=== PATIENT | female | born 1990 | race African-American/Black ===

== ENCOUNTER 2024-09-20 09:35 | Emergency (ER) | payer MEDICARE, MEDICAID, SELFPAY ==
[2024-09-20 09:37] VITALS: BP 135/101; PULSE 78; RESP 16; TEMP 36.6; O2SAT 100; BMI 24.3
--- NOTE | 2024-09-20 11:12 | ED.VIS.FEGU ---
HPI HPI - Female History of Present Illness Chief Complaint: Female C/O Informant: patient Narrative Narrative: 34-year-old female presenting to the emergency room with vaginal discharge. Patient notes a several day history of worsening white vaginal discharge. She denies any itching. She notes some mild discomfort with urination. She denies any swelling or lesions. She denies any fever. She notes some urinary frequency is but states that she does drink a lot of fluids. 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 PFSH PFSH Home Medications ?Medication ?Instructions ?Recorded ?Last Taken ?Type doxycycline hyclate 100 mg tablet 100 mg PO BID #20 tabs 09/20/24 Unknown Rx metronidazole 500 mg tablet 500 mg PO BID #14 tabs 09/20/24 Unknown Rx Allergy/AdvReac Type Severity Reaction Status Date / Time No Known Allergies Allergy Verified 09/20/24 09:37 Social History Smoking Status: Never smoker ROS ROS ED Constitutional Constitutional ED: Denies chills or weight loss Eyes Eyes: Denies change in vision or diplopia ENT ENT ED: Denies ear pain, rhinorrhea or sore throat Cardiovascular Cardiovascular: Denies chest pain, orthopnea, palpitations or racing heartbeat Respiratory/Chest Respiratory/Chest: Denies cough, dyspnea or orthopnea Gastrointestinal Gastrointestinal: Denies abdominal pain, diarrhea, nausea or vomiting Genitourinary Genitourinary ED: Reports dysuria and other Details: Vaginal discharge ; Denies hematuria or urinary frequency Musculoskeletal Musculoskeletal: Denies arthralgias or myalgias Integumentary Denies abscess or rash Neurologic Neurologic: Denies headache(s) or weakness Psychiatric Psychiatric: Denies anxiety, depression, suicidal ideation or suicidal thoughts Endocrine Endocrinology: Denies polydipsia, polyphagia or polyuria Allergic/Immunologic Allergic/Immunologic ED: Denies mouth swelling, tongue swelling or urticaria EXAM Physical Exam Const Vital Signs: 09/20/24 09:37 Temperature 97.8 F Temperature Source Oral Pulse Rate 78 Respiratory Rate 16 Blood Pressure 135/101 H Blood Pressure Mean 112 Pulse Ox 100 Oxygen Delivery Method Room Air Positive well nourished and well developed General Appearance ED: well developed and NAD HEENT Reports normocephalic, head/scalp atraumatic and moist mucous membranes Eyes PERRL and EOMs intact bilaterally Neck no lymphadenopathy, supple and no JVD Resp normal respiratory effort and clear to auscultation bilaterally Cardio regular rate, regular rhythm and no murmurs GI normal to inspection, nondistended, normoactive bowel sounds and non-tender Palpation: soft Narrative: Pelvic examination was performed in the presence of female nurse (Lucy). There is a liquidy white discharge throughout the vagina. I do not see any significant irritation of the cervix. No chandelier sign. No palpable adnexal masses. Uterus is nontender. Back/Spine no CVA tenderness and normal ROM Extremity normal to inspection General Extremety ED: Negative for edema General Extremity: Negative for edema Neuro oriented x3 and CN's II-XII intact bilaterally Sensorium / Orientation: alert Motor Exam: strength 5/5 throughout Psych mental status grossly normal Mood & Affect: Negative for depressed or tearful Skin no rashes or lesions noted and no wounds MDM MDM MDM Narrative Medical decision making narrative: Differential diagnosis includes but not limited to bacterial vaginosis trichomonas candidiasis PID pelvic abscess Urinalysis is negative. test in the urine was canceled because the hospital is currently out of urine and serum test. I explained this to the patient and their only other option for test would be a quantitative hCG. Due to the wait time and the fact the patient does not believe she is she wishes to decline. Wet prep is negative. GC and chlamydial test are pending and I think it is reasonable that we discharged the patient before this comes back. We can call her with the results. I am going to write for metronidazole 500 mg twice daily for 7 days. After the patient was discharged several hours later her chlamydia test came back positive. I made a call in doxycycline as the gonorrhea test is negative. We attempted to call the patient and the phone number provided which ended up being a dental clinic. We will continue to try to find a way to contact her. History & Record Review Discussion w/independent historian: Patient Lab Data Attestation: I reviewed the patient's lab results. Labs: Laboratory Results - last 24 hr 09/20/24 11:17 Urine Color Yellow Urine Clarity Clear Urine pH 6.0 Ur Specific [place] 1.015 Urine Protein Negative Urine Glucose (UA) Normal Urine Ketones 50 H Urine Occult Blood Negative Urine Nitrite Negative Urine Bilirubin Negative Urine Urobilinogen Normal Ur Leukocyte Esterase Negative Urine RBC 0 SEEN Urine WBC 0 SEEN Ur Squamous Epith Cells 0 SEEN Urine Bacteria 0 SEEN Urine Mucus 0 SEEN Urine Test Cancelled Discharge Plan Triage Chief Complaint: Female C/O ED Provider: Mitch Marquez Dx/Rx/DC Orders Clinical Impression: Bacterial vaginosis, Chlamydia infection Instructions: ED Bacterial Vaginosis (BV) Prescriptions: New metronidazole 500 mg tablet 500 mg PO BID Qty: 14 0RF doxycycline hyclate 100 mg tablet 100 mg PO BID Qty: 20 0RF Primary Care Provider: Care Physician,Brook Primary Referrals: Bridgett Fang DO [Med Staff - Active Staff] - As soon as possible (for gynecology) NOT,DEFINED [Non-Staff] - Print Language: Mauritanian Disposition Disposition: Home, Self Care Discharge Date/Time: 09/20/24 13:08
[2024-09-20 11:24] LABS: Bacteria 0 SEEN /hpf (None Seen); Mucous, Urine 0 SEEN /hpf (<or=2+); Red Blood Cells-Urine 0 SEEN /hpf (0-5); Squamous Epithelial Cells - UA 0 SEEN /hpf (5-10); White Blood Cells 0 SEEN /hpf (0-5)
[2024-09-20 11:31] LABS: Color, Urine Yellow (Yellow); Glucose, Dipstick Normal (Normal); Ketone-Dipstick 50 mg/dl (Negative); Leukocyte Esterase-Dipstick Negative /ul (Negative); Nitrite-Dipstick Negative (Negative); Occult Blood-Urine Negative /ul (Negative); Protein-Dipstick Negative (Negative); Specific Gravity, Urine 1.015 (1.002-1.030); Urine Bilirubin Dipstick Negative (Negative); Urine Clarity Clear (Clear); Urine Urobilinogen Normal (Normal)
--- NOTE | 2024-09-20 11:32 | ED.RN ---
dr. chavis notified that lab stated we are unable to do urine tests until this afternoon d/t lack of supply.
--- NOTE | 2024-09-20 14:21 | ED.RN ---
THIS RN ATTEMPTED TO CALL PT REGARDING POSITIVE CHLAMYDIA AND INFORM HER OF NEW RX SENT TO [facility]. PHONE CALL RANG AND WENT THROUGH TO DENTAL. NO PATIENT CONTACT MADE.
== END 2024-09-20 13:08 | disposition home or self-care (01) ==
PROVIDERS: Emergency Provider Emergency Medicine; Visit Provider Emergency Medicine
DX: N76.0 Acute vaginitis (principal); A74.9 Chlamydial infection, unspecified
CPT/HCPCS: 81001; 87210; 87491; 87591; 87661; 99282

== ENCOUNTER → 2025-01-13 | Outpatient (CLI) | payer MEDICARE, MEDICAID, SELFPAY ==
[2025-01-13 12:24] LABS: Absolute Lymphocyte Count 2.56 X10^3/uL (0.83-4.51); Basophil# 0.06 X10^3/uL; Basophil% 0.9 % (0-1); Eosinophil# 0.11 X10^3/uL; Eosinophils% 1.7 % (0-5); Hematocrit 40.2 % (37-47); Hemoglobin 13.1 g/dL (12.0-15.0); Lymphocyte # 2.56 X10^3/ul (0.83-4.51); Lymphocyte % 40.5 % (19-41); Mean Corp Hgb Conc 32.6 g/dL (32-36); Mean Corpuscular Hgb 31.4 pg (27.0-32.0); Mean Corpuscular Volume 96.4 fL (81-99); Mean Platelet Vol. 10.4 fl (6.2-12.0); Monocyte# 0.62 X10^3/uL; Monocyte% 9.8 % (0-10); NRBC Flagged by Analyzer 0 % (0-5); Neutrophil # 2.96 X10^3/uL (2.7-7.7); Neutrophil % 46.9 % (47-70); Platelet Count 238 K/mm3 (150-450); RBC Distribution Width CV 12.5 % (11.6-14.6); RBC Distribution Width SD 44.3 fl (35.1-43.9); Red Blood Count 4.17 M/mm3 (4.2-5.4); White Blood Count 6.3 K/mm3 (4.4-11.0)
[2025-01-13 12:55] LABS: ALB/GLOB Ratio 0.8 RATIO (0.9-2.4); AST(SGOT) 22 U/L (15-37); Alanine Aminotransfer ALT/SGPT 19 U/L (13-56); Albumin, Serum 3.7 g/dL (3.2-5.0); Alkaline Phosphatase 56 U/L (45-117); Anion Gap 7 (5-15); BUN 11 mg/dL (7-18); BUN/Creat Ratio 15.5 RATIO (10-20); Calcium,Total 8.9 mg/dL (8.5-10.1); Chloride 107 mmol/L (98-107); Creatinine, Serum 0.71 mg/dL (0.55-1.02); EST Glomerular Filtration Rate 101 mL/min (>60); Est Glom Filt Rate - Afr Amer 123 mL/min (>60); Globulin 4.8 g/dL (2.2-4.2); Glucose 77 mg/dL (74-106); Protein, Total 8.5 g/dL (6.4-8.2); Sodium Level 137 mmol/L (136-145)
== END | disposition home or self-care (01) ==
LOC: BIMLAB 09:23
PROVIDERS: PCP Internal Medicine; Referring Provider Internal Medicine; Visit Provider Internal Medicine
DX: E89.0 Postprocedural hypothyroidism (principal)
CPT/HCPCS: 36415; 80053; 85025

== ENCOUNTER 2025-05-04 09:16 | Emergency (ER) | payer MEDICARE, SELFPAY ==
[2025-05-04 09:17] VITALS: BP 150/102; PULSE 83; RESP 16; TEMP 36.6; O2SAT 98; BMI 28.4
--- NOTE | 2025-05-04 09:25 | ED.VIS.DYS ---
HPI History of Present Illness Chief Complaint: Shortness of Breath Detail of Chief Complaint: 2 days ago developed shortness of breath Informant: patient Onset/Context/Timing Onset: Days Context: - (Patient states she developed shortness of breath.) Timing: Continuous Quality: Negative for Dyspnea on exertion, Orthopnea, PND or Wheezing Current Severity: Mild Maximum Severity: Mild Worsened by: Nothing Relieved by: Nothing Associated Symptoms Negative for cough, rhinorrhea, post nasal drip, ear pain, fever, sore throat, subjective, chills or sweats Chest Pain: Positive for None Narrative Narrative: Patient is a 34-year-old woman. She has surgically induced hypothyroidism. She had a thyroidectomy for goiter. Apparently there was a small neoplastic lesion noted. She presently has no active cancer. She is not on hormonal therapy. She has no risk factors for VTE. She has no history of VTE. She denies leg pain, swelling discoloration. Patient states she is short of breath. She is short of breath at rest. She denies fever, chills night sweats. She denies visual, ocular auditory symptoms. She denies rhinorrhea, congestion, postnasal drainage. She states she has mild throat discomfort. She has no dyspnea. She denies cough. She denies pleuritic chest pain. She denies pressure, tightness heaviness. She has no symptoms with exertion. She denies GI symptoms. PE Risk Factors: Negative for Cancer, OCP + Smoking + > 35, Prior DVT or PE, Recent immobilization, Recent surgery or Recent travel Prior similar symptoms: No Recent Illness/Hospitalization: No [facility] Medical History Thyroid cancer Goiter Home Medications ?Medication ?Instructions ?Recorded ?Last Taken ?Type levothyroxine 112 mcg capsule 112 mcg PO QDAY 01/11/25 Unknown History hydrocortisone acetate 25 mg 25 mg ID QHS #12 ea 01/13/25 Unknown Rx rectal suppository (Anusol-HC) psyllium husk 3.4 gram/5.4 gram 1 tbsp PO QDAY #660 grams 01/13/25 Unknown Rx oral powder (Metamucil) amoxicillin 500 mg tablet 500 mg PO TID #30 tabs 02/21/25 Unknown Rx Allergy/AdvReac Type Severity Reaction Status Date / Time No Known Allergies Allergy Verified 05/04/25 09:16 Family History Grandmother Anemia Arthritis Thyroid disorder Mother Arthritis Thyroid disorder Aunt Arthritis Breast cancer Daughter Asthma Aunt Colon cancer Aunt Thyroid disorder Surgical History H/O thyroidectomy Social History household members: family current occupational status: employed 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 Smoking Status: Never smoker second hand exposure: No alcohol intake: never substance use type: does not use what type of physical activity do you participate in: none do you feel safe at home: Yes ROS ROS ED Constitutional Constitutional ED: Denies chills, fever(s), sweats or weight loss ENT ENT ED: Reports sore throat; Denies ear pain or rhinorrhea Cardiovascular Cardiovascular: Denies chest pain, orthopnea, palpitations, paroxysmal nocturnal dyspnea or racing heartbeat Respiratory/Chest Respiratory/Chest: Reports dyspnea; Denies cough, dyspnea on exertion, orthopnea or paroxysmal nocturnal dyspnea Gastrointestinal Gastrointestinal: Denies abdominal pain, diarrhea, melena, nausea or vomiting Genitourinary Genitourinary ED: Reports other Details: She denies heavy menstrual bleeding. ; Denies dysuria, hematuria or urinary frequency Musculoskeletal Musculoskeletal: Denies arthralgias or myalgias Integumentary Denies rash Neurologic Neurologic: Denies headache(s), paresthesias or weakness Hematologic/Lymphatic Hematologic/Lymphatic: Denies easy bleeding or easy bruising EXAM Physical Exam Const Vital Signs: 05/04/25 09:17 Temperature 97.9 F Temperature Source Temporal Pulse Rate 83 Respiratory Rate 16 Blood Pressure 150/102 H Blood Pressure Mean 118 Pulse Ox 98 Oxygen Delivery Method Room Air Positive well nourished and well developed General Appearance ED: well developed and NAD; Negative for pallor HEENT Reports moist mucous membranes HEENT Narrative: Head is atraumatic normocephalic. Ears normal. Nares patent. Posterior pharynx is normal. Eyes PERRL and EOMs intact bilaterally General Eye ED: Yes pale conjunctiva; Negative for scleral icterus Neck no lymphadenopathy, supple, no meningeal signs and no JVD Resp normal respiratory effort and clear to auscultation bilaterally Cardio regular rate, regular rhythm, S1 normal heart sound, S2 normal heart sound and no murmurs GI non-tender, non-distended and no masses Auscultation: normoactive bowel sounds Palpation: soft Extremity normal to inspection Extremity Narrative: There is no asymmetry, swelling, discoloration, leg vein distention, palpable cords or tenderness along the distribution of the deep venous system. Neuro oriented x3 and CN's II-XII intact bilaterally Sensorium / Orientation: alert Psych mental status grossly normal Skin no wounds and skin turgor normal General Skin Exam: Negative for jaundice or pallor Lesions: no lesions Rashes: no rashes MDM MDM MDM Narrative Medical decision making narrative: Patient with dyspnea. This could be shortness of breath of unknown cause, possible pneumonia, PE was not considered since Wells score is less than 3 and patient is PERC negative. History is not consistent with cardiac ischemia. She does not have history of asthma or COPD and there is no wheezing. Patient has equal breath sounds and doubt pneumothorax. To evaluate her complaints CBC was obtained since her conjunctive is pale to rule out anemia. Chest x-ray to assess for pulmonary causes. Office records from January 2025 were reviewed. Records were authored by Aisha Gaines. Patient was seen for rectal pain, also noted to have postsurgical hypothyroidism, history of thyroid cancer, remote, History & Record Review Additional record(s) reviewed:: Prior outpatient record, Prior ED visit and Prior labs (Patient was seen August 2020 for in the ER. She was diagnosed with bacterial vaginosis and chlamydia infection.) Lab Data Attestation: I reviewed the patient's lab results. Lab results narrative: CBC is unremarkable. Labs: Laboratory Results - last 24 hr 05/04/25 09:35 WBC 7.1 RBC 3.82 L Hgb 12.6 Hct 36.5 L MCV 95.5 MCH 33.0 H MCHC 34.5 RDW Std Deviation 43.4 RDW Coeff of Perla 12.6 Plt Count 268 MPV 10.7 Radiography Chest X-Ray - ED: 2 View, Read by ED Physician (Independently interpreted by me at 1003), Normal, Heart, Lungs, Mediastinum, Bony Structures and No Acute Disease Differential Diagnosis Chest pain/SOB: pneumothorax Reason(s) pneumothorax less likely: Positive for bilateral breath sounds and [employer] TR[employer] HAND withhout PTX and pneumonia Reason(s) pneumonia less likely: Positive for no infiltrate on CXR, no noted fever and symptoms not consistent with acute infection Discharge Plan Triage Chief Complaint: Shortness of Breath ED Provider: Bjorn Hurd Dx/Rx/DC Orders Clinical Impression: Dyspnea, Post-surgical hypothyroidism, Elevated blood-pressure reading without diagnosis of hypertension Instructions: ED Dyspnea, ED Hypertension, To Be Confirmed Prescriptions: No Action levothyroxine 112 mcg capsule 112 mcg PO QDAY hydrocortisone acetate [Anusol-HC] 25 mg suppository 25 mg ID QHS Qty: 12 0RF Metamucil 3.4 gram/5.4 gram powder 1 tbsp PO QDAY Qty: 660 0RF Rx Instructions: mix into at least 8 oz of water or juice before administering amoxicillin 500 mg tablet 500 mg PO TID Qty: 30 0RF Primary Care Provider: Radha Morgan Referrals: Radha Morgan MD [Primary Care Provider] - 1-2 Weeks Activity Restrictions/Additional Instructions: The cause of your shortness of breath is unknown. Your workup did not reveal any obvious cause. Recommend outpatient follow-up and workup if persists. Your blood pressure is elevated. Recommendation is to have your blood pressure rechecked in 1 to 2 weeks. Print Language: Mohawk Disposition Disposition: Home, Self Care
[2025-05-04 09:42] LABS: Hematocrit 36.5 % (37-47); Hemoglobin 12.6 g/dL (12.0-15.0); Mean Corp Hgb Conc 34.5 g/dL (32-36); Mean Corpuscular Volume 95.5 fL (81-99); Mean Platelet Vol. 10.7 fl (6.2-12.0); Platelet Count 268 K/mm3 (150-450); RBC Distribution Width CV 12.6 % (11.6-14.6); RBC Distribution Width SD 43.4 fl (35.1-43.9); Red Blood Count 3.82 M/mm3 (4.2-5.4); White Blood Count 7.1 K/mm3 (4.4-11.0)
--- NOTE | 2025-05-04 09:45 | RAD_ITS ---
PROCEDURE: CHEST PA AND LATERAL 05/04/2025 REASON FOR EXAM: SHORTNESS OF BREATH TECHNIQUE: Frontal and lateral views of the chest. COMPARISON: None. FINDINGS: The lungs are clear. The heart borders mediastinum and pulmonary vascular pattern are normal. The upper abdominal bowel gas pattern is normal. There are no bony abnormalities. RAD/Chest PA and Lateral IMPRESSION: No evidence of acute cardiopulmonary pathology. Reading Location: [id number]
[2025-05-04 10:07] VITALS: O2SAT 96
[2025-05-04 10:11] VITALS: BP 148/101; PULSE 78; RESP 16; TEMP 36.6; O2SAT 97
== END 2025-05-04 10:13 | disposition home or self-care (01) ==
PROVIDERS: Emergency Provider Emergency Medicine; PCP Internal Medicine; Visit Provider Emergency Medicine
DX: R06.00 Dyspnea, unspecified (principal); E89.0 Postprocedural hypothyroidism; R03.0 Elevated blood-pressure reading, without diagnosis of hypertension; Z85.850 Personal history of malignant neoplasm of thyroid
CPT/HCPCS: 71046; 85027; 99282

== ENCOUNTER → 2025-05-09 | Outpatient (CLI) | payer MEDICARE, MEDICAID, SELFPAY ==
--- OUTSIDE RECORDS SUMMARY | 2025-05-09 23:39 | XMS RPT_ITS | CCD ---
Author Organization [facility] Care Team Providers Care Protection Consultant Name Role Phone HECTOR ALBERTO Unavailable Unavailable HECTOR ALBERTO Unavailable Unavailable Unavailable Unavailable Unavailable Unavailable Primary Care Provider Unavailabl e No, Physician Primary Care Provider Unavailabl e No, Physician Primary Care Provider Unavailabl e Unavailable Primary Care Provider Unavailabl e No, Physician Primary Care Provider Unavailabl e No, Physician Primary Care Provider Unavailabl e Unavailable Primary Care Provider Unavailabl e Charles Eric DO Primary Care Provider Charles Eric DO Primary Care Provider [phone] None, No PCP Unavailable Unavailable Unavailable Unavailable Required, No Pcp Unavailable Unavailable Aguirre, Cliff Unavailable Unavailable Aguirre, Dr. Cliff Rg Attending Unav ailable Aguirre, Dr. Cliff Rg Referring Unav ailable Aguirre, Dr. Cliff Rg Admitting Unav ailable Aguirre, Dr. Cliff Rg Attending Unav ailable Aguirre, Dr. Cliff Rg Referring Unav ailable Jeremi, Dr. Mia Christensen Attending Unavai lable Aguirre, Dr. Cliff Rg Attending Unav ailable Aguirre, Dr. Cliff Rg Referring Unav ailable Charles Eric DO Primary Care Provider [phone] CHARLES ERIC Primary Care Unavailable HECTOR CERNA Referring Unavailable HECTOR CERNA Admitting Unavailable HECTOR CERNA Referring Unavailable HECTOR CERNA Attending Unavailable CHARLES ERIC Primary Care Unavailable Aguirre, Cliff Attending Unavailable Aguirre, Cliff Referring Unavailable Aguirre, Cliff Attending Unavailable Aguirre, Cliff Referring Unavailable Aguirre, Cliff Attending Unavailable Aguirre, Cliff Attending Unavailable Aguirre, Cliff Referring Unavailable Aguirre, Cliff Attending Unavailable Aguirre, Cliff Referring Unavailable Aguirre, Cliff Attending Unavailable Aguirre, Cliff Referring Unavailable Aguirre, Cliff Attending Unavailable Aguirre, Cliff Attending Unavailable Aguirre, Cliff Referring Unavailable Aguirre, Cliff Attending Unavailable Dr. Davida Chan Attending U navailable Aguirre, Cliff Referring Unavailable Aguirre, Cliff Attending Unavailable Aguirre, Cliff Referring Unavailable Generic Provider MD, No Assigned Pcp Primary Car e Provider Unavailable Generic Provider MD, No Assigned Pcp Primary Car e Provider Unavailable GENERIC PROVIDER, NO ASSIGNED PCP Primary Care Unavailable HERRERA VILLEGAS Attending Unavailable GENERIC PROVIDER, NO ASSIGNED PCP Primary Care Unavailable MÓNICA BUSTAMANTE Attending Unavailable GENERIC PROVIDER, NO ASSIGNED PCP Primary Care Unavailable GENERIC PROVIDER, NO ASSIGNED PCP Primary Care Unavailable DANIELLE GARCIA Primary Care Unavailable DANIELLE GARCIA Primary Care Unavailable NO, PHYSICIAN Primary Care Unavailable ADLY, ANDRES ADLY ANDRES Referring Unava ilable ADLY, ANDRES ADLY ANDRES Attending Unava ilable CHARLES ERIC Primary Care Unavailable ADLY, ANDRES ADLY ANDRES Referring Unava ilable ADLY, ANDRES ADLY ANDRES Attending Unava ilable CHARLES ERIC Primary Care Unavailable ADLY, ANDRES ADLY ANDRES Referring Unava ilable No, Physician Primary Care Provider UnavailHECTOR Feliz Attending Unavailable CHARLES ERIC Primary Care Unavailable NO, PHYSICIAN Primary Care Unavailable ADLY, ANDRES ADLY ANDRES Attending Unava ilable NO, PHYSICIAN Primary Care Unavailable ADLY, ANDRES ADLY ANDRES Attending Unava ilable ADLY, ANDRES ADLY ANDRES Attending Unava ilable CHARLES ERIC Primary Care Unavailable Care Physician, No Primary Referring Unava ilable Care Physician, No Primary Primary Care Unava ilable Leonidas Noe Attending Unavailable Rothbury, Radha Primary Care Unavailable Bjorn Hrud Attending Unavailable Rothbury, Radha Primary Care Unavailable Waqas Gtz Attending Unavailable Cathy, Radha Referring Unavailable Cathy, Radha Attending Unavailable Care Physician, No Primary Referring Unava ilable Care Physician, No Primary Primary Care Unava ilable Radha Morgan Attending Unavailable Radha Morgan Primary Care Unavailable Radha Morgan Referring Unavailable Mitch Marquez Attending Unavailable Care Physician, No Primary Primary Care Unava ilable Care Physician, No Primary Primary Care Provider Unavailable Care Physician, No Primary Referring Provider Un available Cathy GUAMAN, Dr. Garcia Attending Provider Cathy GUAMAN, Dr. Garcia Primary Care Provider [phone] Cathy GUAMAN, Dr. Garcia Referring Provider Waqas Gtz Attending Provider Vickey GUAMAN, Dr. [place] Emergency Provider Ungerer DATA ENTRY ANALYST-C, Komal Attending Provider [phone] Ungerer DATA ENTRY ANALYST-C, Komal Referring Provider [phone] Medications Current Medications Medication Drug Class(es) Dates Sig (Normalized) Sig (Original) acetaminophen 325 mg / oxyCODONE hydrochloride 5 mg oral tablet (3 sources) Opioid Agonist Start: 12-31-2023 End: 01-05-2024 oxyCODONE-acetamin ophen (PERCOCET) 5-325 mg per tablet Indications: Multinodular goiter Take 1 (one) tablet to 2 (two) tablets by mouth every 4 (four) hours as needed (Days supply per fill: 5) . 12 tablet 0 01/02/2024 01/05/2024 Active [id number] 200 actuat albuterol 0.09 mg/actuat metered dose inhaler (1 source) beta2-Adrenergic Agonist Start: 05-09-2025 Albuterol Sulfate (Ventolin Hfa) 90 mcg/actuation HFA aerosol inhaler Active 2 NMA INHALATION EVERY 4-6 HOURS as needed for shortness of breath or wheezing 6.7 May 09, 2025 12:00am azithromycin 250 mg oral tablet (3 sources) Macrolide Antimicrobial Start: 02-10-2024 End: 02-14-2024 azithromycin (Zithromax Z-Delmar) 250 mg tablet Indications: Other sinusitis, unspecified chronicity 2 tablets daily on day one then one tablet daily on days 2 thru 5 6 tablet 02/10/2024 Active Start: 12-19-2018 End: 12-19-2018 azithromycin (ZITHROMAX) tab let 1,000 mg calcium carbonate 1250 mg / cholecalciferol 200 unt oral tablet (9 sources) Vitamin D Start: 01-02-2024 End: 02-01-2024 take 1 tablet by mouth four times daily at mealtime calcium-vitamin D (OS-IRASEMA +D) 500 mg-5 mcg (200 unit) per tablet Take 1 (one) tablet by mouth 4 (four) times a day with meals . 120 tablet 0 01/02/2024 Active Start: 12-31-2023 End: 01-02-2024 calcium-vitamin D (OS-IRASEMA +D ) 500 mg-5 mcg (200 unit) per tablet 1 tablet cephalexin 500 mg oral capsule (1 source) Cephalosporin Antibacterial Start: 03-01-2021 End: 03-07-2021 take 1 capsule by mouth every twelve hours cephALEXin 500 MG capsule Take 1 capsule by mouth every 12 hours for 6 days. 12 capsule 0 03/01/2021 03/07/2021 Active cromolyn sodium 40 mg/ml ophthalmic solution (11 sources) Mast Cell Stabilizer Start: 04-21-2018 take 2 drop(s) into the eye(s) four times daily cromolyn 4 % Solution Place 2 drops in both eyes 4 times daily. 10 mL 0 04/21/2018 Active cyclobenzaprine hydrochloride 10 mg oral tablet (11 sources) Muscle Relaxant Start: 11-02-2018 take 1 tablet by mouth three times daily as needed for muscle spasms cyclobenzaprine 10 MG Tab tablet Take 1 tablet by mouth 3 times daily as needed for Muscle spasms. 21 tablet 0 11/02/2018 Active levonorgestrel 0.015788 mg/hr intrauterine system (16 sources) Progestin, Progestin-containi ng Intrauterine Device Start: 11-04-2023 End: 11-02-2031 levonorgestreL (MIRENA) 21 mcg/24 hours (8 yrs) 52 mg IUD 1 (one) each by Intrauterine route continuous . 11/04/2023 11/02/2031 Active levothyroxine sodium 0.112 mg oral capsule (15 sources) l-Thyroxine Start: 01-11-2025 take 1 capsule by mouth once daily Levothyroxine 112 mcg capsule Active 112 ug PO daily January 11, 2025 1:00am Start: 09-24-2024 take 1 tablet by inge th once daily levothyroxine (SYNTHROID, LEVOTHROID) 11 2 MCG tablet Indications: Postoperative hypothyroidism Take 1 (one) tablet (112 mcg total) by mouth once daily Take on an empty stomach (only with water) at least 1 hr before other medications/food/drinks, and 4 hours apart from any calcium, magnesium, iron or multivitamin supplements. . 30 tablet 11 09/24/2024 Active Start: 04-20-2024 take 1 tablet by inge th once daily levothyroxine (SYNTHROID, LEVOTHROID) 11 2 MCG tablet Indications: Postoperative hypothyroidism Take 1 (one) tablet (112 mcg total) by mouth once daily Take on an empty stomach (only with water) at least 1 hr before other medications/food/drinks, and 4 hours apart from any calcium, magnesium, iron or multivitamin supplements. . 30 tablet 11 04/20/2024 Active Start: 04-09-2024 End: 05-09-2024 take 1 tablet by mouth once daily levothyroxine (SYNTHROID, LEVOTHROID) 10 0 MCG tablet Indications: Postoperative hypothyroidism Take 1 (one) tablet (100 mcg total) by mouth once daily . 30 tablet 0 04/09/2024 05/09/2024 Active Start: 12-31-2023 End: 03-14-2024 take 1 tablet by mouth once daily levothyroxine (SYNTHROID, LEVOTHROID) 10 0 MCG tablet Take 1 (one) tablet (100 mcg total) by mouth once daily . 30 tablet 0 02/02/2024 02/13/2024 Discontinued metoclopramide 10 mg oral tablet (10 sources) Dopamine-2 Receptor Antagonist Start: 12-22-2020 take 1 tablet by mouth four times daily as needed for nausea metoclopramide (REGLAN) 10 MG tablet Take 1 (one) tablet (10 mg total) by mouth 4 (four) times a day as needed (Nausea with vomiting) . 30 tablet 1 12/22/2020 Active Start: 09-23-2019 End: 12-13-2019 take 1 tablet by mouth four times daily as needed for nausea metoclopramide (REGLAN) 10 MG tablet Take 1 (one) tablet (10 mg total) by mouth 4 (four) times a day as needed (Nausea with vomiting) . 30 tablet 1 09/23/2019 12/13/2019 Discontinued oxyCODONE hydrochloride 5 mg oral tablet (3 sources) Opioid Agonist Start: 05-15-2021 End: 05-22-2021 take 1 tablet by mouth every four hours as needed for pain and pain and pain, then take 1 tablet by mouth every four hours as needed for pain and pain and pain, then take 6 tablets by mouth once daily as needed for pain and pain and pain, then take 1 tablet by mouth every four hours as needed for pain and pain and pain, then take 6 tablets by mouth once daily as needed for pain and pain and pain oxyCODONE (ROXICODONE) 5 MG immediate release tablet Indications: Pain related to vaginal delivery Take 1 (one) tablet (5 mg total) by mouth every 4 (four) hours as needed for pain (1 tab every 4 hr prn pain, no more 6 pills a day, not more 7 days G89.18 Post op pain) 1 tab every 4 hr prn pain: no more 6 pills a day,not more 7d G89.18 Post op pain . 5 tablet 0 05/15/2021 05/22/2021 Active Start: 05-09-2020 End: 05-18-2020 oxyCODONE (ROXICODONE) 5 MG immediate release tablet Indications: Pain related to vaginal delivery Take 1 (one) tablet to 2 (two) tablets (5-10 mg total) by mouth every 4 to 6 hours as needed for pain. No more than 6 tabs a day : not more than 7 days 10 tablet 0 05/10/2020 05/18/2020 Active phenazopyridine hydrochloride 200 mg delayed release oral tablet (2 sources) Start: 01-19-2022 take 1 tablet by mouth three times daily phenazopyridine 200 MG tablet Take 1 tablet by mouth 3 times daily. 6 tablet 0 01/19/2022 Active psyllium 3400 mg powder for oral suspension (2 sources) Start: 01-13-2025 End: 05-09-2025 Psyllium Husk (Metamucil) 3.4 gram/5.4 gram powder Active 1 tbsp PO daily 660 May 09, 2025 2:19pm mix into at least 8 oz of water or juice before administering sulfamethoxazole 800 mg / trimethoprim 160 mg oral tablet (3 sources) Dihydrofolate Reductase Inhibitor Antibacterial, Sulfonamide Antimicrobial Start: 06-09-2019 End: 06-16-2019 take 1 tablet by mouth twice daily sulfamethoxazole-tri methoprim 800-160 MG Tab per tablet Take 1 tablet by mouth 2 times daily for 7 days. 14 tablet 0 06/09/2019 06/16/2019 Active Completed/Discontinued Medications Medication Drug Class(es) Dates Sig (Normalized) Sig (Original) acetaminophen 325 mg oral tablet (5 sources) Start: 12-31-2023 End: 01-02-2024 take 1 tablet by mouth every six hours as needed for pain 650 mg, Oral, Every 6 hours PRN, mild pain, Starting on Fri12/31/23 at 1024 Start: 05-06-2023 take 3 tablets by mo uth every six hours acetaminophen 325 mg oral tablet ; 3 tab(s) orally every 6 hours Quantity: 0 Refills: 0 Ordered: 06-May-2023 Cliff Aguirre Start: 06-May-2023 Generic Substitution Allowed Start: 11-18-2020 End: 11-18-2020 acetaminophen (TYLENOL) tabl et 975 mg Start: 05-09-2020 End: 05-11-2020 take 1 tablet by mouth every four hours as needed 650 mg, Oral, Every 4 hours PRN, mild pain, Starting Fri05/09/20 at 2119, Start: 06-08-2019 End: 06-08-2019 acetaminophen (TYLENOL) tabl et 1,000 mg aluminum hydroxide 40 mg/ml / magnesium hydroxide 40 mg/ml / simethicone 4 mg/ml oral suspension (1 source) Start: 05-09-2020 End: 05-11-2020 take 30 mL by mouth every four hours as needed 30 mL, Oral, Every 4 hours PRN, indigestion, Starting Fri05/09/20 at 2119, amoxicillin 500 mg oral tablet (1 source) Penicillin-class Antibacterial Start: 02-21-2025 End: 05-04-2025 take 1 tablet by mouth three times daily Amoxicillin 500 mg tablet Discontinued 500 mg PO THREE TIMES A DAY February 21, 2025 12:00am May 04, 2025 10:12am amoxicillin 875 mg / clavulanate 125 mg oral tablet (2 sources) Penicillin-class Antibacterial Start: 04-14-2023 take 1 tablet by mouth once daily Amoxicillin-Pot Clavulanate 875-125 MG Oral Tablet TAKE 1 TABLET EVERY 12 HOURS DAILY. Quantity: 20 Refills: 0 Ordered: 14-Apr-2023 Cliff Aguirre MD Start : 14-Apr-2023 Active bacitracin 0.5 unt/mg topical ointment (1 source) Start: 06-09-2022 End: 06-09-2022 bacitracin ointment 1 Application Start: 06-09-2022 End: 06-09-2022 bacitracin ointment 1 Applic ation benzocaine 200 mg/ml topical spray (1 source) Standardized Chemical Allergen Start: 05-09-2020 End: 05-11-2020 1 application, Topical, Every 4 hours PRN, pain, Starting 05/09/20 at 2119, To perineal area. calcium chloride 0.0014 meq/ml / potassium chloride 0.004 meq/ml / sodium chloride 0.103 meq/ml / sodium lactate 0.028 meq/ml injectable solution (4 sources) Start: 01-01-2024 End: 01-01-2024 take 100 mL intravenously every hour 100 mL/hr, Intravenous, Continuous, Starting on Fanny 01/01/24 at 0300, PACU (only) Start: 12-31-2023 End: 01-02-2024 lactated Ringers infusion Start: 04-25-2021 End: 04-25-2021 lactated Ringers infusion Start: 05-09-2020 End: 05-11-2020 lactated Ringers infusion calcium gluconate 2 g in sodium chloride 0.9 % (NS) 100 mL IVPB (1 source) Start: 01-01-2024 End: 01-01-2024 calcium gluconate 2 g in sodium chloride 0.9 % (NS) 100 mL IVPB cefTRIAXone (ROCEPHIN) 1 g in sodium chloride 0.9% (MB PLUS) 50 mL (total volume) IVPB (1 source) Start: 06-09-2019 End: 06-09-2019 cefTRIAXone (ROCEPHIN) 1 g in sodium chloride 0.9% (MB PLUS) 50 mL (total volume) IVPB cefTRIAXone (ROCEPHIN) 250 mg in lidocaine 1% (PF) (XYLOCAINE MPF) IM injection (1 source) Start: 12-19-2018 End: 12-19-2018 cefTRIAXone (ROCEPHIN) 250 mg in lidocaine 1% (PF) (XYLOCAINE MPF) IM injection ciprofloxacin 3 mg/ml ophthalmic solution (6 sources) Quinolone Antimicrobial Start: 11-07-2023 End: 12-15-2023 take 1 drop(s) into the eye(s) four times daily ciprofloxacin HCl (CILOXAN) 0.3 % ophthalmic solution INSTILL 1 DROP IN RIGHT EYE FOUR TIMES DAILY FOR 7 DAYS 0 11/07/2023 12/15/2023 Discontinued diphenhydrAMINE (1 source) Histamine-1 Receptor Antagonist Start: 12-31-2023 End: 12-31-2023 diphenhydrAMINE (BENADRYL) injection 50 mg diphenhydrAMINE (BENADRYL) oral solid 25 mg (1 source) Start: 05-09-2020 End: 05-11-2020 take 25 mg by mouth every six hours as needed diphenhydrAMINE (BENADRYL) oral solid 25 mg docusate sodium 100 mg oral capsule (1 source) Start: 05-09-2020 End: 05-11-2020 take 100 mg by mouth twice daily as needed for constipation 100 mg, Oral, 2 times daily PRN, constipation, Starting 05/09/20 at 2119, Hold for loose stools DO NOT CRUSH OR CHEW. docusate sodium 50 mg / sennosides, shelter 8.6 mg oral tablet (1 source) Start: 05-09-2020 End: 05-11-2020 take 1 tablet by mouth once daily as needed for constipation 2 tablet, Oral, Nightly PRN, constipation, Starting 05/09/20 at 2119, [] Hold for loose stools. Do Not Crush or Chew if administering orally due to bitter taste. May be crushed if given via tube. doxycycline hyclate 100 mg oral tablet (1 source) Tetracycline-clas s Drug Start: 09-20-2024 End: 01-11-2025 take 1 tablet by mouth twice daily Doxycycline Hyclate 100 mg tablet Discontinued 100 mg PO TWICE A DAY September 20, 2024 12:00am January 11, 2025 12:41pm famotidine 20 mg oral tablet (1 source) Histamine-2 Receptor Antagonist Start: 05-09-2020 End: 05-11-2020 take 1 tablet by mouth every twelve hours as needed famotidine (PEPCID) tablet 20 mg 20 ml fentaNYL 0.05 mg/ml injection (1 source) Opioid Agonist Start: 05-09-2020 End: 05-11-2020 take 25-50 ug intravenous route every hour as needed fentaNYL (SUBLIMAZE) injection 25-50 mcg ferrous sulfate 325 mg oral tablet (13 sources) Start: 03-18-2023 take 1 tablet by mouth twice daily at mealtime Ferrous Sulfate 325 (65 Fe) MG Oral Tablet TAKE 1 TABLET TWICE DAILY WITH MEALS. Quantity: 60 Refills: 11 Ordered: 18-Mar-2023 Cliff Aguirre MD Start : 18-Mar-2023 Active Start: 05-10-2020 End: 01-30-2021 take 1 tablet by mouth once daily at breakfast ferrous sulfate 325 (65 FE) MG tablet Take 1 (one) tablet (325 mg total) by mouth daily with breakfast . 30 tablet 0 05/10/2020 01/30/2021 Discontinued fluconazole 100 mg oral tablet (7 sources) Azole Antifungal Start: 03-31-2023 Fluconazole 1 00 MG Oral Tablet TAKE 1 TABLET Other 1 tablet every 48 hours Quantity: 2 Refills: 0 Ordered: 31-Mar-2023 Cliff Aguirre MD Start : 31-Mar-2023 Active Start: 04-23-2019 End: 04-23-2019 fluconazole (DIFLUCAN) table t 200 mg hydrocortisone acetate 25 mg rectal suppository (2 sources) Corticosteroid Start: 01-13-2025 End: 05-04-2025 Hydrocortisone Acetate (Anusol-Hc) 25 mg suppository Discontinued 25 mg RC AT BEDTIME January 13, 2025 1:00am May 04, 2025 10:12am Start: 04-27-2024 End: 05-27-2024 hydrocortisone 1 % cream Ind ications: Rectal irritation Apply 1 Application topically 2 times a day. Apply to affected area 2 times daily 6 g 04/27/2024 05/27/2024 Active 0.5 ml HYDROmorphone hydrochloride 1 mg/ml prefilled syringe (2 sources) Opioid Agonist Start: 12-31-2023 End: 12-31-2023 HYDROmorphone (DILAUDID) injection 2 mg Start: 12-31-2023 End: 12-31-2023 0.25 mg, Intravenous, Every 5 min PRN, Pain, Starting on Fri12/31/23 at 1024, For 6 doses, PACU (only) Give if fentanyl not effective or not ordered. Do not give more than 1.5 mg total. ibuprofen 600 mg oral tablet (13 sources) Nonsteroidal Anti-inflammatory Drug Start: 05-06-2023 End: 01-02-2024 take 1 tablet by mouth every six hours as needed for headache and pain 600 mg, Oral, Every 6 hours PRN, headaches, mild pain, Starting on Fri12/31/23 at 1214 [] Give with food. [] Use ketorolac (TORADOL) IV first for mild pain if ordered/active. [] Do not give within 6 hours of ketorolac (TORADOL). Do Not Crush or Chew if administering orally due to bitter taste. May be crushed if given via tube. Start: 05-15-2021 End: 06-14-2021 take 1 tablet by mouth every eight hours as needed ibuprofen (ADVIL,MOTRIN) 800 MG tablet Take 1 (one) tablet (800 mg total) by mouth every 8 (eight) hours as needed for pain . 30 tablet 1 05/15/2021 06/14/2021 Active Start: 05-10-2020 End: 06-09-2020 take 1 tablet by mouth every eight hours as needed ibuprofen (ADVIL,MOTRIN) 800 MG tablet Take 1 (one) tablet (800 mg total) by mouth every 8 (eight) hours for 3 days, then every 8 hours as needed for pain or fever 30 tablet 0 05/10/2020 06/09/2020 Active Start: 05-09-2020 End: 05-11-2020 ibuprofen (ADVIL,MOTRIN) tab let 600 mg Start: 06-08-2019 End: 06-08-2019 ibuprofen (MOTRIN) tablet 40 0 mg iohexol (OMNIPAQUE) 350 MG/ML injection 75 mL (1 source) Start: 06-09-2019 End: 06-09-2019 iohexol (OMNIPAQUE) 350 MG/ML injection 75 mL 1 ml ketorolac tromethamine 30 mg/ml cartridge (2 sources) Nonsteroidal Anti-inflammatory Drug, Cyclooxygenase Inhibitor Start: 06-11-2019 End: 06-11-2019 ketorolac (TORADOL) injection 30 mg Start: 06-09-2019 End: 06-09-2019 ketorolac (TORADOL) injectio n 15 mg magnesium oxide 400 mg oral tablet (20 sources) Start: 12-30-2022 End: 12-15-2023 take 1 tablet by mouth twice daily magnesium oxide (MAG-OX) 400 mg (241.3 mg magnesium) tablet Take 1 (one) tablet (400 mg total) by mouth 2 (two) times a day . 0 12/30/2022 12/15/2023 Discontinued metroNIDAZOLE 500 mg oral tablet (2 sources) Nitroimidazole Antimicrobial Start: 09-20-2024 End: 01-11-2025 take 1 tablet by mouth twice daily Metronidazole 500 mg tablet Discontinued 500 mg PO TWICE A DAY 14 September 20, 2024 12:00am January 11, 2025 12:41pm Start: 12-19-2018 End: 12-26-2018 take 1 tablet by mouth twice daily metronidazole 500 MG Tab tablet Take 1 tablet by mouth 2 times daily for 7 days. 14 tablet 0 12/19/2018 12/26/2018 Active 1 ml morphine sulfate 4 mg/ml cartridge (1 source) Opioid Agonist Start: 06-11-2019 End: 06-11-2019 Morphine Sulfate (PF) injection 4 mg Start: 06-11-2019 End: 06-11-2019 Morphine Sulfate (PF) inject ion 4 mg naloxone (NARCAN) injection 0.1 mg (2 sources) Start: 12-31-2023 End: 01-02-2024 naloxone (NARCAN) injection 0.1 mg Start: 05-09-2020 End: 05-11-2020 naloxone (NARCAN) injection 0.1 mg naproxen 500 mg oral tablet (1 source) Nonsteroidal Anti-inflammatory Drug Start: 11-18-2020 End: 11-18-2020 take 1 tablet by mouth twice daily as needed naproxen 500 MG tablet Take 1 tablet by mouth 2 times daily as needed. 20 tablet 0 11/18/2020 11/18/2020 Discontinued NIFEdipine 30 mg osmotic 24 hr extended release oral tablet (6 sources) Dihydropyridine Calcium Channel Cristofer Start: 05-19-2023 End: 12-15-2023 take 1 tablet by mouth once daily NIFEdipine (PROCARDIA XL) 30 MG 24 hr tablet Take 1 (one) tablet (30 mg total) by mouth daily . 0 05/19/2023 12/15/2023 Discontinued nitrofurantoin, macrocrystals 25 mg / nitrofurantoin, monohydrate 75 mg oral capsule (2 sources) Nitrofuran Antibacterial Start: 01-19-2022 End: 01-19-2022 nitrofurantoin (macrocrystal-monoh ydrate) (MACROBID) capsule 100 mg Start: 01-19-2022 End: 01-22-2022 take 1 capsule by mouth twice daily at mealtime nitrofurantoin, macrocrystal-monohydrate , 100 MG capsule Take 1 capsule by mouth 2 times daily with meals for 3 days. Take w/ food/milk 6 capsule 0 01/19/2022 01/22/2022 Active 2 ml ondansetron 2 mg/ml injection (2 sources) Serotonin-3 Receptor Antagonist Start: 12-31-2023 End: 01-02-2024 take 4 mg intravenously every six hours as needed for nausea and vomiting ondansetron (ZOFRAN) injection 4 mg Start: 06-11-2019 End: 06-11-2019 ondansetron 4mg/2ml (ZOFRAN) injection 4 mg ondansetron (ZOFRAN-ODT) disintegrating tablet 4 mg (1 source) Start: 05-09-2020 End: 05-11-2020 take 1 tablet by mouth every six hours as needed ondansetron (ZOFRAN-ODT) disintegrating tablet 4 mg oxytocin (PITOCIN) bolus from bag 10,000 lakeisha-units (1 source) Start: 05-09-2020 End: 05-09-2020 oxytocin (PITOCIN) bolus from bag 10,000 lakeisha-units oxytocin in lactated ringers (PITOCIN) 20 unit/1,000 mL infusion (1 source) Start: 05-09-2020 End: 05-11-2020 oxytocin in lactated ringers (PITOCIN) 20 unit/1,000 mL infusion polyethylene glycol 3350 63347 mg powder for oral solution (1 source) Osmotic Laxative Start: 05-09-2020 End: 05-11-2020 17 g, Oral, Daily PRN, other, constipation, Starting Fri05/09/20 at 2119, Dissolved in 8 ounces of liquid. Hold for loose stools. 26-iron [id number] 29 mg iron- 1 mg-200 mg cap (2 sources) Start: 12-22-2020 End: 12-25-2020 take 1 capsule by mouth once daily 26-iron [id number] 29 mg iron- 1 mg-200 mg cap Indications: with fewer than 8 completed weeks gestation Take 1 capsule by mouth daily . 30 capsule 12 12/22/2020 12/25/2020 Discontinued Start: 12-22-2020 End: 01-21-2021 take 1 capsule by mouth once daily 26-iron [id number] 29 mg iron- 1 mg-200 mg cap Indications: with fewer than 8 completed weeks gestation Take 1 capsule by mouth daily . 30 capsule 12 12/22/2020 01/21/2021 Active Plus Vitamin/Mineral 27-1 MG Oral Tablet (20 sources) Start: 12-23-2022 take 1 tablet by mouth once daily Plus Vitamin/Mineral 27-1 MG Oral Tablet TAKE 1 TABLET DAILY. Quantity: 30 Refills: 10 Ordered: 23-Dec-2022 Cliff Aguirre MD Start : 23-Dec-2022 Active Start: 12-23-2022 take 1 tablet by inge th once daily Plus Vitamin/Mineral 27-1 MG Oral Tablet TAKE 1 TABLET DAILY. Quantity: 30 Refills: 10 Ordered: 23-Dec-2022 Cliff Aguirre DO Start : 23-Dec-2022 Active vit-iron fum-folic ac 28 mg iron- 800 mcg Tab (14 sources) Start: 12-22-2020 End: 12-25-2020 take 1 tablet by mouth once daily before mealtime vit-iron fum-folic ac 28 mg iron- 800 mcg Tab Take 1 tablet by mouth daily . 30 tablet 12 12/22/2020 12/25/2020 Discontinued Start: 12-22-2020 take 1 tablet by inge th once daily before mealtime vit-iron fum-folic ac 28 mg iron- 800 mcg Tab Take 1 tablet by mouth daily . 30 tablet 12 12/22/2020 Active Start: 09-23-2019 End: 12-22-2020 take 1 tablet by mouth once daily before mealtime vit-iron fum-folic ac 28 mg iron- 800 mcg Tab Take 1 tablet by mouth daily . 30 tablet 12 09/23/2019 12/22/2020 Discontinued Start: 09-23-2019 take 1 tablet by inge th once daily before mealtime vit-iron fum-folic ac 28 mg iron- 800 mcg Tab Take 1 tablet by mouth daily . 30 tablet 12 09/23/2019 Active Vitamin Plus Low Ir on 27 mg iron- 1 mg Tab (2 sources) Start: 12-22-2020 End: 01-30-2021 Vitamin Plus Low Ir on 27 mg iron- 1 mg Tab Start: 12-22-2020 Vitam in Plus Low Iron 27 mg iron- 1 mg Tab vitamin with Ca-Iron-FA ( Vitamin Plus Low Iron) 27-1 mg Tab (8 sources) Start: 01-30-2021 End: 02-18-2022 take 1 tablet by mouth once daily vitamin with Ca-Iron-FA ( Vitamin Plus Low Iron) 27-1 mg Tab Take 1 (one) tablet by mouth daily . 30 tablet 12 01/30/2021 02/18/2022 Discontinued (Patient's Request) Start: 01-30-2021 take 1 tablet by inge th once daily vitamin with Ca-Iron-FA ( Vitamin Plus Low Iron) 27-1 mg Tab Take 1 (one) tablet by mouth daily . 30 tablet 12 01/30/2021 Suspended Start: 01-30-2021 take 1 tablet by inge th once daily vitamin with Ca-Iron-FA ( Vitamin Plus Low Iron) 27-1 mg Tab Take 1 (one) tablet by mouth daily . 30 tablet 12 01/30/2021 Active vitamin with Ca-Iron-FA tablet 1 tablet (1 source) Start: 05-10-2020 End: 05-11-2020 take 1 tablet by mouth once daily 1 tablet, Oral, Daily, First dose on Fri05/10/20 at 0900, rho(d) immune globulin (RHOPHYLAC) injection 300 mcg (1 source) Start: 05-09-2020 End: 05-11-2020 inject 300 ug by intramuscular injection every twenty-four hours as needed rho(d) immune globulin (RHOPHYLAC) injection 300 mcg simethicone 80 mg chewable tablet (1 source) Start: 05-09-2020 End: 05-11-2020 80 mg, Oral, After meals as needed, flatulence, gas discomfort, Starting Fri05/09/20 at 2119, Sodium Chloride (3 sources) Start: 04-25-2021 End: 04-25-2021 sodium chloride (PF) (NS) flush 5 mL Start: 06-11-2019 End: 06-11-2019 sodium chloride 0.9% IV solu tion 1,000 mL Start: 06-09-2019 End: 06-09-2019 sodium chloride 0.9% IV solu tion 70 mL 1 ml terbutaline sulfate 1 m g/ml injection (1 source) Start: 04-25-2021 End: 04-25-2021 terbutaline (BRETHINE) injection 0.25 mg Start: 04-25-2021 End: 04-25-2021 terbutaline (BRETHINE) injec tion 0.25 mg terconazole 8 mg/ml vaginal cream (19 sources) Azole Antifungal Start: 12-23-2022 Terconazole 0 .8 % Vaginal Cream INSERT 1 APPLICATORFUL INTRAVAGINALLY AT BEDTIME NIGHTLY. Quantity: 1 Refills: 2 Ordered: 23-Dec-2022 Cliff Aguirre MD Start : 23-Dec-2022 Active traMADol hydrochloride 50 mg oral tablet (1 source) Opioid Agonist Start: 06-09-2019 End: 06-09-2019 traMADol (ULTRAM) tablet 1 Each Start: 06-09-2019 End: 06-09-2019 traMADol (ULTRAM) tablet 1 E ach zolpidem tartrate 5 mg oral tablet (1 source) gamma-Aminobutyric Acid-ergic Agonist Start: 05-09-2020 End: 05-11-2020 take 5 mg by mouth once daily as needed for sleep 5 mg, Oral, Nightly PRN, sleep, Starting Fri05/09/20 at 2119, Problems Active Problems Problem Classification Problem Date Documented Date Episodic/Chronic Administrative/socia l admission (20 sources) Multigravida; Translations: [Encounter for supervision of other normal , third trimester] Onset: 9 09-24-2019 Episodic Anal and rectal conditions (5 sources) Other specified diseases of anus and rectum; Translations: [Other specified disorders of rectum and anus] Onset: 4 04-27-2024 Episodic Bacterial infection; unspecified site (3 sources) Other specified bacterial agents as the cause of diseases classified elsewhere; Translations: [Chlamydial infection] Onset: 3 Episodic Cancer of other female genital organs (20 sources) Atypical squamous cells of undetermined significance on vaginal Papanicolaou smear; Translations: [Papanicolaou smear of vagina with atypical squamous cells of undetermined significance (ASC-US)] Episodic Cancer of thyroid (8 sources) Primary malignant neoplasm of thyroid gland; Translations: [Malignant neoplasm of thyroid gland] Onset: 5 01-13-2024 Chronic Cancer of thyroid (2 sources) Personal history of malignant neoplasm of thyroid; Translations: [History of malignant neoplasm of thyroid] Onset: 5 01-13-2025 Episodic Complications of surgical procedures or medical care (14 sources) Postoperative hypothyroidism; Translations: [Postprocedural hypothyroidism] Onset: 4 02-03-2024 Chronic Contraceptive and procreative management (5 sources) Patient encounter status; Translations: [Encounter for removal of intrauterine contraceptive device] Onset: 8 12-11-2017 Episodic Deficiency and other anemia (7 sources) Anemia; Translations: [Anemia, unspecified] Episodic Diseases of white blood cells (1 source) Familial hemophagocytic lymphohistiocytosis; 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)] Episodic Early or threatened labor (2 sources) Threatened premature labor - not delivered ; Translations: [False labor, unspecified] Onset: 1 Episodic Hemorrhage during ; abruptio placenta; placenta previa (11 sources) Low lying placenta; Translations: [Threatened miscarriage in first trimester] Onset: 0 01-03-2020 Episodic Hypertension complicating ; childbirth and the puerperium (1 source) Unspecified pre-eclampsia, complicating the puerperium; Translations: [Unspecified pre-eclampsia, complicating the puerperium] Onset: 3 Episodic Inflammatory diseases of female pelvic organs (4 sources) Acute vaginitis; Translations: [Bacterial vaginosis] Onset: 3 Episodic Malposition; malpresentation (8 sources) Breech presentation; Translations: [Breech presentation, single or unspecified fetus] Onset: 0 01-03-2020 Episodic Mycoses (1 source) Candidiasis of vagina Episodic Other circulatory disease (2 sources) Disorder of carotid artery; Translations: [Disorder of arteries and arterioles, unspecified] 08-19-2023 Chronic Other circulatory disease (2 sources) Disorder of arteries and arterioles, unspecified; Translations: [Disorder of arteries and arterioles, unspecified] Onset: 3 Chronic Other circulatory disease (1 source) Elevated blood-pressure reading, without diagnosis of hypertension; Translations: [Elevated blood-pressure reading, w/o diagnosis of htn] Onset: 3 Episodic Other circulatory disease (2 sources) Elevated blood-pressure reading without diagnosis of hypertension; Translations: [Elevated blood-pressure reading, without diagnosis of hypertension] 05-04-2025 Episodic Other complications of ; puerperium affecting management of mother (1 source) Anemia complicating childbirth; Translations: [Anemia complicating childbirth] Onset: 3 Chronic Other complications of ; puerperium affecting management of mother (14 sources) microcephaly; Translations: [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, unspecified as to episode of care or not applicable] Episodic Other complications of ; puerperium affecting management of mother (13 sources) Hereditary disease in family possibly affecting fetus; Translations: [Hereditary disease in family possibly affecting fetus, affecting management of mother, antepartum condition or complication] Episodic Other complications of ; puerperium affecting management of mother (1 source) Retained placenta without hemorrhage; Translations: [Retained placenta without hemorrhage] Onset: 3 Episodic Other complications of ; puerperium affecting management of mother (1 source) Delayed and secondary hemorrhage; Translations: [Delayed and secondary hemorrhage] Onset: 3 Episodic Other complications of ; puerperium affecting management of mother (1 source) Other complications of the puerperium, not elsewhere classified; Translations: [Oth complications of the puerperium, NEC] Onset: 3 Episodic Other complications of ; puerperium affecting management of mother (3 sources) Streptococcus B carrier state complicating childbirth; Translations: [Streptococcus B carrier state complicating childbirth] Onset: 3 Episodic Other ear and sense organ disorders (3 sources) Impacted cerumen in right ear; Translations: [Impacted cerumen, right ear] Episodic Other female genital disorders (20 sources) Vaginal discharge; Translations: [Leukorrhea, not specified as infective] 04-27-2024 Episodic Other female genital disorders (3 sources) Cyst of vagina; Translations: [Other specified noninflammatory disorders of vagina] Episodic Other female genital disorders (2 sources) Other specified noninflammatory disorders of vagina; Translations: [Other specified noninflammatory disorders of vagina] Onset: 4 Episodic Other inflammatory condition of skin (2 sources) Pruritus of vagina; Translations: [Itching in the vaginal area] Episodic Other lower respiratory disease (2 sources) Dyspnea; Translations: [Dyspnea, unspecified] 05-09-2025 Episodic Other nervous system disorders (20 sources) Choroid plexus cyst; Translations: [Cerebral cysts] Onset: 0 01-03-2020 Chronic Other nutritional; endocrine; and metabolic disorders (2 sources) Hypocalcemia; Translations: [Hypocalcemia] Onset: 5 04-19-2024 Chronic Other nutritional; endocrine; and metabolic disorders (1 source) Hypocalcemia; Translations: [Hypocalcemia] Onset: 5 Chronic Other upper respiratory infections (3 sources) Sinusitis; Translations: [Chronic sinusitis, unspecified] Onset: 4 02-10-2024 Chronic Residual codes; unclassified (1 source) Needs influenza immunization; Translations: [Need for influenza vaccination] Episodic Residual codes; unclassified (1 source) Gestation period, 8 weeks; Translations: [8 weeks gestation of ] Episodic Residual codes; unclassified (1 source) Gestation period, 13 weeks; Translations: [13 weeks gestation of ] Episodic Residual codes; unclassified (1 source) Gestation period, 25 weeks; Translations: [25 weeks gestation of ] Episodic Residual codes; unclassified (1 source) Requires a tetanus booster; Translations: [Need for tetanus booster] Episodic Residual codes; unclassified (1 source) Gestation period, 29 weeks; Translations: [29 weeks gestation of ] Episodic Residual codes; unclassified (1 source) Pain; Translations: [Pain due to dental caries] Episodic Residual codes; unclassified (17 sources) Gestation period, 19 weeks; Translations: [ state, incidental] Episodic Residual codes; unclassified (1 source) Gestation period, 23 weeks; Translations: [23 weeks gestation of ] Episodic Residual codes; unclassified (1 source) Gestation period, 27 weeks; Translations: [27 weeks gestation of ] Episodic Residual codes; unclassified (20 sources) Influenza vaccination declined; Translations: [Vaccination not carried out because of patient refusal] Episodic Residual codes; unclassified (16 sources) Gestation period, 17 weeks; Translations: [ state, incidental] Episodic Residual codes; unclassified (10 sources) Gestation period, 26 weeks; Translations: [ state, incidental] Episodic Residual codes; unclassified (1 source) 37 weeks gestation of ; Translations: [37 weeks gestation of ] Onset: 3 Episodic Residual codes; unclassified (1 source) 34 weeks gestation of ; Translations: [34 weeks gestation of ] Onset: 3 Episodic Residual codes; unclassified (1 source) Pain during labor and delivery; Translations: [Pain related to vaginal delivery] Residual codes; unclassified (1 source) Gestation period, 16 weeks; Translations: [16 weeks gestation of ] Screening and history of mental health and substance abuse codes (1 source) Ex-smoker; Translations: [Former smoker] Episodic Superficial injury; contusion (1 source) Abrasion of left forearm; Translations: [Abrasion of left forearm, initial encounter] Episodic Thyroid disorders (20 sources) Goiter; Translations: [Nontoxic goiter, unspecified] Onset: 3 08-19-2023 Chronic Unclassified (20 sources) Patient encounter status; Translations: [Encounter for IUD removal] Onset: 8 12-11-2017 Unclassified (2 sources) Cancer cervix screening status; Translations: [Screening for malignant neoplasm of cervix] Unclassified (2 sources) 39 WEEKS GESTATION OF 05-05-2023 Comment on above: 39 WEEKS GESTATION O F Unclassified (2 sources) Mat care (suspected) cnsl malf/damag fts, microcephaly, unsp; Translations: [Mat care (suspected) cnsl malf/damag fts, microcephaly, unsp] Onset: 3 Unclassified (2 sources) EYE PAIN, Onset: 3 Unclassified (1 source) Z97.5 - Presence of (intrauterine) contraceptive device Past or Other Problems Problem Classification Problem Date Documented Date Episodic/Chronic Abdominal pain (2 sources) Left upper quadrant pain; Translations: [Left upper quadrant pain] Episodic Deficiency and other anemia (20 sources) Normocytic anemia; Translations: [Anemia, unspecified] Onset: 02-18-2022 Resolved: 03-25-2022 Episodic Genitourinary symptoms and ill-defined conditions (20 sources) Urgent desire to urinate; Translations: [Dysuria] Onset: 02-19-2022 Episodic Immunizations and screening for infectious disease (20 sources) Rubella non-immune ; Translations: [Contact with and (suspected) exposure to human immunodeficiency virus [HIV]] Onset: 10-11-2019 10-11-2019 Episodic Malaise and fatigue (20 sources) Fatigue; Translations: [Other fatigue] Onset: 02-18-2022 Resolved: 03-25-2022 Episodic Mood disorders (6 sources) Mood disorders Onset: 02-18-2022 02-18-2022 Other complications of ; puerperium affecting management of mother (3 sources) Indication for care AND/OR intervention in labor AND/OR delivery; Translations: [Indication for care in labor and delivery, antepartum] Onset: 05-09-2020 05-09-2020 Episodic Other complications of (18 sources) High risk ; Translations: [High-risk in first trimester] Onset: 09-24-2019 09-24-2019 Episodic Other complications of (20 sources) Late entry into care; Translations: [Supervision of with insufficient care, unspecified trimester] Onset: 12-26-2020 12-26-2020 Episodic Other complications of (1 source) Abnormal ultrasonic finding on screening of mother; Translations: [Abnormal ultrasonic finding on screening of mother] Onset: 01-30-2023 Episodic Other ear and sense organ disorders (20 sources) Impacted cerumen; Translations: [Impacted cerumen, unspecified ear] Onset: 02-18-2022 02-18-2022 Episodic Other and delivery including normal (20 sources) Finding related to ; Translations: [Delivery normal] Onset: 05-09-2020 Resolved: 12-23-2022 05-09-2020 Episodic Comment on above: Added by Problem Lis t Migration; 2013-06-20; Moved to [facility] Oct 29 2013 9:11PM; 03/06/2012; MALE; 8LBS 7OZ05/09/2020; MALE; 6LBS 2OZ/; FEMALE; 6LB 9OZ; Other screening for suspected conditions (not mental disorders or infectious disease) (18 sources) Cancer cervix screening status; Translations: [Screening for malignant neoplasms of cervix] Onset: 12-30-2022 Episodic Polyhydramnios and other problems of amniotic cavity (3 sources) Premature rupture of membranes in full term with onset of labor within 24 hours of rupture; Translations: [Full-term premature rupture of membranes with onset of labor within 24 hours of rupture] Onset: 05-09-2020 05-09-2020 Episodic Residual codes; unclassified (20 sources) Gestation period, 37 weeks; Translations: [37 weeks gestation of ] Onset: 05-09-2020 05-09-2020 Episodic Residual codes; unclassified (1 source) Gestation period, 20 weeks; Translations: [20 weeks gestation of ] Episodic Residual codes; unclassified (1 source) 19 weeks gestation of ; Translations: [19 weeks gestation of ] Onset: 01-06-2023 Episodic Residual codes; unclassified (1 source) 17 weeks gestation of ; Translations: [17 weeks gestation of ] Onset: 01-06-2023 Episodic Residual codes; unclassified (1 source) Family history of other specified conditions; Translations: [Family history of other specified conditions] Onset: 01-30-2023 Episodic Residual codes; unclassified (1 source) 24 weeks gestation of ; Translations: [24 weeks gestation of ] Onset: 01-30-2023 Episodic Unclassified (1 source) POSSIBLE SROM 05-05-2023 Comment on above: POSSIBLE SROM Urinary tract infections (20 sources) Acute cystitis; Translations: [Lower urinary tract infectious disease] Onset: 09-19-2023 Episodic Results Test Name Value Interpretation Reference Range Facility ALBUMINon 05-04-2025 Albumin [Mass/Vol] 4.1 g/dL Normal 3.6-5.1 [facility] Comment on above: Performed By: #### 2 23, 718, 306, 622, 78730, 8837 #### [facility] [address], [address] [place] [address] Lime Filter Operator: Martin Velázquez MD CALCIUM, IONIZEDon 5 CALCIUM, IONIZED 5.0 mg/dL Normal 4.7-5.5 [facility] Comment on above: Performed By: #### 2 23, 718, 306, 622, 13747, 8837 #### [facility] [address], [address] [place] [address] Lime Filter Operator: Martin Velázquez MD CBC-Complete Blood Cnt No Di ff 05-04-2025 Erythrocyte distribution width (RBC) [Ratio] 12.6 % Normal 11.6-14.6 [facility] Comment on above: Performed By: #### L 100.0500 #### [facility] [address] [place], [address] Hematocrit (Bld) [Volume fraction] 36.5 % Low 37-47 [facility] Comment on above: Performed By: #### L 100.0500 #### [facility] [address] [place], [address] Hemoglobin (Bld) [Mass/Vol] 12.6 g/dL Normal 12.0-15.0 [facility] Comment on above: Performed By: #### L 100.0500 #### [facility] [address] [place], [address] MCH (RBC) [Entitic mass] 33.0 pg High 27.0-32.0 [facility] Comment on above: Performed By: #### L 100.0500 #### [facility] [address] [place], [address] MCHC (RBC) [Mass/Vol] 34.5 g/dL Normal 32-36 [facility] Comment on above: Performed By: #### L 100.0500 #### [facility] [address] [place], [address] MCV (RBC) [Entitic vol] 95.5 fL Normal 81-99 [facility] Comment on above: Performed By: #### L 100.0500 #### [facility] [address] [place], [address] Platelet mean volume (Bld) [Entitic vol] 10.7 fL Normal 6.2-12.0 [facility] Comment on above: Performed By: #### L 100.0500 #### [facility] [address] [place], [address] Platelets (Bld) [#/Vol] 268 10*3/uL Normal 150-450 [facility] Comment on above: Performed By: #### L 100.0500 #### [facility] [address] [place], [address] RBC (Bld) [#/Vol] 3.82 10*6/uL Low 4.2-5.4 [facility] Comment on above: Performed By: #### L 100.0500 #### [facility] [address] [place], [address] RDW SD 43.4 fl Normal 35.1-43.9 [facility] Comment on above: Performed By: #### L 100.0500 #### [facility] [address] [place], [address] WBC (Bld) [#/Vol] 7.1 10*3/uL Normal 4.4-11.0 [facility] Comment on above: Performed By: #### L 100.0500 #### [facility] [address] [place], [address] Chest PA and Lateralon 05-04 Chest PA and Lateral [facility] [address] [place] [address] Chest PA and Lateral MR#: [id number] Acct: [id number] Name: TNOI JACOBSON Rep #: [id number] : 1990 F 34 From: Dawood Stewart MD PCP: Dr. Radha Morgan MD Status: DEP ER Study: Chest PA and Lateral Date of Exam: 05/04/25 Exam# [id number] Ordering Dr: Bjorn Hurd MD PROCEDURE: CHEST PA AND LATERAL 05/04/2025 REASON FOR EXAM: SHORTNESS OF BREATH TECHNIQUE: Frontal and lateral views of the chest. COMPARISON: None. FINDINGS: The lungs are clear. The heart borders mediastinum and pulmonary vascular pattern are normal. The upper abdominal bowel gas pattern is normal. There are no bony abnormalities. RAD/Chest PA and Lateral IMPRESSION: No evidence of acute cardiopulmonary pathology. Reading Location: [id number] CC: Dr. Radha Morgan MD; Dr. Bjorn Hurd MD Hematology Technician: Signed Normal [facility] Emergency Department Summary on 05-04-2025 Emergency Department Summary [facility] Medical Records Department [address] [place] [address] Emergency Department Summary 05/04/25 MR#: [id number] Acct: [id number] Name: TONI JACOBSON Rep #: [id number] : 1990 34 From: Bjorn Hurd MD PCP: Dr. Radha Morgan MD Status:REG ER Location: ED HPI History of Present Illness Chief Complaint: Shortness of Breath Detail of Chief Complaint: 2 days ago developed shortness of breath Informant: patient Onset/Context/Timing Onset: Days Context: - (Patient states she developed shortness of breath.) Timing: Continuous Quality: Negative for Dyspnea on exertion, Orthopnea, PND or Wheezing Current Severity: Mild Maximum Severity: Mild Worsened by: Nothing Relieved by: Nothing Associated Symptoms Negative for cough, rhinorrhea, post nasal drip, ear pain, fever, sore throat, subjective, chills or sweats Chest Pain: Positive for None Narrative Narrative: Patient is a 34-year-old woman. She has surgically induced hypothyroidism. She had a thyroidectomy for goiter. Apparently there was a small neoplastic lesion noted. She presently has no active cancer. She is not on hormonal therapy. She has no risk factors for VTE. She has no history of VTE. She denies leg pain, swelling discoloration. Patient states she is short of breath. She is short of breath at rest. She denies fever, chills night sweats. She denies visual, ocular auditory symptoms. She denies rhinorrhea, congestion, postnasal drainage. She states she has mild throat discomfort. She has no dyspnea. She denies cough. She denies pleuritic chest pain. She denies pressure, tightness heaviness. She has no symptoms with exertion. She denies GI symptoms. PE Risk Factors: Negative for Cancer, OCP + Smoking + > 35, Prior DVT or PE, Recent immobilization, Recent surgery or Recent travel Prior similar symptoms: No Recent Illness/Hospitalization: No PFSH PFSH Medical History Thyroid cancer Goiter Home Medications ???Medication ???Instructions ???Recorded ???Last Taken ???Type levothyroxine 112 mcg capsule 112 mcg PO QDAY 01/11/25 Unknown H istory hydrocortisone acetate 25 mg 25 mg UT QHS #12 ea 01/13/25 Unkno wn Rx rectal suppository (Anusol-HC) psyllium husk 3.4 gram/5.4 gram 1 tbsp PO QDAY #660 grams 01/13/25 Unknown Rx oral powder (Metamucil) amoxicillin 500 mg tablet 500 mg PO TID #30 tabs 02/21/25 Un known Rx Allergy/AdvReac Type Severity Reaction Status Date / Time No Known Allergies Allergy Verified 05/04/25 09:16 Family History Grandmother Anemia Arthritis Thyroid disorder Mother Arthritis Thyroid disorder Aunt Arthritis Breast cancer Daughter Asthma Aunt Colon cancer Aunt Thyroid disorder Surgical History H/O thyroidectomy Social History household members: family current occupational status: employed 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[employer] - [employer] 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 [employer] Smoking Status: Never smoker second hand exposure: No alcohol intake: never substance use type: does not use what type of physical activity do you participate in: none do you feel safe at home: Yes ROS ROS ED Constitutional Constitutional ED: Denies chills, fever(s), sweats or weight loss ENT ENT ED: Reports sore throat; Denies ear pain or rhinorrhea Cardiovascular Cardiovascular: Denies chest pain, orthopnea, palpitations, paroxysmal nocturnal dyspnea or racing heartbeat Respiratory/Chest Respiratory/Chest: Reports dyspnea; Denies cough, dyspnea on exertion, orthopnea or paroxysmal nocturnal dyspnea Gastrointestinal Gastrointestinal: Denies abdominal pain, diarrhea, melena, nausea or vomiting Genitourinary Genitourinary ED: Reports other Details: She denies heavy menstrual bleeding. ; Denies dysuria, hematuria or urinary frequency Musculoskeletal Musculoskeletal: Denies arthralgias or myalgias Integumentary Denies rash Neurologic Neurologic: Denies headache(s), paresthesias or weakness Hematologic/Lymphatic Hematologic/Lymphatic: Denies easy bleeding or easy bruising EXAM Physical Exam Const Vital Signs: 05/04/25 09:17 Temperature 97.9 F Temperature Source Temporal Pulse Rate 83 Respiratory Rate 16 Blood Pressure 150/102 H Blood Pressure Mean 118 Pulse Ox 98 Oxygen Delivery Method Room Air Positive well nourished and well developed General Appearance ED: well developed and NAD; Negative for pallor HEENT Reports moist mucous membranes HEENT Narrative: Head is atraumatic normocephalic. Ears normal. Nares patent. Posterior pharynx is normal. Eyes PERRL and EOMs intact bilaterally General Eye ED (more content not included)... Normal [facility] Erythrocyte distribution wid th ratioOrdered By: Bjorn Hurd on 05-04-2025 Erythrocyte distribution width (RBC) [Ratio] 12.6 % 11.6-14.6 [facility] Erythrocyte distribution wid th standard deviationOrdered By: Bjorn Hurd on 05-04-2025 Erythrocyte distribution width (RBC) [Ratio] 43.4 fl 35.1-43.9 [facility] Hematocrit Auto (Bld) [Volum e fraction]Ordered By: Bjorn Hurd on 05-04-2025 Hematocrit (Bld) [Volume fraction] 36.5 % Low 37-47 [facility] Hemoglobin measurementOrdere d By: Bjorn Hurd on 05-04-2025 Hemoglobin (Bld) [Mass/Vol] 12.6 g/dL 12.0-15.0 [facility] MAGNESIUMon 05-04-2025 Magnesium [Mass/Vol] 2.0 mg/dL Normal 1.5-2.5 [facility] Comment on above: Performed By: #### 2 23, 718, 306, 622, [id number], 8855 #### [facility] [place] [address] Lime Filter Operator: Martin Velázquez MD MCV (mean corpuscular volume ) determinationOrdered By: Bjorncarlos Hurd on 05-04-2025 MCV (RBC) [Entitic vol] 95.5 fL 81-99 [facility] Mean corpuscular hemoglobin (MCH) determinationOrdered By: Bjorncarlos Hurd on 05-04-2025 MCH (RBC) [Entitic mass] 33.0 pg High 27.0-32.0 [facility] Mean corpuscular hemoglobin concentration (MCHC) determinationOrdered By: Bjorncarlos Hurd on 05-04-2025 MCHC (RBC) [Mass/Vol] 34.5 g/dL 32-36 [facility] Mean platelet volume determi nationOrdered By: Bjorn Hurd on 05-04-2025 Platelet mean volume (Bld) [Entitic vol] 10.7 fL 6.2-12.0 [facility] PHOSPHATE ( PHOSPHORUS)on 05-04-2025 Phosphate [Mass/Vol] 3.0 mg/dL Normal 2.5-4.5 [facility] t [facility] Comment on above: Performed By: #### 2 23, 718, 306, 622, 07702, 8837 #### [facility] [place] [address] Lime Filter Operator: Martin Velázquez MD PTH, INTACT AND CALCIUMon Calcium [Mass/Vol] 8.7 mg/dL Normal 8.6-10.2 [facility] Comment on above: Performed By: #### 2 23, 718, 306, 622, 65369, 8837 #### [facility] [address], [address] [place] [address] Lime Filter Operator: Martin Velázquez MD PARATHYROID HORMONE, INTACT 71 pg/mL Normal 16-77 [facility] Comment on above: Result Comment: Interpretive Guide Intact PTH Calcium ------- Normal Parathyroid Normal Normal Hypoparathyroidism Low or Low Normal Low Hyperparathyroidism Primary Normal or High High Secondary High Normal or Low Tertiary High High Non-Parathyroid Hypercalcemia Low or Low Normal High Performed By: #### 2 23, 718, 306, 622, 92665, 8837 #### [facility] [address], [address] [place] [address] Lime Filter Operator: Martin Velázquez MD Platelet countOrdered By: Alek Hurd on 05-04-2025 Platelets (Bld) [#/Vol] 268 10*3/uL 150-450 [facility] RBC Auto (Bld) [#/Vol]Ordere d By: Bjorn Hurd on 05-04-2025 RBC (Bld) [#/Vol] 3.82 10*6/uL Low 4.2-5.4 [facility] VITAMIN D,25-OH,TOTAL,IAon 0 05-04-2025 VITAMIN D,25-OH,TOTAL,IA 13 ng/mL Low 30-100 [facility] Comment on above: Result Comment: Magalis min D Status 25-OH Vitamin D: Deficiency: <20 ng/mL Insufficiency: 20 - 29 ng/mL Optimal: > or = 30 ng/mL For 25-OH Vitamin D testing on patients on D2-supplementation and patients for whom quantitation of D2 and D3 fractions is required, the QuestAssureD(TM) 25-OH VIT D, (D2,D3), LC/MS/MS is recommended: order code 51086 (patients >2yrs). See Note 1 Note 1 For additional information, please refer to http://[email or web address].Fuzz/faq/SWF605 (This link is being provided for informational/ educational purposes only.) Performed By: #### 2 23, 718, 306, 622, 80749, 8837 #### [facility] [address], [address] [place] [address] Lime Filter Operator: Martin Velázquez MD White blood cell (WBC) count Ordered By: Bjorn Hurd on 05-04-2025 WBC (Bld) [#/Vol] 7.1 10*3/uL 4.4-11.0 [facility] Urgent Care Visit Reporton 0 02-21-2025 Urgent Care Visit Report [facility] [address], [address] [place] [address] OFFICE VISIT Date of Service: 02/21/25 MR#: [id number] Acct: [id number] Name: TONI JACOBSON Rep #: [id number] : 1990 Provider: KELI Valverde Age/Sex: 34/F Location: [facility] Status: Signed Intake Vital Signs 01/13/25 08:46 02/21/25 16:46 Height 5 ft 3 in 5 ft 3 in Weight: 155 lb 153 lb 8 oz BMI 27.4 27.1 BP 128/72 H 122/60 H Blood Pressure Location Lt brachial Rt brachial Position Sitting Sitting Respiration 16 16 Pulse 78 69 Pulse Source Monitor NIBP Temp 96.6 F L 98.9 F Temp Source Temporal Oral Pulse Oximetry (%) 99 99 Oxygen Delivery Method room air room air Intake Visit Reasons: CONCERN FOR SINUS INFECTION Chief Complaint: face pain, mucus, drainage, ALLEN [employer] Sales Representative Required: No Is patient in pain?: Yes Allergies No Known Allergies Allergy (Verified 02/21/25 16:46) Medications ???Medication ???Instructions ???Recorded ???Confirmed ???Type levothyroxine 112 mcg capsule 112 mcg PO QDAY 01/11/25 02/21/25 History hydrocortisone acetate 25 mg 25 mg UT QHS #12 ea 01/13/2501/13 Rx rectal suppository (Anusol-HC) psyllium husk 3.4 gram/5.4 gram 1 tbsp PO QDAY #660 grams 01/13/25 01/13/25 Rx oral powder (Metamucil) amoxicillin 500 mg tablet 500 mg PO TID #30 tabs 02/21/25 Rx Is last menstrual period known: No Post menopausal: No Patient : No Have you fallen in the past year?: No Nurse's Note: face pain, mucus, drainage, ALLEN for over 1 week. denies fever. concern for sinus infection PFSH Medical History Thyroid cancer Goiter Surgical History H/O thyroidectomy Family History (Updated 01/13/25 @ 08:[address] Radha Morgan MD) Grandmother Anemia Arthritis Thyroid disorder Mother Arthritis Thyroid disorder Aunt Arthritis Breast cancer Daughter Asthma Aunt Colon cancer Aunt Thyroid disorder Social History (Updated 01/13/25 @ 08:[address] Radha Morgan MD) household members: family current occupational status: employed 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 - [employer] home [employer] Smoking Status: Never smoker second hand exposure: No alcohol intake: never substance use type: does not use what type of physical activity do you participate in: none do you feel safe at home: Yes HPI HPI Chief Complaint: face pain, mucus, drainage, ALLEN Details: TONI JACOBSON, is a 34 F who presents to the office today for [facility] evaluation at the [facility] for approximately 7-10-day history of progressively worsening forehead pressure/congestion with purulent postnasal drip and sore throat. No complaints of fever, chills, myalgias, fatigue, runny nose, or nausea/vomiting/diarrhea . No complaints of chest pain/shortness of breath/dyspnea on exertion. No close contacts with similar complaints. No other associated symptoms and no other alleviating/aggravating factors. ROS Const Constitutional: No other (as above) Exam Const General: cooperative, healthy appearing and no acute distress Nutritional Appearance: average body habitus Orientation: alert, awake and oriented x3 HENMT Head: normal to inspection Ears: hearing grossly normal bilaterally, external ears normal, TM's normal bilaterally and EAC's normal Nose: external nose normal, nares normal, septum normal and no nasal discharge Face and sinus: normal facial exam, sinuses tender (bilateral frontal) and face symmetric Mouth: oral mucosae normal, lip normal, tongue normal and oropharynx normal Throat: posterior oropharynx normal, tonsils normal, uvula midline and postnasal drainage (scant amount purulent) Eyes General: appearance normal, both eyes and all related structures Neck Neck: normal visual inspection, full ROM, no meningeal signs, supple and lymphadenopathy (Bilateral anterior cervical lymph node swelling/tender to palpation) Neck mass: No Thyroid: thyroid normal Chest Chest palpation inspection: normal inspection of the chest Resp Effort Inspection: normal respiratory effort and able to speak in complete sentences Auscultation: Bilateral: Clear to Auscultation Cardio Palpation: normal PMI Rate: regular rate Rhythm: regular rhythm Heart Sounds: S1 normal, S2 normal, no gallops, no murmurs and no rubs Pulses: radial pulses present GI Inspection: normal to inspection Skin General: no rashes or lesions noted Neuro General: patient alert, patient awake and patient oriented x3 Cognition: normal cognition Speech: speech normal Psych Appearance: grossly normal Mental Status: mental status grossly normal Mood: congruent mood Affect: normal affect Speech and Movement: spe (more content not included)... Normal [facility] Absolute lymphocyte countOrd ered By: Radha Morgan on 01-13-2025 Lymphocytes Auto (Unsp spec) [#/Vol] 2.56 10*3/uL 0.83-4.51 [facility] Absolute neutrophil countOrd ered By: Radha Morgan on 01-13-2025 Neutrophils (Bld) [#/Vol] 3.0 10*3/uL 2.0-7.7 [facility] Albumin to globulin ratioOrd ered By: Radha Morgan on 01-13-2025 Albumin/Globulin [Mass ratio] 0.8 {ratio} Low 0.9-2.4 [facility] Automated lymphocyte count a s percentage of total leukocytesOrdered By: Radha Morgan on 01-13-2025 Lymphocytes/100 WBC Auto (Unsp spec) 40.5 % 19-41 [facility] Basophil percentageOrdered B y: Radha Morgan on 01-13-2025 Basophils/100 WBC (Bld) 0.9 % 0-1 [facility] Bilirubin, totalOrdered By: Radha Morgan on 01-13-2025 Bilirubin [Mass/Vol] 0.70 mg/dL 0.20-1.00 [facility] Comment on above: For patients on eltr ombopag therapy, use of Dimension Delta TBIL is not recommended. Blood urea nitrogen (BUN)/cr eatinine ratioOrdered By: Radha Morgan on 01-13-2025 Urea nitrogen/Creatinine [Mass ratio] 15.5 mg/mg 10-20 [facility] CBC W/Diff, Automatedon 01-01 Absolute Lymph 2.56 X10 3/uL Normal 0.83-4.51 [facility] Comment on above: Performed By: #### L 100.0100, L500.4050 #### [facility] [address] [place], [address] Absolute Neut 3.0 X10 3/uL Normal 2.0-7.7 [facility] Comment on above: Performed By: #### L 100.0100, L500.4050 #### [facility] [address] [place], [address] Basophils/100 WBC (Bld) 0.9 % Normal 0-1 [facility] Comment on above: Performed By: #### L 100.0100, L500.4050 #### [facility] [address] [place], [address] Eosinophils/100 WBC (Bld) 1.7 % Normal 0-5 [facility] Comment on above: Performed By: #### L 100.0100, L500.4050 #### [facility] [address] [place], [address] Erythrocyte distribution width (RBC) [Ratio] 12.5 % Normal 11.6-14.6 [facility] Comment on above: Performed By: #### L 100.0100, L500.4050 #### [facility] [address] [place], [address] Hematocrit (Bld) [Volume fraction] 40.2 % Normal 37-47 [facility] Comment on above: Performed By: #### L 100.0100, L500.4050 #### [facility] [address] [place], [address] Hemoglobin (Bld) [Mass/Vol] 13.1 g/dL Normal 12.0-15.0 [facility] Comment on above: Performed By: #### L 100.0100, L500.4050 #### [facility] [address] [place], [address] IG% 0.200 Normal 0.0-0.9 [facility] Comment on above: Result Comment: IG% - Immature Granulocytes (promyelocytes, myelocytes and metamyelocytes) > 1% indicates that a LEFT SHIFT is Present. Performed By: #### L 100.0100, L500.4050 #### [facility] [address] [place], [address] Lymphocytes/100 WBC (Bld) 40.5 % Normal 19-41 [facility] Comment on above: Performed By: #### L 100.0100, L500.4050 #### [facility] [address] [place], [address] MCH (RBC) [Entitic mass] 31.4 pg Normal 27.0-32.0 [facility] Comment on above: Performed By: #### L 100.0100, [id number] #### [facility] [address] [place], [address] MCHC (RBC) [Mass/Vol] 32.6 g/dL Normal 32-36 [facility] Comment on above: Performed By: #### L 100.0100, L500.4050 #### [facility] [address] [place], [address] MCV (RBC) [Entitic vol] 96.4 fL Normal 81-99 [facility] Comment on above: Performed By: #### L 100.0100, L500.4050 #### [facility] [address] [place], [address] Monocytes/100 WBC (Bld) 9.8 % Normal 0-10 [facility] Comment on above: Performed By: #### L 100.0100, L500.4050 #### [facility] [address] [place], [address] Neutrophils/100 WBC (Bld) 46.9 % Low 47-70 [facility] Comment on above: Performed By: #### L 100.0100, L500.4050 #### [facility] [address] [place], [address] Nucleated RBC (Bld) [#/Vol] 0 10*3/uL Normal 0-5 [facility] Comment on above: Performed By: #### L 100.0100, L500.4050 #### [facility] [address] [place], [address] Platelet mean volume (Bld) [Entitic vol] 10.4 fL Normal 6.2-12.0 [facility] Comment on above: Performed By: #### L 100.0100, L500.4050 #### [facility] [address] [place], [address] Platelets (Bld) [#/Vol] 238 10*3/uL Normal 150-450 [facility] Comment on above: Performed By: #### L 100.0100, L500.4050 #### [facility] [address] [place], [address] RBC (Bld) [#/Vol] 4.17 10*6/uL Low 4.2-5.4 [facility] Comment on above: Performed By: #### L 100.0100, L500.4050 #### [facility] [address] [place], [address] RDW SD 44.3 fl High 35.1-43.9 [facility] Comment on above: Performed By: #### L 100.0100, L500.4050 #### [facility] [address] [place], [address] WBC (Bld) [#/Vol] 6.3 10*3/uL Normal 4.4-11.0 [facility] Comment on above: Performed By: #### L 100.0100, L500.4050 #### [facility] [address] [place], [address] Carbon dioxide measurementOr dered By: Radha Morgan on 01-13-2025 CO2 [Moles/Vol] 23.0 mmol/L 21.0-32.0 [facility] Chloride measurementOrdered By: Radha Morgan on 01-13-2025 Chloride [Moles/Vol] 107 mmol/L 98-107 [facility] Comprehensive Metabolic Prof ilon 01-13-2025 Albumin [Mass/Vol] 3.7 g/dL Normal 3.2-5.0 [facility] Comment on above: Performed By: #### L 100.0100, L500.4050 #### [facility] [address] [place], [address] Albumin/Globulin [Mass ratio] 0.8 {ratio} Low 0.9-2.4 [facility] Comment on above: Performed By: #### L 100.0100, L500.4050 #### [facility] [address] [place], [address] ALK P 56 U/L Normal 45-117 [facility] Comment on above: Performed By: #### L 100.0100, L500.4050 #### [facility] [address] [place], [address] ALT [Catalytic activity/Vol] 19 U/L Normal 13-56 [facility] Comment on above: Performed By: #### L 100.0100, L500.4050 #### [facility] [address] [place], [address] AST [Catalytic activity/Vol] 22 U/L Normal 15-37 [facility] Comment on above: Performed By: #### L 100.0100, L500.4050 #### [facility] [address] [place], [address] Bilirubin [Mass/Vol] 0.70 mg/dL Normal 0.20-1.00 [facility] Comment on above: Result Comment: For patients on eltrombopag therapy, use of Dimension Delta TBIL is not recommended. Performed By: #### L 100.0100, L500.4050 #### [facility] [address] [place], [address] BUN/CRE 15.5 RATIO Normal 10-20 [facility] Comment on above: Performed By: #### L 100.0100, L500.4050 #### [facility] [address] [place], [address] CA,Total 8.9 mg/dL Normal 8.5-10.1 [facility] Comment on above: Performed By: #### L 100.0100, L500.4050 #### [facility] [address] [place], [address] Chloride [Moles/Vol] 107 mmol/L Normal 98-107 [facility] Comment on above: Performed By: #### L 100.0100, L500.4050 #### [facility] [address] [place], [address] CO2 [Moles/Vol] 23.0 mmol/L Normal 21.0-32.0 [facility] Comment on above: Performed By: #### L 100.0100, L500.4050 #### [facility] [address] [place], [address] Creatinine [Mass/Vol] 0.71 mg/dL Normal 0.55-1.02 [facility] Comment on above: Result Comment: The validity of the calculated GFR GFRAA in patients over 70 years has not been determined. Clinical correlation is essential. Performed By: #### L 100.0100, L500.4050 #### [facility] [address] [place], [address] EST GFR - AA 123 mL/min Normal >60 [facility] Comment on above: Result Comment: Afri can Argentine GFR Calc Performed By: #### L 100.0100, L500.4050 #### [facility] [address] [place], [address] GAP 7 Normal 5-15 [facility] Comment on above: Performed By: #### L 100.0100, L500.4050 #### [facility] [address] [place], [address] GFR/1.73 sq M.predicted among non-blacks MDRD (S/P/Bld) [Vol rate/Area] 101 mL/min/{1.73_m2} Normal >60 [facility] Comment on above: Result Comment: Non- GFR Calc Performed By: #### L 100.0100, L500.4050 #### [facility] [address] [place], [address] Globulin (S) [Mass/Vol] 4.8 g/dL High 2.2-4.2 [facility] Comment on above: Performed By: #### L 100.0100, L500.4050 #### [facility] [address] [place], [address] Glucose [Mass/Vol] 77 mg/dL Normal 74-106 [facility] Comment on above: Performed By: #### L 100.0100, L500.4050 #### [facility] [address] [place], [address] Potassium [Moles/Vol] 4.0 mmol/L Normal 3.5-5.1 [facility] Comment on above: Performed By: #### L 100.0100, L500.4050 #### [facility] [address] [place], [address] Sodium [Moles/Vol] 137 mmol/L Normal 136-145 [facility] Comment on above: Performed By: #### L 100.0100, L500.4050 #### [facility] [address] [place], [address] T PROT 8.5 g/dL High 6.4-8.2 [facility] Comment on above: Performed By: #### L 100.0100, L500.4050 #### [facility] [address] [place], [address] Urea nitrogen [Mass/Vol] 11 mg/dL Normal 7-18 [facility] Comment on above: Performed By: #### L 100.0100, L500.4050 #### [facility] [address] [place], [address] Eosinophil percentageOrdered By: Radha Morgan on 01-13-2025 Eosinophils/100 WBC (Bld) 1.7 % 0-5 [facility] Erythrocyte distribution wid th ratioOrdered By: Radha Morgan on 01-13-2025 Erythrocyte distribution width (RBC) [Ratio] 12.5 % 11.6-14.6 [facility] Erythrocyte distribution wid th standard deviationOrdered By: Radha Morgan on 01-13-2025 Erythrocyte distribution width (RBC) [Ratio] 44.3 fl High 35.1-43.9 [facility] Glomerular filtration rate ( GFR) estimationOrdered By: Radha Morgan on 01-13-2025 GFR/1.73 sq M.predicted among non-blacks MDRD (S/P/Bld) [Vol rate/Area] 101 mL/min/{1.73_m2} >60 [facility] Comment on above: Non- GFR Calc Glucose measurementOrdered B y: Radha Morgan on 01-13-2025 Glucose [Mass/Vol] 77 mg/dL 74-106 [facility] Hematocrit Auto (Bld) [Volum e fraction]Ordered By: Radha Morgan on 01-13-2025 Hematocrit (Bld) [Volume fraction] 40.2 % 37-47 [facility] Hemoglobin measurementOrdere d By: Radha Morgan on 01-13-2025 Hemoglobin (Bld) [Mass/Vol] 13.1 g/dL 12.0-15.0 [facility] Immature granulocytes/100 WB C Auto (Bld)Ordered By: Radha Morgan on 01-13-2025 Immature granulocytes/100 WBC (Bld) 0.200 % 0.0-0.9 [facility] Comment on above: IG% - Immature Granu locytes (promyelocytes, myelocytes and metamyelocytes) > 1% indicates that a LEFT SHIFT is Present. Laboratory - Chemistry and C hemistry - challengeOrdered By: Rdaha Morgan on 01-13-2025 AST [Catalytic activity/Vol] 22 U/L 15-37 [facility] MCV (mean corpuscular volume ) determinationOrdered By: Radha Morgan on 01-13-2025 MCV (RBC) [Entitic vol] 96.4 fL 81-99 [facility] Mean corpuscular hemoglobin (MCH) determinationOrdered By: Radha Morgan on 01-13-2025 MCH (RBC) [Entitic mass] 31.4 pg 27.0-32.0 [facility] Mean corpuscular hemoglobin concentration (MCHC) determinationOrdered By: Radha Morgan on 01-13-2025 MCHC (RBC) [Mass/Vol] 32.6 g/dL 32-36 [facility] Mean platelet volume determi nationOrdered By: Radha Morgan on 01-13-2025 Platelet mean volume (Bld) [Entitic vol] 10.4 fL 6.2-12.0 [facility] Monocyte percentageOrdered B y: Radha Morgan on 01-13-2025 Monocytes/100 WBC (Bld) 9.8 % 0-10 [facility] Neutrophil percentageOrdered By: Radha Morgan on 01-13-2025 Neutrophils/100 WBC (Bld) 46.9 % Low 47-70 [facility] Nucleated red blood cell per centageOrdered By: Radha Morgan on 01-13-2025 Nucleated RBC/100 WBC (Bld) [Ratio] 0 % 0-5 [facility] Platelet countOrdered By: Jacob Morgan on 01-13-2025 Platelets (Bld) [#/Vol] 238 10*3/uL 150-450 [facility] Potassium measurementOrdered By: Radha Morgan on 01-13-2025 Potassium [Moles/Vol] 4.0 mmol/L 3.5-5.1 [facility] RBC Auto (Bld) [#/Vol]Ordere d By: Radha Morgan on 01-13-2025 RBC (Bld) [#/Vol] 4.17 10*6/uL Low 4.2-5.4 [facility] Serum anion gap measurementO rdered By: Radha Morgan on 01-13-2025 Anion gap [Moles/Vol] 7 mmol/L 5-15 [facility] Serum globulin measurementOr dered By: Radha Morgan on 01-13-2025 Globulin (S) [Mass/Vol] 4.8 g/dL High 2.2-4.2 [facility] Serum or plasma alanine johnson otransferase (ALT) measurementOrdered By: Radha Morgan on 01-13-2025 ALT [Catalytic activity/Vol] 19 U/L 13-56 [facility] Serum or plasma albumin leonel urement (mass/volume)Ordered By: Radha Morgan on 01-13-2025 Albumin [Mass/Vol] 3.7 g/dL 3.2-5.0 [facility] Serum or plasma alkaline megan sphatase measurementOrdered By: Radha Morgan on 01-13-2025 ALP [Catalytic activity/Vol] 56 U/L 45-117 [facility] Serum or plasma calcium leonel urement (mass/volume)Ordered By: Radha Morgan on 01-13-2025 Calcium [Mass/Vol] 8.9 mg/dL 8.5-10.1 [facility] Serum or plasma creatinine m easurement (mass/volume)Ordered By: Radha Morgan on 01-13-2025 Creatinine [Mass/Vol] 0.71 mg/dL 0.55-1.02 [facility] Comment on above: The validity of the calculated GFR & GFRAA in patients over 70 years has not been determined. Clinical correlation is essential. Serum or plasma urea nitroge n measurement (mass/volume)Ordered By: Radha Morgan on 01-13-2025 Urea nitrogen [Mass/Vol] 11 mg/dL 7-18 [facility] Sodium levelOrdered By: Jacquelyn Morgan on 01-13-2025 Sodium [Moles/Vol] 137 mmol/L 136-145 [facility] Total proteinOrdered By: Biju Morgan on 01-13-2025 Protein [Mass/Vol] 8.5 g/dL High 6.4-8.2 [facility] White blood cell (WBC) count Ordered By: Radha Morgan on 01-13-2025 WBC (Bld) [#/Vol] 6.3 10*3/uL 4.4-11.0 [facility] Internal Medicine Office Vis iton 01-12-2025 Internal Medicine Office Visit [facility] [address] [place] [address] [place] [address] OFFICE VISIT Date of Service: 01/13/25 MR#: [id number] Acct: [id number] Name: TONI JACOBSON Rep #: [id number] : 1990 Provider: Dr. Radha perla MD Age/Sex: 34/F Location: [facility] Status: Signed Intake Vital Signs 09/20/24 09:37 01/13/25 08:46 Height 5 ft 3 in 5 ft 3 in Weight: 155 lb BMI 27.4 BP 128/72 H Blood Pressure Location Lt brachial Position Sitting Respiration 16 Pulse 78 Pulse Source Monitor Temp 96.6 F L Temp Source Temporal Pulse Oximetry (%) 99 Oxygen Delivery Method room air Intake Visit Reasons: EST NEW PT - EST NEW PT Chief Complaint: establishing Financial Services Sales Representative Required: No Accompanied by: Self Is patient in pain?: No Allergies No Known Allergies Allergy (Verified 01/13/25 08:44) Medications ???Medication ???Instructions ???Recorded ???Confirmed ???Type levothyroxine 112 mcg capsule 112 mcg PO QDAY 01/11/25 01/13/25 History hydrocortisone acetate 25 mg 25 mg UT QHS #12 ea 01/13/2501/13 Rx rectal suppository (Anusol-HC) psyllium husk 3.4 gram/5.4 gram 1 tbsp PO QDAY #660 grams 01/13/25 01/13/25 Rx oral powder (Metamucil) Have you fallen in the past year?: No PFSH Medical History Thyroid cancer Goiter Surgical History (Updated 01/13/25 @ 08:[address] Radha Morgan MD) H/O thyroidectomy Family History (Updated 01/13/25 @ 08:[address] Radha Morgan MD) Grandmother Anemia Arthritis Thyroid disorder Mother Arthritis Thyroid disorder Aunt Arthritis Breast cancer Daughter Asthma Aunt Colon cancer Aunt Thyroid disorder Social History (Updated 01/13/25 @ 08:[address] Radha Morgan MD) household members: family current occupational status: employed 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 - [employer] Smoking Status: Never smoker second hand exposure: No alcohol intake: never substance use type: does not use what type of physical activity do you participate in: none do you feel safe at home: Yes HPI HPI Chief Complaint: establishing Details: TONI JACOBSON, is a 34 F who presents to the office today to establish care. She hasn't had a PCP recently. She is due for some routine blood work. She believes she is up to date on her screening. She does want a flu shot. She doesn't smoke and doesn't need any refills. She reports she is eating healthy and staying active. The patient has a history of thyroid cancer s/p thyroidectomy about a year ago. She has been on synthroid since then. She is taking it first thing in the morning before anything else. She denies any problems with the medication. She follows with endocrinology every 6 months and her last TSH was in normal range. The patient reports after she moves her bowels, she has noticed pain in her rectum. She reports if she wipes, she will notice some blood. She denies any dark or bloody stools, however. She reports it has been going on for about a year. She denies any abdominal pain, nausea or vomiting. She reports she is occasionally constipated. She moves her bowels every other day stating she doesn't want to move them due to the pain. She hasn't tried taking or doing anything for her symptoms aside from using a spray bottle on the area. She has never mentioned this to anybody previously, but then later said she discussed it at an ED visit and was told to use hydrocortisone. She reports, however, she never tried that. She reports she doesn't drink as much water as she should be. She reports her fiber intake is 'ok.' ROS Const Constitutional: No body ache, excessive sweating, fatigue, fever(s), frequent falls, headache(s), snoring, weakness, weight change, sleep problems or change in appetite Eyes Eyes: No blurry vision, change in vision, eye pain or Light sensitivity ENT ENT: No abnormal hearing, ear or mastoid pain, tinnitus, nasal congestion, headache(s), neck pain or sore throat Resp Respiratory: No cough, shortness of breath, snoring or wheezing Cardio Cardiology: No chest pain at rest, chest pain with exertion, excessive sweating, shortness of breath, dyspnea on exertion, lightheadedness, orthopnea, palpitations or other (no leg swelling) Gastro GI: Positive for constipation; No abdominal pain, change in bowel habits, cramping, diarrhea, Blood in stool, Black,tarry stools, nausea/dyspepsia or vomiting Genitourinary-Female: No difficulty urinating, burning urination, painful urination, urinary incontinence, urinary frequency, blood in urine, abnormal periods or pelvic pain Musc Musculoskeletal: No abnormal gait, joint pain, back pain, limited range of motion, neck pain, numbness, stiffness, tingling or Arthritis Skin Skin: No dry skin, redne (more content not included)... Normal [facility] THYROGLOBULIN PANELon 2024 THYROGLOBULIN 0.5 ng/mL Low [facility] Comment on above: Result Comment: Refe rence Range: Intact Thyroid 2.8-40.9 Athyrotic <0.1 Note: Abnormal flagging is based on the reference interval for patients with intact thyroid. This test was performed using the Jorge L Fili chemiluminescent method. Values obtained from different assay methods cannot be used interchangeably. Thyroglobulin levels, regardless of value, should not be interpreted as absolute evidence of the presence or absence of disease. For additional information, please refer to http://education.[employer] ([employer])/faq/MXO194 (This link is being provided for informational/ educational purposes only.) Performed By: #### 3 0278, 899 #### [facility] [place] [address] Lime Filter Operator: Martin Velázquez MD THYROGLOBULIN ANTIBODIES <1 Normal < or = 1 [facility] Comment on above: Performed By: #### 3 0278, 899 #### [facility] [place] [address] Lime Filter Operator: Martin Velázquez MD TSHon 01-11-2025 TSH Qn 1.32 m[IU]/L Normal [facility] Comment on above: Order Comment: FASTI NG:UNKNOWN FASTING: UNKNOWN Result Comment: Refe rence Range > or = 20 Years 0.40-4.50 Ranges First trimester 0.26-2.66 Second trimester 0.55-2.73 Third trimester 0.43-2.91 Performed By: #### 3 0278, 899 #### [facility] [place] [address] Lime Filter Operator: Martin Velázquez MD Thyroglobulin Tumor Marker w ith Thyroglobulin Antibodyon 01-11-2025 Interpretation and review of laboratory results Abnormal [facility] Thyroglobulin [Mass/Vol] 0.5 ng/mL Low [facility] Comment on above: Reference Range: Intact Thyroid 2.8-40.9 Athyrotic <0.1 Note: Abnormal flagging is based on the reference interval for patients with intact thyroid. This test was performed using the Jorge L Fili chemiluminescent method. Values obtained from different assay methods cannot be used interchangeably. Thyroglobulin levels, regardless of value, should not be interpreted as absolute evidence of the presence or absence of disease. For additional information, please refer to http://education.[employer] ([employer])/faq/UIG335 (This link is being provided for informational/ educational purposes only.) Thyroglobulin Ab Qn [IU]/mL < or = 1 IU/mL [facility] FASTING:UNKNOWN FASTING: UNKNOWN [facility] TSH DL <= 0.005 mIU/L Qnon 0 01-08-2025 TSH Qn 1.32 m[IU]/L mIU/L [facility] Comment on above: Reference Range > or = 20 Years 0.40-4.50 Ranges First trimester 0.26-2.66 Second trimester 0.55-2.73 Third trimester 0.43-2.91 FASTING:UNKNOWN FASTING: UNKNOWN Playdate App [facility] US SOFT TISSUE NECK OR HEADo n 01-07-2025 US SOFT TISSUE NECK OR HEAD EXAMINATION: US SOFT TISSUE NECK OR HEAD HISTORY: ORDERING SYSTEM PROVIDED HISTORY: hx of thyroid cancer s/p surgery, please evaluate for any suspicious masses or lymph nodes, TECHNOLOGIST PROVIDED HISTORY: Illness/Other Reason for exam: s/p thyroidectomy Cancer History: Unknown Surgery, RadiationHistory: unknown Encounter Type: Subsequent/Follow-up Additional signs and symptoms: none ORDERING SYSTEM PROVIDED DIAGNOSIS CODES: E89.0 Postoperative hypothyroidism C73 Papillary thyroid carcinoma (HCC) COMPARISON: Ultrasound of the neck April 29, 2024. TECHNIQUE: Ultrasound of the neck and thyroid bed. FINDINGS: Status post thyroidectomy. The area of heterogeneous echogenicity measuring 8 mm on the prior study is not visible on the current examination. No suspicious nodularity at the thyroid site. Previously seen abnormal right-sided level II lymph node now shows a fatty hilum with cortical thickness of about 3 mm measuring 1.2 x 0.5 x 1.1 cm. Two hypoechoic nodules at level II lead appear to be associated with the left parotid gland remains stable measuring 7 x 6 x 6 mm and 6 x 4 x 5 mm. No other abnormal/suspicious lymph nodes are shown in the neck. IMPRESSION: 1. The area of echogenicity at the left thyroid bed shown previously is not visible on the current study. 2. Right-sided level II lymph node now contains a fatty hilum with borderline cortical thickening of 3 mm. Attention on follow-up recommended. 3. The 2 subcentimeter hypoechoic lesions associated with the left parotid gland at level II are stable. 4. No new suspicious lymph nodes or masses at the thyroid bed. [employer] Workstation ID: [id number] Dictated by: SADIE MONTOYA on FriJan 10, 2025 12:58:03 PM EST Transcribed by: MACK MORILLO on FriJan 10, 2025 1:48:07 PM EST Finalized by: SADIE MONTOYA on FriJan 10, 2025 3:32:04 PM EST Normal [facility] Comment on above: Order Comment: Injur y/Trauma or Illness?:Illness/Other How long have you had these symptoms (acute/chronic)?:Chronic Reason for exam?:s/p thyroidectomy History of cancer?:Unknown Surgeries, chemotherapy, or radiation?:unknown Type of Exam?:Subsequent/Follow-up Additional signs and symptoms?:none THYROGLOBULIN PANELon 2023 THYROGLOBULIN 1.1 ng/mL Low [facility] Comment on above: Order Comment: FASTI NG:YES FASTING: YES Result Comment: Refe rence Range: Intact Thyroid 2.8-40.9 Athyrotic <0.1 Note: Abnormal flagging is based on the reference interval for patients with intact thyroid. This test was performed using the Jorge L [place] chemiluminescent method. Values obtained from different assay methods cannot be used interchangeably. Thyroglobulin levels, regardless of value, should not be interpreted as absolute evidence of the presence or absence of disease. For additional information, please refer to http://education.[employer]/faq/DPS531 (This link is being provided for informational/ educational purposes only.) Performed By: #### 3 0607, 637[address] #### [facility] [address], [address] [place] [id number] Lime Filter Operator: Martin Velázquez MD THYROGLOBULIN ANTIBODIES <1 Normal < or = 1 [facility] Comment on above: Order Comment: FASTI NG:YES FASTING: YES Performed By: #### 3 277, [address] #### [facility] [address] [facility], [address] [place] [address] Lime Filter Operator: Martin Velázquez MD TSH W/REFLEX TO FT4on 2023 TSH W/REFLEX TO FT4 1.46 mIU/L Normal [facility] Comment on above: Result Comment: Refe rence Range > or = 20 Years 0.40-4.50 Ranges First trimester 0.26-2.66 Second trimester 0.55-2.73 Third trimester 0.43-2.91 Performed By: #### 3 277, #### [facility] [address], [address] [place] [address] Lime Filter Operator: Martin Velázquez MD Thyroglobulin Tumor Marker w ith Thyroglobulin Antibodyon 10-25-2024 Interpretation and review of laboratory results Abnormal [facility] Thyroglobulin [Mass/Vol] 1.1 ng/mL Low [facility] Comment on above: Reference Range: Intact Thyroid 2.8-40.9 Athyrotic <0.1 Note: Abnormal flagging is based on the reference interval for patients with intact thyroid. This test was performed using the Jorge L Fili chemiluminescent method. Values obtained from different assay methods cannot be used interchangeably. Thyroglobulin levels, regardless of value, should not be interpreted as absolute evidence of the presence or absence of disease. For additional information, please refer to http://education.H[employer].Fuzz/faq/DYE951 (This link is being provided for informational/ educational purposes only.) Thyroglobulin Ab Qn [IU]/mL < or = 1 IU/mL [facility] FASTING:YES FASTING: YES [facility] THYROGLOBULIN ANTIBODYon Thyroglobulin Ab Qn [IU]/mL Normal <4.0 [facility] Comment on above: Order Comment: Speci men Type: BLOOD SPECIMEN Ordering Facility: [facility] Address: [address] [place] [address] Result Comment: The Thyroglobulin Antibody test was performed using the [employer] DXI paramagnetic particle chemiluminescent immunoassay method. Results obtained with different assay methods or kits cannot be used interchangeably. Performed By: #### T RYANNE #### [facility] CLIA [id number] [address] [place] [address] [place] TSH W/REFLEX FT4on TSH Qn 3.930 m[IU]/L Normal 0.270-4.200 [facility] Comment on above: Order Comment: Speci men Type: BLOOD SPECIMEN Ordering Facility: [facility] Address: [facility] [place] [address] Result Comment: If t he patient is , TSH reference range varies by gestational period: First Trimester (weeks 9-12): 0.180-2.990 mIU/L Second Trimester: 0.110-3.980 mIU/L Third Trimester: 0.480-4.710 mIU/L Mil Loredo et al. A Practical Approach for the Verifications and Determination of Site- and Trimester-Specific Reference Intervals for Thyroid Function tests in . Thyroid, 2019:29:3:412-420. Fitz Parson, et al. 2017 Guidelines of the [place] Thyroid Association for the Diagnosis and Management of Thyroid Disease during and the . Thyroid, 2017:27:3:315-389. Performed By: #### T [facility] #### [facility] CLIA [id number] [address] [place] [address] [place] Emergency Department Summary on 09-20-2024 Emergency Department Summary [facility] Medical Records Department [address] [place] [address] Emergency Department Summary 09/20/24 MR#: [id number] Acct: [id number] Name: TONI JACOBSON Rep #: [id number] : 1990 34 From: Mitch Marquez DO PCP: Care Physician,No Primary Status:DEP ER Location: ED HPI HPI - Female History of Present Illness Chief Complaint: Female C/O Informant: patient Narrative Narrative: 34-year-old female presenting to the emergency room with vaginal discharge. Patient notes a several day history of worsening white vaginal discharge. She denies any itching. She notes some mild discomfort with urination. She denies any swelling or lesions. She denies any fever. She notes some urinary frequency is but states that she does drink a lot of fluids. 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 PFSH PFS Home Medications ???Medication ???Instructions ???Recorded ???Last Taken ???Type doxycycline hyclate 100 mg tablet 100 mg PO BID #20 tabs 09/20/24 Unknown Rx metronidazole 500 mg tablet 500 mg PO BID #14 tabs 09/20/24 Unknown Rx Allergy/AdvReac Type Severity Reaction Status Date / Time No Known Allergies Allergy Verified 09/20/24 09:37 Social History Smoking Status: Never smoker ROS ROS ED Constitutional Constitutional ED: Denies chills or weight loss Eyes Eyes: Denies change in vision or diplopia ENT ENT ED: Denies ear pain, rhinorrhea or sore throat Cardiovascular Cardiovascular: Denies chest pain, orthopnea, palpitations or racing heartbeat Respiratory/Chest Respiratory/Chest: Denies cough, dyspnea or orthopnea Gastrointestinal Gastrointestinal: Denies abdominal pain, diarrhea, nausea or vomiting Genitourinary Genitourinary ED: Reports dysuria and other Details: Vaginal discharge ; Denies hematuria or urinary frequency Musculoskeletal Musculoskeletal: Denies arthralgias or myalgias Integumentary Denies abscess or rash Neurologic Neurologic: Denies headache(s) or weakness Psychiatric Psychiatric: Denies anxiety, depression, suicidal ideation or suicidal thoughts Endocrine Endocrinology: Denies polydipsia, polyphagia or polyuria Allergic/Immunologic Allergic/Immunologic ED: Denies mouth swelling, tongue swelling or urticaria EXAM Physical Exam Const Vital Signs: 09/20/24 09:37 Temperature 97.8 F Temperature Source Oral Pulse Rate 78 Respiratory Rate 16 Blood Pressure 135/101 H Blood Pressure Mean 112 Pulse Ox 100 Oxygen Delivery Method Room Air Positive well nourished and well developed General Appearance ED: well developed and NAD HEENT Reports normocephalic, head/scalp atraumatic and moist mucous membranes Eyes PERRL and EOMs intact bilaterally Neck no lymphadenopathy, supple and no JVD Resp normal respiratory effort and clear to auscultation bilaterally Cardio regular rate, regular rhythm and no murmurs GI normal to inspection, nondistended, normoactive bowel sounds and non-tender Palpation: soft Narrative: Pelvic examination was performed in the presence of female nurse (Lucy). There is a liquidy white discharge throughout the vagina. I do not see any significant irritation of the cervix. No chandelier sign. No palpable adnexal masses. Uterus is nontender. Back/Spine no CVA tenderness and normal ROM Extremity normal to inspection General Extremety ED: Negative for edema General Extremity: Negative for edema Neuro oriented x3 and CN's II-XII intact bilaterally Sensorium / Orientation: alert Motor Exam: strength 5/5 throughout Psych mental status grossly normal Mood Affect: Negative for depressed or tearful Skin no rashes or lesions noted and no wounds MDM MDM MDM Narrative Medical decision making narrative: Differential diagnosis includes but not limited to bacterial vaginosis trichomonas candidiasis PID pelvic abscess Urinalysis is negative. test in the urine was canceled because the hospital is currently out of urine and serum test. I explained this to the patient and their only other option for test would be a quantitative hCG. Due to the wait time and the fact the patient does not believe she is she wishes to decline. Wet prep is negative. GC and chlamydial test are pending and I think it is reasonable that we discharged the patient before this comes back. We can call her with the results. I am going to write for metronidazole 500 mg twice daily for 7 days. After the patient was discharged several hours later her chlamydia test came back positive. I made a call in doxycycline as the gonorrhea test is negative. We attempted to call the patient and the phone number provided which ended up (more content not included)... Normal [facility] M8200.2203on 09-20-2024 M8200.220 RESULTS CALLED TO [facility] 09/20/24 133Oren French. REPORT READ BACK BY SAME. Copy of report sent to Infection Control Printer MS#[id number] 09/20/24 Tez ELAM. Chlamydia/Neisseria PCR Chlamydia Trachomatis PCR POSITIVE for Chlamydia trachomatisA N. gonorrhoeae PCR Negative for N. gonorrhoeae CT Normal [facility] Comment on above: Performed By: #### M 8200.3000, M8200.2203 #### [facility] [place], [address] M8200.3000on 09-20-2024 M8200.3000 Pending Trichomonas Vag DNA PCR Negative for Trichomonas vaginalis Normal [facility] Comment on above: Performed By: #### M 8200.3000, M8200.2203 #### [facility] [address] [place], [address] Urinalysis, Completeon 09-20 BACTERIA 0 SEEN Normal None Seen [facility] Comment on above: Order Comment: COLLE CTOR TO SPECIFY Performed By: #### L 400.0001 #### [facility] [address] [place], [address] EPI,SQUAMOUS 0 SEEN Normal 5-10 [facility] Comment on above: Order Comment: COLLE CTOR TO SPECIFY Performed By: #### L 400.0001 #### [facility] [address] [place], [address] Mucus Ql (Urine sed) 0 SEEN Normal [facility] Comment on above: Order Comment: COLLE CTOR TO SPECIFY Performed By: #### L 400.0001 #### [facility] [address] [place], [address] RBC 0 SEEN Normal 0-5 [facility] Comment on above: Order Comment: COLLE CTOR TO SPECIFY Performed By: #### L 400.0001 #### [facility] [address] [place], [address] WBC 0 SEEN Normal 0-5 [facility] Comment on above: Order Comment: COLLE CTOR TO SPECIFY Performed By: #### L 400.0001 #### [facility] [address] [place], [address] US SOFT TISSUE NECK OR HEADo n 04-29-2024 US SOFT TISSUE NECK OR HEAD EXAMINATION: US SOFT TISSUE NECK OR HEAD HISTORY: ORDERING SYSTEM PROVIDED HISTORY: thyroid cancer, s/p thyroidectomy 12/2023, please evaluate for suspicious masses/lymph nodes, TECHNOLOGIST PROVIDED HISTORY: Illness/Other Reason for exam: Hx thyroid cancer, cervical lymph node evaluation Cancer History: Unknown Surgery, RadiationHistory: unknown Encounter Type: Initial Additional signs and symptoms: none ORDERING SYSTEM PROVIDED DIAGNOSIS CODES: C73 Papillary thyroid carcinoma (HCC) COMPARISON: Thyroid ultrasound, 09/02/2023. TECHNIQUE: Ultrasound of the thyroid bed and neck. FINDINGS: Status post thyroidectomy. Asymmetric mildly heterogeneous area is measured in the left thyroid bed at 0.8 x 0.4 x 0.6 cm, nonspecific. Level II right-sided lymph node is oval in shape but shows apparent loss of the normal fatty hilum measuring 1.3 x 0.5 x 1.2 cm. Within the left parotid gland at the level of level II, there are 2 hypoechoic masses with no internal Doppler signal measuring 0.7 x 0.5 x 0.6 cm and 0.6 x 0.4 x 0.5 cm, indeterminate. IMPRESSION: 1. Status post thyroidectomy. 2. At the left thyroid bed, small heterogeneous area is measured at 0.8 cm, indeterminate at this time. 3. Abnormal-appearing level II right-sided lymph node. 4. Nonspecific small hypoechoic masses in the left parotid gland that cannot be characterized as intraparotid lymph nodes on this study. 5. For follow-up, consider CT imaging of the neck. [employer] Workstation ID: [id number] Dictated by: SADIE MONTOYA on FriApril 29, 2024 3:27:14 PM EDT Transcribed by: RUDI YARBROUGH on FriApril 29, 2024 4:00:19 PM EDT Finalized by: SADIE MONTOYA on FriApril 29, 2024 4:01:59 PM EDT Normal [facility] Comment on above: Order Comment: Injur y/Trauma or Illness?:Illness/Other How long have you had these symptoms (acute/chronic)?:Acute Reason for exam?:Hx thyroid cancer, cervical lymph node evaluation History of cancer?:Unknown Surgeries, chemotherapy, or radiation?:unknown Type of Exam?:Initial Additional signs and symptoms?:none C. trachomatis and N. gonorr hoeae DNA JEFFRY+probe Nom (Unsp spec)on 04-27-2024 C. trachomatis rRNA JEFFRY+probe Ql (Unsp spec) Not detected Not Detected [facility] Interpretation and review of laboratory results Normal [facility] N. gonorrhoeae DNA Probe+sig amp Ql (Unsp spec) Not detected Not Detected [facility] C. trachomatis rRNA JEFFRY+probe Ql (Unsp spec) Not detected Normal Not Detected [facility] Comment on above: Performed By: #### 3 6903-3 #### PAUL SCHMID ([id number]) [facility] ([facility]) [address] [place] [address] N. gonorrhoeae DNA Probe+sig amp Ql (Unsp spec) Not detected Normal Not Detected [facility] Comment on above: Performed By: #### 3 6903-3 #### PAUL SCHMID ([id number]) [facility] ([facility]) [address] [place] [address] HCG ( test) IA.rapi d Ql (U)Ordered By: Ariela Jenkins on 04-27-2024 HCG ( test) Ql (U) Negative NEGATIVE [facility] Interpretation and review of laboratory results Normal [facility] HCG ( test) IA.rapi d Ql (U)on 04-27-2024 HCG ( test) Ql (U) Negative Normal NEGATIVE [facility] Comment on above: Performed By: #### 8 0384-1 #### PAUL SCHMID ([id number]) [facility] ([facility]) [address] [place] [address] Trichomonas vaginalis rRNAon 04-27-2024 T. vaginalis rRNA JEFFRY+probe Ql (Unsp spec) Negative Normal Negative, Invalid, TRICH neg [facility] Comment on above: Order Comment: The A PTIMA Trichomonas vaginalis assay is FDA-approved for testing on female endocervical swabs, vaginal swabs, and ThinPrep liquid pap samples. Performance characteristics for Trichomonas vaginalis on specific gyh-KNR-lqifufoh sample types (female and male urine and male urethral swabs) have been validated by [facility]. This laboratory is certified by CLIA to perform high complexity testing. Samples from all other sites are not validated for this method. Performed By: #### 4 6154-1 #### NICK Loredo ([id number]) [facility] ([facility]) [address] [place] [address] Urinalysis complete W Reflex Culture panel (U)on 04-27-2024 Appearance (U) Clear Clear [facility] Bilirubin (U) [Mass/Vol] Negative NEGATIVE [facility] Color (U) Yellow Straw, Yellow [facility] Glucose Auto test strip (U) [Mass/Vol] Negative NEGATIVE mg/dL [facility] Interpretation and review of laboratory results Abnormal [facility] Ketones (U) [Mass/Vol] 5 (TRACE) Abnormal NEGAT TIMOTHY mg/dL [facility] Leukocyte esterase Auto test strip Ql (U) Negative NEGATIVE [facility] Nitrite Auto test strip Ql (U) Negative NEGATIVE [facility] pH (U) 6.0 [pH] 5.0, 5.5, 6.0, 6.5, 7.0, 7.5, 8.0 [facility] Protein (U) [Mass/Vol] Negative NEGAT TIMOTHY mg/dL [facility] RBC (U) [#/Vol] Negative NEGATIVE [facility] Specific gravity (U) [Rel density] 1.012 1.005 - 1.035 [facility] Urobilinogen (U) [Mass/Vol] mg/dL NINF - 2.0 mg/dL [facility] Appearance (U) Clear Normal Clear [facility] Comment on above: Performed By: #### 5 8077-9 #### PAUL SCHMID ([id number]) [facility] ([facility]) [address] [place] [address] Bilirubin (U) [Mass/Vol] Negative Normal NEGATIVE [facility] Comment on above: Performed By: #### 5 8077-9 #### PAUL SCHMID ([id number]) [facility] ([facility]) [address] [place], [place] [address] Color (U) Yellow Normal Straw, Yellow [facility] Comment on above: Performed By: #### 5 8077-9 #### PAUL SCHMID ([id number]) [facility] ([facility]) [address] [place] [address] Glucose Auto test strip (U) [Mass/Vol] Negative Normal NEGATIVE [facility] Comment on above: Performed By: #### 5 8077-9 #### PAUL SCHMID ([id number]) [facility] ([facility]) [address] [place] [address] Ketones (U) [Mass/Vol] 5 (TRACE) Abnormal [facility] Comment on above: Performed By: #### 5 8077-9 #### PAUL SCHMID ([id number]) [facility] ([facility]) [address] [place] [address] Leukocyte esterase Auto test strip Ql (U) Negative Normal NEGATIVE [facility] Comment on above: Performed By: #### 5 8077-9 #### PAUL SCHMID ([id number]) [facility] ([facility]) [address] [place] [address] Nitrite Auto test strip Ql (U) Negative Normal NEGATIVE [facility] Comment on above: Performed By: #### 5 8077-9 #### PAUL SCHMID ([id number]) [facility] ([facility]) [address] [place] [address] pH (U) 6.0 [pH] Normal 5.0, 5.5, 6.0, 6.5, 7.0, 7.5, 8.0 [facility] Comment on above: Performed By: #### 5 8077-9 #### PAUL SCHMID ([id number]) [facility] ([facility]) [address] [place] [address] Protein (U) [Mass/Vol] Negative Normal NEGATIVE [facility] Comment on above: Performed By: #### 5 8077-9 #### PAUL SCHMID ([id number]) [facility] ([facility]) [address] [place] [address] RBC (U) [#/Vol] Negative Normal NEGATIVE [facility] Comment on above: Performed By: #### 5 8077-9 #### PAUL SCHMID ([id number]) [facility] ([facility]) [address] [place] [address] Specific gravity (U) [Rel density] 1.012 Normal 1.005-1.035 [facility] Comment on above: Performed By: #### 5 8077-9 #### PAUL SCHMID ([id number]) [facility] ([facility]) [address] [place] [address] Urobilinogen (U) [Mass/Vol] mg/dL Normal <2.0 [facility] Comment on above: Performed By: #### 5 8077-9 #### PAUL SCHMID ([id number]) [facility] ([facility]) [address] [place] [address] T4, FREEon 04-19-2024 Free T4 [Mass/Vol] 1.3 ng/dL Normal 0.7-1.7 [facility] Comment on above: Performed By: #### 4 6567 #### [facility] [address] [place], [place] [address] Adrien Gray M.D. [id number] THYROGLOBULIN TUMOR MARKER W ITH THYROGLOBULIN ANTIBODYon 04-19-2024 THYROGLOBULIN 4.9 ng/mL High <0.1 [facility] Comment on above: Order Comment: Assay performed by Jorge L [employer] DXI Immunoassay. Result Comment: Refe rence range applies to athyrotic individuals. Patients with an intact thyroid are expected to have levels less than or equal to 35 ng/ml. Assay performed by [employer] DXI Immunoassay. Patient results determined by assays using different instrumentation may not be comparable. Performed By: #### 4 6559 #### [facility] [address] [place] [address] Adrien Gray M.D. [id number] THYROGLOBULIN AB < Normal 0.0-3.9 [facility] Comment on above: Order Comment: Assay performed by Jorge L [employer] DXI Immunoassay. Performed By: #### 4 6559 #### [facility] [address] [place] [address] Adrien Gray M.D. [id number] TSH WITH REFLEX FREE T4on TSH Qn 7.57 m[IU]/L High 0.27-4.20 [facility] Comment on above: Performed By: #### 4 6612 #### [facility] [address] [place] [address] Adrien Gray M.D. [id number] CBC panel Auto (Bld)on 01-02 Erythrocyte distribution width (RBC) [Entitic vol] 13.3 % 11.6 - 14.8 % [facility] Hematocrit (Bld) [Volume fraction] 27.4 % Low 36.0 - 46.0 % [facility] Hemoglobin (Bld) [Mass/Vol] 8.6 g/dL Low 12.0 - 16.0 g/dL [facility] Interpretation and review of laboratory results Abnormal [facility] MCH (RBC) [Entitic mass] 31.6 pg 26.0 - 34.0 pg [facility] MCHC (RBC) [Mass/Vol] 31.4 g/dL 31.0 - 37.0 g/dL [facility] MCV (RBC) [Entitic vol] 100.7 fL High 80.0 - 100.0 fL [facility] Nucleated RBC (Bld) [#/Vol] 0.00 10*3/uL [facility] Nucleated RBC/100 WBC (Bld) [Ratio] 0.0 % [facility] Platelet mean volume (Bld) [Entitic vol] 10.0 fL 9.4 - 12.4 fL [facility] Platelets (Bld) [#/Vol] 222 10*3/uL [facility] RBC (Bld) [#/Vol] 2.72 10*6/uL Low [facility] ealth WBC (Bld) [#/Vol] 10.55 10*3/uL [facility] Calcium Levelon 01-02-2024 Calcium [Mass/Vol] 8.5 mg/dL 8.4 - 10. 2 mg/dL [facility] Calcium [Mass/Vol] 8.4 mg/dL 8.4 - 10. 2 mg/dL [facility] Calcium [Mass/Vol] 7.7 mg/dL Low 8.4 - 10. 2 mg/dL [facility] Calcium [Mass/Vol]on 024 Interpretation and review of laboratory results Normal [facility] Interpretation and review of laboratory results Normal [facility] Interpretation and review of laboratory results Abnormal [facility] Tissue ExamOrdered By: Cleveland Maria on 01-02-2024 Annotation comment [Interpretation] Narrative b5ssbQCdSARvdLNbZEHwF7av irOfPKGzsGChG2CzbdjuNNzl UF7dJS9ddRvupSEwbYFyYBAp FtGpl6iak609nSDmn4coHGHM bwbzeQf0kVswN57jp0P6Yyph B33qyJWlCSX2MLQgVAArjRQd TFZvBYN0VWZqqESrT2ccVTTt DT9lsvvySAusHWhnQOAgtFO3 GZDcyQMoF6UcRJOaYNkzAIOj wze6OnRhRk5ujSUmkSvzZKpk YXJkXHBsYWluXGZzMjAgVGhl HSKzO1CsRT0qXGLurAvxbRAl yOZ8dGagl6vkWPIdabLahs8e DRIflnFjJUHsnJqncICfUS0v HSPqty9cnoSrrADtESQ7kP0x khSkzei9TXJbi78qm1YfvDvc ofxwc0MsrGeyKVCjiGXwOEWf wXMejGLwIQCJSKQ0uQEcDGWn n6I0p6AaZAR3jFTtTIUvGzIH cmltZXMuXHBhcn0= [facility] Work Phone: Case Report Surgical Pathology Report Case: [id number] Authorizing Provider: Hector Cerna MD Collected: 12/31/2023 09:42 AM Ordering Location: [facility] Received: 12/31/2023 09:47 AM Pathologist: Cleveland Maria IV, MD Specimen: Thyroid, Total, Out of body at 0942 [facility] Work Phone: Pathology report final diagnosis Narrative u8rxbKNwMARilCBbEBVcG0sm ugTqLCIxmRHcB0QpnrcyTCjp RO4aHT8jyUkemJTjzGJtBDFi UoSpb9uoq737mDQzr6giVAWJ quvbvEf8iXtuD92tx5L8Ffns N4upBDTzWSjzA6EhYH7pONmf Irm3XUZvMnlwkvIrTNqarxGx prKtEqn4MNL6vOqzCbnigDG6 bCNubSG4LWuez5NfzIcveFcb QzK2IyKxKLD3XQmgj9O5BK5y bLP9MCobPPG6HNcje4LfNC2k KEz4JMxfu9UiqUQkmZI4AStk t1UsIXOrzExwNQHsbM5eKyBx zCV2RQjeQdIyTKyiRAKkqZsy ECuaWUEunIV4TIU9SOYht9xv MMHqfHIgoMHyXjPhHIlfWZ76 yPkvzRL9BRykjX7rXDTmOUmh NPd7YDjtTKY1ZTmufT6aQoG8 a0fquBO1qHZ1AJnonDT8PUij BhK8SCbyelDaayDfwvDabWX7 AZhaOkDhcEH4AQymgITswMY4 OCailMZ8JRy8OYs2BQxpUndk IUCgH064HPsbugQzybRbOrYy s6dqCNX4fMufvHP5EGEdIcmk MzYwfXtcbGlzdGxldmVsXGxl tdVoeeKxXxsqNYXgxD1vB02r IWqbikPyozIvUVylqoMcw0Zb iwAtsND4MAztedRnaPF5eRkh LNOnEtMqNmk3o7dqZBPieO48 aRKqbfBhBpXsN48uoHdqOSMs PVTkOJQ7KG82FMzoj5XtFGCv dVwiFTPezX6dTwRdjCS3QDkt ZmNuMFxsZXZlbGpjMFxsZXZl vTK1GNE6DPMyj5cmQPLhaPUw yZAsVkMzQOndLo95yLdvkPR8 BKpqoH3kEJDhHXkeZQw0MUbt NwK7WVnnnA3bLvL6q7evrIA5 tGZ6FSwsvRA6ITrtPhF2NRlp jvUkotXwjrChgNZ9QElkFgKe hQC5JCiybGRchIM2CJzwsSZ7 LRy2FKp2VPxrSiqmBEFzE486 XFuczoJqjhUbBhPkz2oeHOE0 nNgblWC3ZdVyWaieUaTvsBhg bGlzdGxldmVsXGxldmVsbmZj NjnoFGGkmP4nA47lMKffrwTh nsOkTNqyaeXei1UjnpRnqOG6 XClyfbXitYY5tTwfUEXgOzO6 Bwn3d0ysRLIgpV22zDIiwrPu HyPpY39vhZl6IbwaOZClLJJ0 HA17KXalq5AmVAErdMbhHZQi oU8nZnZwzST5HVmkSmAnHTor ROWuwMdqOJinGAUuhVK9AQY0 BGBti2wcSAQnyPVabOGdZdTx OUtiZl61fQmigOA4JXfxuE0b NOToTCrhMIg3JRdeQBWoKBvx qO0hKxG3w1giqYI5wPK0LVnd sRD0UMtsQuJ7LCrkllTgcqUv dnGstXD0NKetFqKbeDW2GMyy cMWuoDY7DOudqAI3EFa0NHv1 TRsxKvaaLTlqX359SBakgeIf dsWvQbQxg0giXNS5bVuthXEn MjBcZmktMzYwfXtcbGlzdGxl dmVsXGxldmVsbmZjMlxsZXZl iF1kQ70yIWwhigOjphTjUVdd nqSoh1LgmnUrbSZ9JLwfdcGt aJW0kIccIDYrYqR7Qso6v0za BMFhaE22kLFzdiJlKqBzC44h lGi5AQXyWGNbWLF0KR37zDwq SwcroMO4j3YafoFaYCW5YXKy DVqtXrlwpVU9b5DxlvIzRWDq yBsfbUzyFyG5WuZiJZC4MRdj j1DavhKixtdfTZYxxR88VYqs xlT7dViaUYJuprzjLrI3JBzz DGEgskwwNWg4ZExfTLFqoRD0 LIBmaHHnJ0ZhJTKzZT4lxvt3 QCP3GCbcFZEuObZ8WTKhsAEm YPEwpJtwWJzcb670SDT2JfCb ADNww6iwVRRqsGKHyRB3sS7k cnEotTyjQTZ8hi29BJGliOBc DGR2O3d1orEfEAHqrZEicDTv XTXjdTMcCIw2ziOcUVFjyqXr rQFuGLRwkdSaKNb3blItNILo TrMjZ3anYxTxqZBzW7kcwyIq oPbsngYcel3jUMbfdOGlMCBs DLHvTHVhj26aFSWlMiPwlxUm RsXaqh7ukkSyP1mhvbZtEqtn sfBkws6hKIxcxRNmouVxhILs W8mdvEWKjUC9eEQdS4i6S7dh uHujVHt0SQnxDZabrFYlAuU8 GQZabtGpeZ05LnznqBFmlRgl eD9hQjvumzFsCTJZSKELPGBt A2yCHiV2GKZLKAZTARxRJson F4EXG5jUA67NQJEddTplfG99 Iqzsrc70UHHqbdMqByEivQDu ZNRei5gbITFokAWCuSY4wF5c pvHlxRa9mdFaJHTosVOxnVEx YWRkZmwzXHRycGFkZGwxMDVc dHJwYWRkZnIzXHRycGFkZHIx MDVcdHJwYWRkZmIzXGNsYnJk cnRcYnJkcnNcYnJkcncxMFxj bGJyZHJsXGJyZHJzXGJyZHJ3 CIWvO0nohuEzqlksliRbn3wt cmRydzEwXGNsYnJkcmJcYnJk cnNcYnJkcncxMFxjbHZlcnRh wWSdA1hajMVXeEH6cKMnO4a2 Y6phaUlxZfP9KNJmyZn9Zekk ABcnfIYqSFS6EFLcLKVaSHNk PSD6UAYqC9epezVlwRrmfwKc w4lklbCpnyAcQLOzSjLadnSe YnJkcnNcYnJkcncxMFxjbGJy GFClBSRjDFIbGTOeJJO7MNGx X5h8VWP4NHm3VUUdSiFrR6lm zIezOCOtb7vnGLMsKkGqOOEt oOs0Hsa0CHocgZVwVZO9ISAw MAWyEGFnHOL3BJTxS8mbfmTo qAecwePtm7jrmgSdugMhBJPa YnJkcnJcYnJkcnNcYnJkcncx MFxjbGJyZHJiXGJyZHJzXGJy WAL2RRKhX0x9QZM4TKa0JBKq FgCwK0yzaKyrUTYgy1qsNMVa Bxg7MSqsNTsedEVuJjQoZFLc pmEguB75MvcwYILhF5HidEIl PzhzBAcoDOEpqkNebI94Oube Q8EfsVdlGZJyXPbgxDKnEHXk v1AqP3C0WIZzJDzmj4reQYJt ECtxe7MfYDaZJEKQJX5BKU4d pZB4JAiADMXHT9sXeEL0PoW3 hYE9VN26PZQkGVKkhHKjMSrq M532TN17LSpzuOy0hu1oWNDz xJ7qqLqhEpbknQK2CUncGerp wN3vzNGWPDIENmfSAmfrrxYn AH2SKNFMVJ3IiLW6SbL6zLR4 ML68PWGzCPDjdKBdZCloB597 RBXdTFfaCDUgOaSqO1ZazTon raHncGrmp9smvGRjo3WwPLYp C0pjCHHcPQLepKBbISBueALp ACO2B6e2ygFxWVRfxXNilZPp ZOHogHLkEMn2qlUjBBCyjzKr jGDoAGQudoEaNXt5oqWiZLHs VaAhH2xyviCxdFnsxeAnd2tg cmRydzEwXGNsYnJkcmxcYnJk cnNcYnJkcncxMFxjbGJyZHJy ASNaVORbRCGqOHK9FQHfF5lx nqTyXrxikiXgv0qbhtKpmbAk EXArlySceVHotNbzpTA1g2ou YDHyM1rmeZlIuJJ8xOF9EGXh W6SjwJnmArW6RULbBkUqlcOb YnJkcnNcYnJkcncxMFxjbGJy PNOsLERvSHRnVTTnSIQ4HREj J3hhvnRoxtzgnyWlp6mjiuMc dzEwXGNsYnJkcmJcYnJkcnNc YnJkcncxMFxjbHZlcnRhbHRc T4fdcJUFoFC9wMJtV2i8C9lg kVlqRMRuA1UkqJwyVCK2SPPh YnJkcnRcYnJkcnNcYnJkcncx MFxjbGJyZHJsXGJyZHJzXGJy ABK5NTSbL9rxpeGrjyjbeyGw j5iefiOvhpKsHLPvUsIvxeYc YnJkcnNcYnJkcncxMFxjbHZl fqRwuETwD8ddfBLWcPZ7gRZr C7p8O9ayjIa7Hba6TQXcbVn3 NQF6FOYyuFUgLTjqhrFrfMBN nB6jpaZtm5HtqCc1tIztX6Sc bFxwYXJkXGludGJsXGNlbGxc kVRzRHfhcmQdgDicnc68LBK0 e7glgEPkKLkcQjirgIUeutP2 IDgESAMJPEmJHvXlDD2hJAjL N2DEMUcHRzukVRBiXXqguRH4 m3duoNRux8o9UMaqNSM7rEGq sIZhC5Wuz4kiuJYpFOzfEkvp nRArphE4MIiEASXQTAjBMbNi AC5iEQcHC8JALyD8VxuaFDn7 MnwyfXtcZmxkcnNsdCBcJzFj rN8pyBosxQ9qYdTmITlzRVlm WFcrrREbGFEqj8j0oh67CYxh nKskM5jvkDnEZZ87DXgsgBSo YPCgNjOsTTWsfFRfVDJxE5u6 gxYpUMTvRRW8VVBjeVJkFZIy M1s8yvRsLEYbQTA6ZQEkaKCz PBMrK4nduGKbWFY6PLTsAERv YMQuCOJ6IBTqZ9rnxnIviSyc paYni7wriiAhdpCjRPGdYzCf cnJcYnJkcnNcYnJkcncxMFxj bGJyZHJiXGJyZHJzXGJyZHJ3 ELJaL1i4FKR1OIm5QKWrWsLg P9limUtaLDIdm9eaXXWnUwmx SUzbNFjimCH9ZCLmO7fpceEb vCqjyaZoo8mauaYlpzAlWKDx YnJkcmxcYnJkcnNcYnJkcncx MFxjbGJyZHJyXGJyZHJzXGJy BAV8KGHmI6nkxjFzIjxbuhEl i4jjqqIeyvAeQWNvkqCbvGGz aQygyTL1v7ieKCDkJ2awiNkS lJG3rOS2RGqcFXpsuVY5JKMt Q0owabNznIyvicGak3leaiSu dzEwXGNsYnJkcmxcYnJkcnNc YnJkcncxMFxjbGJyZHJyXGJy FQUcYVXvPLD3NVMeD7hytvHa HbzfpiHgq3nyetFlbgSxUEKv ruZjhTXylTgwqAX8z4esZWWe T1zpgBmWeCI6cNF9ZEvlT3Fr pRjsDWd5WdgoADMpKQwxbQFg HHV1sS4wBRZtgJL1ZHZdbUyd cGFyZFxpbnRibFxjZWxsXHBh bqZauH73NtgulUTfiQLlsLco BbowpIZ9PYkrWrvtbF2rgJKV FUTPAdlYIwskshLfAH3IFIIJ OpMIQQ88AlojSzX5K5blyRpo UavgmoBgkMEkLnPphX6UcHmd qBZtq1Iop0rgfGLmFYjjJqhl dWOeinT4HSgVRNPQXNfLNfXq OY9rDChLD0XGNvL6TltxXtI7 T6evrAcyVoilunYdoEVbXxKu dF9pmCwjhW1rQxBmVOlkEXih JLrwmSXcXPXne8z3tp35SBcq kOfeG1plgVtNWD96MBohfLLo MPFaVfKxSCYshQOrFLJfM4t9 fqAsNDFvHOG1GIOhlOBySLTt D5s0ujDgTRDjBXK2OWQtwIQa OXPwJ5tdvIOzFMW5JMAoTPTg XUJlJJP0QXEwL6qruxOaaBkv seNtf1iswnHgsdUpVNAqFbZf cnJcYnJkcnNcYnJkcncxMFxj bGJyZHJiXGJyZHJzXGJyZHJ3 UTNzB3p8DLI6BFk7VSWmKwCg U4bcnLfgGPAap4gqLDOsFrno COmhNXsnrYB3UQWmM1bacnVv dKzyfjEzu6qtkePhxuJeFBZn YnJkcmxcYnJkcnNcYnJkcncx MFxjbGJyZHJyXGJyZHJzXGJy NVS7ERToA2dxiyBjYyxapzQw p4slzqTyrkClKYGczjQrdIQu jYkfkHG6o9adVPLtF3ymkDcA jAC8tRT8AOuwOHhurKP1BGNv E1hdbkQheHirkrZda0ygmkMc dzEwXGNsYnJkcmxcYnJkcnNc YnJkcncxMFxjbGJyZHJyXGJy VSIkAWHvDNN3RMFsI6odlzGo UvocuaIfs6lemjTdrxNfRPWv qfJpsJRohWzgzVZ4f8rbRLPp X3qjhVtKmNQ4tDM2MXvyU5Cq iIflLYc9CpboDWAuVCbgiFJm VGE1vQ0lUWDmpcUcKAoyAGW4 ODJ8MMYinZEfw5fijjv7TQBd bGxccGFyZFxpbnRibFxjZWxs IZKsnzAibT31LkvkEH60ZKPw UTquMRayXRhimQJtRASqv4b5 oc73OKwnpLzbJ8rtiXgPYW42 YWxcdHJwYWRkZnQzXHRycGFk WWEbS7s2ziIcOJQoLJC4CVBq wVWsLDHzW0q0pwZtKOSoEOR4 ITJbmTJhDAKpT3xdyLIjOZV2 LZOwXOSvECXzLJS1RPMlX8ws ofFhpEbmbvTfm1faqgRnuzVj XGNsYnJkcnJcYnJkcnNcYnJk cncxMFxjbGJyZHJiXGJyZHJz VRZzTVQ1NPYyW9e5EKQ3SHt2 JIRvGlQsP4ylrLgiXWOiz8mz QADkKamfYTfuUJhliBZ8SCCn X0mxptEztIzockXnq6cdtcNt dzEwXGNsYnJkcmxcYnJkcnNc YnJkcncxMFxjbGJyZHJyXGJy COKpRKTbBAY9AAYsV0qbckXi AuyxegKoa5didxJmdkXyAGBd kqJmlVLjvHkjbWW8h2bcANYl Q5kiaKbGbFK2fGM0ZNdwDXdf jAS7WJPmT8xmueCxnWknneSg n3yavoUnddZcLUCfAtKuujpm YnJkcnNcYnJkcncxMFxjbGJy LHLbGEKlHKAfRJOiPJD8RVWf H3xohgCcBlfbvaLxz2xmycWe dzEwXGNsdmVydGFsdFxjbGZ0 r0coVUYbA8efxMxLaHI4gCP2 MYrjD8BvtVwfKHx1FjurIWKa NOwrtNQaKJddw3AmaX0xoUPh pUqtQYlcU7ZgaOajVLTfJZfz dGJsXGNlbGxccGFyZFxpbnRi jVdkvo79XHA0d7shkNFiYNln UpemuKHhsyB9VYtXPKLVTYjP RxZpOK5cYThFQ1IXDVqNZse8 XJB5R0h6uJO3t4fuvPAcw7n2 LJggXUV5hSHdiQtowIJlmVAp TGNftS8yxLJzVUQoZEPfvQXx v9HosRkoZGncTdnlpAE0UXis PxcheF9luZEBPUKJLvoMCvzo yzOmIX5DRFVJOQ5SyZE6Yevv fJL2QK26SGIaEYVtcAOsRJwi F921WOWzWMzrEQFwQmOtB4Qd gHypynYeoDeza5qmhISry0Lz KEAsD3wuPPMkSPNrbMVfLZGq aPPpBHL2J1s1rlRiFQIfbNVe yQSkRTTimLAdSNx7yyZuNRXu yoDzpCQyQEJiggTxKDr9isXy QBKnTxLzB4jmsnFtoXnjcbMx a7mbnmNwhpVfSYUnBdRclczb YnJkcnNcYnJkcncxMFxjbGJy QTUlWIQnAQAvKMIhDKC7TXKy I7sutqNtGgicobVam0jgxmFk dzEwXGNsdmVydGFsdFxjbGZ0 j3tkLXTjR7iwdJiCeIL8hWT1 IFOdT7KjoBrhTnQ6PRRjEnGf cnRcYnJkcnNcYnJkcncxMFxj bGJyZHJsXGJyZHJzXGJyZHJ3 EQCqW9cdcbHvpznbhhEhg1hq cmRydzEwXGNsYnJkcmJcYnJk cnNcYnJkcncxMFxjbHZlcnRh iCKjY2ljzETEeCT6eZAaE7f2 G1kwrNmwQIJeI8ZrnTquDJO6 XGNsYnJkcnRcYnJkcnNcYnJk cncxMFxjbGJyZHJsXGJyZHJz LNDgNKJ6DCBvD4grhxCqijze zcXmu5vhhcYmqlMnBPXeDyVx cmJcYnJkcnNcYnJkcncxMFxj hHQkydAljUUmG4qurJKDlTB4 uTNlF5n0X3xmqVr2Rrq1UPTj wZx5IGR2OSTraGKiQUbzjhBo tNFYiMGciRebSAIocDR2BAUe bGxccGFyZFxpbnRibFxjZWxs WIFgetFufA41TapxkDPbfKGv oIdxDvrchKK4QXciYzuvpB1y dSNNOXLWAkeFTgdctaMiFP2E UQUSUtKSXZ26CNyyLDV4UWh4 rBhtFdllwiSmuKXqXeKmqN6V RPMbVDYvNO0eQkRsyAVqc8Rj MUDcmiQvBE5zIlP4AINeLDfa t1svDVGgOMwal9BxQPqTZZKL DK4QIX1sbJA0VYhJIRVJGXl9 JZC5LVt5pJZ7m7avyXFcb6o4 QHtpGZW6pKufkWOidvtfpsBp LTErfCouyF04Qzpxjo61KFUd r0lgFWJvbRCDuTF1gS5vvnJd aAl1xzHxADOfjNIioETmPYBs ZmwzXHRycGFkZGwxMDVcdHJw YWRkZnIzXHRycGFkZHIxMDVc dHJwYWRkZmIzXGNsYnJkcnRc YnJkcnNcYnJkcncxMFxjbGJy EYEsFKYeSXYqLPSyKPT8XPPo N0ybnyPqllwpuwAjl7eogzJj dzEwXGNsYnJkcmJcYnJkcnNc YnJkcncxMFxjbHZlcnRhbHRc C8fqgKOYkRC2cQBdV6l8V0mu uNuvWwG1SBQapTa2IlfkHKru tKIqLJM1SIGdWBUwDVEoPGT5 SQFdT3pgezPysNhhkzGwx9ej cmRydzEwXGNsYnJkcnJcYnJk cnNcYnJkcncxMFxjbGJyZHJi HQTcGTZtFJWhXUJ6GQEnM1q0 FRM7VCb6BYLsMrTgL8bbeVgb FAOrf9mzKWNpIqIvFBUxtMc8 Qut0OOvarMWeGCL6FWMaYJNn DWLmMRF4ZJKfB9amrhQrsBdz ngWjr1gjfnKklaWuYCNjDkZu cnJcYnJkcnNcYnJkcncxMFxj bGJyZHJiXGJyZHJzXGJyZHJ3 WGHgV0f7HXO4ZYt2MJMfWkDz D5nzhFhqFEBrm0jmKOTgRok5 OFxjZWxseDEwNzUyXHBhcmRc sP39XcuqS2kgFjsmcIIfLXew pwcapC6uDEx6PCevi8XkcMKz gPvzGOB3Z52yhXNoKK5oZMJz mMKfwXPorfEuGh3oxMxhfJuf wmXfTFIwlA7qcHRrKRffIKbb CHHxazDgyB99JrhvD5EigMbx FUYdIWcaxFYoJKVwj8NiZ1U6 AWYxYZygb1plVYNrQDbmf1Nt ANqZPSSMQI5JZZ5cuGC4UOgL DWRDA2nBeBC0Iqd9yJK3Ri53 WCDnLRTzzTJlXVdaH181Yu91 VAJzuOvzB0BlqJJ3YOAvFIqe r0bbUWLqHGacj3UxXSvMIIPR IB8FJH5huRH3PLoNMQWKJOr4 EKN1Ayb3hLJ4i6wjiIHcp4k6 QTrwKPQ5yRwvlNJutliddgRg UITmfJuaaE17Ptvdcg18EPIg z9gyXMGhjTZAcJC0kH2pjtSz jEb3aoRuKDJvwPFoyYNqCIUx ZmwzXHRycGFkZGwxMDVcdHJw YWRkZnIzXHRycGFkZHIxMDVc dHJwYWRkZmIzXGNsYnJkcnRc YnJkcnNcYnJkcncxMFxjbGJy QYOcLMDeOGYrPDEdMTV4BNCc Y0cnfiYpwwsbohHzx9htrmZa dzEwXGNsYnJkcmJcYnJkcnNc YnJkcncxMFxjbHZlcnRhbHRc N1cwoSWYcIE7bIRoE7a0U4gf gVmfQiJ7BEOlrGf3AtvmFMjk lXZfIUQ8YEVqMRVaYLTdWOQ0 ADYnI3aefoCwbOeyimCdh9gc cmRydzEwXGNsYnJkcnJcYnJk cnNcYnJkcncxMFxjbGJyZHJi LAXbXGGmHUCrJOH6CQCcC8i8 DXU4XRo5WDInVvUdM6jvdPdj VNXda6zyILNaRzTfTLVhkIq5 Zzv7VIggxVIhFPZ6WUZbBLGj MCFtYHE9QTScM6ekmpHmaSri oqIcb5vxslOdsbOkGUGjJqDe cnJcYnJkcnNcYnJkcncxMFxj bGJyZHJiXGJyZHJzXGJyZHJ3 FPSdL3u2JNL3XXn4JEHnPhOh R3kpjYanGTXkk5yyQOTsAha5 OFxjZWxseDEwNzUyXHBhcmRc dS82UbdiLCCxn7YepyEtkg6m rAD4SYdlWSzoRYPtpdYaxE61 EhyrC6BpvHxlPVOvGLebvHXb FOUbx5FwT9D0YEBlCUtla5gr HCKbQJypq5GsJOeTUFNWUZ5Z AR5hmHE3PSdDJJHTY0uBiWT6 Xsq2lFv4T930FGIuYROmvXDo PUoeA309Do18BLxmHT78iDOx TWF7YPSfNVvjb8ovHIXlTUkq t2ZaHHrJXQAAYI7ODF6lfAF9 DYgDPHXFASt1IIH0BGj1lIj8 b3cdrHSpm3r5ZWlvRUZ5uFmi oTOkyrtcxcRhQFBaoTparR04 Kuzseq09URVwb2htXNUcgMFZ mNP6gC1dgzTwpKe0wnSoNSJj dDNcdHJwYWRkZmwzXHRycGFk ZGwxMDVcdHJwYWRkZnIzXHRy cGFkZHIxMDVcdHJwYWRkZmIz XGNsYnJkcnRcYnJkcnNcYnJk cncxMFxjbGJyZHJsXGJyZHJz YJVkYBY7TOOhQ0raxrSorbgv fsQqw4gtmdYdmmKxJQZfIeHh cmJcYnJkcnNcYnJkcncxMFxj aELaeoEzdDLiN9fjcEHDqEG7 gAZdL0y6R5kpiInbPcR3DOFk tPw1WvbcJIgutXZhTBI1MDUt DJCpDZEjFJM2YPEeC3vnuyRc eYfwjjRvx6pvnmNpvwIdBNTr YnJkcnJcYnJkcnNcYnJkcncx MFxjbGJyZHJiXGJyZHJzXGJy YOE0DKIkA9k4KUW4DPu6YRLd FiViJ9otaWhbPNWih5hrTLEy RkNkMYJvsNy6Twh3DYvdjGCe XNG7HPKhWFIxCVQyPEL3CQJf G3pxbjPqlIrbzrLuz0isipJk dzEwXGNsYnJkcnJcYnJkcnNc YnJkcncxMFxjbGJyZHJiXGJy IVBqAXKmQTL4VDJoS8p5NYU6 PTf3FLYkToZbG3syoOlmBSMm z4zaBSKqEdh1IZrhIAmhxJSf QfPeRPPztiQhsN31NbcgOL2u yA4oguSuj5zngowmBpIkJZWx bGxccGFyZFxpbnRibFxiMFxj WJttECEriuFnbY16WexjkONg tCRneSlvSvvowKY6GZjiVzol vU7gvVGGKKOQTtxTYgfsfpJc ZT5OKLUNMfGSGX57QzswQrF0 NAf5lDatHzmsusZcrJTwSrKg dW8Px3YqhMErupGaXrjmLPM2 BBTpWVlaw5ycYBCtTRaao7Yp LQqKBOFHPA6FHZ6ahLN5YAnV JKSUJVjoDKRbN1r1wOs1i8bi hUNdm2a5DEoiOWM6kEazdXHl pbbsbyRhULQgdFfvoX92Luwj ih92TACst3xaQRCueIRTsXR5 mJ2xhtNnsJr2knRgBGFqsTNq dHJwYWRkZmwzXHRycGFkZGwx MDVcdHJwYWRkZnIzXHRycGFk ZHIxMDVcdHJwYWRkZmIzXGNs YnJkcnRcYnJkcnNcYnJkcncx MFxjbGJyZHJsXGJyZHJzXGJy ATJ0ZHNsW2eonuFjdbwqjiAo g8jenaGkvjGkRFGqWsQsryIj YnJkcnNcYnJkcncxMFxjbHZl pxWmiMPsF8smwLDPxNJ0zMFp O6z4J9yfoVjiYbY4ZTYefAm7 DoflEVcquQUzYWN6WRLlARLb SJFuXMU3RHHwW9pwlfRsjNor idUdw5qhswPvxwHcOCExPlZy cnJcYnJkcnNcYnJkcncxMFxj bGJyZHJiXGJyZHJzXGJyZHJ3 IINoJ1i3BLD8HGv3URFcNrWl L0dwxRtmEXRke7ytFJJrGjZv DSPlsPv8Atl0XJyekWFxJNO0 SAOxYDLlCDFgKYR3WXFhF4eh ywOsuMbwazIlz1bcimPiotEc XGNsYnJkcnJcYnJkcnNcYnJk cncxMFxjbGJyZHJiXGJyZHJz CBBtZRV6CPGkX1p3YEA5JTx3 DWJmPyCiH7kyqQouWIEra3dx BMSjYes2WElgHMwfjAJdYdKy HHNknaTqkZ66KuopGFyewOec eRiyCFadkfJnwK3qNzhsISnn HDWfuwDueM61MzdlI0VfjJlu DCCdIJofvJVcRJIcv6HnJ1X6 ZBKkUJuxl9twEKWvLYmjf0Pp OVgUQNWNTN4RGN5yvXS7TSxL ATLJF8uWoIZ5LgD4wWh0WB95 SXMcZPOftGBjHIgmP492Qi07 BFqxTC91oCQtROGkp6lqxGKx BJbeLhspoFGvpzK2SReOAMFN MEmJDtIwCW2wTUiJN3PPXyP1 XkaxQtB5MKl5yImfNvuryqTt aDMeCkMylJ0skSwvgJ1sWqGt YFjaAVzjVGsxnYQpLQQhj0q3 fb10BGwbyNylO7mgfIpJGX52 YWxcdHJwYWRkZnQzXHRycGFk UPQvX7a8aiZuPSBoSKV3OGXq qOXoHHHcX1j7wvLzQVJlRCV5 RZQtbAVvGYAnU3csdPQnSDA8 QLOgTQLxLRUcPFH1CSVeO3rh mxZvoPgcuxLib3qsvbAwyuGn XGNsYnJkcnJcYnJkcnNcYnJk cncxMFxjbGJyZHJiXGJyZHJz CERvSHI8FYPuZ0p1DKZ4GGf1 GITyWuZjL9nblWiqVYCxd5uc NZOoXcmwVBxbUVgkaRL8SYOu Y0mkkeKnaRivsyEbr1eyijXi dzEwXGNsYnJkcmxcYnJkcnNc YnJkcncxMFxjbGJyZHJyXGJy CIPqSVHcOSU3MRQbD1tthkXn QtmikcWxi5uylmRkgeKzURYc etJlqIJcwQabvNF4t3opJBIo H9pflMzTwYL7lOU9UCidYYyq yPC8KVIqF3xjilRtkOswphKw m8azbpRejpEgINCyMsEcfplu YnJkcnNcYnJkcncxMFxjbGJy UTPdGDPcPMQxNDJlNCU4JZSx W7dtgmWvCozdpmKej5httnAi dzEwXGNsdmVydGFsdFxjbGZ0 m6zyWOHnS9zwyHoWkLY1fBN3 ZLtoW8ZcuZuyOLa0UcioABWy MIgoqVQuZZO8rZIaiOd9ui9q AISqIRN8oIUyt1eenjgpA0Qk bFxwYXJkXGludGJsXGNlbGxc dTYfWVsgipNgnKxiov32JEA2 b0skhQNqWAzuLyjijDRxdrN6 CIjIEHAEPHkYYkUfIC5qQSiA A6XDWFrIDwqfTSVzQIvdFSnj EQ72GZKxZLFunMCrJQggB565 Vw96EOouOW62uGBwPGI0FPHo XLuew8tnGFRwVBcpv3HcJElG PPIXHC3BPP6ocLX0GFuBKSZD NOjlXLEvPBacLWswVS89GERw ZQMrfEBhCBvaF927YEYcUPvd STFfFjNyU7HxfYaydbNpjVke u6apjPMjx3SkPPQhD9raACFg YUMycNYkUQIucKSwZTM5K5s8 cnBhZGRmbDNcdHJwYWRkbDEw NQy2yxKfFCXgogDhzEWrZBNu vyHxNFp5tiXsAPFqQlUrC0mk fuXsaQpznrSkt3hwrmEwreIp XGNsYnJkcmxcYnJkcnNcYnJk cncxMFxjbGJyZHJyXGJyZHJz YOChUDU8NQUrB2xlhhFpCsxa lzBbt1qpbvBnnlKkGSCcglGs oEGipMpvpHZ4a0rpAJGnG8hh wAoEpBP7fIL4ISVmN0EzuVxh LrE0ZBOaBcVbseHwDlOfydLh YnJkcncxMFxjbGJyZHJsXGJy WJMjASQkVAT8SCMpG8mvcsOd ufjzgyImy5dbmwLyaiOzJTDz YnJkcmJcYnJkcnNcYnJkcncx VHqqgPJzkzRlsRDlU6xihTDV aUX5gRQmN9p5R7jxpAvbYIBv E2NpeDhlCPR6WJBjEcJiuvHd YnJkcnNcYnJkcncxMFxjbGJy ZYKvPNZqCCKtPYKjBNN1QADb C2mwqoSoxmqpkoAvd6ssyjUt dzEwXGNsYnJkcmJcYnJkcnNc YnJkcncxMFxjbHZlcnRhbHRc J0zzsSMLbPJ5tWBqA9l8X2br tIp2Zsp4MYToxYz3IWX6RXZf tXBlGMqxhbMeqWSDYGSqlT2d n4JdnSLcFwpaJCxqRWHikkBb pG56YvvaS4RnzWxtWGYrYYuw yKNmSHTor3RqN6K7WWYeHTab l6fqCFCkMPnfs7VrHShONKVE MN9IGX3obML8KXrBAHXHT2nD eLV9IxVgtQSpkLZboCptOmsd gjWskOZhNuGxnG9HoHnpdAFz E1ygeoOuWZvovGd9ERDfw3Hm L3OtE6mob96qj8thaEOzRIek IajkfEZqsqB4DPtSUXOXJTiJ QtPlMY0pOZxSJ7UWKsU7Ksno OyP2CMV5CDT5l7vlzNGhx1d8 XMmtCHF4cSqxnVCemkvekpPq OCNrkPnnnO18Ehituv29LACd k5vcZVLqnSBHhMX6yG0gcpVx zKe0qaXnBQPmsHLfxOAxDLIj ZmwzXHRycGFkZGwxMDVcdHJw YWRkZnIzXHRycGFkZHIxMDVc dHJwYWRkZmIzXGNsYnJkcnRc YnJkcnNcYnJkcncxMFxjbGJy DSUbHSWxANXsKLFvODE3TMGd H0ohwhGvysbplqAgt2yvyqBk dzEwXGNsYnJkcmJcYnJkcnNc YnJkcncxMFxjbHZlcnRhbHRc O1fdxNOUaWN6sKJiA1l1C2ux qDmjPfY0GVEqnRz2NcvfMFdx iYXdPYD8RKLaBHCyCOTxPGF6 NTUkU0rxesUuzEbopaCeb7wr cmRydzEwXGNsYnJkcnJcYnJk cnNcYnJkcncxMFxjbGJyZHJi ERAfEFQvZCAgGMN8DQNyV8y2 SGY4WIt7BNRwQwFuY0nfqHmr WVRxk6xrRUJgFqCtYEVbqFx6 Tew3UOxhhRYhCXU1QYHwUZNl HXCoVFI2LGJtV3ijlqYzjFhm lgWor3sscjSezdOzGQZyPyVo cnJcYnJkcnNcYnJkcncxMFxj bGJyZHJiXGJyZHJzXGJyZHJ3 JZRbN8k9NLK7PIv3GZNeLdOc N3enmOcoHNJdi6gkCRRsKhg6 OFxjZWxseDEwNzUyXHBhcmRc aR76YsntTvGahU6yIUtqeQnm rGgegx3yWYXtjOB3jXH7DATm bGxccGFyZFxpbnRibFxjZWxs VKKfgvIqeD91FrdzhNAlaXXw fZgwWdpanEW5YQkyHxxedL3y kIEXRTUENrePTozcusPlVH8Z ZZRMShFZPL56ArosBbS5KOL8 YGQ2u2ezzKAvf2q8KQebCVQ0 oKMceMHgMBxby49yuNUdsA3w cRUjy0YrlnZtMVwumWt1SBJs w2JxbVTcz2A2AGTiBPznc8fx KTTnINrss5WzENfNODBXCJ6S KV3scAY7PQtIQQFPLCllIYAs FqzkEzoiZn97HNXlBGUcsRXa KGesR174FYIvNZqeOKZjIxPt P5LknZohoyFhxEngl0iojZOm v0ZhSCGqR2dqCJQpZTLttLAa MJTpvGVyQYB9N9d5nlZwPMRm lSOtoHLoGHMcpMXnPBr2lnFl ZGRmcjNcdHJwYWRkcjEwNVx0 nhJfTTIwEkDhF3iiuePezRlz fpHcx3lifwJkbvYvVRCxLvCx cmxcYnJkcnNcYnJkcncxMFxj bGJyZHJyXGJyZHJzXGJyZHJ3 GAHxW7bkykFmQeuxlsNgm0db cmRydzEwXGNsdmVydGFsdFxj rHU9d9dhJQYfH5zwiEmYgMA0 rOS1IPViM7LcpAbgEsQ3JJSv YnJkcnRcYnJkcnNcYnJkcncx MFxjbGJyZHJsXGJyZHJzXGJy KZW7UUPqZ2lsbkUqkmutyhYg x5sdrhFyngImLNZwIrTdskNh YnJkcnNcYnJkcncxMFxjbHZl skBzrAUpH8cdfKIItCE1dXWj O6i3R8bnzUckSYZjC9DfyWja IDB4MWMuIfFwkjPmLsXugpSy YnJkcncxMFxjbGJyZHJsXGJy VBKbZMMtLXU4IDNuT6vkxfRl lgxohyEoa1ungtCmxrZwXMDg YnJkcmJcYnJkcnNcYnJkcncx DQaiyEYlhaRgoLPxY7jzjJFH nDL7fOQwC6z8X6fyvNa0Ilc2 QDOetDl5QAC7CVRhvGTaHDsg bkEqtQvroZJ4KCXGkO1wNDWd p4KhwCcopMceal5oYSYuw5l1 vEY7wC0fjbkzZ6GmhYcyZIPa XGludGJsXGNlbGxccGFyZFxp rkZndFyllu93PPS1t6bwlCMq CDwyEiefmSGztoY0FQfLDWTF SRtWMpCkXQ8eBVqSB0LQWHqR Slj4NgpcDCrpI3xvS249EGTe OLBnvCGvOKlqM775ULUbvXLL BASdAAqszy69SOC5ADgfCmzb tGQ4EBvcIvnnfZ8sjUIOJYAG IsfOGcxsfuJmIV3NHNnDRpUG IO21GUH4a2yzfXZtw4o1RYzb YFT6cTV9URWlIFhwe8dfVMCu INqdb0DlNIlGJNALUA1ZDS6e tYK1X9qJAUQJYIwxBU71EWJu RNLqpKXdFEwqD962NJSmQWtk IITwo1WoB3QgAjNgUNybbYnd J3nSXAZ5IHJiJNnzp2qkDCEm DVyev6EyENtFCSQBXB0FRR1w bZQ3HUpWTERWNRh7QddaESbu H7mhD460UKLiAWWemWTlBBrx I421LWZrBQzqVEYsAiIhP0Gk zEvebuCzlTjok2njoTEzw6Ti XFEjN5vxWWTdTZYufDTpIBJn vQHvMRS0B2r5kpUoOAPmyQNp rQKzROOszPVvRHv5ejYaQJWl smNunFVwVXFkuuTcYBp4bfZb JNMqDhPwT2yiemJulMewmsYq v5gkoxUubwKlQKCgJjLkoqgp YnJkcnNcYnJkcncxMFxjbGJy FSKmASKrTWCjPKTzFTO6LJJx H0mdsmLwDcwvvbOpl1wsihLd dzEwXGNsdmVydGFsdFxjbGZ0 x3syIJAuE8bvlQxJhWU6lKZ4 AFGfJ1KudGxjBjF1GUEkDpQq cnRcYnJkcnNcYnJkcncxMFxj bGJyZHJsXGJyZHJzXGJyZHJ3 HEPgI1oolnTurtvuisOhn8ll cmRydzEwXGNsYnJkcmJcYnJk cnNcYnJkcncxMFxjbHZlcnRh rMJzH8wkcWJUmVJ3wFMeY4h8 B6xvtLpxZMBrM8OlyHblHVZ3 XGNsYnJkcnRcYnJkcnNcYnJk cncxMFxjbGJyZHJsXGJyZHJz JAHtHOJ5PCBbK7jqdjWhnhaz muWss9xrpgUeweJtUDWsOnAz cmJcYnJkcnNcYnJkcncxMFxj wOGfesNzaUMuT0mbfFIWjTG6 rAGtY4j8L6qdnEr5Mra1HVUw jOd5ROS4CJXqvBNaVVjwlxBn hCfsrNC1XEBGv5NxeUOlXKUz hIYyeV31j1p0ASZ0MMutOAwb BNBeogNqkJ19ZslqF3LvhCgw QYEoUDgmyDXqTFVja5CbB6N3 SVNoECpkp2glURHuBYpxd2Oh TQmBDVDYGQ4ZXH8cqJN7EZcL XZKJV7bSvKEfVUW6qOK7cKT7 sBwzUfmcykLcgHTiCpSniX4j DUOsI6SWPLSjIUNdr8CdJ6Uk c4ayiKNjHYdlUdwwhHLgweH2 PQnHDPOVTSgNRnQjKD6iGQhL GMMNPXuEVhwrJl54DBVhDZLh iLFoECigB941Fs94OFTzoBjf G5NqeXO9LTNrFOxjl5tnKYJt YWcij4IvCQfCWENIJY6KFY7u hHQ6L6yLXMVEQXlqSx79CIEo JSHvtYLiXSszO039GLTyVNke TFPoc8XyK7QtSbGnLEdvcWhc M3fQPET6HKHmFOhrm5coVRWc KMwrq5GsLMgOSNZJIJ5AAW9g oJK8VNwGMQKLRNq4MVrfTRlq LLnzDE68CPSzBLElwYQuPIfx Q185TLUeLVlpUVQrJdUaY2Sv hOwvnaLpeSmlh5vbqYOsx6Dy QODkO9rzBGZnTIWbbJFnXHKp rMNyHUE8N4w0qvMpRIBpnNOk nTApMGAkxPFrXRy9oeNuFCHh evBkeDMiGEHhcpYmETl8miYe YQAmYoZhT2caloTdjCwfquHg s6uracNuhfYvNPErVmCfppdh YnJkcnNcYnJkcncxMFxjbGJy NBUoLEPwAWQoUMUnHCG6ENNb N4rnxzWaEgiyxbKyf5pbhqCk dzEwXGNsdmVydGFsdFxjbGZ0 v6wbMVDuT7jwzBfKnNI8zKG9 CZTrI2IlpNsrRvL8CHTcLjBf cnRcYnJkcnNcYnJkcncxMFxj bGJyZHJsXGJyZHJzXGJyZHJ3 XWYqF6sbmrSaxrxqqwLni7ia cmRydzEwXGNsYnJkcmJcYnJk cnNcYnJkcncxMFxjbHZlcnRh hYLyZ8upyNNUaNN2tVBcD0n7 A7idxFthJHAbY9HteCfpENB8 XGNsYnJkcnRcYnJkcnNcYnJk cncxMFxjbGJyZHJsXGJyZHJz AUQrRWR0DNTgY7wlikLenkqu loNlf6ngmmShidCuAMDrLqVk cmJcYnJkcnNcYnJkcncxMFxj dCRnqfHczPCcO0docCDVbQI8 bISdI9g5K8edbTz4Rwm7BZLp iLw8TJF6PPOdnIDtNTgevfAj iEkojXV1LMRSqRyoYY1zRPfl bkyyu8UxtXI8ZUC1CANvShBl GUQxg7r6GjecEEcxAMRpacOz kS83MfxvX6YahXjzNAYoBFtk qQUsMUPyr0KnM9K0XKInGNvj s8smWGMaFOlyw6WqBKzFXFCJ RX1ZAD9duRF6EOqIRBAAW4cR kOF0RbD4nGU2qFE7wVjyDpxw yhZfxHLsFxSgyV2Dl4RfKCOn dWdfPPSiEAdvZwzozBE6XEzu JanrbX8tnUVOMSJGUstYRosh cxGjEL3JWTIVSX4KlIE3UjA1 hYV1eGQ1lIojBkwqipLyvZEv FdUzgW3euJtasX8oDjVmIAtc BUzcKGpjwATcQGFdl5o3cy96 WMvosVcaC1fbtDiSFF88AYig dHJwYWRkZnQzXHRycGFkZGZs E0f2xqFwFNTqNWO3XLYpdUSw JSJeY4h9htAkYHOsZSR0DBTt bHVgNUBiB5muzZKvNKA9PEBv HBQjRFFfJNL1AIHaZ4pzjgBo yGsshkBuw3fvvpSejiOtKJZp YnJkcnJcYnJkcnNcYnJkcncx MFxjbGJyZHJiXGJyZHJzXGJy QUF7YOCwW2o8SHT4DPi5YDFr PzUnO2tuqPwbBBZfj6uzRIHl YzhzIAyeWAovoCT6VDDlV2py paLieXworqSdy8xmytHlqmXr XGNsYnJkcmxcYnJkcnNcYnJk cncxMFxjbGJyZHJyXGJyZHJz KCQkUEN5ZHZnN1vhcdMfJlav bmEfw8clxdZjdtIeIHAfvtVg lKOubMsbyQO7f5ghEXVqP6ws sFsZlHU1xGW7XCeeCInxqGY5 FEOkI8hljmYvpCtidqIsd1xx cmRydzEwXGNsYnJkcmxcYnJk cnNcYnJkcncxMFxjbGJyZHJy HBXcICRcYJAgLAV0ZYHoZ7rv wcDjSexxlkEeg1ixozVwzcBs LTTvskNrzGGnqWdsjXC6i6bv XSTtQ5gmbSgJtUH9fCH5DGqe U5CodJncODe9QxfrZIQdWKiq hJBnMXQtYkvkRYE9sNRrln5a XLizQLu4YR9obO2eMwivCYyw GOZoxiYkiC28JmtsS8VkhLpp WZKoADwifXMrKAAnu9YeD0X5 KDXfQGlgp3ybRYYcRYqar1Ut VPdQKIHRMW6RSY0hyOS8DGgE AEBHP8rMuNQ1EqT5aLW2nEH2 wKimTbiaiqRdyKDySlFbeS2U t0EnERNjzXuiKHMnNHdvWuak gIL7GGmqNpzkgA1guWRXIYSV IjwRRttsooCdTF9OWJXXAV6D uOJ7NcB0aZS1eIJ3oLohZvvs sdQubVElGqFyxU2joTplkZ5g ZnMyMFxjZWxsXGludGJsXHJv c0a3fc93HUwdgTvdL0mhvZaC TQ16JXqbpYRfGICeBzOiZBHm gROxKUXdH4l6umTcHQBbWGY1 JKEzcWSuPYXeL1q2nzUsWRAl WMJ2JJWhhDObOXDzU4pfcGHd DZJ4FTUmQTTaCUFfNLF9MYTy A7xygtRkqRxcicXjs9omawEc dzEwXGNsYnJkcnJcYnJkcnNc YnJkcncxMFxjbGJyZHJiXGJy VFDoWSCaZAD3KQXwQ6r7PAM0 LSt9FVXbVuTaA1pfvQbfLTQm w8fgLNFrXbdvBSxlMLmnqSW9 RWQtC2kyztDjxRosorHou7oo cmRydzEwXGNsYnJkcmxcYnJk cnNcYnJkcncxMFxjbGJyZHJy ORThEXIsDYEhZEY7YXGjX3sl hiNqOalbygIpf1raciBxplFp RYYrxmSaiWUlxHbfqIC4c4hq MMStW5dzpPbSvTX2cDP0PIds KRxgiTS0RVOsD1xsnuXyyGjb liOku3nouiQsczGjLRCjZfYb cmxcYnJkcnNcYnJkcncxMFxj bGJyZHJyXGJyZHJzXGJyZHJ3 YOMeV4ktqkRiGfrdwgJab9wt cmRydzEwXGNsdmVydGFsdFxj zMW5t9huJLIyP8ipcNpBkGG9 oHH6HJfyJ4ZviPkbYIj8Icev WHKzJKhntYZnEUShBktmEZ59 eJHpkqLhPgIfmX7nnGOay2No jjNjhPJgoQ5oTDugD3XbnHor YXJkXGludGJsXGNlbGxccGFy UGuidzShkZGdRHTzgRmivJ91 Fusgzg22UHNlw4ilGPOcfKFJ bEB4dB7kgjKpfMv5obQnRABi dDNcdHJwYWRkZmwzXHRycGFk ZGwxMDVcdHJwYWRkZnIzXHRy cGFkZHIxMDVcdHJwYWRkZmIz XGNsYnJkcnRcYnJkcnNcYnJk cncxMFxjbGJyZHJsXGJyZHJz RFNdGUA2XDNtR8wejeLgpywd qfGoz0vlqcOwqaExZSYaKiGl cmJcYnJkcnNcYnJkcncxMFxj gBRywbAnjLMkO5slaXDIqLT3 pWToO8j5A8wxzMzgYgR5ZDXw aCo7LoubMLqcuWExSBD0QCOm OAZtODSzDPG6OEWdG3jdotBu gUsjboKns6ygbcDarsOvAUAs YnJkcnJcYnJkcnNcYnJkcncx MFxjbGJyZHJiXGJyZHJzXGJy JPM0BFEvP5a3UVQ4COx4EKEj SaNzL2ravNyoZBXov3mmRZMm ZxRbOYLzqLa5Xub1IPvneLLh FEP9THXsASEzHLBnSUL1JRCl P3ylcqOwsIpxeiAro6qrlcFm dzEwXGNsYnJkcnJcYnJkcnNc YnJkcncxMFxjbGJyZHJiXGJy HJAdPUQaDKW4TVYjX3x5YWU6 NMd1RXIkQpIsR7hpjMjtJQTx c9fwKTWgLzr5NSgeIHadzIWu UgMmJINevlLxpR46BopjTrti YhDjEn3jYZynbCW7QLdzFSM3 RT8ezkTdEfbdAIsgCVBiveZm sF83HqdmW0WhwNatYUPkBZfv eNOcUXYez8PaQ0L5ZOCpMUko h6baCAKlNCwdj9BdUNdQFKLB AY5PDN4yaAK5MYpNLDJLQ6rF cCSjCDM0zWU9wWS3mBacJwfx voXxlIWiQjHzeD0jJTRqB1QY YOCcSIAfh3NiI9Czt0cktWNp ALocCownrRSroxQ2KOyGKMNL YPyIHqPzWX4fDEnEGTZXFNkS RmtnOV45AEVqSBGhwYPiFMcr N148T1Zytv74LDDlDSVbzCAj xVwhLLR3ZRNkVUjxb7btIUBa MMujr4RiBYdQZUEBRK6WOL5m vRN7C4yADDKFXHqaTJ82EBZe RWUmiGOrICgsK903QOXyMBek JBDcx6GeW4AoLdQiOSbpcFgs P2tEEJG1HHQsQTvgj9heSPOo ZEmnh4KwWXqCUBIXEL4BVX3z jWV3IGgUAKMBSZl2SWmzNEma VCrxKU59ACWgLEOodNSmMLuu H709XURtYRdaECHnIqGfN4Ur cHtiosCpoOzbh8sfrUUmu8Xj NJHxL3mfGEHaPBPzrUJgOSFa dDQnOZF0S2n0icQiWWPhsJXl fJAsUFWjjQHrVIm4dnLiWWFk fyIxyQBgFCRzmoSiHHt2suXd INDqFqMvZ5igxbEtdFcwlpWo m1hcgyDewdElQYNrIaWesynn YnJkcnNcYnJkcncxMFxjbGJy XQZbLJHhGVPwPQSdSYX0ANDv D3zyssXkMzwqjlVmq2zkzwMy dzEwXGNsdmVydGFsdFxjbGZ0 u8tgYSBfQ0npuKwEnYC6mKN5 SYSfU4GjcGalWgN9CQWfRgLo cnRcYnJkcnNcYnJkcncxMFxj bGJyZHJsXGJyZHJzXGJyZHJ3 TCAlL5ggvpEforraraYzl9ln cmRydzEwXGNsYnJkcmJcYnJk cnNcYnJkcncxMFxjbHZlcnRh mXWjU7vytJAZeHF5cSKfS0f8 V4fcrNjcPHBnN1EilDuvCWX1 XGNsYnJkcnRcYnJkcnNcYnJk cncxMFxjbGJyZHJsXGJyZHJz VXTnZMH7JBYuP9mawdPgkpaz njNdi4uxxaEtdkPkKLSiTjVr cmJcYnJkcnNcYnJkcncxMFxj pNLrbxSwiQSvN8ppoUAIiIY3 yXJjP5j8S4nbsJe3Vlj3JUXb kHv6MLL6WMCkqYKwUZqmcwRw aJNZbEP5ZE72MBLvmAMncpse hD12t7h2OVX1PMFmKEMwpEyz cGFyZFxpbnRibFxjZWxsXHBh wtUapZ50MpwylMTaeIZwoTdh EhfyiDG5JUnpJyqnmZ8jnBAZ YNKBWpfPKutqplQsPY2ODNSE GxLXXJ64ZIA4RvS8TpV5KiM3 r7ezpKUqq1a9NWqlRKD6yI1f dCBhcHBsaWNhYmxlIHtcZmll uEJ0QRuaEsaveB4ydHHFTCJZ YvdCJznhvgIoGW3XERWJGN3F mBCwYDX7aBUadDXkwGriKpga spEsaNXeVnLemM3cfKrriS6q ZnMyMFxjZWxsXGludGJsXHJv h6r7bf55NTrrhFmhX3hbsRkX BV89TKadrUXsmCZzw0y4vtHc ZGRmdDNcdHJwYWRkZmwzXHRy cGFkZGwxMDVcdHJwYWRkZnIz XHRycGFkZHIxMDVcdHJwYWRk ZmIzXGNsYnJkcnRcYnJkcnNc YnJkcncxMFxjbGJyZHJsXGJy BIHsPLOqIKV2PIBlO4gktwCd iakiefZnf6gwfqHhfuMiTYNo YnJkcmJcYnJkcnNcYnJkcncx HPfxiMKyyhHzlUQqE3vjiIOY sVQ5pXVvX2g1E3hvlYmqInQ5 EWLkzVt0EtpiDSnbuDYyLVA8 YDIyYQEkMBQlNMH8GMEtK1ts utLvmDvxptZae6xtjsGayuJm XGNsYnJkcnJcYnJkcnNcYnJk cncxMFxjbGJyZHJiXGJyZHJz VWDkEQI9DVWfZ9k8BSJ3IVi2 SLBwFfHmR0vubSmbLBAcr1db UQObDeOtQEAjaVr4Bgh4AFje gKRwVDQ6TSFpUQRwBKKcSDE3 HVAsX4cqyfYmrYvipoCle9ne cmRydzEwXGNsYnJkcnJcYnJk cnNcYnJkcncxMFxjbGJyZHJi WFQkTULhSLDqYSF9BOSvN9r4 OLA1HFp8PSIlGsJdS9yeaCey CWCqe1ynECTqTlu1IBxvZGli xVQcCsXoWKFyayBvoS11Yvp3 DCbwDvvuf5J0JZE5CZ1Nu7Vt T7u2o2ufUPQtaKfrfbLnX2ol SzBjs67tMtAXOsMRSVish8Jm XKNedPpqrs4alTCzjlR9MwPk YCJfyXwufxPhWUNtl4rrF5yh EWW6ZGkbTzdfVZwkUJUessCs rV69KybdVjJyU8ZftSsbQYGq DBccrOEsXKVbH9PiSZ8uMEsf oEScTBNvRAWriWGvT8A4gN3e OiBccHJvdGVjdHtcZmllbGR7 DWoaAqrtbS6hxYRWSKRZWvaY ApouarCnGE0FCUTOYnHJJB93 QKhhCVQ8FkT4MeA4q1ubyNYg n0b5WKghGKW9rU6lhOHmpKTx hUHlHvgla9jyxXGsFIccCgqk nTNkvuV4OTqCVXVWXNuXVbYg MB2fYMmBF4EQUcA2GBguTAI0 YyM3UeB1k5rewKWrf5t4WPka HJZ0cEntwWYwbsxwUPIqLpHy G0IfFNFjcrclDfXcfSKtiNVa aIRonJubKpkkhNZ5ISzxKypg hI4rlCIDVJQNGckHMqxhzcVf IR3IXIOVLvPZWZ72KuAwFlm5 ZdX1QoB5v7fydUEsa0t9POtk BYT9wQNgs9onpSAhKIupCeek bORshyM9XQtIWNCZJLhNMoAb II5cHZjTK4XEOfU8SlQkEic2 BdH7JqH2u6fodJXso5l3VQtf FFS7kRcbwXLcugwvAKOqWbRk TXZgEbgoxj65EES0m2pvsEPr AKsyBvhnzKPchmD4WLfIIHQM AEfIUqJhXN2oEFpQH4PRDVrX SxtlAyK3MPxuQBzjMS31FDBy ZESujPTgUAdiZ397EFM7ZCIg REegm1bqOUArMNnbd9IuRIoK RRNRDK1IMV9ybAY1AGbMGACB EFfuMpM8YZdcZZljSQ65MYFv TMAhqLXhXUriP436SYJxIIgw XGJcZnMyMCAsIFxwYXJccGFy CXrkaaBxlAAmPJvxqz62XSW4 a8dymRQpJXeaCvsonYDkikB9 IFwEQTDLNBdVHvIiDI4zGLqU L8YJQPoFBrf9OExdE5ytNCyj CW23TRPwFHDznEYnXWnaJ448 IJPohd9noHEnGILuLCSuca7g njIiJGXip75ntSyrERH8Pj6v iZRkCJUgeOZjmN8oncyeRXuu PukmgWL9RFwzZiscxW9ghWVJ TKTEGykIInzapeAoNB8BGDLJ PW9FoKSxLJV7dXU0jKF2pZkf PmxfejOnyPPdYpKlmB6wtFap wZ2xWtarsxXwIKVkX1PgwSwv qbQurNmtv5fspUNaFAbeSNFz HZ0qFUfofz54GVL5u5aguKQe BQwzYikbqETwnqR6BIsPUIVL QXjTMpWoQN8tCYqDA8EFTZyB LunuVWM5WMigDhjlPr65DSGr YCZtaAPmKDckV937NSn1lg6l QPpmmN67HPdkgHs0vj2uRILb pX1prIa4ISElBXqye1eeVQDp TTdci7LaMEdCZKHONQ8AVZ9r tUH1WKqQCVXRILzyPCO5JPwa KtxoSk81XDYbGSHlaOKcUWri R157FHNaUTyuNUXpTmOdOVyt KXQvvOtlSGxhKNNkFCM9RBtd lQ1aSFtaVLhjYHwuiXVpRWed bGFpblxmczIwIFBhcGlsbGFy wJL3rUqyz6cqGSJqehAwor0o NSNwJE40XMVvDXraZ4zzh4Si IdL3xPInMPKsqZhtrOC2iJol w2ygNAhjOnBqBTTGMDKiq4fs e3V0xWOnrdAih2Q7ZiftIKYy XFChrq1vDIPeaMXhvy9ysNdo AplyZXKqJ9tkdhpowgWmm75q hZZ6NH62UWbmyAncsXXddzrk iVOeYccnrHP0TSPlfWShDJCr atTNqtNarQ9oIH3aszwvQviv OAd5nXRpGO6jGJZrNBFeUZvr VBKpqgrcWPYhCXCtczw8CGTW XBJBVWzWFZ6WAUEDNRFQWJ7R RUdJTiAyOTMxOHwxPTJfMjkz DAq9Xo9sBjO6IjJcyVU0QB81 TUN1H9z7HVRhTYvfBTH3KK4k GjQ6Uki3jGF8TR44BTM8UEx6 GPFvDlxlSzZ0SB9gXuS9OtT7 ySu7WJ7xYIZgCZyfUM8xZuX6 IkJhkQKfPUKtAosrLbV3MEV4 SC27GpqcVImeMm7aItnkLA00 WSjtCSamWQ6gZda0WDAgFumk Yxk0SOu0HB1tCGQuSGewYS1l VfXpIJQ0wQH3KOGgYvskIP15 PXmmJdeuVV0cQmZ0MVfnpPEi BSEeUuKvXqo3UuA4V07wKrO8 KFkkRO1uNpLdJMV0vIA4EXFv NbQkVIQ3TyC0SKSoKPBUIHGN KPuJJR8DPLZYXRVBVW3YSfJp C3jOWXWSHeReMVXUMAJRMGGj OuAZHK3lUBAdrcBpdHH6NXcW u3WxQKUrfInrLQOvVUw5PmFy x6Rhwe1tvNOxPTLdBVGxha0f hnWlK7gIUMVAKdDnIWVVENWE HDYbPE0MWWZPQOBSVX3WXTAD A82OCSXMXQDJY7LZB4vCDBEo g6AqzUT7BxdfDLomcIImp1Ta mIT8NwsnHYifjOGtp7FvtNW9 AfzeRdAegHOxq2IirZTnLOz6 QYJ2X7x4UQx2pJk7LmI4LKey JMVqlZUon3DenWX8JlK5Ehy4 HG07RYq0oLpsFjl9JGB2JYq2 UTd4lDg9EfhbTAMbA0b0FTe9 lOt1SSgsCNBuJPc3GYOyh8Oc cTn0NewhTjIctPDcGOb5tNy4 IlX7VvXgST3vXjk6tAk6KUF0 EzmlZuGhvSAkWOr8fKagFUC2 ZMS6UfEswMC8MIg7tBooRCM5 JOS2RvQahXB8SKh6lEqnYDar FWKvO8b7KCuei8JmcDTtKfL2 CkX7RV3lZRu9jOd7GVHqLwIt TMP7LX0hBXv0bLr0KlW7HCS3 PfGldCXkBRjTCro9WYU3MQj6 XcRtg4TduGOnUwNgYgA6XH0b EUm0oEo0IZL7GrKoFkkpmCZ0 YVc7wNoiKYx1UBbxT8v0BzYd z2JGeSKhvLI5DaGgQKMyzXMH XWPVFQlPWRZJJp5KJLMHFZQP VL0ROgAwA1JMXP1VPd8PUPFA BVFMIP7ZFVdEBlQhW2HOKW0Q Pc8JXTATNEVDJF8ZVvBePXJN W3ILQdVQK4tqWZJFVHMSKHXi SlBIKM6sZSTBIO1XHNZCNJCG Q48CHXGGZPSDB0XMAV8= [facility] Work Phone: Pathology report gross observation Narrative s6gsaSMkYDXgkTRqMEHeT2av blRtJHMygFQeL5CazfchFDyu WW7hOP7xaTjawGOwgDTtEDRu GjNlq3pwi007pOBdk0vuALES xignoAc0gVbqU39bo9Q1Lgqf J5dbZNAnJOlaUSAsOYjheMSl OEy0HNGlqPAhguJlOrJlOXPg eRNkxFF1VAZvPB2psoiaIWum GBgtBHQbezY7PFClgTJxV3Wp LUNhGF4dqibySTZ2BZxyLWVs EUY4NwPjZWBcx2Ftxrw1GkGe gVb0u5xcVMWqWDGakGbmk0bn RHA2TXUjnGRwL4ndvT3nHDHl IX7jpfpve5jyWJpoRExiUDTj tXY9coM0NFHwpKAyP2OfkA3a EQEqAOQnhaVniDusyK8xYaFx XTzwRhJuFjRrIWe1YDWeQdFo u7yqbYMdWEkxPZKalJw8oy6u ELBxsMGfJHJ7s1QbeLL6jGeh v8opGeKdNFpvCYNvI9s5HODs dTEzsYNfcH4aGICeCFZxnCMt noR0TPoxWF52WAvtUv75OOJt QmBcMYfgUKzzEiYjkSj4xe0x XAMph6NpDD6tZPU6udCeLRZu zUEbQqNxdETeNbFzW52dXNLV pWWsxGD4rH58jlPmILPjaSMx raGeGZjeRpV9KKUkFHLryE8c IFRoZSBvdXRlciBzdXJmYWNl FP6zATVwRQI7kJqdf8okPScc SQSmhfyzzhCmb1eumwCaLYPn QFHpxIXjim38ijKlxgVmw71i z3JuTyKbCFjgdzCuyWXuKHBm xOK4hBOssw3krVzhASerQZOs ZHIsiBuugST0mKbfj8eiCHek ZhCpKQIWlHXoo8C9VQJwk5Tv ZmFjZSBpcyBpbmtlZCBibHVl CrDfF02ln4MmiTejwhycJxK1 aHJvdWdoIHRoZSByaWdodCB0 eMngf1nhPSG0iMJxFZKzxyPz NSgqgCbvT3zxC2Msv1JtiUJq YWFyfIX8bRXzik6kjGsxDFsv aWNoIGRyYWlucyByZWRkaXNo BDJgo8fzNPPugZqnLxTqCVhi drAom1A1hCTxhSWih8ZqJLLc IL94RWRnVEseAAhxZTH9OUF9 SUXacKVvz6zntsSudfFymCJf A47xLoucMLHyjP0vwVfuMOVh mFJwyDAxMLBUk2PbhMNpuoKg mjLvnwXiv1A7OFtpPGDwGX6g DUMmxUMic6LtyZO5eENsYHRt H7Aqq31uYY5fLAWtMSSblKD8 tWJnfn6kbRarQERfGDHtrDEb oOT4IVNeCf8fBKRcf5ntgfEj PEZ7pR4nIOF7GY6jsJ5uWvar P2hkPTHxTCDaHXQSEd1aBLRt LPWuHM0euC0mEXIdi2IzpWqt QPAvL4j5ZBPsjYEyyYYerU8r OEObbgR4qTSkEVKytRIzqCrs d4UpwJw9gYWaYROgq50oz0Jp WICke9NxfE4xbV7jWBNpg7Mp eT7dQvqlH6wfVZPhROVspv96 R6huWGY4GyKfPStyKVwkIhDp kE3tTIRgqcUeYERtKItrzDEk IKP4hY5wTXWcBG6tZPGwhJSz dQmii6NtcQi4tLKcNGJcx0Wk luGERLBycCqdt5QppQFGCvJp aY20bZ1kEYErf20wi7DmCDMv f9BfsS0fkP1zAIWvz6TeWWUE zDDwcPJ8vG38taMikoXlBLR9 rS6nWKTvRP2uCUXccVQioVpb q5ZzsFn7xVDmUTjdGARsb6Je UXNyGC7tqSQvZJOyhyCRO4vd HSIbnTEwGUPYwz1yutUwbUVb jE9rgVnwuqWmJUFcf7RnRKXb SZU8RK9dvnEvlAUrDHJTe3Ok dBZarVJeXKIqJFKZeMYuu81r azDZgzKfeDQiFLYgo5GdWOsv XZMZWCH0RIqpV3fsKRA3 [facility] Work Phone: Pathology report microscopic observation Narrative Other stain q7wwqKYtRJObzCDyYeAxKUKl YUPaj9ysEVDyzAYoWiPwTsUi OmNcMieydAUlAMGcAjKyx1zs u709fBKkx4rdWOZgDuM2wMFt ACAfaVHvQ171EOIoBCral5tc l1OvZTNbqWUsl2F4WJQCvycg zSp1bWgpD36qd2A6YyqlO9pg JQWzRGCiR9FsQK5iWXTtEtd1 GKL0VND8CFAvLKDdD0BmSM0a ZZLwjPReLLb4h0hbnErjUQTl HEY9w6uhWMzxtpNfXI2uyf2g gQk7v8fozqYzHHWlYYBapFCQ ONDqK3IlgKoxMv2tiZi3fYvj KufaXKV8Gvg7HD9luz59gpf3 jIadVOKvipgyEgP4YFdhGAAg eepzBMl3GHjiYCDshDI6SLVl iDVfQ8KaWQLnXC3vhcv4UIX3 ZUecUMZkNgS8GZQtjTWtXWNc fZajDTnea494AMI3KtQqXN1q H3Fde2U1hY7vfNXsYLNohSXi PpPmZTVjxv4veTCgNDsfc9Ea QPS7svP4nQNnlQFoKAHqAF04 Xpstw9WsQvudOTM0OWEaiuEy v1Slh6hzDjDiucSzZ3jfX8Hs YSSmZUKrTPAxXvWcwvErn8Ud h5XefBTtmXz0l0feWYHqFMMv vKulh1fwBSV9HMRgQ7E4eQOg w0xzUJmeVWGuqLM1gaE6YNKv sPJdI0UmxV1rESDmXU2hkfx7 r8ihXSI1RCecOIWqYrD2etE3 PPDmaJJfDZCvyVtdVQffh516 LFZ7JjYfLJWvg3GdB4QilPnj R61bbLprD89sCYBwhDyilD2y jMnuwK9zApSlAbDwSBcbkHwl bGFpblxmMVxmczIwXGxhbmcx NQSwZVtdK7hnFyDnLJOknZmx KXdlg3YdNTNgCQKqMsYsQIhw kf4vS28hlYBrQAzyoDuvIROg g02rrBWntELoQw1teJUaYwzh YXJ9 [facility] Work Phone: [facility] Work Phone: [facility] Verificationon 024 ABO and Rh group Nom (Bld) Blood group O Rh(D) positive [facility] ABO and Rh group Nom (Bld) ABO/Rh Verification [facility] Comment on above: Patient's ABO/Rh is verified. [facility] Blood type and Indirect anti body screen panel (Bld)on 01-01-2024 ABO and Rh group Nom (Bld) Blood group O Rh(D) positive [facility] Blood group antibody screen Ql Negative [facility] Specimen Expires 01/04/2024 23:[address] [facility] CBC panel Auto (Bld)on 01-01 Erythrocyte distribution width (RBC) [Entitic vol] 13.2 % 11.6 - 14.8 % [facility] Hematocrit (Bld) [Volume fraction] 35.1 % Low 36.0 - 46.0 % [facility] Hemoglobin (Bld) [Mass/Vol] 11.4 g/dL Low 12.0 - 16.0 g/dL [facility] Interpretation and review of laboratory results Abnormal [facility] MCH (RBC) [Entitic mass] 31.5 pg 26.0 - 34.0 pg [facility] MCHC (RBC) [Mass/Vol] 32.5 g/dL 31.0 - 37.0 g/dL [facility] MCV (RBC) [Entitic vol] 97.0 fL 80.0 - 100.0 fL [facility] Nucleated RBC (Bld) [#/Vol] 0.00 10*3/uL [facility] Nucleated RBC/100 WBC (Bld) [Ratio] 0.0 % [facility] Platelet mean volume (Bld) [Entitic vol] 9.6 fL 9.4 - 12.4 fL [facility] Platelets (Bld) [#/Vol] 291 10*3/uL [facility] RBC (Bld) [#/Vol] 3.62 10*6/uL Low [facility] ealt WBC (Bld) [#/Vol] 11.85 10*3/uL High [facility] Calcium Levelon 01-01-2024 Calcium [Mass/Vol] 8.1 mg/dL Low 8.4 - 10. 2 mg/dL [facility] Calcium [Mass/Vol] 7.9 mg/dL Low 8.4 - 10. 2 mg/dL [facility] Calcium [Mass/Vol] 7.5 mg/dL Low 8.4 - 10. 2 mg/dL [facility] Calcium [Mass/Vol]on Interpretation and review of laboratory results Abnormal [facility] Interpretation and review of laboratory results Abnormal [facility] Interpretation and review of laboratory results Abnormal [facility] Calcium Levelon 12-31-2023 Calcium [Mass/Vol] 7.8 mg/dL Low 8.4 - 10. 2 mg/dL [facility] Calcium [Mass/Vol] 8.4 mg/dL 8.4 - 10. 2 mg/dL [facility] Calcium [Mass/Vol]on Interpretation and review of laboratory results Abnormal [facility] Interpretation and review of laboratory results Normal [facility] ECG 12 Leadon 12-31-2023 Atrial Rate 93 BPM [facility] P [place] 79 degrees [facility] P-R Interval 154 ms [facility] Q-T Interval 372 ms [facility] QRS Duration 84 ms [facility] QTC Calculation (Bezet) 462 ms [facility] R [place] 40 degrees [facility] T [place] 54 degrees [facility] Ventricular Rate 93 BPM [facility] th Normal sinus rhythm Normal ECG Confirmed by JANELLE MALIK MD ([id number]) on 12/31/2023 11:19:18 AM MUSE [facility] EKGon 12-31-2023 [facility] HCG ( test) Ql (U)o n 12-31-2023 Beta HCG ( test) Ql (U) Dilute urine specimens, as indicated by a low specific gravity (<1.010) may not contain medical collections representative levels of hCG. If is still suspected, a serum test or repeat urine test using a first morning urine specimen should be considered. [facility] Interpretation and review of laboratory results Normal [facility] POC , Urineon 12-31 HCG ( test) Ql (U) Negative Negative [facility] Basic metabolic 2000 panelon 12-15-2023 Anion gap [Moles/Vol] 11 mmol/L 10 - 2 0 mmol/L [facility] Calcium [Mass/Vol] 9.0 mg/dL 8.4 - 10. 2 mg/dL [facility] Chloride [Moles/Vol] 107 mmol/L 98 - 10 8 mmol/L [facility] Creatinine [Mass/Vol] 0.66 mg/dL 0.40 - 1.10 mg/dL [facility] GFR/1.73 sq M.predicted CKD-EPI (S/P/Bld) [Vol rate/Area] 120 - PINF [facility] Comment on above: Estimated GFR was ca lculated using the 2020 CKD-EPI creatinine equation. Glucose [Mass/Vol] 95 mg/dL 65 - 99 mg/dL [facility] HCO3 [Moles/Vol] 23 mmol/L 21 - 32 mmol/L [facility] Interpretation and review of laboratory results Abnormal [facility] Potassium [Moles/Vol] 4.0 mmol/L 3.5 - 5.1 mmol/L [facility] Sodium [Moles/Vol] 137 mmol/L 135 - 145 mmol/L [facility] Urea nitrogen [Mass/Vol] 19 mg/dL 8 - 25 mg/dL [facility] Urea nitrogen/Creatinine [Mass ratio] 28.8 mg/mg High 10.0 - 20.[address] [facility] Laborator y Services has implemented the eGFR calculation approach that does not have a coefficient for race that conforms to the NKF-ASN Task Force Recommendations. [facility] TSH DL <= 0.005 mIU/L Qnon 0 12-15-2023 Interpretation and review of laboratory results Normal [facility] TSH Qn 0.35 m[IU]/L [facility] Bacteria identifiedon 2022 Bacteria identified Cx Nom (U) Test: Urine Culture Specimen Source: Clean Catch/Voided Specimen Type: Urine Specimen Date: 09/19/2023 5:58 PM Result Date: 09/21/2023 11:12 AM Result Status: Final result Abnormal: No Resulting Lab: [facility] [id number] [place] [address] CULTURE No significant growth Normal [facility] Comment on above: Performed By: #### 6 30-4 #### NICK Loredo ([id number]) [facility] ([facility]) [address] [place] [address] C. trachomatis and N. gonorr hoeae DNA JEFFRY+probe Nom (Unsp spec)on 09-19-2023 C. trachomatis rRNA JEFFRY+probe Ql (Unsp spec) Not detected Normal Not Detected [facility] Comment on above: Performed By: #### 3 [id number] #### PAUL SCHMID ([id number]) [facility] ([facility]) [address] [place] [address] N. gonorrhoeae DNA Probe+sig amp Ql (Unsp spec) Not detected Normal Not Detected [facility] Comment on above: Performed By: #### 3 [id number] #### PAUL SCHMID ([id number]) [facility] ([facility]) [address] [place] [address] HCG ( test) IA.rapi d Ql (U)on 09-19-2023 HCG ( test) Ql (U) Negative Normal NEGATIVE [facility] Comment on above: Performed By: #### 8 [id number] #### PAUL SCHMID ([id number]) [facility] ([facility]) [address] [place] [address] Urinalysis complete W Reflex Culture panel (U)on 09-19-2023 Appearance (U) Hazy Normal Clear [facility] Comment on above: Performed By: #### 5 [id number] #### PAUL SCHMID ([id number]) [facility] ([facility]) [address] [place] [address] Bilirubin (U) [Mass/Vol] Negative Normal NEGATIVE [facility] Comment on above: Performed By: #### 5 [id number] #### PAUL SCHMID ([id number]) [facility] ([facility]) [address] [place] [address] Color (U) Yellow Normal Straw, Yellow [facility] Comment on above: Performed By: #### 5 [id number] #### PAUL SCHMID ([id number]) [facility] ([facility]) [address] [place] [address] Glucose Auto test strip (U) [Mass/Vol] Negative Normal NEGATIVE [facility] Comment on above: Performed By: #### 5 [id number] #### PAUL SCHMID ([id number]) [facility] LAB ([facility]) [address] [place] [address] Ketones (U) [Mass/Vol] Negative Normal NEGATIVE [facility] on above: Performed By: #### 5 8077-9 #### PAUL SCHMID ([id number]) [facility] ([facility]) [address] [place] [address] 10908 Leukocyte esterase Auto test strip Ql (U) LARGE (3+) Abnormal NEGATIVE [facility] Comment on above: Performed By: #### 5 8077-9 #### PAUL SCHMID ([id number]) [facility] ([facility]) [address] [place] [address] 21042 Nitrite Auto test strip Ql (U) Negative Normal NEGATIVE [facility] Comment on above: Performed By: #### 5 8077-9 #### PAUL SCHMID ([id number]) [facility] ([facility]) [address] [place] [address] pH (U) 6.0 [pH] Normal 5.0, 5.5, 6.0, 6.5, 7.0, 7.5, 8.0 [facility] Comment on above: Performed By: #### 5 8077-9 #### PAUL SCHMID ([id number]) [facility] ([facility]) [address] [place] [address] 06809 Protein (U) [Mass/Vol] 30 (1+) Normal NEGATIVE [facility] Comment on above: Performed By: #### 5 8077-9 #### PAUL SCHMID ([id number]) [facility] ([facility]) [address] [place] [address] 05618 RBC (U) [#/Vol] Negative Normal NEGATIVE [facility] Comment on above: Performed By: #### 5 8077-9 #### PAUL SHCMID ([id number]) [facility] ([facility]) [address] [place] [address] 06304 Specific gravity (U) [Rel density] 1.023 Normal 1.005-1.035 [facility] Comment on above: Performed By: #### 5 8077-9 #### PAUL SCHMID ([id number]) [facility] ([facility]) [address] [place] [address] 92424 Urobilinogen (U) [Mass/Vol] mg/dL Normal <2.0 [facility] Comment on above: Performed By: #### 5 8077-9 #### PAUL SCHMID ([id number]) [facility] ([facility]) [address] [place] [address] Urinalysis microscopic panel Auto Ql (U)on 09-19-2023 Epithelial cells.squamous Auto (Urine sed) [#/Area] 1-9 (SPARSE) Normal Reference range not established. [facility] Comment on above: Performed By: #### 5 3315-8 #### PAUL SCHMID ([id number]) [facility] ([facility]) [address] [place] [address] Leukocyte clumps Auto (Urine sed) [#/Area] OCCASIONAL Normal Reference range not established. [facility] Comment on above: Performed By: #### 5 3315-8 #### PAUL SCHMID ([id number]) [facility] ([facility]) [address] [place] [address] RBC Auto (Urine sed) [#/Area] 6-10 Abnormal NONE, 1-2, 3-5 [facility] Comment on above: Performed By: #### 5 3315-8 #### PAUL SCHMID ([id number]) [facility] ([facility]) [address] [place] [address] WBC Auto (Urine sed) [#/Area] >50 Abnormal 1-5, NONE [facility] Comment on above: Performed By: #### 5 3315-8 #### PAUL SCHMID ([id number]) [facility] ([facility]) [address] [place] [address] US DOPPLER CAROTIDon 023 US DOPPLER CAROTID Patient Info Name: TONI JACOBSON Age: 33 years : 1990 Gender: Female Exam Date: 09/02/2023 3:56 PM Patient Status: Outpatient Panel Beater: Flori Sanchez, SUKHWINDER, RDCS, RDMS, RVT Referring Physician: HECTOR CERNA ; Indications R93.8 - Abnormal findings on diagnostic imaging of other specified body structures I77.9 - Carotid artery disorder Procedure Description 10279 Duplex examination using B-mode, color and spectral Doppler of extracranial arteries; complete bilateral study. NASCET criteria is used when performing imaging correlation with carotid duplex interpretation. Conclusions * Right. * Normal duplex examination of the right internal carotid artery. * No evidence of hemodynamically significant stenosis in the right common carotid, external carotid and subclavian arteries. * Right vertebral artery is patent with antegrade flow. * Left. * Less than 50% stenosis in the left internal carotid artery. * No evidence of hemodynamically significant stenosis in the left common carotid, external carotid and subclavian arteries. * Left vertebral artery is patent with antegrade flow. Recommendations * Based upon this study, Advanced Carotid Imaging does not appear to be warranted. Clinical correlation advised. Measurements Name Value Right PSV Right Prox CCA PSV 97 cm/s Right Mid CCA PSV 86 cm/s Right Distal CCA PSV 83 cm/s Right Prox ICA PSV 70 cm/s Right Mid ICA PSV 125 cm/s Right Distal ICA PSV 108 cm/s Right ECA PSV 73 cm/s Right Vert PSV 28 cm/s BC PSV 96 cm/s Right Prox SCA PSV 111 cm/s Rt ICA/CCA Ratio 0.8 Measurements Name Value Right EDV Right Prox CCA EDV 25 cm/s Right Mid CCA EDV 30 cm/s Right Distal CCA EDV 31 cm/s Right Prox ICA EDV 31 cm/s Right Mid ICA EDV 56 cm/s Right Distal ICA EDV 50 cm/s Right ECA EDV 18 cm/s Right Vert EDV 10 cm/s BC EDV 22 cm/s Right Prox SCA EDV 8 cm/s Measurements Name Value Left PSV Left Prox CCA PSV 80 cm/s Left Mid CCA PSV 74 cm/s Left Distal CCA PSV 70 cm/s Left Prox ICA PSV 127 cm/s Left Mid ICA PSV 104 cm/s Left Distal ICA PSV 93 cm/s Left ECA PSV 61 cm/s Left Vert PSV 51 cm/s Left Prox SCA PSV 106 cm/s Lt ICA/CCA Ratio 1.8 Measurements Name Value Left EDV Left Prox CCA EDV 21 cm/s Left Mid CCA EDV 23 cm/s Left Distal CCA EDV 24 cm/s Left Prox ICA EDV 46 cm/s Left Mid ICA EDV 54 cm/s Left Distal ICA EDV 50 cm/s Left ECA EDV 15 cm/s Left Vert EDV 25 cm/s Left Prox SCA EDV 12 cm/s Right Findings * No plaque noted in the right common carotid artery. * No plaque noted in the right internal carotid artery. * No plaque noted in the right external carotid artery. Left Findings * No plaque noted in the left common carotid artery. * No plaque noted in the left internal carotid artery. * No plaque noted in the left external carotid artery. Risk Factors Abnormal CT scan. . Report Signatures Finalized by NICOLE Raymond DO on 09/03/2023 08:57 AM [facility] US DOPPLER CAROTIDon 023 US DOPPLER CAROTID Patient Info Name: TONI JACOBSON Age: 33 years : 1990 Gender: Female Exam Date: 09/02/2023 3:56 PM Patient Status: Outpatient Panel Beater: Flori Sanchez, SUKHWINDER, RDCS, RDMS, RVT Referring Physician: HECTOR CERNA ; Indications R93.8 - Abnormal findings on diagnostic imaging of other specified body structures I77.9 - Carotid artery disorder Procedure Description 76364 Duplex examination using B-mode, color and spectral Doppler of extracranial arteries; complete bilateral study. NASCET criteria is used when performing imaging correlation with carotid duplex interpretation. Conclusions * Right. * Normal duplex examination of the right internal carotid artery. * No evidence of hemodynamically significant stenosis in the right common carotid, external carotid and subclavian arteries. * Right vertebral artery is patent with antegrade flow. * Left. * Less than 50% stenosis in the left internal carotid artery. * No evidence of hemodynamically significant stenosis in the left common carotid, external carotid and subclavian arteries. * Left vertebral artery is patent with antegrade flow. Recommendations * Based upon this study, Advanced Carotid Imaging does not appear to be warranted. Clinical correlation advised. Measurements Name Value Right PSV Right Prox CCA PSV 97 cm/s Right Mid CCA PSV 86 cm/s Right Distal CCA PSV 83 cm/s Right Prox ICA PSV 70 cm/s Right Mid ICA PSV 125 cm/s Right Distal ICA PSV 108 cm/s Right ECA PSV 73 cm/s Right Vert PSV 28 cm/s BC PSV 96 cm/s Right Prox SCA PSV 111 cm/s Rt ICA/CCA Ratio 0.8 Measurements Name Value Right EDV Right Prox CCA EDV 25 cm/s Right Mid CCA EDV 30 cm/s Right Distal CCA EDV 31 cm/s Right Prox ICA EDV 31 cm/s Right Mid ICA EDV 56 cm/s Right Distal ICA EDV 50 cm/s Right ECA EDV 18 cm/s Right Vert EDV 10 cm/s BC EDV 22 cm/s Right Prox SCA EDV 8 cm/s Measurements Name Value Left PSV Left Prox CCA PSV 80 cm/s Left Mid CCA PSV 74 cm/s Left Distal CCA PSV 70 cm/s Left Prox ICA PSV 127 cm/s Left Mid ICA PSV 104 cm/s Left Distal ICA PSV 93 cm/s Left ECA PSV 61 cm/s Left Vert PSV 51 cm/s Left Prox SCA PSV 106 cm/s Lt ICA/CCA Ratio 1.8 Measurements Name Value Left EDV Left Prox CCA EDV 21 cm/s Left Mid CCA EDV 23 cm/s Left Distal CCA EDV 24 cm/s Left Prox ICA EDV 46 cm/s Left Mid ICA EDV 54 cm/s Left Distal ICA EDV 50 cm/s Left ECA EDV 15 cm/s Left Vert EDV 25 cm/s Left Prox SCA EDV 12 cm/s Right Findings * No plaque noted in the right common carotid artery. * No plaque noted in the right internal carotid artery. * No plaque noted in the right external carotid artery. Left Findings * No plaque noted in the left common carotid artery. * No plaque noted in the left internal carotid artery. * No plaque noted in the left external carotid artery. Risk Factors Abnormal CT scan. . Report Signatures Finalized by NICOLE Raymond DO on 09/03/2023 08:57 AM Dictated by: MARLY CHILDRESS III on FriSep 03, 2023 8:58:35 AM EDT Transcribed by: MARLY CHILDRESS III on FriSep 03, 2023 8:58:35 AM EDT Finalized by: MARLY CHILDRESS III on FriSep 03, 2023 8:58:35 AM EDT Normal [facility] US SOFT TISSUE NECK OR HEADo n 09-02-2023 US SOFT TISSUE NECK OR HEAD EXAMINATION: US SOFT TISSUE NECK OR HEAD HISTORY: ORDERING SYSTEM PROVIDED HISTORY: thyroid mass, TECHNOLOGIST PROVIDED HISTORY: Illness/Other Reason for exam: Goiter Cancer History: Unknown Surgery, RadiationHistory: unknown Encounter Type: Initial Additional signs and symptoms: no ORDERING SYSTEM PROVIDED DIAGNOSIS CODES: E04.9 Goiter COMPARISON: No prior studies, except there is a CT of the chest that is reviewed of 06/09/2019. TECHNIQUE: Puente-scale imaging of the thyroid is done along with a few selected color Doppler images. FINDINGS: Examination of the thyroid is showing overall measurements of the right thyroid lobe are 6.9 x 4.0 x 3.7 cm. Measurements of the left thyroid lobe are 5.2 x 1.9 x 2.0 cm. Isthmus is 0.7 cm. There is a large complex cystic mass in the right thyroid lobe occupying a large portion of the right thyroid lobe. This nodule is showing overall dimensions of 4.8 x 3.7 x 2.9 cm. Loculations of cystic change interspersed with some degree of solid nodular changes within the nodule could be seen. It may be centered in the midportion of the right thyroid lobe. It is quite large and exerts considerable mass effect on the adjacent tissue. It does not have significant increased vascularity, although there is some vascularity detected within portions of the wall of this complex cystic nodule. There is an additional nodule which is in the right side of the isthmus that is also a complex cystic nodule. This is much smaller measuring 0.7 x 1.0 x 1.3 cm. This has some cystic spaces interspersed with also some degree of solid elements. Imaging of the lower pole of the left thyroid lobe also shows a rounded nodule that has some smaller cystic spaces, but mostly seems to be solid. The solid areas are almost isoechoic with the adjacent thyroid. This nodule is measuring 1.7 x 1.2 x 1.3 cm. It does not seem to have increased vascularity or calcification. There are multiple smaller nodules also seen within this left thyroid lobe which are not individually measured. IMPRESSION: A multinodular change is seen in the thyroid. A large dominant complex cystic and solid nodule in the right thyroid lobe is seen exerting significant mass effect. This seems to be a T3 nodule, but the size of the nodule would suggest that fine-needle aspiration biopsy may be optimum. The other nodules also seem to be T3 nodules and do not seem to meet size criteria for biopsy at this time. Society of Radiologists in Ultrasound Consensus Conference statement for the management of thyroid nodules US Features of a Solitary nodule: Microcalcifications: Strongly consider US-guided FNA if greater than; or = 1 cm Solid (or almost entirely solid) +/- coarse calcifications: Strongly consider US-guided FNA if greater than; or = 1.5 cm Mixed solid and cystic or almost entirely cystic with solid mural component: Consider US-guided FNA if greater than; or = 2 cm None of the above but substantial growth: Consider US-guided FNA since prior US examination Almost entirely cystic and none of the above: US-guided FNA probably unnecessary Multiple nodules: Consider US-guided FNA of one or more nodules, with selection prioritized based on criteria (in the order listed) for solitary nodule. Radiology 2005; [id number] DMM/jcw Workstation ID: [id number] Dictated by: SOFÍA VILLEGAS on FriSep 05, 2023 2:18:33 PM EDT Transcribed by: CHARLES RUIZ on FriSep 05, 2023 2:41:24 PM EDT Finalized by: SOFÍA VILLEGAS on FriSep 05, 2023 4:59:14 PM EDT Normal [facility] Comment on above: Order Comment: Injur y/Trauma or Illness?:Illness/Other How long have you had these symptoms (acute/chronic)?:Chronic Reason for exam?:Goiter History of cancer?:Unknown Surgeries, chemotherapy, or radiation?:unknown Type of Exam?:Initial Additional signs and symptoms?:no CBCon 05-19-2023 Erythrocyte distribution width (RBC) [Ratio] 13.7 % Normal 11.5 - 14.5 [facility] Comment on above: Performed By: #### C BC #### [address] [address] Hematocrit (Bld) [Volume fraction] 41.3 % Normal 36.0 - 46.0 [facility] Comment on above: Performed By: #### C BC #### [address] [address] Hemoglobin (Bld) [Mass/Vol] 13.1 g/dL Normal 12.0 - 16.0 [facility] Comment on above: Performed By: #### C BC #### [address] [address] MCHC (RBC) [Mass/Vol] 31.7 g/dL Low 32.0 - 36.0 [facility] Comment on above: Performed By: #### C BC #### [address] [address] MCV (RBC) [Entitic vol] 88 fL Normal 80 - 100 [facility] Comment on above: Performed By: #### C BC #### [address] [address] Platelets (Bld) [#/Vol] 217 10*3/uL Normal 150 - 450 [facility] Comment on above: Performed By: #### C BC #### [address] [address] RBC 4.67 x10E12/L Normal 4.00 - 5.20 [facility] Comment on above: Performed By: #### C BC #### [address] [address] WBC (Bld) [#/Vol] 5.6 10*3/uL Normal 4.4 - 11.3 [facility] Comment on above: Performed By: #### C BC #### [address] [address] Daily Progress Note - OB-Pos t-partumon 05-19-2023 Daily Progress Note - DN-Ewir-hpgycb Current Stage: Stage: Post- Subjective Data: Post : Ambulate: Yes Flatus: Yes Tolerate Diet: Yes : POD #1 Resting well. Denies any headaches, visual changes or epigastric pain. Has very minimal vaginal bleeding. Objective Information: Objective Information: T PRBPMAPSpO2 [id number] % Date/Time05/19 4: 4: 4: 4: 4: 4:02 Range(36.5C - 37.3C ) (46 - 92 ) (14 - 18 ) (127 - 161 )/ (78 - 108 ) (96 - 116 ) (95% - 100% ) Highest temp of 37.3 C was recorded at 05/18 10:12 Pain reported at 05/19 4:02: 2 = Mild ---- Intake and Output ----- Mn/Dy/Year TimeIntakeOutwinslow [facility]ian [facility] care centerNet May 19, 2023 6:00 [id number] May 18, 2023 10:00 [id number] The Intake and Output Totals for the last 24 hours are: IntakeOutputNet [id number] Physical Exam: Constitutional: alert, oriented Obstetric: Abdomen: Soft and nontender Respiratory/Thorax: normal respiratory effort, lungs clear, no wheezes or rhonchi Cardiovascular: S1 S2 RRR, no murmurs Extremities: no calf tenderness, reflexes 2+ Recent Lab Results: Results: CBC: 05/19/2023 04:57 \ Hgb / \ 13.1 / WBC Plt 5.6 217 / Hct \ / 41.3 \ RBC: 4.67 MCV: 88 Neutrophil %: 34.5 BMP: 05/18/2023 11:28 NA+ Cl- BUN / 135 L 108 H 11 / -------- Glucose --- 91 K+ HCO3- Creat \ 3.7 22 0.49 L \ Calcium : 8.1 L Anion Gap : 9 L Coagulation: 05/18/2023 13:07 PT / 12.9 / -------< INR < 1.1 PTT\ 34 \ I have reviewed these laboratory results: Hepatic Function Panel 19-May-2023 04:57:00 ResultValue Aspartate Transaminase, Serum 15 ALB 3.1 L T Bili 0.6 Bilirubin, Serum Direct - Conjugated 0.1 ALKP 101 Alanine Aminotransferase, Serum 13 T Pro 6.3 L Total Protein, Urine Spot 18-May-2023 15:06:00 ResultValue Total Protein Urine Spot 23 T. Protein/Creat Ratio 1.00 H Creatinine, Urine Spot 23.0 Assessment and Plan: Additional Dx: Preeclampsia in period: Entered Date: 19-May-2023 07:31 Retained products of conception, : Entered Date: 18-May-2023 14:17 Assessment: POD #1 1. Status post suction curettage for retained products of conception 2. Preeclampsia--blood pressures improved, currently on Procardia XL 30 mg daily Plan discharging patient this afternoon if blood pressures remain stable. Plan continuing Procardia XL 30 mg for 6 weeks. Patient to then follow-up in the office in [address] Aguirre for blood pressure check. Electronic Signatures: Mia Blood) (Signed 19-May-2023 07:33) Authored: Current Stage, Subjective Data, Objective Data, Assessment and Plan, Note Completion Last Updated: 19-May-2023 07:33 by Mia Blood) [facility] Discharge Planning [id number] 0 05-19-2023 Discharge Planning Note2 Discharge Planning: Needs Prior to Discharge (ex. Home Care Orders, IV/O2 prescriptions) None Discharge Barriersnone [facility] 20[facility] PCP/Next Provider Follow Up Scheduledyes (Adult Med/Surg) Is the Patient Being Discharged on an Opioidno [place] of Choice Explainedyes Anticipated Discharge [id number] Discharge Planning Date and Time: 05/19/23 @ 1335 Nursing Note/Discharge: D: According to plan, patient discharged to home with significant other Instructions printed and reviewed, see Discharge Instructions sheet. Teaching provided on new medications, self care, signs and symptoms to report, and follow-up appointment. Patient verbalized understanding and denies any questions at time of discharge. Patient instructed to call OB with any additional questions after discharge. [employer] non profit: Discharge Planning Assessment [id number] Primary Contact Name and NumberLink Fisher(1) Lives Withsignificant other(1) Living Arrangements[place](1) Stated Reason for AdmissionD&C Retained Placenta(1) Arrived Fromovid (1) Resource/Environmental Concernsnon(1) Anticipated Transition Toovid(1) Services Anticipated at Transitionnon(1) Discharge Documentation: Discharge/Transfer Date/[id number] 13:35 Discharged Accompanied Bysignificant other/partner Transportation Methodprivate car Discharge Modeambulatory Code StatusCode Status order at time of discharge: Full Code Discharge Order Writtenyes [place] DNR Form Sent with Patient and/or Familyn/a Final Disposition.Home Electronic Signatures: Rebecca Santoro (N MGR) (Signed 19-May-2023 14:06) Authored: Discharge Planning, Assessment, Discharge Documentation Last Updated: 19-May-2023 14:06 by Rebecca Santoro (N MGR) References: 1. Data Referenced From Patient Profile - Adult v2 18-May-2023 17:59 Normal [facility] Discharge Ovfesbr0he 023 Discharge Profile2 Discharge Orders: Anticipated Discharge Date: Anticipated Discharge [id number] Problem List: Additional Dx: Preeclampsia in period: Catalog Name: Unspecified pre-eclampsia, complicating the puerperium Retained products of conception, : Catalog Name: Third-stage hemorrhage Hospital Providers: Provider RoleProvider Name Mia Buck Code Status: Code Status at Discharge: Full Code DNR Order Additional Instructions (peds only): : Activity: Return to normal activity as tolerated. Patient Instructions: Pelvic Rest: DO NOT place anything in vagina until cleared by OB Provider. Diet: Regular. Follow-Up - OB Provider: Physician/Dept/Yahaira Aguirre MD Scheduled Date/[id number]-[id number]-1996 10:15 LocationSW CommentsBlood pressure check Hospital Course (Home Care/Gold Form): Hospital Course: Hospital Course: include significant abnormal lab values Patient presented to the emergency room complaining of onset of heavy vaginal bleeding. Pelvic ultrasound obtained through the emergency room showed thickened endometrium concerning for retained products of conception. Blood pressure in the emergency room was noted to be intermittently elevated. Patient had a term vaginal delivery on May 05, 2023. Patient underwent a suction curettage on May 18, 2023. Patient was started on Procardia and her blood pressures were observe closely over the next 24 hours which were improved. Patient discharged on postop day 1. Patient will be continued on Procardia 30 mg XL daily and she will be monitoring her blood pressures twice daily at home. She is to follow-up in the office for blood pressure check in [address] Aguirre. Provider FINAL REVIEW of Orders: Final Review: Final Review of Medication Reconciliation and Orders Completedby Physician Reviewing ProviderMia Blood MD at 19-May-2023 12:08:39 Electronic Signatures: Mia Blood) (Signed 19-May-2023 12:08) Authored: Discharge Orders, , Hospital Course (Home Care/Gold Form), Provider FINAL REVIEW of Orders, Gold Form - Hairspring Setter Summary Rebecca Santoro (N MGR) (Signed 19-May-2023 14:00) Authored: Last Updated: 19-May-2023 14:00 by Rebecca Santoro (N MGR) Normal [facility] HEPATIC FUNCTION PANELon Albumin [Mass/Vol] 3.1 g/dL Low 3.4 - 5.0 [facility] Comment on above: Performed By: #### H EPFP #### [place] [address] ALP [Catalytic activity/Vol] 101 U/L Normal 33 - 110 [facility] Comment on above: Performed By: #### H EPFP #### [address] [address] ALT [Catalytic activity/Vol] 13 U/L Normal 7 - 45 [facility] Comment on above: Result Comment: Carmen ents treated with Sulfasalazine may generate falsely decreased results for ALT. Performed By: #### H EPFP #### [place] [id number] AST [Catalytic activity/Vol] 15 U/L Normal 9 - 39 [facility] Comment on above: Performed By: #### H EPFP #### [address] [address] Bilirubin [Mass/Vol] 0.6 mg/dL Normal 0.0 - 1.2 [facility] Comment on above: Performed By: #### H EPFP #### [address] [address] Bilirubin.indirect [Mass/Vol] 0.1 mg/dL Normal 0.0 - 0.3 [facility] Comment on above: Performed By: #### H EPFP #### [address] [address] Protein [Mass/Vol] 6.3 g/dL Low 6.4 - 8.2 [facility] Comment on above: Performed By: #### H EPFP #### [address] [address] Hepatic Function Panelon Albumin BCP dye [Mass/Vol] 3.1 g/dL below low threshold 3.4 - 5.0 [facility] [place] [address] [employer] Work Phone: [phone] ALP [Catalytic activity/Vol] 101 U/L 33 - 110 [facility] [place] [address] [employer] Work Phone: [phone] ALT With P-5'-P [Catalytic activity/Vol] 13 U/L 7 - 45 [facility] [place] [address] [employer] Work Phone: [phone] Comment on above: Patients treated wit h Sulfasalazine may generate falsely decreased results for ALT. AST With P-5'-P [Catalytic activity/Vol] 15 U/L 9 - 39 [facility] [place] [address] [employer] Work Phone: [phone] Bilirubin [Mass/Vol] 0.6 mg/dL 0.0 - 1.2 [place] [facility] [address] [employer] Work Phone: [phone] Bilirubin.direct [Mass/Vol] 0.1 mg/dL 0.0 - 0.3 [facility] [place] [address] [employer] Work Phone: [phone] Protein [Mass/Vol] 6.3 g/dL below low threshold 6.4 - 8.2 [facility] [address] [employer] Work Phone: [phone] Laboratory - Hematology and Cell countson 05-19-2023 Erythrocyte distribution width (RBC) [Ratio] 13.7 % See Below [facility] [address] [employer] Work Phone: [phone] Comment on above: Reference Range: 11. 5 - 14.5 Hematocrit (Bld) [Volume fraction] 41.3 % See Below [facility] [address] [employer] Work Phone: [phone] Comment on above: Reference Range: 36. 0 - 46.0 Hemoglobin (Bld) [Mass/Vol] 13.1 g/dL See Below [facility] [address] [employer] Work Phone: [phone] Comment on above: Reference Range: 12. 0 - 16.0 MCHC (RBC) [Mass/Vol] 31.7 g/dL below low threshold See Below [facility] [address] [employer] Work Phone: [phone] Comment on above: Reference Range: 32. 0 - 36.0 MCV (RBC) [Entitic vol] 88 fL 80 - 100 [facility] [employer] Work Phone: [phone] Platelets (Bld) [#/Vol] 217 10*3/uL 150 - 450 [facility] [employer] Work Phone: [phone] RBC (Bld) [#/Vol] 4.67 {x10E12/L} See Below [facility] [address] [employer] Work Phone: [phone] Comment on above: Reference Range: 4.0 0 - 5.20 WBC (Bld) [#/Vol] 5.6 10*3/uL 4.4 - 11.3 [facility] [address] [employer] Work Phone: [phone] Order Reconciliationon 05-19 Order Reconciliation Page 1 Discharge Reconciliation Document Reconciliation Type: Discharge requested on behalf of Mia Blood (Physician) done by Mia Blood) Discharge - Reconciliation: 19-May-2023 12:10 by: Mia Blood) Home Medications EnteredHOME MEDICATIONS AT DISCHARGE DateReconciliation Comment/ Additional Information ibuprofen 600 mg oral tablet 1 tab(s) orally every 6 hours 06-May-2023 19:04 ibuprofen 600 mg oral tablet 1 tab(s) orally every 6 hours 06-May-2023 19:04 ibuprofen 600 mg oral tablet is continued as ibuprofen 600 mg oral tablet Current OrdersDateHOME MEDICATIONS AT DISCHARGE DateReconciliation Comment/ Additional Information Acetaminophen Tablet (TYLENOL)DOSE = 650 mg Oral Every 4 Hours, PRN Pain - Mild (1-3) or fever 18-May-2023 15:55 Acetaminophen is not required Ibuprofen Tablet (ADVIL, MOTRIN)DOSE = 600 mg Oral Every 6 Hours, PRN Pain - Mild (1-3) 18-May-2023 15:55 Ibuprofen is not required Lactated Ringers Infusion IV Bag Volume = 1,000 mL Run at: 100 mL/hr IntraVenous 18-May-2023 14:55 Lactated Ringers Infusion is not required Lactated Ringers Infusion IV Bag Volume = 1,000 mL Run at: 125 mL/hr IntraVenous 18-May-2023 15:55 Lactated Ringers Infusion is not required NIFEdipine (PROCARDIA XL) Extended Release Tablet, Extended ReleaseDOSE = 30 mg Oral Daily 18-May-2023 15:55 NIFEdipine (PROCARDIA XL) Extended Release is not required Ondansetron Injectable (ZOFRAN)DOSE = 4 mg IntraVenous Push Every 6 Hours, PRN Nausea 18-May-2023 15:55 Ondansetron Injectable is not required Sodium Chloride 0.9% Injectable Flush via Peripheral LineVolume = 10 mL IntraVenous Flush Every 12 Hours and as Needed 18-May-2023 15:55 Sodium Chloride 0.9% Injectable Flush is not required Home Medications Added During Discharge Reconciliation Procardia XL 30 mg oral tablet, extended release 1 tab(s) orally once a day All Active Home Medications at time of Discharge Reconciliation: 19-May-2023 12:10 ibuprofen 600 mg oral tablet 1 tab(s) orally every 6 hours Procardia XL 30 mg oral tablet, extended release 1 tab(s) orally once a day [facility] APTTon 05-18-2023 aPTT Coag (Bld) [Time] 34 s Normal 26 - 39 [facility] Comment on above: Result Comment: THE APTT IS NO LONGER USED FOR MONITORING UNFRACTIONATED HEPARIN THERAPY. FOR MONITORING HEPARIN THERAPY, USE THE HEPARIN ASSAY. Performed By: #### S YPHR #### [facility] [address] [place] [address] Activated Partial Thrombopla stin Timeon 05-18-2023 aPTT Coag (PPP) [Time] 34 s 26 - 39 [facility] [address] Work Phone: Comment on above: THE APTT IS NO LONGE R USED FOR MONITORING UNFRACTIONATED HEPARIN THERAPY. FOR MONITORING HEPARIN THERAPY, USE THE HEPARIN ASSAY. Admission Risk Screen - Adul ton 05-18-2023 Admission Risk Screen - Adult This report has been cancelled. Normal [facility] BASIC METABOLIC PANELon 05-01 Anion gap [Moles/Vol] 9 mmol/L Low 10 - 20 [facility] Comment on above: Performed By: #### B MP ####[address] [address] Calcium [Mass/Vol] 8.1 mg/dL Low 8.6 - 10.3 [facility] Comment on above: Performed By: #### B MP ####[address] [address] Chloride [Moles/Vol] 108 mmol/L High 98 - 107 [facility] Comment on above: Performed By: #### B MP ####[address] [address] Creatinine [Mass/Vol] 0.49 mg/dL Low 0.50 - 1.05 [facility] Comment on above: Performed By: #### B MP ####[address] [address] eGFR FEMALE >90 Normal >90 [facility] Comment on above: Result Comment: CALC ULATIONS OF ESTIMATED GFR ARE PERFORMED USING THE 2020 CKD-EPI STUDY REFIT EQUATION WITHOUT THE RACE VARIABLE FOR THE IDMS-TRACEABLE CREATININE METHODS. https://jasn.asnjournals.org/content/early/ASN.25764 93092 Performed By: #### B MP ####[address] [address] Glucose [Mass/Vol] 91 mg/dL Normal 74 - 99 [facility] Comment on above: Performed By: #### B MP ####[address] [address] HCO3 (Bld) [Moles/Vol] 22 mmol/L Normal 21 - 32 [facility] Comment on above: Performed By: #### B MP ####[address] [address] Potassium [Moles/Vol] 3.7 mmol/L Normal 3.5 - 5.3 [facility] Comment on above: Performed By: #### B MP ####[address] [address] Sodium [Moles/Vol] 135 mmol/L Low 136 - 145 [facility] Comment on above: Performed By: #### B MP ####[address] [address] Urea nitrogen [Mass/Vol] 11 mg/dL Normal 6 - 23 [facility] Comment on above: Performed By: #### B MP ####[address] [address] CBC AND DIFFERENTIALon 05-18 % AUTOMATED IMMATURE GRAN 0.2 % Normal 0.0 - 0.9 [facility] Comment on above: Result Comment: Linda ture Granulocyte Count (IG) includes promyelocytes, myelocytes and metamyelocytes but does not include bands. Percent differential counts (%) should be interpreted in the context of the absolute cell counts (cells/L). Performed By: #### C BC #### [address] [address] Basophils (Bld) [#/Vol] 0.07 10*3/uL Normal 0.00 - 0.10 [facility] Comment on above: Performed By: #### C BC #### [address] [address] Basophils/100 WBC (Bld) 1.3 % Normal 0.0 - 2.0 [facility] Comment on above: Performed By: #### C BC #### [address] [address] Eosinophils (Bld) [#/Vol] 0.12 10*3/uL Normal 0.00 - 0.70 [facility] Comment on above: Performed By: #### C BC #### [address] [address] Eosinophils/100 WBC (Bld) 2.3 % Normal 0.0 - 6.0 [facility] Comment on above: Performed By: #### C BC #### [address] [address] Erythrocyte distribution width (RBC) [Ratio] 13.6 % Normal 11.5 - 14.5 [facility] Comment on above: Performed By: #### C BC #### [address] [address] Hematocrit (Bld) [Volume fraction] 42.8 % Normal 36.0 - 46.0 [facility] Comment on above: Performed By: #### C BC #### [address] [address] Hemoglobin (Bld) [Mass/Vol] 13.8 g/dL Normal 12.0 - 16.0 [facility] Comment on above: Performed By: #### C BC #### [address] [address] Lymphocytes (Bld) [#/Vol] 2.87 10*3/uL Normal 1.20 - 4.80 [facility] Comment on above: Performed By: #### C BC #### [address] [address] Lymphocytes/100 WBC (Bld) 53.8 % Normal 13.0 - 44.0 [facility] Comment on above: Performed By: #### C BC #### [address] [address] MCHC (RBC) [Mass/Vol] 32.2 g/dL Normal 32.0 - 36.0 [facility] Comment on above: Performed By: #### C BC #### [address] [address] MCV (RBC) [Entitic vol] 88 fL Normal 80 - 100 [facility] Comment on above: Performed By: #### C BC #### [address] [address] Monocytes (Bld) [#/Vol] 0.42 10*3/uL Normal 0.10 - 1.00 [facility] Comment on above: Performed By: #### C BC #### [address] [address] Monocytes/100 WBC (Bld) 7.9 % Normal 2.0 - 10.0 [facility] Comment on above: Performed By: #### C BC #### [address] [address] Neutrophils (Bld) [#/Vol] 1.84 10*3/uL Normal 1.20 - 7.70 [facility] Comment on above: Result Comment: Perc ent differential counts (%) should be interpreted in the context of the absolute cell counts (cells/L). Performed By: #### C BC #### [address] [address] Neutrophils/100 WBC (Bld) 34.5 % Normal 40.0 - 80.0 [facility] Comment on above: Performed By: #### C BC #### [address] [address] Platelets (Bld) [#/Vol] 237 10*3/uL Normal 150 - 450 [facility] Comment on above: Performed By: #### C BC #### [address] [address] RBC 4.87 x10E12/L Normal 4.00 - 5.20 [facility] Comment on above: Performed By: #### C BC #### [address] [address] WBC (Bld) [#/Vol] 5.3 10*3/uL Normal 4.4 - 11.3 [facility] Comment on above: Performed By: #### C #### [facility] [address] [place] [address] Complete Blood Count + Diffe gloria 05-18-2023 Basophils/100 WBC (Bld) 1.3 % 0.0 - 2.0 [facility] [address] Work Phone: [phone] Erythrocyte distribution width (RBC) [Ratio] 13.6 % See Below [facility] [address] Work Phone: [phone] Comment on above: Reference Range: 11. 5 - 14.5 Hematocrit (Bld) [Volume fraction] 42.8 % See Below [facility] [address] Work Phone: [phone] Comment on above: Reference Range: 36. 0 - 46.0 Hemoglobin (Bld) [Mass/Vol] 13.8 g/dL See Below [facility] [address] Work Phone: [phone] Comment on above: Reference Range: 12. 0 - 16.0 Lymphocytes/100 WBC (Bld) 53.8 % See Below [facility] [address] Work Phone: [phone] Comment on above: Reference Range: 13. 0 - 44.0 MCHC (RBC) [Mass/Vol] 32.2 g/dL See Below [facility] [address] Work Phone: [phone] Comment on above: Reference Range: 32. 0 - 36.0 MCV (RBC) [Entitic vol] 88 fL 80 - 100 [facility] [address] Work Phone: [phone] Monocytes/100 WBC (Bld) 7.9 % 2.0 - 10.0 [facility] [address] Work Phone: [phone] Neutrophils/100 WBC (Bld) 34.5 % See Below [facility] [address] Work Phone: [phone] Comment on above: Reference Range: 40. 0 - 80.0 Platelets (Bld) [#/Vol] 237 10*3/uL 150 - 450 [facility] [address] Work Phone: [phone] RBC (Bld) [#/Vol] 4.87 {x10E12/L} See Below [facility] [address] Work Phone: [phone] Comment on above: Reference Range: 4.0 0 - 5.20 WBC (Bld) [#/Vol] 5.3 10*3/uL 4.4 - 11.3 [facility] [address] Work Phone: [phone] Complete Blood Count + Differential 0.07 {x10E9/L} See Below [facility] [address] Work Phone: [phone] Comment on above: Reference Range: 0.0 0 - 0.10 Complete Blood Count + Differential 0.12 {x10E9/L} See Below [facility] [address] Work Phone: [phone] Comment on above: Reference Range: 0.0 0 - 0.70 Complete Blood Count + Differential 0.42 {x10E9/L} See Below [facility] [address] [employer] Work Phone: [phone] Comment on above: Reference Range: 0.1 0 - 1.00 Complete Blood Count + Differential 2.87 {x10E9/L} See Below [facility] [address] Work Phone: [phone] Comment on above: Reference Range: 1.2 0 - 4.80 Complete Blood Count + Differential 1.84 {x10E9/L} See Below [facility] [address] Work Phone: [phone] Comment on above: Reference Range: 1.2 0 - 7.70 Percent differential counts (%) should be interpreted in the context of the absolute cell counts (cells/L). Complete Blood Count + Differential 2.3 % 0.0 - 6.0 [facility] [address] Work Phone: [phone] Complete Blood Count + Differential 0.2 % 0.0 - 0.9 [facility] [address] Work Phone: [phone] Comment on above: Immature Granulocyte Count (IG) includes promyelocytes, myelocytes and metamyelocytes but does not include bands. Percent differential counts (%) should be interpreted in the context of the absolute cell counts (cells/L). HEPATIC FUNCTION PANELon Albumin [Mass/Vol] 3.4 g/dL Normal 3.4 - 5.0 [facility] Comment on above: Performed By: #### S YPHR #### [facility] [address] [place] [address] ALP [Catalytic activity/Vol] 101 U/L Normal 33 - 110 [facility] Comment on above: Performed By: #### S YPHR #### [place] [address] [place] [address] ALT [Catalytic activity/Vol] 16 U/L Normal 7 - 45 [facility] Comment on above: Result Comment: Carmen ents treated with Sulfasalazine may generate falsely decreased results for ALT. Performed By: #### S YPHR #### [facility] [address] [place] [address] AST [Catalytic activity/Vol] 17 U/L Normal 9 - 39 [facility] Comment on above: Performed By: #### S YPHR #### [place] [address] [place] [address] Bilirubin [Mass/Vol] 1.0 mg/dL Normal 0.0 - 1.2 [facility] Comment on above: Performed By: #### S YPHR #### [facility] [address] [place] [address] Bilirubin.indirect [Mass/Vol] 0.0 mg/dL Normal 0.0 - 0.3 [facility] Comment on above: Performed By: #### S YPHR #### [facility] [address] [place] [address] Protein [Mass/Vol] 7.2 g/dL Normal 6.4 - 8.2 [facility] Comment on above: Performed By: #### S YPHR #### [facility] [address] [place] [address] Hepatic Function Panelon Albumin BCP dye [Mass/Vol] 3.4 g/dL 3.4 - 5.0 [facility] [place] [address] [employer] Work Phone: [phone] ALP [Catalytic activity/Vol] 101 U/L 33 - 110 [facility] [place] [address] [employer] Work Phone: [phone] ALT With P-5'-P [Catalytic activity/Vol] 16 U/L 7 - 45 [facility] [address] [employer] Work Phone: [phone] Comment on above: Patients treated wit h Sulfasalazine may generate falsely decreased results for ALT. AST With P-5'-P [Catalytic activity/Vol] 17 U/L 9 - 39 [facility] [place] [address] [employer] Work Phone: [phone] Bilirubin [Mass/Vol] 1.0 mg/dL 0.0 - 1.2 [facility] [address] [employer] Work Phone: [phone] Bilirubin.direct [Mass/Vol] 0.0 mg/dL 0.0 - 0.3 [facility] [address] [employer] Work Phone: [phone] Protein [Mass/Vol] 7.2 g/dL 6.4 - 8.2 [facility] [address] [employer] Work Phone: [phone] Laboratory - Blood bankon ABO group Nom (Bld) O [facility] [address] [employer] Work Phone: [phone] Blood group antibody screen Ql Negative [facility] [address] [employer] Work Phone: [phone] Rh immune globulin screen (Bld) [Interp] Positive [facility] [place] [address] [employer] Work Phone: [phone] Laboratory - Chemistry and C hemistry - challengeon 05-18-2023 TSH Qn 0.39 m[IU]/L below low threshold See Below [facility] [address] [employer] Work Phone: [phone] Comment on above: Reference Range: 0.4 4 - 3.98 TSH testing is performed using different testing methodology at [facility] than at other [facility] hospitals. Direct result comparisons should only be made within the same method. Anion gap [Moles/Vol] 9 mmol/L below low threshold 10 - 20 [facility] [address] Work Phone: [phone] Calcium [Mass/Vol] 8.1 mg/dL below low threshold 8.6 - 10.3 [facility] [address] Work Phone: [phone] Chloride [Moles/Vol] 108 mmol/L above high threshold 98 - 107 [facility] [address] Work Phone: [phone] CO2 [Moles/Vol] 22 mmol/L 21 - 32 [facility] [address] Work Phone: [phone] Creatinine [Mass/Vol] 0.49 mg/dL below low threshold See Below [facility] [address] Work Phone: [phone] Comment on above: Reference Range: 0.5 0 - 1.05 Glucose [Mass/Vol] 91 mg/dL 74 - 99 [facility] [address] Work Phone: [phone] Potassium [Moles/Vol] 3.7 mmol/L 3.5 - 5.3 [facility] [address] Work Phone: [phone] Sodium [Moles/Vol] 135 mmol/L below low threshold 136 - 145 [facility] [address] Work Phone: [phone] Urea nitrogen [Mass/Vol] 11 mg/dL 6 - 23 [facility] [address] Work Phone: [phone] Laboratory - Coagulationon 0 05-18-2023 INR Coag (PPP) [Relative time] 1.1 {INR} 0.9 - 1.1 [facility] [address] Work Phone: [phone] PT Coag (PPP) [Time] 12.9 s 9.8 - 13.4 [facility] [address] Work Phone: [phone] No Panel Informationon 05-18 Normal [facility] [address] Work Phone: [phone] >90 >90 [facility] [address] Work Phone: Comment on above: CALCULATIONS OF LANDY MATED GFR ARE PERFORMED USING THE 2020 CKD-EPI STUDY REFIT EQUATION WITHOUT THE RACE VARIABLE FOR THE IDMS-TRACEABLE CREATININE METHODS.https://jasn.asnjournals.org/content/early/A SN.5117981256 PT/INRon 05-18-2023 PT Coag (PPP) [Time] 12.9 s Normal 9.8 - 13.4 [facility] Comment on above: Performed By: #### P TINR #### [address] [address] PT, INR 1.1 Normal 0.9 - 1.1 [facility] Comment on above: Performed By: #### P TINR #### [address] [address] Patient Profile - Adult v2on 05-18-2023 Patient Profile - Adult v2 Profile: Initial Info: How to be AddressedTaccarrie(1) Spoken Language PreferredEnglish (1) Source of Informationpatient Stated Reason for AdmissionD&C Retained Placenta Primary Contact Name and NumberLink Fisher Other Contact Names and [phone] Wants Family/Rep Notified of Admissionn/a; family present Notify PCPdo not notify PCP Informed of Patient Visiting Rightsyes Limitations on Visitors/Phone Callsnone Temporary Family Living Arrangements (While Hospitalized)none needed [place] To in Past 90 Daysnone Patient Belongingsremains with patient Patient Belongings Remaining with Patientclothing; cell phone/electronics Medications Brought to Hospitalno General Health: Blood Avoidance/Restrictionsno ne(1) Previous Transfusion Reactionnot applicable(1) Feel Rested Upon Awakeningno Weight in kg69 kilogram(s)(2) Weight in svr179.1 pound(s) Weight Methodactual (measured) Scale Typestanding Height in cm159.7 centimeter(s) Height in feet5 feet Height in inches2.91 inch(es) Height Methodstated BMI (kg/m2)27.054 square meter RSP Based Care: How would you like to participate in your carekeep informed, give choices What is the number one concern for you during this hospitalizationnone What is the most important thing we can do to support you during this hospitalizationget rest Is there anything we need to know to best care for youno Substance: Smoking Statusnever smoker (3) Alcohol Usedenies(3) Drug Usedenies (3) Drug 2 Usedenies Health Mgmt: Symptoms/Conditions Managed at [facility] Are You no (4) Are You Currently Breastfeedingno (4) Barriers to Managing Healthnone Relationship/Environ: Significant Exposurenone(1) Resource/Environmental Concernsnone Primary Source of Support/Comfortsignifica nt other; child(luz); friend; parent Lives Withsignificant other Living Arrangementshouse Services Anticipated at Transitionnone Anticipated Transition Tohome Significant IndicatorsComplete Information Review: Allergies, Home Meds and Significant Events have been Reviewed and Verified with Patient/Familyyes ALLERGY, INTOLERANCE, ADVERSE EVENT: Allergies: No Known Allergies: Active Electronic Signatures: Cathleen Meehan (NANETTE) (Signed 18-May-2023 18:42) Authored: Initial Info, General Health, RSP Based Care, Substance, Health Mgmt, Relationship/Environ, Additional Information Last Updated: 18-May-2023 18:42 by Cathleen Meehan (NANETTE) References: 1. Data Referenced From Patient Profile - OB v3 04-May-2023 22:30 2. Data Referenced From 1. Vital Signs 18-May-2023 10:12 3. Data Referenced From History and Physical - OB 18-May-2023 14:05 4. Data Referenced From History and Physical - Surgical Update < 30 days 18-May-2023 14:55 Normal [facility] Preop Checkliston 05-18-2023 Preop Checklist Preop Checklist: Preop Checklist: Arrival [id number] Arrival Time14:44 Procedure Typesuction d&c Temperature C37.5 degrees C Temperature F99.5 degrees F Heart Rate76 beats per minute Respiratory Rate13 breath per minute Blood Pressure Sfasaqoc374 mm/Hg Blood Pressure Ysizyygyj99 mm/Hg NPOyes Last Food [id number] 23:00 Last Clear Fluid [id number] 05:00 ID Band On Patientpatient ID (name) Consent Signedyes H&P Completeyes Anesthesia Assessment Completedyes Preop Antibioticsstarted in preop HCG Urine TestN/A had baby 05/05/2023 Chlorhexadine Bath Givennot applicable Nasal Antiseptic Appliednot applicable Soap and Water Bath the Night Before Surgerynot applicable Hair Washed with Shampoonot applicable Hat placed on prior to transportnot applicable SCD's Appliedyes DEONNA Hose Appliednot ordered Denturesnot applicable Prostheticsnot applicable Hearing Aidsnot applicable Valuables Securedleft in pacu Cardiovascular Assessment: Apicalregular Extremitieswarm Respiratory Assessment: Respirationsunlabored regular Air Exchangeequal Breath Soundsclear Neurological Assessment: Level of Consciousnessalert, oriented Mobilitymoves all extremities Able to Express Selfyes Age Appropriateyes Emotional Statusanxious Skin Assessment: Skin Site(s) with Current Compromisenone Preop Education: Surgical Site Infection Preventionyes Pain Scales and Managementyes Language / Communication: Language / CommunicationEnglish Electronic Signatures: Leisa Mccarthy (RN) (Signed 18-May-2023 14:51) Authored: Preop Checklist Last Updated: 18-May-2023 14:51 by Leisa Mccarthy (RN) [facility] Provider Note - ED v3on 05-01 Provider Note - ED v3 Provider Note: Results/Vital Signs: Pediatric Clinical Scoring (MEAGAN) is no recent MEAGAN charted on this account Chart Review: ED NOTES ED NOTES: ====HPI==== Patient is a 32-year-old female who presents to the emergency department for vaginal bleeding status post vaginal delivery on May 05, 13 days ago. She states that she has had normal expected bleeding status postdelivery until this morning in which she woke up in a pool of blood with blood clots. She denies any abdominal pain. No fever or chills. No nausea or vomiting. She states that when she originally saw the blood on her bed she felt lightheaded but states that she feels fine now. He states that this is her fourth . Her OB physician was Dr. Aguirre. PMHX: Denies Social HX: Denies TOBACCO Denies ETOH Denies DRUGS ====Review of Systems==== 10 point system review is negative except for those specifically mentioned in history of present illness ====Physical Exam==== Constitutional/General: Alert and oriented x3, well appearing, nontoxic, and in NAD. Head: Normocephalic and atraumatic. Eyes: PERRL, EOMI, conjunctive normal, sclera nonicteric, subconjunctival layer is pink. Mouth: Oropharynx clear, handling secretions, no trismus, no asymmetry of the posterior oropharynx or uvular edema Neck: Supple, full ROM, non tender to palpation in the midline, no stridor, no crepitus, no meningeal signs. Trachea at midline. Respiratory: Lungs clear to auscultation bilaterally, no wheezes, rales, or rhonchi, not in respiratory distress. Cardiovascular: Regular rate, regular rhythm, no murmurs, gallops, or rubs, 2+ distal pulses. Chest: normal chest wall movement GI: Abdomen soft, nontender, nondistended, no organomegaly, no palpable masses, no rebound, guarding, or rigidity. Musculoskeletal: Moves all extremities x4, warm and well perfused, no clubbing, cyanosis, or edema, cap refill <3 seconds Integument: Skin warm and dry, no rashes. Neurologic: GCS 15, no focal deficits, symmetric strength 5/5 in the upper and lower extremities bilaterally. Psychiatric: Normal affect. ====ED Course and Medical Decision Making==== See MDM section for review of findings & plan of care. Portions of this note were dictated by speech recognition. An attempt at proof reading was made to minimize errors. Minor errors in instrument inspector may be present. Please call if questions.. HISTORY OF PRESENTING ILLNESS TONI is a 32 year old Female and was seen by me at 18-May-2023 10:16 for a chief complaint of vaginal bleeding (Amb to ED with c/o vaginal bleeding. She reports that she had a normal vaginal delivery on 05/05/23. She reports that she woke this am in a pool of blood with clots. Denies any pain)(1). Triage Information: Most recent Vital Sign Value Date Temp (F): 99.2 05-18-2023 10:21 Temp (C): 37.3 05-18-2023 10:21 Heart Rate (beats/min): 63 05-18-2023 10:21 Respirations (breaths/min): 16 05-18-2023 10:21 SpO2 (%): 97 05-18-2023 10:21 BP Systolic (mm Hg): 142 05-18-2023 10:21 BP Diastolic (mm Hg): 92 05-18-2023 10:21 PAST MEDICAL HISTORY ALLERGIES/INTOLERANCES: No Known Allergies HEALTH HISTORY: No documented data. OUTPATIENT MEDICATIONS: Home Medications Review Status for Reconciliation: Complete Med Status: Patient Currently Takes Medications Drug Name: ibuprofen 600 mg oral tablet Instructions: 1 tab(s) orally every 6 hours SIGNIFICANT EVENTS: Clinical Events Description:Surgical Procedure Additional Notes:1. Suction curettage; Immunizations Description:DTaP- Bdbpstgsr-Kjqhtdh-hruued lar Pertussis Description:.Pneumonia- Pneumococcal polysaccharide vaccine-adult Past Medical History Description:denies CRITICAL CARE RESULTS: Recent Lab Results: I have reviewed these laboratory results: Hepatic Function Panel 18-May-2023 13:07:00 ResultValue Aspartate Transaminase, Serum 17 ALB 3.4 T Bili 1.0 Bilirubin, Serum Direct - Conjugated 0.0 ALKP 101 Alanine Aminotransferase, Serum 16 T Pro 7.2 TSH with Reflex to Free T4 if Abnormal 18-May-2023 13:07:00 ResultValue Thyroid Stimulating Hormone, Serum 0.39 L PT + INR, Plasma 18-May-2023 13:07:00 ResultValue Prothrombin Time, Plasma 12.9 International Normalized Ratio, Plasma 1.1 Activated Partial Thromboplastin Time 18-May-2023 13:07:00 ResultValue Activated Partial Thromboplastin Time 34 Urinalysis with Culture if Indicated 18-May-2023 11:42:00 ResultValue Color, Urine Yellow Reference Range: STRAW,YELLOW Appearance, Urine CLEAR Specific Ellinger, Urine 1.018 pH, Urine 6.0 Protein, Urine 100(2+) A Glucose, Urine NEGATIVE Blood, Urine MODERATE(2+) A Ketones, Urine NEGATIVE Bilirubin, Urine NEGATIVE Urobilinogen, Urine <2.0 Nitrite, Urine Negative Leukocyte Esterase, Urine NEGATIVE Urinalysis, Microscopic 18-May-2023 11:42 (more content not included)... Normal [facility] Risk Screen - Adult Emergenc yon 05-18-2023 Risk Screen - Adult Emergency Preferred Language: Preferred Language: Preferred Language for Discussing Health Care (patient/designee)Lucho hirsch Patient Preferred Pharmacy: Patient Preferred Pharmacy Statement: I have reviewed and updated the patient's preferred pharmacy selection for today's visit. Advanced Directives: Advance Directive/DNRno Family Violence Adult: Abuse Screen: Are you or have you been threatened or abused physically, emotionally, or sexually by anyoneno Learning Assessment (Patient): Learning Assessment (Patient): Patient is Able to be Assessed for Learningyes Factors Influencing Readiness to Learnacuteness of illness Factors that Impact Ability to Learnnone Devices/Methods Used to Communicatenone Learning Preferencesverbal instruction; written material Cultural Considerationsnone Developmental Considerationsnone Mandaen Considerationsnone Learning Assessment (Other Learner): Learning Assessment (Other Learner): Other learner availableno Pressure Injury/TB/Substance: Pressure Injury: Pressure Injury Present on Admissionno Do you have a coughno Smoking Statusnever smoker Alcohol Usedenies Drug Usedenies Admission Risk Screen: Significant IndicatorsComplete CAGE: CAGE: Is this an injured patient at a Trauma Center ([facility]/[place] /[place]): no Electronic Signatures: Nneka Dunn (NANETTE) (Signed 18-May-2023 10:24) Authored: Preferred Language, Patient Preferred Pharmacy, Advanced Directives, Family Violence Adult, Learning Assessment (Patient), Learning Assessment (Other Learner), Pressure Injury/TB/Substance, Pressure Injury, CAGE Last Updated: 18-May-2023 10:24 by Nneka Dunn (NANETTE) Normal [facility] T4 - Free Thyroxine, Serumon 05-18-2023 Free T4 [Mass/Vol] 0.90 ng/dL See Below [facility] [employer] Work Phone: Comment on above: Reference Range: 0.6 1 - 1.12 Thyroxine Free testing is performed using different testing methodology at [facility] than at other [facility]. Direct result comparisons should only be made within the same method.. Biotin can cause falsely elevated free T4 results. Patients taking a Biotin dose of up to 10 mg/day should refrain from taking Biotin for 24 hours before sample collection. Patient taking a Biotin dose of >10 mg/day should consult with their physician or the laboratory before the blood draw. THYROXINE,FREEon 05-18-2023 THYROXINE,FREE 0.90 ng/dL Normal 0.61 - 1.12 [facility] Comment on above: Result Comment: Thyr oxine Free testing is performed using different testing methodology at [facility] than at other [facility]. Direct result comparisons should only be made within the same method. . Biotin can cause falsely elevated free T4 results. Patients taking a Biotin dose of up to 10 mg/day should refrain from taking Biotin for 24 hours before sample collection. Patient taking a Biotin dose of >10 mg/day should consult with their physician or the laboratory before the blood draw. Performed By: #### C BC #### [place] [id number] TOTAL PROTEIN, URINE SPOTon 05-18-2023 CREATININE,URINE 23.0 mg/dL Normal 20.0 - 320.0 [facility] Comment on above: Performed By: #### T PS2 #### [place] [address] T. PROTEIN/CREAT RATIO 1.00 mg/mg Creat High 0.00 - 0.17 [facility] Comment on above: Performed By: #### T PS2 #### [place] [id number] TOTAL PROT,URINE SPOT 23 mg/dL Normal 5 - 24 [facility] Comment on above: Performed By: #### T PS2 #### [place] [id number] CREATININE,URINE Canceled Normal [facility] Comment on above: Order Comment: TEST TOTAL PROTEIN, URINE SPOT WAS CANCELLED, 05/18/2023 15:08 can not add on to specimen in lab, send in cup or white top tube. Performed By: #### T PS2 #### [place] [address] T. PROTEIN/CREAT RATIO Canceled Normal [facility] Comment on above: Order Comment: TEST TOTAL PROTEIN, URINE SPOT WAS CANCELLED, 05/18/2023 15:08 can not add on to specimen in lab, send in cup or white top tube. Performed By: #### T PS2 #### [address] [address] TOTAL PROT,URINE SPOT Canceled Normal [facility] Comment on above: Order Comment: TEST TOTAL PROTEIN, URINE SPOT WAS CANCELLED, 05/18/2023 15:08 can not add on to specimen in lab, send in cup or white top tube. Performed By: #### T PS2 #### [address] [address] TSH WITH REFLEX TO FREE T4 I F ABNORMALon 05-18-2023 TSH Qn 0.39 m[IU]/L Low 0.44 - 3.98 [facility] Comment on above: Result Comment: TSH testing is performed using different testing methodology at [facility] than at other [facility]. Direct result comparisons should only be made within the same method. Performed By: #### C BC #### [address] [address] TYPE + SCREENon 05-18-2023 ABO TYPE O Normal [facility] Comment on above: Performed By: #### T +S #### [address] [address] RH TYPE Positive Normal [facility] Comment on above: Performed By: #### T +S #### [address] [address] Total Protein, Urine Spoton 05-18-2023 Creatinine (U) [Mass/Vol] 23.0 mg/dL See Below [facility] [address] [employer] Work Phone: [phone] Comment on above: Reference Range: 20. 0 - 320.0 Protein (U) [Mass/Vol] 23 mg/dL 5 - 24 [facility] [employer] Work Phone: [phone] Protein/Creatinine (U) [Ratio] 1.00 {mg/mg_Creat} above high threshold See Below [facility] [address] [place] Work Phone: [phone] Comment on above: Reference Range: 0.0 0 - 0.17 Creatinine (U) [Mass/Vol] Canceled [facility] [place] Work Phone: [phone] Protein (U) [Mass/Vol] Canceled [facility] [employer] Work Phone: [phone] Protein/Creatinine (U) [Ratio] Canceled [facility] [address] Work Phone: Triage - EDon 05-18-2023 Triage - ED Quick Triage: Are You no Have You Given In The Last 6 Weeksyes Are You Currently Breastfeedingno The patient and/or guardian verbally acknowledges placement for services into the following (when Urgent Care Service hours are operating):emergency department Chart Review: ARRIVAL INFORMATION Mode of Arrival: private vehicle CHIEF COMPLAINT TONI JACOBSON is a Female patient with a chief complaint of vaginal bleeding (Amb to ED with c/o vaginal bleeding. She reports that she had a normal vaginal delivery on 05/05/23. She reports that she woke this am in a pool of blood with clots. Denies any pain). Triage Date/Time: 18-May-2023 10:12 VALENTINA: 3 Pain Rating (0-10): 0 = None Pain location: denies Vital Signs: Temperature: 99.2F ( 37.3C) taken temporal Blood Pressure: 142/92 Mean: Heart Rate: 63 Respiratory Rate: 16 Pulse Oximetry: 97% on room air, no respiratory support. Weight: 152.1 pounds. Calculated 69.0 kg. [place] Coma Scale: Best Eye Response: (E4) spontaneous Best Motor Response: (M6) obeys commands Best Verbal Response: (V5) oriented Bee Score: 15 Cough lasting greater than 3 weeks: no Allergies: no Last menstrual period: unknown Patient has homicidal thoughts: no Symptoms Are POSITIVE For: vaginal bleeding. Symptoms Are Negative For: abdominal cramp, back pain, edema, fever, vaginal itching, nausea and vaginal discharge. Risk Screens Suicide Risk Screen In the Past Month: Have you wished you were or wished you could go to sleep and not wake up no In the Past Month: Have you had any actual thoughts of killing yourself no In Your Lifetime: Have you ever done anything, started to do anything, or prepared to do anything to end your life no García Fall Scale Screening Has the patient fallen before (or is the patient in the ED as a result of a fall) has not had a fall Does the patient have an impaired gait does not have impaired gait Is the patient cognitively impaired not cognitively impaired Interventions: García Fall Interventions: LOW INTERVENTIONS: *patient oriented to surroundings and call system, * patient/family falls education completed and documented, *patients fall status communicated during bedside handoff, *whiteboard updated, *mode of toileting discussed with patient, *bed in low position with brakes locked, *call light in reach, * non-skid footwear TRAVEL HISTORY Travel History Coronavirus Screening: no exposure or symptoms Travel Exposure History: NO travel to International locations in the past 30 days PAIN Pain Scale Used: BUCK Pain Rating (0-10): 0 = None Past Medical History: Past Medical History Reviewedyes Electronic Signatures: Nneka Dunn (RN) (Signed 18-May-2023 10:24) Entered: Risk Screens, Pain, Travel History, Chart Review, Scores, Past Medical History Authored: Quick Triage, Risk Screens, Pain, Travel History, Chart Review, Scores, Past Medical History Last Updated: 18-May-2023 10:24 by Nneka Dunn (RN) Normal [facility] UA MICROSCOPICon 05-18-2023 Mucus Ql (Urine sed) 1+ /LPF Normal [facility] Comment on above: Performed By: #### S YPHR #### [facility] [address] [place] [address] RBC 40 /HPF Abnormal 0-5 [facility] Comment on above: Performed By: #### S YPHR #### [facility] [address] [place] [address] SQUAMOUS EPITH. CELLS <1 Normal [facility] Comment on above: Performed By: #### S YPHR #### [facility] [address] [place] [address] WBC None Normal 0-5 [facility] Comment on above: Performed By: #### S YPHR #### [facility] [address] [place] [address] [facility] Surgical Pathology Depar tmenton 05-18-2023 [facility] Surgical Pathology Department Name TONI JACOBSON Pathologist: ELYSE FUNEZ MD Date of Procedure: 05/18/2023 Date Received: 05/19/2023 Date Reported 05/22/2023 Submitting Physician: MIA BLOOD MD Location: [facility] Copy To/Referring/Attending: PATRICIA BOUCHER D.O Other External # FINAL DIAGNOSIS A. RETAINED PLACENTA: -- DEGENERATING PLACENTAL MEMBRANES, INVOLUTING IMPLANTATION SITE, AND MYOMETRIUM EMBEDDED IN BLOOD CLOT Electronically Signed Out By ELYSE FUNEZ MD/YSABEL By the signature on this report, the individual or group listed as making the Final Interpretation/Diagnosis certifies that they have reviewed this case. Diagnostic interpretation performed at [place] [address] Clinical History: 32-year-old black female 4 now para 4 who delivered on May 05 by normal spontaneous vaginal delivery. Patient presents to emergency room stating that she has had she was doing well following the delivery until she had onset of heavy vaginal bleeding this morning. Denies any fevers or chills. Ultrasound performed through the emergency room today shows thickened endometrium consistent with retained placenta. Patient's blood pressure in the emergency room was noted to be elevated and therefore patient received Procardia 10 mg orally. In light of the ultrasound findings consistent with retained placenta, recommend to proceed with suction curettage. Patient understands that with her elevated blood pressure that she will also be monitored over the next 24 hours in the hospital. Patient denies any prior issues of blood pressure problems during previous pregnancies or the current . Specimens Submitted As: A: RETAINED PLACENTA Gross Description: Received in formalin, labeled with the patient's name and hospital number and retained placenta, is a 8.0 x 5.5 x 1.2 cm aggregate of red?brown, membranous tissue and clotted blood. There is no villous tissue identified. Infrastructure Administrator sections are submitted in 6 cassettes. ANS/MJR 05/20/[address] [facility] Department of Pathology [address] [place] [address] Normal [facility] Comment on above: Performed By: #### A NEMI #### [address] [address] URINALYSIS WITH CULTURE IF I NDICATEDon 05-18-2023 Appearance (U) CLEAR Normal CLEAR [facility] Comment on above: Performed By: #### C BC #### [address] [address] Bilirubin Ql (U) Negative Normal NEGATIVE [facility] Comment on above: Performed By: #### C BC #### [address] [address] Color (U) Yellow Normal STRAW,YELLOW [facility] Comment on above: Performed By: #### C BC #### [address] [address] Glucose Ql (U) Negative Normal NEGATIVE [facility] Comment on above: Performed By: #### C BC #### [place] [address] Hemoglobin Ql (U) MODERATE(2+) Abnormal NEGATIVE [facility] Comment on above: Performed By: #### C BC #### [place] [address] Ketones Ql (U) Negative Normal NEGATIVE [facility] Comment on above: Performed By: #### C BC #### [place] [address] Leukocyte esterase Test strip Ql (U) Negative Normal NEGATIVE [facility] Comment on above: Performed By: #### C BC #### [place] [address] Nitrite Ql (U) Negative Normal NEGATIVE [facility] Comment on above: Performed By: #### C BC #### [place] [id number] pH (U) 6.0 [pH] Normal 5.0 - 8.0 [facility] Comment on above: Performed By: #### C BC #### [place] [address] Protein Ql (U) 100(2+) Abnormal NEGATIVE [facility] Comment on above: Performed By: #### C BC #### [place] [id number] Specific gravity (U) [Rel density] 1.018 Normal 1.005 - 1.035 [facility] Comment on above: Performed By: #### C BC #### [address] [address] Urobilinogen (U) [Mass/Vol] mg/dL Normal 0.0 - 1.9 [facility] Comment on above: Performed By: #### C BC #### [place] [address] [place] [address] Color (U) Yellow See Below [facility] [address] [place] Work Phone: [phone] Comment on above: Reference Range: STR AW,YELLOW Glucose Ql (U) Negative NEGATIVE [facility] [address] [place] Work Phone: [phone] Ketones Ql (U) Negative NEGATIVE [facility] [place] Work Phone: [phone] Leukocyte esterase Test strip Ql (U) Negative NEGATIVE [facility] [address] [place] Work Phone: [phone] pH (U) 6.0 [pH] 5.0 - 8.0 [facility] [place] Work Phone: [phone] Protein (U) [Mass/Vol] 100(2+) Abnormal NEGATIVE [facility] [place] Work Phone: [phone] RBC (U) [#/Vol] MODERATE(2+) Abnormal NEGATIVE [facility] [employer] Work Phone: [phone] Specific gravity (U) [Rel density] 1.018 1 See Below [facility] [address] [place] Work Phone: [phone] Comment on above: Reference Range: 1.0 05 - 1.035 URINALYSIS WITH CULTURE IF INDICATED Negative NEGATIVE [facility] [place] Work Phone: [phone] URINALYSIS WITH CULTURE IF INDICATED <2.0 0.0 - 1.9 [facility] [place] Work Phone: [phone] URINALYSIS WITH CULTURE IF INDICATED CLEAR CLEAR [facility] [address] [place] Work Phone: [phone] US PELVISon 05-18-2023 US PELVIS Patient Name: TONI JACOBSON STUDY: US PELVIS; 05/18/2023 12:39 pm INDICATION: r/o retained products of conception . COMPARISON: None. ACCESSION NUMBER(S): [id number] ORDERING CLINICIAN: BRIJESH MANOCCHIO TECHNIQUE: Multiple multiplanar static puente scale, color and spectral waveform sonographic images of the pelvis were obtained. Transabdominal and endovaginal ultrasound was performed. FINDINGS: UTERUS: The uterus measures 12.0 x 8.1 x 10.8 cm in sagittal, AP, and transverse dimensions. No discrete myometrial mass identified on the provided images. ENDOMETRIUM: The central endometrial complex is markedly thickened and heterogeneous in echogenicity, measuring 4.9 cm in dual layer thickness. In addition, there is flow along the periphery on Doppler imaging. The findings are compatible with retained products of conception. RIGHT ADNEXA: The right ovary is not identified on today's examination. LEFT ADNEXA: The left ovary measures 3.5 x 2.0 x 2.6 cm and demonstrates flow on Doppler imaging. It appears sonographically unremarkable. CUL DE SAC: No significant free fluid. IMPRESSION: Markedly thickened and heterogeneous endometrium, measuring up to 4.9 cm in dual layer thickness, with flow along its periphery, suggesting retained products of conception. Electronically signed by: HE DIXON MD [facility] Urinalysis, Microscopicon Urinalysis, Microscopic 1+ [facility] [employer] Work Phone: Urinalysis, Microscopic <1 [facility] [employer] Work Phone: [phone] Urinalysis, Microscopic 40 {/HPF} Abnormal 0-5 [facility] [employer] Work Phone: Urinalysis, Microscopic None 0-5 [facility] [employer] Work Phone: Rehab Note-individual therap yon 05-07-2023 Rehab Note-individual therapy Rehab: Info: Disciplinephysical therapist Mode of Treatmentphysical therapy; individual therapy Time IN11:25 Time OUT11:40 Total Treatment [id number] Patient in ... at end of sessionup in room caring for her baby Communicated with ... at end of sessionbedside nurse Patient Effortexcellent Symptoms Noted During/After Treatmentnone Treatment Considerations/Commentsp atient and baby being discharged today Patient/Family/Caregiver Comments/Observationspat ient reports she feels much better than yesterday with less pain. states she forgot to do her kegels. Asked PT to check to see if she remembered how to do them correctly. patient states she will likely pursue outpatient PT to help her get back in shape as she states she did have urinary control issues prior to as well Pre Treatment Commentsno concerns Vision/Cognition: Orientation Status (Cognition)oriented x 3 Mobility/Tone: Comment, Bed Mobilitypatient log rolling and transitioning sidelying to/from sit with sitting up and laying down independently Motor: Comment, Therapeutic ExerciseMET TO correct L anterior innominate (hooklying with resiting hip flexion on L and hip extension pushing into bed on RLE) f/b reverse Shotgun f/b gentle kegels to stabilize basic kegels: hooklying with therapist palpating LEvator Ani at gluteal cleft for feedback and instruction and cues. patient able to very lightly isolate and contract (initially compensating with glutes). Imagery and verbal cues given to help patient understand how to perform. Re-Instructed in 10 reps 3x/day for independent program as able ; instructed in 3 sec hold x10 reps1x/day. Instructed in 2-level elevator kegels for home program as well. Handout on kegels given to patient. Sensory: Comment, Pre/Post Treatment Painpain controlled presently Health: Observed Emotional Statecooperative; pleasant Plan of Care Reviewed Withpatient Outcomes Tools: Turning from your back to your side while in a flat bed without using bedrails none Moving from lying on your back to sitting on the side of a flat bed without using bedrailsnone Moving to and from bed to chair (including a wheelchair)none Standing up from a chair using your arms (e.g. wheelchair or bedside chair) none To walk in hospital roomnone Climbing 3-5 steps with railingnone AM-PAC (PT) Total Score24 Education: Learnerpatient Barriers to Learningno barrier Methodverbal Outcome Evaluation2=meets goals/outcomes Topichome program; discharge recommendations including destination and/or equipment Education - Topicbasic, long-hold, elevator kegels with handout given Outcome Summary: Progress: Physical Therapyprogress toward functional goals as expected Outcome Summary: Physical Therapypatient better overall today regarding pain. Patient up in room moving more easily. Reports she did forget to perform kegels for independent exercise. Patient did have mild functional leg length discrepancy again today. PT corrected pelvic malalignment with MET and then had patient perform kegels to stabilize pelvis. Patient performing kegels correctly with cues. Home program handout given and instructions given for patient to continue with kegels at home. patient utilizing bed mobility/transition techniques independently that PT had instructed patient in yesterday. Patient anticipates DC home today. She is interested in outpatient PT to improve core strength and reduce urinary control deficits. Electronic Signatures: Delia Govea (PT) (Signed 07-May-2023 11:48) Authored: Info, Vision/Cognition, Mobility/Tone, Motor, Sensory, Health, Outcomes Tools, Education, Outcome Summary Last Updated: 07-May-2023 11:48 by Delia Govea (PT) Normal [facility] CBCon 05-06-2023 Erythrocyte distribution width (RBC) [Ratio] 14.4 % Normal 11.5 - 14.5 [facility] Comment on above: Performed By: #### C BC #### [place] [id number] Hematocrit (Bld) [Volume fraction] 33.9 % Low 36.0 - 46.0 [facility] Comment on above: Performed By: #### C BC #### [address] [address] Hemoglobin (Bld) [Mass/Vol] 10.7 g/dL Low 12.0 - 16.0 [facility] Comment on above: Performed By: #### C BC #### [address] [address] MCHC (RBC) [Mass/Vol] 31.6 g/dL Low 32.0 - 36.0 [facility] Comment on above: Performed By: #### C BC #### [address] [address] MCV (RBC) [Entitic vol] 91 fL Normal 80 - 100 [facility] Comment on above: Performed By: #### C BC #### [address] [address] Platelets (Bld) [#/Vol] 215 10*3/uL Normal 150 - 450 [facility] Comment on above: Performed By: #### C BC #### [address] [address] RBC 3.73 x10E12/L Low 4.00 - 5.20 [facility] Comment on above: Performed By: #### C BC #### [address] [address] WBC (Bld) [#/Vol] 12.1 10*3/uL High 4.4 - 11.3 [facility] Comment on above: Performed By: #### C BC #### [address] [address] Daily Progress Note - OB-Pos t-partumon 05-06-2023 Daily Progress Note - [id number] Current Stage: Stage: Post- Subjective Data: Post : Ambulate: Yes Flatus: Not Applicable Tolerate Diet: Yes Lochia: Moderate : Nury is day #1. She reports that she did not sleep well last night. She reports that her bleeding is moderate although the nurses have reassured her that it is normal. Yesterday she was having trouble with mobility. Today she feels much better but is still agreeable to having physical therapy evaluate her. She is both breast-feeding and bottlefeeding. Tolerating diet well Objective Information: Objective Information: T PRBPMAPSpO2 [id number]/136738% Date/Time05/06 8: 8: 8: 8: 8: 8:37 Range(36.3C - 37C ) (61 - 113 ) (14 - 20 ) (81 - 148 )/ (51 - 86 ) (60 - 105 ) (90% - 100% ) Highest temp of 37 C was recorded at 05/05 8:32 Pain reported at 05/06 8:37: sleeping ---- Intake and Output ----- Mn/Dy/Year TimeIntakeOutputNet May 05, 2023 10:00 [id number] May 05, 2023 2:00 [id number] The Intake and Output Totals for the last 24 hours are: IntakeOutputNet [id number] Physical Exam: Constitutional: Laying in bed easily arousable Obstetric: Uterine fundus firm below the umbilicus Head/Neck: Good range of motion Respiratory/Thorax: Clear to auscultation Cardiovascular: Regular rate and rhythm Genitourinary: Perineum a small amount of blood in on the pad no bleeding produced with fundal pressure Musculoskeletal: Good mobility Psychological: Appropriately oriented Recent Lab Results: Results: CBC: 05/06/2023 05:23 \ Hgb / \ 10.7 L / WBC Plt 12.1 H 215 / Hct \ / 33.9 L \ RBC: 3.73 L MCV: 91 Assessment and Plan: Assessment: German is day #1 after a vaginal delivery. Overall she appears to be doing well. Continue routine care. Awaiting physical therapy evaluation for flank discomfort with mobility. Electronic Signatures: Cliff Aguirre) (Signed 06-May-2023 08:56) Authored: Current Stage, Subjective Data, Objective Data, Assessment and Plan, Note Completion Last Updated: 06-May-2023 08:56 by Cliff Aguirre) [facility] Discharge [id number] Discharge Profile2 Discharge Orders: Anticipated Discharge Date: Anticipated Discharge [id number] Problem List: Admitting Dx: : Catalog Name: Encounter for supervision of normal , unspecified, unspecified trimester Code Status: Code Status at Discharge: Full Code DNR Order Additional Instructions (peds only): : Call 911: Call 911 or go to the nearest emergency room RIGHT AWAY if you have:. Chest pain or pressure; heart racing. Shortness of breath or difficulty breathing. Seizures; change in alertness or confusion. Thoughts of hurting yourself or someone else. Call Provider: Call your OB Provider if you have: (If you can't reach your healthcare provider, call 911 or go to an emergency room). Heavy bleeding. Soaking a large pad every hour or passing large clots. Incision that is not healing, is red or more painful, or has pus (if you have an incision). Red or swollen leg that is painful or warm to touch. Temperature of 100.4 degrees F or higher; bad-smelling vaginal blood or discharge. Headache that does not get better, even after taking medicine; bad headache with vision changes; pain in the upper right area of your belly. Signs of Depression. Examples include: 1. Persistent sadness 2. Frequent crying 3. Sleep problems 4. Excessive worrying 5. Feeling unable to cope. Red or swollen breast that is painful or warm to touch. Pain, burning, or difficulty with emptying your bladder. Severe constipation (more than 5 days). Trust your instincts. Always get medical care if you are not feeling well or have questions or concerns.. Activity: Return to normal activity as tolerated. Patient Instructions: Pelvic Rest: DO NOT place anything in vagina until cleared by OB Provider. May NOT return to school/work until cleared by OB Provider. Diet: Regular. Follow-Up - OB Provider: Physician/Dept/ServiceOB Provider Dr. Aguirre Call to Schedule in6 weeks LocationOffice Electronic Signatures: Cliff Agiurre) (Signed 06-May-2023 19:07) Authored: Discharge Orders, , Gold Form - Hairspring Setter Summary Last Updated: 06-May-2023 19:07 by Cliff Aguirre) Normal [facility] Hearing Screen - Newborn[place] 0 05-06-2023 Hearing Screen - [place] This report has been cancelled. Normal [facility] Laboratory - Hematology and Cell countson 05-06-2023 Erythrocyte distribution width (RBC) [Ratio] 14.4 % See Below [facility] [employer] [address] [employer] Work Phone: [phone] Comment on above: Reference Range: 11. 5 - 14.5 Hematocrit (Bld) [Volume fraction] 33.9 % below low threshold See Below [facility] [address] [employer] Work Phone: Comment on above: Reference Range: 36. 0 - 46.0 Hemoglobin (Bld) [Mass/Vol] 10.7 g/dL below low threshold See Below [facility] [address] [employer] Work Phone: Comment on above: Reference Range: 12. 0 - 16.0 MCHC (RBC) [Mass/Vol] 31.6 g/dL below low threshold See Below [facility] [address] [employer] Work Phone: [phone] Comment on above: Reference Range: 32. 0 - 36.0 MCV (RBC) [Entitic vol] 91 fL 80 - 100 [facility] [address] [employer] Work Phone: [phone] Platelets (Bld) [#/Vol] 215 10*3/uL 150 - 450 [facility] [address] [employer] Work Phone: [phone] RBC (Bld) [#/Vol] 3.73 {x10E12/L} below low threshold See Below [facility] [address] [employer] Work Phone: [phone] Comment on above: Reference Range: 4.0 0 - 5.20 WBC (Bld) [#/Vol] 12.1 10*3/uL above high threshold 4.4 - 11.3 [facility] [address] [employer] Work Phone: [phone] Order Reconciliationon 05-06 Order Reconciliation Page 1 Discharge Reconciliation Document Reconciliation Type: Discharge requested on behalf of Cliff Aguirre (Physician) done by Cliff Aguirre) Discharge - Reconciliation: 06-May-2023 19:05 by: Cliff Aguirre) Current OrdersDateHOME MEDICATIONS AT DISCHARGE DateReconciliation Comment/ Additional Information Acetaminophen Tablet (TYLENOL)DOSE = 975 mg Oral Every 6 HoursClinician Notes: Give with Ibuprofen. 05-May-2023 11:38 acetaminophen 325 mg oral tablet 3 tab(s) orally every 6 hours 06-May-2023 19:04 Acetaminophen is continued as acetaminophen 325 mg oral tablet Acetaminophen Rectal Suppository (TYLENOL)DOSE = 650 mg Rectal Once, PRN Initial pain mgmt following deliveryClinician Notes: Administer in the OR. 04-May-2023 22:20 Acetaminophen Rectal is not required Benzocaine 20% - Menthol 0.5% Topical Cameron (DERMOPLAST)DOSE = 1 application(s) Topical 4 Times a Day, PRN DiscomfortApply to Perianal Area 05-May-2023 11:38 Benzocaine 20% - Menthol 0.5% Topical is not required Bisacodyl Rectal Suppository (DULCOLAX)DOSE = 10 mg Rectal Daily, PRN Severe constipation 05-May-2023 11:38 Bisacodyl Rectal is not required Butorphanol Injectable (STADOL)DOSE = 1 mg IntraVenous Push Every 4 Hours, PRN Pain - Mod (4-6) 04-May-2023 22:23 Butorphanol Injectable is not required Carboprost IntraMuscular (HEMABATE)DOSE = 250 microgram(s) IntraMuscular Once, PRN post bleeding in non-asthmatic patientClinician Notes: Consult provider prior to administration. 04-May-2023 22:20 Carboprost IntraMuscular is not required diphenhydrAMINE Capsule (BENADRYL)DOSE = 25 mg Oral Every 6 Hours, PRN Itching 05-May-2023 11:38 diphenhydrAMINE is not required Fent 4mcg/ml Bup 1.5mg/ml TV 20ml_IPRO SolutionGive 25 mL, IntraVenous, ONCE 06-May-2023 15:54 Fent 4mcg/ml Bup 1.5mg/ml TV 20ml_IPRO is not required hydrALAZINE (APRESOLINE) Injectable DOSE = 5 mg IntraVenous Push Once, PRN Acute-onset, severe HTN w/out known, suspected CADClinician Notes: Consult provider prior to administration. Push over more than 2 minutes. Systolic greater than or equal to 16 04-May-2023 22:17 hydrALAZINE (APRESOLINE) Injectable is not required Ibuprofen Tablet (ADVIL, MOTRIN)DOSE = 600 mg Oral Every 6 HoursClinician Notes: Give with Acetaminophen. 05-May-2023 11:38 ibuprofen 600 mg oral tablet 1 tab(s) orally every 6 hours 06-May-2023 19:04 Prescription is created for ibuprofen 600 mg oral tablet Labetalol Injectable (TRANDATE)DOSE = 20 mg IntraVenous Push Once, PRN Acute-onset, sev HTN w/o active asthma/ jaz<60Clinician Notes: Consult provider prior to administration. Push over more than 2 minutes. Systolic greater than or equal to 160 OR 04-May-2023 22:17 Labetalol Injectable is not required Lactated Ringers Infusion IV Bag Volume = 1,000 mL Run at: 125 mL/hr IntraVenous 04-May-2023 22:17 Lactated Ringers Infusion is not required Lactated Ringers Infusion IV Bag Volume = 1,000 mL Run at: 125 mL/hr IntraVenous 04-May-2023 22:20 Lactated Ringers Infusion is not required Lactated Ringers IV Bolus DOSE = 500 mL Once, PRN resuscitationInfuse over 30 minute(s) 04-May-2023 22:20 Lactated Ringers IV Bolus is not required Lanolin Topical Ointment (LANSINOH)DOSE = 1 application(s) Topical Every 24 Hours, PRN Dry SkinApply to NippleClinician Notes: After and PRN 05-May-2023 11:38 Lanolin Topical is not required Loperamide Capsule (IMODIUM)DOSE = 4 mg Oral Every 2 Hours, PRN If Carboprost given or loose stoolsClinician Notes: Max dose of 16mg / 24 hours 04-May-2023 22:20 Loperamide is not required Magnesium Hydroxide -Al Hydrox -Simethicone Oral Liquid (MAALOX)DOSE = 30 mL Oral Every 4 Hours, PRN Indigestion 05-May-2023 11:38 Magnesium Hydroxide -Al Hydrox -Simethicone Oral Liquid is not required Measles -Mumps -Rubella (Live) MMR Vaccine DOSE = 0.5 mL SubCutaneous Once, PRN if patient screen is non- immune or equivocalClinician Notes: administer if patient screen is non- immune or equivocal 05-May-2023 11:38 Measles -Mumps -Rubella (Live) MMR Vaccine is not required Methylergonovine Injectable (METHERGINE)DOSE = 0.2 mg IntraMuscular Once, PRN PPH in pts w/o HTN or receiving ART for HIV mgmt.Clinician Notes: Consult provider prior to administration.Notes from Pharmacy: Reproductive Risk - Single Nitrile Glove 04-May-2023 22:20 Methylergonovine Injectable is not required Metoclopramide Injectable (REGLAN)DOSE = 10 mg IntraVenous Push Every 6 Hours, PRN persistent PONV if first line ineffective 05-May-2023 11:38 Metoclopramide Injectable is not required miSOPROStol Rectal Tablet (Cytotec)DOSE = 800 microgram(s) Rectal Once, PRN post bleedingClinician Notes: Consult provider prior to administration.Notes from Pharmacy: Reproductive Risk - Single Nitrile Glove 04-May-2023 22:20 miSOPROStol Rectal is not required NIFEdipine (PROCARDIA) Immediate Release Capsul (more content not included)... Normal [facility] PT Evaluation v2-individual therapyon 05-06-2023 PT Evaluation v2-individual therapy Rehab: Info: Mode of Treatmentindividual therapy; physical therapy Time IN10:00 Time OUT10:40 Total Treatment [id number] Patient in ... at end of sessionbed, 2 railings up; call light in reach bed nurse present Communicated with ... at end of sessionbedside nurse Patient Effortgood Symptoms Noted During/After Treatmentnone Patient Profile Reviewedyes Onset of Illness/Injury or Date of [id number] Reason for Referralimpaired mobility Referring PhysicianCarmona Patient/Family/Caregiver Comments/ObservationsPer nursing ok to see patient. Patient asleep in room on arrival but easily awakens with PT introduction. patient agreeable to PT. patient states she is having a lot of pain all in her pelvic area and points to torso and pelvis. STates she did have some pain during her . States she has had 4 vaginal deliveries with most recent yesterday. states she has been having a lot of trouble getting in and out of bed and pain with ambulation. Pertinent History of Current Functional Problemvaginal delivery on 05/05/23 PMH: 3 prior vaginal deliveries (2,3,7 years ago) Hearing Precautions/LimitationsW [place] Precautions/Limitationsv aginal delivery 05/05/23 Limitations/Impairmentse ndurance Developmental Statusindependent, age appropriate Ambulation Skills - Previous Level of Functionindependent Transfer Skills - Previous Level of Functionindependent ADL Skills - Previous Level of Functionindependent; independent with mobility and ADLS. Cares for other small children. Denies any previous mobility issues Pre Treatment Commentsno concerns noted Vision/Cognition: Orientation Status (Cognition)oriented x 3 ROM: Lower Extremity: Range of Motionleft lower extremity ROM WFL; right lower extremity ROM WFL; guarded/slow movements Mobility/Tone: Bed Mobility Assessment/Interventions supine to sit; sit to supine Jgycet-tm-Aju Littcarr (Bed Mobility)standby assist; 1 person assist Tbd-xx-Tmwkua Littcarr (Bed Mobility)moderate assist (50% patient effort); to assist legs back onto bed (R needing more assist than left); 1 person assist Comment, Bed MobilityPT had patient trial a log roll to side and sidelying to sit and then sit to sidelying when she returned to bed with Angel cues and instruction. patient able to perform sidelying/sit transition much easier than how she was previously attempting to get in/out of bed Transfer Assessment/Interventions stand to sit transfer; sit to stand transfer Comment, Transfersindependent but painful Sit-Stand Littcarr (Transfers)independent Stand-Sit Littcarr (Transfers)independent Comment, Gait/Stairs Trainingambulated into and out of bathroom independently but with significant limp noted, shortened stride and tilted pelvis. AFter manual intervention patient able to ambulate with equal stride, level pelvis and reduced pain Impairments Impacting Function (Mobility)pain; strength; endurance/activity tolerance Motor: Comment, Therapeutic ExerciseMET TO correct L anterior innominate (hooklying with resiting hip flexion on L and hip extension pushing into bed on RLE) f/b reverse Shotgun f/b gentle kegels to stabilize basic kegels: hooklying with therapist palpating LEvator Ani at gluteal cleft for feedback and instruction and cues. patient able to very lightly isolate and contract (initially compensating with glutes). Imagery and verbal cues given to help patient understand how to perform. Instructed in 10 reps 3x/day for independent program as able Sensory: Comment, Pre/Post Treatment Painpatient c/o pain (mod to significant) in pelvic area prior to treatment. AFter treatment patient reports pain significantly reduced upon standing and with mobility Health: Observed Emotional Statecooperative; pleasant Plan of Care Reviewed Withpatient Impression: Criteria for Skilled Therapeutic Interventions Met (PT Eval)yes; treatment indicated PT Diagnosisdifficulty walking Physical Therapy Prognosisgood Functional Level at Time of Evaluation (PT Eval)functional leg length discrepancy noted with left anteriorly rotated innominate compared to right (standing iliac crest height significantly asymmetrical). significant pain and difficulty with transfers, bed mobility and ambulation. PT performed pelvic correction with MET and then instructed patient in kegels to stabilize pelvis with PT palpating at gluteal cleft in hooklying for feedback and instruction of patient. Patient/Family Goals Statement (PT Eval)improve moblity System Pathology/Pathophysiolog y Noted (PT Eval)musculoskeletal Impairments Found (PT Eval)aerobic capacity/endurance; gait, locomotion, and balance; muscle performance Functional Limitations in Following Categoriesself-care; home management; mobility/gait; stairs; community/leisure Assessment (PT Eval)Skilled PT intervention is indicated due to patient presents with deficits in bed mobil (more content not included)... Normal [facility] Admission Risk Screen - [place] 05-05-2023 Admission Risk Screen - OB Allergies: Allergies: No Known Allergies: Patient Verification: New W ID Band Applied in my Departmentyes Patient Identity Verified Bypatient ID Band FULL Name, include Middle, spelling matches patient's ID used for verificationyes ID Band Matches Patient ID used for Verficationyes ID Band MRN Matches EMR MRNyes Visitor Restriction: Coronavirus Visitor Restriction: Reasonable restrictions to in-person visitors will be observed due to current coronavirus pandemic. Travel History: COVID-19 Screening Completedno exposure or symptoms Travel or Exposure Past 30 DaysNO travel to International locations in the past 30 days Advance Directive: Advance Directive/DNRno Advance Directive Information Givenpatient/family declined García Fall Screen: History of falling (immediate or previous)no (0) Secondary Diagnosisno (0) Intravenous Therapy/ Heparin/Saline Lockyes (20) Gait/Transferringnormal/ bedrest/wheelchair (0) Ambulatory Aidsnone/bedrest/nurse assist (0) Mental Statusoriented to own ability (0) Score: Low risk (<25). Moderate risk (25-44). High risk (>44).20 García InterventionsLOW INTERVENTIONS: *patient oriented to surroundings and call system, * patient/family falls education completed and documented, *patients fall status communicated during bedside handoff, *whiteboard updated, *mode of toileting discussed with patient, *bed in low position with brakes locked, *call light in reach, * non-skid footwear Functional screen: Functional Screen: In the recent/past 2-4 weeks, patient or family have noticedno issues that require a rehabilitation consult at this time Learning Assessment (Patient): Patient is Able to be Assessed for Learningyes Factors Influencing Readiness to Learninterest in learning; pain Factors that Impact Ability to Learnnone Devices/Methods Used to Communicateglasses Learning Preferencesverbal instruction; skill demonstration; written material; individual instruction Cultural Considerationsnone Developmental Considerationsnone Mandaen Considerationsnone Other Learnerssignificant other Learning Assessment (Other Learner): Other learner availableyes... Learnersignificant other; Link Granadod Factors Influencing Readiness to Learninterest in learning Factors that Impact Ability to Learnnone Devices/Methods Used to Communicatenone Learning Preferencesindividual instruction, skill demonstration, verbal instruction, video, written material Cultural Considerationsnone Developmental Considerationsnone Mandaen Considerationsnone Nutrition Risk Screen: Nutrition Risk Screenno indicators present Nutrition Consult needed this visitno Can Patient Participate in Room Serviceyes Pain Screen: Pain Control Method: Laborepidural Pain Control Method: Postpartummedication; cold application; relaxation; rest Pain Scalenumerical 0-10 Pain Scale Educationteaching provided Acceptable Pain Level5 = Moderate Presence of Painyes 5 Expression of Pain (nonverbal)grimace, restless, squirming Chronic Painno Skin - Everett Scale: Everett Scale (daily): Everett: Sensory Perception (response to environment)(4) no impairment Everett: Moisture (degree skin exposed to moisture)(4) rarely moist Everett: Activity (ability to walk)(4) walks frequently Everett: Mobility (amount/control of body movement)(4) no limitation Everett: Nutrition (quality of food intake)(3) adequate Everett: Friction and Shear(3) no apparent problem Everett: Score22 Pressure Injury Present on Admissionno Spiritual Screen: Are there any cultural, spiritual, mormonism practices/values/needs that are important for us to knowno Do you want a visit/item from Pastoral [facility]o Would you like your Coating Engineer/Double Ending Machine Operator notifiedno Depression Screen: During the past month, have you often been bothered by feeling down, depressed or hopelessno During the past month, have you often had little interest or pleasure in doing thingsno Have you had any thoughts of harming anyone elseno [place] Suicide: Risk Screen Not Applicable/Able to Answerable to be screened In the Past Month: Have you wished you were or could go to sleep and not wake upno In the Past Month: Have you had any actual thoughts of killing yourselfno Lifetime: Have you ever done, started to do, or prepared to do anything to end your lifeno [place] Suicide Risknegative Family Violence Screen: Are you or have you been threatened or abused physically, emotionally, or sexually by anyoneno Has anyone ever threatened to hurt your family or your petsno Does anyone try to keep you from having/contacting other friends or doing things outside your homeno Do you feel UNSAFE going back to the place where you are livingno Do you feel anyone has exploited or taken advantage of you financially or of your personal propertyno Clinical assessment: Are there a (more content not included)... Normal [facility] CBCon 05-05-2023 Erythrocyte distribution width (RBC) [Ratio] 14.1 % Normal 11.5 - 14.5 [facility] Comment on above: Performed By: #### C BC #### [place] [id number] Hematocrit (Bld) [Volume fraction] 33.9 % Low 36.0 - 46.0 [facility] Comment on above: Performed By: #### C BC #### [place] [id number] Hemoglobin (Bld) [Mass/Vol] 10.8 g/dL Low 12.0 - 16.0 [facility] Comment on above: Performed By: #### C BC #### [place] [id number] MCHC (RBC) [Mass/Vol] 31.9 g/dL Low 32.0 - 36.0 [facility] Comment on above: Performed By: #### C BC #### [address] [address] MCV (RBC) [Entitic vol] 89 fL Normal 80 - 100 [facility] Comment on above: Performed By: #### C BC #### [address] [address] Platelets (Bld) [#/Vol] 216 10*3/uL Normal 150 - 450 [facility] Comment on above: Performed By: #### C BC #### [address] [address] RBC 3.80 x10E12/L Low 4.00 - 5.20 [facility] Comment on above: Performed By: #### C BC #### [address] [address] WBC (Bld) [#/Vol] 9.8 10*3/uL Normal 4.4 - 11.3 [facility] Comment on above: Performed By: #### C #### [facility] [address] [place] [address] Delivery Recordon 05-05-2023 Delivery Record Lab Tests/Results: Labs: Labs: Blood Type: not ordered Chlamydia Date: 23-Dec-2022 Chlamydia Results: negative Gonorrhea Date: 23-Dec-2022 Gonorrhea Results: negative Strep Results: not ordered GCT (dd-mmm-yy): 17-Mar-2023 GCT result: 100 HBsAG Date: 30-Dec-2022 HBsAG Results: negative HIV Date: 30-Dec-2022 HIV Results: negative Rubella Date: 30-Dec-2022 Rubella Results: nonimmune Rubella Comments: Result Value Negative Syphilis (mmm-dd-yyyy): 30-Dec-2022 Syphilis Results: negative Maternal Urine Toxicology Screen Date: 30-Dec-2022 Toxicology Screen Comments: Negative on Dec 30, 2022 Maternal Delivery Information: Vaginal Delivery Information: Counts Correctyes Circulating Karsten Grewal RN [place] Delivery Information: Geriatric Psychiatrist Information: Baby's Post Discharge Care Provider (Provider Name, Address and Phone Number) LICENSED PESTICIDE APPLICATOR Name of Inhouse PediatricianDr. Boyer [place] A Delivery Information: Baby A Delivery: Rupture of Membranes date/[id number] 20:07 Amniotic Fluid Colorclear Delivery Typevaginal delivery Delivery Locationlabor and delivery Delivery Date/[id number] 11:23 Delivery Date/Time Verified ByKomal Grewal RN Length of Time of ROM (rounded down to nearest hour)15 Sexmale Identification Band [id number] Electronic Transponder [id number] ID Bands Verified byBobby Grewal RN/ Luz Leone RN 4th ID band toFOB Weight (kg)3.42 kilogram(s) Length (cm)50.75 centimeter(s) Head Circumference (cm)33 centimeter(s) Chest Circumference (cm)34 Delivery of Placenta (hh:mm)11:31 Baby A: Placenta disposaldiscarded 1 Min: Heart Rat[place]ore than 100 beats/min Respiratory Rategood, crying Muscle Tonewell flexed Reflex Irritabilitycough or sneeze Colorbody pink, extremities blue 1 Minute Score, Baby A9 Apgars assessed bySavage Leone RN 5 Min: Heart Ratemore than 100 beats/min Respiratory Rategood, crying Muscle Tonewell flexed Reflex Irritabilitycough or sneeze Colorbody pink, extremities blue 5 Minute Score, Baby A9 Apgars assessed bySavage Leone RN Resuscitation Efforts: Vigorous at Birthyes Resuscitation Effortsnone required Baby A: Transfer Baby A: Transfer toRemains with mother Baby A: Labs sentCord Blood Workup (Type/Rh/Antibody), G6PD Delivery Team: Baby NurseSavage Leone RN Electronic Signatures: Komal Grewal (CLIN COOR) (Signed 05-May-2023 12:47) Authored: Lab Tests/Results, Maternal Delivery Information, [place] Delivery Information Last Updated: 05-May-2023 12:47 by Komal Grewal (CLIN COOR) [facility] Discharge Planning [id number] 05-05-2023 Discharge Planning Note2 Discharge Planning: Anticipated Discharge [id number] Discharge Planning Date and Time: 05/04/2023 @ 2140 Discharge Planning initiated on admission and formally reevaluated at this time. Patient independent with ambulation and ADL's prior to admission. Additional home going needs anticipated at this time: #### Handouts given to and reviewed with patient/caregiver per unit folder standards. Patient verbalizes understanding and denies any other discharge needs. Plan to continue to assess home going/discharge needs. Coordinate with interdisciplinary team as needed. Signature: #### Date and Time: 05/07/23 According to plan, patient discharged home with significant other Discharge instructions printed and reviewed. Teaching provided on new medications, self-care, signs and symptoms to report, and follow-up appointments. Patient verbalized understanding and denies any questions at time of discharge. Patient instructed to call provider with any additional questions after discharge. Signature: Jayson Espinoza RN, IBCLC Assessment: Discharge Planning Assessment [id number] Discharge Documentation: Discharge/Transfer Date/[id number] 14:15 Discharged Accompanied Bysignificant other/partner Transportation Methodprivate car Discharge Modeambulatory Code StatusCode Status order at time of discharge: Full Code Discharge Order Writtenyes [place] DNR Form Sent with Patient and/or Familyno Final Disposition.Home Electronic Signatures: Dione EspinozaRN) (Signed 07-May-2023 14:20) Authored: Discharge Planning, Discharge Documentation Radha Breaux (RN) (Signed 04-May-2023 22:33) Authored: Discharge Planning, Assessment Last Updated: 07-May-2023 14:20 by Dione Espinoza (RN) Normal [facility] JANE.RUPTURE OF MEMB.on JANE.RUPTURE OF MEMB. Positive Abnormal Negative [facility] Comment on above: Performed By: #### S YPHR #### [facility] [address] [place] [address] Patient Profile - OB v3on Patient Profile - OB v3 Profile: Initial Info: How to be AddressedTaccarrie Other Parent Plan for Involvementyes Spoken Language PreferredEnglish Source of Informationpatient Reason for admission this visitexpected delivery Primary Contact Name and NumberLink Fisher Other Contact Names and [phone] Wants Family/Rep Notified of Admissionn/a; family present Notify PCPdo not notify PCP Informed of Patient Visiting Rightsyes Limitations on Visitors/Phone Callsnone Temporary Family Living Arrangements (While Hospitalized)none needed Arrived Fromhome Was Admitted To in Past 90 Daysnone Patient Belongingsremains with patient Patient Belongings Remaining with Patientclothing; cell phone/electronics Home Meds have been Reviewed and Verified with Patient/Familyyes Medications Brought to Hospitalno Info: Gravida4 Term Deliveries3 Deliveries0 Abortions0 Living Children2 Patient stated [id number] Calculation of EGA based on patient stated EDD37.3 Records availableyes Trimester Care Initiatedfirst Care ProviderDr. Aguirre Current RisksGroup B strep positive Previous live (any gestational age)yes Most Recent Live [id number] All Previous Delivery Type(s)vaginal delivery All Previous /Delivery ComplicationsGroup B strep positive Planno Childbirth Education Classes Planned or Attendednone Contraceptionnone 's NameRaven Vannesacr Baby's Post Discharge Care Provider (Provider Name, Address and Phone Number) LICENSED PESTICIDE APPLICATOR Feedingbreastmilk and formula Benefits of Breast Milk DiscussionThe benefits of exclusive breast milk feeding and the risk of adding formula have been discussed with patient / mother. Discussion Date / [id number] 23:55 Previous Experienceno General Health: Current Weight in kg85 kilogram(s) Current Weight in cav049.3 pound(s) Weight Methodactual (measured) Scale Typestanding Pre Weight (lb)132 pound(s) Total Weight Gain (lb)55 pound(s) Height in feet5 feet Height in inches2.95 inch(es) Height in cm159.8 centimeter(s) Height Methodstated BMI (kg/m2)33.286 square meter Patient or Family Member Reaction to Anesthesianever had anesthesia; no previous family member reaction Blood Avoidance/Restrictionsno ne Previous Transfusion Reactionnot applicable Rsp Based Care: How would you like to participate in your carekeep notified What is the number one concern for you during this hospitalizationhealthy mom and healthy baby What is the most important thing we can do to support you during this hospitalizationbe there for me Is there anything we need to know to best care for younone Commentanxiety about after Substance: Smoking Statusnever smoker Alcohol Usedenies Drug Usedenies Drug 2 Usedenies Health Mgmt: Symptoms/Conditions Managed at Homenone Barriers to Managing Healthnone Relationship/Environ: Primary Source of Support/Comfortsignifica nt other; child(luz); friend; parent Lives Withsignificant other Living Arrangementshouse Significant Exposurenone Resource/Environmental Concernsnone Anticipated Transition Toovid Services Anticipated at Transitionnone Additional Information: Information Review: Allergies and Significant Events have been Reviewed and Verified with Patient/Familyyes Allergy, Intolerance, Adverse Event: Allergies: No Known Allergies: Active Electronic Signatures: David Peterson (NANETTE) (Signed 05-May-2023 01:24) Authored: Initial Info, Info, General Health, Rsp Based Care, Substance, Health Mgmt, Relationship/Environ, Additional Information Radha Breaux) (Signed 04-May-2023 22:31) Authored: General Health, Additional Information Last Updated: 05-May-2023 01:24 by David Peterson (NANETTE) Normal [facility] SYPHILIS SCREENING WITH REFL EXon 05-05-2023 SYPHILIS TOTAL AB Non-Reactive Normal NONREACTIVE [facility] Comment on above: Result Comment: No s erologic evidence of syphilis infection. If recent exposure is suspected, repeat syphilis testing is recommended in 2 to 4 weeks. Performed By: #### S YPHR #### [facility] [address] [place] [address] Lab Specimen Source [facility] Comment on above: Performed By: #### S YPHR #### [facility] [address] [place] [address] TYPE + SCREENon 05-05-2023 ABO TYPE O [facility] Comment on above: Performed By: #### S YPHR #### [facility] [address] [place] [address] RH TYPE Positive [facility] Comment on above: Performed By: #### S YPHR #### [facility] [address] [place] [address] Laboratory - Blood bankon ABO group Nom (Bld) O [facility] [address] [employer] Work Phone: [phone] Blood group antibody screen Ql Negative [facility] [address] [employer] Work Phone: [phone] Rh immune globulin screen (Bld) [Interp] Positive [facility] [place] [address] Work Phone: [phone] Laboratory - Hematology and Cell countson 05-04-2023 Erythrocyte distribution width (RBC) [Ratio] 14.1 % See Below [facility] [address] [employer] Work Phone: [phone] Comment on above: Reference Range: 11. 5 - 14.5 Hematocrit (Bld) [Volume fraction] 33.9 % below low threshold See Below [facility] [address] [employer] Work Phone: [phone] Comment on above: Reference Range: 36. 0 - 46.0 Hemoglobin (Bld) [Mass/Vol] 10.8 g/dL below low threshold See Below [facility] [address] [employer] Work Phone: [phone] Comment on above: Reference Range: 12. 0 - 16.0 MCHC (RBC) [Mass/Vol] 31.9 g/dL below low threshold See Below [facility] [address] [employer] Work Phone: [phone] Comment on above: Reference Range: 32. 0 - 36.0 MCV (RBC) [Entitic vol] 89 fL 80 - 100 [facility] [employer] Work Phone: [phone] Platelets (Bld) [#/Vol] 216 10*3/uL 150 - 450 [facility] [address] Work Phone: [phone] RBC (Bld) [#/Vol] 3.80 {x10E12/L} below low threshold See Below [facility] [employer] Work Phone: [phone] Comment on above: Reference Range: 4.0 0 - 5.20 WBC (Bld) [#/Vol] 9.8 10*3/uL 4.4 - 11.3 [facility] [place] [address] [employer] Work Phone: [phone] PREMATURE RUPTURE OF MEMBRAN [place] 05-04-2023 PREMATURE RUPTURE OF MEMBRANE Positive Abnormal Negative [facility] [place] [address] [employer] Work Phone: [phone] SYPHILIS SCREENING WITH REFL EXon 05-04-2023 T. pallidum IgG+IgM IA Ql (S) Non-Reactive See Below [facility] [place] [address] [employer] Work Phone: [phone] Comment on above: SOURCE: Reference Ra nge: NONREACTIVENo serologic evidence of syphilis infection.If recent exposure is suspected, repeat syphilis testingis recommended in 2 to 4 weeks. Cult, Genitalon 04-14-2023 Bacteria identified Aer cx Nom (Genital specimen) [facility] [place] [address] [employer] Work Phone: [phone] Cult, Urineon 04-14-2023 Bacteria identified Cx Nom (U) [facility] [place] [address] [employer] Work Phone: [phone] GENITAL CULTURE, BACT.on GENITAL CULTURE, BACT. PATIENT: TONI JACOBSON LOCATION: [facility] BILL#: [id number] : 89 AGE: SEX: F ORDERED BY: CLIFF AGUIRRE SOURCE: GENITAL COLLECTED: 04/14/23 15:02 ANTIBIOTICS AT AYNIV.: RECEIVED : 04/14/23 23:47 SITE: Vaginal R E S U L T S GENITAL CULTURE, BACT. FINAL 04/19/23 13:51 Culture examined for Group A Streptococcus, Group B Streptococcus, Neisseria gonorrhoeae and Yeast ONLY. NO Neisseria gonorrhoeae ISOLATED. ISOLATE1 : Group B streptococcus 1+ Normal [facility] Comment on above: Performed By: #### A NEMI #### [place] [address] No Panel Informationon 04-14 Please click on the link to view the study images Normal [facility] [address] [employer] Work Phone: [phone] Normal [facility] [address] [employer] Work Phone: URINE CULTURE,BACTERIALon URINE CULTURE,BACTERIAL PATIENT: TNOI JACOBSON LOCATION: C1496 BILL#: [id number] : 89 AGE: SEX: F ORDERED BY: CLIFF AGUIRRE SOURCE: URINE COLLECTED: 04/14/23 15:02 ANTIBIOTICS AT YANIV.: RECEIVED : 04/15/23 00:31 SITE: Clean Catch/Voided R E S U L T S URINE CULTURE,BACTERIAL FINAL 04/15/23 18:19 NO SIGNIFICANT GROWTH. Normal [facility] Comment on above: Performed By: #### A NEMI #### [place] [address] Cult, Genitalon 03-31-2023 Bacteria identified Aer cx Nom (Genital specimen) [facility] [address] [employer] Work Phone: GENITAL CULTURE, BACT.on GENITAL CULTURE, BACT. PATIENT: TONI JACOBSON LOCATION: C1496 BILL#: [id number] : 89 AGE: SEX: F ORDERED BY: CLIFF AGUIRRE SOURCE: GENITAL COLLECTED: 03/31/23 14:04 ANTIBIOTICS AT YANIV.: RECEIVED : 04/01/23 00:05 SITE: Vaginal R E S U L T S GENITAL CULTURE, BACT. FINAL 04/04/23 13:50 NO PATHOGENS Culture examined for Group A Streptococcus, Group B Streptococcus, Neisseria gonorrhoeae and Yeast ONLY. Normal [facility] Comment on above: Performed By: #### G ENLO #### [facility] [address] [place] [address] FERRITIN, PREGNANCYon 2022 FERRITIN, 16 ug/L Normal > 15 [facility] [place] Comment on above: Performed By: #### A NEMI #### [facility] [address] [place] [address] FOLATE, SERUM, PREGNANCYon 0 - FOLATE, SERUM, 15.3 ng/mL Normal >5.0 [facility] Comment on above: Result Comment: Low <3.4 Borderline 3.4-5.0 Normal >5.0 . Biotin interference may cause falsely elevated results. Patients taking a Biotin dose of up to 5 mg/day should refrain from taking Biotin for 24 hours before sample collection. Providers may contact their local laboratory for further information. Performed By: #### F OLPR #### [facility] [address] [place] [address] IRON + TIBC PREGNANCYon 03-01 % SATURATION, NOT CALC. Normal [facility] Comment on above: Result Comment: . Non- 25 - 45 % First Trimester 7 - 57 % Second Trimester 10 - 44 % Third Trimester 5 - 37 % Please note results will not flag based on reference ranges above. One or more analytes used in this calculation is outside of the analytical measurement range. Calculation cannot be performed. Performed By: #### I RNPR #### [facility] [address] [place] [address] IRON, 62 ug/dL Normal [facility] Comment on above: Result Comment: . Non- Female 14-17y 28 - 175 ug/dL Non- Female >=18y 35 - 150 ug/dL . First Trimester 72 - 143 ug/dL Second Trimester 44 - 178 ug/dL Third Trimester 30 - 193 ug/dL Please note results will not flag based on reference ranges above. Performed By: #### I RNPR #### [facility] [address] [place] [address] TIBC, >512 Abnormal [facility] Comment on above: Result Comment: . Non- 240 - 445 ug/dL First Trimester 278 - 403 ug/dL Second Trimester 325 - 514 ug/dL Third Trimester 359 - 609 ug/dL Please note results will not flag based on reference ranges above. Interpret results with caution. One or more analytes used in this calculation is outside of the analytical measurement range. Performed By: #### I RNPR #### [facility] [address] [place] [address] VITAMIN B12, PREGNANCYon Cobalamin (Vitamin B12) [Mass/Vol] 433 pg/mL Normal [facility] Comment on above: Result Comment: Non- 211 - 911 pg/mL First Trimester >=118 pg/mL Second Trimester >=130 pg/mL Third Trimester >= 99 pg/mL Please note results will not flag based on reference ranges above. Performed By: #### A NEMI #### [address] [address] CBC ANEMIA PANEL WITH REFLEX ,PREGNANCYon 03-17-2023 Erythrocyte distribution width (RBC) [Ratio] 13.5 % Normal 11.5 - 14.5 [facility] Comment on above: Performed By: #### A NEMI #### [address] [address] Hematocrit (Bld) [Volume fraction] 32.0 % Low 36.0 - 46.0 [facility] Comment on above: Performed By: #### A NEMI #### [address] [address] Hemoglobin (Bld) [Mass/Vol] 10.4 g/dL Low 12.0 - 16.0 [facility] Comment on above: Performed By: #### A NEMI #### [address] [address] MCHC (RBC) [Mass/Vol] 32.5 g/dL Normal 32.0 - 36.0 [facility] Comment on above: Performed By: #### A NEMI #### [address] [address] MCV (RBC) [Entitic vol] 92 fL Normal 80 - 100 [facility] Comment on above: Performed By: #### A NEMI #### [address] [address] Platelets (Bld) [#/Vol] 212 10*3/uL Normal 150 - 450 [facility] Comment on above: Performed By: #### A NEMI #### [address] [address] RBC 3.49 x10E12/L Low 4.00 - 5.20 [facility] Comment on above: Performed By: #### A NEMI #### [address] [address] REFLEX ADDED, ANEMIA PANEL FERRITIN,VTB12,FOLATE,IR ON+TIBC Normal [facility] Comment on above: Performed By: #### A NEMI #### [address] [address] WBC (Bld) [#/Vol] 11.4 10*3/uL High 4.4 - 11.3 [facility] [place] Comment on above: Performed By: #### A NEMI #### [address] [address] GLUCOSE,1 HR SCREEN, PREGon 03-17-2023 Glucose [Mass/Vol] 100 mg/dL Normal <135 [facility] Comment on above: Result Comment: Diag nostic value with glucose loading dose of 50 g. Reference values from [employer]. Diabetes Care 2015;38(Suppl.1):S8-S16 Performed By: #### G LUS1 #### [address] [address] Glucose, 1 Hour Screen, Preg nancyon 03-17-2023 Glucose 1 Hr post 50 g glucose PO [Mass/Vol] 100 mg/dL <135 [facility] [place] [address] [place] Work Phone: Comment on above: Diagnostic value wit h glucose loading dose of 50 g. Reference values from [employer]. Diabetes Care 2015;38(Suppl.1):S8-S16 IRON + TIBC PREGNANCYon 03-01 IRON + TIBC NOT CALC. [facility] [place] [address] [employer] Work Phone: [phone] Comment on above: .Non- 25 - 45 %First Trimester 7 - 57 %Second Trimester 10 - 44 %Third Trimester 5 - 37 %Please note results will not flag based on reference ranges above.One or more analytes used in this calculation is outside of the analytical measurement range.Calculation cannot be performed. IRON + TIBC >512 Abnormal [facility] [place] [address] [employer] Work Phone: [phone] Comment on above: .Non- 240 - 445 ug/dLFirst Trimester 278 - 403 ug/dLSecond Trimester 325 - 514 ug/dLThird Trimester 359 - 609 ug/dLPlease note results will not flag based on reference ranges above.Interpret results with caution.One or more analytes used in this calculation is outside of the analytical measurement range. IRON + TIBC 62 ug/dL [facility] [address] Work Phone: [phone] Comment on above: .Non- Femal e 14-17y 28 - 175 ug/dLNon- Female >=18y 35 - 150 ug/dL.First Trimester 72 - 143 ug/dLSecond Trimester 44 - 178 ug/dLThird Trimester 30 - 193 ug/dLPlease note results will not flag based on reference ranges above. Laboratory - Chemistry and C hemistry - challengeon 03-17-2023 Cobalamin (Vitamin B12) [Mass/Vol] 433 pg/mL [employer] [facility] [address] Work Phone: [phone] Comment on above: Non- 211 - 911 pg/mLFirst Trimester >=118 pg/mLSecond Trimester >=130 pg/mLThird Trimester >= 99 pg/mLPlease note results will not flag based on reference ranges above. Laboratory - Hematology and Cell countson 03-17-2023 Erythrocyte distribution width (RBC) [Ratio] 13.5 % See Below [facility] [place] [address] Work Phone: [phone] Comment on above: Reference Range: 11. 5 - 14.5 Hematocrit (Bld) [Volume fraction] 32.0 % below low threshold See Below [employer] [facility] [employer] Work Phone: [phone] Comment on above: Reference Range: 36. 0 - 46.0 Hemoglobin (Bld) [Mass/Vol] 10.4 g/dL below low threshold See Below [facility] [place] [address] [employer] Work Phone: [phone] Comment on above: Reference Range: 12. 0 - 16.0 MCHC (RBC) [Mass/Vol] 32.5 g/dL See Below [facility] [address] [employer] Work Phone: [phone] Comment on above: Reference Range: 32. 0 - 36.0 MCV (RBC) [Entitic vol] 92 fL 80 - 100 [facility] [employer] Work Phone: [phone] Platelets (Bld) [#/Vol] 212 10*3/uL 150 - 450 [employer] [place] [employer] Work Phone: [phone] RBC (Bld) [#/Vol] 3.49 {x10E12/L} below low threshold See Below [employer] [employer] Work Phone: [phone] Comment on above: Reference Range: 4.0 0 - 5.20 WBC (Bld) [#/Vol] 11.4 10*3/uL above high threshold 4.4 - 11.3 [employer] [place] [employer] Work Phone: [phone] No Panel Informationon 03-17 15.3 ng/mL >5.0 [facility] [place] [employer] Work Phone: [phone] Comment on above: Low <3.4Borderline 3 .4-5.0Normal >5.0. Biotin interference may cause falsely elevated results. Patients taking a Biotin dose of up to 5 mg/day should refrain from taking Biotin for 24 hours before sample collection. Providers may contact their local laboratory for further information. 16 ug/L > 15 [facility] [place] [address] [employer] Work Phone: [phone] FERRITIN,VTB12,FOLAT E,IR ON+TIBC [facility] [employer] Work Phone: Blood Pressure Cuff Sizeon 0 01-30-2023 Fall risk assessment a) No falls within the last year [facility] [place] [address] Work Phone: Tobacco use status CPHS b) No [facility] [place] [address] Work Phone: Blood Pressure Cuff Size Adult [facility] [place] [address] Work Phone: Genetics - MFMon Genetics - MFM Diagnoses/Problems Assessed Family or maternal historic risk of congenital anomaly, antepartum, fetus 1 (655.23) (O35.8XX1) Provider Impressions Thank you for the referral of Toni Jacobson. She is a 32 year old, , female who was 24 0/7 weeks at the time of our appointment with an EDC of May 22, 2023. She was seen for genetic counseling with her partner, Link, due to family history concerns. PAST HISTORY: Previous ultrasound at outside institution noted concern at 20 4/7 weeks gestation for low lying placenta and microcephaly. Patient had not had any aneuploidy screening. Ultrasound was performed in our institution prior to genetic counseling; placenta did not appear low lying and although head circumference is small (4%ile) brain imaging appears normal and measurements currently do not meet criteria for microcephaly. Follow up growth ultrasound is recommended in 3-4 weeks. FAMILY HISTORY Medical and family histories were reviewed and the following additional concerns regarding this were apparent. -Couple had a son who was diagnosed with hemophagocytic lymphohistiocytosis at the age of 7 following arthritis like symptoms and ultimately 6 months later. He was initially seen at [facility] in [place], and later [facility]. Parents are not aware of any genetic testing having been performed. -Patient has one nephew with seizures, and another nephew who may have had surgery for a hole in the belly -Patient has a paternal half brother who is deaf -Patient's maternal aunt of cancer at age 38, her maternal grandmother and 2 maternal great aunts may have also had cancer; specific diagnoses and age of diagnoses are uncertain The remainder of the family history was negative for defects, intellectual disability, recurrent loss, or recognized inherited conditions. Consanguinity denied. SELF REPORTED RACE/ETHNICITY: Patient: Black Patient's partner: Black/Micronesian COUNSELING: The following information was discussed with your patient: 1.We discussed that current ultrasound findings are considered normal; head size is small but within normal limits with no brain abnormalities detected. Follow up ultrasounds are recommended to monitor overall growth, including head size. 2.Hemophagocytic Lymphohistiocytosis is a disorder in which there is an overactivation of the immune system and the cells it produces leading to fever, damage to the liver and spleen, and destruction of bone marrow cells leading to anemia, low platelets, easy bruising and bleeding. The brain may also be affected and result in abnormal muscle tone, impaired muscle coordination, paralysis, blindness, seizures, and coma. Signs and symptoms of familial hemophagocytic lymphohistiocytosis usually become apparent during infancy, although occasionally they appear later in life when the immune system launches an exaggerated response to an infection. This condition can be acquired, but can also be inherited in an autosomal recessive form associated with mutation in several genes (PRF1, UNC13D, STX11, and STXBP2). Risk of recurrence for any of the couple's other children or this may be up to 25%. The couple is not aware of any genetic testing having been performed on their affected child; we therefore discussed the option of carrier testing of the parents for mutations in the above mentioned genes. If both parents are identified as carriers, diagnosis, as well as other future reproductive options may be available, as well as genetic testing for their other children to determine if they may be affected. 3.As the patient has not had any carrier screening we also discussed the option of carrier screening for cystic fibrosis (CF), spinal muscular atrophy (SMA), and hemoglobinopathies/thala ssemias, as well as expanded carrier screening options. We discussed the pros and cons of expanded carrier screening including the higher likelihood of being identified as a carrier for at least one condition on a larger panel. Approximately 4-8% of couples are found to be at risk to have a child with a genetic disorder based on this screening. In rare cases, expanded carrier screening results may have health implications for the tested individual. 4.As the patient has not had aneuploidy screening, we also discussed the availability, benefits and limitations of non-invasive screening. We discussed the methodology for this testing, which includes using cell-free DNA obtained from a mother's blood to screen for the presence of common chromosomal abnormalities (trisomies 21, 13, 18, and sex chromosome aneuploidies). Depending on the laboratory used, there is a >99% sensitivity for Down syndrome, at least 97.4% sensitivity for trisomy 18, and at least 87.5% sensitivity for trisomy 13. Specificity for these trisomies is >99%. Although sensitivity and specificity rates are high, not a (more content not included)... Normal [employer] No Panel Informationon 01-30 Please click on the link to view the study images Normal [facility] [address] Work Phone: Normal [facility] [address] Work Phone: OB Follow up or repeat scano n 01-30-2023 OB Follow up or repeat scan Indication ======== Abnormality Suspected; Low Lying Placenta , Previous Fetus or Child with a Congenital Heart Defect History ====== General History Height 160 cm Height (ft) 5 ft Height (in) 3 in Previous Outcomes 4 Para 2 Children born living ?37w 2 Pregnancies delivered at term (T) 2 Living children (L) 2 Other: Vaginal Delivery- 3FTD- First HLHS child passed age 9 Maternal Assessment Height 160 cm Height (ft) 5 ft Height (in) 3 in Weight 74 kg Weight (lb) 164 lb BMI 29.05 kg/m? ========= Wilcox . Number of fetuses: 1 Dating ====== LMP on: 08/15/2022 GA by LMP 24 w + 0 d DUDLEY by LMP: 05/22/2023 GA by prior assessment 24 w + 0 d DUDLEY by prior assessment: 05/22/2023 Ultrasound examination on: 01/30/2023 GA by U/S based upon: AC, BPD, Femur, HC GA by U/S 23 w + 3 d DUDLEY by U/S: 05/26/2023 Assigned: based on the LMP, selected on 01/30/2023 Assigned GA 24 w + 0 d Assigned DUDLEY: 05/22/2023 Growth Overview Exam date GA BPD (mm) HC (mm) AC (mm) FL (mm) HL (mm) EFW (g) 01/30/2023 24w 0d 53.3 3% 206.6 4% 200.2 63% 43.3 43% 40.6 48% 668 49% Impression ========= The patient did not have aneuploidy screening. She had a sonogram at [facility] showing low lying placenta with small head size and possible microcephaly. The parents also gave a history of HLH as the cause of of their previous child at 9 years of age. 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 This can be an autosomal recessive disorder. They were told this was genetic by [facility] however they have not been screened for their carrier status. A targeted anatomic survey was indicated due to the above. - The placenta is normal in location by transvaginal approach. Cervical length is normal without funneling - biometry is consistent with the stated gestational age. The BPD and head circumference are at the third and fourth percentiles respectively. This is not in the range for microcephaly would be suspected. The Fetus is also in breech lie which often causes under estimation of cranial biometry. -Detailed anatomic evaluation of the brain/ventricles, face, heart/outflow tracts and chest anatomy, abdominal organ specific anatomy, number/length/architectu re of limbs and detailed evaluation of the umbilical cord and placenta and other anatomy as clinically indicated was performed. -No malformations were identified on this comprehensive survey within limitations of sonographic evaluation at this gestational age. Genetic counseling and consultation performed to follow. The patient elected HLH screening only. The FOB will consider screening if the patient is a carrier. Thank you for allowing us to participate in the care of your patient General Evaluation Cardiac activity present. FHR 147 bpm. movements: visualized. Presentation: breech Placenta: Placental site: posterior, fundal, No Previa Seen Umbilical cord: Cord vessels: 3 vessel cord. Insertion site: placental insertion: normal Amniotic fluid: Amount of AF: normal amount. MVP 6.2 cm. LISA 18.1 cm. Q1 6.2 cm, Q2 1.7 cm, Q3 5.8 cm, Q4 4.3 cm Biometry Standard BPD 53.3 mm 22w 1d 3% Hadlock OFD 75.5 mm 29% INTERGROWTH-21st HC 206.6 mm 22w 5d 4% Hadlock Cerebellum tr 26.1 mm 23w 5d 54% Tenorio AC 200.2 mm 24w 5d 63% Hadlock Femur 43.3 mm 24w 1d 43% Hadlock Humerus 40.6 mm 48% Chitty HC / AC 1.03 EFW 668 g 24w 0d 49% Hadlock EFW (lb) 1 lb EFW (oz) 8 oz EFW by: Hadlock ([id number]) [employer] Software Designer 3.8 mm CM 6.5 mm 67% Nicolaides Head / Face / Neck Cephalic index 0.71 <1% Nicolaides Extremities / Bony Struc FL / BPD 0.81 FL / HC 0.21 FL / AC 0.22 Other Structures FHR 147 bpm Anatomy Cranium: Normal Lateral ventricles: Normal Choroid plexus: Normal Midline falx: Normal Cavum septi pellucidi: Normal Cerebellum: Normal Cisterna magna: Normal Head / Neck Head size: Normal Head shape: Normal Rt lateral ventricle: Normal Lt lateral ventricle: Normal Rt choroid plexus: Normal Lt choroid plexus: Normal Thalami: Normal Cerebellar lobes: Normal Vermis: Normal Neck: Normal Neck: No neck masses seen Lips: Normal Profile: Normal Nose: Normal Face Maxilla: Normal Mandible: Normal Orbits: Normal 4-chamber view: Normal RVOT view: Normal LVOT view: Normal 3-vessel view: Normal 7-itgkzl-ofguufw view: Normal Heart / Thorax Situs: situs solitus (normal) Aortic arch view: Normal Bicaval view: Normal Cardiac position: levocardia (normal) Cardiac axis: Normal Cardiac size: normal (approx. 1/3 of thoracic area) Cardiac proportions: proportioned (normal) Cardiac rhythm: regular (normal (more content not included)... Normal [facility] CAR HOPPER - Office Visiton CAR HOPPER - Office Visit Provider Tati figueroa The patient is a 32-year-old at 24 weeks. She had normal outside labs. Her has been coplicated by chronic ALLEN. She was sent for an outside scan showing low-lying placenta and possible microcephaly results of our scan today are listed below. Head circumference and BPD are at the fourth and 3rd percentile. This does not meet criteria for microcephaly. The intracranial anatomy appears normal with normal development for the gestational age. The parents were counseled the following regarding the scan today: - Normal placental location -The definition of microcephaly is less than 2 standard deviations of the head circumference. The biophysical profile does not enter into this consideration. The parents were told the head circumference is currently just below normal limits. As there are no other findings to suggest poor development of cerebral cortex ( normal development for the GA), this is likely constitutional. -The parents were told that the trends and growth are more important than a single measurement. Many children have small heads growing at a normal rate which is not worrisome. Therefore another ultrasound is needed to determine growth velocity of the head. - The parents understand this is likely to be constitutional but cannot be determined with certainty Hx of previous child with HLH (Hemophagocytic lymphohistiocytosis) - Parents were informed of the implications of the above - This may be an AR form as the parents were told this is genetic - Carrier screening available for 4 common genes - Mother agrees with carrier screening and possible need to test her partner - They were informed that onset of the disease can occur at any time. PLAN: - Delivery at home institution unless findings change. - Rpt scan in 4 weeks - Carrier testing pending for HLH Chief Complaint the patient is seen at the request of Cliff Aguirre for consultation regarding c/f microcephaly; EDC 05/22/2023 FC MA Active Problems Problems 17 weeks gestation of (V22.2) (Z3A.17) 19 weeks gestation of (V22.2) (Z3A.19) Atypical squamous cells of undetermined significance on cytologic smear of vagina (ASC-US) (795.11) (R87.620) microcephaly (655.00) (O35.07X0) Influenza vaccination declined by patient (V64.06) (Z28.21) Need for HPV vaccine (V04.89) (Z23) Positive urine test (V72.42) (Z32.01) Routine screening for STI (sexually transmitted infection) (V74.5) (Z11.3) Screening for cervical cancer (V76.2) (Z12.4) Screening for STD (sexually transmitted disease) (V74.5) (Z11.3) Vaginal discharge (623.5) (N89.8) Past Medical History Problems Normal delivery (650) (O80) Resolved Date: 23 Dec 2022 Added by Problem List Migration; 2013-06-20; Moved to [facility] Oct 29 2013 9:11PM History of Normal vaginal delivery (650) (O80) 03/06/2012; MALE; 8LBS 7OZ 05/09/2020; MALE; 6LBS 2OZ 05/14/2021; FEMALE; 6LB 9OZ History of UTI (lower urinary tract infection) (599.0) (N39.0) Surgical History Problems No history of surgery Family History Grandmother Family history of Colon cancer Social History Problems Never smoker No drug use Occasional alcohol use Sexually active Allergies Medication No Known Drug Allergies Recorded By: Jasmin Earl; 02/01/2014 10:27:14 AM Current Meds Medication NameInstruction Magnesium Oxide 400 MG Oral TabletTake 1 tablet twice daily Plus Vitamin/Mineral 27-1 MG Oral TabletTAKE 1 TABLET DAILY. Terconazole 0.8 % Vaginal CreamINSERT 1 APPLICATORFUL INTRAVAGINALLY AT BEDTIME NIGHTLY. Vitals Vital Signs Recorded: 30Jan2023 09:10AM [id number] [id number] Blood Pressure Cuff SizeAdult Hcjaha402 lb BMI Ltzkjjmpkc98.15 kg/m2 BSA Calculated1.8 Tobacco Useb) No Falls Screening (Age 18+)a) No falls within the last year Pain Scale0 Results/Data The patient did not have aneuploidy screening. She had a sonogram at [facility] showing low lying placenta with small head size and possible microcephaly. The parents also gave a history of HLH as the cause of of their previous child at 9 years of age. 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 This can be an autosomal recessive disorder. They were told this was genetic however they have not been screened for their carrier status. A targeted anatomic survey was indicated due to the above. - The placenta is normal in location by transvaginal approach. Cervical length is normal without funneling - biometry is consistent with the stated gestational age. The BPD and head circumference are at the third and fourth percentiles respectively. This is not in the range for microcephaly would be suspected. The Fetus is also in breech lie which often causes under estimation of cranial biometry. -Detailed anatomic evaluation of the brain/ventricles, face, heart/outflow tracts and chest anatomy, abdominal organ specific anatomy (more content not included)... Normal [employer] No Panel Informationon 01-06 Normal [facility] [address] Work Phone: HEPATITIS B SURFACE AGon HEP.B SURFACE AG Non-Reactive Normal NONREACTIVE [facility] [place] Comment on above: Result Comment: Biot in interference may cause falsely decreased results. Patients taking a Biotin dose of up to 5 mg/day should refrain from taking Biotin for 24 hours before sample collection. Providers may contact their local laboratory for further information. Performed By: #### A NEMI #### [id number] [place] [address] HIV 1/2 ANTIGEN/ANTIBODY SCR EEN WITH REFLEX TO CONFIRMATIONon 12-31-2022 HIV 1/2 AG/AB SCREEN Non-Reactive Normal NONREACTIVE [facility] Comment on above: Result Comment: HIV Ag/Ab screen is performed using the Siemens Atellica HIV Ag/Ab Combo assay which detects the presence of HIV p24 antigen as well as antibodies to HIV-1 (Group M and O) and HIV-2. . No laboratory evidence of HIV infection. If acute HIV infection is suspected, consider testing for HIV RNA by PCR (viral load). Performed By: #### H IV #### [facility] [address] [place] [address] RUBELLA IGG ABon 12-31-2022 RUBELLA IGG AB Negative Normal [facility] Comment on above: Result Comment: INTE RPRETATIVE COMMENT NEGATIVE: No IgG antibodies specific to Rubella detected. It is likely that the patient has not had a previous exposure to Rubella through infection or vaccination. Alternatively, the patient may have been exposed to Rubella but a failure to respond may indicate immunodeficiency. EQUIVOCAL:Equivocal results; obtain additional sample for retesting. POSITIVE: IgG antibody to Rubella detected. This may indicate that the patient was exposed to Rubella through infection or vaccination. The interpretation of serological tests should take into account the immunological status of the patient. Test results for patients, including immunocompromised patients, neonates, and pediatric patients, reflect their capacity to respond immunologically to the virus as well as their exposure to the pathogen. Patients treated with IVIG may demonstrate altered results in serological assays. Performed By: #### R UBIG #### [facility] [address] [place] [address] SYPHILIS SCREENING WITH REFL EXon 12-31-2022 SYPHILIS TOTAL AB Non-Reactive Normal NONREACTIVE [facility] Comment on above: Result Comment: No s ignificant level of Treponema pallidum antibody detected. Repeat testing in 2 to 4 weeks may be considered if early infection or incubating syphilis infection is suspected. Performed By: #### S YPHR #### [facility] [address] [place] [id number] TYPE + SCREENon 12-31-2022 ABO TYPE O Normal [facility] Comment on above: Performed By: #### T +S #### [facility] [address] [place] [id number] RH TYPE Positive Normal [facility] Comment on above: Performed By: #### T +S #### [facility] [address] [place] [id number] CBC AND DIFFERENTIALon 12-30 % AUTOMATED IMMATURE GRAN 0.2 % Normal 0.0 - 0.9 [facility] Comment on above: Result Comment: Linda ture Granulocyte Count (IG) includes promyelocytes, myelocytes and metamyelocytes but does not include bands. Percent differential counts (%) should be interpreted in the context of the absolute cell counts (cells/L). Performed By: #### A NEMI #### [address] [address] Basophils (Bld) [#/Vol] 0.04 10*3/uL Normal 0.00 - 0.10 [facility] Comment on above: Performed By: #### A NEMI #### [address] [address] Basophils/100 WBC (Bld) 0.5 % Normal 0.0 - 2.0 [facility] Comment on above: Performed By: #### A NEMI #### [address] [address] Eosinophils (Bld) [#/Vol] 0.07 10*3/uL Normal 0.00 - 0.70 [facility] Comment on above: Performed By: #### A NEMI #### [address] [address] Eosinophils/100 WBC (Bld) 0.8 % Normal 0.0 - 6.0 [facility] Comment on above: Performed By: #### A NEMI #### [address] [address] Erythrocyte distribution width (RBC) [Ratio] 13.0 % Normal 11.5 - 14.5 [facility] Comment on above: Performed By: #### A NEMI #### [address] [address] Hematocrit (Bld) [Volume fraction] 34.4 % Low 36.0 - 46.0 [facility] Comment on above: Performed By: #### A NEMI #### [address] [address] Hemoglobin (Bld) [Mass/Vol] 11.2 g/dL Low 12.0 - 16.0 [facility] Comment on above: Performed By: #### A NEMI #### [address] [address] Lymphocytes (Bld) [#/Vol] 2.23 10*3/uL Normal 1.20 - 4.80 [facility] Comment on above: Performed By: #### A NEMI #### [address] [address] Lymphocytes/100 WBC (Bld) 26.5 % Normal 13.0 - 44.0 [facility] Comment on above: Performed By: #### A NEMI #### [address] [address] MCHC (RBC) [Mass/Vol] 32.6 g/dL Normal 32.0 - 36.0 [facility] Comment on above: Performed By: #### A NEMI #### [address] [address] MCV (RBC) [Entitic vol] 92 fL Normal 80 - 100 [facility] Comment on above: Performed By: #### A NEMI #### [address] [address] Monocytes (Bld) [#/Vol] 0.69 10*3/uL Normal 0.10 - 1.00 [facility] Comment on above: Performed By: #### A NEMI #### [address] [address] Monocytes/100 WBC (Bld) 8.2 % Normal 2.0 - 10.0 [facility] Comment on above: Performed By: #### A NEMI #### [address] [address] Neutrophils (Bld) [#/Vol] 5.37 10*3/uL Normal 1.20 - 7.70 [facility] Comment on above: Result Comment: Perc ent differential counts (%) should be interpreted in the context of the absolute cell counts (cells/L). Performed By: #### A NEMI #### [address] [address] Neutrophils/100 WBC (Bld) 63.8 % Normal 40.0 - 80.0 [facility] Comment on above: Performed By: #### A NEMI #### [address] [address] Platelets (Bld) [#/Vol] 230 10*3/uL Normal 150 - 450 [facility] Comment on above: Performed By: #### A NEMI #### [address] [address] RBC 3.75 x10E12/L Low 4.00 - 5.20 [facility] Comment on above: Performed By: #### A NEMI #### [address] [address] WBC (Bld) [#/Vol] 8.4 10*3/uL Normal 4.4 - 11.3 [facility] Comment on above: Performed By: #### A NEMI #### [facility] [address] [place] [address] Complete Blood Count + Diffeb castro 12-30-2022 Basophils/100 WBC (Bld) 0.5 % 0.0 - 2.0 [facility] [address] [employer] Work Phone: [phone] Erythrocyte distribution width (RBC) [Ratio] 13.0 % See Below [facility] [address] Work Phone: [phone] Comment on above: Reference Range: 11. 5 - 14.5 Hematocrit (Bld) [Volume fraction] 34.4 % below low threshold See Below [facility] [address] Work Phone: [phone] Comment on above: Reference Range: 36. 0 - 46.0 Hemoglobin (Bld) [Mass/Vol] 11.2 g/dL below low threshold See Below [facility] [address] Work Phone: [phone] Comment on above: Reference Range: 12. 0 - 16.0 Lymphocytes/100 WBC (Bld) 26.5 % See Below [facility] [address] Work Phone: [phone] Comment on above: Reference Range: 13. 0 - 44.0 MCHC (RBC) [Mass/Vol] 32.6 g/dL See Below [facility] [employer] Work Phone: [phone] Comment on above: Reference Range: 32. 0 - 36.0 MCV (RBC) [Entitic vol] 92 fL 80 - 100 [facility] [address] [place] Work Phone: [phone] Monocytes/100 WBC (Bld) 8.2 % 2.0 - 10.0 [facility] [address] [place] Work Phone: [phone] Neutrophils/100 WBC (Bld) 63.8 % See Below [facility] [address] Work Phone: [phone] Comment on above: Reference Range: 40. 0 - 80.0 Platelets (Bld) [#/Vol] 230 10*3/uL 150 - 450 [facility] [address] [place] Work Phone: [phone] RBC (Bld) [#/Vol] 3.75 {x10E12/L} below low threshold See Below [facility] [address] Work Phone: [phone] Comment on above: Reference Range: 4.0 0 - 5.20 WBC (Bld) [#/Vol] 8.4 10*3/uL 4.4 - 11.3 [facility] [address] Work Phone: [phone] Complete Blood Count + Differential 0.04 {x10E9/L} See Below [facility] [address] Work Phone: [phone] Comment on above: Reference Range: 0.0 0 - 0.10 Complete Blood Count + Differential 0.07 {x10E9/L} See Below [facility] [address] Work Phone: [phone] Comment on above: Reference Range: 0.0 0 - 0.70 Complete Blood Count + Differential 0.69 {x10E9/L} See Below [facility] [address] Work Phone: [phone] Comment on above: Reference Range: 0.1 0 - 1.00 Complete Blood Count + Differential 2.23 {x10E9/L} See Below [facility] [address] Work Phone: [phone] Comment on above: Reference Range: 1.2 0 - 4.80 Complete Blood Count + Differential 5.37 {x10E9/L} See Below [facility] [address] Work Phone: [phone] Comment on above: Reference Range: 1.2 0 - 7.70 Percent differential counts (%) should be interpreted in the context of the absolute cell counts (cells/L). Complete Blood Count + Differential 0.8 % 0.0 - 6.0 [facility] [address] Work Phone: [phone] Complete Blood Count + Differential 0.2 % 0.0 - 0.9 [facility] [employer] Work Phone: [phone] Comment on above: Immature Granulocyte Count (IG) includes promyelocytes, myelocytes and metamyelocytes but does not include bands. Percent differential counts (%) should be interpreted in the context of the absolute cell counts (cells/L). DRUG SCREEN,URINE WITH REFLE X TO CONFIRMATIONon 12-30-2022 AMPHETAMINE SCREEN,U Negative Normal NEGATIVE [facility] Comment on above: Result Comment: CUTO FF LEVEL: 500 NG/ML Cross-reactivity has been reported with high concentrations of the following drugs: buproprion, chloroquine, chlorpromazine, ephedrine, mephentermine, fenfluramine, phentermine, phenylpropanolamine, pseudoephedrine, and propranolol. Performed By: #### I RNPR #### [facility] [address] [place] [address] BARBITURATES SCREEN,U Negative Normal NEGATIVE [facility] Comment on above: Result Comment: CUTO FF LEVEL: 200 NG/ML Performed By: #### I RNPR #### [facility] [address] [place] [address] BENZODIAZEPINES SCREEN,U Negative Normal NEGATIVE [facility] Comment on above: Result Comment: CUTO FF LEVEL: 200 NG/ML Performed By: #### I RNPR #### [facility] [address] [place] [address] CANNABINOIDS SCREEN,U Negative Normal NEGATIVE [facility] Comment on above: Result Comment: CUTO FF LEVEL: 50 NG/ML Performed By: #### I RNPR #### [facility] [address] [place] [address] COCAINE METABOLITE SCREEN,U Negative Normal NEGATIVE [facility] Comment on above: Result Comment: CUTO FF LEVEL: 150 NG/ML Performed By: #### I RNPR #### [facility] [address] [place] [address] DRUG SCREEN COMMENT SEE BELOW Normal [facility], [place] Comment on above: Result Comment: Drug screen results are presumptive and should not be used to assess compliance with prescribed medication. Definitive confirmatory drug testing has been added to this sample for any positive screen result and will be reported separately. . Toxicology screening results are reported qualitatively. The concentration must be greater than or equal to the cutoff to be reported as positive. The concentration at which the screening test can detect an individual drug or metabolite varies. The absence of expected drug(s) and/or drug metabolite(s) may indicate non-compliance, inappropriate timing of specimen collection relative to drug administration, poor drug absorption, diluted/adulterated urine, or limitations of testing. For medical purposes only; not valid for forensic use. . Interpretive questions should be directed to the laboratory medical directors. Performed By: #### I RNPR #### [facility] [address] [place] [address] FENTANYL SCREEN,URINE Negative Normal NEGATIVE [facility] Comment on above: Result Comment: CUTO FF LEVEL: 5 NG/ML Performed By: #### I RNPR #### [facility] [id number] [place] [address] METHADONE SCREEN,U Negative Normal NEGATIVE [facility] Comment on above: Result Comment: CUTO FF LEVEL: 150 NG/ML The metabolite D-lmded-qwdvaplaambvkp (LAAM) is not detected by this method in concentrations that would be found in the urine of patients on LAAM therapy. Performed By: #### I RNPR #### [facility] [address] [place] [address] OPIATES SCREEN,U Negative Normal NEGATIVE [facility] Comment on above: Result Comment: CUTO FF LEVEL: 300 NG/ML The opiate screen does not detect fentanyl, meperidine, or tramadol. Oxycodone is not consistently detected (refer to Oxycodone Screen, Urine result). Performed By: #### I RNPR #### [facility] [address] [place] [address] OXYCODONE SCREEN,U Negative Normal NEGATIVE [facility] Comment on above: Result Comment: CUTO FF LEVEL: 100 NG/ML This test will accurately detect both oxycodone and oxymorphone. Performed By: #### I RNPR #### [facility] [address] [place] [address] PCP SCREEN,U Negative Normal NEGATIVE [facility] Comment on above: Result Comment: CUTO FF LEVEL: 25 NG/ML Cross-reactivity has been reported with dextromethorphan. Performed By: #### I RNPR #### [facility] [address] [place] [address] HIV 1/2 ANTIGEN/ANTIBODY SCR EEN WITH REFLEX TO CONFIRMATIONon 12-30-2022 Lab Specimen Source Normal [facility] [place] Comment on above: Performed By: #### H IV #### [facility] [address] [place] [address] Performed By: #### A NEMI #### [facility] [address] [place] [address] HIV 1+2 Ab Qn (S) Non-Reactive See Below [facility] [address] Work Phone: [phone] Comment on above: SOURCE: Reference Ra nge: NONREACTIVE HIV Ag/Ab screen is performed using the Siemens RadioFrame HIV Ag/Ab Combo assay which detects the presence of HIV p24 antigen as well as antibodies to HIV-1 (Group M and O) and HIV-2..No laboratory evidence of HIV infection. If acute HIV infection is suspected, consider testing for HIV RNA by PCR (viral load). Hepatitis B Surface Antigeno n 12-30-2022 Hepatitis B Surface Antigen Non-Reactive See Below [facility] [address] Work Phone: [phone] Comment on above: SOURCE: Reference Ra nge: NONREACTIVE Biotin interference may cause falsely decreased results. Patients taking a Biotin dose of up to 5 mg/day should refrain from taking Biotin for 24 hours before sample collection. Providers may contact their local laboratory for further information. LMPon 12-30-2022 Last menstrual period start date [id number] [facility] [address] Work Phone: [phone] Laboratory - Blood bankon ABO group Nom (Bld) O [facility] [address] Work Phone: [phone] Blood group antibody screen Ql Negative [facility] [address] Work Phone: [phone] Rh immune globulin screen (Bld) [Interp] Positive [facility] [address] Work Phone: [phone] Laboratory - Cytologyon 12-03 Cytology report Cyto stain.thin prep Doc (Cvx/Vag) [facility] [address] Work Phone: Laboratory - Drug toxicology on 12-30-2022 Amphetamines Screen Ql (U) Negative NEGATIVE [facility] [address] Work Phone: Comment on above: CUTOFF LEVEL: 500 NG /ML Cross-reactivity has been reported with high concentrations of the following drugs: buproprion, chloroquine, chlorpromazine, ephedrine, mephentermine, fenfluramine, phentermine, phenylpropanolamine, pseudoephedrine, and propranolol. Barbiturates Screen Ql (U) Negative NEGATIVE [facility] [address] Work Phone: Comment on above: CUTOFF LEVEL: 200 NG /ML Benzodiazepines Ql (U) Negative NEGATIVE [facility] [address] Work Phone: Comment on above: CUTOFF LEVEL: 200 NG /ML Benzoylecgonine Screen Ql (U) Negative NEGATIVE [facility] [place] [address] [address] Work Phone: [phone] Comment on above: CUTOFF LEVEL: 150 NG /ML Cannabinoids Screen Ql (U) Negative NEGATIVE [facility] [employer] Work Phone: Comment on above: CUTOFF LEVEL: 50 NG/ ML Methadone Screen Ql (U) Negative NEGATIVE [facility] [place] [address] [address] Work Phone: Comment on above: CUTOFF LEVEL: 150 NG /ML The metabolite Y-gnchy-rkcrziwratqxwi (LAAM) is not detected by this method in concentrations that would be found in the urine of patients on LAAM therapy. Opiates Screen Ql (U) Negative NEGATIVE [facility] [address] Work Phone: Comment on above: CUTOFF LEVEL: 300 NG /ML The opiate screen does not detect fentanyl, meperidine, or tramadol. Oxycodone is not consistently detected (refer to Oxycodone Screen, Urine result). oxyCODONE+oxyMORphone Screen Ql (U) Negative NEGATIVE [facility] [address] Work Phone: Comment on above: CUTOFF LEVEL: 100 NG /ML This test will accurately detect both oxycodone and oxymorphone. Phencyclidine Ql (U) Negative NEGATIVE [facility] [place] [address] Work Phone: Comment on above: CUTOFF LEVEL: 25 NG/ ML Cross-reactivity has been reported with dextromethorphan. No Panel Informationon 12-30 Negative NEGATIVE [facility] [address] Work Phone: Comment on above: CUTOFF LEVEL: 5 NG/M L SEE BELOW [facility] [address] Work Phone: Comment on above: Drug screen results are presumptive and should not be used to assess compliance with prescribed medication. Definitive confirmatory drug testing has been added to this sample for any positive screen result and will be reported separately. .Toxicology screening results are reported qualitatively. The concentration must be greater than or equal to the cutoff to be reported as positive. The concentration at which the screening test can detect an individual drug or metabolite varies. The absence of expected drug(s) and/or drug metabolite(s) may indicate non-compliance, inappropriate timing of specimen collection relative to drug administration, poor drug absorption, diluted/adulterated urine, or limitations of testing. For medical purposes only; not valid for forensic use. .Interpretive questions should be directed to the laboratory medical directors. Rubella IgG Antibodyon 12-30 Rubella virus IgG IA Ql Negative [facility] [address] Work Phone: Comment on above: INTERPRETATIVE COMME NT NEGATIVE: No IgG antibodies specific to Rubella detected. It is likely that the patient has not had a previous exposure to Rubella through infection or vaccination. Alternatively, the patient may have been exposed to Rubella but a failure to respond may indicate immunodeficiency. EQUIVOCAL:Equivocal results; obtain additional sample for retesting. POSITIVE: IgG antibody to Rubella detected. This may indicate that the patient was exposed to Rubella through infection or vaccination.The interpretation of serological tests should take into accountthe immunological status of the patient. Test results forpatients, including immunocompromised patients, neonates, andpediatric patients, reflect their capacity to respondimmunologically to the virus as well as their exposure to thepathogen. Patients treated with IVIG may demonstrate alteredresults in serological assays. SYPHILIS SCREENING WITH REFL EXon 12-30-2022 T. pallidum IgG+IgM IA Ql (S) Non-Reactive See Below [facility] [address] Work Phone: [phone] Comment on above: Reference Range: NON REACTIVENo significant level of Treponema pallidum antibody detected. Repeat testing in 2 to 4 weeks may be considered if early infection or incubating syphilis infection is suspected. GC + CHLAMYDIA BY AMPLIFIED DETECTIONon 12-24-2022 CHLAMYDIA TRACH.,AMPLIFIED Negative Normal Negative [facility] Comment on above: Result Comment: The APTIMA Combo 2 assay is FDA-approved for Chlamydia trachomatis and Neisseria gonorrhoeae testing on female endocervical and vaginal swabs, ThinPrep liquid pap samples, male urine samples and urethral swabs. Performance characteristics for Chlamydia trachomatis and Neisseria gonorrhoeae testing on specific ape-AOK-bpgipcuq sample types (female urine samples) have been validated by [facility]. This laboratory is certified by CLIA to perform high complexity testing. Samples from all other sites are not validated for this method. Performed By: #### G [facility] #### [facility] [address] [place] [address] N.GONORRHEA,AMPLIFIED Negative Normal Negative [facility] Comment on above: Result Comment: The APTIMA Combo 2 assay is FDA-approved for Chlamydia trachomatis and Neisseria gonorrhoeae testing on female endocervical and vaginal swabs, ThinPrep liquid pap samples, male urine samples and urethral swabs. Performance characteristics for Chlamydia trachomatis and Neisseria gonorrhoeae testing on specific yrq-HEN-iflerhlm sample types (female urine samples) have been validated by [facility]. This laboratory is certified by CLIA to perform high complexity testing. Samples from all other sites are not validated for this method. Performed By: #### [facility] #### [facility] [address] [place] [address] Cult, Genitalon 12-23-2022 Bacteria identified Aer cx Nom (Genital specimen) [facility] [address] Work Phone: [phone] Cult, Urineon 12-23-2022 Bacteria identified Cx Nom (U) [facility] [address] Work Phone: [phone] GC + CHLAMYDIA BY AMPLIFIED DETECTIONon 12-23-2022 Lab Specimen Source Urine Normal [facility] Comment on above: Performed By: #### G [facility] #### [facility] [address] [place] [address] GC + Chlamydia By Amplified Detectionon 12-23-2022 C. trachomatis rRNA JEFFRY+probe Ql (Unsp spec) Negative Negative [facility] [address] Work Phone: Comment on above: The APTIMA Combo 2 a ssay is FDA-approved for Chlamydia trachomatis and Neisseria gonorrhoeae testing on female endocervical and vaginal swabs, ThinPrep liquid pap samples, male urine samples and urethral swabs. Performance characteristics for Chlamydia trachomatis and Neisseria gonorrhoeae testing on specific rkg-AIX-vvfbuccr sample types (female urine samples) have been validated by [facility]. This laboratory is certified by CLIA to perform high complexity testing. Samples from all other sites are not validated for this method. N. gonorrhoeae rRNA JEFFRY+probe Ql (Unsp spec) Negative Negative [facility] [address] Work Phone: Comment on above: SOURCE: Urine The AP MARISELA Combo 2 assay is FDA-approved for Chlamydia trachomatis and Neisseria gonorrhoeae testing on female endocervical and vaginal swabs, ThinPrep liquid pap samples, male urine samples and urethral swabs. Performance characteristics for Chlamydia trachomatis and Neisseria gonorrhoeae testing on specific vhe-HVE-ucpdotza sample types (female urine samples) have been validated by [facility]. This laboratory is certified by CLIA to perform high complexity testing. Samples from all other sites are not validated for this method. GENITAL CULTURE, BACT.on GENITAL CULTURE, BACT. PATIENT: TONI JACOBSON LOCATION: [id number] BILL#: [id number] : 89 AGE: SEX: F ORDERED BY: CLIFF AGUIRRE SOURCE: GENITAL COLLECTED: 12/23/22 09:32 ANTIBIOTICS AT YANIV.: RECEIVED : 12/23/22 17:45 SITE: Vaginal R E S U L T S GENITAL CULTURE, BACT. FINAL 12/27/22 08:29 NO PATHOGENS Culture examined for Group A Streptococcus, Group B Streptococcus, Neisseria gonorrhoeae and Yeast ONLY. NO Neisseria gonorrhoeae ISOLATED. Normal [facility] Comment on above: Performed By: #### A NEMI #### [facility] [address] [place] [address] IO HCG, Urine Test on 12-23-2022 HCG ( test) Ql (U) Positive Abnormal [facility] [address] Work Phone: [phone] LMPon 12-23-2022 Last menstrual period start date 21Aug2022 [facility] [address] Work Phone: [phone] CAR HOPPER - Office Visiton 12-02 CAR HOPPER - Office Visit Diagnoses/Problems Assessed Positive urine test (V72.42) (Z32.01) Vaginal discharge (623.5) (N89.8) Orders Start: Plus Vitamin/Mineral 27-1 MG Oral Tablet; TAKE 1 TABLET DAILY Complete Blood Count + Differential; Status:Active; Requested for:23Dec2022; Hepatitis B Surface Antigen; Status:Active; Requested for:23Dec2022; HIV 1/2 ANTIGEN/ANTIBODY SCREEN WITH REFLEX TO CONFIRMATION; Status:Active; Requested for:23Dec2022; IO HCG, Urine Test; Status:Resulted - Requires Verification,Retrospecti ve Authorization; Done: 23Dec2022 09:05AM Rubella IgG Antibody; Status:Active; Requested for:23Dec2022; SYPHILIS SCREENING WITH REFLEX; Status:Active; Requested for:23Dec2022; Type and Screen; Status:Active; Requested for:23Dec2022; GC + Chlamydia By Amplified Detection; Status:In Progress - Specimen/Data Collected,Retrospective Authorization; Done: 23Dec2022 Start: Terconazole 0.8 % Vaginal Cream; INSERT 1 APPLICATORFUL INTRAVAGINALLY AT BEDTIME NIGHTLY Cult, Genital; Status:In Progress - Specimen/Data Collected,Retrospective Authorization; Done: 23Dec2022 Site : Vaginal Cult, Urine; Status:In Progress - Specimen/Data Collected,Retrospective Authorization; Done: 23Dec2022 Provider Impressions Patient is a 32-year-old 4 para 2 who presents for confirmation of . Viable was confirmed at 17 weeks and 5 days will start care in 1 week. We will get labs today Vaginal discharge consistent with a yeast infection we will treat her with Terazol. Chief Complaint PT HERE TODAY AMENORRHEA. PT DENIES ANY BREAST TENDERNESS, NAUSEA, VOMITING, BLEEDING, AND CRAMPING. PT IS TAKING HER VITAMINS SOMETIMES. PT HAS HAD 3 VAGINAL DELIVERIES. LMP 08/21/22 History of Present IllnessJason is a 32-year-old 4 para 2 who comes in for confirmation of . Patient's last menstrual period was August 21, 2023. Patient reports she has been feeling fine during the . She reports this was not a planned . Patient denies nausea vomiting GI upset reports she has been feeling movement for couple days no cramping or bleeding but reports vaginal itching and discharge. She reports she is prone to yeast infections. Patient has had 3 previous spontaneous vaginal deliveries with no complications. However 3 years ago her oldest child from [facility]. Active Problems Problems Atypical squamous cells of undetermined significance on cytologic smear of vagina (ASC-US) (795.11) (R87.620) Influenza vaccination declined by patient (V64.06) (Z28.21) Need for HPV vaccine (V04.89) (Z23) Routine screening for STI (sexually transmitted infection) (V74.5) (Z11.3) Past Medical History Problems Normal delivery (650) (O80) Resolved Date: 23 Dec 2022 Added by Problem List Migration; 2013-06-20; Moved to [facility] Oct 29 2013 9:11PM History of Normal vaginal delivery (650) (O80) 03/06/2012; MALE; 8LBS 7OZ 05/09/2020; MALE; 6LBS 2OZ 05/14/2021; FEMALE; 6LB 9OZ History of UTI (lower urinary tract infection) (599.0) (N39.0) Surgical History Problems No history of surgery Family History Grandmother Family history of Colon cancer Social History Problems Never smoker No drug use Occasional alcohol use Sexually active Allergies Medication No Known Drug Allergies Recorded By: Jasmin Earl; 02/01/2014 10:27:14 AM Current Meds Medication NameInstruction No Reported Medications Vitals Vital Signs Recorded: 23Dec2022 09:02AM [id number] Ueaclwisz40 Height5 ft 4 in Onbpfy275 lb 5.94 oz BMI Merzedauvb19.84 kg/m2 BSA Calculated1.76 [id number] Physical Exam Constitutional: Healthy-appearing in no distress. Head and Face: No obvious lesions. Neck: Good range of motion. Abdomen: Soft nontender. External genitalia revealed no lesions the vagina was well estrogenized there was a yellow particulate discharge present Musculoskeletal: Good mobility. Psychiatric: Appropriately oriented with normal mood and affect. Transabdominal ultrasound revealed a viable of 19 weeks and 0 days which was consistent with her last menstrual period giving her a final EDC of May 28, 2023 heart tones were documented at 143 and good activity was seen on ultrasound [place] positive yeast negative trichomoniasis negative clue cells Results/Data IO HCG, Urine [id number] 09:05AMCliff Aguirre MEDLINE HCG LOT [id number] EXP 2024-02-29 Test NameResultFlagReference IO Urine hCGPositiveA Signatures Electronically signed by : Cliff Aguirre DO; Dec 23 2022 9:46AM EST (Author) Normal [employer] URINE CULTURE,BACTERIALon URINE CULTURE,BACTERIAL PATIENT: TONI JACOBSON LOCATION: [facility] BILL#: [id number] : 89 AGE: SEX: F ORDERED BY: CLIFF AGUIRRE SOURCE: URINE COLLECTED: 12/23/22 09:34 ANTIBIOTICS AT YANIV.: RECEIVED : 12/23/22 17:32 SITE: Clean Catch/Voided R E S U L T S URINE CULTURE,BACTERIAL FINAL 12/24/22 09:57 MIXED URETHRAL ELIANA. Normal [facility] Comment on above: Performed By: #### I RNPR #### [facility] [address] [place] [address] HCG ( test) Ql (U)o n 01-19-2022 [employer] HCG QUALITATIVE, URINEon HCG ( test) Ql (U) Negative [employer] No Panel Informationon 01-19 Interpretation and review of laboratory results Abnormal [facility] URINALYSIS, MACROon 01-19-20 Bilirubin Ql (U) Negative NEGATIVE [facility] Clarity (U) CLEAR CLEAR [facility] Color (U) YELLOW YELLOW [facility] Glucose Test strip (U) [Mass/Vol] Negative NEGATIVE mg/dl [facility] Hemoglobin Ql (U) Negative NEGATIVE [facility] Ketones (U) [Mass/Vol] 40 mg/dL Abnormal NEGATIVE [facility] Leukocyte esterase Test strip Ql (U) Negative NEGATIVE [facility] Nitrite Ql (U) Negative NEGATIVE [facility] pH (U) 6.0 [pH] [facility] Protein Ql (U) 30 mg/dl Abnormal NEGATIVE [facility] Specific gravity (U) [Rel density] 1.020 [facility] Urobilinogen (U) [Mass/Vol] 0.2 mg/dL [facility] URINE HCG QUALon 01-19-2022 Beta HCG ( test) Ql (U) Negative Normal [facility] URINE MACROSCOPICon 01-19-20 22 Bilirubin Ql (U) Negative Normal NEGATIVE [facility] Clarity (U) CLEAR Normal CLEAR [facility] Color (U) YELLOW Normal YELLOW [facility] Glucose Ql (U) Negative Normal NEGATIVE [facility] pH (U) 6.0 [pH] Normal 5.0-7.0 [facility] Protein (U) [Mass/Vol] 30 mg/dL Abnormal NEGATIVE [facility] URINE HEMOGLOBIN Negative Normal NEGATIVE [facility] URINE KETONE 40 mg/dl Abnormal NEGATIVE [facility] URINE LEUKOTEST Negative Normal NEGATIVE [facility] URINE NITRATES Negative Normal NEGATIVE [facility] URINE SPEC GRAVITY 1.020 Normal 1.010-1.025 [facility] Urobilinogen Qn (U) 0.2 {Berry'U}/dL Normal 0.2-1.0 [facility] URINE MICROSCOPICon 01-19-20 22 BACTERIA TRACE Abnormal NEGATIVE [facility] CASTS NONE Normal NONE [facility] CRYSTAL NONE Normal NONE [facility] Epithelial cells LM Ql (Urine sed) 1 TO 5 Normal [facility] Mucus Ql (Urine sed) TRACE Abnormal NEGATIVE [facility] URINE COMMENT CULTURE CRITERIA NOT MET, NO CULTURE PERFORMED. Normal [facility] URINE RBC'S Negative Normal NEGATIVE [facility] URINE WBC'S 1 TO 5 Normal NEGATIVE [facility] Bacteria LM.HPF (Urine sed) [#/Area] TRACE Abnormal NEGATIVE [facility] Casts LM.LPF (Urine sed) [#/Area] NONE NONE /LPF [facility] Crystals LM Nom (Urine sed) NONE NONE [facility] Epithelial cells LM Ql (Urine sed) 1 TO 5 /HPF [facility] Mucus Ql (Urine sed) TRACE Abnormal NEGATIVE [facility] RBC LM.HPF (Urine sed) [#/Area] Negative NEGATIVE /HPF [facility] Urine sediment comments LM Pineda (Urine sed) CULTURE CRITERIA NOT MET, NO CULTURE PERFORMED. [facility] WBC LM.HPF (Urine sed) [#/Area] 1 TO 5 NEGATIVE /HPF [facility] Blood type and Indirect anti body screen panel (Bld)Ordered By: Akil Rossi on 04-25-2021 ABO and Rh group Nom (Bld) Blood group O Rh(D) positive [facility] Blood group antibody screen Ql Negative [facility] Specimen Expires 04/28/2021 23:[address] [facility] CBC panel Auto (Bld)Ordered By: Akil Rossi on 04-25-2021 Erythrocyte distribution width (RBC) [Entitic vol] 14.3 % 11.6 - 14.8 % [facility] Hematocrit (Bld) [Volume fraction] 32.8 % Low 36.0 - 46.0 % [facility] Hemoglobin (Bld) [Mass/Vol] 11.2 g/dL Low 12.0 - 16.0 g/dL [facility] Interpretation and review of laboratory results Abnormal [facility] MCH (RBC) [Entitic mass] 30.1 pg 26.0 - 34.0 pg [facility] MCHC (RBC) [Mass/Vol] 34.1 g/dL 31.0 - 37.0 g/dL [facility] MCV (RBC) [Entitic vol] 88.2 fL 80.0 - 100.0 fL [facility] Nucleated RBC (Bld) [#/Vol] 0.00 10*3/uL [facility] Nucleated RBC/100 WBC (Bld) [Ratio] 0.0 % [facility] Platelet mean volume (Bld) [Entitic vol] 9.8 fL 9.4 - 12.4 fL [facility] Platelets (Bld) [#/Vol] 213 10*3/uL [facility] RBC (Bld) [#/Vol] 3.72 10*6/uL Low [facility] ealth WBC (Bld) [#/Vol] 10.45 10*3/uL [facility] DRUGS OF ABUSE SCREEN, URINE Ordered By: Akil Rossi on 04-25-2021 Amphetamines Ql (U) Not detected None Detected [facility] Comment on above: Urine Amphetamine Cu toff: < 1000 ng/mL = None Detected Barbiturates Screen Ql (U) Not detected None Detected [facility] Comment on above: Urine Barbiturates C utoff: < 200 ng/mL = None Detected Benzodiazepines Ql (U) Not detected None Detected [facility] Comment on above: Urine Benzodiazepine Cutoff: < 200 ng/mL = None Detected Buprenorphine Ql (U) Not detected None Detected [facility] Comment on above: Urine Buprenorphine Cutoff: < 5 ng/mL = None Detected Cannabinoids Screen Ql (U) Not detected None Detected [facility] Comment on above: Urine Cannabinoids C utoff: < 50 ng/mL = None Detected Cocaine Ql (U) Not detected None Detected [facility] Comment on above: Urine Cocaine Cutoff : < 300 ng/mL = None Detected fentaNYL+Norfentanyl Screen Ql (U) Not detected None Detected [facility] Comment on above: Urine Fentanyl Cutof f: < 1 ng/mL = None Detected Interpretation and review of laboratory results Normal [facility] Methadone Screen Ql (U) Not detected None Detected [facility] Comment on above: Urine Methadone Cuto ff: < 300 ng/mL = None Detected Opiates Screen Ql (U) Not detected None Detected [facility] Comment on above: Urine Opiates Cutoff : < 300 ng/mL = None Detected oxyCODONE Ql (U) Not detected None Detected [facility] Comment on above: Urine Oxycodone Cuto ff: < 100 ng/mL = None Detected Screen results shoul d be used for treatment purposes only. [facility] URINALYSISOrdered By: Chris Rossi on 04-25-2021 Bacteria Auto Ql (U) Few Abnormal None Se en /hpf [facility] Clarity Refractometry automated (U) Hazy Abnormal Clear [facility] Color (U) Yellow Colorless, Yellow [facility] Glucose Auto test strip (U) [Mass/Vol] Negative Negative mg/dL [facility] Ketones (U) [Mass/Vol] Trace Abnormal Negat timothy mg/dL [facility] Leukocyte esterase Auto test strip Ql (U) Trace Abnormal Negative [facility] h pH (U) 7.0 [pH] [facility] Specific gravity (U) [Rel density] 1.019 [facility] UrinalysisOrdered By: Chris Rossi on 04-25-2021 Bilirubin Ql (U) Negative Negative [facility] Epithelial cells.squamous Auto (Urine sed) [#/Area] 2 [facility] Hemoglobin Auto test strip Ql (U) Negative Negative [facility] Interpretation and review of laboratory results Abnormal [facility] Mucus Auto (Urine sed) [#/Area] Rare None Seen, Rare /lpf [facility] Nitrite Auto test strip Ql (U) Negative Negative [facility] Protein (U) [Mass/Vol] Negative Negat timothy mg/dL [facility] RBC Auto (Urine sed) [#/Area] 1 [facility] Urobilinogen (U) [Mass/Vol] mg/dL Abnormal <2.0 mg/dL [facility] WBC Auto (Urine sed) [#/Area] 2 [facility] Yeast.budding Computer assisted (U) [#/Area] Rare Abnormal None Seen /hpf [facility] Microscopic examinat ion is performed on all urinalysis samples and only positive findings are reported. The test for blood on the chemical analytic portion of urinalysis may also be positive due to hemoglobinuria and myoglobinuria and if red blood cells are present they are quantified by microscopic examination. [facility] Otheron 03-01-2021 Interpretation and review of laboratory results Abnormal [facility] URINALYSIS, MACROon 03-01-20 21 Bilirubin Ql (U) Negative NEGATIVE [facility] Clarity (U) SL CLOUDY Abnormal CLEAR [facility] Color (U) YELLOW YELLOW [facility] Glucose Test strip (U) [Mass/Vol] Negative NEGATIVE mg/dl [facility] Hemoglobin Ql (U) Negative NEGATIVE [facility] Ketones (U) [Mass/Vol] Negative NEGAT TIMOTHY mg/dl [facility] Leukocyte esterase Test strip Ql (U) SMALL Abnormal NEGATIVE [facility] Nitrite Ql (U) Negative NEGATIVE [facility] pH (U) 6.5 [pH] [facility] Protein Ql (U) 30 mg/dl Abnormal NEGATIVE [facility] Specific gravity (U) [Rel density] >1.030 High [facility] Urobilinogen (U) [Mass/Vol] 0.2 [facility] URINE MICROSCOPICon 03-01-20 21 Bacteria LM.HPF (Urine sed) [#/Area] 1+ Abnormal NEGATIVE [facility] Casts LM.LPF (Urine sed) [#/Area] NONE NONE /LPF [facility] Crystals LM Nom (Urine sed) NONE NONE [facility] Epithelial cells LM Ql (Urine sed) 20 TO 30 /HPF [facility] Mucus Ql (Urine sed) Negative NEGATIVE [facility] RBC LM.HPF (Urine sed) [#/Area] Negative NEGATIVE /HPF [facility] Urine sediment comments LM Pineda (Urine sed) POSSIBLY CONTAMINATED SPECIMEN, CULTURE MUST BE ORDERED SEPARATELY IF DEEMED NECESSARY. [facility] WBC LM.HPF (Urine sed) [#/Area] '5 TO 10 NEGATIVE /HPF [facility] CBCon 02-27-2021 Erythrocyte distribution width (RBC) [Entitic vol] 14.1 % 11.6 - 14.8 % [facility] Hematocrit (Bld) [Volume fraction] 33.4 % Low 36.0 - 46.0 % [facility] Hemoglobin (Bld) [Mass/Vol] 11.1 g/dL Low 12.0 - 16.0 g/dL [facility] Interpretation and review of laboratory results Abnormal [facility] MCH (RBC) [Entitic mass] 31.4 pg 26.0 - 34.0 pg [facility] MCHC (RBC) [Mass/Vol] 33.2 g/dL 31.0 - 37.0 g/dL [facility] MCV (RBC) [Entitic vol] 94.6 fL 80.0 - 100.0 fL [facility] Nucleated RBC (Bld) [#/Vol] 0.00 10*3/uL [facility] Nucleated RBC/100 WBC (Bld) [Ratio] 0.0 % [facility] Platelet mean volume (Bld) [Entitic vol] 10.0 fL 9.4 - 12.4 fL [facility] Platelets (Bld) [#/Vol] 194 10*3/uL [facility] RBC (Bld) [#/Vol] 3.53 10*6/uL Low [facility] WBC (Bld) [#/Vol] 8.68 10*3/uL [facility] Gestational Diabetes Screen (50G)on 02-27-2021 Glucose 1 Hr post 50 g glucose PO [Mass/Vol] 109 mg/dL 65 - 135 mg/dL [facility] Interpretation and review of laboratory results Normal [facility] TSH with Reflex Free T4on Interpretation and review of laboratory results Normal [facility] TSH Qn 0.46 m[IU]/L [facility] CHLAMYDIA/GONORRHOEAE AMPLIF IED RNAon 01-05-2021 C. trachomatis rRNA JEFFRY+probe Ql (Cvx) Negative Negative [facility] Interpretation and review of laboratory results Normal [facility] N. gonorrhoeae rRNA JEFFRY+probe Ql (Cvx) Negative Negative [facility] Trichomonas vaginalis Amplif ied RNAon 01-05-2021 Interpretation and review of laboratory results Normal [facility] T. vaginalis rRNA JEFFRY+probe Ql (Cvx) Negative Negative [facility] US Obstetric 2nd or 3rd Trim lyn Transabdominal Single Fetuson 12-27-2020 IUP identified on today's exam consistent with 17w6d and an DUDLEY of 05-29-2021. Normal FHR and DVP. Anatomy visualized appeared normal. Tracy Jung RDMS The obstetrical ultrasound report and images are reviewed. Comments made are in agreement and follow up as planned. No apparent anomalies / abnormalities on today's study. Final Estimated Date of Delivery: 05/29/21 Akil Rossi MD [facility] HIV 1/2 SCREEN (4TH GENERATI ON)on 12-21-2020 HIV 1+2 Ab+HIV1 p24 Ag IA Ql Negative Negative [facility] Interpretation and review of laboratory results Normal [facility] This assay screens f or the presence of HIV-1, HIV-2 antibodies and for the presence of HIV-1 antigen. Test performed using Consuelo JEFFRY immunoassay system [facility] CBC WITH AUTO DIFFERENTIALon 05-10-2020 Basophils (Bld) [#/Vol] 0.04 10*3/uL [facility] Basophils/100 WBC (Bld) 0.3 % [facility] Eosinophils (Bld) [#/Vol] 0.10 10*3/uL [facility] Eosinophils/100 WBC (Bld) 0.8 % [facility] Erythrocyte distribution width (RBC) [Entitic vol] 13.3 % 11.6 - 14.8 % [facility] Hematocrit (Bld) [Volume fraction] 28.9 % Low 36 - 46 % [facility] Hemoglobin (Bld) [Mass/Vol] 9.5 g/dL Low 12 - 16 g/dL [facility] Immature granulocytes (Bld) [#/Vol] 0.04 10*3/uL [facility] Immature granulocytes/100 WBC (Bld) 0.30 % [facility] Comment on above: The IG parameter is the percentage of metamyelocytes, myelocytes and promyelocytes. An immature granulocyte count (IG) of 1% or more suggests the possibility of infection, an IG count of 3% is very likely related to an infection. Interpretation and review of laboratory results Abnormal [facility] Lymphocytes (Bld) [#/Vol] 2.87 10*3/uL [facility] Lymphocytes/100 WBC (Bld) 23.4 % [facility] MCH (RBC) [Entitic mass] 29.1 pg 26 - 34 pg [facility] MCHC (RBC) [Mass/Vol] 32.9 g/dL 31 - 37 g/dL [facility] MCV (RBC) [Entitic vol] 88.7 fL 80 - 100 fL [facility] Monocytes (Bld) [#/Vol] 1.47 10*3/uL High [facility] Monocytes/100 WBC (Bld) 12.0 % [facility] Neutrophils (Bld) [#/Vol] 7.72 10*3/uL High [facility] Neutrophils/100 WBC (Bld) 63.2 % [facility] Nucleated RBC (Bld) [#/Vol] 0.00 10*3/uL [facility] Nucleated RBC/100 WBC (Bld) [Ratio] 0.0 % [facility] Platelet mean volume (Bld) [Entitic vol] 10.5 fL 9.4 - 12.4 fL [facility] Platelets (Bld) [#/Vol] 177 10*3/uL [facility] RBC (Bld) [#/Vol] 3.26 10*6/uL Low [facility]alth WBC (Bld) [#/Vol] 12.24 10*3/uL [facility] CBCon 05-09-2020 Erythrocyte distribution width (RBC) [Entitic vol] 13.2 % 11.6 - 14.8 % [facility] Hematocrit (Bld) [Volume fraction] 32.6 % Low 36 - 46 % [facility] Hemoglobin (Bld) [Mass/Vol] 10.6 g/dL Low 12 - 16 g/dL [facility] Interpretation and review of laboratory results Abnormal [facility] MCH (RBC) [Entitic mass] 29.4 pg 26 - 34 pg [facility] MCHC (RBC) [Mass/Vol] 32.5 g/dL 31 - 37 g/dL [facility] MCV (RBC) [Entitic vol] 90.3 fL 80 - 100 fL [facility] Nucleated RBC (Bld) [#/Vol] 0.00 10*3/uL [facility] Nucleated RBC/100 WBC (Bld) [Ratio] 0.0 % [facility] Platelet mean volume (Bld) [Entitic vol] 10.1 fL 9.4 - 12.4 fL [facility] Platelets (Bld) [#/Vol] 198 10*3/uL [facility] RBC (Bld) [#/Vol] 3.61 10*6/uL Low [facility] ealt WBC (Bld) [#/Vol] 8.98 10*3/uL [facility] eah COVID-19, Molecularon 2019 Interpretation and review of laboratory results Normal [facility] SARS-CoV-2 Not Detected Not Detected [facility] Comment on above: This test was perfor med under the FDA's Emergency Use Authorization (EUA). Testing was performed using the Romano ID NOW COVID-19 assay on the ID NOW platform. This test has not been approved for use in asymptomatic patients and its performance in this patient population has not been evaluated. Negative results do not rule out the presence of SARS-CoV-2/COVID-19. Fact sheets for the EUA can be found at the following links: For Healthcare Providers: https://www.fda.gov/media/745891/download For Patients: https://www.fda.gov/media/181163/download Syphilis Antibodyon 05-09-20 20 Interpretation and review of laboratory results Normal [facility] T. pallidum Ab Ql (S) Negative Negative [facility] Type and Screenon 05-09-2020 ABO and Rh group Nom (Bld) O Positive [facility] Blood group antibody screen Ql Negative [facility] Specimen Expires 05/12/2020 23:59 EST [facility] US OB FOLLOW UP TRANSABDOMIN AL SINGLE FETUSon 03-09-2020 Growth measurements were consistent with dates. Normal FHR and LISA. Limited anatomy visualized appeared normal. Anterior placenta is >5.5 cm from internal os. Cervix is clear. Cervical length is 5 cm. EFW 1062 grams, +/- 155 grams. Tracy Jung RDMS [facility] CBCon 02-17-2020 Erythrocyte distribution width (RBC) [Entitic vol] 13.8 % 11.6 - 14.8 % [facility] Hematocrit (Bld) [Volume fraction] 33.9 % Low 36 - 46 % [facility] Hemoglobin (Bld) [Mass/Vol] 11.3 g/dL Low 12 - 16 g/dL [facility] Interpretation and review of laboratory results Abnormal [facility] MCH (RBC) [Entitic mass] 31.1 pg 26 - 34 pg [facility] MCHC (RBC) [Mass/Vol] 33.3 g/dL 31 - 37 g/dL [facility] MCV (RBC) [Entitic vol] 93.4 fL 80 - 100 fL [facility] Nucleated RBC (Bld) [#/Vol] 0.00 10*3/uL [facility] Nucleated RBC/100 WBC (Bld) [Ratio] 0.0 % [facility] Platelet mean volume (Bld) [Entitic vol] 9.6 fL 9 - 15.5 fL [facility] Platelets (Bld) [#/Vol] 178 10*3/uL [facility] RBC (Bld) [#/Vol] 3.63 10*6/uL Low [facility] WBC (Bld) [#/Vol] 8.75 10*3/uL [facility] Gestational Diabetes Screen (50G)on 02-17-2020 Glucose 1 Hr post 50 g glucose PO [Mass/Vol] 102 mg/dL 65 - 135 mg/dL [facility] Interpretation and review of laboratory results Normal [facility] Obstetric 2nd or 3rd Trim lyn Transabdominal Single Fetuson 01-03-2020 Measurements were consistent with dates. Normal FHR and DVP. Anatomy visualized appeared normal. Choroid plexus cyst seen left horn measurin.4 cm. Low lying placenta, recheck at 28 weeks. Tracy Jung RDMS The obstetrical ultrasound report and images are reviewed. Comments made are in agreement and follow up as planned. No other apparent anomalies / abnormalities on today's study. Final Estimated Date of Delivery: 05/30/20 Akil Rossi MD [facility] CHLAMYDIA/GONORRHOEAE AMPLIF IED RNAon 10-26-2019 C. trachomatis rRNA JEFFRY+probe Ql (Cvx) Negative Negative [facility] N. gonorrhoeae rRNA JEFFRY+probe Ql (Cvx) Negative Negative [facility] Otheron 10-26-2019 Interpretation and review of laboratory results Normal [facility] Trichomonas vaginalis Amplif ied RNAon 10-26-2019 T. vaginalis rRNA JEFFRY+probe Ql (Cvx) Negative Negative [facility] US Obstetric TransvaginaL Fi rst Trimesteron 10-12-2019 IUP identified on today's exam consistent with 6w6d and an DUDLEY of 05-30-2020. GS and YS were visualized. Normal FHR and ovaries bilaterally. Tracy Jung RDMS Images reviewed . Endovaginal ultrasound reveals intrauterine , gestational sac , Yolk sac , CRL 6wk 6d, cardiac activity noted . Normal uterus, adnexae , and CDS . Final due date 05/30 Akil Rossi MD [facility] CBC, EDIF, PLATELETon 2018 ABSOLUTE BASOPHIL COUNT 0.[address] [facility] Basophils/100 WBC (Bld) 0.4 % 0 - 2 % [facility] Differential cell count method Nom (Bld) AUTO DIFF % [facility] Eosinophils (Bld) [#/Vol] 0.10 10*3/uL X10 [facility] Eosinophils/100 WBC (Bld) 0.9 % 0 - 11 % [facility] Erythrocyte distribution width (RBC) [Ratio] 13.1 % 11.5 - 14.5 % [facility] Hematocrit (Bld) [Volume fraction] 32.9 % Low 36 - 48 % [facility] Hemoglobin (Bld) [Mass/Vol] 11.5 g/dL Low [facility] Interpretation and review of laboratory results Abnormal [facility] Lymphocytes (Bld) [#/Vol] 2.20 10*3/uL X10 [facility] Lymphocytes/100 WBC (Bld) 31.0 % 20 - 55 % [facility] MCH (RBC) [Entitic mass] 31.6 pg 26 - [address] [facility] MCHC (RBC) [Mass/Vol] 34.9 g/dL [facility] MCV (RBC) [Entitic vol] 90.[address] [facility] Monocytes (Bld) [#/Vol] 1.0 10*3/uL X10 [facility] Monocytes/100 WBC (Bld) 14.2 % High 0 - 10 % [facility] Neutrophils (Bld) [#/Vol] 3.8 10*3/uL [facility] Neutrophils/100 WBC (Bld) 53.5 % 37 - 75 % [facility] Platelet mean volume (Bld) [Entitic vol] 7.4 fL [facility] Platelets (Bld) [#/Vol] 228 10*3/uL [facility] [employer] RBC (Bld) [#/Vol] 3.63 10*6/uL Low [facility] [employer] WBC (Bld) [#/Vol] 7.1 10*3/uL [facility] CHEM 7 (LYTES,BUN,CREA,GLUC) on 06-11-2019 Chloride [Moles/Vol] 107 mmol/L [facility] [employer] Comment on above: Please note: Triglyc eride levels of 600mg/dL or higher may positively bias chloride results by approximately 2.1 mmol CO2 [Moles/Vol] 24 mmol/L [facility] Creatinine [Mass/Vol] 0.85 mg/dL [employer] GFR/1.73 sq M predicted among blacks MDRD (S/P/Bld) [Vol rate/Area] mL/min/{1.73_m2} ml/min/1.73s q.m [facility] [employer] GFR/1.73 sq M predicted among non-blacks MDRD (S/P/Bld) [Vol rate/Area] mL/min/{1.73_m2} ml/min/1.73s q.m [facility] GFR/1.73 sq M predicted among non-blacks MDRD (S/P/Bld) [Vol rate/Area] Average GFR for 20-29 years old = 116. [facility] Comment on above: Chronic Kidney disea se, GFR = <60. Kidney failure, GFR = <15. The GFR estimate is not adjusted for extreme body surface area or acute process, nor has it been validated for women or ethnic groups other than and . Glucose post fast [Mass/Vol] 82 mg/dL [facility] Comment on above: NORMAL <100 mg/dL PREDIABETES 101-126 mg/dL DIABETES 126 mg/dL or higher Potassium [Moles/Vol] 3.6 mmol/L [employer] Sodium [Moles/Vol] 139 mmol/L [email or web address] Urea nitrogen [Mass/Vol] 10 mg/dL [facility] HCG QUALITATIVE, URINEon HCG ( test) Ql (U) Negative [facility] HEPATIC FUNCTION PANELon Albumin [Mass/Vol] 3.7 g/dL [facility] ALP [Catalytic activity/Vol] 49 U/L [facility] ALT [Catalytic activity/Vol] 24 U/L [facility] AST [Catalytic activity/Vol] 20 U/L [facility] Bilirubin [Mass/Vol] 0.3 mg/dL [facility] Bilirubin.direct [Mass/Vol] 0.0 mg/dL [facility] Protein [Mass/Vol] 7.6 g/dL [facility] LIPASEon 06-11-2019 Lipase [Catalytic activity/Vol] 58 U/L 23 - 300 U/L [facility] Otheron 06-11-2019 Interpretation and review of laboratory results Abnormal [facility] URINALYSIS, MACROon 06-11-20 19 Bilirubin Ql (U) Negative NEGATIVE [facility] Clarity (U) CLEAR CLEAR [facility] Color (U) YELLOW YELLOW [facility] Glucose Test strip (U) [Mass/Vol] Negative NEGATIVE mg/dl [facility] Hemoglobin Ql (U) Negative NEGATIVE [facility] Ketones (U) [Mass/Vol] TRACE Abnormal NEGAT TIMOTHY mg/dl [facility] Leukocyte esterase Test strip Ql (U) TRACE Abnormal NEGATIVE [facility] Nitrite Ql (U) Negative NEGATIVE [facility] pH (U) 6.0 [pH] [facility] Protein Ql (U) Negative NEGATIVE mg/dl [facility] Specific gravity (U) [Rel density] 1.[address] [facility] Urobilinogen (U) [Mass/Vol] 0.2 mg/dl 0.2 - 1 mg/dl [facility] URINE MICROSCOPICon 06-11-20 19 Bacteria LM.HPF (Urine sed) [#/Area] TRACE Abnormal NEGATIVE [facility] Casts LM.LPF (Urine sed) [#/Area] NONE NONE /LPF [facility] Crystals LM Nom (Urine sed) NONE NONE [facility] Epithelial cells LM Ql (Urine sed) 10 TO 20 /HPF [facility] Mucus Ql (Urine sed) Negative NEGATIVE [facility] RBC LM.HPF (Urine sed) [#/Area] Negative NEGATIVE /HPF [facility] Urine sediment comments LM Pineda (Urine sed) PHYSICIAN REQUESTED CULTURE [facility] WBC LM.HPF (Urine sed) [#/Area] 1 TO 5 NEGATIVE /HPF [facility] CBC, EDIF, PLATELETon 2018 ABSOLUTE BASOPHIL COUNT 0.0 X10 [facility] Basophils/100 WBC (Bld) 0.5 % 0 - 2 % [facility] Differential cell count method Nom (Bld) AUTO DIFF % [facility] Eosinophils (Bld) [#/Vol] 0.10 10*3/uL X10 [facility] Eosinophils/100 WBC (Bld) 0.7 % 0 - 11 % [facility] Erythrocyte distribution width (RBC) [Ratio] 13.3 % 11.5 - 14.5 % [facility] Hematocrit (Bld) [Volume fraction] 35.6 % Low 36 - 48 % [facility] Hemoglobin (Bld) [Mass/Vol] 12.3 g/dL [facility] Lymphocytes (Bld) [#/Vol] 2.30 10*3/uL X10 [facility] Lymphocytes/100 WBC (Bld) 26.0 % 20 - 55 % [facility] MCH (RBC) [Entitic mass] 31.4 pg 26 - 35 PG [facility] MCHC (RBC) [Mass/Vol] 34.5 g/dL [facility] MCV (RBC) [Entitic vol] 90.9 fL [facility] Monocytes (Bld) [#/Vol] 1.3 10*3/uL X10 [facility] Monocytes/100 WBC (Bld) 14.8 % High 0 - 10 % [facility] Neutrophils (Bld) [#/Vol] 5.1 10*3/uL [facility] Neutrophils/100 WBC (Bld) 58.0 % 37 - 75 % [facility] Platelet mean volume (Bld) [Entitic vol] 8.1 fL [facility] Platelets (Bld) [#/Vol] 220 10*3/uL [facility] RBC (Bld) [#/Vol] 3.92 10*6/uL Low [facility] WBC (Bld) [#/Vol] 8.7 10*3/uL [facility] COMPREHENSIVE METABOLIC PANE Ryan 06-09-2019 Albumin [Mass/Vol] 3.7 G/dl 3.5 - 5 G/dl [facility] Albumin/Globulin [Mass ratio] 1.0 {ratio} Low [facility] ALP [Catalytic activity/Vol] 53 U/L [facility] ALT [Catalytic activity/Vol] 23 U/L [facility] AST [Catalytic activity/Vol] 28 U/L [facility] Bilirubin [Mass/Vol] 0.3 mg/dL [facility] Calcium [Mass/Vol] 8.3 mg/dL Low [facility] [employer] Chloride [Moles/Vol] 104 mmol/L [facility] Comment on above: Please note: Triglyc eride levels of 600mg/dL or higher may positively bias chloride results by approximately 2.1 mmol CO2 [Moles/Vol] 26 mmol/L [facility] Creatinine [Mass/Vol] 0.86 mg/dL [employer] GFR/1.73 sq M predicted among blacks MDRD (S/P/Bld) [Vol rate/Area] mL/min/{1.73_m2} ml/min/1.73s q.m [facility] GFR/1.73 sq M predicted among non-blacks MDRD (S/P/Bld) [Vol rate/Area] mL/min/{1.73_m2} ml/min/1.73s q.m [facility] GFR/1.73 sq M predicted among non-blacks MDRD (S/P/Bld) [Vol rate/Area] Average GFR for 20-29 years old = 116. [facility] Comment on above: Chronic Kidney disea se, GFR = <60. Kidney failure, GFR = <15. The GFR estimate is not adjusted for extreme body surface area or acute process, nor has it been validated for women or ethnic groups other than and . Glucose post fast [Mass/Vol] 97 mg/dL [email or web address] Comment on above: NORMAL <100 mg/dL PREDIABETES 101-126 mg/dL DIABETES 126 mg/dL or higher Potassium [Moles/Vol] 3.5 mmol/L [employer] Protein [Mass/Vol] 7.3 g/dL [email or web address] Sodium [Moles/Vol] 139 mmol/L [facility] [employer] Urea nitrogen [Mass/Vol] 11 mg/dL [email or web address] ABD[facility]/PELVIS WITHOUT CO NTRASTon 06-09-2019 User, Interfaces - 06/09/2019 4:[address] SCAN ABDOMEN AND PELVIS, RENAL STONE PROTOCOL CLINICAL HISTORY: Left flank pain. COMPARISON: Chest x-ray 06/09/2019. TECHNIQUE: Unenhanced helical imaging of the abdomen and pelvis is performed. Multiplanar reconstructions are submitted. Dose reduction techniques were achieved by using automated exposure control and/or adjustment of mA and/or kV according to patient size and/or use of iterative reconstruction technique. FINDINGS: ABDOMEN: The imaged lung bases are clear. Minimal perinephric stranding is seen surrounding the left kidney with infiltration at the left renal hilum present as well (images 24 to 41, series 3). The liver, spleen, adrenals, right kidney, pancreas, gallbladder, and biliary ducts are normal. No renal or ureteric stones are present. There is no hydronephrosis. There is no free fluid, fluid collection, or adenopathy. The stomach, proximal small bowel, and imaged colon are normal in course and caliber. No bowel wall thickening is seen. The aorta and IVC are within normal limits. No acute osseous lesion is seen. PELVIS: The distal ureters, urinary bladder, rectosigmoid colon, distal small bowel loops and appendix are normal. Physiologic pelvic free fluid is seen in the posterior cul-de-sac. The uterus and adnexa appear normal. No acute osseous abnormality is present. IMPRESSION IMPRESSION: 1. Minimal left perinephric infiltration and fluid without hydronephrosis. These findings suggest ascending urinary tract infection. Correlation with urinalysis is recommended. 2. No urinary tract calculi. 3. Normal appendix and no adenopathy. [facility] CT SCAN ABDOMEN AND PELVIS, RENAL STONE PROTOCOL CLINICAL HISTORY: Left flank pain. COMPARISON: Chest x-ray 06/09/2019. TECHNIQUE: Unenhanced helical imaging of the abdomen and pelvis is performed. Multiplanar reconstructions are submitted. Dose reduction techniques were achieved by using automated exposure control and/or adjustment of mA and/or kV according to patient size and/or use of iterative reconstruction technique. FINDINGS: ABDOMEN: The imaged lung bases are clear. Minimal perinephric stranding is seen surrounding the left kidney with infiltration at the left renal hilum present as well (images 24 to 41, series 3). The liver, spleen, adrenals, right kidney, pancreas, gallbladder, and biliary ducts are normal. No renal or ureteric stones are present. There is no hydronephrosis. There is no free fluid, fluid collection, or adenopathy. The stomach, proximal small bowel, and imaged colon are normal in course and caliber. No bowel wall thickening is seen. The aorta and IVC are within normal limits. No acute osseous lesion is seen. PELVIS: The distal ureters, urinary bladder, rectosigmoid colon, distal small bowel loops and appendix are normal. Physiologic pelvic free fluid is seen in the posterior cul-de-sac. The uterus and adnexa appear normal. No acute osseous abnormality is present. [facility] IMPRESSION: 1. Minim al left perinephric infiltration and fluid without hydronephrosis. These findings suggest ascending urinary tract infection. Correlation with urinalysis is recommended. 2. No urinary tract calculi. 3. Normal appendix and no adenopathy. [facility] CT PE STUDYon 06-09-2019 IMPRESSION: 1. No ac [place] or chronic pulmonary arterial embolism. 2. No acute cardiopulmonary process. 3. No thoracic adenopathy. 4. Redemonstration of mild perinephric stranding surrounding the left kidney suggesting ascending urinary tract infection. [facility] User, Interfaces - 06/09/2019 5:[address] CHEST POST CONTRAST, CTA PULMONARY ARTERIES CLINICAL HISTORY: SOB, INCREASED D-DIMER, LT RIB/CP. COMPARISON: None. TECHNIQUE: Following uneventful administration of 75 mL Omnipaque 350 IV intravenous contrast, helical imaging of the chest was performed using PE protocol. Multiplanar reformatted images and MIP sequences are reconstructed. Dose reduction techniques were achieved by using automated exposure control and/or adjustment of mA and/or kV according to patient size and/or use of iterative reconstruction technique. FINDINGS: The contrast bolus is technically adequate. There is no acute or chronic pulmonary arterial embolism. Main pulmonary artery is normal caliber. Cardiac size is within normal limits. There is no pericardial effusion. The thoracic aorta is intact with normal origins of the great vessels. The imaged thyroid is unremarkable. The central airways are patent. There is no adenopathy. The lungs, pleural spaces, and pulmonary vascularity are normal. No acute osseous lesion is seen. Within the imaged upper abdomen mild left perinephric infiltration is partially imaged (image 147, series 4). IMPRESSION IMPRESSION: 1. No acute or chronic pulmonary arterial embolism. 2. No acute cardiopulmonary process. 3. No thoracic adenopathy. 4. Redemonstration of mild perinephric stranding surrounding the left kidney suggesting ascending urinary tract infection. [facility] CT CHEST POST CONTRA ST, CTA PULMONARY ARTERIES CLINICAL HISTORY: SOB, INCREASED D-DIMER, LT RIB/CP. COMPARISON: None. TECHNIQUE: Following uneventful administration of 75 mL Omnipaque 350 IV intravenous contrast, helical imaging of the chest was performed using PE protocol. Multiplanar reformatted images and MIP sequences are reconstructed. Dose reduction techniques were achieved by using automated exposure control and/or adjustment of mA and/or kV according to patient size and/or use of iterative reconstruction technique. FINDINGS: The contrast bolus is technically adequate. There is no acute or chronic pulmonary arterial embolism. Main pulmonary artery is normal caliber. Cardiac size is within normal limits. There is no pericardial effusion. The thoracic aorta is intact with normal origins of the great vessels. The imaged thyroid is unremarkable. The central airways are patent. There is no adenopathy. The lungs, pleural spaces, and pulmonary vascularity are normal. No acute osseous lesion is seen. Within the imaged upper abdomen mild left perinephric infiltration is partially imaged (image 147, series 4). [place] D-DIMER,QUANTITATIVEon 06-09 Fibrin D-dimer FEU (PPP) [Mass/Vol] 0.91 Critically high [facility] Comment on above: CALLED TO AND READ B ACK BY DAVID LEUNG RN IN ER 06/09/2019 03:44 GM LIPASEon 06-09-2019 Lipase [Catalytic activity/Vol] 62 U/L 23 - 300 U/L [facility] Otheron 06-09-2019 Interpretation and review of laboratory results Abnormal [facility] XR CHEST PA AND LATERALon User, Interfaces - 06/09/2019 4:10 AM EDT PA AND LATERAL CHEST CLINICAL HISTORY: Left rib pain. COMPARISON: None. FINDINGS: Two views are submitted. The lungs and pleural spaces are clear. Pulmonary vascular markings are normal. The cardiomediastinal silhouette is within normal limits. No bony lesions are shown. IMPRESSION IMPRESSION: No acute cardiopulmonary abnormality. [facility] IMPRESSION: No acute cardiopulmonary abnormality. [place] PA AND LATERAL CHEST CLINICAL HISTORY: Left rib pain. COMPARISON: None. FINDINGS: Two views are submitted. The lungs and pleural spaces are clear. Pulmonary vascular markings are normal. The cardiomediastinal silhouette is within normal limits. No bony lesions are shown. [facility] HCG QUALITATIVE, URINEon HCG ( test) Ql (U) Negative [facility] Otheron 06-08-2019 Interpretation and review of laboratory results Abnormal [facility] URINALYSIS, MACROon 06-08-20 19 Bilirubin Ql (U) Negative NEGATIVE [facility] Clarity (U) CLEAR CLEAR [facility] Color (U) YELLOW YELLOW [facility] Glucose Test strip (U) [Mass/Vol] Negative NEGATIVE mg/dl [facility] Hemoglobin Ql (U) TRACE-LYSED Abnormal NEGATIVE [facility] Ketones (U) [Mass/Vol] Negative NEGAT [place] mg/dl [facility] Leukocyte esterase Test strip Ql (U) SMALL Abnormal NEGATIVE [facility] Nitrite Ql (U) Negative NEGATIVE [facility] pH (U) 6.5 [pH] [facility] Protein Ql (U) Negative NEGATIVE mg/dl [facility] Specific gravity (U) [Rel density] 1.010 [facility] Urobilinogen (U) [Mass/Vol] 0.2 mg/dl 0.2 - 1 mg/dl [facility] URINE MICROSCOPICon 06-08-20 19 Bacteria LM.HPF (Urine sed) [#/Area] 2+ Abnormal NEGATIVE [facility] Casts LM.LPF (Urine sed) [#/Area] NONE NONE /LPF [facility] Crystals LM Nom (Urine sed) NONE NONE [facility] Epithelial cells LM Ql (Urine sed) TOO NUMEROUS TO COUNT /HPF [facility] Mucus Ql (Urine sed) Negative NEGATIVE [facility] RBC LM.HPF (Urine sed) [#/Area] 1 TO 5 NEGATIVE /HPF [facility] Urine sediment comments LM [place] (Urine sed) POSSIBLY CONTAMINATED SPECIMEN, CULTURE MUST BE ORDERED SEPARATELY IF DEEMED NECESSARY. [facility] WBC LM.HPF (Urine sed) [#/Area] 1 TO 5 NEGATIVE /HPF [facility] HCG QUALITATIVE, URINEon HCG ( test) Ql (U) Negative [facility] Otheron 04-23-2019 Interpretation and review of laboratory results Abnormal [facility] URINALYSIS, MACROon 04-23-20 19 Bilirubin Ql (U) Negative NEGATIVE [facility] Clarity Nom (U) CLEAR CLEAR [facility] Color Nom (U) YELLOW [facility]LLOW [facility] Glucose Test strip mass conc (U) Negative NEGATIVE mg/dl [facility] Hemoglobin Ql (U) TRACE-INTACT Abnormal NEGATIVE [facility] Ketones mass conc (U) Negative NEGATI VE mg/dl [facility] Leukocyte esterase Test strip Ql (U) Negative NEGATIVE [facility] Nitrite Ql (U) Negative NEGATIVE [facility] pH (U) 6.0 [pH] [facility] Protein Ql (U) Negative NEGATIVE mg/dl [facility] Specific gravity Relative Density (U) 1.025 [facility] Urobilinogen mass conc (U) 0.2 mg/dl 0.2 - 1 mg/dl [facility] URINE MICROSCOPICon 04-23-20 19 Bacteria LM.HPF #/area (Urine sed) TRACE Abnormal NEGATIVE [facility] Casts LM.LPF #/area (Urine sed) NONE NONE /LPF [facility] Crystals LM Nom (Urine sed) NONE NONE [facility] Epithelial cells LM Ql (Urine sed) 5 TO 10 /HPF [facility] Mucus Ql (Urine sed) Negative NEGATIVE [facility] RBC LM.HPF #/area (Urine sed) 1 TO 5 NEGATIVE /HPF [facility] Urine sediment comments LM [place] (Urine sed) CULTURE CRITERIA NOT MET, NO CULTURE PERFORMED. [facility] WBC LM.HPF #/area (Urine sed) Negative NEGATIVE /HPF [facility] HCG QUALITATIVE, URINEon HCG ( test) Ql (U) Negative Invalid Interpretation Code LAB, [facility] Otheron 11-17-2018 Interpretation and review of laboratory results Abnormal Invalid Interpretation Code [facility] - [address] - [place] URINALYSIS, MACROon 11-17-20 18 Bilirubin Ql (U) Negative Invalid Interpretation Code NEGATIVE [facility] - [address] - [place] Clarity Nom (U) CLEAR Invalid Interpretation Code CLEAR [facility] - [address] - [place] Color Nom (U) YELLOW Invalid Interpretation Code YELLOW [facility] - [address] - [place] Glucose Test strip mass conc (U) Negative Invalid Interpretation Code NEGATIVE mg/dl [facility] - [address] - [place] Hemoglobin Test strip Ql (U) Negative Invalid Interpretation Code NEGATIVE [facility] - [address] - [place] Ketones mass conc (U) 15 mg/dl Abnormal NEGATIVE [facility] - [address] - [place] Leukocyte esterase Test strip Ql (U) Negative Invalid Interpretation Code NEGATIVE [facility] - [address] - [place] Nitrite Test strip Ql (U) Negative Invalid Interpretation Code NEGATIVE [facility] - [address] - [place] pH Test strip (U) 7.0 [pH] Invalid Interpretation Code [facility] - [address] - [place] Protein Test strip Ql (U) TRACE Abnormal NEGATIVE mg/dl [facility] - [facility] [address] - [place] Specific gravity Relative Density (U) 1.025 Invalid Interpretation Code [facility] - [facility] [address] - [place] Urobilinogen mass conc (U) 1.0 mg/dl Invalid Interpretation Code 0.2 - 1 mg/dl [facility] - [facility] [address] - [place] URINE MICROSCOPICon 12-18-20 18 Bacteria LM.HPF #/area (Urine sed) Negative Invalid Interpretation Code NEGATIVE [facility] - [address] - [place] Casts LM.LPF #/area (Urine sed) NONE Invalid Interpretation Code NONE /LPF [facility] - [facility] [address] - [place] Crystals LM Nom (Urine sed) RARE Abnormal NONE [facility] - [facility] [address] - [place] Comment on above: AMORPHOUS URATES Epithelial cells LM Ql (Urine sed) NONE Invalid Interpretation Code /HPF [facility] - [address] - [place] Mucus LM Ql (Urine sed) Negative Invalid Interpretation Code NEGATIVE [facility] - [facility] [address] - [place] RBC LM.HPF #/area (Urine sed) Negative Invalid Interpretation Code NEGATIVE /HPF [facility] - [address] - [place] Urine sediment comments LM [place] (Urine sed) CULTURE CRITERIA NOT MET, NO CULTURE PERFORMED. Invalid Interpretation Code [facility] - [address] - [place] WBC LM.HPF #/area (Urine sed) Negative Invalid Interpretation Code NEGATIVE /HPF [facility] - [address] - [place] SENDOUT TESTon 12-12-2017 SENDOUT TEST SPECIMEN SENT TO REFERENCE LAB FOR TESTING Normal [facility] Comment on above: Result Comment: PAP [id number] performed at [place] [address] Performed By: #### U NKSO ####Testing performed at [address] [address] PROGRESSon 12-11-2017 [facility] NOTES Normal [facility] Vital Signs Date Time Vital Sign Value Performing Clinician Facility 05-09-2025 13:24-0400 Body height 160.02 cm No Primary Care Physician [facility] 05-09-2025 13:24-0400 Body mass index (BMI) [Ratio] 27.8 kg/m2 No Primary Care Physician [facility] 05-09-2025 13:24-0400 Body temperature 97.1 [degF] No Primary Care Physician [facility] 05-09-2025 13:24-0400 Body weight 71.44 kg No Primary Care Physician [facility] 05-09-2025 13:24-0400 Diastolic blood pressure 78 mm[Hg] No Primary Care Physician [facility] 05-09-2025 13:24-0400 Heart rate 93 /min No Primary Care Physician [facility] 05-09-2025 13:24-0400 Respiratory rate 16 /min No Primary Care Physician [facility] 05-09-2025 13:24-0400 SaO2% (BldA) [Mass fraction] 99 % No Primary Care Physician [facility] 05-09-2025 13:24-0400 Systolic blood pressure 148 mm[Hg] No Primary Care Physician [facility] 05-04-2025 10:11-0400 Body temperature 97.9 [degF] No Primary Care Physician [facility] 05-04-2025 10:11-0400 Diastolic blood pressure 101 mm[Hg] No Primary Care Physician [facility] 05-04-2025 10:11-0400 Heart rate 78 /min No Primary Care Physician [facility] 05-04-2025 10:11-0400 Respiratory rate 16 /min No Primary Care Physician [facility] 05-04-2025 10:11-0400 SaO2% (BldA) [Mass fraction] 97 % No Primary Care Physician [facility] 05-04-2025 10:11-0400 Systolic blood pressure 148 mm[Hg] No Primary Care Physician [facility] 05-04-2025 09:17-0400 Body mass index (BMI) [Ratio] 28.4 kg/m2 No Primary Care Physician [facility] 05-04-2025 09:17-0400 Body weight 72.9 kg No Primary Care Physician [facility] 02-21-2025 16:46-0400 Body mass index (BMI) [Ratio] 27.1 kg/m2 No Primary Care Physician [facility] 02-21-2025 16:46-0400 Body temperature 98.9 [degF] No Primary Care Physician [facility] 02-21-2025 16:46-0400 Body weight 69.62 kg No Primary Care Physician [facility] 02-21-2025 16:46-0400 Diastolic blood pressure 60 mm[Hg] No Primary Care Physician [facility] 02-21-2025 16:46-0400 Heart rate 69 /min No Primary Care Physician [facility] 02-21-2025 16:46-0400 Respiratory rate 16 /min No Primary Care Physician [facility] 02-21-2025 16:46-0400 SaO2% (BldA) [Mass fraction] 99 % No Primary Care Physician [facility] 02-21-2025 16:46-0400 Systolic blood pressure 122 mm[Hg] No Primary Care Physician [facility] 01-13-2025 08:46-0500 Body mass index (BMI) [Ratio] 27.4 kg/m2 No Primary Care Physician [facility] 01-13-2025 08:46-0500 Body temperature 96.6 [degF] No Primary Care Physician [facility] 01-13-2025 08:46-0500 Body weight 70.3 kg No Primary Care Physician [facility] 01-13-2025 08:46-0500 Diastolic blood pressure 72 mm[Hg] No Primary Care Physician [facility] 01-13-2025 08:46-0500 Heart rate 78 /min No Primary Care Physician [facility] 01-13-2025 08:46-0500 Respiratory rate 16 /min No Primary Care Physician [facility] 01-13-2025 08:46-0500 SaO2% (BldA) [Mass fraction] 99 % No Primary Care Physician [facility] 01-13-2025 08:46-0500 Systolic blood pressure 128 mm[Hg] No Primary Care Physician [facility] 05-10-2024 15:45-0400 Body mass index (BMI) [Ratio] 25.95 kg/m2 Hector Cerna MD Work Phone: [facility] 05-10-2024 15:45-0400 Body temperature 98.4 [degF] Hector Cerna MD Work Phone: [facility] 05-10-2024 15:45-0400 Body weight 66.45 kg Hector Cerna MD Work Phone: [facility] 04-27-2024 19:45-0400 Diastolic blood pressure 94 mm[Hg] No Generic Provider [facility] 04-27-2024 19:45-0400 Heart rate 72 /min No Generic Provider [facility] 04-27-2024 19:45-0400 Respiratory rate 16 /min No Generic Provider [facility] 04-27-2024 19:45-0400 SaO2% (BldA) [Mass fraction] 99 % No Generic Provider [facility] 04-27-2024 19:45-0400 Systolic blood pressure 145 mm[Hg] No Generic Provider [facility] 04-27-2024 17:15-0400 Body height 160 cm No Generic Provider [facility] 04-27-2024 17:15-0400 Body mass index (BMI) [Ratio] 25.86 kg/m2 No Generic Provider [facility] 04-27-2024 17:15-0400 Body temperature 97.5 [degF] No Generic Provider [facility] 04-27-2024 17:15-0400 Body weight 66.22 kg No Generic Provider [facility] 04-19-2024 08:58-0400 Body mass index (BMI) [Ratio] 26 kg/m2 Andres August MD Work Phone: [facility] 04-19-2024 08:58-0400 Body weight 66.59 kg Andres August MD Work Phone: [facility] 04-19-2024 08:58-0400 Diastolic blood pressure 89 mm[Hg] Andres August MD Work Phone: [facility] 04-19-2024 08:58-0400 Heart rate 82 /min Andres August MD Work Phone: [facility] 04-19-2024 08:58-0400 Systolic blood pressure 134 mm[Hg] Andres August MD Work Phone: [facility] 02-10-2024 18:03-0400 Body height 160 cm Herrera Villegas DO Work Phone: [facility] 02-10-2024 18:03-0400 Body mass index (BMI) [Ratio] 25.86 kg/m2 Herrera Villegas DO Work Phone: [facility] 02-10-2024 18:03-0400 Body temperature 97.9 [degF] Herrera Villegas DO Work Phone: [facility] 02-10-2024 18:03-0400 Body weight 66.22 kg Hrerera Villegas DO Work Phone: [facility] 02-10-2024 18:03-0400 Diastolic blood pressure 98 mm[Hg] Herrera Villegas DO Work Phone: [facility] 02-10-2024 18:03-0400 Heart rate 83 /min Herrera Villegas DO Work Phone: [facility] 02-10-2024 18:03-0400 Respiratory rate 16 /min Herrera Villegas DO Work Phone: [facility] 02-10-2024 18:03-0400 SaO2% (BldA) [Mass fraction] 97 % Herrera Villegas DO Work Phone: [facility] 02-10-2024 18:03-0400 Systolic blood pressure 143 mm[Hg] Herrera Villegas DO Work Phone: [facility] 02-03-2024 11:01-0500 Body height 160 cm Hector Cerna MD Work Phone: [facility] 02-03-2024 11:01-0500 Body mass index (BMI) [Ratio] 26.13 kg/m2 Hector Cerna MD Work Phone: [facility] 02-03-2024 11:01-0500 Body temperature 98.1 [degF] Hector Cerna MD Work Phone: [facility] 02-03-2024 11:01-0500 Body weight 66.91 kg Hector Cerna MD Work Phone: [facility] 01-13-2024 14:21-0500 Body height 160 cm Hector Cerna MD Work Phone: [facility] 01-13-2024 14:21-0500 Body mass index (BMI) [Ratio] 25.93 kg/m2 Hector Cerna MD Work Phone: [facility] 01-13-2024 14:21-0500 Body temperature 97.2 [degF] Hector Cerna MD Work Phone: [facility] 01-13-2024 14:21-0500 Body weight 66.41 kg Hector Cerna MD Work Phone: [facility] 01-02-2024 14:43-0500 Respiratory rate 16 /min Hector Cerna MD Work Phone: [facility] 01-02-2024 12:01-0500 Body temperature 98.6 [degF] Hector Cerna MD Work Phone: [facility] 01-02-2024 12:01-0500 Diastolic blood pressure 86 mm[Hg] Hector Cerna MD Work Phone: [facility] 01-02-2024 12:01-0500 Heart rate 88 /min Hector Cerna MD Work Phone: [facility] 01-02-2024 12:01-0500 SaO2% (BldA) [Mass fraction] 98 % Hector Cerna MD Work Phone: [facility] 01-02-2024 12:01-0500 Systolic blood pressure 136 mm[Hg] Hector Cerna MD Work Phone: [facility] 01-01-2024 19:00-0500 Body height 160 cm Hector Cerna MD Work Phone: [facility] 01-01-2024 19:00-0500 Body mass index (BMI) [Ratio] 25.23 kg/m2 Hector Cerna MD Work Phone: [facility] 01-01-2024 19:00-0500 Body weight 64.6 kg Hector Cerna MD Work Phone: [facility] 12-15-2023 08:19-0500 Body height 160 cm Vandana Woodward CNP Work Phone: [facility] 12-15-2023 08:19-0500 Body mass index (BMI) [Ratio] 25.33 kg/m2 Vandana Woodward CNP Work Phone: [facility] 12-15-2023 08:19-0500 Body weight 64.86 kg Vandana Woodward CNP Work Phone: [facility] 12-15-2023 08:19-0500 Diastolic blood pressure 84 mm[Hg] Vandana Woodward CNP Work Phone: [facility] 12-15-2023 08:19-0500 Heart rate 83 /min Vandana Woodward CNP Work Phone: [facility] 12-15-2023 08:19-0500 SaO2% (BldA) [Mass fraction] 98 % Vandana Woodward [employer] Work Phone: [facility] 12-15-2023 08:19-0500 Systolic blood pressure 133 mm[Hg] Vandana Woodward [employer] Work Phone: [facility] 12-08-2023 13:20-0500 Body height 160 cm Hector Cerna MD Work Phone: [facility] 12-08-2023 13:20-0500 Body mass index (BMI) [Ratio] 25.63 kg/m2 Hector Cerna MD Work Phone: [facility] 12-08-2023 13:20-0500 Body temperature 98.29 [degF] Hector Cerna MD Work Phone: [facility] 12-08-2023 13:20-0500 Body weight 65.64 kg Hector Cerna MD Work Phone: [facility] 09-15-2023 14:48-0400 Body height 160 cm Hector Cerna MD Work Phone: [facility] 09-15-2023 14:48-0400 Body mass index (BMI) [Ratio] 27.46 kg/m2 Hector Cerna MD Work Phone: [facility] 09-15-2023 14:48-0400 Body temperature 98.1 [degF] Hector Cerna MD Work Phone: [facility] 09-15-2023 14:48-0400 Body weight 70.31 kg Hector Cerna MD Work Phone: [facility] 08-19-2023 14:46-0400 Body height 160 cm Hector Cerna MD Work Phone: [facility] 08-19-2023 14:46-0400 Body mass index (BMI) [Ratio] 27.46 kg/m2 Hector Cerna MD Work Phone: [facility] 08-19-2023 14:46-0400 Body temperature 98.29 [degF] Hector Cerna MD Work Phone: [facility] 08-19-2023 14:46-0400 Body weight 70.31 kg Hector Cerna MD Work Phone: [facility] 05-07-2023 15:45-0400 Body temperature 97.88 [degF] No Pcp Required [facility] 05-07-2023 15:45-0400 Diastolic blood pressure 64 mm[Hg] No Pcp Required [facility] 05-07-2023 15:45-0400 Heart rate 62 /min No Pcp Required [facility] 05-07-2023 15:45-0400 Respiratory rate 14 /min No Pcp Required [facility] 05-07-2023 15:45-0400 SaO2% (BldA) [Mass fraction] 100 % No Pcp Required [facility] 05-07-2023 15:45-0400 Systolic blood pressure 110 mm[Hg] No Pcp Required [facility] 04-14-2023 14:32-0400 Body height 162.56 cm No PCP None [facility] Work Phone: 04-14-2023 14:32-0400 Body mass index (BMI) [Ratio] 31.3 kg/m2 No PCP None [facility] Work Phone: 04-14-2023 14:32-0400 Body surface area Derived from formula 1.88 m2 No PCP None [facility] [address] Work Phone: 04-14-2023 14:32-0400 Body weight 82.72 kg No PCP None [facility] [address] Work Phone: 04-14-2023 14:32-0400 Diastolic blood pressure 64 mm[Hg] No PCP None [facility] Work Phone: 04-14-2023 14:32-0400 Systolic blood pressure 108 mm[Hg] No PCP None [facility] [address] Work Phone: 03-31-2023 13:49-0400 Body height 162.56 cm No PCP None [facility] [place] Work Phone: 03-31-2023 13:49-0400 Body mass index (BMI) [Ratio] 31.3 kg/m2 No PCP None [facility] [place] Work Phone: 03-31-2023 13:49-0400 Body surface area Derived from formula 1.88 m2 No PCP None [facility] [place] Work Phone: 03-31-2023 13:49-0400 Body weight 82.73 kg No PCP None [facility] [place] Work Phone: 03-31-2023 13:49-0400 Diastolic blood pressure 72 mm[Hg] No PCP None [facility] [place] Work Phone: 03-31-2023 13:49-0400 Systolic blood pressure 118 mm[Hg] No PCP None [facility] [place] Work Phone: 03-17-2023 14:05-0400 Body height 162.56 cm No PCP None [facility] [place] Work Phone: 03-17-2023 14:05-0400 Body mass index (BMI) [Ratio] 30.55 kg/m2 No PCP None [facility] [place] Work Phone: 03-17-2023 14:05-0400 Body surface area Derived from formula 1.86 m2 No PCP None [facility] [place] Work Phone: 03-17-2023 14:05-0400 Body weight 80.74 kg No PCP None [facility] [place] Work Phone: 03-17-2023 14:05-0400 Diastolic blood pressure 72 mm[Hg] No PCP None [facility] [place] Work Phone: 03-17-2023 14:05-0400 Systolic blood pressure 118 mm[Hg] No PCP None [address] Work Phone: 02-24-2023 13:11-0400 Body height 162.56 cm No [facility] [address] Work Phone: 02-24-2023 13:11-0400 Body mass index (BMI) [Ratio] 29.59 kg/m2 No PCP None [address] Work Phone: 02-24-2023 13:11-0400 Body surface area Derived from formula 1.84 m2 No PCP None [address] Work Phone: 02-24-2023 13:11-0400 Body weight 78.19 kg No PCP None [address] Work Phone: 02-24-2023 13:11-0400 Diastolic blood pressure 68 mm[Hg] No PCP None [address] Work Phone: 02-24-2023 13:11-0400 Systolic blood pressure 118 mm[Hg] No PCP None [address] Work Phone: 01-30-2023 09:10-0500 Body mass index (BMI) [Ratio] 28.15 kg/m2 No PCP None [facility] [address] Work Phone: 01-30-2023 09:10-0500 Body surface area Derived from formula 1.8 m2 No PCP None [facility] [address] Work Phone: 01-30-2023 09:10-0500 Body weight 74.39 kg No PCP None [facility] [address] Work Phone: 01-30-2023 09:10-0500 Diastolic blood pressure 79 mm[Hg] No PCP None [facility] [address] Work Phone: 01-30-2023 09:10-0500 Systolic blood pressure 115 mm[Hg] No PCP None [facility] [address] Work Phone: 01-30-2023 09:10-0500 0 1 No PCP None [facility] [address] Work Phone: Comment on above: [facility] 01-27-2023 13:14-0500 Body height 162.56 cm No PCP None [facility] [address] Work Phone: 01-27-2023 13:14-0500 Body mass index (BMI) [Ratio] 28.88 kg/m2 No PCP None [facility] [address] Work Phone: 01-27-2023 13:14-0500 Body surface area Derived from formula 1.82 m2 No PCP None [facility] [address] Work Phone: 01-27-2023 13:14-0500 Body weight 76.32 kg No PCP None [facility] [address] Work Phone: 01-27-2023 13:14-0500 Diastolic blood pressure 68 mm[Hg] No PCP None [facility] [address] Work Phone: 01-27-2023 13:14-0500 Systolic blood pressure 118 mm[Hg] No PCP None [facility] [address] Work Phone: 12-30-2022 13:31-0500 Body height 162.56 cm No PCP None [facility] [address] Work Phone: 12-30-2022 13:31-0500 Body mass index (BMI) [Ratio] 26.95 kg/m2 No PCP None [facility] [address] Work Phone: 12-30-2022 13:31-0500 Body surface area Derived from formula 1.76 m2 No PCP None [facility] [address] Work Phone: 12-30-2022 13:31-0500 Body weight 71.22 kg No PCP None [facility] [address] Work Phone: 12-30-2022 13:31-0500 Diastolic blood pressure 68 mm[Hg] No PCP None [facility] [address] Work Phone: 12-30-2022 13:31-0500 Systolic blood pressure 116 mm[Hg] No PCP None [facility] [place] Work Phone: 12-23-2022 09:02-0500 Body height 162.56 cm No PCP None [facility] [place] Work Phone: 12-23-2022 09:02-0500 Body mass index (BMI) [Ratio] 26.84 kg/m2 No PCP None Jaqueline Velazco [place] Work Phone: 12-23-2022 09:02-0500 Body surface area Derived from formula 1.76 m2 No PCP None [facility] [place] Work Phone: 12-23-2022 09:02-0500 Body weight 70.93 kg No PCP None [facility] [place] Work Phone: 12-23-2022 09:02-0500 Diastolic blood pressure 62 mm[Hg] No PCP None [facility] [place] Work Phone: 12-23-2022 09:02-0500 Systolic blood pressure 104 mm[Hg] No PCP None [facility] [place] Work Phone: 06-09-2022 10:13-0400 Body temperature 98.71 [degF] Morales Foskey DO Work Phone: [facility] 06-09-2022 10:13-0400 Diastolic blood pressure 67 mm[Hg] Morales Foskey DO Work Phone: [facility] 06-09-2022 10:13-0400 Heart rate 114 /min Morales Foskey DO Work Phone: [facility] 06-09-2022 10:13-0400 Respiratory rate 16 /min Morales Banerjee DO Work Phone: [facility] 06-09-2022 10:13-0400 SaO2% (BldA) [Mass fraction] 96 % Morales Banerjee DO Work Phone: [facility] 06-09-2022 10:13-0400 Systolic blood pressure 114 mm[Hg] Morales Banerjee DO Work Phone: [facility] 03-25-2022 13:48-0400 Body height 160 cm Charles Eric DO Work Phone: [facility] 03-25-2022 13:48-0400 Body mass index (BMI) [Ratio] 26.48 kg/m2 Charles Eric DO Work Phone: [facility] 03-25-2022 13:48-0400 Body temperature 98.4 [degF] Charles Sonnyyasmeen DO Work Phone: [facility] 03-25-2022 13:48-0400 Body weight 67.81 kg Charles Eric DO Work Phone: [facility] 03-25-2022 13:48-0400 Diastolic blood pressure 88 mm[Hg] Charles Dennisyasmeen DO Work Phone: [facility] 03-25-2022 13:48-0400 Heart rate 57 /min Charles Croninkota DO Work Phone: [facility] 03-25-2022 13:48-0400 Respiratory rate 16 /min Charles Eric DO Work Phone: [facility] 03-25-2022 13:48-0400 SaO2% (BldA) [Mass fraction] 99 % Charles Hernesto DO Work Phone: [facility] 03-25-2022 13:48-0400 Systolic blood pressure 135 mm[Hg] Charles Eric DO Work Phone: [facility] 02-18-2022 13:40-0400 Body height 160 cm Charles Eric Work Phone: [facility] 02-18-2022 13:40-0400 Body mass index (BMI) [Ratio] 26.04 kg/m2 Charles Eric DO Work Phone: [facility] 02-18-2022 13:40-0400 Body temperature 98.2 [degF] Charles Eric DO Work Phone: [facility] 02-18-2022 13:40-0400 Body weight 66.68 kg Charles Eric DO Work Phone: [facility] 02-18-2022 13:40-0400 Diastolic blood pressure 84 mm[Hg] Charles Eric DO Work Phone: [facility] 02-18-2022 13:40-0400 Heart rate 64 /min Charles Eric DO Work Phone: [facility] 02-18-2022 13:40-0400 Respiratory rate 16 /min Charles Eric DO Work Phone: [facility] 02-18-2022 13:40-0400 SaO2% (BldA) [Mass fraction] 96 % Charles Eric DO Work Phone: [facility] 02-18-2022 13:40-0400 Systolic blood pressure 128 mm[Hg] Charles Eric DO Work Phone: [facility] 01-19-2022 17:47-0500 Body height 160 cm Morales Foskey DO Work Phone: [facility] 01-19-2022 17:45-0500 Body temperature 99.1 [degF] Morales Foskey DO Work Phone: [facility] 01-19-2022 17:45-0500 Diastolic blood pressure 93 mm[Hg] Morales Foskey DO Work Phone: [facility] 01-19-2022 17:45-0500 Heart rate 90 /min Morales Foskey DO Work Phone: [facility] 01-19-2022 17:45-0500 Respiratory rate 16 /min Morales Foskey DO Work Phone: [facility] 01-19-2022 17:45-0500 SaO2% (BldA) [Mass fraction] 98 % Morales Foskey DO Work Phone: [facility] 01-19-2022 17:45-0500 Systolic blood pressure 145 mm[Hg] Morales Foskey DO Work Phone: [facility] 05-08-2021 07:15-0400 Body temperature 98.91 [degF] Akil Rossi MD Work Phone: [facility] 05-08-2021 07:15-0400 Diastolic blood pressure 86 mm[Hg] Akil Rossi MD Work Phone: [facility] 05-08-2021 07:15-0400 Heart rate 80 /min Akil Rossi MD Work Phone: [facility] 05-08-2021 07:15-0400 Respiratory rate 16 /min Akil Rossi MD Work Phone: [facility] 05-08-2021 07:15-0400 SaO2% (BldA) [Mass fraction] 100 % Akil Rossi MD Work Phone: [facility] 05-08-2021 07:15-0400 Systolic blood pressure 138 mm[Hg] Akil Rossi MD Work Phone: [facility] 05-08-2021 06:45-0400 Body height 160 cm Akil Rossi MD Work Phone: [facility] 05-08-2021 06:45-0400 Body mass index (BMI) [Ratio] 32.59 kg/m2 Akil Rossi MD Work Phone: [facility] 05-08-2021 06:45-0400 Body weight 83.46 kg Akil Rossi MD Work Phone: [facility] 04-25-2021 02:18-0400 Body height 160 cm Akil Rossi MD Work Phone: [facility] 04-25-2021 02:18-0400 Body mass index (BMI) [Ratio] 32.59 kg/m2 Akil Rossi MD Work Phone: [facility] 04-25-2021 02:18-0400 Body temperature 97.39 [degF] Akil Rossi MD Work Phone: [facility] 04-25-2021 02:18-0400 Body weight 83.46 kg Akil Rossi MD Work Phone: [facility] 04-25-2021 02:18-0400 Diastolic blood pressure 79 mm[Hg] Akil Rossi MD Work Phone: [facility] 04-25-2021 02:18-0400 Heart rate 78 /min Akil Rossi MD Work Phone: [facility] 04-25-2021 02:18-0400 Respiratory rate 16 /min Akil Rossi MD Work Phone: [facility] 04-25-2021 02:18-0400 SaO2% (BldA) [Mass fraction] 100 % Akil Rossi MD Work Phone: [facility] 04-25-2021 02:18-0400 Systolic blood pressure 127 mm[Hg] Akil Rossi MD Work Phone: [facility] 03-01-2021 16:48-0400 Height 160 cm [facility] 03-01-2021 16:46-0400 Body Temperature 98.29 [degF] [facility] 03-01-2021 16:46-0400 BP Diastolic 65 mm[Hg] [facility] 03-01-2021 16:46-0400 BP Systolic 116 mm[Hg] [facility] 03-01-2021 16:46-0400 Pulse (Heart Rate) 93 /min [facility] 03-01-2021 16:46-0400 Pulse Oximetry 98 % [facility] 03-01-2021 16:46-0400 Respiratory Rate 16 /min [facility] 02-27-2021 14:06-0400 BMI (Body Mass Index) 30.9 kg/m2 [facility] 02-27-2021 14:06-0400 Body weight 81.65 kg [facility] 02-27-2021 14:06-0400 BP Diastolic 66 mm[Hg] [facility] 02-27-2021 14:06-0400 BP Systolic 114 mm[Hg] [facility] 02-27-2021 14:06-0400 Height 162.6 cm [facility] 02-27-2021 14:06-0400 Pulse (Heart Rate) 92 /min [facility] 01-30-2021 14:49-0500 BMI (Body Mass Index) 28.84 kg/m2 [facility] 01-30-2021 14:49-0500 Body weight 76.2 kg [facility] 01-30-2021 14:49-0500 BP Diastolic 63 mm[Hg] [facility] 01-30-2021 14:49-0500 BP Systolic 109 mm[Hg] [facility] 01-30-2021 14:49-0500 Height 162.6 cm [facility] 01-30-2021 14:49-0500 Pulse (Heart Rate) 87 /min [facility] 01-04-2021 15:39-0500 BMI (Body Mass Index) 27.81 kg/m2 [facility] 01-04-2021 15:39-0500 Body weight 73.48 kg [facility] 01-04-2021 15:39-0500 BP Diastolic 69 mm[Hg] [facility] 01-04-2021 15:39-0500 BP Systolic 101 mm[Hg] [facility] 01-04-2021 15:39-0500 Height 162.6 cm [facility] 11-18-2020 09:270500 Height 160 cm [facility] 11-18-2020 09:0500 Body Temperature 98.91 [degF] [facility] 11-18-2020 [id number]:[id number] BP Diastolic 71 mm[Hg] [facility] 11-18-2020 09:260500 BP Systolic 116 mm[Hg] [facility] 11-18-2020 09:26-0500 Pulse (Heart Rate) 100 /min Morales [facility] 11-18-2020 09:26-0500 Pulse Oximetry 98 % Morales [facility] 11-18-2020 09:26-0500 Respiratory Rate 18 /min Morales [facility] 05-11-2020 07:33-0400 Body Temperature 97.5 [degF] Akil [facility] 05-11-2020 07:33-0400 BP Diastolic 77 mm[Hg] [facility] 05-11-2020 07:33-0400 BP Systolic 116 mm[Hg] [facility] 05-11-2020 07:33-0400 Pulse (Heart Rate) 73 /min [facility] 05-11-2020 07:33-0400 Pulse Oximetry 97 % [facility] 05-11-2020 07:33-0400 Respiratory Rate 16 /min [facility] 03-16-2020 09:21-0400 BMI (Body Mass Index) 28.15 kg/m2 [facility] 03-16-2020 09:21-0400 Body weight 74.39 kg [facility] 03-16-2020 09:21-0400 BP Diastolic 73 mm[Hg] [facility] 03-16-2020 09:21-0400 BP Systolic 106 mm[Hg] [facility] 03-16-2020 [id number] Height 162.6 cm [facility] 03-16-2020 09:21-0400 Pulse (Heart Rate) 85 /min [facility] 02-17-2020 09:28-0400 BMI (Body Mass Index) 27.12 kg/m2 [facility] 02-17-2020 09:28-0400 Body weight 71.67 kg [facility] 02-17-2020 09:28-0400 BP Diastolic 70 mm[Hg] [facility] 02-17-2020 09:28-0400 BP Systolic 97 mm[Hg] [facility] 02-17-2020 09:28-0400 Height 162.6 cm [facility] 02-17-2020 09:28-0400 Pulse (Heart Rate) 87 /min [facility] 01-17-2020 08:57-0500 BMI (Body Mass Index) 26.09 kg/m2 [facility] 01-17-2020 08:57-0500 Body weight 68.95 kg [facility] 01-17-2020 08:57-0500 BP Diastolic 71 mm[Hg] [facility] 01-17-2020 08:57-0500 BP Systolic 105 mm[Hg] [facility] 01-17-2020 08:57-0500 Height 162.6 cm [facility] 12-14-2019 13:36-0500 BMI (Body Mass Index) 25.23 kg/m2 [facility] 12-14-2019 13:36-0500 Body weight 66.68 kg [facility] 12-14-2019 13:36-0500 BP Diastolic 76 mm[Hg] [facility] 12-14-2019 13:36-0500 BP Systolic 111 mm[Hg] [facility] 12-14-2019 13:36-0500 Height 162.6 cm [facility] 11-29-2019 13:16-0500 BMI (Body Mass Index) 24.72 kg/m2 [facility] 11-29-2019 13:16-0500 Body weight 65.32 kg [facility] 11-29-2019 13:16-0500 BP Diastolic 70 mm[Hg] [facility] 11-29-2019 13:16-0500 BP Systolic 122 mm[Hg] [facility] 11-29-2019 13:16-0500 Height 162.6 cm [facility] 11-29-2019 13:16-0500 Pulse (Heart Rate) 70 /min [facility] 10-25-2019 10:55-0500 BMI (Body Mass Index) 24.55 kg/m2 [facility] 10-25-2019 10:55-0500 Body weight 64.86 kg [facility] 10-25-2019 10:55-0500 BP Diastolic 75 mm[Hg] [facility] 10-25-2019 10:55-0500 BP Systolic 110 mm[Hg] [facility] 10-25-2019 10:55-0500 Height 162.6 cm [facility] 10-11-2019 10:03-0500 BMI (Body Mass Index) 24.72 kg/m2 [facility] 10-11-2019 10:03-0500 Body weight 65.32 kg [facility] 10-11-2019 10:03-0500 Height 162.6 cm [facility] 10-11-2019 10:03-0500 Respiratory Rate 18 /min [facility] 06-11-2019 18:18-0400 BP Diastolic 61 mm[Hg] [facility] 06-11-2019 18:18-0400 BP Systolic 103 mm[Hg] [facility] 06-11-2019 18:18-0400 Pulse (Heart Rate) 63 /min [facility] 06-11-2019 18:18-0400 Respiratory Rate 18 /min [facility] 06-11-2019 16:49-0400 Height 162.6 cm [facility] 06-11-2019 16:45-0400 Body Temperature 98.8 [degF] [facility] 06-11-2019 16:45-0400 Pulse Oximetry 99 % [facility] 06-09-2019 05:20-0400 BP Diastolic 51 mm[Hg] [facility] 06-09-2019 05:20-0400 BP Systolic 108 mm[Hg] [facility] 06-09-2019 05:20-0400 Pulse (Heart Rate) 91 /min [facility] 06-09-2019 05:20-0400 Respiratory Rate 18 /min [facility] 06-09-2019 03:56-0400 Pulse Oximetry 98 % [facility] 06-09-2019 03:07-0400 Height 162.6 cm [facility] 06-09-2019 03:06-0400 Body Temperature 98.91 [degF] [facility] 06-08-2019 13:45-0400 BMI (Body Mass Index) 22.14 kg/m2 [facility] [place] 06-08-2019 13:45-0400 Body weight 56.7 kg Wilber [facility] 06-08-2019 13:45-[address] [facility] [place] 06-08-2019 13:44-0400 Body Temperature 98.91 [degF] [facility] [place] 06-08-2019 13:44-0400 BP Diastolic 77 mm[Hg] [facility] [place] 06-08-2019 13:44-0400 BP Systolic 109 mm[Hg] [facility] [place] 06-08-2019 13:44-0400 Pulse (Heart Rate) 97 /min [facility] [place] 06-08-2019 13:44-0400 Pulse Oximetry 99 % [facility] [place] 06-08-2019 13:44-0400 Respiratory Rate 16 /min [facility] [place] 04-23-2019 15:57-0400 BMI (Body Mass Index) 21.8 kg/m2 [facility] 04-23-2019 15:57-0400 Height 162.6 cm [facility] 04-23-2019 15:57-0400 Weight 57.61 kg [facility] 04-23-2019 15:56-0400 Body Temperature 98.71 [degF] [facility] 04-23-2019 15:56-0400 BP Diastolic 78 mm[Hg] [facility] 04-23-2019 15:56-0400 BP Systolic 125 mm[Hg] [facility] 04-23-2019 15:56-0400 Pulse (Heart Rate) 76 /min [facility] 04-23-2019 15:56-0400 Pulse Oximetry 99 % [facility] 04-23-2019 15:56-0400 Respiratory Rate 16 /min [facility] 12-19-2018 04:30-0500 BP Diastolic 72 mm[Hg] Vinayak [facility] Work Phone: 12-19-2018 04:30-0500 BP Systolic 120 mm[Hg] Vinayak Saez [facility] Work Phone: 12-19-2018 04:30-0500 Pulse (Heart Rate) 76 /min Vinayak [facility] Work Phone: 12-19-2018 04:30-0500 Pulse Oximetry 98 % Vinayak [facility] Work Phone: 12-19-2018 04:30-0500 Respiratory Rate 16 /min Vinayak Saez [facility] Work Phone: 12-19-2018 03:41-0500 Body Temperature 98.91 [degF] Vinayak [facility] Work Phone: 11-17-2018 05:00-0500 BP Diastolic 68 mm[Hg] Telemate [facility] Work Phone: 11-17-2018 05:00-0500 BP Systolic 124 mm[Hg] Telemate [facility] Work Phone: 11-17-2018 05:00-0500 Pulse (Heart Rate) 68 /[facility] Work Phone: 11-17-2018 05:00-0500 Respiratory Rate 17 /[facility] Work Phone: 11-17-2018 03:41-0500 BMI (Body Mass Index) 22.14 kg/m2 [facility] Work Phone: 11-17-2018 03:41-0500 Weight 56.7 kg [facility] Work Phone: 11-17-2018 03:39-0500 Body Temperature 97.9 [degF] [facility] Work Phone: 11-17-2018 03:39-0500 Pulse Oximetry 98 % [facility] Work Phone: Encounters Encounter Date Encounter Type Care Provider Facility Start: 05-09-2025 Patient encounter procedure Komalthelma [facility] Start: 05-09-2025 End: 05-09-2025 ambulatory No Primary Care Physician [facility] Work Phone: Start: 05-09-2025 End: 05-09-2025 Patient encounter procedure Komal AG -[facility] Work Phone: Start: 05-04-2025 End: 05-04-2025 Emergency department patient visit Radha Morgan Facility:[facility] Start: 05-03-2025 End: 05-03-2025 ambulatory PHYSICIAN NO [facility] Start: 02-21-2025 End: 02-21-2025 Patient encounter procedure Waqas Duran DC -[facility] Work Phone: Start: 02-21-2025 End: 02-21-2025 ambulatory Radha Morgan Facility:[facility] Start: 01-21-2025 ambulatory No Primary Car e Physician Facility:[facility] Start: 01-13-2025 End: 01-13-[address] Radha Morgan MD -[facility] Work Phone: Start: 01-13-2025 End: 01-13-2025 ambulatory Radhasamina Morgan Facility:[facility] Start: 01-13-2025 End: 01-13-2025 ambulatory Radha Rothbury Facility:[facility] Start: 01-10-2025 ambulatory PHYSICIAN NO [facility] Ambulatory Start: 01-07-2025 End: 04-01-2025 Orders Only Andres August MD Work Phone: [facility] Endocrinology Physicians Start: 01-07-2025 End: 01-07-2025 ambulatory PHYSICIAN NO [facility] Start: 10-26-2024 ambulatory ANDRES AUGUST [facility] Ambulatory Start: 10-22-2024 End: 04-01-2025 Orders Only Andres August MD Work Phone: [facility] Start: 10-04-2024 ambulatory DANIELLE Barrientos ity:[facility] Start: 09-29-2024 End: 09-29-2024 ambulatory DANIELLE GARCIA Facility:[facility] Start: 09-20-2024 End: 09-20-2024 Emergency department patient visit Mitch Marquez Facility:[facility] Start: 05-10-2024 End: 05-10-2024 ambulatory HECTOR CERNA [facility] Start: 05-10-2024 End: 05-10-2024 Office outpatient visit 25 minutes Hector Cerna MD Work Phone: [facility] ENT [place] Comment on above: Primary thyroid canc er (HCC) (Primary Dx); Postoperative hypothyroidism Start: 04-29-2024 End: 04-29-2024 ambulatory [facility] Start: 04-27-2024 End: 04-27-2024 Emergency department patient visit NO ASSIGNED PCP GENERIC PROVIDER [facility] Emergency Medicine Comment on above: Rectal irritation (P rimary Dx); Vaginal discharge Start: 04-19-2024 End: 04-23-2024 [facility] Start: 04-19-2024 End: 04-19-2024 Office outpatient new 45 minutes Hector Cerna MD Work Phone: [facility] Endocrinology Physicians Comment on above: Papillary thyroid ca rcinoma (HCC) (Primary Dx); Postoperative hypothyroidism; Hypocalcemia Start: 02-13-2024 Orders Only Hector middleton MD Work Phone: [facility] Ear, Nose [facility] Throat Physicians Comment on above: Postoperative hypoth yroidism (Primary Dx) Start: 02-10-2024 End: 02-10-2024 Emergency department patient visit Herrera Villegas DO Work Phone: [facility] Emergency Medicine Comment on above: Other sinusitis, uns pecified chronicity (Primary Dx) Start: 02-03-2024 End: 02-03-2024 Office outpatient visit 15 minutes Hector Cerna MD Work Phone: [facility] [place] Comment on above: Postoperative hypoth yroidism (Primary Dx); Primary thyroid cancer (HCC) Start: 02-02-2024 Nicho Schrader MA [facility] Start: 01-13-2024 End: 01-13-2024 Postop follow up visit related to original px Hector Cerna MD Work Phone: [facility] Comment on above: Primary thyroid canc er (HCC) (Primary Dx) Start: 12-31-2023 End: 01-02-2024 Evaluation and management of inpatient Hector Cerna MD Work Phone: [facility] Med Surg Orthopedics Start: 12-15-2023 End: 12-15-2023 Office outpatient new 45 minutes Charles Eric DO Work Phone: [facility] Preadmission Testing Comment on above: Goiter (Primary Dx); Hyperthyroidism; Pre-op examination Start: 12-15-2023 End: 12-15-2023 Preprocedural examination done Charles Eric DO Work Phone: [facility] Start: 12-08-2023 End: 12-08-2023 Office outpatient visit 25 minutes Hector Cerna MD Work Phone: [facility] Comment on above: Goiter (Primary Dx); Hyperthyroidism Start: 11-18-2023 Orders Only Hector middleton MD Work Phone: [facility] Comment on above: Goiter (Primary Dx); Hyperthyroidism Start: 11-07-2023 End: 11-07-2023 Emergency department patient visit NO ASSIGNED PCP GENERIC PROVIDER [facility] Start: 09-19-2023 End: 09-19-2023 Emergency department patient visit MÓNICA BUSTAMANTE [facility] Start: 09-15-2023 End: 09-15-2023 Office outpatient visit 25 minutes Hector Cerna MD Work Phone: [facility] Comment on above: Hyperthyroidism (Haily janelle Dx); Goiter; Carotid artery disorder (HCC) Start: 09-02-2023 End: 09-06-2023 [facility] Start: 08-19-2023 End: 08-19-2023 Office outpatient new 45 minutes Hector Cerna MD Work Phone: [facility] Comment on above: Goiter (Primary Dx); Hyperthyroidism; Carotid artery disorder (HCC) Start: 05-22-2023 Chart Update No PCP None [facility] [address] Work Phone: Start: 05-21-2023 ambulatory Cliff Burnettemona Facility: [id number] Start: 05-18-2023 End: 05-19-[address] Mia Blood Facility:[id number] Start: 05-04-2023 End: 05-07-2023 Evaluation and management of inpatient Cliff Aguirre [facility] 402 Start: 04-16-2023 Chart Update No PCP None [facility] [address] Work Phone: Start: 04-14-2023 Office outpatient vi sit 15 minutes No PCP None [place] [address] [address] Work Phone: Start: 04-14-[address] [id number] Start: 04-07-2023 Chart Update No PCP None [facility] [address] Work Phone: Start: 04-04-2023 Telephone encounter No [facility] Work Phone: Start: 04-03-2023 Chart Update No PCP None [facility] [address] Work Phone: Start: 04-02-2023 Chart Update No PCP None [facility] [address] Work Phone: Start: 03-31-2023 ambulatory Cliff Aguirre Facility: [id number] Start: 03-17-2023 ambulatory Cliff Burnettemona Facility: [id number] Start: 03-17-2023 Office outpatient vi sit 15 minutes No PCP None [facility] [address] Work Phone: Start: 03-10-2023 ambulatory Cliff Burnettemona Facility: [id number] Start: 02-24-2023 Office outpatient vi sit 15 minutes No PCP None [facility] [address] Work Phone: Start: 02-24-2023 ambulatory Cliff Aguirre Facility: [id number] Start: 01-31-2023 Chart Update No PCP None [facility] [address] Work Phone: Start: 01-30-2023 Patient encounter procedure No PCP None [id number] Work Phone: Start: 01-30-2023 Postop follow up vis it related to original px No PCP None [id number] [facility]G Work Phone: Start: 01-30-[address] Davida Chan Facility:[facility] Start: 01-27-2023 Office outpatient vi sit 15 minutes No PCP None [facility] [address] Work Phone: Start: 01-27-2023 ambulatory Cliff Aguirre Facility: [id number] Start: 01-06-[address] [id number] Start: 12-31-2022 Chart Update No PCP None [facility] [address] Work Phone: Start: 12-30-2022 Office outpatient ne w 45 minutes No PCP None [facility] [address] Work Phone: Start: 12-30-2022 ambulatory Cliff Aguirre Facility: [facility] Start: 12-27-2022 Chart Update No PCP None [facility] [address] Work Phone: Start: 12-25-2022 Chart Update No PCP None [facility] [address] Work Phone: Start: 12-24-2022 Chart Update No PCP None [facility] [address] Work Phone: Start: 12-23-2022 Office outpatient ne w 45 minutes No PCP None [facility] [address] Work Phone: Start: 12-23-2022 ambulatory Cliff Aguirre Facility: [id number] Start: 06-09-2022 End: 06-09-2022 Emergency department patient visit Morales Banerjee DO Work Phone: [facility] Emergency Medicine Start: 03-25-2022 End: 03-25-2022 Office outpatient visit 10 minutes Charles Carpioeliana Eric DO Work Phone: [facility] Primary Care Physicians Comment on above: Fatigue, unspecified type; Impacted cerumen of right ear; Normocytic anemia; Abnormal urinalysis Start: 02-18-2022 End: 02-18-2022 Initial preventive medicine new pt age 18-39yrs Charles Eric DO Work Phone: [facility] Care Physicians Comment on above: Encounter for well a dult exam with abnormal findings (Primary Dx); Normocytic anemia; Fatigue, unspecified type; Impacted cerumen of right ear Start: 02-18-2022 End: 02-18-2022 Patient encounter status Charles Eric DO Work Phone: [facility] Primary Care Physicians Start: 01-19-2022 End: 01-19-2022 Emergency department patient visit Morales Banerjee DO Work Phone: [facility] Emergency Medicine Start: 05-14-2021 End: 05-14-2021 Evaluation and management of inpatient Rebecca Sanchez PHOTO EQUIPMENT TECHNICIAN Work Phone: [facility] [place] [facility] Start: 05-08-2021 End: 05-08-2021 Subsequent hospital visit by physician Akil Rossi MD Work Phone: [facility] [place] [facility] Delivery Start: 05-03-2021 End: 05-03-2021 Subsequent hospital visit by physician Akil Rossi MD Work Phone: [facility] [place] [facility] [place] Start: 04-25-2021 End: 04-25-2021 Subsequent hospital visit by physician Akil Rossi MD Work Phone: [facility] [place] [facility] [place] Start: 03-01-2021 End: 03-01-2021 Emergency department patient visit Dino Shen Work Phone: [facility] Emergency Medicine Start: 02-27-2021 End: 02-27-2021 Patient encounter procedure Akil Rossi Work Phone: [facility] Physicians Obstetrics and Gynecology Comment on above: GA: 27w0d Start: 01-30-2021 End: 01-30-2021 Patient encounter procedure Akil Rossi Work Phone: [facility] Physicians Obstetrics and Gynecology Comment on above: GA: 23w0d Start: 01-04-2021 End: 01-04-2021 Office outpatient visit 25 minutes Akil Rossi Work Phone: [facility] Physicians Obstetrics and Gynecology Comment on above: GA: 19w2d Start: 12-25-2020 End: 12-25-2020 [facility] Comment on above: GA: 17w6d Start: 12-21-2020 End: 12-21-2020 Refill Akil Rossi Work Phone: [facility] Physicians Obstetrics and Gynecology Comment on above: with fewer than 8 completed weeks gestation (Primary Dx); Urgency of urination ; Encounter for supervision of normal first in first trimester; Contact with and (suspected) exposure to human immunodeficiency virus (hiv) ; Encounter for screening for other viral diseases Start: 11-18-2020 End: 11-18-2020 Emergency department patient visit Morales Banerjee Work Phone: [facility] Medicine Start: 05-09-2020 End: 05-11-2020 Evaluation and management of inpatient Akil Rossi Work Phone: [facility] [place] Obstetrics Comment on above: Normal vaginal deliv sury (Primary Dx); 37 weeks gestation of ; Single live ; Pain related to vaginal delivery Start: 03-16-2020 End: 03-16-2020 Patient encounter procedure Akil Rossi Work Phone: [facility] Physicians Obstetrics and Gynecology Comment on above: GA: 29w2d Start: 03-06-2020 End: 03-06-2020 Patient encounter procedure Tracy Popesurjit [facility] Physicians Obstetrics and Gynecology Comment on above: GA: 27w6d Start: 02-17-2020 End: 02-17-2020 Patient encounter procedure Akil Rossi Work Phone: [facility] Physicians Obstetrics and Gynecology Comment on above: GA: 25w2d Start: 01-17-2020 End: 01-17-2020 Patient encounter procedure Akil Rossi Work Phone: [facility] Physicians Obstetrics and Gynecology Comment on above: GA: 20w6d Start: 01-03-2020 End: 01-03-2020 Patient encounter procedure Tracy Jung [facility] Physicians Obstetrics and Gynecology Comment on above: GA: 18w6d Start: 12-14-2019 End: 12-14-2019 Patient encounter procedure Akil Rossi Work Phone: [facility] Physicians Obstetrics and Gynecology Comment on above: GA: 16w0d Start: 11-29-2019 End: 11-29-2019 Patient encounter procedure Akil Rossi Work Phone: [facility] Physicians Obstetrics and Gynecology Comment on above: GA: 13w6d Start: 10-25-2019 End: 10-25-2019 Patient encounter procedure Aikl Rossi Work Phone: [facility] Physicians Obstetrics and Gynecology Comment on above: GA: 8w6d Start: 10-11-2019 End: 10-12-2019 Patient encounter procedure Rebecca Martinez [facility] Physicians Obstetrics and Gynecology Comment on above: GA: 6w6d Start: 06-14-2019 End: 06-14-2019 Telephone encounter Becca Upton Work Phone: [facility] Internal Med [facility] [place] Comment on above: Appointment Start: 06-11-2019 End: 06-11-2019 Emergency department patient visit Hector Fernandez Work Phone: [facility] Emergency Medicine Start: 06-09-2019 End: 06-09-2019 Emergency department patient visit Vinayak Saez Work Phone: [facility] Emergency Medicine Start: 06-08-2019 End: 06-08-2019 Emergency department patient visit Wilber Hardy Work Phone: [facility] Emergency Medicine Start: 04-23-2019 End: 04-23-2019 Emergency department patient visit Morales Banerjee Work Phone: [facility] Emergency Medicine Start: 12-19-2018 End: 12-19-2018 Emergency department patient visit Vinayak Saez Work Phone: [facility] Medicine Start: 11-17-2018 End: 11-17-2018 Emergency department patient visit Em Nolen Work Phone: [facility] Medicine Start: 12-11-2017 Ambulatory HECTOR Elle ALBERTO [facility] Procedures Date Procedure Procedure Detail Performing Clinician Start: 05-04-2025 X-ray of chest, KELI hurtado nd lateral views No Primary Care Physician Start: 01-13-2025 Measurement of renal function No Primary Care Physician Comment on above: GFR Calc Start: 01-07-2025 Assay of thyroid sti mulating hormone tsh Andres August MD Work Phone: Start: 10-22-2024 Assay of thyroglobulin Andres August MD Work Phone: Start: 05-10-2024 Follow-up visit Follow-up HECTOR CERNA Start: 04-27-2024 Iadna chlamydia trac homatis amplified probe tq Anastasiia Vasques PA-C Work Phone: Start: 04-27-2024 Urnls dip stick/tabl et rgnt auto w/o microscopy Anastasiia Vasques PA-C Work Phone: Start: 01-02-2024 Calcium total Hector Barrett Cerna MD Work Phone: Start: 01-02-2024 Calcium total Hector Barrett Cerna MD Work Phone: Start: 01-01-2024 Calcium total Hector Barrett Cerna MD Work Phone: Start: 01-01-2024 End: 01-02-2024 Calcium total Hector Titi Cerna MD Work Phone: Start: 01-01-2024 Blood typing serologic abo Henrry Soto MD Work Phone: Start: 01-01-2024 Blood group typing Sina cr Soto MD Work Phone: Start: 12-31-2023 End: 01-01-2024 THYROIDECTOMY Hector Cerna MD Work Phone: Start: 12-31-2023 End: 01-01-2024 Calcium total Hector Cerna MD Work Phone: Start: 12-31-2023 Electrocardiogram Hector Cerna MD Work Phone: Start: 12-31-2023 Calcium total Hector Cerna MD Work Phone: Start: 12-31-2023 Calcium total Hector Cerna MD Work Phone: Start: 12-31-2023 Level v surg patholo gy gross&microscopic exam Hector Cerna MD Work Phone: Start: 12-31-2023 End: 12-31-2023 THYROIDECTOMY Hector Cerna MD Work Phone: Start: 12-31-2023 Ecg routine ecg w/le ast 12 lds trcg only w/o i&r Yasir Yu MD Work Phone: Start: 12-31-2023 detection examination Hector Cerna MD Work Phone: Start: 12-15-2023 Basic metabolic pane l calcium total Hector Cerna MD Work Phone: Start: 09-19-2023 DISCHARGE PATIENT NO GE NERIC PROVIDER Start: 09-19-2023 Bacteria identified in Urine by Culture NO GENERIC PROVIDER Start: 09-19-2023 EXTRA URINE PUENTE TUBE N O GENERIC PROVIDER Start: 09-19-2023 HCG, URINE, QUALITATIVE NO GENERIC PROVIDER Start: 09-19-2023 MICROSCOPIC ONLY, URINE NO GENERIC PROVIDER Start: 09-19-2023 URINALYSIS WITH REFL EX MICROSCOPIC AND CULTURE NO GENERIC PROVIDER Start: 09-19-2023 C. TRACHOMATIS + N. GONORRHOEAE, AMPLIFIED NO GENERIC PROVIDER Start: 09-19-2023 NURSING COMMUNICATION N O GENERIC PROVIDER Start: 05-18-[address] Nimco Aguirre Comment on above: Performed By: #### T +S #### [facility] [address] [id number] Start: 05-05-[address] Nimco Aguirre Comment on above: Performed By: #### S YPHR #### [facility] [address] [place] [address] Start: 12-31-2022 Antibody screen Cliff manning Comment on above: Performed By: #### T +S #### [facility] [address] [place] [address] Start: 12-30-2022 Microscopic observat ion [Identifier] in Cervix by Cyto stain Herrera Villegas DO Work Phone: Start: 02-18-2022 Adult depression scr eening assessment Charles Hernesto DO Work Phone: Start: 01-19-2022 Gonadotropin chorion ic qualitative Morales Banerjee DO Work Phone: Start: 01-19-2022 Urinalysis microscopic only Morales A Lavonne DO Work Phone: Start: 01-19-2022 Urinalysis, reagent strip without microscopy Morales Banerjee DO Work Phone: Start: 04-25-2021 Blood count complete automated Akil Rossi MD Work Phone: Start: 04-25-2021 Blood typing serologic abo Akil Rossi MD Work Phone: Start: 04-25-2021 Urnls dip stick/tabl et reagent auto microscopy Akil Rossi MD Work Phone: Start: 03-01-2021 Urinalysis microscopic only Dino Shen Work Phone: Start: 04-01-2021 Urinalysis, reagent strip without microscopy Dino Shen Work Phone: Start: 01-04-2021 Chlamydia trachomati s rRNA assay Akil Rossi Work Phone: Start: 01-04-2021 Iadna trichomonas va ginalis amplified probe tech Akil Rossi Work Phone: Start: 01-04-2021 Neisseria gonorrhoea e nucleic acid detection Akil Rossi Work Phone: Start: 01-04-2021 Microscopic observat ion [Identifier] in Cervix by Cyto stain Akil Rossi Start: 12-25-2020 Us preg uterus after 1st trimest 12/01 gestation Akil Rossi Work Phone: Start: 05-10-2020 Complete blood count with white cell differential, automated Akil Rossi Work Phone: Start: 05-10-2020 Complete blood count with white cell differential, manual Akil Rossi Work Phone: Start: 05-09-2020 COVID-19, MOLECULAR Bra rajniey Henrry Rossi Work Phone: Start: 05-09-2020 Blood type and Indir ect antibody screen panel - Blood Akil Rossi Work Phone: Start: 05-09-2020 Complete blood count (hemogram) panel - Blood by Automated count Akil Rossi Work Phone: Start: 05-09-2020 Treponema pallidum I gG Ab [Presence] in Serum Akil Rossi Work Phone: Start: 03-06-2020 Us preg uterus real time f/u trnsabdl per fetus Akil Rossi Work Phone: Start: 01-03-2020 Us preg uterus after 1st trimest 12/01 gestation Akil Rossi Work Phone: Start: 10-25-2019 Chlamydia trachomati s rRNA assay Akil Rossi Work Phone: Start: 10-25-2019 Iadna trichomonas va ginalis amplified probe tech Akil Rossi Work Phone: Start: 10-25-2019 Neisseria gonorrhoea e nucleic acid detection Akil Rossi Work Phone: Start: 10-25-2019 Microscopic observat ion [Identifier] in Cervix by Cyto stain Akil Rossi Start: 10-11-2019 Us preg uterus real time w/image dcmtn transvag Akil Sales Flo Work Phone: Start: 06-11-2019 Choriogonadotropin ( test) [Presence] in Urine Hector Jim Work Phone: Start: 06-11-2019 Culture bacterial qu anttative colony count urine Hector Jim Work Phone: Start: 06-11-2019 Urinalysis microscopic only Hector Jim Work Phone: Start: 06-11-2019 URINALYSIS, MACRO Hector Jim Work Phone: Start: 06-11-2019 Albumin serum plasma /whole blood Hector Jim Work Phone: Start: 06-11-2019 Assay of lipase Hector Sc ranulfo Work Phone: Start: 06-11-2019 CBC, EDIF, PLATELET Rivka c Jim Work Phone: Start: 06-11-2019 Creatinine blood Hector S richmondmarybethkota Work Phone: Start: 06-09-2019 CT of chest Vinayak lovett Work Phone: Start: 06-09-2019 CT of abdomen and pelvis Vinayak Saez Work Phone: Start: 06-09-2019 Diagnostic radiograp hy of chest, combined PA and lateral Vinayak Saez Work Phone: Start: 06-09-2019 Assay of lipase Vinayak Saez Work Phone: Start: 06-09-2019 CBC, EDIF, PLATELET Williams Saez Work Phone: Start: 06-09-2019 Comprehensive metabolic panel Vinayak Saez Work Phone: Start: 06-09-2019 Fibrin dgradj produc ts d-dimer quantitative Vinayak Saez Work Phone: Start: 06-08-2019 Choriogonadotropin ( test) [Presence] in Urine Matthew Sownott Work Phone: Start: 06-08-2019 Urinalysis microscopic only Matthew Peters Alexia Work Phone: Start: 06-08-2019 URINALYSIS, MACRO Josue Peters Alexia Work Phone: Start: 04-23-2019 Choriogonadotropin ( test) [Presence] in Urine Morales A Foskey Work Phone: Start: 04-23-2019 Urinalysis microscopic only Morales A Foskey Work Phone: Start: 04-23-2019 URINALYSIS, MACRO Morales A Foskey Work Phone: Start: 12-19-2018 End: 12-19-2018 Iadna chlamydia trachomatis amplified probe tq Vinayak Saez Work Phone: Start: 11-17-2018 End: 11-17-2018 Choriogonadotropin ( test) [Presence] in Urine Telemate A Sokari Work Phone: Start: 11-17-2018 End: 11-17-2018 Urinalysis microscopic only Telemate A S okari Work Phone: Start: 11-17-2018 End: 11-17-2018 URINALYSIS, MACRO Telemate A Sokari Work Phone: No history of surgery No PCP None Plan of Treatment Date Care Activity Detail Author Start: 2042 Zoster Vaccines (1 of 2) Zoster Vaccines (1 of 2) [facility] Start: 02-24-2033 DTaP/Tdap/Td Vaccines (6 - Td or Tdap) DTaP/Tdap/Td Vaccines (6 - Td or Tdap) [facility] Start: 02-24-2033 Tetanus vaccination Tetanus: Every 10yrs [facility] Start: 06-09-2032 DTaP/Tdap/Td Vaccines (5 - Td or Tdap) DTaP/Tdap/Td Vaccines (5 - Td or Tdap) [facility] Start: 06-09-2032 Tetanus vaccination TETANUS [facility] Start: 03-27-2031 Tetanus vaccination Tetanus: Every 10yrs [facility] Start: 03-16-2030 Tetanus vaccination Tetanus: Every 10yrs [facility] Start: 11-30-2026 Tetanus vaccination [facility] Start: 12-30-2025 Screening for malignant neoplasm of cervix [facility] Start: 08-01-2025 Influenza vaccination Influenza Vaccine (Season Ended) [facility] Start: 05-09-2025 Thyroid stimulating hormone measurement [facility] Start: 05-04-2025 [facility] Start: 04-29-2025 End: 04-29-2025 Patient encounter procedure 04/29/2025 10:30 AM EDT Office Visit [facility] End[facility]ology Phys[facility] [address] [place] [address] [place] [id number] Andres August MD [address] [place] [id number] [facility] Start: 01-13-2025 Patient referral [facility] Work Phone: Start: 10-18-2024 End: 10-18-2024 Patient encounter procedure 10/18/2024 10:45 AM EST Office Visit [facility] [address] [place] [address] [place] [phone] Andres August MD [address] [place] [id number] [facility] Start: 08-01-2024 COVID-19 Vaccine ( season) COVID-19 Vaccine ( season) [facility] Start: 08-01-2024 Influenza vaccination Influenza Vaccine (Season Ended) [facility] Start: 05-10-2024 End: 05-10-2024 Patient encounter procedure 05/10/2024 3:30 PM EDT Office Visit [facility] [address] [place] [address] Hector Cerna MD [address] [address] [facility] Start: 04-29-2024 End: 04-29-2024 Patient encounter procedure 04/29/2024 1:30 PM EDT Appointment [facility] Ultrasound [address] [place] [phone] Andres August MD [address] [place] [address] [facility] Ultrasound Start: 04-19-2024 End: 04-19-2024 Patient encounter procedure 04/19/2024 9:00 AM EDT Office Visit [facility] End[facility] Physicians [address] [facility] [place] [address] Hector Cerna MD [address] [address] Andres August MD 335 [place] [address] [facility] Endocrinology Physicians Start: 04-12-2024 End: 04-12-2024 Patient encounter procedure 04/12/2024 2:45 PM EDT Office Visit [facility] [address] [place] [address] Hector Cerna MD [address] [address] [facility] Start: 03-08-2024 End: 03-08-2024 Patient encounter procedure 03/08/2024 2:00 PM EDT Office Visit [facility] Endocrinology Physicians 335 [facility] [place] [address] Hector Cerna MD [facility] Elsy Kwok [address] [place] [phone] Andres August MD 335 [place] [address] [facility] Endocrinology Physicians Start: 02-03-2024 End: 02-03-2024 Patient encounter procedure 02/03/2024 11:00 AM EST Office Visit [facility] [address] [place] [phone] Hector Cerna MD [facility] Elsy Kwok [address] [place] [address] [facility] Start: 01-06-2024 End: 01-06-2024 Follow-up encounter 01/06/2024 2:30 PM EST Follow-Up [facility] [address] [place] [address] Hector Cerna MD [address] [place], [place] [address]sp[address] [address] [facility] Start: 01-04-2024 Screening for malignant neoplasm of cervix [facility] Start: 12-25-2023 End: 12-25-2023 Follow-up encounter 12/25/2023 2:30 PM EST Follow-Up [facility] Ear, Nose and Throat Physicians [facility] Elsy [employer] [facility] [place] [phone] Mckayla Vasquez CNP [address] [place], [place] [address] [address] [address] [facility] Nose [facility] Th[facility]at [facility]icians Start: 12-17-2023 End: 12-17-2023 Admission to same day surgery center 12/17/2023 7:15 AM EST - 12/17/2023 10:19 AM EST Surgery [facility] Periop [address] [place] [address] Hector Cerna MD 335 [address]sy Kwok [address] [place] [address] Total thyroidectomy, possible neck dissection [facility] Peri Comment on above: Total thyroidectomy, possible neck disse ction Start: 12-17-2023 Subsequent hospital visit by physician 12/17/2023 7:15 AM EST Hospital Encounter [facility] Peri [address] [place] [address] Hector Cerna MD [address] [address] [facility] Periop Start: 12-17-2023 End: 12-17-2023 THYROIDECTOMY THYROIDECTOMY Goiter Hyperthyroidism 12/17/2023 7:15 AM EST [facility] Start: 12-11-2023 End: 12-11-2023 Patient encounter procedure 12/11/2023 8:00 AM EST Office Visit [facility] Preadmission Testing [address] [place] [address] [facility] Preadmission Testing Start: 12-02-2023 End: 12-02-2023 Patient encounter procedure 12/02/2023 1:00 PM EST Office Visit [facility] [address] [place] [address] Hector Cerna MD [address] [address] [facility] Start: 11-18-2023 End: 11-18-2024 Fine Needle Aspiration [facility] Work Phone: Comment on above: Expected: 11/18/2023, Expires: Start: 10-06-2023 End: 10-06-2023 Patient encounter procedure 10/06/2023 2:30 PM EST Procedure visit [facility] [address] [place] [address] Hector Cerna MD [address] [place] [address] [facility] Start: 09-25-2023 End: 09-25-2023 Patient encounter procedure 09/25/2023 11:30 AM EDT Office Visit [facility] Primary Care Physicians [address] [place] [address] Ildefonso Doty, [address] [place] [address] [facility] Primary Care Physicians Start: 09-15-2023 End: 09-15-2023 Patient encounter procedure 09/15/2023 2:30 PM EDT Office Visit [facility] [address] [place] [address] Hector Cerna MD [address] [place] [address] [facility] Start: 08-19-2023 End: 08-19-2024 Ultrasonography of head and neck US Soft Tissue Neck Imaging Routine Goiter Expected: 08/19/2023, Expires: 08/19/2024 [facility] Comment on above: Expected: 08/19/2023, Expires: Start: 08-01-2023 COVID-19 Vaccine ( season) COVID-19 Vaccine ( season) [facility] Start: 08-01-2023 Influenza vaccination [facility] Start: 05-05-2023 EPVOB, Provider: Cliff Aguirre, Status: Pen, Time: 2:15 PM EPVOB, Provider: Cliff Aguirre, Status: Pen, Time: 2:15 PM [place] [address] [place] Work Phone: Start: 05-05-2023 End: 05-05-2024 [facility] Comment on above: administer if patient screen is non- imm une or equivocal After and PRN Conditional order. C onsult Provider prior to administration. Conditional order. 6 00 milliunits/min x 30 mins., then 60 milliunits/min for the remainder of the bag. Consult Provider prior to administration. Start: 05-05-2023 End: 05-04-2024 [facility] Comment on above: Consult provider prior to administration . Push over more than 2 minutes. Systolic greater than or equal to 160 OR Diastolic greater than or equal to 110. Contraindications: active asthma, heart disease, heart failure, maternal bradycardia < 60. Consult provider haily or to administration. Push over more than 2 minutes. Systolic greater than or equal to 160 OR Diastolic greater than or equal to 110. Contraindication: coronary artery disease (CAD); Caution in suspected CAD. Consult provider haily or to administration. Systolic greater than or equal to 160 OR Diastolic greater than or equal to 110. Capsules administered orally and swallowed whole; Do not puncture or crush; Do not administer sublingually. Administer in the OR . Consult Provider haily or to administration. Conditional order. C onsult Provider prior to administration. Conditional order. 6 00 milliunits/min x 30 mins., then 60 milliunits/min for the remainder of the bag. Consult Provider prior to administration. Max dose of 16mg / 2 4 hours may repeat q 5 minx2 Start: 04-14-2023 EPVOB, Provider: Cliff Aguirre, Status: Pen, Time: 2:45 PM EPVOB, Provider: Cliff Aguirre, Status: Pen, Time: 2:45 PM [facility] [employer] Work Phone: Start: 03-31-2023 EPVOB, Provider: Cliff Aguirre, Status: Pen, Time: 1:30 PM EPVOB, Provider: Cliff Aguirre, Status: Ori, Time: 1:30 PM [employer] Work Phone: Start: 03-27-2023 End: 03-27-2023 Patient encounter procedure 03/27/2023 Office Visit Primary Care Charles Eric, [address] [place] [address] [facility] Care Physicians Start: 03-17-2023 EPVOB, Provider: Cliff Aguirre, Status: Pen, Time: 1:45 PM EPVOB, Provider: Cliff Aguirre, Status: Pen, Time: 1:45 PM [id number] [facility] Work Phone: Start: 03-10-2023 EPVOB, Provider: Cliff Aguirre, Status: Pen, Time: 1:00 PM EPVOB, Provider: Cliff Aguirre, Status: Pen, Time: 1:00 PM [employer] [place] [employer] Work Phone: Start: 02-24-2023 ULTRASDFUV, Provider: NATASHA WoodruffMGOBGYN, Status: Pen, Time: 2:45 PM ULTRASDFUV, Provider: NATASHA PERKINS 1MGOBGYN, Status: Pen, Time: 2:45 PM [id number] 1500 Work Phone: Start: 02-24-2023 EPVOB, Provider: Cliff Aguirre, Status: Pen, Time: 1:00 PM EPVOB, Provider: Cliff Aguirre, Status: Pen, Time: 1:00 PM [facility] [employer] Work Phone: Start: 02-18-2023 Depression screening using PHQ-9 (Patient Health Questionnaire 9) score [facility] Start: 02-18-2023 History and physical examination, annual for health maintenance Wellness Visit [facility] Start: 01-27-2023 EPVOB, Provider: Cliff Aguirre, Status: Pen, Time: 1:00 PM EPVOB, Provider: Cliff Aguirre, Status: Pen, Time: 1:00 PM [employer] [address] [place] Work Phone: Start: 12-30-2022 EPVOB, Provider: Cliff Aguirre, Status: Pen, Time: 1:00 PM EPVOB, Provider: Aguirre,Cliff, Status: Pen, Time: 1:[address] Work Phone: Start: 10-25-2022 Screening for malignant neoplasm of cervix PAP SMEAR [facility] Start: 08-01-2022 Influenza vaccination [facility] Start: 2022 Screening for malignant neoplasm of cervix HPV/Cotest [facility] Start: 03-18-2022 End: 03-18-2022 Patient encounter procedure 03/18/2022 Office Visit Primary Care Charles Eric, [address] [facility] [address] [place] [address] [facility] Primary Care Physicians Start: 02-18-2022 End: 02-18-2023 Complete blood count with white cell differential, manual [facility] Comment on above: Expected: 02/18/2022 (Approximate), Expi res: 02/18/2023 Start: 02-18-2022 End: 02-18-2023 Comprehensive metabolic 2000 panel - Serum or Plasma [facility] Comment on above: Expected: 02/18/2022 (Approximate), Expi res: 02/18/2023 Start: 02-18-2022 End: 02-18-2023 Lipid 1996 panel - Serum or Plasma [facility] Work Phone: Comment on above: Expected: 02/18/2022 (Approximate), Expi res: 02/18/2023 Start: 02-18-2022 End: 02-18-2023 Thyrotropin [Units/volume] in Serum or Plasma [facility] Comment on above: Expected: 02/18/2022 (Approximate), Expi res: 02/18/2023 Start: 02-18-2022 End: 02-18-2023 Urinalysis with reflex to microscopy and culture [facility] Comment on above: Expected: 02/18/2022 (Approximate), Expi res: 02/18/2023 Start: 08-01-2021 Influenza vaccination [facility] Start: 06-11-2021 End: 06-11-2021 ambulatory 06/11/2021 Visit Obstetrics and Gynecology Akil Rossi MD [facility] [place] [address] [facility] Physicians Obstetrics and Gynecology Start: 05-29-2021 End: 05-29-2021 Routine 05/29/2021 Routine Obstetrics and Gynecology Akil Rossi MD [address] [place] [address] [facility] Physicians Obstetrics and Gynecology Start: 05-22-2021 End: 05-22-2021 Routine 05/22/2021 Routine Obstetrics and Gynecology Akil Rossi MD [address] [place] [address] [facility] Physicians Obstetrics and Gynecology Start: 05-15-2021 End: 05-15-2021 Routine 05/15/2021 Routine Obstetrics and Gynecology Akil Rossi MD [address] [place] [address] [facility] Physicians Obstetrics and Gynecology Start: 05-08-2021 End: 05-08-2021 Routine 05/08/2021 Routine Obstetrics and Gynecology Akil Rossi MD [address] [place] [address] [phone] [facility] Physicians Obstetrics and Gynecology Start: 04-24-2021 End: 04-24-2021 Routine 04/24/2021 Routine Obstetrics and Gynecology Akil Rossi MD [address] [place] [address] [facility] Physicians Obstetrics and Gynecology Start: 03-27-2021 End: 03-27-2021 Routine 03/27/2021 Routine Obstetrics and Gynecology Akil Rossi MD [address] [place] [address] [facility] Physicians Obstetrics and Gynecology Start: 02-27-2021 End: 02-27-2021 Routine 02/27/2021 Routine Obstetrics and Gynecology Akil Rossi MD [facility] [place] [address] [facility] Physicians Obstetrics and Gynecology Start: 02-27-2021 End: 03-12-2021 T. pallidum IgG Ql (S) Syphilis Antibody Lab Routine Encounter for screening Expected: 02/27/2021, Expires: 03/12/2021 [facility] Comment on above: Expected: 02/27/2021, Expires: Start: 01-01-2021 End: 01-01-2021 Routine 01/01/2021 Routine Obstetrics and Gynecology Akil Rossi MD [address] [place] [address] [phone] [facility] Physicians Obstetrics and Gynecology Start: 12-25-2020 End: 12-25-2020 Routine 12/25/2020 Routine Obstetrics and Gynecology [facility] Physicians Obstetrics and Gynecology Start: 12-21-2020 End: 01-21-2021 Bacteria identified Aer cx Nom (Unsp spec) Urine Aerobic Culture Microbiology Routine Urgency of urination with fewer than 8 completed weeks gestation Expected: 12/21/2020, Expires: 01/21/2021 [facility] Comment on above: Expected: 12/21/2020, Expires: 1 Start: 12-21-2020 End: 01-21-2021 OBSTETRIC PANEL Obstetric Panel Lab Routine Encounter for screening for other viral diseases with fewer than 8 completed weeks gestation Encounter for supervision of normal first in first trimester Expected: 12/21/2020, Expires: 01/21/2021 [facility] Comment on above: Expected: 12/21/2020, Expires: 1 Start: 08-01-2020 Influenza vaccination INFLUENZA VACCINE (#1) [facility] Start: 08-01-2020 Influenza vaccination given [facility] Start: 06-08-2020 End: 06-08-2020 Visit 06/08/2020 Visit Obstetrics and Gynecology Akil Rossi MD [address] [place] [address] [phone] [facility] Physicians Obstetrics and Gynecology Start: 05-04-2020 End: 05-04-2020 Routine 05/04/2020 Routine Obstetrics and Gynecology Akil Rossi MD [facility] [place] [address] [phone] [facility] Physicians Obstetrics and Gynecology Start: 03-16-2020 End: 03-16-2020 Routine 03/16/2020 Routine Obstetrics and Gynecology Akil Rossi MD [address] [place] [address] [phone] [facility] Physicians Obstetrics and Gynecology Start: 03-06-2020 End: 03-06-2020 Routine 03/06/2020 Routine Obstetrics and Gynecology [facility] Physicians Obstetrics and Gynecology Start: 02-17-2020 End: 03-01-2020 T. pallidum IgG Ql (S) Syphilis Antibody Lab Routine Encounter for screening Expected: 02/17/2020, Expires: 03/01/2020 [facility] Comment on above: Expected: 02/17/2020, Expires: 0 Start: 02-17-2020 End: 03-01-2020 TSH Qn TSH with Reflex Free T4 Lab Routine Encounter for screening Expected: 02/17/2020, Expires: 03/01/2020 [facility] Comment on above: Expected: 02/17/2020, Expires: 0 Start: 02-17-2020 End: 02-17-2020 Routine 02/17/2020 Routine Obstetrics and Gynecology Akil Rossi MD [facility] [place] [address] [phone] [facility] Physicians Obstetrics and Gynecology Start: 01-13-2020 End: 01-13-2020 Routine 01/13/2020 Routine Obstetrics and Gynecology Akil Rossi MD [facility] [place] [address] [phone] [facility] Physicians Obstetrics and Gynecology Start: 01-03-2020 End: 01-03-2020 Routine 01/03/2020 Routine Obstetrics and Gynecology [facility] Physicians Obstetrics and Gynecology Start: 12-19-2019 Screening for Chlamydia trachomatis CHLAMYDIA SCREEN [facility] Start: 12-14-2019 End: 01-13-2020 Down's maternal screening Maternal Downs Screen AFP4 Lab Routine Encounter for screening Expected: 12/14/2019, Expires: 01/13/2020 [facility] Comment on above: Expected: 12/14/2019, Expires: 0 Start: 12-14-2019 End: 12-14-2019 Routine 12/14/2019 Routine Obstetrics and Gynecology Akil Rossi MD [address] [place] [address] [phone] [facility] Physicians Obstetrics and Gynecology Start: 11-18-2019 End: 11-18-2019 Routine 11/18/2019 Routine Obstetrics and Gynecology Akil Rossi MD [facility] [place] [address] [phone] [facility] Physicians Obstetrics and Gynecology Start: 10-25-2019 End: 10-25-2019 Initial 10/25/2019 Initial Obstetrics and Gynecology Akil Rossi MD [address] [place] [address] [phone] [facility] Physicians Obstetrics and Gynecology Start: 08-01-2019 Influenza vaccination [facility] Start: 08-01-2019 Influenza vaccination given SEQUENTIAL INFLUENZA VACCINE (#1) [facility] Start: 12-12-2018 Screening for malignant neoplasm of cervix [facility] Start: 08-01-2018 Influenza vaccination INFLUENZA VACCINE (#1) [facility] Work Phone: Start: 03-01-2014 HPV Vaccines (2 - 3-dose series) HPV Vaccines (2 - 3-dose series) [facility] Start: 2013 Screening for malignant neoplasm of cervix HPV/Cotest [facility] Start: 2011 Hepatitis B Vaccines (1 of 3 - 19+ 3-dose series) Hepatitis B Vaccines (1 of 3 - 19+ 3-dose series) [facility] Start: 2011 Third diphtheria, tetanus and acellular pertussis (DTaP) vaccination TDAP (ADULT) [facility] Start: 2010 Hepatitis C antibody, confirmatory test Hepatitis C Screening [facility] Start: 2010 Hepatitis C screening Hepatitis C Screening [facility] Start: 2010 Tetanus vaccination TETANUS [facility] Start: 11-28-2009 MMR Vaccines (1 of 1 - Standard series) MMR Vaccines (1 of 1 - Standard series) [facility] Start: 11-28-2009 Varicella vaccination [facility] Start: 2008 COVID-19 Vaccine (1 of 2) COVID-19 Vaccine (1 of 2) [facility] Start: 2008 COVID-19 Vaccine (1) COVID-19 Vaccine (1) [facility] Start: 2008 Screening for Chlamydia trachomatis CHLAMYDIA SCREEN [facility] Work Phone: Start: 2007 HIV screening HIV SCREENING DISCUSSION [facility] Start: 2007 Vaccination for human papillomavirus HPV VACCINE ADOL (1 - Female 3-dose series) [facility] Start: 2005 HIV screening HIV SCREENING DISCUSSION [facility] Work Phone: Start: 2004 Adolescent depression screening assessment Depression Screening (PHQ9) [facility] Start: 2004 COVID-19 Vaccine (1) COVID-19 Vaccine (1) [facility] Start: 2004 Depression screening using PHQ-9 (Patient Health Questionnaire 9) score Depression Screening (PHQ9) [facility] Start: 2003 Vaccination for human papillomavirus HPV VACCINE ADOL (1 - Female 3-dose series) [facility] Work Phone: Start: 1997 COVID-19 VACCINE (1) COVID-19 VACCINE (1) [facility] Start: 1995 History and physical examination, annual for health maintenance Wellness Visit [facility] Start: 1995 Medicare Wellness Visit Medicare Wellness Visit [facility] Start: 01-07-1993 COVID-19 VACCINE (#1) COVID-19 VACCINE (#1) [facility] Start: 1992 GONORRHEA SCREEN GONORRHEA SCREEN [facility] Start: 1992 Hepatitis B Vaccines (1 of 3 - 3-dose series) Hepatitis B Vaccines (1 of 3 - 3-dose series) [facility] Start: 1992 Hepatitis C antibody, confirmatory test HEPATITIS C VIRUS SCREENING [facility] Start: 1992 Lipid panel Lipid Panel [facility] Start: 1992 Medicare Annual Wellness Visit Medicare Annual Wellness Visit (AWV) [facility] Start: 1992 Screening for malignant neoplasm of cervix PAP SMEAR [facility] Albumin [Mass/volume ] in Serum or Plasma Albumin Lab Routine Papillary thyroid carcinoma (HCC) 04/19/2024 10:06 AM EDT [facility] Bacteria identified Aer cx Nom (Unsp spec) [facility] Bacteria identified Cx Nom (U) URINE CULTURE Microbiology STAT [facility] End: 04-25-2021 Bacteria identified in Unspecified specimen by Aerobe culture Urine Aerobic Culture Microbiology Routine Once for 1 Occurrences starting 04/25/2021 until 04/25/2021 [facility] Comment on above: Once for 1 Occurrences starting 04/25/20 until 04/25/2021 Calcium [Mass/volume ] in Serum or Plasma Calcium Lab Routine Papillary thyroid carcinoma (HCC) 04/19/2024 10:06 AM [facility] End: 10-19-2024 Carotid artery doppler assessment Ultrasound duplex carotid Vascular Ultrasound Routine Carotid artery disorder ([facility]) 1 Occurrences starting 08/19/2023 until 10/19/2024 [facility] Comment on above: 1 Occurrences starting 08/19/2023 until 10/19/2024 Chlamydia trachomati s rRNA assay Chlamydia/GC/Trichomonas Amplified RNA Microbiology Routine Screening for venereal disease 11/29/2019 1:36 PM EST [facility] CHLAMYDIA/GONOCOCCUS , JEFFRY CHLAMYDIA/GONOCOCCUS, JEFFRY STAT 12/19/2018 3:50 AM [facility] Work Phone: Down's maternal screening Maternal Downs Screen AFP4 Lab Routine Encounter for screening 12/14/2019 2:18 PM [facility] End: 04-27-2024 Extra Urine Puente Tube Extra Urine Puente Tube Lab Timed Once for 1 Occurrences starting 04/27/2024 until 04/27/2024 [facility] Work Phone: Comment on above: Once for 1 Occurrences starting 04/27/20 24 until 04/27/2024 End: 11-29-2020 Gardnerella vaginalis rRNA assay Vaginitis DNA Probes Microbiology Routine Screening for venereal disease 1 Occurrences starting 11/29/2019 until 11/29/2020 [facility] Comment on above: 1 Occurrences starting 11/29/2019 until 11/29/2020 Gardnerella vaginali s rRNA assay Vaginitis DNA Probes Microbiology Routine Screening for venereal disease 11/29/2019 1:36 PM EST [facility] End: 08-19-2024 Measurement of thyroperoxidase antibody Thyroid peroxidase antibody (TPO) Lab Routine Hyperthyroidism 1 Occurrences starting 08/19/2023 until 08/19/2024 [facility] Comment on above: 1 Occurrences starting 08/19/2023 until 08/19/2024 Measurement of thyroperoxidase antibody Thyroid peroxidase antibody (TPO) Lab Routine Hyperthyroidism 08/19/2023 3:26 PM EDT [facility] Microscopic examinat ion of vaginal Papanicolaou smear [facility] Neisseria gonorrhoea e nucleic acid detection Chlamydia/Gonorrhoeae Amplified RNA Microbiology Routine Screening for venereal disease 11/29/2019 1:36 PM EST [facility] End: 09-15-2024 NM THYROID UPTAKE AND SCAN NM Thyroid Uptake And Scan Imaging Routine Hyperthyroidism 1 Occurrences starting 09/15/2023 until 09/15/2024 [facility] Work Phone: Comment on above: 1 Occurrences starting 09/15/2023 until 09/15/2024 OBSTETRIC PANEL Obstetric Panel Lab Routine Encounter for screening for other viral diseases with fewer than 8 completed weeks gestation Encounter for supervision of normal first in first trimester 12/21/2020 1:49 PM EST [facility] Patient Education ED Dyspnea ED Hypertension, To Be Confirmed [facility] Work Phone: Patient referral [facility] Work Phone: T. pallidum IgG Ql (S) [facility] End: 08-19-2024 Thyroglobulin antibody measurement Thyroglobulin Antibody Lab Routine Hyperthyroidism 1 Occurrences starting 08/19/2023 until 08/19/2024 [facility] Comment on above: 1 Occurrences starting 08/19/2023 until 08/19/2024 Thyroglobulin antibo dy measurement Thyroglobulin Antibody Lab Routine Hyperthyroidism 08/19/2023 3:26 PM EDT [facility] End: 04-19-2025 Thyroid hormone tests Thyroglobulin Tumor Marker with Thyroglobulin Antibody Lab Routine Papillary thyroid carcinoma (HCC) 1 Occurrences starting 04/19/2024 until 04/19/2025 [facility] Comment on above: 1 Occurrences starting 04/19/2024 until 04/19/2025 Thyroid hormone tests Thyroglobu jocy Tumor Marker with Thyroglobulin Antibody Lab Routine Papillary thyroid carcinoma (HCC) 04/19/2024 10:06 AM EDT [facility] THYROIDECTOMY THYROIDECTOMY Go iter Hyperthyroidism [facility] End: 08-19-2024 Thyrotropin [Units/volume] in Serum or Plasma TSH Lab Routine Hyperthyroidism 1 Occurrences starting 08/19/2023 until 08/19/2024 [facility] Work Phone: Comment on above: 1 Occurrences starting 08/19/2023 until 08/19/2024 Thyrotropin [Units/volume] in Serum or Plasma TSH Lab Routine Hyperthyroidism 08/19/2023 3:26 PM EDT [facility] End: 02-02-2025 Thyrotropin [Units/volume] in Serum or Plasma TSH with Reflex Free T4 Lab Routine Postoperative hypothyroidism 1 Occurrences starting 02/03/2024 until 02/02/2025 [facility] Work Phone: Comment on above: 1 Occurrences starting 02/03/2024 until 02/02/2025 Thyrotropin [Units/volume] in Serum or Plasma TSH with Reflex Free T4 Lab Routine Postoperative hypothyroidism 02/03/2024 11:27 AM EST [facility] End: 04-19-2025 Thyrotropin [Units/volume] in Serum or Plasma TSH with Reflex Free T4 Lab Routine Papillary thyroid carcinoma (HCC) 1 Occurrences starting 04/19/2024 until 04/19/2025 [facility] Work Phone: Comment on above: 1 Occurrences starting 04/19/2024 until 04/19/2025 Thyrotropin [Units/volume] in Serum or Plasma TSH with Reflex Free T4 Lab Routine Papillary thyroid carcinoma (HCC) 04/19/2024 10:06 AM EDT [facility] End: 08-19-2024 Thyroxine (T4) [Mass/volume] in Serum or Plasma T4 Lab Routine Hyperthyroidism 1 Occurrences starting 08/19/2023 until 08/19/2024 [facility] Comment on above: 1 Occurrences starting 08/19/2023 until 08/19/2024 Thyroxine (T4) [Mass/volume] in Serum or Plasma T4 Lab Routine Hyperthyroidism 08/19/2023 3:26 PM EDT [facility] Trichomonas vaginali s Amplified RNA Trichomonas vaginalis Amplified RNA Microbiology Routine Screening for venereal disease 11/29/2019 1:36 PM EST [facility] End: 04-27-2024 Trichomonas vaginalis rRNA [Presence] in Unspecified specimen by JEFFRY with probe detection [facility] Work Phone: Comment on above: Once (Lab) for 1 Occurrences starting until 04/27/2024 TSH Qn TSH with Reflex Free T4 Lab Routine Encounter for screening 02/17/2020 10:45 AM EDT [facility] End: 04-27-2024 Urinalysis complete W Reflex Culture panel - Urine [facility] Service Area Work Phone: Comment on above: Once (Lab) for 1 Occurrences starting until 04/27/2024 End: 04-19-2025 US Head and neck soft tissue US Soft Tissue Neck and Thyroid Imaging Routine Papillary thyroid carcinoma (HCC) 1 Occurrences starting 04/19/2024 until 04/19/2025 [facility] Comment on above: 1 Occurrences starting 04/19/2024 until 04/19/2025 Immunizations Immunization Date Immunization Notes Care Provider Mar freed 02-24-2023 tetanus toxoid, reduced diphtheria toxoid, and acellular pertussis vaccine, adsorbed; Translations: [Tdap (Boostrix)] No PCP None [facility] Comment on above: Series: 06-09-2022 tetanus toxoid, reduced diphtheria toxoid, and acellular pertussis vaccine, adsorbed Morales Banerjee DO Work Phone: [facility] 03-27-2021 tetanus toxoid, reduced diphtheria toxoid, and acellular pertussis vaccine, adsorbed Akil Rossi MD Work Phone: [facility] 05-09-2020 varicella zoster immune globulin Akil Rossi [facility] 05-09-2020 diphtheria, tetanus toxoids and acellular pertussis vaccine, unspecified formulation Akli Rossi [facility] 05-09-2020 measles, mumps and rubella virus vaccine [facility] 03-16-2020 tetanus toxoid, reduced diphtheria toxoid, and acellular pertussis vaccine, adsorbed [facility] 03-15-2020 diphtheria, tetanus toxoids and acellular pertussis vaccine, unspecified formulation [facility] 10-11-2019 flu vacc qs 2018-, 6 mos up, (FLUZONE QUAD/FLULAVAL QUAD/AFLURIA QUAD) injection [facility] 11-30-2016 tetanus toxoid, reduced diphtheria toxoid, and acellular pertussis vaccine, adsorbed [facility] 02-01-2014 human papilloma viru s vaccine, quadrivalent; Translations: [HPV (Gardasil)] No PCP None [address] Work Phone: Comment on above: Series: 02-01-2014 HPV, unspecified formulation Herrera Murali DO Work Phone: [facility] Work Phone: 08-09-2011 influenza virus vaccine, unspecified formulation [facility] 10-31-2009 novel [id number], preservative-free, injectable [facility] 10-31-2009 influenza virus vaccine, unspecified formulation [facility] Work Phone: NEGATED: Highlighted row has not occurred!05-16-2021 measles, mumps and rubella virus vaccine Charles Eric DO Work Phone: [facility] NEGATED: Highlighted row has not occurred!10-11-2019 influenza, injectable, quadrivalent, contains preservative [facility] Comment on above: Deferred: Patient Re fused Payers Date Payer Category Payer Self-pay 2019 Medicaid [id number] 2018 Medicaid MEDICAID MEDICAI D xxxxxxxxxxxx 2018-Present [id number] 2018 Medicaid [id number] [id number] .[id number] 2018 Medicaid [id number]. 1.13.385.2.7.3 .005842.315 2018 Medicare xxxxxxxxxxx [id number].3 .[id number] 2018 Medicare [id number] 1.2.840.880195.1.13.172.2.7.3 .774392.315 2018 Medicare 1.2.840.365459. 1.13.385.2.7.3 .119184.315 2018 Unknown 2018 Medicare [id number] 1992 Unknown [id number] 2.0.1.829222.3.579.2.106 9 1992 Unknown [id number] 2..1.012804.3.579.2.106 9 1992 Unknown [id number] 2.0.1.868050.3.579.2.106 9 1992 Unknown [id number] 2..1.177567.3.579.2.106 9 1992 Unknown [id number] 2..1.543440.3.579.2.903 1992 Unknown [id number] 2..1.486128.3.579.2.903 1992 Unknown [id number] 2.840.1.098826.3.579.2.356 1992 Unknown [id number] 2.0.1.064397.3.579.2.356 1992 Unknown [id number] 2.840.1.037582.3.579.2.356 1992 Unknown [id number] 2.0.1.961414.3.579.2.356 1992 Unknown [id number] 2.16.840.1.573494.3.579.2.356 1992 Unknown [id number] 2.16.840.1.178828.3.579.2.356 1992 Unknown [id number] 2.16.840.1.681348.3.579.2.356 1992 Unknown [id number] 2.16.840.1.758872.3.579.2.356 1992 Unknown [id number] 2.16.840.1.626771.3.579.2.356 1992 Unknown [id number] 2.16.840.1.952591.3.579.2.356 1992 Unknown [id number] 2.16.840.1.151988.3.579.2.356 1992 Unknown [id number] 2.840.1.788697.3.579.2.124 3 1992 Unknown [id number] 2.16.840.1.442362.3.579.2.124 3 1992 Unknown [id number] 2.16840.1.717898.3.579.2.124 3 1992 Unknown [id number] 2.16.840.1.813668.3.579.2.124 3 1992 Unknown [id number] 2.840.1.809566.3.579.2.903 1992 Unknown [id number] 2.16.840.1.558618.3.579.2.903 1992 Unknown [id number] 2.16.840.1.893262.3.579.2.903 1992 Unknown [id number] 2.16.840.1.116516.3.579.2.903 1992 Unknown [id number] 2.16.840.1.705356.3.579.2.903 1992 Unknown [id number] 2.16.840.1.464542.3.579.2.903 1992 Unknown [id number] 2.16.840.1.619939.3.579.2.903 Unknown [id number] 2.16.840.1.145791.3.579.2.462 Unknown [id number] 2.16.840.1.245046.3.579.2.462 Unknown [id number] 2.16.840.1.339572.3.579.2.462 Unknown [id number] 2.16.840.1.418455.3.579.2.462 Unknown [id number] 2.16.840.1.172628.3.579.2.462 Unknown [id number] 2.16.840.1.724235.3.579.2.462 Social History Date Type Detail Facility Start: 11-17-2018 End: 12-15-2023 Tobacco smoking status NHIS Former smoker [facility] Work Phone: Start: 1990 Sex Assigned At Not on file [facility] Work Phone: Start: 09-07-2018 Tobacco Comment also vapes [facility] [employer] Start: 12-11-2017 Alcohol Comment occasional [facility] Start: 06-09-2019 End: 03-01-2021 History SDOH Alcohol Frequency 4 [place] Start: 10-11-2019 End: 05-10-2024 Alcohol intake Ex-drinker (finding) [facility] Start: 09-07-2019 [facility] Exposure to SARS-CoV -2 (event) Unable to assess [facility] Start: 01-09-2022 End: 04-27-2024 Exposure to SARS-CoV-2 (event) Not sure [facility] Start: 06-08-2019 End: 11-18-2020 Tobacco use and exposure Former user [employer] Start: 05-10-2020 End: 12-15-2023 Tobacco use and exposure Never used [facility] Start: 01-19-2022 End: 06-09-2022 Alcohol intake Current drinker of alcohol (finding) [facility] Start: 02-18-2022 History SDOH Social Connections Get Together 3 [facility] Start: 02-18-2022 History SDOH Food Worry 1 [facility] Start: 02-18-2022 End: 01-01-2024 Never smoker Never smoker [facility] Tobacco smoking consumption unknown [facility] End: 10-31-2023 History of tobacco use Current smoker [facility] End: 10-31-2023 History of tobacco use Cigarette Smoker [facility] Start: 02-18-2022 End: 01-01-2024 Social connection and isolation panel [facility] Frequency of Communication with Friends and Family Not on file [facility] (I/We) worried wheth er (my/our) food would run out before (I/we) got money to buy more. Never true [facility] Start: 01-17-2020 Gender identity Identifies as female gender (finding) [facility] Start: 01-17-2020 Sexual orientation Heterosexual (finding) [facility] Has the electric, [employer], oil, or water company threatened to shut off services in your home in past 12Mo No [facility] Start: 02-10-2024 End: 05-06-2025 Tobacco smoking status NHIS Never smoked tobacco [facility] Start: 1990 Sex Assigned At Female [facility] Medical Equipment Procedure Code Equipment Code Equipment Origin al Text Equipment Identifier Dates Hemostat 1gm Mani sta - Sn/A [id number])N/A, [id number] FDA Start: 01-01-2024 Functional Status Date Assessment Result Facility Functional observable [facility] Mental Status Date Assessment Result Facility 05-06-2023 Cognitive functions 06-May-20 2319:04 [facility] Clinical Notes 04-25-2021 to 05-09-2025 Note Date & Type Note Facility 05-09-2025 Progress note [facility] 05-09-2025 Progress note [facility] 05-09-2025 Progress note Note Date/Time May 09, 2025 2:37pm [facility] [address] [place] [address] [place] [address] OFFICE VISIT Date of Service: 05/09/25 MR#: [id number] Acct: [id number] Name: TONI JACOBSON p #: [id number] : 1990 Provider: ANCELMO Staples Age/Sex: 34/F Location: [facility] Status: Signed Intake Vital Signs 05/04/25 09:17 05/06/25 11:55 05/09/25 13:24 Height 5 ft 3 in 5 ft 3 in 5 ft 3 in Weight: 157 lb 8 oz BMI 27.8 BP 148/78 H Blood Pressure Location Rt brachial Position Sitting Respiration 16 Pulse 93 Pulse Source Monitor Temp 97.1 F L Temp Source Temporal Pulse Oximetry (%) 99 Oxygen Delivery Method room air Intake Visit Reasons: high bp Chief Complaint: bp check Financial Services Sales Representative Required: No Accompanied by: Self Allergies No Known Allergies Allergy (Verified 05/09/25 13:18) Medications ?Medication ?Instructions ?Recorded ?Confirmed ?Type levothyroxine 112 mcg capsule 112 mcg PO QDAY 01/11/25 05/09/25 History albuterol sulfate 90 mcg/actuation 2 puff inhalation Q 4-6H PRN 05/09/25 05/09/25 Rx aerosol inhaler (Ventolin HFA) shortness of breath or wheezing #6.7 grams psyllium husk 3.4 gram/5.4 gram 1 tbsp PO QDAY #660 gr ams 05/09/25 05/09/25 Rx oral powder (Metamucil) Nurse's Note: life has been very stressful the last several months lost her in january. 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[employer] - [employer] Smoking Status: Never smoker second hand exposure: No alcohol intake: never substance use type: does not use what type of physical activity do you participate in: none do you feel safe at home: Yes HPI HPI Chief Complaint: bp check Details: TONI JACOBSON, is a 34 F who presents to the office today for ROS Const Constitutional: No body ache, excessive sweating, fatigue, fever(s), frequent falls, headache(s), snoring, weakness, weight change, sleep problems or change in appetite Eyes Eyes: No blurry vision, change in vision, eye pain or Light sensitivity ENT ENT: No abnormal hearing, ear or mastoid pain, tinnitus, nasal congestion, headache(s), neck pain or sore throat Resp Respiratory: No cough, shortness of breath, snoring or wheezing Cardio Cardiology: No chest pain at rest, chest pain with exertion, excessive sweating,shortness of breath, dyspnea on exertion, lightheadedness, orthopnea or palpitations Gastro GI: No abdominal pain, change in bowel habits, constipation, cramping, diarrhea,nausea/dyspepsia or vomiting Genitourinary-Female: No burning urination, painful urination, urinary incontinence, urinary frequency, blood in urine, abnormal periods or pelvic pain Musc Musculoskeletal: No abnormal gait, joint pain, back pain, limited range of motion, neck pain, numbness, stiffness, tingling or Arthritis Skin Skin: No dry skin, redness, lesions, itchy eyes, rash or wounds Neuro Neurology: No abnormal gait, abnormal hearing, abnormal speech, dizziness, weakness, frequent falls, headache(s), memory loss, numbness or tingling Psych Psychiatric: No anxiety, No change in appetite, No depression, No memory loss and No Thoughts of harming yourself/Others Endo Endocrine: No cold intolerance, excessive sweating, fatigue, flushing, heat intolerance, increased thirst/drinking, increased hunger or weight change Aller/Imm Allergy/Immunologic: No itchy eyes, seasonal allergy symptoms, hives or wheezing Eduin/Lymp Hematologic/Lymphatic: No easy bleeding, easy bruising or enlarged lymph nodes Coding Level of Care Code Off vis,est,level 2 Diagnoses Post-surgical hypothyroidism E89.0 Dyspnea R06.00 Assessment and Plan Assessment and Plan (1) Post-surgical hypothyroidism: Status: Acute (2) Dyspnea: Status: Acute Orders: Orders Thyroid Stim Hormone (TSH) Today E89.0 - Postprocedural hypothyroidism Medications: New albuterol sulfate 90 mcg/actuation (Ventolin HFA) 2 puffs inhalation Q4-6H PRN 6.7 grams 0RF shortness of breath or wheezing R06.00 - Dyspnea, unspecified Refilled psyllium husk (Metamucil) mix into at least 8 oz of water or juice before administering 1 tbsp PO QDAY 660 grams 5RF Plan Details Follow Up: 2 Months 05/09/25 1437 <Electronically signed by Komal AG> Date _ Komal AG Cosignkota Signature: Date (if applicable) CC: ~ [facility] Work Phone: 1(395) 365-265206-09-2025 Progress note Author Komal Staples [facility] Services Note Date/Time May 09, 2025 2:37p m [facility] [address] [place] [address] OFFICE VISIT Date of Service: 05/09/25 MR#: [id number] Acct: [id number] Name: TONI JACOBSONRosanna Milian p #: [id number] : 1990 Provider: ANCELMO Staples Age/Sex: 34/F Location: [facility] Status: Signed Intake Vital Signs 05/04/25 09:17 05/06/25 11:55 05/09/25 13:24 Height 5 ft 3 in 5 ft 3 in 5 ft 3 in Weight: 157 lb 8 oz BMI 27.8 BP 148/78 H Blood Pressure Location Rt brachial Position Sitting Respiration 16 Pulse 93 Pulse Source Monitor Temp 97.1 F L Temp Source Temporal Pulse Oximetry (%) 99 Oxygen Delivery Method room air Intake Visit Reasons: high bp Chief Complaint: bp check Allergies No Known Allergies Allergy (Verified 05/09/25 13:18) Medications ?Medication ?Instructions ?Recorded ?Confirmed ?Type levothyroxine 112 mcg capsule 112 mcg PO QDAY 01/11/25 05/09/25 History albuterol sulfate 90 mcg/actuation 2 puff inhalation Q 4-6H PRN 05/09/25 05/09/25 Rx aerosol inhaler (Ventolin HFA) shortness of breath or wheezing #6.7 grams psyllium husk 3.4 gram/5.4 gram 1 tbsp PO QDAY #660 gr ams 05/09/25 05/09/25 Rx oral powder (Metamucil) Have you fallen in the past year?: No PFSH Medical History Thyroid cancer Goiter Surgical History H/O thyroidectomy Family History Grandmother Anemia Arthritis Thyroid disorder Mother Arthritis Thyroid disorder Aunt Arthritis Breast cancer Daughter Asthma Aunt Colon cancer Aunt Thyroid disorder Social History household members: family current occupational status: employed 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 Patient states for about the last 2 weeks she has felt difficulty getting a deep breath and has felt tightness in the chest denies anything that makes it worse or any better. Complains of pain in her chest thatshe takes ibuprofen for she was recently evaluated in the ER and was told that her everything looked well she has complained of itchy eyes and runny nose states it happens twice a year has not taken routine allergy medicine does states that she has 1 daughter that has asthma last week she saw her refractory bricklayer at [facility] and he started her on a vitamin D supplement for low vitamin D he did not check a TSH at that appointment she alsocomplains of pain with bowel movements and constipation states she is not takingany medication to help her bowels at this time. Had elevated blood pressure reading at the hospital and at the refractory bricklayer office today's blood pressureis 148/78 ROS Const Constitutional: Positive for fatigue Resp Respiratory: Positive for pain on inspiration and shortness of breath; No cough Cardio Cardiology: Positive for shortness of breath; No palpitations Gastro GI: No abdominal pain Musc Musculoskeletal: No abnormal gait Skin Skin: Positive for itchy eyes Neuro Neurology: No abnormal gait Endo Endocrine: Positive for fatigue Aller/Imm Allergy/Immunologic: Positive for itchy eyes and seasonal allergy symptoms Exam Const General: cooperative, healthy appearing and no acute distress Nutritional Appearance: average body habitus Orientation: alert and oriented x3 HENMT Head: normal to inspection Ears: hearing grossly normal bilaterally Nose: external nose normal Face and sinus: normal facial exam Mouth: oral mucosae normal Teeth and gingiva: dentition normal Eyes General: appearance normal, both eyes and all related structures Neck Neck: normal visual inspection, no lymphadenopathy and no JVD Neck mass: No Carotids: normal carotid upstroke and no bruits Lymphatic: no lymphedema noted Chest Chest palpation & inspection: normal inspection of the chest Resp Effort & Inspection: normal respiratory effort, able to speak in complete sentences and symmetric chest movement Auscultation: Bilateral: Clear to Auscultation and Diminished Base Cardio Palpation: normal PMI Rate: regular rate Rhythm: regular rhythm Heart Sounds: S1 normal and S2 normal GI Inspection: normal to inspection Skin General: no rashes or lesions noted Neuro General: patient alert and patient oriented x3 Speech: speech normal Gait: normal gait Extrem General: normal to inspection and no clubbing, cyanosis or edema Coding Level of Care Code Established Pt Off vis,est,level 3 Patient Type Established History Problem Focused Exam Problem Focused Medical Decision Making Moderate Complexity Diagnoses Dyspnea, unspecified type R06.00 Dyspnea type: unspecified Elevated blood-pressure reading without diagnosis of hypertension R03.0 Post-surgical hypothyroidism E89.0 Time Spent (min) 50 Assessment and Plan Assessment and Plan (1) Dyspnea: Status: Acute Qualifiers: Dyspnea type: unspecified Qualified Code(s): R06.00 - Dyspnea, unspecified Plan: Continued shortness of breath does not feel worse with activity or improving on rest patient states constant that he feels difficult to take a deep breath in. Last week for same complaints had labs and chest x-ray completed. Will prescribe an albuterol inhaler 2 puffs every 4 hours as needed. Instructed patient on use she verbalized understanding. She is also to contact the office if this is not helpful. Due to symptoms of seasonal allergies and family history of asthma potential differential of allergy induced asthma. (2) Elevated blood-pressure reading without diagnosis of hypertension: Status: Acute Plan: Blood pressure 148/78 today previous reading in office was within normal limits patient is also having difficulty breathing today at times will solve acute issue first before starting medication patient instructed to keep a log of bloodpressures notify office if continually greater than 150/90 will not initiate medication at this time patient to follow-up in 2 months or sooner if needed (3) Post-surgical hypothyroidism: Status: Acute Plan: Patient saw endocrinology at [facility] last week 6 3 where she had blood work done they did not check her TSH at this appointment they plan to check it in July. Will check TSH today due to symptoms to rule out over or undertreated thyroid as a potential cause of symptoms Orders: Orders Thyroid Stim Hormone (TSH) Today E89.0 - Postprocedural hypothyroidism Medications: New albuterol sulfate 90 mcg/actuation (Ventolin HFA) 2 puffs inhalation Q4-6H PRN 6.7 grams 0RF shortness of breath or wheezing R06.00 - Dyspnea, unspecified Refilled psyllium husk (Metamucil) mix into at least 8 oz of water or juice before administering 1 tbsp PO [id number] grams 5RF Plan Details Follow Up: 2 Months Clinical Quality Measures Falls Risk Screening/Assistive Devices Have you fallen in the past year?: No 05/09/25 6817 <Electronically signed by Komal escudero NP-C> Date _ Komal AG Cosigner Signature: Date (if applicable) CC: ~ [facility] Work Phone: 1(134) 646-688506-03-2025 NoteReason for visit/chief complaint: 1.7 cm papillary thyroid cancer Date: 05/03/2025 Referring Provider: No ref. provider found Primary Care Provider: Brook, Physician HPI: Interval hx/subjective: 05/03/2025: She has been on LT4 112 mcg daily for the last ~2 months, but prior to that she was taking total of 8 pills a week (just forgot to take the extra pill). No missed doses, taking appropriately. No significant fatigue, palpitations, tremors, heat/cold intolerance, Bms are normal. Has gained some weight compared to last year, says she will go back to keto-diet soon. No neck lumps/pain, dysphagia, choking on food, voice changes, neck pressure sensation. Has not been taking any calcium pills for a long time. No vit D. No tingling/numbness, muscle cramps/twitches. No biotin/MVI/B-complex. Not sexually active, has Mirena. No plans for . Background from the initial consult note from 04/19/2024: Ms. Jacobson is a 34 y.o. female with hx of PTC. Chart shows low TSH with normal T4 in 08/2023 (with low normal TSH prior to that). She had CT neck with contrast in 07/2023 with indication of neck swelling; that showed ssight left deviation of trachea due to a R thyroid lesion 3.4 cm with additional smaller lesions on R side, and R rounded LN 2 cm in level 5B. US in 08/2023 reported $ 4.8 cm nodule along with other smaller nodules as below. Thyroid uptake and scan showed possible photopenia on R side. Thyroid FNA in 10/2023 was non-diagnostic. TSH was normal when repeated in 12/2023. She underwent total thyroidectomy on 12/31/2023; pathology revealed 1.7 cm classic PTC in R lobe with no angiolymphatic invasion, extrathyroidal extension wuth -ve margins. One LN was examined and was -ve. After surgery, calcium was low down to 7.5 but improved to 8.5 before discharge. she was discharged on levothyroxine 100 mcg daily and Ca/vit D 500 mg/200 units qid with meals. She takes levothyroxine 100 mcg daily; on an empty stomach on its own not with other meds (doesn't take any other oral meds) 1-2 hrs before breakfast. She may miss no doses per week. No biotin supplements. She is on Mirena IUD. She is currently off Ca/vit D pills at this time; only took it for 2 weeks after surgery. No numbness/tingling, muscle cramps/twitches. Ms. Jacobson endorses constipation sometimes. No fatigue, cold intolerance, dry skin, hair loss, palpitations, tremors, diarrhea/hyperdefecation, heat intolerance, excessive anxiety/nervousness, or weight change. Periods have been irregular after placing IUD in 10/2024, prior to that were regular. No red/dry eyes, bulging eyes, or double vision. In regards to mechanical/obstructive symptoms, no neck lump/swelling, neck pain, dysphagia, choking on food, voice changes, or pressure/choking sensation. Risk factors: -Hx of autoimmune diseases: no -Family hx of thyroid disease/cancer: mother, MGM and many aunts had thyroidectomy/lobectomy, no caner to her knowledge -Hx of thyroid surgery: as above -Hx of high risk/interfering medications: no -Recent URI/: had delivery 10 months ago -Hx of head/neck irradiation: no -Smoking: no Review of Systems: as per HPI Medical History: Past Medical History: Diagnosis Date Goiter Rubella non-immune status, antepartum 10/11/2019 Surgical History: Past Surgical History: Procedure Laterality Date OTHER surgery to remove the placenta - 05/2023 THYROIDECTOMY N/A 12/31/2023 Procedure: Total thyroidectomy with nerve monitoring; Surgeon: Hector Cerna MD; Location: [facility]; Service: Otolaryngology THYROIDECTOMY N/A 12/31/2023 Procedure: CONTROL OF POST-THYROIDECTOMY BLEEDING; Surgeon: Hector Cerna MD; Location: [facility]; Service: Otolaryngology TOOTH EXTRACTION Family History: Family History Problem Relation Age of Onset Thyroid nodules Mother Hypertension Father No Known Problems Sister Social History: Social History Socioeconomic History Marital status: Single Tobacco Use Smoking status: Former Current packs/day: 0.00 Types: Cigarettes Quit date: 10/2023 Years since quittin.5 Smokeless tobacco: Never Vaping Use Vaping status: Never Used Substance and Sexual Activity Alcohol use: Not Currently Drug use: Never Sexual activity: Yes Partners: Male Social Drivers of Health Food Insecurity: No Food Insecurity (01/01/2024) Hunger Vital Sign Worried About Running Out of Food in the Last Year: Never true Ran Out of Food in the Last Year: Never true Transportation Needs: No Transportation Needs (01/01/2024) PRAPARE - Transportation Lack of Transportation (Medical): No Lack of Transportation (Non-Medical): No Social Connections: Unknown (02/18/2022) Social Connection and Isolation Panel [NHANES] Frequency of Social Gatherings with Friends and Family: Twice a week Housing Stability: Low Risk (01/01/2024) Housing Stability Vital Sign [place] to Pay for Housing in [place] (more content not included)...[facility]02-13-2025 Evaluation note* Diagnosis Onset Date Resolution Status Admit Date Post-surgical hypothyroidism acute January 13, 2025 8:31am Establishing care with new doctor, encounter for noneactive January 012024 8:31am Presence of intrauterine contraceptive device noneactive January 132024 8:31am History of thyroid cancer noneactive January 13, 2025 8:31am Rectal pain noneactive January 8:31am Dyspnea acute May 09, 2025 1:13pm Elevated blood-pressure reading without diagnosis of hypertension acute May 09, 2025 1 :13pm Post-surgical hypothyroidism acute May 09, 2025 1:13pm [email or web address] Work Phone: 1(553) 237-345206-10-2024 Note[facility] [address] [facility] [address] [facility] [address] Dept: [phone] MD Toni Mcdonough 33 y.o. female Patient presents with a chief complaint of Follow-up (3MO F/U PAPILLARY THYROID CANCER SURVEILLANCE) Temp 98.4 degrees F (36.9 degrees C) (Temporal) Wt 66.5 kg (146 lb 8 oz) BMI 25.95 kg/m History of Presenting Illness: The patient/caregiver reports a history of complaint with the following features: She reports that she si doing well after total thyroidectomy with a right papillary carcinoma identified at surgery. She has been under evaluation by endocrinology and recently had her levothyroxine dose increased. No voice changes or hypocalcemic symptoms are reported. Review of systems covering 10 systems is reviewed and pertinent positives and negatives are noted as above. Past Medical History: Diagnosis Date Goiter Rubella non-immune status, antepartum 10/11/2019 Current Outpatient Medications: levonorgestreL (MIRENA) 21 mcg/24 hours (8 yrs) 52 mg IUD, 1 (one) each by Intrauterine route continuous ., Disp: , Rfl: levothyroxine (SYNTHROID, LEVOTHROID) 112 MCG tablet, Take 1 (one) tablet (112 mcg total) by mouth once daily Take on an empty stomach (only with water) at least 1 hr before other medications/food/drinks, and 4 hours apart from any calcium, magnesium, iron or multivitamin supplements. ., Disp: 30 tablet, Rfl: 11 calcium-vitamin D (OS-IRASEMA +D) 500 mg-5 mcg (200 unit) per tablet, Take 1 (one) tablet by mouth 4 (four) times a day with meals . (Patient not taking: Reported on 04/19/2024 .), Disp: 120 tablet, Rfl: 0 No Known Allergies Past Surgical History: Procedure Laterality Date OTHER surgery to remove the placenta - 05/2023 THYROIDECTOMY N/A 12/31/2023 Procedure: Total thyroidectomy with nerve monitoring; Surgeon: Hector Cerna MD; Location: [facility]; Service: Otolaryngology THYROIDECTOMY N/A 12/31/2023 Procedure: CONTROL OF POST-THYROIDECTOMY BLEEDING; Surgeon: Hector Cerna MD; Location: [facility]; Service: Otolaryngology TOOTH EXTRACTION Social History Socioeconomic History Marital status: Single Tobacco Use Smoking status: Former Packs/day: 0 Types: Cigarettes Quit date: 10/2023 Years since quittin.5 Smokeless tobacco: Never Vaping Use Vaping Use: Never used Substance and Sexual Activity Alcohol use: Not Currently Drug use: Never Sexual activity: Yes Partners: Male Social Determinants of Health Food Insecurity: No Food Insecurity (01/01/2024) Hunger Vital Sign Worried About Running Out of Food in the Last Year: Never true Ran Out of Food in the Last Year: Never true Transportation Needs: No Transportation Needs (01/01/2024) PRAPARE - Transportation Lack of Transportation (Medical): No Lack of Transportation (Non-Medical): No Social Connections: Unknown (02/18/2022) Social Connection and Isolation Panel [NHANES] Frequency of Social Gatherings with Friends and Family: Twice a week Housing Stability: Low Risk (01/01/2024) Housing Stability Vital Sign Unable to Pay for Housing in the Last Year: No Number of Places Lived in the Last Year: 1 Unstable Housing in the Last Year: No Family History Problem Relation Age of Onset Thyroid nodules Mother Hypertension Father No Known Problems Sister PHYSICAL EXAM: The patient was examined today 05/10/2024 with findings as follows: CONSTITUTIONAL: General Appearance: well-appearing, nontoxic, alert, no acute distress Communication: understanding at normal conversational tones, normal voicing, speech intelligible HEAD/FACE: Head: atraumatic, normocephalic, no lesions Facial Inspection: no lesions, healthy skin Facial Strength: motor strength normal, symmetric strength, symmetric movement Sinuses: no sinus tenderness Salivary Glands: no enlargements of parotid glands, no tenderness of parotid glands, no masses of parotid glands, clear salivary flow on palpation from Stensen's ducts, no duct stones of Stensen's duct, no enlargement of submandibular glands, no tenderness of submandibular glands, no masses of submandibular glands, clear salivary flow from [place]'s ducts, no stones of [place]'s ducts Temporomandibular Joint: no crepitus with motion, no tenderness on palpation, no trismus, motion symmetric EYES: Pupils: PERRLA, extra-ocular movements intact, no nystagmus, sclera white, no redness of eyes, no watering of eyes EARS: Bilateral External Ears: no pits, no tags Right External Ear: normally formed, no lesions, no mastoid tenderness Left External Ear: normally formed, no lesions, no mastoid tenderness Right External Auditory Canal: normal, healthy skin, no obstructing cerumen, no discharge Left External Auditory Canal: normal, healthy skin, no obstructing cerumen, no discharge Right Tympanic Membrane: normal landmarks, translucent, mobile to pneumatic otoscopy (more content not included)...[facility]06-10-2024 History of Present illness Narrative* Hector Cerna MD - 05/10/2024 3:51 PM EDT [facility] [address] [facility] [address] [facility] [address] Dept: [phone] MD Vidal Mcdonoughsima Jacobson 33 y.o. female Patient presents with a chief complaint of Follow-up (3MO F/U PAPILLARY THYROID CANCER SURVEILLANCE) Temp 98.4 F (36.9 C) (Temporal) Wt 66.5 kg (146 lb 8 oz) BMI 25.95 kg/m History of Presenting Illness: The patient/caregiver reports a history of complaint with the following features: She reports that she si doing well after total thyroidectomy with a right papillary carcinoma identified at surgery. She has been under evaluation by endocrinology and recently had her levothyroxine dose increased. No voice changes or hypocalcemic symptoms are reported. Review of systems covering 10 systems is reviewed and pertinent positives and negatives are noted as above. Past Medical History: Diagnosis Date Goiter Rubella non-immune status, antepartum 10/11/2019 Current Outpatient Medications: levonorgestreL (MIRENA) 21 mcg/24 hours (8 yrs) 52 mg IUD, 1 (one) each by Intrauterine route continuous ., Disp: , Rfl: levothyroxine (SYNTHROID, LEVOTHROID) 112 MCG tablet, Take 1 (one) tablet (112 mcg total) by mouth once daily Take on an empty stomach (only with water) at least 1 hr before other medications/food/drinks, and 4 hours apart from any calcium, magnesium, iron or multivitamin supplements. ., Disp: 30 tablet, Rfl: 11 calcium-vitamin D (OS-IRASEMA +D) 500 mg-5 mcg (200 unit) per tablet, Take 1 (one) tablet by mouth 4 (four) times a day with meals . (Patient not taking: Reported on 04/19/2024 .), Disp: 120 tablet, Rfl: 0 No Known Allergies Past Surgical History: Procedure Laterality Date OTHER surgery to remove the placenta - 05/2023 THYROIDECTOMY N/A 12/31/2023 Procedure: Total thyroidectomy with nerve monitoring; Surgeon: Hector Cerna MD; Location: [facility]; Service: Otolaryngology THYROIDECTOMY N/A 12/31/2023 Procedure: CONTROL OF POST-THYROIDECTOMY BLEEDING; Surgeon: Hector Cerna MD; Location: [facility] OR; Service: Otolaryngology TOOTH EXTRACTION Social History Socioeconomic History Marital status: Single Tobacco Use Smoking status: Former Packs/day: 0 Types: Cigarettes Quit date: 10/2023 Years since quittin.5 Smokeless tobacco: Never Vaping Use Vaping Use: Never used Substance and Sexual Activity Alcohol use: Not Currently Drug use: Never Sexual activity: Yes Partners: Male Social Determinants of Health Food Insecurity: No Food Insecurity (01/01/2024) Hunger Vital Sign Worried About Running Out of Food in the Last Year: Never true Ran Out of Food in the Last Year: Never true Transportation Needs: No Transportation Needs (01/01/2024) PRAPARE - Transportation Lack of Transportation (Medical): No Lack of Transportation (Non-Medical): No Social Connections: Unknown (02/18/2022) Social Connection and Isolation Panel [NHANES] Frequency of Social Gatherings with Friends and Family: Twice a week Housing Stability: Low Risk (01/01/2024) Housing Stability Vital Sign Unable to Pay for Housing in the Last Year: No Number of Places Lived in the Last Year: 1 Unstable Housing in the Last Year: No Family History Problem Relation Age of Onset Thyroid nodules Mother Hypertension Father No Known Problems Sister PHYSICAL EXAM: The patient was examined today 05/10/2024 with findings as follows: CONSTITUTIONAL: General Appearance: well-appearing, nontoxic, alert, no acute distress Communication: understanding at normal conversational tones, normal voicing, speech intelligible HEAD/FACE: Head: atraumatic, normocephalic, no lesions Facial Inspection: no lesions, healthy skin Facial Strength: motor strength normal, symmetric strength, symmetric movement Sinuses: no sinus tenderness Salivary Glands: no enlargements of parotid glands, no tenderness of parotid glands, no masses of parotid glands, clear salivary flow on palpation from Stensen's ducts, no duct stones of Stensen's duct, no enlargement of submandibular glands, no tenderness of submandibular glands, no masses of subma ndibular glands, clear salivary flow from [place]'s ducts, no stones of [place]'s ducts Temporomandibular Joint: no crepitus with motion, no tenderness on palpation, no trismus, motion symmetric EYES: Pupils: PERRLA, extra-ocular movements intact, no nystagmus, sclera white, no redness of eyes, no watering of eyes EARS: Bilateral External Ears: no pits, no tags Right External Ear: normally formed, no lesions, no mastoid tenderness Left External Ear: normally formed, no lesions, no mastoid tenderness Right External Auditory Canal: normal, healthy skin, no obstructing cerumen, no discharge Left External Auditory Canal: normal, healthy skin, no obstructing cerumen, no discharge Right Tympanic Membrane: normal landmarks, translucent, mobile to pneumatic otoscopy, no perforation Left Tympanic Membrane: normal landmarks, translucent, mobile to pneumatic otoscopy, no perforation Hearing: intact to spoken voice, intact to finger rub, [place] midline, Right Ear: Rinne AC>BC, Left Left Ear: Rinne AC>BC NOSE: Nasal Skin: no lesions, no lacerations, no scars Nasal Dorsum: symmetric with no visible or palpable deformities Nasal Tip: normal symmetric nasal tip, normal nasal valves Nasal Mucosa: normal, pink and moist Septum: not markedly deformed, midline, no exposed vessels, no bleeding, no septal granuloma Turbinates: normal size and conformation Nasopharynx: normal ORAL CAVITY/MOUTH: Lips, teeth, gums: normal lips, normal gums, dentition intact, no dental pain on palpation Oral Mucosa: normal, moist, no lesions Palate: normal hard palate, normal soft palate, symmetric palatal elevation Floor of Mouth: normal floor of mouth Tongue: normal tongue, no lesions, no edema, no masses, normal mucosa, mobile Tonsils: normal tonsils, symmetric, no lesions Posterior pharynx: normal HYPOPHARYNX/LARYNX: Hypopharynx: normal hypopharynx, normal tongue base, normal pyriform sinus, normal vallecula Larynx: normal epiglottis, normal false vocal cords, normal true vocal cords, normal glottic mobility, no arytenoid edema, no post-cricoid edema, no subglottic stenosis NECK: Neck: no masses, trachea midline, normal range of motion, no cysts or pits, no tenderness to palpation Thyroid: normal thyroid, no enlargement, no tenderness, no nodules LYMPH NODES: Cervical: 1.5 cm palpable right level II lymph node SKIN: General Appearance: no lesions, warm and dry, normal turgor, no bruising NEUROLOGICAL SYSTEM: Orientation: oriented to time, oriented to place, oriented to person Cranial Nerves: Cranial Nerves II-XII intact, normal facial movement PSYCHIATRIC: Mood and affect: normal mood, normal affect Assessment and Plan: She is doing well after total thyroidectomy. Thyroglobulin is 4.9 and ultrasound shows an 8 mm leftnonspecific area as well as a right level II node with some loss of the fatty hilum, but retained oval shape and normal size. TSH has risen to 7.57 and levothyroxine has been increased. Her primary lesion had low risk factors, but these findings are concerning for the possibility of residual disease. I will defer to endocrinology on further management of these findings, but am available for biopsy if needed. She is educated on following the right cervical node by palpation and will notify me orendocrinology for any enlargement. 1. Primary thyroid cancer (HCC) 2. Postoperative hypothyroidism Return if symptoms worsen or fail to improve. The patient and/or caregiver is to notify the office if no improvement or worsening of symptoms is noted prior to the scheduled follow-up for sooner evaluation. The patient and/or caregiver is able to state an understanding of these recommendations and is agreeable to the treatment plan. --Hector Cerna MD on 05/10/2024 at 4:04 PM An electronic signature was used to authenticate this note. * Saumya Cabrera MA - 05/10/2024 3:45 PM EDT Review of Systems Constitutional: Negative. HENT: Negative. Eyes: Negative. Respiratory: Negative. Cardiovascular: Negative. Gastrointestinal: Negative. Endocrine: Negative. Genitourinary: Negative. Musculoskeletal: Negative. Skin: Negative. Allergic/Immunologic: Negative. Neurological: Negative. Hematological: Negative. Psychiatric/Behavioral: Negative. documented in this [id number] Hospital Discharge instructions * Discharge Instructions* Anastasiia Vasques PA-C - 04/27/2024 7:37 PM EDT Your urine is clear of any concerning infections. An ointment was sent to the pharmacy to help withthe rectal irritation. Follow-up with your family doctor within the next 1 to 2 days. Return with any worsening symptoms or concerns * Attachments The following attachments cannot be sent through Care Everywhere. * Vaginal discharge ([place]) * Proctitis ([place]) [facility] Phone: 1(894) 561-438105-20-2024 Instructions* Patient Instructions* Anders August MD - 04/19/2024 9:44 AM EDT Please have labs on the way out. Take levothyroxine (the thyroid replacement medicine) on an empty stomach (only with water) at least 1 hr before other medications/food/drinks, and 4 hours apart from any calcium, magnesium, iron or multivitamin supplements. If you miss a dose one day, take double the dose next day instead of skipping the dose or taking it in the middle of the day with food. Please schedule the ultrasound as soon as possible. documented in this [id number] History of Present illness Narrative* Andres August MD - 04/19/2024 9:00 AM EDT Images from the original note were not included. Reason for visit/chief complaint: 1.7 cm papillary thyroid cancer Date: 04/19/2024 Referring Provider: Hector Cerna MD Primary Care Provider: Charles Eric DO HPI: Ms. Jacobson is a 33 y.o. female with hx of PTC. Chart shows low TSH with normal T4 in 08/2023 (with low normal TSH prior to that). She had CT neck with contrast in 07/2023 with indication of neck swelling; that showed ssight left deviation of trachea due to a R thyroid lesion 3.4 cm with additional smaller lesions on R side, and R rounded LN 2 cm in level 5B. US in 08/2023 reported $ 4.8 cm nodule along with other smaller nodules as below. Thyroid uptake and scan showed possible photopenia on R side. Thyroid FNA in 10/2023 was non-diagnostic. TSH was normal when repeated in 12/2023. She underwent total thyroidectomy on 12/31/2023; pathology revealed 1.7 cm classic PTC in R lobe with no angiolymphatic invasion, extrathyroidal extension wuth -ve margins. One LN was examined and was -ve. After surgery, calcium was low down to 7.5 but improvedto 8.5 before discharge. she was discharged on levothyroxine 100 mcg daily and Ca/vit D 500 mg/200 units qid with meals. She takes levothyroxine 100 mcg daily; on an empty stomach on its own not with other meds (doesn't take any other oral meds) 1-2 hrs before breakfast. She may miss no doses per week. No biotin supplements. She is on Mirena IUD. She is currently off Ca/vit D pills at this time; only took it for 2 weeks after surgery. No numbness/tingling, muscle cramps/twitches. Ms. Jacobson endorses constipation sometimes. No fatigue, cold intolerance, dry skin, hair loss, palpitations, tremors, diarrhea/hyperdefecation, heat intolerance, excessive anxiety/nervousness, or weight change. Periods have been irregular after placing IUD in 10/2024, prior to that were regular. No red/dry eyes, bulging eyes, or double vision. In regards to mechanical/obstructive symptoms, no neck lump/swelling, neck pain, dysphagia, chokingon food, voice changes, or pressure/choking sensation. Risk factors: -Hx of autoimmune diseases: no -Family hx of thyroid disease/cancer: mother, MGM and many aunts had thyroidectomy/lobectomy, no caner to her knowledge -Hx of thyroid surgery: as above -Hx of high risk/interfering medications: no -Recent URI/: had delivery 10 months ago -Hx of head/neck irradiation: no -Smoking: no Review of Systems: as per HPI Medical History: Past Medical History: Diagnosis Date Goiter Rubella non-immune status, antepartum 10/11/2019 Surgical History: Past Surgical History: Procedure Laterality Date OTHER surgery to remove the placenta - 05/2023 THYROIDECTOMY N/A 12/31/2023 Procedure: Total thyroidectomy with nerve monitoring; Surgeon: Hector Cerna MD; Location: [facility]; Service: Otolaryngology THYROIDECTOMY N/A 12/31/2023 Procedure: CONTROL OF POST-THYROIDECTOMY BLEEDING; Surgeon: Hector Cerna MD; Location: [facility]; Service: Otolaryngology TOOTH EXTRACTION Family History: Family History Problem Relation Age of Onset Thyroid nodules Mother Hypertension Father No Known Problems Sister Social History: Social History Socioeconomic History Marital status: Single Tobacco Use Smoking status: Former Packs/day: 0 Types: Cigarettes Quit date: 10/2023 Years since quittin.4 Smokeless tobacco: Never Vaping Use Vaping Use: Never used Substance and Sexual Activity Alcohol use: Not Currently Drug use: Never Sexual activity: Yes Partners: Male Social Determinants of Health Food Insecurity: No Food Insecurity (01/01/2024) Hunger Vital Sign Worried About Running Out of Food in the Last Year: Never true Ran Out of Food in the Last Year: Never true Transportation Needs: No Transportation Needs (01/01/2024) PRAPARE - Transportation Lack of Transportation (Medical): No Lack of Transportation (Non-Medical): No Social Connections: Unknown (02/18/2022) Social Connection and Isolation Panel [NHANES] Frequency of Social Gatherings with Friends and Family: Twice a week Housing Stability: Low Risk (01/01/2024) Housing Stability Vital Sign Unable to Pay for Housing in the Last Year: No Number of Places Lived in the Last Year: 1 Unstable Housing in the Last Year: No Allergies: No Known Allergies Current Medications: Current Outpatient Medications Medication Sig Dispense Refill levonorgestreL (MIRENA) 21 mcg/24 hours (8 yrs) 52 mg IUD 1 (one) each by Intrauterine route continuous . levothyroxine (SYNTHROID, LEVOTHROID) 100 MCG tablet Take 1 (one) tablet (100 mcg total) by mouth once daily . 30 tablet 0 calcium-vitamin D (OS-IRASEMA +D) 500 mg-5 mcg (200 unit) per tablet Take 1 (one) tablet by mouth 4 (four) times a day with meals . (Patient not taking: Reported on 04/19/2024 .) 120 tablet 0 No current facility-administered medications for this visit. Physical Exam: Vitals: BP 134/89 (BP Location: Left arm) Pulse 82 Wt 66.6 kg (146 lb 12.8 oz) BMI 26.00 kg/m, Body mass index is 26 kg/m ., Wt Readings from Last 3 Encounters: 04/19/24 66.6 kg (146 lb 12.8 oz) 02/03/24 66.9 kg (147 lb 8 oz) 01/13/24 66.4 kg (146 lb 6.4 oz) General/Constitutional: , well-developed and in no distress Eyes: no remarkable proptosis, no diplopia on exam Neck: no thyromegaly present/ LN appreciated, transverse scar Cardiovascular: regular rhythm Pulmonary/Chest: effort normal Abdominal: soft, no tenderness Musculoskeletal: nomal range of motion, normal muscle mass Neurological: alert and oriented, no focal deficits, no tremors, DTRs normal, [place] sign -ve Skin: warm and moist Psychiatric: appropriate affect Lab/Imaging Data: Lab Results Component Value Date WBC 10.55 01/02/2024 HGB 8.6 (L) 01/02/2024 HCT 27.4 (L) 01/02/2024 MCV 100.7 (H) 01/02/2024 PLT 222 01/02/2024 Lab Results Component Value Date GLUCOSE 95 12/15/2023 NA 137 12/15/2023 K 4.0 12/15/2023 CL 107 12/15/2023 BUN 19 12/15/2023 CREATININE 0.66 12/15/2023 Lab Results Component Value Date ALT 24 02/18/2022 AST 22 02/18/2022 ALKPHOS 79 02/18/2022 BILITOT 0.5 02/18/2022 Lab Results Component Value Date TSH 2.41 02/03/2024 THYROIDAB 0.6 08/19/2023 Lab Results Component Value Date CALCIUM 8.5 01/02/2024 Lab Results Component Value Date LDLCALC 87 02/18/2022 CHOL 154 02/18/2022 HDL 52 02/18/2022 TRIG 74 02/18/2022 CHOLHDL 3.0 02/18/2022 Latest Reference Range & Units 02/17/20 10:45 02/27/21 15:15 02/18/22 14:27 08/19/23 15:26 12/15/23 08:25 TSH 0.27 - 4.20 mcIU/mL 0.43 0.46 0.47 0.09 (L) 0.35 T4 4.5 - 12.0 mcg/dL 8.2 Thyroglobulin Ab 0.0 - 3.9 IU/mL <0.9 Thyroid Peroxidase Ab 0.0 - 9.0 IU/mL 0.[address] w contrast 07/27/2023: LYMPH NODES: Rounded hypodense lesion adjacent to the right internal jugular vein at the right level 5 B cervical level measuring 2.0 x 1.6 cm (series 3, image [id number]). Otherwise, no findings suspicious of cervical lymphadenopathy. THYROID GLAND: Dominant heterogeneously enhancing hypodense lesion within the right thyroid lobe measuring 3.1 x 3.0 x 3.4 cm. This lesion results in leftward deviation of the trachea. There are additional hypodense lesions in the right thyroid lobe measuring 1.4 x 1.1 cm and 1.8 x 0.9 cm (series 3, image 551). US neck 09/02/2024: COMPARISON: No prior studies, except there is a CT of the chest that is reviewed of 06/09/2019. TECHNIQUE: Puente-scale imaging of the thyroid is done along with a few selected color Doppler images. FINDINGS: Examination of the thyroid is showing overall measurements of the right thyroid lobe are 6.9 x 4.0 x 3.7 cm. Measurements of the left thyroid lobe are 5.2 x 1.9 x 2.0 cm. Isthmus is 0.7 cm. There is a large complex cystic mass in the right thyroid lobe occupying a large portion of the right thyroid lobe. This nodule is showing overall dimensions of 4.8 x 3.7 x 2.9 cm. Loculations of cystic change interspersed with some degree of solid nodular changes within the nodule could be seen. It may be centered in the midportion of the right thyroid lobe. It is quite large and exerts considera ble mass effect on the adjacent tissue. It does not have significant increased vascularity, although there is some vascularity detected within portions of the wall of this complex cystic nodule. There is an additional nodule which is in the right side of the isthmus that is also a complex cystic nodule. This is much smaller measuring 0.7 x 1.0 x 1.3 cm. This has some cystic spaces interspersed with also some degree of solid elements. Imaging of the lower pole of the left thyroid lobe also shows a rounded nodule that has some smaller cystic spaces, but mostly seems to be solid. The solid areas are almost isoechoic with the adjacent thyroid. This nodule is measuring 1.7 x 1.2 x 1.3 cm. It does not seem to have increased vascularity or calcification. There are multiple smaller nodules also seen within this left thyroid lobe which are not individually measured. IMPRESSION: A multinodular change is seen in the thyroid. A large dominant complex cystic and solid nodule in the right thyroid lobe is seen exerting significant mass effect. This seems to be a T3 nodule, but the size of the nodule would suggest that fine-needle aspiration biopsy may be optimum. The other nodules also seem to be T3 nodules and do not seem to meet size criteria for biopsy at this time. Thyroid uptake and scan 11/05/2023: FINDINGS: Four-hour uptake = 9.2%. Normal range = 6-18%. Twenty-four hour uptake = 30.7%. Normal range = 10-35%. There is only subtle photopenia at the level of the dominant complex cystic lesion seen at the lower pole of the thyroid gland on the recently performed ultrasound. Otherwise, distribution of tracer is homogeneous and within normal limits throughout the thyroid gland. No hyperfunctioning hot nodules are seen. IMPRESSION: 1. Normal 4 and 24 hour uptake values as above. 2. Mild photopenia is seen at the lower pole of the right thyroid lobe corresponding to the complexcystic lesion seen by ultrasound. 3. Despite the clinical suspicion for hyperthyroidism, no hyperfunctioning hot nodule is identified. Pathology 12/31/2023: Procedure: Total thyroidectomy Tumor focality: Unifocal Tumor site: Right lobe Tumor size (greatest dimension): 1.7 cm Histologic type: Papillary carcinoma, classic subtype Mitotic rate: Less than 3 mitoses per 2 mm2 Ki-67 labeling index: (for medullary/mixed medullary and follicular carcinomas) Not applicable Tumor necrosis: Not identified Angioinvasion: Not identified Lymphatic invasion: Not identified Extrathyroidal extension: Not identified Margin status: All margins negative for carcinoma Regional lymph node status: All regional lymph nodes negative for tumor Number of lymph nodes with tumor: 0 Efren levels involved: Not applicable Size of largest metastatic deposit: Not applicable Extranodal extension: Not applicable Number of lymph nodes examined: 1 Efren levels examined: Cannot be determined Distant site(s) involved: Not applicable AJCC 8th edition pathologic stage: Modified Classification: Not applicable pT1b, pN0a, pM cannot be determined from the submitted specimen(s) A. Thyroid, total thyroidectomy: Papillary thyroid carcinoma (1.7 cm), classic type, right thyroid lobe. See synoptic report. Adenomatoid nodule. Changes consistent with previous biopsy site. One unremarkable lymph node (0/1). Assessment and plan: Ms. Jacobson is a 33 y.o. female with hx of PTC. PTC: -S/p total thyroidectomy on 12/31/2023; pathology revealed 1.7 cm classic PTC in R lobe with no angiolymphatic invasion, extrathyroidal extension wuth -ve margins. One LN was examined and was -ve. -So far, this seems like JENNIFER low risk T1b,N0a PTC. -Will get TSH/Tg/Ab, and neck US before deciding on next step. Also ordered Ca/alb given the low levels after surgery; she has no suggestive symptoms currently. -Keep on LT4 100 mcg till we receive results for possible dose adjustment, aiming for TSH in the range LLN-2 for now. Return in about 6 months (around 10/20/2024) for PTC f/u. Andres August MD Endocrinology I am managing Toni Jacobson for complex chronic condition(s) serving as the focal point for the patient's care for consistency and continuity over time. documented in this [id number] Hospital Discharge instructions * Discharge Instructions* Herrera Villegas DO - 02/10/2024 6:31 PM EDT Use over the counter Afrin for 2-3 days as discussed * Attachments The following attachments cannot be sent through Care Everywhere. * Sinusitis in adults ([place]) [facility] Work Phone: 1(422) 754-234803-12-2024 Emergency department Note* Herrera Villegas DO - 02/10/2024 5:58 PM EDT HPI Chief Complaint Patient presents with Headache C/o headache x 2 weeks. Also c/o cough and congestion. Denies fever Patient presents to the emergency department secondary to cough and nasal congestion. Symptoms havebeen present for 10 to 14 days. Patient has taken Tylenol to help with her symptoms which has helped somewhat. No history of head injury. Not the worst headache of her life. Not an abrupt onset thunderclap type headache. History provided by: Patient entry specialists used: No [place] Coma Scale Score: 15 Patient History Past Medical History: Diagnosis Date Encounter for insertion of intrauterine contraceptive device 02/01/2014 Encounter for insertion of mirena IUD Urinary tract infection, site not specified UTI (lower urinary tract infection) History reviewed. No pertinent surgical history. No family history on file. Social History Tobacco Use Smoking status: Never Smokeless tobacco: Never Vaping Use Vaping Use: Never used Substance Use Topics Alcohol use: Not on file Drug use: Never Physical Exam ED Triage Vitals [02/10/24 1803] Temperature Heart Rate Respirations BP 36.6 C (97.9 F) 83 16 (!) 143/98 Pulse Ox Temp Source Heart Rate Source Patient Position 97 % Oral -- -- BP Location FiO2 (%) -- -- Physical Exam Vitals and nursing note reviewed. Constitutional: General: She is not in acute distress. Appearance: Normal appearance. She is well-developed and normal weight. She is not ill-appearing, toxic-appearing or diaphoretic. Comments: Patient is sitting up in bed playing with her children. The lights are on. The TV is on at high volume. She is not photophobic. She is smiling. She appears quite well. HENT: Head: Normocephalic and atraumatic. Comments: Tympanic membrane's as well as external auditory canals and mastoid bones are unremarkable. Intranasal examination reveals boggy and erythematous turbinate bones. Nose: Nose normal. No rhinorrhea. Mouth/Throat: Mouth: Mucous membranes are moist. Pharynx: Oropharynx is clear. Comments: Posterior oropharynx reveals no erythema or exudate. There is cobblestoning and postnasaldrip noted. Neck: Meningeal: Brudzinski's sign and Kernig's sign absent. Comments: Trachea is midline Cardiovascular: Rate and Rhythm: Normal rate and regular rhythm. Heart sounds: No murmur heard. Pulmonary: Effort: Pulmonary effort is normal. Breath sounds: Normal breath sounds. No wheezing. Abdominal: General: Abdomen is flat. Musculoskeletal: General: Normal range of motion. Cervical back: Normal range of motion. Skin: General: Skin is warm and dry. Findings: No rash. Neurological: General: No focal deficit present. Mental Status: She is alert and oriented to person, place, and time. Mental status is at baseline. Psychiatric: Mood and Affect: Mood normal. Behavior: Behavior normal. Thought Content: Thought content normal. Judgment: Judgment normal. ED Course & MDM Medical Decision Making Based on the history and physical examination findings I feel treatment for sinus disease would be appropriate given the timeline of the patient's symptoms. Patient will be placed on azithromycin andalso instructed to use fely-iha-clvazvi Afrin nasal spray for 2 to 3 days. Tylenol for discomfort and primary care follow-up. Return if worse. Procedure Procedures Herrera Villegas DO 02/10/24 182 [facility] Work Phone: 1(229) 904-562103-12-2024 Physician Emergency department Note* Herrera Villegas DO - 02/10/2024 5:58 PM EDT HPI Chief Complaint Patient presents with Headache C/o headache x 2 weeks. Also c/o cough and congestion. Denies fever Patient presents to the emergency department secondary to cough and nasal congestion. Symptoms havebeen present for 10 to 14 days. Patient has taken Tylenol to help with her symptoms which has helped somewhat. No history of head injury. Not the worst headache of her life. Not an abrupt onset thunderclap type headache. History provided by: Patient entry specialists used: No [place] Coma Scale Score: 15 Patient History Past Medical History: Diagnosis Date Encounter for insertion of intrauterine contraceptive device 02/01/2014 Encounter for insertion of mirena IUD Urinary tract infection, site not specified UTI (lower urinary tract infection) History reviewed. No pertinent surgical history. No family history on file. Social History Tobacco Use Smoking status: Never Smokeless tobacco: Never Vaping Use Vaping Use: Never used Substance Use Topics Alcohol use: Not on file Drug use: Never Physical Exam ED Triage Vitals [02/10/24 1803] Temperature Heart Rate Respirations BP 36.6 C (97.9 F) 83 16 (!) 143/98 Pulse Ox Temp Source Heart Rate Source Patient Position 97 % Oral -- -- BP Location FiO2 (%) -- -- Physical Exam Vitals and nursing note reviewed. Constitutional: General: She is not in acute distress. Appearance: Normal appearance. She is well-developed and normal weight. She is not ill-appearing, toxic-appearing or diaphoretic. Comments: Patient is sitting up in bed playing with her children. The lights are on. The TV is on at high volume. She is not photophobic. She is smiling. She appears quite well. HENT: Head: Normocephalic and atraumatic. Comments: Tympanic membrane's as well as external auditory canals and mastoid bones are unremarkable. Intranasal examination reveals boggy and erythematous turbinate bones. Nose: Nose normal. No rhinorrhea. Mouth/Throat: Mouth: Mucous membranes are moist. Pharynx: Oropharynx is clear. Comments: Posterior oropharynx reveals no erythema or exudate. There is cobblestoning and postnasaldrip noted. Neck: Meningeal: Brudzinski's sign and Kernig's sign absent. Comments: Trachea is midline Cardiovascular: Rate and Rhythm: Normal rate and regular rhythm. Heart sounds: No murmur heard. Pulmonary: Effort: Pulmonary effort is normal. Breath sounds: Normal breath sounds. No wheezing. Abdominal: General: Abdomen is flat. Musculoskeletal: General: Normal range of motion. Cervical back: Normal range of motion. Skin: General: Skin is warm and dry. Findings: No rash. Neurological: General: No focal deficit present. Mental Status: She is alert and oriented to person, place, and time. Mental status is at baseline. Psychiatric: Mood and Affect: Mood normal. Behavior: Behavior normal. Thought Content: Thought content normal. Judgment: Judgment normal. ED Course & MDM Medical Decision Making Based on the history and physical examination findings I feel treatment for sinus disease would be appropriate given the timeline of the patient's symptoms. Patient will be placed on azithromycin andalso instructed to use agav-tnx-yfmeiph Afrin nasal spray for 2 to 3 days. Tylenol for discomfort and primary care follow-up. Return if worse. Procedure Procedures Herrera Villegas DO 02/10/24 1828 [facility] Work Phone: [phone]) 909-464403-05-2024 History of Present illness Narrative* Hector Cerna MD - 02/03/2024 11:20 AM EST [facility] [address] [facility] [place] [address] [facility] [address] Dept: [phone] MD Toni Mcdonough 33 y.o. female Patient presents with a chief complaint of Thyroid Problem (Primary thyroid cancer, recheck thyroidlevels and refill) Temp 98.1 F (36.7 C) (Temporal) Ht 5' 3 Wt 66.9 kg (147 lb 8 oz) BMI 26.13 kg/m History of Presenting Illness: The patient/caregiver reports a history of complaint with the following features: She reports that she is doing well after total thyroidectomy. She denies any perioral numbness or tingling. She has no voice complaints. The wound has been healing well with no pian, redness, or discharge. She ran out of her levothyroxine and missed her endocrine appointment. Review of systems covering 10 systems is reviewed and pertinent positives and negatives are noted as above. Past Medical History: Diagnosis Date Goiter Rubella non-immune status, antepartum 10/11/2019 Current Outpatient Medications: levonorgestreL (MIRENA) 21 mcg/24 hours (8 yrs) 52 mg IUD, 1 (one) each by Intrauterine route continuous ., Disp: , Rfl: levothyroxine (SYNTHROID, LEVOTHROID) 100 MCG tablet, Take 1 (one) tablet (100 mcg total) by mouth once daily ., Disp: 30 tablet, Rfl: 0 calcium-vitamin D (OS-IRASEMA +D) 500 mg-5 mcg (200 unit) per tablet, Take 1 (one) tablet by mouth 4 (four) times a day with meals ., Disp: 120 tablet, Rfl: 0 No Known Allergies Past Surgical History: Procedure Laterality Date OTHER surgery to remove the placenta - 05/2023 THYROIDECTOMY N/A 12/31/2023 Procedure: Total thyroidectomy with nerve monitoring; Surgeon: Hector Cerna MD; Location: Main OR; Service: Otolaryngology THYROIDECTOMY N/A 12/31/2023 Procedure: CONTROL OF POST-THYROIDECTOMY BLEEDING; Surgeon: Hector Cerna MD; Location: Main OR; Service: Otolaryngology TOOTH EXTRACTION Social History Socioeconomic History Marital status: Single Tobacco Use Smoking status: Former Packs/day: 0 Types: Cigarettes Quit date: 10/2023 Years since quittin.2 Smokeless tobacco: Never Vaping Use Vaping Use: Never used Substance and Sexual Activity Alcohol use: Not Currently Drug use: Never Sexual activity: Yes Partners: Male Social Determinants of Health Food Insecurity: No Food Insecurity (01/01/2024) Hunger Vital Sign Worried About Running Out of Food in the Last Year: Never true Ran Out of Food in the Last Year: Never true Transportation Needs: No Transportation Needs (01/01/2024) PRAPARE - Transportation Lack of Transportation (Medical): No Lack of Transportation (Non-Medical): No Social Connections: Unknown (02/18/2022) Social Connection and Isolation Panel [NHANES] Frequency of Social Gatherings with Friends and Family: Twice a week Housing Stability: Low Risk (01/01/2024) Housing Stability Vital Sign Unable to Pay for Housing in the Last Year: No Number of Places Lived in the Last Year: 1 Unstable Housing in the Last Year: No Family History Problem Relation Age of Onset Thyroid nodules Mother Hypertension Father No Known Problems Sister PHYSICAL EXAM: The patient was examined today 02/03/2024 with findings as follows: CONSTITUTIONAL: General Appearance: well-appearing, nontoxic, alert, no acute distress Communication: understanding at normal conversational tones, normal voicing, speech intelligible HEAD/FACE: Head: atraumatic, normocephalic, no lesions Facial Inspection: no lesions, healthy skin Facial Strength: motor strength normal, symmetric strength, symmetric movement Sinuses: no sinus tenderness Salivary Glands: no enlargements of parotid glands, no tenderness of parotid glands, no masses of parotid glands, clear salivary flow on palpation from Stensen's ducts, no duct stones of Stensen's duct, no enlargement of submandibular glands, no tenderness of submandibular glands, no masses of subma ndibular glands, clear salivary flow from [place]'s ducts, no stones of Margarette's ducts Temporomandibular Joint: no crepitus with motion, no tenderness on palpation, no trismus, motion symmetric EYES: Pupils: PERRLA, extra-ocular movements intact, no nystagmus, sclera white, no redness of eyes, no watering of eyes NECK: Neck: no masses, trachea midline, normal range of motion, no cysts or pits, no tenderness to palpation Thyroid: absent, incision clean, dry and intact LYMPH NODES: Cervical: no palpable lymph node enlargement SKIN: General Appearance: no lesions, warm and dry, normal turgor, no bruising NEUROLOGICAL SYSTEM: Orientation: oriented to time, oriented to place, oriented to person Cranial Nerves: Cranial Nerves II-XII intact, normal facial movement PSYCHIATRIC: Mood and affect: normal mood, normal affect Assessment and Plan: She is doing well after thyroidectomy. The wound is healing very well. Pathology did show a papillary thyroid carcinoma pT1b, N0a which is suspect is a low risk lesion and we are awaiting endocrine evaluation and recommendations. I have refilled her levothyroxine and ordered TSH to check dosage. 1. Postoperative hypothyroidism TSH with Reflex Free T4 2. Primary thyroid cancer (HCC) Return in about 3 months (around 05/05/2024). The patient and/or caregiver is to notify the office if no improvement or worsening of symptoms is noted prior to the scheduled follow-up for sooner evaluation. The patient and/or caregiver is able to state an understanding of these recommendations and is agreeable to the treatment plan. --Hector Cerna MD on 02/03/2024 at 11:24 AM An electronic signature was used to authenticate this note. * Nivia Garg MA - 02/03/2024 11:05 AM EST Review of Systems Constitutional: Negative. HENT: Negative. Eyes: Negative. Respiratory: Negative. Cardiovascular: Negative. Gastrointestinal: Negative. Endocrine: Negative. Genitourinary: Negative. Musculoskeletal: Negative. Skin: Negative. Allergic/Immunologic: Negative. Neurological: Negative. Hematological: Negative. Psychiatric/Behavioral: Negative. documented in this [id number] Telephone encounter Note* Telephone Encounter - Yareli Schrader MA - 02/02/2024 2:04 PM EST Pt called again asking if she doesn't get this filled if she would be ok? She takes it daily. [id number] Miscellaneous Notes* Telephone Encounter - Yareli Schrader MA - 02/02/2024 2:04 PM EST Pt called again asking if she doesn't get this filled if she would be ok? She takes it daily. * Telephone Encounter - Nivia Garg MA - 02/02/2024 12:26 PM EST Requested Prescriptions Pending Prescriptions Disp Refills levothyroxine (SYNTHROID, LEVOTHROID) 100 MCG tablet 30 tablet 0 Sig: Take 1 (one) tablet (100 mcg total) by mouth once daily . Pt request: [facility]/pharmacy #[id number] - [place] [address] DUY: 01/13/24 NOV: 04/12/24 OARRS/NARxCHECK Report Received and Assessed: 01/02/2024 Date controlled substance agreement signed: No data found Date of last drug screen: No data found Functional Assessment: No data found * Telephone Encounter - Yareli Schrader MA - 02/02/2024 11:55 AM EST Patient called stating the pharmacies tried to contact about a refill for this med. She stated her last pill was today. documented in this [id number] Telephone encounter Note* Telephone Encounter - Nivia Garg MA - 02/02/2024 12:26 PM EST Requested Prescriptions Pending Prescriptions Disp Refills levothyroxine (SYNTHROID, LEVOTHROID) 100 MCG tablet 30 tablet 0 Sig: Take 1 (one) tablet (100 mcg total) by mouth once daily . Pt request: [facility]/pharmacy #[id number] - [place] [address] DUY: 01/13/24 NOV: 04/12/24 OARRS/Helen Report Received and Assessed: 01/02/2024 Date controlled substance agreement signed: No data found Date of last drug screen: No data found Functional Assessment: No data found [id number] Telephone encounter Note* Telephone Encounter - Yareli Schrader MA - 02/02/2024 11:55 AM EST Patient called stating the pharmacies tried to contact about a refill for this med. She stated her last pill was today. [id number] History of Present illness Narrative* Hector Cerna MD - 01/13/2024 2:43 PM EST [facility] [address] [facility] [address] [facility] [address] Dept: [phone] MD Toni Mcdonough 33 y.o. female Patient presents with a chief complaint of Post-op (Post op thyroidectomy 12/31) Temp 97.2 F (36.2 C) (Temporal) Ht 5' 3 Wt 66.4 kg (146 lb 6.4 oz) LMP 12/31/2023 BMI 25.93 kg/m History of Presenting Illness: The patient/caregiver reports a history of complaint with the following features: She reports that she is doing well after total thyroidectomy. She denies any perioral numbness or tingling. She has no voice complaints. The wound has been healing well with no pian, redness, or discharge. Review of systems covering 10 systems is reviewed and pertinent positives and negatives are noted as above. Past Medical History: Diagnosis Date Goiter Rubella non-immune status, antepartum 10/11/2019 Current Outpatient Medications: calcium-vitamin D (OS-IRASEMA +D) 500 mg-5 mcg (200 unit) per tablet, Take 1 (one) tablet by mouth 4 (four) times a day with meals ., Disp: 120 tablet, Rfl: 0 levonorgestreL (MIRENA) 21 mcg/24 hours (8 yrs) 52 mg IUD, 1 (one) each by Intrauterine route continuous ., Disp: , Rfl: levothyroxine (SYNTHROID, LEVOTHROID) 100 MCG tablet, Take 1 (one) tablet (100 mcg total) by mouth once daily ., Disp: 30 tablet, Rfl: 0 No Known Allergies Past Surgical History: Procedure Laterality Date OTHER surgery to remove the placenta - 05/2023 THYROIDECTOMY N/A 12/31/2023 Procedure: Total thyroidectomy with nerve monitoring; Surgeon: Hector Cerna MD; Location: Main OR; Service: Otolaryngology THYROIDECTOMY N/A 12/31/2023 Procedure: CONTROL OF POST-THYROIDECTOMY BLEEDING; Surgeon: Hector Cerna MD; Location: Main OR; Service: Otolaryngology TOOTH EXTRACTION Social History Socioeconomic History Marital status: Single Tobacco Use Smoking status: Former Packs/day: 0 Types: Cigarettes Quit date: 10/2023 Years since quittin.2 Smokeless tobacco: Never Vaping Use Vaping Use: Never used Substance and Sexual Activity Alcohol use: Not Currently Drug use: Never Sexual activity: Yes Partners: Male Social Determinants of Health Food Insecurity: No Food Insecurity (01/01/2024) Hunger Vital Sign Worried About Running Out of Food in the Last Year: Never true Ran Out of Food in the Last Year: Never true Transportation Needs: No Transportation Needs (01/01/2024) PRAPARE - Transportation Lack of Transportation (Medical): No Lack of Transportation (Non-Medical): No Social Connections: Unknown (02/18/2022) Social Connection and Isolation Panel [NHANES] Frequency of Social Gatherings with Friends and Family: Twice a week Housing Stability: Low Risk (01/01/2024) Housing Stability Vital Sign Unable to Pay for Housing in the Last Year: No Number of Places Lived in the Last Year: 1 Unstable Housing in the Last Year: No Family History Problem Relation Age of Onset Thyroid nodules Mother Hypertension Father No Known Problems Sister PHYSICAL EXAM: The patient was examined today 01/13/2024 with findings as follows: CONSTITUTIONAL: General Appearance: well-appearing, nontoxic, alert, no acute distress Communication: understanding at normal conversational tones, normal voicing, speech intelligible HEAD/FACE: Head: atraumatic, normocephalic, no lesions Facial Inspection: no lesions, healthy skin Facial Strength: motor strength normal, symmetric strength, symmetric movement Sinuses: no sinus tenderness Salivary Glands: no enlargements of parotid glands, no tenderness of parotid glands, no masses of parotid glands, clear salivary flow on palpation from Stensen's ducts, no duct stones of Stensen's duct, no enlargement of submandibular glands, no tenderness of submandibular glands, no masses of subma ndibular glands, clear salivary flow from [place]'s ducts, no stones of Margarette's ducts Temporomandibular Joint: no crepitus with motion, no tenderness on palpation, no trismus, motion symmetric EYES: Pupils: PERRLA, extra-ocular movements intact, no nystagmus, sclera white, no redness of eyes, no watering of eyes NECK: Neck: no masses, trachea midline, normal range of motion, no cysts or pits, no tenderness to palpation Thyroid: absent, incision clean, dry and intact LYMPH NODES: Cervical: no palpable lymph node enlargement SKIN: General Appearance: no lesions, warm and dry, normal turgor, no bruising NEUROLOGICAL SYSTEM: Orientation: oriented to time, oriented to place, oriented to person Cranial Nerves: Cranial Nerves II-XII intact, normal facial movement PSYCHIATRIC: Mood and affect: normal mood, normal affect Assessment and Plan: She is doing well after thyroidectomy. The wound is healing very well. Pathology did show a papillary thyroid carcinoma pT1b, N0a which is suspect is a low risk lesion. Endocrine referral for evaluation and follow-up is made today. She may wean off her calcium supplementation, but resume if perioral numbness or muscle cramping develops. As calcium had normalized at discharge I do not expect any lo ng term parathyroid dysfunction. 1. Primary thyroid cancer (HCC) Ambulatory referral to Endocrinology Return in about 3 months (around 04/12/2024). The patient and/or caregiver is to notify the office if no improvement or worsening of symptoms is noted prior to the scheduled follow-up for sooner evaluation. The patient and/or caregiver is able to state an understanding of these recommendations and is agreeable to the treatment plan. --Hector Cerna MD on 01/13/2024 at 2:52 PM An electronic signature was used to authenticate this note. * Nivia Garg MA - 01/13/2024 2:24 PM EST Review of Systems Constitutional: Negative. HENT: Negative. Eyes: Negative. Respiratory: Negative. Cardiovascular: Negative. Gastrointestinal: Negative. Endocrine: Negative. Genitourinary: Negative. Musculoskeletal: Negative. Skin: Negative. Allergic/Immunologic: Negative. Neurological: Negative. Hematological: Negative. Psychiatric/Behavioral: Negative. documented in this [id number] Note* Plan of Care - Ju Multani RN - 01/02/2024 3:21 PM EST Care plan complete [id number] Miscellaneous Notes* Plan of Care - Ju Multani RN - 01/02/2024 3:21 PM EST Care plan complete * Quick Note - Ju Multani RN - 01/02/2024 2:59 PM EST Discharge instructions reviewed with and given to patient. * Plan of Care - Kayla Hameed RN - 01/01/2024 8:30 PM EST Problem: Actual or potential alteration in health Goal: Absence of healthcare acquired conditions Outcome: Partially Met Goal: Knowledge of Interdisciplinary Plan of Care Outcome: Partially Met Goal: Knowledge of Enviroment Outcome: Partially Met Problem: Pain Goal: Manage acute pain Outcome: Partially Met Goal: Manage chronic pain Outcome: Partially Met Goal: Reduced pain sensation Outcome: Partially Met Goal: Achievement of comfort function goal Outcome: Partially Met Problem: Nausea/Vomiting Goal: Absence of nausea/vomiting Outcome: Partially Met Goal: Nutrition intake to meet estimated needs Outcome: Partially Met Problem: Activity Intolerance Goal: Improved activity tolerance Outcome: Partially Met * Quick Note - Shannan Sue RN - 01/01/2024 3:27 PM EST Pt tolerating clear liquid, advance to full liquids at this time. * Quick Note - Mickie Martinez RN - 01/01/2024 5:00 AM EST Resting in bed, anterior neck surgical site well approximated with steri-strips intact. J/P drains to anterior neck draining dk red drainage. No dyspnea noted * Quick Note - Mickie Martinez RN - 01/01/2024 2:41 AM EST Returned to floor per bed, drowsy. IV Calcium Gluconate infusing at 100ml/hr per pump. Anterior neck incision well approximated with sutures dry and intact. Two MOHINI drains noted to left and right sides of neck incision. Drains have small amt of dk red drainage. Telemetry monitoring placed with continous pulse oximeter Call light in reach * Op Note - Hector Cerna MD - 01/01/2024 12:27 AM EST Operative Note Patient Name: Toni Jacobson : 1990 (33 y.o.) Date of Service: 01/01/2024 CSN: [id number] Procedure(s): CONTROL OF POST-THYROIDECTOMY BLEEDING Pre-Operative Diagnoses: * POST-OP THYROID BLEED Post-Operative Diagnoses: Surgeon(s) and Role: * Hector Cerna MD - Primary Anesthesiologist: Henrry Soto MD Anesthesiologist Doorkeeper: Levy Conde AA Natural Fabricator: Natalie Drake RN; Luzmaria Arguello RN Scrub Person: Juan Rosales RN Natural Fabricator Orientee: Davin Fletcher RN Float: Rosemary Arias RN Operative findings: The patient developed vigorous blood discharge and neck swelling after vomitingon the floor, having had previous little drain output. This causes significant mass effect and she was brought to the operating room and was placed under general anesthesia and intubated. When appropriate anesthesia was obtained, the patient was prepped and draped in usual fashion. The previous neck incision was then opened and a large blood clot evacuated. Active bleeding was noted from a small superior pole artery on the right from which the tie had become dislodged. Further bleeding was identified along the left inferior pole vessel of the parathyroid pedicle where a tie had been dislodged. These were ligated with silk suture. The other site where hemoclips had been used were additionally secured with silk suture ties to reduce the risk of additional loss of hemostasis should further vomiting be encountered. The wound bed was then copiously irrigated with saline solution and Valsalvaapplied. No further bleeding was identified. Hemostatic powder was applied to the wound bed and 2 #7 flat MOHINI drains were brought out through separate stab incisions in the neck. These were secured with silk sutures. The strap muscles were then reapproximated in the midline with 3-0 Vicryl sutures followed by interrupted 3- 0 Vicryl sutures to the platysma and subcutaneous tissues. Finally, a 5-0 Mo nocryl suture was placed in a running subcuticular stitch to close the skin. Benzoin and Steri-Strips were then applied. This completed the procedure and the patient was returned to anesthesia, was revived and extubated without complication having tolerated the procedure well. Intra and immediate post-operative complications: none Type of anesthesia used: General Estimated blood loss: 100 mL Estimated urine output: Refer to surgical log Specimen(s): * No specimens in log * Implant(s): Implant Name Type Inv. Item Serial No. Radiation Control Health Physicist Lot No. [id number] No. Used Action HEMOSTAT 1GM CONSTANTINO - SN/A HEMOSTAT 1GM [employer]STANTINO N/A [employer] [id number] N/A 1 Implanted Drain(s): Closed/Suction Drain 1 Right;Anterior Neck 7 Fr. (Active) Closed/Suction Drain 2 Left;Anterior Neck 7 Fr. (Active) Wound(s): Wound 12/31/23 1 Cervical Anterior (Active) Reassessment Unchd 12/31/231999 Dressing Status Intact 01/01/24112 Dressing Changed New 01/01/24112 Drainage Amount Large 01/01/2426 Drainage Description Red;Fresh blood 01/01/247 Wound Closure Steri-strip;Sutures 01/01/24 011 Hemostasis Other (Comment) 01/01/24112 Compression Dressing Not Applicable 01/01/24112 Hector Cerna MD 01/01/2024 1:45 AM * Quick Note - Mickie Martinez RN - 01/01/2024 12:00 AM EST Pt to OR per bed. All of belongings in room * Quick Note - Mickie Martinez RN - 12/31/2023 11:[address] Cerna, notified of neck edema, and increased MOHINI drainage with clots. Dr. Cerna states that patient will need to go back to OR * Code Documentation - Jose Lopez RN - 12/31/2023 11:01 PM EST Ice pack placed to neck incision site. * Code Documentation - Jose Lopez RN - 12/31/2023 11:00 PM EST Awaiting call back from Dr Cerna. * Significant Event - Adrien Luz MD - 12/31/2023 10:59 PM EST [facility] [place] Rapid Response Note Reason for BUSINESS INTERN Call: Neck swelling. Associated with increased MOHINI output and subjective trouble breathing. MOHINI drains emptied multiple times with copious amount of bright red bloody drainage and large clots. Neck circumference increased from 15.25 inches to 16 inches within 20 minutes. MOHINI drains stripped multiple times. Patient oxygenating well 98-100%, reports feeling tightness when breathing. Patient able to talk without hoarseness. Objective BP (!) 144/93 Pulse (!) 103 Temp 99.5 F (37.5 C) (Axillary) Resp (!) 25 Ht 5' 3 Wt 64.6 kg (142 lb 6.7 oz) LMP 12/31/2023 SpO2 99% BMI 25.23 kg/m Physical Examination General Appearance: alert; acutely ill appearing; in no acute distress Cardiovascular: regular rate and rhythm; normal S1, S2; no murmurs, rubs, clicks or gallops; no peripheral edema Respiratory: lungs clear to auscultation; without wheezes, rales or rhonchi; on room air Abdomen: soft, non-tender, non-distended; positive bowel sounds Neurological: oriented x 3; normal speech; no focal findings or movement disorder noted Neck: Anterior neck swollen with MOHINI drains in place. Providers present: Adrien Luz MD Assessment: Neck swelling s/p thyroidectomy Treatment Plan: Dr. Cerna contacted by nursing staff. Patient going back to the OR. Monitor airway closely until patient transferred to OR. I spent 10 minutes providing critical care services independent of procedures and other care providers. My time managing this critically ill patient included review of interval history, laboratories,radiology and consultation reports; performing a physical examination; discussing patient with the care team and managing life sustaining therapies to prevent imminent clinical deterioration. * Quick Note - Kayla Hameed RN - 12/31/2023 10:58 PM EST Rapid response called by Karissa Martinez RN for increased neck swelling, increased MOHINI output, and patient c/o trouble breathing. This RN assisted with MOHINI drains emptied multiple times with copious amountof bright red bloody drainage and large clots. Neck circumference increased from 15.25 inches to 16inches within 20 minutes. MOHINI drains stripped multiple times. Patient oxygenating well 98-100%, reports feeling tightness when breathing * Quick Note - Mickie Martinez RN - 12/31/2023 10:57 PM EST Pt in bed, c/o increasing neck tightness. Increased neck edema noted. Pulse ox 100% on room air. Resp 24 shallow and even. Pt c/o dyspnea. Applied Oxygen at 2l per nasal cannula HOB elevated BP 145/100 pulse 104. MOHINI drains to anterior neck surgical site draining lg amts of bright red drainage. Notified Rapid Response to assess patient * Quick Note - Mickie Martinez RN - 12/31/2023 10:52 PM EST At pt's bedside, HOB elevated . Pt c/o neck tightness, anterior neck appears puffy with J/P drains noted to be have large amts of dk red drainage in containers. Vs 152/109 HR 103. Resp 24, shallow and even Pulse ox 99% on room air Temp 98.3(o) Charge nurse and this nurse stripping J/P drains and emptying lg amts of bright red drainage. Multiple blood clots noted in J/P drains Pt is alert and verbal. Phoned Dr Cerna cell phone; message left to unit phone number. Charge nurse at bedside * Quick Note - Mickie Martinez RN - 12/31/2023 10:31 PM EST At bedside,pt vomited 100cc dk yellow liquid. Benadryl 50 given slowly IV push IVF cont at 100cc/hr * Quick Note - Mickie Martinez RN - 12/31/2023 10:30 PM EST Patient in bed, c/o nausea, states ,'I Think I'm gonna throw up Unable to take ordered Oscal at this time. Notified Dr. Cerna of c/o nausea/vomiting with new order given * Quick Note - Mickie Martinez RN - 12/31/2023 9:36 PM EST Pt in bed, c/o neck pain, rates pain at 7/10 Pt took one Percocet tablet at this time. Anterior neck incision well approximated with steri strips clean and dry. MOHINI drains have small amt of dk red drainage in bilateral. bulbs * Quick Note - Mickie Martinez RN - 12/31/2023 8:30 PM EST Pt in bed, states nausea is better, Given dez-julieth per request * Quick Note - Mickie Martinez RN - 12/31/2023 8:00 PM EST In bed, c/o nausea. Vomited 100ml of devi colored liquid. Zofran 4mg given IV for c/o nausea/vomiting. IVF cont at 100ml/hr Surgical incision anterior neck well approximated with sutures intact. J/P drains to each side of neck have only small amt of dk red drainage at this time. Call light in reach * Plan of Care - Shannan Sue RN - 12/31/2023 1:05 PM EST Problem: Actual or potential alteration in health Goal: Absence of healthcare acquired conditions Outcome: Partially Met Goal: Knowledge of Interdisciplinary Plan of Care Outcome: Partially Met Goal: Knowledge of Enviroment Outcome: Partially Met Note: Pt oriented to time, date, situation, and plan of care for today. Problem: Pain Goal: Manage acute pain Outcome: Partially Met Note: Pt reports sore throat and tenderness to touch. Ibuprofen ordered Q6 prn. Goal: Manage chronic pain Outcome: Partially Met Goal: Reduced pain sensation Outcome: Partially Met Goal: Achievement of comfort function goal Outcome: Partially Met Note: Goal 0/10 Problem: Nausea/Vomiting Goal: Absence of nausea/vomiting Outcome: Partially Met Note: Pt reports nausea. New order for Zofran as needed. Goal: Nutrition intake to meet estimated needs Outcome: Partially Met Problem: Activity Intolerance Goal: Improved activity tolerance Outcome: Partially Met Note: Pt ambulating in room with standby assist. * Quick Note - Shannan Sue RN - 12/31/2023 12:43 PM EST Pt arrived to room from OR. Ambulated to bathroom and back to bed with nurse and PSA. Reports nausea and throat discomfort. Called Dr. Cerna, new orders received for Zofran Q6 prn. * Op Note - Hector Cerna MD - 12/31/2023 8:15 AM EST Operative Note Patient Name: Toni Jacobson : 1990 (33 y.o.) Date of Service: 12/31/2023 [facility]: [id number] Procedure(s): Total thyroidectomy with nerve monitoring (CPT 54142) Pre-Operative Diagnoses: * Goiter [E04.9] Hyperthyroidism [E05.90] Post-Operative Diagnoses: * Goiter [E04.9] * Hyperthyroidism [E05.90] Surgeon(s) and Role: * Hector Cerna MD - Primary Anesthesiologist: Adrien Herrera MD Anesthesiologist Doorkeeper: Bennie Hernandez AA Natural Fabricator: Alma Delia Dawson RN Natural Fabricator Relief: Sukumar Wyatt RN Scrub Person Relief: Iza Chan ST Scrub Person: Irina Woodard LPN Assist: Mckayla Vasquez CNP Operative findings: The patient was identified in preoperative holding and brought to the operatingroom and was placed under general anesthesia and intubated with a neuro monitoring tube. This was then confirmed to be operational as per the marketing strategy manager's directions. When appropriate anesthesia was obtained, the patient was prepped and draped in usual fashion. The planned neck incision was then marked 2 fingerbreadths above the sternal notch with a marking pen and then injected with 1% lidocaine with 1:200,000 epinephrine for a total of 5 mL. After allowing for adequate vasoconstriction, a 15 blade scalpel was then used to make an incision through the skin and subcutaneous tissue. The platysma was then transected. Subplatysmal flaps were then elevated superiorly to the level of the hyoid. Additional flaps were then developed inferiorly to the level of the sternum. The strap muscles were then divided in the midline. This revealed the thyroid gland. A sub-capsular dissection was then carried out beginning along the left side. The middle thyroid vein was identified and transected and ligated with 3-0 silk suture. Dissection was then carried about the inferior and superior pole vessels which were then individually clamped and ligated with 3-0 silk sutures. The parathyroid glands were identified along the vascular pedicle inferiorly and preserved. The recurrent laryngeal nerve was identified and followed superiorly to the nerve entry point and preserved. The left lobe of the thyroid was then freed from its attachments at the trachea at Delfina ligament. Intraoperative stimulation of the recurrent laryngeal nerve showed good preservation of function. A similar procedure was then carried out on the contralateral side. The recurrent laryngeal nerve was laterally displaced over the very large cystic mass on that side and was dissected free and preserved with function confirmed by intraoperative stimulation with the nerve stimulator. The wound bed was then copiously irrigated with saline solution and 2 #7 flat MOHINI drains were brought out through separate stab incisions in the neck. These were secured with silk sutures. The strap muscles were then reapproximated in the midline with 3-0 Vicryl sutures followed by interrupted 3- 0 Vicryl sutures to the platysma and subcutaneous tissues. Finally, a 5-0 Monocryl suture was placed in a running subcuticular stitch to close the skin. Benzoin and Steri-Strips were then applied. This completed the procedure and the patient was returned to anesthesia, was revived and extubated without complication having tolerated the procedure well. Due to the complexity of the case a second assist was need to help with retraction, wound dissection, and closure and this was provided by Mckayla Vasquez CNP. Intra and immediate post-operative complications: none Type of anesthesia used: General Estimated blood loss: 75 mL Estimated urine output: Refer to surgical log Specimen(s): ID Type Source Tests Collected by Time Destination A : Out of body at 0942 Tissue Thyroid, Total TISSUE EXAM Hector Cerna MD 12/31/2023 0942 Implant(s): * No implants in log * Drain(s): Closed/Suction Drain Right;Anterior Neck 7 Fr. (Active) Closed/Suction Drain Left;Anterior Neck 7 Fr. (Active) Wound(s): Wound 12/31/23 1 Cervical Anterior (Active) Wound Closure Steri-strip 12/08/23 0004 Hector Cerna MD 12/31/2023 10:11 AM documented in this [id number] Note* Quick Note - Ju Multani RN - 01/02/2024 2:59 PM EST Discharge instructions reviewed with and given to patient. [id number] History of Present illness Narrative* Hector Cerna MD - 01/02/2024 9:41 AM EST Patient notified of result and plan for referral for endocrinology consultation, but anticipation that no further treatment is needed. * Hector Cerna MD - 01/02/2024 8:54 AM EST Assessment Date: 01/02/24 Pain Type & Exclusions Type of Pain: Acute Do exclusions apply to your patient (select all that apply): No Exclusions Apply I am prescribing: MORE than 30 MEDD Patient Suffers from the following condition(s) requiring longer duration (select all that apply): Surgical Condition The prescribed dose and/or duration is necessary to treat the pain: Yes The patient was advised of the risks and benefits, including potential of addiction: Yes * Hector Cerna MD - 01/01/2024 5:13 PM EST ENT PROGRESS NOTE 01/01/2024 5:13 PM Subjective: Admit Date: 12/31/2023 PCP: Charles Eric, Interval History: She is doing well today after a vomiting episode resulting in acute wound bleeding that required return to OR last night. She reports that her nausea has subsided and her neck is feeling much better with resolved tightness. She denies any perioral numbness or tingling. Voicing is normal. Incisional pain is controlled. A review of systems including 10 body systems is reviewed with the pertinent positives and negatives noted above. Diet: Diet Regular; Regular Medications: Scheduled Meds: calcium-vitamin D 1 tablet Oral 4X daily with meals levothyroxine 100 mcg Oral Daily Continuous Infusions: lactated Ringers 100 mL/hr (01/01/24 1012) lactated Ringers 0 (01/01/24 0108) lactated Ringers 100 mL/hr (01/01/24 0300) PRN Medications: acetaminophen, ibuprofen, nalOXone AND Notify physician AND naloxone, ondansetron, oxyCODONE-acetaminophen Objective: Vitals: BP 118/78 Pulse 72 Temp 98.6 F (37 C) (Oral) Resp 16 Ht 5' 3 Wt 64.6 kg (142 lb 6.7 oz) LMP 12/31/2023 SpO2 100% BMI 25.23 kg/m BMI: Body mass index is 25.23 kg/m . CBC: Recent Labs 01/01/24 0003 WBC 11.85* HGB 11.4* PLT 291 BMP: No results for input(s): NA, K, CL, BUN, CREATININE, GLUCOSE in the last 72 hours. Invalid input(s): CO2 Hepatic: No results for input(s): AST, ALT, BILITOT, ALKPHOS in the last 72 hours. Invalid input(s): ALB Troponin: No results for input(s): TROPONINI in the last 72 hours. BNP: No results for input(s): BNP in the last 72 hours. Lipids: No results for input(s): CHOL, HDL in the last 72 hours. Invalid input(s): LDLCALCU INR: No results for input(s): INR in the last 72 hours. PHYSICAL EXAM: The patient was examined today 01/01/2024 with findings as follows: CONSTITUTIONAL: General Appearance: well-appearing, nontoxic, alert, no acute distress Communication: understanding at normal conversational tones, normal voicing, speech intelligible HEAD/FACE: Head: atraumatic, normocephalic, no lesions Facial Inspection: no lesions, healthy skin, Chvostek's sign negative Facial Strength: motor strength normal, symmetric strength, symmetric movement EYES: Pupils: PERRLA, extra-ocular movements intact, no nystagmus, sclera white, no redness of eyes, no watering of eyes NECK: Neck: no masses, trachea midline, normal range of motion, no cysts or pits, no tenderness to palpation Thyroid: absent, wound intact with no fluid collection or redness LYMPH NODES: Cervical: no palpable lymph node enlargement SKIN: General Appearance: no lesions, warm and dry, normal turgor, no bruising NEUROLOGICAL SYSTEM: Orientation: oriented to time, oriented to place, oriented to person Cranial Nerves: Cranial Nerves II-XII intact, normal facial movement PSYCHIATRIC: Mood and affect: normal mood, normal affect ASSESSMENT AND PLAN: She is doing well with complication of wound bleeding. This appears well controlled at this time. Calcium was supplemented with IV overnight and is better today. She remains asymptomatic. Oral coverage is to continue, but with parathyroid glands preserved recovery in time is anticipated. Repeat CBCtomorrow to assess degree of hemorrhage is planned with ongoing calcium checks. Drain output is very low and if she continues to schneider well, home going tomorrow is likely. Diagnoses of Goiter and Hyperthyroidism were pertinent to this visit. [facility] [address] [facility] [id number] Dept: [phone] Loc: [phone] documented in this [id number] Consult note Pathology Doc ({Setting})Benign follicular lesion on medical collections representative section. Two frozen sections were performed. Results discussed with Dr. Cerna. The intraoperative diagnosis is written and signed on the original intraoperative form. [facility] Work Phone: [phone] Hospital Discharge instructions* Discharge Instructions* Hector Cerna MD - 01/02/2024 8:54 AM EST THYROIDECTOMY The thyroid gland is found in the neck, just above the clavicles. In health it is small, flat, and soft and divided into two lobes with a narrow band of tissue connecting the two sides. The thyroid gland secretes a hormone that regulates metabolism, or how fast your body s engine runs. Several diseases of the thyroid can occur that may require surgery. If the entire thyroid gland is removed, a medication to replace the thyroid hormone will need to be taken on a daily basis. REASONS FOR SURGERY- How is the decision made? Removal of the thyroid gland is a decision to be made between the surgeon and the patient or family. Only one half or the entire gland may be removed. Generally, removal is recommended when one or more of the following symptoms or findings are noted: ? A biopsy has found cancer, or cells suspicious for cancer ? A nodule greater than 4 centimeters, or rapid growth of a nodule ? Hoarse voice in the setting of a thyroid nodule ? Suspicious nodules in a patient age over 40 years or under 20, and male gender, or history of radiation exposure ? The gland has become so enlarged that it causes problems with breathing or swallowing ? Recurrent infection of the thyroid gland ? Other problems as discussed with your doctor SURGICAL TREATMENT- What are the Risks, Alternatives, Potential Complications, and Benefits? ? Risks- The risks from thyroidectomy include injury to the nerve of voicing resulting in hoarse voice, injury to the parathyroid glands resulting in low calcium levels, temporary or permanent numbness of the upper neck, an unfavorable scar, and bleeding or infection at the surgical site. There is also a small risk of complications from anesthesia. If surgery is performed for cancerous lesions additional treatment with radiation or chemotherapy may be needed. ? Alternatives- Non-cancerous tumors of the thyroid gland may be observed, and some cancerous lesions may be treated with radiation or treatment other than surgery. Sometimes a decision to not have treatment can have serious consequences that you should discuss with your doctor. ? Complications- The most severe complication from removal of all of the parathyroid glands can result in a potentially life threatening drop in calcium levels in the blood. This can require lifelongneed for calcium supplements. Also, if both nerves to the vocal cords become injured, severe difficulty breathing may occur and require the placement of a tracheostomy (breathing tube) in the neck. Severe bleeding resulting in compression of the breathing tube, the need for a blood transfusion, or is very uncommon. Notify your doctor immediately if rapid swelling or bleeding at the surgery site is noted after surgery. ? Benefits- Most thyroid surgery is without complications and with a good cosmetic outcome. Successin relieving most conditions is excellent. RECOVERY- What should I expect? Recovery generally lasts 1-2 weeks. Expect to spend at least the first night in the hospital and for a drain to remove fluid from under the incision to be placed. Most people can go home the next dayafter surgery when the drain output decreases. Once you have gone home, common events in the recovery period and expectations of what is normal are listed below. Call your doctor if you have any questions or concerns that are not answered here. ? Pain- Pain is an expected part of recovery after surgery. Pain may be noted at the incision, or with swallowing or speaking. This is treated with oral pain medications. Over the counter medicationssuch as Tylenol?, Aspirin?, Advil?, Motrin?, Aleve?, and ibuprofen are generally adequate for relief of pain. Take only the medication prescribed by your doctor. If pain worsens or is not relieved bythe pain medication taken as prescribed, call your doctor. ? Swelling or bleeding at the incision site- This is not normal. If you notice this, please call your doctor immediately. ? Numbness or tingling of the face, fingers, or toes- This is not normal and may be a symptom of low calcium levels. If you experience these symptoms notify your doctor. Other signs of low calcium include a racing heartbeat, anxiety, diarrhea, or malaise. ? Nausea and vomiting- These are usually due to the effects of anesthesia and should subside in thefirst day or two. If they continue, are related to taking the pain medication, or contain blood, notify your doctor. ? Fever- A low grade temperature of less than 102 F for a few days after surgery is normal. Notify your doctor for fever above this, or one that persists for greater than 3 days. ? Eating and drinking- You may resume your regular diet after surgery. ? Activity- It is recommended that heavy lifting, exertion, and other strenuous activity be avoidedfor one to two weeks after surgery. Do not drive or operate machinery while on pain medication. ? MEDICATIONS- Ask your doctor about resuming your home medications. Do not take herbal medicationswithout asking your doctor as these often have blood thinning properties which can increase the risk of bleeding. CONTINUING CARE- What additional care do I need? After you are discharged from the hospital, your doctor will see you for follow- up evaluation in approximately two weeks after surgery unless another time has been arranged. Call the office if an appointment has not been previously scheduled. You will likely be seen for several visits to ensure that healing is progressing well and that no complications have been encountered. Testing to determine the proper dose of thyroid hormone replacement will also be needed if the whole gland has been removed. Depending on the reason that surgery was performed, continuing follow-up or other treatment may be needed. NOTICE: THIS DOCUMENT IS INTENDED SOLELY FOR PATIENT EDUCATIONAL PURPOSES AND IS PROVIDED A COURTESY TO PATIENTS OF DR. HECTOR CERNA MD. IT IS NOT INTENDED A SUBSTITUTE FOR PROFESSIONAL MEDICAL CARE OR ADVICE. THE PATIENT SHOULD SEEK ADVICE FROM THE PHYSICIAN IF THERE ARE ANY QUESTIONS ABOUT THE CONTENTS OR DIRECTIONS PROVIDED IN THIS DOCUMENT documented in this [id number] Hospital course Narrative* Hector Cerna MD - 01/02/2024 8:40 AM EST DISCHARGE SUMMARY Patient: Toni Jacobson Date of : 1990 Site: [facility] Provider: Charles Eric DO Admit Date: 12/31/2023 Discharge Date/Time: 01/02/2024 Disposition: home Clinical Summary Hospital Course: Toni Jacobson is a 33 y.o. female patient of Charles Eric DO with a history of enlarged thyroid, nodules, and hyperthyroidism. Today she is doing well. The neck wound is flat without redness or fluid collection. Drain output is minimal. She denies perioral numbness or tingling. Calcium has normalized on oral supplementation.She is appropriate for discharge at this time. Discharge Diagnoses: Multinodular goiter, post-operative hemorrhage Surgeries: 12/31/23 Total thyroidectomy, possible neck dissection 12/31/23 POST-OP THYROID BLEED Consults: No orders of the defined types were placed in this encounter. Allergies: Patient has no known allergies. Discharge Diet: No special diet necessary Resume home diet Condition: stable Discharge Medications: Discharge Medications New Medications Details calcium-vitamin D 500 mg-5 mcg (200 unit) per tablet Commonly known as: OS-IRASEMA +D Take 1 (one) tablet by mouth 4 (four) times a day with meals . Quantity: 120 tablet levothyroxine 100 MCG tablet Commonly known as: SYNTHROID, LEVOTHROID Take 1 (one) tablet (100 mcg total) by mouth once daily . Quantity: 30 tablet oxyCODONE-acetaminophen 5-325 mg per tablet Commonly known as: PERCOCET Take 1 (one) tablet to 2 (two) tablets by mouth every 4 (four) hours as needed (Days supply per fill: 5) . Quantity: 12 tablet Medications To Continue Details levonorgestreL 21 mcg/24 hours (8 yrs) 52 mg IUD Commonly known as: MIRENA 1 (one) each by Intrauterine route continuous . Physician(s) Family Provider: Charles Eric DO, Address: [address] [place] [address] Follow Up: No follow-up provider specified. Additional Information: Patient surgery complicated by post-operative hemorrhage associated with vomiting event. This was controlled with return to OR. Patient instructions, including activity, were given to the patient/family at discharge. Please seethe After Visit Summary in the electronic medical record for details. Time spent on discharge: < 30 minutes Completed by: Hector Cerna MD on 01/02/24, 11:03 AM documented in this [id number] Note* Plan of Care - Kayla Hameed RN - 01/01/2024 8:30 PM EST Problem: Actual or potential alteration in health Goal: Absence of healthcare acquired conditions Outcome: Partially Met Goal: Knowledge of Interdisciplinary Plan of Care Outcome: Partially Met Goal: Knowledge of Enviroment Outcome: Partially Met Problem: Pain Goal: Manage acute pain Outcome: Partially Met Goal: Manage chronic pain Outcome: Partially Met Goal: Reduced pain sensation Outcome: Partially Met Goal: Achievement of comfort function goal Outcome: Partially Met Problem: Nausea/Vomiting Goal: Absence of nausea/vomiting Outcome: Partially Met Goal: Nutrition intake to meet estimated needs Outcome: Partially Met Problem: Activity Intolerance Goal: Improved activity tolerance Outcome: Partially Met [address]sfrTfvlgr25-47-5300 Note* Quick Note - Shannan Sue RN - 01/01/2024 3:27 PM EST Pt tolerating clear liquid, advance to full liquids at this time. [address]zlZgxuec03-82-1368 Note* Quick Note - Mickie Martinez RN - 01/01/2024 5:00 AM EST Resting in bed, anterior neck surgical site well approximated with steri-strips intact. J/P drains to anterior neck draining dk red drainage. No dyspnea noted [address]lwvPdtrrg46-70-6158 Note* Quick Note - Mickie Martinez RN - 01/01/2024 2:41 AM EST Returned to floor per bed, drowsy. IV Calcium Gluconate infusing at 100ml/hr per pump. Anterior neck incision well approximated with sutures dry and intact. Two MOHINI drains noted to left and right sides of neck incision. Drains have small amt of dk red drainage. Telemetry monitoring placed with continous pulse oximeter Call light in reach [address]VxlnAhsvfz41-09-7657 Note* Op Note - Hector Cerna MD - 01/01/2024 12:27 AM EST Operative Note Patient Name: Toni Jacobson : 1990 (33 y.o.) Date of Service: 01/01/2024 CSN: [id number] Procedure(s): CONTROL OF POST-THYROIDECTOMY BLEEDING Pre-Operative Diagnoses: * POST-OP THYROID BLEED Post-Operative Diagnoses: Surgeon(s) and Role: * Hector Cerna MD - Primary Anesthesiologist: Henrry Soto MD Anesthesiologist Doorkeeper: Levy Conde AA Natural Fabricator: Natalie Drake RN; Luzmaria Arguello RN Scrub Person: Juan Rosales RN Natural Fabricator Orientee: Davin Fletcher RN Float: Rosemary Arias RN Operative findings: The patient developed vigorous blood discharge and neck swelling after vomitingon the floor, having had previous little drain output. This causes significant mass effect and she was brought to the operating room and was placed under general anesthesia and intubated. When appropriate anesthesia was obtained, the patient was prepped and draped in usual fashion. The previous neck incision was then opened and a large blood clot evacuated. Active bleeding was noted from a small superior pole artery on the right from which the tie had become dislodged. Further bleeding was identified along the left inferior pole vessel of the parathyroid pedicle where a tie had been dislodged. These were ligated with silk suture. The other site where hemoclips had been used were additionally secured with silk suture ties to reduce the risk of additional loss of hemostasis should further vomiting be encountered. The wound bed was then copiously irrigated with saline solution and Valsalvaapplied. No further bleeding was identified. Hemostatic powder was applied to the wound bed and 2 #7 flat MOHINI drains were brought out through separate stab incisions in the neck. These were secured with silk sutures. The strap muscles were then reapproximated in the midline with 3-0 Vicryl sutures followed by interrupted 3- 0 Vicryl sutures to the platysma and subcutaneous tissues. Finally, a 5-0 Mo nocryl suture was placed in a running subcuticular stitch to close the skin. Benzoin and Steri-Strips were then applied. This completed the procedure and the patient was returned to anesthesia, was revived and extubated without complication having tolerated the procedure well. Intra and immediate post-operative complications: none Type of anesthesia used: General Estimated blood loss: 100 mL Estimated urine output: Refer to surgical log Specimen(s): * No specimens in log * Implant(s): Implant Name Type Inv. Item Serial No. Radiation Control Health Physicist Lot No. LRB No. Used Action HEMOSTAT 1GM CONSTANTINO - SN/A HEMOSTAT 1GM CONSTANTINO N/A [employer] [id number] N/A 1 Implanted Drain(s): Closed/Suction Drain 1 Right;Anterior Neck 7 Fr. (Active) Closed/Suction Drain 2 Left;Anterior Neck 7 Fr. (Active) Wound(s): Wound 12/31/23 1 Cervical Anterior (Active) Reassessment Unchd 12/31/231999 Dressing Status Intact 01/01/24112 Dressing Changed New 01/01/24112 Drainage Amount Large 01/01/2426 Drainage Description Red;Fresh blood 01/01/2426 Wound Closure Steri-strip;Sutures 01/01/24112 Hemostasis Other (Comment) 01/01/24112 Compression Dressing Not Applicable 01/01/24112 Hector Cerna MD 01/01/2024 1:45 AM [facility]ZcnzZxndgr43-48-3588 Note* Quick Note - Mickie Martinez RN - 01/01/2024 12:00 AM EST Pt to OR per bed. All of belongings in room [facility] CenterSecgGfyvnw35-26-5948 Note* Quick Note - Mickie Martinez RN - 12/31/2023 11:[address] Cerna, notified of neck edema, and increased MOHINI drainage with clots. Dr. Cerna states that patient will need to go back to OR [facility] CenterUdeuDpmjhx25-63-1704 Nurse procedure note* Code Documentation - Jose Lopez RN - 12/31/2023 11:01 PM EST Ice pack placed to neck incision site. [facility] CenterKzobWikymq59-63-5581 Nurse procedure note* Code Documentation - Jose Lopez RN - 12/31/2023 11:00 PM EST Awaiting call back from Dr Cerna. [id number] Note* Significant Event - Adrien Luz MD - 12/31/2023 10:59 PM EST [facility] Rapid Response Note Reason for BUSINESS INTERN Call: Neck swelling. Associated with increased MOHINI output and subjective trouble breathing. MOHINI drains emptied multiple times with copious amount of bright red bloody drainage and large clots. Neck circumference increased from 15.25 inches to 16 inches within 20 minutes. MOHINI drains stripped multiple times. Patient oxygenating well 98-100%, reports feeling tightness when breathing. Patient able to talk without hoarseness. Objective BP (!) 144/93 Pulse (!) 103 Temp 99.5 F (37.5 C) (Axillary) Resp (!) 25 Ht 5' 3 Wt 64.6 kg (142 lb 6.7 oz) LMP 12/31/2023 SpO2 99% BMI 25.23 kg/m Physical Examination General Appearance: alert; acutely ill appearing; in no acute distress Cardiovascular: regular rate and rhythm; normal S1, S2; no murmurs, rubs, clicks or gallops; no peripheral edema Respiratory: lungs clear to auscultation; without wheezes, rales or rhonchi; on room air Abdomen: soft, non-tender, non-distended; positive bowel sounds Neurological: oriented x 3; normal speech; no focal findings or movement disorder noted Neck: Anterior neck swollen with MOHINI drains in place. Providers present: Adrien Luz MD Assessment: Neck swelling s/p thyroidectomy Treatment Plan: Dr. Cerna contacted by nursing staff. Patient going back to the OR. Monitor airway closely until patient transferred to OR. I spent 10 minutes providing critical care services independent of procedures and other care providers. My time managing this critically ill patient included review of interval history, laboratories,radiology and consultation reports; performing a physical examination; discussing patient with the care team and managing life sustaining therapies to prevent imminent clinical deterioration. [facility] [employer] Work Phone: [phone] Note* Quick Note - Kayla Hameed RN - 12/31/2023 10:58 PM EST Rapid response called by Karissa Martinez RN for increased neck swelling, increased MOHINI output, and patient c/o trouble breathing. This RN assisted with MOHINI drains emptied multiple times with copious amountof bright red bloody drainage and large clots. Neck circumference increased from 15.25 inches to 16inches within 20 minutes. MOHINI drains stripped multiple times. Patient oxygenating well 98-100%, reports feeling tightness when breathing [facility] CenterEtpnWydqzz07-10-4020 Note* Quick Note - Mickie Martinez RN - 12/31/2023 10:57 PM EST Pt in bed, c/o increasing neck tightness. Increased neck edema noted. Pulse ox 100% on room air. Resp 24 shallow and even. Pt c/o dyspnea. Applied Oxygen at 2l per nasal cannula HOB elevated BP 145/100 pulse 104. MOHINI drains to anterior neck surgical site draining lg amts of bright red drainage. Notified Rapid Response to assess patient [facility] CenterYsznInsapu10-01-0812 Note* Quick Note - Mickie Martinez RN - 12/31/2023 10:52 PM EST At pt's bedside, HOB elevated . Pt c/o neck tightness, anterior neck appears puffy with J/P drains noted to be have large amts of dk red drainage in containers. Vs 152/109 HR 103. Resp 24, shallow and even Pulse ox 99% on room air Temp 98.3(o) Charge nurse and this nurse stripping J/P drains and emptying lg amts of bright red drainage. Multiple blood clots noted in J/P drains Pt is alert and verbal. Phoned Dr Cerna cell phone; message left to unit phone number. Charge nurse at bedside [address]nrfThuqhg89-93-4673 Note* Quick Note - Mickie Martinez RN - 12/31/2023 10:31 PM EST At bedside,pt vomited 100cc dk yellow liquid. Benadryl 50 given slowly IV push IVF cont at 100cc/hr [address]ZetbVodjyv77-58-2144 Note* Quick Note - Mickie Martinez RN - 12/31/2023 10:30 PM EST Patient in bed, c/o nausea, states ,'I Think I'm gonna throw up Unable to take ordered Oscal at this time. Notified Dr. Cerna of c/o nausea/vomiting with new order given [address]DfunTzqzdj94-35-3329 Note* Quick Note - Mickie Martinez RN - 12/31/2023 9:36 PM EST Pt in bed, c/o neck pain, rates pain at 7/10 Pt took one Percocet tablet at this time. Anterior neck incision well approximated with steri strips clean and dry. MOHINI drains have small amt of dk red drainage in bilateral. bulbs [address]VdlzNdyhkb29-50-8257 Note* Quick Note - Mickie Martinez RN - 12/31/2023 8:30 PM EST Pt in bed, states nausea is better, Given dez-julieth per request [address]LdpePgniap79-40-9179 Note* Quick Note - Mickie Martinez RN - 12/31/2023 8:00 PM EST In bed, c/o nausea. Vomited 100ml of devi colored liquid. Zofran 4mg given IV for c/o nausea/vomiting. IVF cont at 100ml/hr Surgical incision anterior neck well approximated with sutures intact. J/P drains to each side of neck have only small amt of dk red drainage at this time. Call light in reach [facility] CenterDkanRhnhzo45-89-6761 Note* Plan of Care - Shannan Sue RN - 12/31/2023 1:05 PM EST Problem: Actual or potential alteration in health Goal: Absence of healthcare acquired conditions Outcome: Partially Met Goal: Knowledge of Interdisciplinary Plan of Care Outcome: Partially Met Goal: Knowledge of Enviroment Outcome: Partially Met Note: Pt oriented to time, date, situation, and plan of care for today. Problem: Pain Goal: Manage acute pain Outcome: Partially Met Note: Pt reports sore throat and tenderness to touch. Ibuprofen ordered Q6 prn. Goal: Manage chronic pain Outcome: Partially Met Goal: Reduced pain sensation Outcome: Partially Met Goal: Achievement of comfort function goal Outcome: Partially Met Note: Goal 0/10 Problem: Nausea/Vomiting Goal: Absence of nausea/vomiting Outcome: Partially Met Note: Pt reports nausea. New order for Zofran as needed. Goal: Nutrition intake to meet estimated needs Outcome: Partially Met Problem: Activity Intolerance Goal: Improved activity tolerance Outcome: Partially Met Note: Pt ambulating in room with standby assist. [facility] CenterNwcyHmwbwl77-27-0524 Note* Quick Note - Shannan Sue RN - 12/31/2023 12:43 PM EST Pt arrived to room from OR. Ambulated to bathroom and back to bed with nurse and PSA. Reports nausea and throat discomfort. Called Dr. Cerna, new orders received for Zofran Q6 prn. [place] [id number] Note* Op Note - Hector Cerna MD - 12/31/2023 8:15 AM EST Operative Note Patient Name: Toni Jacobson : 1990 (33 y.o.) Date of Service: 12/31/2023 CSN: [id number] Procedure(s): Total thyroidectomy with nerve monitoring (CPT 70643) Pre-Operative Diagnoses: * Goiter [E04.9] Hyperthyroidism [E05.90] Post-Operative Diagnoses: * Goiter [E04.9] * Hyperthyroidism [E05.90] Surgeon(s) and Role: * Hector Cerna MD - Primary Anesthesiologist: Adrien Herrera MD Anesthesiologist Doorkeeper: Bennie Hernandez AA Natural Fabricator: Alma Delia Dawson RN Natural Fabricator Relief: Sukumar Wyatt RN Scrub Person Relief: Iza Chan ST Scrub Person: Irina Woodard LPN Assist: Mckayla Vasquez CNP Operative findings: The patient was identified in preoperative holding and brought to the operatingroom and was placed under general anesthesia and intubated with a neuro monitoring tube. This was then confirmed to be operational as per the marketing strategy manager's directions. When appropriate anesthesia was obtained, the patient was prepped and draped in usual fashion. The planned neck incision was then marked 2 fingerbreadths above the sternal notch with a marking pen and then injected with 1% lidocaine with 1:200,000 epinephrine for a total of 5 mL. After allowing for adequate vasoconstriction, a 15 blade scalpel was then used to make an incision through the skin and subcutaneous tissue. The platysma was then transected. Subplatysmal flaps were then elevated superiorly to the level of the hyoid. Additional flaps were then developed inferiorly to the level of the sternum. The strap muscles were then divided in the midline. This revealed the thyroid gland. A sub-capsular dissection was then carried out beginning along the left side. The middle thyroid vein was identified and transected and ligated with 3-0 silk suture. Dissection was then carried about the inferior and superior pole vessels which were then individually clamped and ligated with 3-0 silk sutures. The parathyroid glands were identified along the vascular pedicle inferiorly and preserved. The recurrent laryngeal nerve was identified and followed superiorly to the nerve entry point and preserved. The left lobe of the thyroid was then freed from its attachments at the trachea at Delfina ligament. Intraoperative stimulation of the recurrent laryngeal nerve showed good preservation of function. A similar procedure was then carried out on the contralateral side. The recurrent laryngeal nerve was laterally displaced over the very large cystic mass on that side and was dissected free and preserved with function confirmed by intraoperative stimulation with the nerve stimulator. The wound bed was then copiously irrigated with saline solution and 2 #7 flat MOHINI drains were brought out through separate stab incisions in the neck. These were secured with silk sutures. The strap muscles were then reapproximated in the midline with 3-0 Vicryl sutures followed by interrupted 3- 0 Vicryl sutures to the platysma and subcutaneous tissues. Finally, a 5-0 Monocryl suture was placed in a running subcuticular stitch to close the skin. Benzoin and Steri-Strips were then applied. This completed the procedure and the patient was returned to anesthesia, was revived and extubated without complication having tolerated the procedure well. Due to the complexity of the case a second assist was need to help with retraction, wound dissection, and closure and this was provided by Mckayla Vasquez CNP. Intra and immediate post-operative complications: none Type of anesthesia used: General Estimated blood loss: 75 mL Estimated urine output: Refer to surgical log Specimen(s): ID Type Source Tests Collected by Time Destination A : Out of body at 0942 Tissue Thyroid, Total TISSUE EXAM Hector Cerna MD 12/31/2023 0942 Implant(s): * No implants in log * Drain(s): Closed/Suction Drain Right;Anterior Neck 7 Fr. (Active) Closed/Suction Drain Left;Anterior Neck 7 Fr. (Active) Wound(s): Wound 12/31/23 1 Cervical Anterior (Active) Wound Closure Steri-strip 12/08/23 0004 Hector Cerna MD 12/31/2023 10:11 AM [id number] Attending History and physical note* Hector Cerna MD - 12/31/2023 7:29 AM EST INTERVAL HISTORY AND PHYSICAL Patient Name: Toni Jacobson Admit Date: 1310104 MR #: [id number] : 1990 The H&P has been reviewed and the patient has been examined. I concur with the findings of the H&P. There are no significant changes. It is appropriate to proceed with the planned procedure. Hector Cerna MD 12/31/2023 7:29 AM Source Note - Hector Cerna MD - 12/08/2023 1:38 PM EST [facility] [address] [facility] [address] [facility] [id number] Dept: [phone] Hector Cerna MD Tnoi Jacobson 33 y.o. female Patient presents with a chief complaint of Follow-up (2 week follow up FNA biopsy) Temp 98.3 F (36.8 C) (Temporal) Ht 5' 3 Wt 65.6 kg (144 lb 11.2 oz) BMI 25.63 kg/m History of Presenting Illness: The patient/caregiver reports a history of complaint with the following features: Onset: started in May of this year Timing: abrupt onset initially, reduced after aspiration, but has recurred since drainage Duration: 8 months Quality: low anterior neck swelling Location: anterior neck Severity: pain none currently Risk factors: recent Alleviating factors: noting makes it better Aggravating factors: nothing makes it worse Associated factors: weight loss, but just , insomnia, occasional palpitations, anxiety Review of systems covering 10 systems is reviewed and pertinent positives and negatives are noted as above. Past Medical History: Diagnosis Date Goiter Rubella non-immune status, antepartum 10/11/2019 Current Outpatient Medications: ciprofloxacin HCl (CILOXAN) 0.3 % ophthalmic solution, INSTILL 1 DROP IN RIGHT EYE FOUR TIMES DAILYFOR 7 DAYS, Disp: , Rfl: ibuprofen (ADVIL,MOTRIN) 600 MG tablet, , Disp: , Rfl: levonorgestreL (MIRENA) 21 mcg/24 hours (8 yrs) 52 mg IUD, 1 (one) each by Intrauterine route continuous ., Disp: , Rfl: magnesium oxide (MAG-OX) 400 mg (241.3 mg magnesium) tablet, Take 1 (one) tablet (400 mg total) by mouth 2 (two) times a day ., Disp: , Rfl: NIFEdipine (PROCARDIA XL) 30 MG 24 hr tablet, Take 1 (one) tablet (30 mg total) by mouth daily ., Disp: , Rfl: No Known Allergies Past Surgical History: Procedure Laterality Date TOOTH EXTRACTION Social History Socioeconomic History Marital status: Single Tobacco Use Smoking status: Former Packs/day: 0 Types: Cigarettes Smokeless tobacco: Never Vaping Use Vaping Use: Never used Substance and Sexual Activity Alcohol use: Not Currently Drug use: Never Sexual activity: Yes Partners: Male Social Determinants of Health Food Insecurity: No Food Insecurity (02/18/2022) Hunger Vital Sign Worried About Running Out of Food in the Last Year: Never true Ran Out of Food in the Last Year: Never true Social Connections: Unknown (02/18/2022) Social Connection and Isolation Panel [NHANES] Frequency of Social Gatherings with Friends and Family: Twice a week Family History Problem Relation Age of Onset Thyroid nodules Mother Hypertension Father PHYSICAL EXAM: The patient was examined today 12/08/2023 with findings as follows: CONSTITUTIONAL: General Appearance: well-appearing, nontoxic, alert, no acute distress Communication: understanding at normal conversational tones, normal voicing, speech intelligible HEAD/FACE: Head: atraumatic, normocephalic, no lesions Facial Inspection: no lesions, healthy skin Facial Strength: motor strength normal, symmetric strength, symmetric movement Sinuses: no sinus tenderness Salivary Glands: no enlargements of parotid glands, no tenderness of parotid glands, no masses of parotid glands, clear salivary flow on palpation from Stensen's ducts, no duct stones of Stensen's duct, no enlargement of submandibular glands, no tenderness of submandibular glands, no masses of subma ndibular glands, clear salivary flow from [place]'s ducts, no stones of [place]'s ducts Temporomandibular Joint: no crepitus with motion, no tenderness on palpation, no trismus, motion symmetric EYES: Pupils: PERRLA, extra-ocular movements intact, no nystagmus, sclera white, no redness of eyes, no watering of eyes EARS: Bilateral External Ears: no pits, no tags Right External Ear: normally formed, no lesions, no mastoid tenderness Left External Ear: normally formed, no lesions, no mastoid tenderness Right External Auditory Canal: normal, healthy skin, no obstructing cerumen, no discharge Left External Auditory Canal: normal, healthy skin, no obstructing cerumen, no discharge Right Tympanic Membrane: normal landmarks, translucent, mobile to pneumatic otoscopy, no perforation Left Tympanic Membrane: normal landmarks, translucent, mobile to pneumatic otoscopy, no perforation Hearing: intact to spoken voice NOSE: Nasal Skin: no lesions, no lacerations, no scars Nasal Dorsum: symmetric with no visible or palpable deformities Nasal Tip: normal symmetric nasal tip, normal nasal valves Nasal Mucosa: normal, pink and moist Septum: not markedly deformed, midline, no exposed vessels, no bleeding, no septal granuloma Turbinates: normal size and conformation Nasopharynx: normal ORAL CAVITY/MOUTH: Lips, teeth, gums: normal lips, normal gums, dentition intact, no dental pain on palpation Oral Mucosa: normal, moist, no lesions Palate: normal hard palate, normal soft palate, symmetric palatal elevation Floor of Mouth: normal floor of mouth Tongue: normal tongue, no lesions, no edema, no masses, normal mucosa, mobile Tonsils: normal tonsils, symmetric, no lesions Posterior pharynx: normal NECK: Neck: no masses, trachea midline, normal range of motion, no cysts or pits, no tenderness to palpation Thyroid: 4 cm right mass, no tenderness, no nodules LYMPH NODES: Cervical: no palpable lymph node enlargement RESPIRATORY: Inspection/Auscultation: good air movement, chest expands symmetrically, normal breath sounds, no wheezing, no stridor CARDIOVASCULAR SYSTEM: Auscultation: regular rate and rhythm, carotid pulse normal, no carotid thrills, no carotid bruits Observation/Palpation of Peripheral Vascular System: no varicosities, no cyanosis, no edema SKIN: General Appearance: no lesions, warm and dry, normal turgor, no bruising NEUROLOGICAL SYSTEM: Orientation: oriented to time, oriented to place, oriented to person Cranial Nerves: Cranial Nerves II-XII intact, normal facial movement PSYCHIATRIC: Mood and affect: normal mood, normal affect Assessment and Plan: She presents with persistent thyroid enlargement and recurrent of the cyst drained last visit. Biopsy showed fluid only and ws non-diagnostic. She is desirous of surgical resection at this time with total thyroidectomy preferred as she has bilateral nodular disease. We have discussed that this willrequire thyroid hormone replacement therapy and she is agreeable. Surgical treatment is recommended upon review of the patient's history, clinical presentation, exam, and available testing and laboratory data. The risks, alternatives, potential complications, and benefits of surgery are discussed at length. The surgical procedure, pre-operative preparation, and post-operative course are discussed. Any questions are answered to the patient's and/or caregiver's satisfaction and they are agreeable to proceed. An informational sheet covering this information is also provided. Witnessed informed surgical consent is signed in the office. The patient and/or caregiver is able to state an understanding of these recommendations and is agreeable to the treatment plan . 1. Goiter Case Request Operating Room: Total thyroidectomy, possible neck dissection Vital signs Height and weight Vital signs Insert peripheral IV lidocaine 10 mg/mL (1 %) injection 0.2 mL POC , Urine 2. Hyperthyroidism Case Request Operating Room: Total thyroidectomy, possible neck dissection No follow-ups on file. The patient and/or caregiver is to notify the office if no improvement or worsening of symptoms is noted prior to the scheduled follow-up for sooner evaluation. The patient and/or caregiver is able to state an understanding of these recommendations and is agreeable to the treatment plan. --Hector Cerna MD on 12/08/2023 at 1:45 PM An electronic signature was used to authenticate this note. [id number] History and physical note* Hector Cerna MD - 12/31/2023 7:29 AM EST INTERVAL HISTORY AND PHYSICAL Patient Name: Toni Jacobson Admit Date: 1310104 MR #: [id number] : 1990 The H&P has been reviewed and the patient has been examined. I concur with the findings of the H&P. There are no significant changes. It is appropriate to proceed with the planned procedure. Hector Cerna MD 12/31/2023 7:29 AM Source Note - Hector Ceran MD - 12/08/2023 1:38 PM EST [facility] [address] [facility] [address] [facility] [address] Dept: [phone] MD Vidal Mcdonoughsima Shimon 33 y.o. female Patient presents with a chief complaint of Follow-up (2 week follow up FNA biopsy) Temp 98.3 F (36.8 C) (Temporal) Ht 5' 3 Wt 65.6 kg (144 lb 11.2 oz) BMI 25.63 kg/m History of Presenting Illness: The patient/caregiver reports a history of complaint with the following features: Onset: started in May of this year Timing: abrupt onset initially, reduced after aspiration, but has recurred since drainage Duration: 8 months Quality: low anterior neck swelling Location: anterior neck Severity: pain none currently Risk factors: recent Alleviating factors: noting makes it better Aggravating factors: nothing makes it worse Associated factors: weight loss, but just , insomnia, occasional palpitations, anxiety Review of systems covering 10 systems is reviewed and pertinent positives and negatives are noted as above. Past Medical History: Diagnosis Date Goiter Rubella non-immune status, antepartum 10/11/2019 Current Outpatient Medications: ciprofloxacin HCl (CILOXAN) 0.3 % ophthalmic solution, INSTILL 1 DROP IN RIGHT EYE FOUR TIMES DAILYFOR 7 DAYS, Disp: , Rfl: ibuprofen (ADVIL,MOTRIN) 600 MG tablet, , Disp: , Rfl: levonorgestreL (MIRENA) 21 mcg/24 hours (8 yrs) 52 mg IUD, 1 (one) each by Intrauterine route continuous ., Disp: , Rfl: magnesium oxide (MAG-OX) 400 mg (241.3 mg magnesium) tablet, Take 1 (one) tablet (400 mg total) by mouth 2 (two) times a day ., Disp: , Rfl: NIFEdipine (PROCARDIA XL) 30 MG 24 hr tablet, Take 1 (one) tablet (30 mg total) by mouth daily ., Disp: , Rfl: No Known Allergies Past Surgical History: Procedure Laterality Date TOOTH EXTRACTION Social History Socioeconomic History Marital status: Single Tobacco Use Smoking status: Former Packs/day: 0 Types: Cigarettes Smokeless tobacco: Never Vaping Use Vaping Use: Never used Substance and Sexual Activity Alcohol use: Not Currently Drug use: Never Sexual activity: Yes Partners: Male Social Determinants of Health Food Insecurity: No Food Insecurity (02/18/2022) Hunger Vital Sign Worried About Running Out of Food in the Last Year: Never true Ran Out of Food in the Last Year: Never true Social Connections: Unknown (02/18/2022) Social Connection and Isolation Panel [NHANES] Frequency of Social Gatherings with Friends and Family: Twice a week Family History Problem Relation Age of Onset Thyroid nodules Mother Hypertension Father PHYSICAL EXAM: The patient was examined today 12/08/2023 with findings as follows: CONSTITUTIONAL: General Appearance: well-appearing, nontoxic, alert, no acute distress Communication: understanding at normal conversational tones, normal voicing, speech intelligible HEAD/FACE: Head: atraumatic, normocephalic, no lesions Facial Inspection: no lesions, healthy skin Facial Strength: motor strength normal, symmetric strength, symmetric movement Sinuses: no sinus tenderness Salivary Glands: no enlargements of parotid glands, no tenderness of parotid glands, no masses of parotid glands, clear salivary flow on palpation from Stensen's ducts, no duct stones of Stensen's duct, no enlargement of submandibular glands, no tenderness of submandibular glands, no masses of subma ndibular glands, clear salivary flow from [place]'s ducts, no stones of [place]'s ducts Temporomandibular Joint: no crepitus with motion, no tenderness on palpation, no trismus, motion symmetric EYES: Pupils: PERRLA, extra-ocular movements intact, no nystagmus, sclera white, no redness of eyes, no watering of eyes EARS: Bilateral External Ears: no pits, no tags Right External Ear: normally formed, no lesions, no mastoid tenderness Left External Ear: normally formed, no lesions, no mastoid tenderness Right External Auditory Canal: normal, healthy skin, no obstructing cerumen, no discharge Left External Auditory Canal: normal, healthy skin, no obstructing cerumen, no discharge Right Tympanic Membrane: normal landmarks, translucent, mobile to pneumatic otoscopy, no perforation Left Tympanic Membrane: normal landmarks, translucent, mobile to pneumatic otoscopy, no perforation Hearing: intact to spoken voice NOSE: Nasal Skin: no lesions, no lacerations, no scars Nasal Dorsum: symmetric with no visible or palpable deformities Nasal Tip: normal symmetric nasal tip, normal nasal valves Nasal Mucosa: normal, pink and moist Septum: not markedly deformed, midline, no exposed vessels, no bleeding, no septal granuloma Turbinates: normal size and conformation Nasopharynx: normal ORAL CAVITY/MOUTH: Lips, teeth, gums: normal lips, normal gums, dentition intact, no dental pain on palpation Oral Mucosa: normal, moist, no lesions Palate: normal hard palate, normal soft palate, symmetric palatal elevation Floor of Mouth: normal floor of mouth Tongue: normal tongue, no lesions, no edema, no masses, normal mucosa, mobile Tonsils: normal tonsils, symmetric, no lesions Posterior pharynx: normal NECK: Neck: no masses, trachea midline, normal range of motion, no cysts or pits, no tenderness to palpation Thyroid: 4 cm right mass, no tenderness, no nodules LYMPH NODES: Cervical: no palpable lymph node enlargement RESPIRATORY: Inspection/Auscultation: good air movement, chest expands symmetrically, normal breath sounds, no wheezing, no stridor CARDIOVASCULAR SYSTEM: Auscultation: regular rate and rhythm, carotid pulse normal, no carotid thrills, no carotid bruits Observation/Palpation of Peripheral Vascular System: no varicosities, no cyanosis, no edema SKIN: General Appearance: no lesions, warm and dry, normal turgor, no bruising NEUROLOGICAL SYSTEM: Orientation: oriented to time, oriented to place, oriented to person Cranial Nerves: Cranial Nerves II-XII intact, normal facial movement PSYCHIATRIC: Mood and affect: normal mood, normal affect Assessment and Plan: She presents with persistent thyroid enlargement and recurrent of the cyst drained last visit. Biopsy showed fluid only and ws non-diagnostic. She is desirous of surgical resection at this time with total thyroidectomy preferred as she has bilateral nodular disease. We have discussed that this willrequire thyroid hormone replacement therapy and she is agreeable. Surgical treatment is recommended upon review of the patient's history, clinical presentation, exam, and available testing and laboratory data. The risks, alternatives, potential complications, and benefits of surgery are discussed at length. The surgical procedure, pre-operative preparation, and post-operative course are discussed. Any questions are answered to the patient's and/or caregiver's satisfaction and they are agreeable to proceed. An informational sheet covering this information is also provided. Witnessed informed surgical consent is signed in the office. The patient and/or caregiver is able to state an understanding of these recommendations and is agreeable to the treatment plan . 1. Goiter Case Request Operating Room: Total thyroidectomy, possible neck dissection Vital signs Height and weight Vital signs Insert peripheral IV lidocaine 10 mg/mL (1 %) injection 0.2 mL POC , Urine 2. Hyperthyroidism Case Request Operating Room: Total thyroidectomy, possible neck dissection No follow-ups on file. The patient and/or caregiver is to notify the office if no improvement or worsening of symptoms is noted prior to the scheduled follow-up for sooner evaluation. The patient and/or caregiver is able to state an understanding of these recommendations and is agreeable to the treatment plan. --Hector Cerna MD on 12/08/2023 at 1:45 PM An electronic signature was used to authenticate this note. documented in this [id number] History of Present illness Narrative* Vandana Woodward, CONCHITA - 12/15/2023 9:00 AM EST Pre-Operative H&P Assessment and Plan Goiter Pt scheduled to undergo a Total thyroidectomy, possible neck dissection with Dr. Cerna on 12/17/2023 Hyperthyroidism Lab Results Component Value Date TSH 0.09 (L) 08/19/2023 T4 is normal. Per patient no medical therapy prescribed at this time as resolution will be to have thyroid removed. Taccarrie does endorse recent increase in blood pressure readings. I have ordered a repeat TSH with reflux T4 to reassess TSH status. TSH today is recorded at 0.35 Pre-op examination VALDEZ score indicates a low risk for OR or cardiac arrest, intraoperatively or up to 30 days post-op. Pt denies chest pain, abnormal SOB with exertion, palpitations, syncope or near syncopal episodes, PND, orthopnea, or pedal edema. METS greater than 4. Per 2014 ACC/AHA guidelines, no further cardiac testing is indicated. Apfel score of 3; 61% 24-hour risk of PONV. Pt denies previous complications with anesthesia According to the stop bang assessment, the patient would be considered no risk for FABIANA. Vital signs are within acceptable limits for surgery. BMP is pending. Pt denies cardiopulmonary complaints. TSH with reflux T4 is pending. Pt would be considered an acceptable risk for surgery. Chief Complaint Patient presents with Pre-operative Medical Risk Stratification History of Present Illness Toni Jacobson is a 33 y.o. female who presents for preoperative medical risk stratification consult at the request of Dr. Cerna prior to Total thyroidectomy, possible neck dissection. Toni has a past medical history that consists of goiter and hyperthyroidism. She dnies previous complications with anesthesia. Toni denies any pulmonary complaints. She does report higher blood pressures than usual as of recent. I have ordered a TSH with reflux T4 to reassess TSH status prior to anesthesia. Pt has been given preoperative medication instructions. Please see below regarding status of active medical conditions and assessment and plan regarding details of preoperative medical risk stratification. Past Medical History: Diagnosis Date Goiter Rubella non-immune status, antepartum 10/11/2019 No past medical history pertinent negatives. Past Surgical History: Procedure Laterality Date OTHER surgery to remove the placenta - 05/2023 TOOTH EXTRACTION Social History Tobacco Use Smoking status: Former Packs/day: 0 Types: Cigarettes Quit date: 10/2023 Years since quittin.1 Smokeless tobacco: Never Substance Use Topics Alcohol use: Not Currently Family History Problem Relation Age of Onset Thyroid nodules Mother Hypertension Father No Known Problems Sister Prior to Admission medications taking for visit date 12/15/23 Medication Sig Taking? Discontinued? ibuprofen (ADVIL,MOTRIN) 600 MG tablet PRN . Yes levonorgestreL (MIRENA) 21 mcg/24 hours (8 yrs) 52 mg IUD 1 (one) each by Intrauterine route continuous . Yes ciprofloxacin HCl (CILOXAN) 0.3 % ophthalmic solution INSTILL 1 DROP IN RIGHT EYE FOUR TIMES DAILY FOR 7 DAYS Yes magnesium oxide (MAG-OX) 400 mg (241.3 mg magnesium) tablet Take 1 (one) tablet (400 mg total) by mouth 2 (two) times a day . Yes NIFEdipine (PROCARDIA XL) 30 MG 24 hr tablet Take 1 (one) tablet (30 mg total) by mouth daily . Yes No Known Allergies Review of Systems Constitution: (negative) HENT: (negative) Eyes: (negative) Respiratory: (negative) Cardiovascular: (negative) - Exercise capacity: Greater than 4 METS Gastrointestinal: (negative) Genitourinary: (negative) Musculoskeletal: (negative) Skin: (negative) Neurological: (negative) Hematological: (negative) Physical Exam BP 133/84 Pulse 83 Ht 5' 3 Wt 64.9 kg (143 lb) SpO2 98% BMI 25.33 kg/m Constitutional: She is oriented to person, place, and time. She appears well developed and well-nourished. Skin: Skin is warm, dry and intact. Eyes: Conjunctivae and EOM are normal. Pupils are equal, round, and reactive to light. HENT: Right Ear: External ear normal. Left Ear: External ear normal. Nose: Nose normal. Mouth/Throat: Abnormal dentition. Neck: Normal range of motion. No tracheal deviation present. Cardiovascular: Normal rate and regular rhythm. Pulmonary/Chest: Effort normal and breath sounds normal. Abdominal: Soft. no tenderness Musculoskeletal: Normal range of motion. She exhibits no edema. Neurological: She is alert and oriented to person, place, and time. Psychiatric: She has a normal mood and affect. Her behavior is normal. Cognition and memory are normal. Data Preprocedure Sleep Apnea Assessment - No Risk (0/3) Sleep Apnea in the patient's Active Problem List or Medical History: no 1. History of apparent airway obstruction during sleep: (1 point for this category) Do you snore frequently, or snore loud enough to be heard through a closed door?: no Do you awaken from sleep with a choking sensation or have periods during sleep when someone has observed you pausing between breaths?: no 2. Somnolence of the patient: (1 point for this category) Do you find yourself frequently sleepy despite adequate hours of sleep the night before?: no Do you fall asleep easily while: watching TV, reading, riding in or driving a car?: no 3. Predisposing physician characteristics: (1 point for this category, 2 points if the BMI ? 40) BMI (Calculated): 25.3 Neck Circumference (inches): 12.5 inches Recent Results (from the past 1825 days) NM THYROID UPTAKE AND SCAN 11/05/2023 (Final) Status: Normal Narrative EXAMINATION: RADIONUCLIDE THYROID UPTAKE AND SCAN COMPARISON: Ultrasound of the thyroid gland dated 09/02/2023. HISTORY: ORDERING SYSTEM PROVIDED HISTORY: suppressed tsh with normal T4, TECHNOLOGIST PROVIDED HISTORY: Illness/Other Reason for exam: suppressed tsh with normal T4, Hyperthyroidism Encounter Type: Unknown Additional signs and symptoms: na ORDERING SYSTEM PROVIDED DIAGNOSIS CODES: E05.90 Hyperthyroidism TRACER DOSE: IODINE I-123 SODIUM IODIDE, DIAGNOSTIC, PER 100 TO 999 MICROCURIES - 261 microcuries FINDINGS: Four-hour uptake = 9.2%. Normal range = 6-18%. Twenty-four hour uptake = 30.7%. Normal range = 10-35%. There is only subtle photopenia at the level of the dominant complex cystic lesion seen at the lower pole of the thyroid gland on the recently performed ultrasound. Otherwise, distribution of tracer is homogeneous and within normal limits throughout the thyroid gland. No hyperfunctioning hot nodules are seen. Impression 1. Normal 4 and 24 hour uptake values as above. 2. Mild photopenia is seen at the lower pole of the right thyroid lobe corresponding to the complexcystic lesion seen by ultrasound. 3. Despite the clinical suspicion for hyperthyroidism, no hyperfunctioning hot nodule is identified. DPZ/alt Workstation ID: [id number] documented in this [id number] Evaluation + Plan note* Assessment & Plan Note - Vandana Woodward CNP - 12/15/2023 8:44 AM EST Associated Problem(s): Pre-op examination VALDEZ score indicates a low risk for OR or cardiac arrest, intraoperatively or up to 30 days post-op. Pt denies chest pain, abnormal SOB with exertion, palpitations, syncope or near syncopal episodes, PND, orthopnea, or pedal edema. METS greater than 4. Per 2014 ACC/AHA guidelines, no further cardiac testing is indicated. Apfel score of 3; 61% 24-hour risk of PONV. Pt denies previous complications with anesthesia According to the stop bang assessment, the patient would be considered no risk for FABIANA. Vital signs are within acceptable limits for surgery. BMP is pending. Pt denies cardiopulmonary complaints. TSH with reflux T4 is pending. Pt would be considered an acceptable risk for surgery. [id number] Miscellaneous Notes* Assessment & Plan Note - Vandana Woodward CNP - 12/15/2023 8:44 AM ESTAssociated Problem(s): Pre-op examination VALDEZ score indicates a low risk for OR or cardiac arrest, intraoperatively or up to 30 days post-op. Pt denies chest pain, abnormal SOB with exertion, palpitations, syncope or near syncopal episodes, PND, orthopnea, or pedal edema. METS greater than 4. Per 2014 ACC/AHA guidelines, no further cardiac testing is indicated. Apfel score of 3; 61% 24-hour risk of PONV. Pt denies previous complications with anesthesia According to the stop bang assessment, the patient would be considered no risk for FABIANA. Vital signs are within acceptable limits for surgery. BMP is pending. Pt denies cardiopulmonary complaints. TSH with reflux T4 is pending. Pt would be considered an acceptable risk for surgery. * Assessment & Plan Note - Vandana Woodward CNP - 12/15/2023 8:43 AM EST Associated Problem(s): Hyperthyroidism Lab Results Component Value Date TSH 0.09 (L) 08/19/2023 T4 is normal. Per patient no medical therapy prescribed at this time as resolution will be to have thyroid removed. Taccarrie does endorse recent increase in blood pressure readings. I have ordered a repeat TSH with reflux T4 to reassess TSH status. TSH today is recorded at 0.35 * Assessment & Plan Note - Vandana Woodward CNP - 12/15/2023 8:28 AM EST Associated Problem(s): Goiter Pt scheduled to undergo a Total thyroidectomy, possible neck dissection with Dr. Cerna on 12/17/2023 documented in this [id number] Evaluation + Plan note* Assessment & Plan Note - Vandana Woodward CNP - 12/15/2023 8:43 AM EST Associated Problem(s): Hyperthyroidism Lab Results Component Value Date TSH 0.09 (L) 08/19/2023 T4 is normal. Per patient no medical therapy prescribed at this time as resolution will be to have thyroid removed. Benycarrie does endorse recent increase in blood pressure readings. I have ordered a repeat TSH with reflux T4 to reassess TSH status. TSH today is recorded at 0.35 [id number] Evaluation + Plan note* Assessment & Plan Note - Vandana Woodward CNP - 12/15/2023 8:28 AM ESTAssociated Problem(s): Goiter Pt scheduled to undergo a Total thyroidectomy, possible neck dissection with Dr. Cerna on 12/17/2023 [id number] Instructions* Patient Instructions* Vandana Woodward CNP - 12/15/2023 8:27 AM EST Preoperative Medication Instructions In preparation for surgery please continue all of your current medications with the following changes: Active Home Medications Medication Sig Take Last Dose On Take Morning of Surgery Comment(s) ibuprofen (ADVIL,MOTRIN) 600 MG tablet PRN . levonorgestreL (MIRENA) 21 mcg/24 hours (8 yrs) 52 mg IUD 1 (one) each by Intrauterine route continuous . STOP ( medications that contain aspirin, such as [place], Pepto-Bismol, Anacin), antiinflammatory medications such as Advil, Motrin, Ibuprofen, Naproxen, Aleve, [place], Pepto-Bismol, Anacin, Diclofenac, Voltaren, Daypro, Etodolac, Ketoprofen, Piroxicam, Relafen, Nabumetone, etc. Also disc ontinue Vitamin C, Vitamin E, [place]-3 Fatty Acid, Fish Oil or Lovaza, and all herbal medications ASDIRECTED BY SURGEON. Tylenol (acetaminophen) is acceptable(unless you have an allergy to this medication ), but be careful to follow the label directions and do not use with other pain medications. On the morning of surgery, with as little water as possible, ONLY take the medications listed abovein the column Take the morning of surgery. If you are using Eye Drops or Inhalers, please bring them to the hospital. Patient Instructions for [facility]: Prior to surgery: Surgeon's office will contact you with the scheduled time of your surgery. You may use the [employer] parking available at the Main Entrance One family member may accompany you back into the Pre-Op Area. Do not eat or drink anything after midnight or as directed, including gum, mints, and cough drops. No smoking after midnight. No chewing tobacco after midnight. No alcohol 24 hours prior to your surgery. Please take any medications you have been instructed to take the morning of your surgery with smallsips of water. Please be sure to wear comfortable, appropriate clothing. Please remove all jewelry and piercing's, including wedding rings. Leave all valuable items at home. Shower using anti-bacterial soap or as advised by your Surgeon's office Do not apply any makeup or lotions. Remove all nail icelandic for surgeries involving extremities. Please remember to bring both your insurance card and a photo ID with you on the day of surgery. After your surgery: If you are having outpatient surgery - you must have a licensed regional owner operator truck driver to take you home. The expectation is that this regional owner operator truck driver will remain at the hospital for the duration of your procedure. You are advised to have a family member with you for at least 24 hours after being under Anesthesia. If you have sleep apnea and have a CPAP/BIPAP mask, please bring it with you the day of surgery. documented in this [id number] Instructions* Patient Instructions* Hector Cerna MD - 12/08/2023 1:45 PM EST THYROIDECTOMY The thyroid gland is found in the neck, just above the clavicles. In health it is small, flat, and soft and divided into two lobes with a narrow band of tissue connecting the two sides. The thyroid gland secretes a hormone that regulates metabolism, or how fast your body s engine runs. Several diseases of the thyroid can occur that may require surgery. If the entire thyroid gland is removed, a medication to replace the thyroid hormone will need to be taken on a daily basis. REASONS FOR SURGERY- How is the decision made? Removal of the thyroid gland is a decision to be made between the surgeon and the patient or family. Only one half or the entire gland may be removed. Generally, removal is recommended when one or more of the following symptoms or findings are noted: ? A biopsy has found cancer, or cells suspicious for cancer ? A nodule greater than 4 centimeters, or rapid growth of a nodule ? Hoarse voice in the setting of a thyroid nodule ? Suspicious nodules in a patient age over 40 years or under 20, and male gender, or history of radiation exposure ? The gland has become so enlarged that it causes problems with breathing or swallowing ? Recurrent infection of the thyroid gland ? Other problems as discussed with your doctor SURGICAL TREATMENT- What are the Risks, Alternatives, Potential Complications, and Benefits? ? Risks- The risks from thyroidectomy include injury to the nerve of voicing resulting in hoarse voice, injury to the parathyroid glands resulting in low calcium levels, temporary or permanent numbness of the upper neck, an unfavorable scar, and bleeding or infection at the surgical site. There is also a small risk of complications from anesthesia. If surgery is performed for cancerous lesions additional treatment with radiation or chemotherapy may be needed. ? Alternatives- Non-cancerous tumors of the thyroid gland may be observed, and some cancerous lesions may be treated with radiation or treatment other than surgery. Sometimes a decision to not have treatment can have serious consequences that you should discuss with your doctor. ? Complications- The most severe complication from removal of all of the parathyroid glands can result in a potentially life threatening drop in calcium levels in the blood. This can require lifelongneed for calcium supplements. Also, if both nerves to the vocal cords become injured, severe difficulty breathing may occur and require the placement of a tracheostomy (breathing tube) in the neck. Severe bleeding resulting in compression of the breathing tube, the need for a blood transfusion, or is very uncommon. Notify your doctor immediately if rapid swelling or bleeding at the surgery site is noted after surgery. ? Benefits- Most thyroid surgery is without complications and with a good cosmetic outcome. Successin relieving most conditions is excellent. RECOVERY- What should I expect? Recovery generally lasts 1-2 weeks. Expect to spend at least the first night in the hospital and for a drain to remove fluid from under the incision to be placed. Most people can go home the next dayafter surgery when the drain output decreases. Once you have gone home, common events in the recovery period and expectations of what is normal are listed below. Call your doctor if you have any questions or concerns that are not answered here. ? Pain- Pain is an expected part of recovery after surgery. Pain may be noted at the incision, or with swallowing or speaking. This is treated with oral pain medications. Over the counter medicationssuch as Tylenol?, Aspirin?, Advil?, Motrin?, Aleve?, and ibuprofen are generally adequate for relief of pain. Take only the medication prescribed by your doctor. If pain worsens or is not relieved bythe pain medication taken as prescribed, call your doctor. ? Swelling or bleeding at the incision site- This is not normal. If you notice this, please call your doctor immediately. ? Numbness or tingling of the face, fingers, or toes- This is not normal and may be a symptom of low calcium levels. If you experience these symptoms notify your doctor. Other signs of low calcium include a racing heartbeat, anxiety, diarrhea, or malaise. ? Nausea and vomiting- These are usually due to the effects of anesthesia and should subside in thefirst day or two. If they continue, are related to taking the pain medication, or contain blood, notify your doctor. ? Fever- A low grade temperature of less than 102 F for a few days after surgery is normal. Notify your doctor for fever above this, or one that persists for greater than 3 days. ? Eating and drinking- You may resume your regular diet after surgery. ? Activity- It is recommended that heavy lifting, exertion, and other strenuous activity be avoidedfor one to two weeks after surgery. Do not drive or operate machinery while on pain medication. ? MEDICATIONS- Ask your doctor about resuming your home medications. Do not take herbal medicationswithout asking your doctor as these often have blood thinning properties which can increase the risk of bleeding. CONTINUING CARE- What additional care do I need? After you are discharged from the hospital, your doctor will see you for follow- up evaluation in approximately two weeks after surgery unless another time has been arranged. Call the office if an appointment has not been previously scheduled. You will likely be seen for several visits to ensure that healing is progressing well and that no complications have been encountered. Testing to determine the proper dose of thyroid hormone replacement will also be needed if the whole gland has been removed. Depending on the reason that surgery was performed, continuing follow-up or other treatment may be needed. NOTICE: THIS DOCUMENT IS INTENDED SOLELY FOR PATIENT EDUCATIONAL PURPOSES AND IS PROVIDED A COURTESY TO PATIENTS OF DR. HECTOR CERNA MD. IT IS NOT INTENDED A SUBSTITUTE FOR PROFESSIONAL MEDICAL CARE OR ADVICE. THE PATIENT SHOULD SEEK ADVICE FROM THE PHYSICIAN IF THERE ARE ANY QUESTIONS ABOUT THE CONTENTS OR DIRECTIONS PROVIDED IN THIS DOCUMENT documented in this [id number] History of Present illness Narrative* Hector Cerna MD - 12/08/2023 1:38 PM EST [facility] [address] [facility] [address] [facility] [address] Dept: [phone] MD Toni Mcdonough 33 y.o. female Patient presents with a chief complaint of Follow-up (2 week follow up FNA biopsy) Temp 98.3 F (36.8 C) (Temporal) Ht 5' 3 Wt 65.6 kg (144 lb 11.2 oz) BMI 25.63 kg/m History of Presenting Illness: The patient/caregiver reports a history of complaint with the following features: Onset: started in May of this year Timing: abrupt onset initially, reduced after aspiration, but has recurred since drainage Duration: 8 months Quality: low anterior neck swelling Location: anterior neck Severity: pain none currently Risk factors: recent Alleviating factors: noting makes it better Aggravating factors: nothing makes it worse Associated factors: weight loss, but just , insomnia, occasional palpitations, anxiety Review of systems covering 10 systems is reviewed and pertinent positives and negatives are noted as above. Past Medical History: Diagnosis Date Goiter Rubella non-immune status, antepartum 10/11/2019 Current Outpatient Medications: ciprofloxacin HCl (CILOXAN) 0.3 % ophthalmic solution, INSTILL 1 DROP IN RIGHT EYE FOUR TIMES DAILYFOR 7 DAYS, Disp: , Rfl: ibuprofen (ADVIL,MOTRIN) 600 MG tablet, , Disp: , Rfl: levonorgestreL (MIRENA) 21 mcg/24 hours (8 yrs) 52 mg IUD, 1 (one) each by Intrauterine route continuous ., Disp: , Rfl: magnesium oxide (MAG-OX) 400 mg (241.3 mg magnesium) tablet, Take 1 (one) tablet (400 mg total) by mouth 2 (two) times a day ., Disp: , Rfl: NIFEdipine (PROCARDIA XL) 30 MG 24 hr tablet, Take 1 (one) tablet (30 mg total) by mouth daily ., Disp: , Rfl: No Known Allergies Past Surgical History: Procedure Laterality Date TOOTH EXTRACTION Social History Socioeconomic History Marital status: Single Tobacco Use Smoking status: Former Packs/day: 0 Types: Cigarettes Smokeless tobacco: Never Vaping Use Vaping Use: Never used Substance and Sexual Activity Alcohol use: Not Currently Drug use: Never Sexual activity: Yes Partners: Male Social Determinants of Health Food Insecurity: No Food Insecurity (02/18/2022) Hunger Vital Sign Worried About Running Out of Food in the Last Year: Never true Ran Out of Food in the Last Year: Never true Social Connections: Unknown (02/18/2022) Social Connection and Isolation Panel [NHANES] Frequency of Social Gatherings with Friends and Family: Twice a week Family History Problem Relation Age of Onset Thyroid nodules Mother Hypertension Father PHYSICAL EXAM: The patient was examined today 12/08/2023 with findings as follows: CONSTITUTIONAL: General Appearance: well-appearing, nontoxic, alert, no acute distress Communication: understanding at normal conversational tones, normal voicing, speech intelligible HEAD/FACE: Head: atraumatic, normocephalic, no lesions Facial Inspection: no lesions, healthy skin Facial Strength: motor strength normal, symmetric strength, symmetric movement Sinuses: no sinus tenderness Salivary Glands: no enlargements of parotid glands, no tenderness of parotid glands, no masses of parotid glands, clear salivary flow on palpation from Stensen's ducts, no duct stones of Stensen's duct, no enlargement of submandibular glands, no tenderness of submandibular glands, no masses of subma ndibular glands, clear salivary flow from [place]'s ducts, no stones of Margarette's ducts Temporomandibular Joint: no crepitus with motion, no tenderness on palpation, no trismus, motion symmetric EYES: Pupils: PERRLA, extra-ocular movements intact, no nystagmus, sclera white, no redness of eyes, no watering of eyes EARS: Bilateral External Ears: no pits, no tags Right External Ear: normally formed, no lesions, no mastoid tenderness Left External Ear: normally formed, no lesions, no mastoid tenderness Right External Auditory Canal: normal, healthy skin, no obstructing cerumen, no discharge Left External Auditory Canal: normal, healthy skin, no obstructing cerumen, no discharge Right Tympanic Membrane: normal landmarks, translucent, mobile to pneumatic otoscopy, no perforation Left Tympanic Membrane: normal landmarks, translucent, mobile to pneumatic otoscopy, no perforation Hearing: intact to spoken voice NOSE: Nasal Skin: no lesions, no lacerations, no scars Nasal Dorsum: symmetric with no visible or palpable deformities Nasal Tip: normal symmetric nasal tip, normal nasal valves Nasal Mucosa: normal, pink and moist Septum: not markedly deformed, midline, no exposed vessels, no bleeding, no septal granuloma Turbinates: normal size and conformation Nasopharynx: normal ORAL CAVITY/MOUTH: Lips, teeth, gums: normal lips, normal gums, dentition intact, no dental pain on palpation Oral Mucosa: normal, moist, no lesions Palate: normal hard palate, normal soft palate, symmetric palatal elevation Floor of Mouth: normal floor of mouth Tongue: normal tongue, no lesions, no edema, no masses, normal mucosa, mobile Tonsils: normal tonsils, symmetric, no lesions Posterior pharynx: normal NECK: Neck: no masses, trachea midline, normal range of motion, no cysts or pits, no tenderness to palpation Thyroid: 4 cm right mass, no tenderness, no nodules LYMPH NODES: Cervical: no palpable lymph node enlargement RESPIRATORY: Inspection/Auscultation: good air movement, chest expands symmetrically, normal breath sounds, no wheezing, no stridor CARDIOVASCULAR SYSTEM: Auscultation: regular rate and rhythm, carotid pulse normal, no carotid thrills, no carotid bruits Observation/Palpation of Peripheral Vascular System: no varicosities, no cyanosis, no edema SKIN: General Appearance: no lesions, warm and dry, normal turgor, no bruising NEUROLOGICAL SYSTEM: Orientation: oriented to time, oriented to place, oriented to person Cranial Nerves: Cranial Nerves II-XII intact, normal facial movement PSYCHIATRIC: Mood and affect: normal mood, normal affect Assessment and Plan: She presents with persistent thyroid enlargement and recurrent of the cyst drained last visit. Biopsy showed fluid only and ws non-diagnostic. She is desirous of surgical resection at this time with total thyroidectomy preferred as she has bilateral nodular disease. We have discussed that this willrequire thyroid hormone replacement therapy and she is agreeable. Surgical treatment is recommended upon review of the patient's history, clinical presentation, exam, and available testing and laboratory data. The risks, alternatives, potential complications, and benefits of surgery are discussed at length. The surgical procedure, pre-operative preparation, and post-operative course are discussed. Any questions are answered to the patient's and/or caregiver's satisfaction and they are agreeable to proceed. An informational sheet covering this information is also provided. Witnessed informed surgical consent is signed in the office. The patient and/or caregiver is able to state an understanding of these recommendations and is agreeable to the treatment plan . 1. Goiter Case Request Operating Room: Total thyroidectomy, possible neck dissection Vital signs Height and weight Vital signs Insert peripheral IV lidocaine 10 mg/mL (1 %) injection 0.2 mL POC , Urine 2. Hyperthyroidism Case Request Operating Room: Total thyroidectomy, possible neck dissection No follow-ups on file. The patient and/or caregiver is to notify the office if no improvement or worsening of symptoms is noted prior to the scheduled follow-up for sooner evaluation. The patient and/or caregiver is able to state an understanding of these recommendations and is agreeable to the treatment plan. --Hector Cerna MD on 12/08/2023 at 1:45 PM An electronic signature was used to authenticate this note. * Nivia Garg MA - 12/08/2023 1:23 PM EST Review of Systems Constitutional: Negative. HENT: Negative. Eyes: Negative. Respiratory: Negative. Cardiovascular: Negative. Gastrointestinal: Negative. Endocrine: Negative. Genitourinary: Negative. Musculoskeletal: Negative. Skin: Negative. Allergic/Immunologic: Negative. Neurological: Negative. Hematological: Negative. Psychiatric/Behavioral: Negative. documented in this [id number] History of Present illness Narrative* Hector Cerna MD - 09/15/2023 2:55 PM EDT [facility] [address] [facility] [address] [place] [address] [facility] [address] Dept: [phone] MD Toni Mcdonough 33 y.o. female Patient presents with a chief complaint of Follow-up (Imaging and labs in chart for goiter) Temp 98.1 F (36.7 C) Ht 5' 3 Wt 70.3 kg (155 lb) BMI 27.46 kg/m History of Presenting Illness: The patient/caregiver reports a history of complaint with the following features: Onset: started in May of this year Timing: abrupt onset overnight, no change since last visit Duration: last few months Quality: low anterior neck swelling Location: anterior neck Severity: pain none currently, ut did have left neck pain about 2 months ago Risk factors: recent Alleviating factors: noting makes it better Aggravating factors: nothing makes it worse Associated factors: weight loss, but just , insomnia, occasional palpitations, anxiety Review of systems covering 10 systems is reviewed and pertinent positives and negatives are noted as above. Past Medical History: Diagnosis Date Goiter Rubella non-immune status, antepartum 10/11/2019 No current outpatient medications on file. No Known Allergies Past Surgical History: Procedure Laterality Date TOOTH EXTRACTION Social History Socioeconomic History Marital status: Single Tobacco Use Smoking status: Former Packs/day: 0 Types: Cigarettes Smokeless tobacco: Never Vaping Use Vaping Use: Never used Substance and Sexual Activity Alcohol use: Not Currently Drug use: Never Sexual activity: Yes Partners: Male Social Determinants of Health Food Insecurity: No Food Insecurity (02/18/2022) Hunger Vital Sign Worried About Running Out of Food in the Last Year: Never true Ran Out of Food in the Last Year: Never true Social Connections: Unknown (02/18/2022) Social Connection and Isolation Panel [NHANES] Frequency of Social Gatherings with Friends and Family: Twice a week Family History Problem Relation Age of Onset Thyroid nodules Mother Hypertension Father PHYSICAL EXAM: The patient was examined today 09/15/2023 with findings as follows: CONSTITUTIONAL: General Appearance: well-appearing, nontoxic, alert, no acute distress Communication: understanding at normal conversational tones, normal voicing, speech intelligible HEAD/FACE: Head: atraumatic, normocephalic, no lesions Facial Inspection: no lesions, healthy skin Facial Strength: motor strength normal, symmetric strength, symmetric movement Sinuses: no sinus tenderness Salivary Glands: no enlargements of parotid glands, no tenderness of parotid glands, no masses of parotid glands, clear salivary flow on palpation from Stensen's ducts, no duct stones of Stensen's duct, no enlargement of submandibular glands, no tenderness of submandibular glands, no masses of subma ndibular glands, clear salivary flow from Margarette's ducts, no stones of [place]'s ducts Temporomandibular Joint: no crepitus with motion, no tenderness on palpation, no trismus, motion symmetric EYES: Pupils: PERRLA, extra-ocular movements intact, no nystagmus, sclera white, no redness of eyes, no watering of eyes EARS: Bilateral External Ears: no pits, no tags Right External Ear: normally formed, no lesions, no mastoid tenderness Left External Ear: normally formed, no lesions, no mastoid tenderness Right External Auditory Canal: normal, healthy skin, no obstructing cerumen, no discharge Left External Auditory Canal: normal, healthy skin, no obstructing cerumen, no discharge Right Tympanic Membrane: normal landmarks, translucent, mobile to pneumatic otoscopy, no perforation Left Tympanic Membrane: normal landmarks, translucent, mobile to pneumatic otoscopy, no perforation Hearing: intact to spoken voice NOSE: Nasal Skin: no lesions, no lacerations, no scars Nasal Dorsum: symmetric with no visible or palpable deformities Nasal Tip: normal symmetric nasal tip, normal nasal valves Nasal Mucosa: normal, pink and moist Septum: not markedly deformed, midline, no exposed vessels, no bleeding, no septal granuloma Turbinates: normal size and conformation Nasopharynx: normal ORAL CAVITY/MOUTH: Lips, teeth, gums: normal lips, normal gums, dentition intact, no dental pain on palpation Oral Mucosa: normal, moist, no lesions Palate: normal hard palate, normal soft palate, symmetric palatal elevation Floor of Mouth: normal floor of mouth Tongue: normal tongue, no lesions, no edema, no masses, normal mucosa, mobile Tonsils: normal tonsils, symmetric, no lesions Posterior pharynx: normal NECK: Neck: no masses, trachea midline, normal range of motion, no cysts or pits, no tenderness to palpation Thyroid: 4 cm right mass, no tenderness, no nodules LYMPH NODES: Cervical: no palpable lymph node enlargement RESPIRATORY: Inspection/Auscultation: good air movement, chest expands symmetrically, normal breath sounds, no wheezing, no stridor CARDIOVASCULAR SYSTEM: Auscultation: regular rate and rhythm, carotid pulse normal, no carotid thrills, no carotid bruits Observation/Palpation of Peripheral Vascular System: no varicosities, no cyanosis, no edema SKIN: General Appearance: no lesions, warm and dry, normal turgor, no bruising NEUROLOGICAL SYSTEM: Orientation: oriented to time, oriented to place, oriented to person Cranial Nerves: Cranial Nerves II-XII intact, normal facial movement PSYCHIATRIC: Mood and affect: normal mood, normal affect Assessment and Plan: She presents with new thyroid enlargement. Ultrasound shows a multinodular goiter with a large right nodule consistent with her clinical presentation. Carotid ultrasound shows no abnormality to corroborate the concern noted on CT scan and reassurance is offered. TSH is suppressed with negative TPO and thyroglobulin antibodies and a normal T4. This is suggestive of an autonomous nodule. Uptake scan is advised prior to biopsy of the dominant nodule. The patient and/or caregiver is advised on the management of the thyroid nodule. The rationale for lab testing and imaging with ultrasound or other means is discussed. We have discussed that nodules less than 1 cm are generally managed with observation. In nodules greater that 1 cm, but less than 4cm, fine needle aspiration biopsy or serial ultrasound is warranted. Lesions over four centimeters should be biopsied or removed due to the increased risk of malignancy. We have discussed that rapid growth, associated voice changes, male gender, age less than 20 years and over 40 years of age, history of radiation exposure, and family history may be related to increased risk of malignancy. We have discussed that nodules suspicious for or with proven malignancy, or those causing pain, breathing or swallowing difficulties, or secreting excess thyroid hormone may benefit from surgical treatment.The patient and/or caregiver is able to state an understanding of these recommendations and is agreeable to the treatment plan. 1. Hyperthyroidism NM Thyroid Uptake And Scan 2. Goiter 3. Carotid artery disorder (HCC) Return in about 3 weeks (around 10/06/2023). The patient and/or caregiver is to notify the office if no improvement or worsening of symptoms is noted prior to the scheduled follow-up for sooner evaluation. The patient and/or caregiver is able to state an understanding of these recommendations and is agreeable to the treatment plan. --Hector Cerna MD on 09/15/2023 at 4:18 PM An electronic signature was used to authenticate this note. * Jimena Howell MA - 09/15/2023 2:47 PM EDT Review of Systems Constitutional: Negative. HENT: Negative. Eyes: Negative. Respiratory: Negative. Cardiovascular: Negative. Gastrointestinal: Negative. Endocrine: Negative. Genitourinary: Negative. Musculoskeletal: Negative. Skin: Negative. Allergic/Immunologic: Negative. Neurological: Negative. Hematological: Negative. Psychiatric/Behavioral: Negative. documented in this [id number] History of Present illness Narrative* Hector Cerna MD - 08/19/2023 2:59 PM EDT [facility] [address] [facility] [address] [facility] [id number] Dept: [phone] MD Toni Mcdonough 33 y.o. female Patient presents with a chief complaint of Thyroid Problem (Goiter on neck) Temp 98.3 F (36.8 C) Ht 5' 3 Wt 70.3 kg (155 lb) BMI 27.46 kg/m History of Presenting Illness: The patient/caregiver reports a history of complaint with the following features: Onset: started in May of this year Timing: abrupt onset overnight Duration: last few months Quality: low anterior neck swelling Location: anterior neck Severity: pain none currently, ut did have left neck pain about 2 months ago Risk factors: recent Alleviating factors: noting makes it better Aggravating factors: nothing makes it worse Associated factors: weight loss, but just , insomnia, occasional palpitations, anxiety Review of systems covering 10 systems is reviewed and pertinent positives and negatives are noted as above. Past Medical History: Diagnosis Date Goiter Rubella non-immune status, antepartum 10/11/2019 No current outpatient medications on file. No Known Allergies Past Surgical History: Procedure Laterality Date TOOTH EXTRACTION Social History Socioeconomic History Marital status: Single Tobacco Use Smoking status: Former Packs/day: 0 Types: Cigarettes Smokeless tobacco: Never Vaping Use Vaping Use: Never used Substance and Sexual Activity Alcohol use: Not Currently Drug use: Never Sexual activity: Yes Partners: Male Social Determinants of Health Food Insecurity: No Food Insecurity (02/18/2022) Hunger Vital Sign Worried About Running Out of Food in the Last Year: Never true Ran Out of Food in the Last Year: Never true Social Connections: Unknown (02/18/2022) Social Connection and Isolation Panel [NHANES] Frequency of Social Gatherings with Friends and Family: Twice a week Family History Problem Relation Age of Onset Thyroid nodules Mother Hypertension Father PHYSICAL EXAM: The patient was examined today 08/19/2023 with findings as follows: CONSTITUTIONAL: General Appearance: well-appearing, nontoxic, alert, no acute distress Communication: understanding at normal conversational tones, normal voicing, speech intelligible HEAD/FACE: Head: atraumatic, normocephalic, no lesions Facial Inspection: no lesions, healthy skin Facial Strength: motor strength normal, symmetric strength, symmetric movement Sinuses: no sinus tenderness Salivary Glands: no enlargements of parotid glands, no tenderness of parotid glands, no masses of parotid glands, clear salivary flow on palpation from Stensen's ducts, no duct stones of Stensen's duct, no enlargement of submandibular glands, no tenderness of submandibular glands, no masses of subma ndibular glands, clear salivary flow from [place]'s ducts, no stones of [place]'s ducts Temporomandibular Joint: no crepitus with motion, no tenderness on palpation, no trismus, motion symmetric EYES: Pupils: PERRLA, extra-ocular movements intact, no nystagmus, sclera white, no redness of eyes, no watering of eyes EARS: Bilateral External Ears: no pits, no tags Right External Ear: normally formed, no lesions, no mastoid tenderness Left External Ear: normally formed, no lesions, no mastoid tenderness Right External Auditory Canal: normal, healthy skin, no obstructing cerumen, no discharge Left External Auditory Canal: normal, healthy skin, no obstructing cerumen, no discharge Right Tympanic Membrane: normal landmarks, translucent, mobile to pneumatic otoscopy, no perforation Left Tympanic Membrane: normal landmarks, translucent, mobile to pneumatic otoscopy, no perforation Hearing: intact to spoken voice, intact to finger rub, [place] midline, Right Ear: Rinne AC>BC, Left Left Ear: Rinne AC>BC NOSE: Nasal Skin: no lesions, no lacerations, no scars Nasal Dorsum: symmetric with no visible or palpable deformities Nasal Tip: normal symmetric nasal tip, normal nasal valves Nasal Mucosa: normal, pink and moist Septum: not markedly deformed, midline, no exposed vessels, no bleeding, no septal granuloma Turbinates: normal size and conformation Nasopharynx: normal ORAL CAVITY/MOUTH: Lips, teeth, gums: normal lips, normal gums, dentition intact, no dental pain on palpation Oral Mucosa: normal, moist, no lesions Palate: normal hard palate, normal soft palate, symmetric palatal elevation Floor of Mouth: normal floor of mouth Tongue: normal tongue, no lesions, no edema, no masses, normal mucosa, mobile Tonsils: normal tonsils, symmetric, no lesions Posterior pharynx: normal NECK: Neck: no masses, trachea midline, normal range of motion, no cysts or pits, no tenderness to palpation Thyroid: 4 cm right mass, no tenderness, no nodules LYMPH NODES: Cervical: no palpable lymph node enlargement RESPIRATORY: Inspection/Auscultation: good air movement, chest expands symmetrically, normal breath sounds, no wheezing, no stridor CARDIOVASCULAR SYSTEM: Auscultation: regular rate and rhythm, carotid pulse normal, no carotid thrills, no carotid bruits Observation/Palpation of Peripheral Vascular System: no varicosities, no cyanosis, no edema SKIN: General Appearance: no lesions, warm and dry, normal turgor, no bruising NEUROLOGICAL SYSTEM: Orientation: oriented to time, oriented to place, oriented to person Cranial Nerves: Cranial Nerves II-XII intact, normal facial movement PSYCHIATRIC: Mood and affect: normal mood, normal affect Assessment and Plan: She presents with new thyroid enlargement. She had prior TSH that is low suggesting suppression andlabs for further work-up is advised. She reports insomnia and anxiety as well as weight loss, although this may reflect recent delivery of her child. CT has been done showing a large thyroid mass and2 cm cervical node or mass. There is also an abnormality of the left carotid artery. No history of connective tissue disease is reported although is a high risk time for vascular complication of these disorders. As she does recount prior neck pain on the left and recent , ultrasound for further evaluation to exclude dissection is advised. The patient and/or caregiver is advised on the management of the thyroid nodule. The rationale for lab testing and imaging with ultrasound or other means is discussed. We have discussed that nodules less than 1 cm are generally managed with observation. In nodules greater that 1 cm, but less than 4cm, fine needle aspiration biopsy or serial ultrasound is warranted. Lesions over four centimeters should be biopsied or removed due to the increased risk of malignancy. We have discussed that rapid growth, associated voice changes, male gender, age less than 20 years and over 40 years of age, history of radiation exposure, and family history may be related to increased risk of malignancy. We have discussed that nodules suspicious for or with proven malignancy, or those causing pain, breathing or swallowing difficulties, or secreting excess thyroid hormone may benefit from surgical treatment.The patient and/or caregiver is able to state an understanding of these recommendations and is agreeable to the treatment plan. 1. Goiter US Soft Tissue Neck 2. Hyperthyroidism TSH Thyroid peroxidase antibody (TPO) Thyroglobulin Antibody T4 3. Carotid artery disorder (HCC) Ultrasound duplex carotid Return in about 1 month (around 09/18/2023). The patient and/or caregiver is to notify the office if no improvement or worsening of symptoms is noted prior to the scheduled follow-up for sooner evaluation. The patient and/or caregiver is able to state an understanding of these recommendations and is agreeable to the treatment plan. --Hector Cerna MD on 08/19/2023 at 3:14 PM An electronic signature was used to authenticate this note. * Jimena Howell MA - 08/19/2023 2:46 PM EDT Review of Systems Constitutional: Negative. HENT: Negative. Eyes: Negative. Respiratory: Negative. Cardiovascular: Negative. Gastrointestinal: Negative. Endocrine: Negative. Genitourinary: Negative. Musculoskeletal: Negative. Skin: Negative. Allergic/Immunologic: Negative. Neurological: Negative. Hematological: Negative. Psychiatric/Behavioral: Negative. documented in this [id number] NoteSend Summary: Discharge Summary Providers: Provider RoleProvider Name AttendingMia Blood Note Recipients: none Discharge: Summary: Admission Date: .18-May-2023 10:12:00 Discharge Date: 19-May-2023 Attending Physician at Discharge: Mia Blood Admission Reason: 1. Retained products of conception 2. Preeclampsia Final Discharge Diagnoses: Retained products of conception, Procedures: Date: 18-May-2023 15:39:00 Procedure Name: 1. Suction curettage Condition at Discharge: Satisfactory Disposition at Discharge: .Home Vital Signs: T PRBPMAPSpO2 [id number]% Date/Time05/19 11: 11: 11: 11: 11: 11:42 Range(36.5C - 37.3C ) (46 - 92 ) (14 - 18 ) (119 - 161 )/ (74 - 108 ) (89 - 116 ) (95% - 100% ) Highest temp of 37.3 C was recorded at 05/18 10:12 Date: Weight/Scale Type:Height: 18-May-2023 15:5969 kg 159.7 cm Physical Exam: Lungs: Clear bilaterally Heart: Regular rate and rhythm Abdomen: Soft and nontender Hospital Course: Patient presented to the emergency room complaining of onset of heavy vaginal bleeding. Pelvic ultrasound obtained through the emergency room showed thickened endometrium concerning for retained products of conception. Blood pressure in the emergency room was noted to be intermittently elevated. Patient had a term vaginal delivery on May 05, 2023. Patient underwent a suction curettage on May 18, 2023. Patient was started on Procardia and her blood pressures were observe closely over the next 24 hours which were improved. Patient discharged on postop day 1. Patient will be continued on Procardia 30 mg XL daily and she will be monitoring her blood pressures twice daily at home. She is to follow-up in the office for blood pressure check in 2 [address] Aguirre. Immunizations: Immunizations: 08-Mar-2012 .Pneumonia- Pneumococcal polysaccharide vaccine-adult: Immunizations, 08-Mar-2012 DTaP- [id number] Pertussis: Immunizations, 07-Mar-2012 Discharge Information: and Continuing Care: Lab Results - Pending: Surgical Pathology Drawn at 18-May-2023 15:00:00 Radiology Results - Pending: None Discharge Instructions: Activity: Return to normal activity as tolerated Nutrition/Diet: Regular Follow Up Appointments: Follow-Up - OB Provider: Physician/Dept/Service: Cliff Aguirre MD Scheduled Date/Time: 21-May-2023 Discharge Medications: Home Medication ibuprofen 600 mg oral tablet - 1 tab(s) orally every 6 hours Procardia XL 30 mg oral tablet, extended release - 1 tab(s) orally once a day PRN Medication DNR Status: Code StatusCode Status order at time of discharge: Full Code Electronic Signatures: Mia Blood) (Signed 19-May-2023 12:12) Authored: Send Summary, Summary Content, Immunizations, Ongoing Care, DNR Status, Note Completion Last Updated: 19-May-2023 12:12 by Mia Blood)[facility] 05-18-2023 NotePROCEDURE DETAILS Preoperative Diagnosis: Retained placenta, O73.0 Postoperative Diagnosis: Retained placenta, O73.0 Surgeon: Mia Blood Resident/Fellow/Other Doorkeeper: None of these were associated with this case Procedure: 1. Suction curettage Anesthesia: No anesthesiologist associated with this case Estimated Blood Loss: 50 ml Findings: Approximately 6 to 8 weeks size anteverted uterus. Specimens(s) Collected: yes, Products of conception Operative Report: Procedure: The patient was brought in to the operating room, and placed in the supine position. Patient received Ancef 2 g IV preoperatively. Sequential compression devices were placed on the lower extremities. After an adequate level of general anesthesia, she was then placed in the low lithotomy position. The perineum and vagina were prepped and draped in the usual sterile fashion. Bimanual exam was performed, and above findings noted. The urinary bladder was drained using a straight red Busby catheter. Urine sent off for spot urine protein/creatinine ratio. A weighted speculum was placed in the vagina. The anterior vaginal wall was elevated. The anterior lip of the cervix was grasped with Allis clamp. The uterus was sounded to 9 cm. The cervix did not require dilation. The number 10 curved suction curettage tip was then introduced through the cervix into the uterine cavity. During the performance of the suction curettage, one ampule of Pitocin was placed in the IV bag. After thorough evacuation of the uterus, a final pass with the suction curette again revealed no further products of conception. Uterus was sounded to 8 cm. At this point the procedure was ended. No active bleeding per cervical os. Products of conception sent to pathology for further analysis. The Allis clamp and weighted speculum were all removed. Sponge and needle counts were correct x 2. The patient tolerated the procedure well and was taken to PACU in good condition. Attestation: Note Completion: Attending AttestationI performed the procedure without a resident Electronic Signatures: Mia Blood) (Signed 18-May-2023 15:43) Authored: Post-Operative Note, Chart Review, Note Completion Last Updated: 18-May-2023 15:43 by Mia Blood)[facility] 05-18-2023 NoteHistory & Physical Reviewed: /Lactating: Are You no (1) Are You Currently Breastfeedingno (1) I have reviewed the History and Physical dated: 18-May-2023 History and Physical reviewed and relevant findings noted. Patient examined to review pertinent physical findings.: No significant changes Home Medications Reviewed: no changes noted Allergies Reviewed: no changes noted ERAS (Enhanced Recovery After Surgery): ERAS Patient: no Consent: COVID-19 Consent: COVID-19 Risk ConsentSurgeon has reviewed gamino risks related to the risk of ceci COVID-19 and if they contract COVID-19 what the risks are. Electronic Signatures: Mia Blood) (Signed 18-May-2023 14:55) Authored: History & Physical Reviewed, ERAS, Consent, Note Completion Last Updated: 18-May-2023 14:55 by Mia Blood) References: 1. Data Referenced From Triage - ED 18-May-2023 10:21[facility] 05-18-2023 NoteHPI/OB History: Care Provider: Cliff Aguirre MD HPI Descriptive Info: HPI Patient is a 32-year-old black female 4 now para 4 who delivered on May 05 by normal spontaneous vaginal delivery. Patient presents to emergency room stating that she has had she was doing well following the delivery until she had onset of heavy vaginal bleeding this morning. Denies any fevers or chills. Patient is breast and bottlefeeding. Has a mild headache today. Denies any visual changes or epigastric pain. Ultrasound performed through the emergency room today shows thickened endometrium consistent with retained placenta. Patient's blood pressure in the emergency room was noted to be elevated and therefore patient received Procardia 10 mg orally. In light of the ultrasound findings consistent with retained placenta, recommend to proceed with suction curettage. Patient understands that with her elevated blood pressure that she will also be monitored over the next 24 hours in the hospital. Patient denies any prior issues of blood pressure problems during previous pregnancies or the current . Medical history: No prior surgeries. Term vaginal deliveries in 2011, 2019, 2020, and May 05, 2023. Family history: Noncontributory Social history: Denies smoking or ethanol consumption Review of Systems: Constitutional: No fever or chills Respiratory: No shortness of breath, or cough Cardiovascular: No chest pain or syncope Breasts: No breast pain, no masses, no nipple discharge Gastrointestinal: No nausea, vomiting, or diarrhea, no abdominal pain Genitourinary: No dysuria or frequency Gynecology: Negative except as noted in history of present illness All other: All other systems reviewed and negative for complaint PHYSICAL EXAMINATION: Well-developed, well nourished, in no acute distress, alert and oriented x three, is pleasant and cooperative. HEENT: Clear. Pupils equal, round and reactive to light and accommodation. Extraocular muscles are intact. Oral mucosa pink without exudate. NECK: No lymphadenopathy, no thyromegaly. LUNGS: Clear bilaterally. HEART: Regular rate and rhythm without murmurs. ABDOMEN: Normoactive bowel sounds, soft and nontender, no guarding or rebound tenderness, no CVA tenderness. EXTREMITIES: No clubbing, cyanosis or edema. NEUROLOGIC: Cranial nerves II-XII grossly intact. : Deferred until surgery. Antepartum/: Antepartum/PP: Delivery [id number] Days since [id number] Social History: Social History: Smoking Statusnever smoker (1) Alcohol Usedenies(1) Drug Usedenies (1) Allergies: No Known Allergies: Medications Prior to Admission: Admission Medication Reconciliation has not been completed for this patient. Objective: Objective Information: T PRBPMAPSpO2 [id number]% Date/Time05/18 12:506 13:296 13: 13: 13:29 Range(37.2C - 37.3C ) (46 - 63 ) (16 - 18 ) (142 - 155 )/ (92 - 108 ) (95% - 100% ) Highest temp of 37.3 C was recorded at 05/18 10:12 Pain reported at 05/18 12:50: 4 = Moderate Recent Lab Results: Results: CBC: 05/18/2023 11:27 \ Hgb / \ 13.8 / WBC Plt 5.3 237 / Hct \ / 42.8 \ RBC: 4.87 MCV: 88 Neutrophil %: 34.5 BMP: 05/18/2023 11:28 NA+ Cl- BUN / 135 L 108 H 11 / Glucose 91 K+ HCO3- Creat \ 3.7 22 0.49 L \ Calcium : 8.1 L Anion Gap : 9 L Coagulation: 05/18/2023 13:07 PT / 12.9 / -------< INR < 1.1 PTT\ 34 \ I have reviewed these laboratory results: Hepatic Function Panel 18-Bunny-2023 13:07:00 ResultValue Aspartate Transaminase, Serum 17 ALB 3.4 T Bili 1.0 Bilirubin, Serum Direct - Conjugated 0.0 ALKP 101 Alanine Aminotransferase, Serum 16 T Pro 7.2 TSH with Reflex to Free T4 if Abnormal 18-May-2023 13:07:00 ResultValue Thyroid Stimulating Hormone, Serum 0.39 L Urinalysis with Culture if Indicated 18-May-2023 11:42:00 ResultValue Color, Urine Yellow Reference Range: STRAW,YELLOW Appearance, Urine CLEAR Specific [place], Urine 1.018 pH, Urine 6.0 Protein, Urine 100(2+) A Glucose, Urine NEGATIVE Blood, Urine MODERATE(2+) A Ketones, Urine NEGATIVE Bilirubin, Urine NEGATIVE Urobilinogen, Urine <2.0 Nitrite, Urine Negative Leukocyte Esterase, Urine NEGATIVE Urinalysis, Microscopic 18-May-2023 11:42:00 ResultValue White Cells None Red Blood Cells 40 A Epithelial Cells, Squamous <1 Mucous 1+ Radiology Results: Results: Impression: Markedly thickened and heterogeneous endometrium, measuring up to 4.9 cm in dual layer thickness, with flow along its periphery, suggesting retained products of conception. Ultrasound Pelvis, Uterus and Ovaries [May 18 2023 1:17PM] Assessment and Plan: Problem List: Additio (more content not included)...[facility]06-06-2023 Note Send Summary: Discharge Summary Providers: Provider RoleProvider Name Cliff Sosa PrimaryRequired, No Pcp Note Recipients: None Discharge: Summary: Admission Date: .04-May-2023 21:36:00 Discharge Date: 07-May-2023 Admission Reason: 37 weeks gestation in labor Final Discharge Diagnoses: 37 weeks gestation in labor Procedures: Normal spontaneous vaginal delivery Condition at Discharge: Good Disposition at Discharge: Home Physical Exam: Patient sitting in bed comfortably Lungs clear to auscultation Heart regular rate and rhythm Uterine fundus firm below the umbilicus nontender Perineum minimal blood Extremities good mobility psych appropriately oriented Hospital Course: Patient was admitted at 37+ weeks gestation with spontaneous rupture of membranes. Patient was GBS positive and was started on antibiotics. Patient progressed in labor and had a normal spontaneous vaginal delivery. course was uncomplicated and was discharged home on day #2 Immunizations: Immunizations: 07-Mar-2012 DTaP- [id number]-[id number] Pertussis: Immunizations, 07-Mar-2012 .Pneumonia- Pneumococcal polysaccharide vaccine-adult: Immunizations, 08-Mar-2012 Discharge Information: and Continuing Care: Lab Results - Pending: None Radiology Results - Pending: None [place] Suicide Risk: negative Discharge Instructions: Activity: Return to normal activity as tolerated Nutrition/Diet: Regular Follow Up Appointments: Follow-Up - OB Provider: Physician/Dept/Service: OB Provider Dr. Aguirre Call to Schedule in: 6 weeks Location: Office Discharge Medications: Home Medication acetaminophen 325 mg oral tablet - 3 tab(s) orally every 6 hours ibuprofen 600 mg oral tablet - 1 tab(s) orally every 6 hours PRN Medication DNR Status: Code StatusCode Status order at time of discharge: Full Code Electronic Signatures: Cliff Aguirre) (Signed 07-May-2023 07:21) Authored: Send Summary, Summary Content, Immunizations, Ongoing Care, DNR Status, Note Completion Last Updated: 07-May-2023 07:21 by Cliff Aguirre)[facility] 05-05-2023 NoteProvider Information: Maternal Delivery Information: Delivery Type: vaginal delivery Did this pt receive corticosteroids at any time during this : No Was intraamniotic infection diagnosed during this labor: no What antibiotic(s) were administered during labor and/or pre-incision: Penicillin Did this patient receive progesterone in any form to prevent premature delivery: no Rupture of Membranes: spontaneous Spontaneous Labor: yes Augmentation: yes Vaginal Delivery Type: spontaneous Vaginal Delivery Complications: none Delivery Anesthesia: epidural Presentation/Lie: vertex Vertex Presentation: Left: occiput anterior Episiotomy & Repair: none Perineal Laceration: none Other Laceration: none Abrasion: none QBL (mL): 200 mL Blood Products Transfused during Delivery (indicate number of units given): none Placenta: spontaneous Choose Baby: A Cord Characteristics: no anomalies noted Day of Delivery (Baby A): 05-May-2023 Gestational Age at Delivery (wk.days): 37.4 Term: term 37.0 to 41.6 weeks Live : yes Vaginal Delivery Provider: Timothy Hemorrhage Risk Screen: Hemorrhage Medium Risk Factors (T&S) (2 or more medium risks Go to High Risk section & obtain T&C)augmentation of labor (with oxytocin)(1) Hemorrhage Risk Assessmenthemorrhage risks reviewed and additional factors added if applicable Hemorrhage Risk Score MediumPatient is at Medium Risk for an OB hemorrhage. Order Type & Screen. Score Calculation - IT Use Only1 Electronic Signatures: Cliff Aguirre) (Signed 05-May-2023 11:40) Authored: Provider Information, Hemorrhage Risk, Note Completion Last Updated: 05-May-2023 11:40 by Cliff Aguirre) References: 1. Data Referenced From History and Physical - OB 05-May-2023 08:45[facility] NoteClinical Event: Clinical Event Note: TopicProgress note Details Patient currently on Pitocin 4 milliunits and ceci every 2 minutes. tracing reassuring with good accelerations and no decelerations. Advised nurse to keep Pitocin at 4 at this point no indication to increase or decrease it. Electronic Signatures: Cliff Aguirre) (Signed 05-May-2023 10:39) Authored: Clinical Event Note Last Updated: 05-May-2023 10:39 by Cliff Aguirre)[facility] 05-05-2023 NoteHPI/OB History: Care Provider: Dr. Aguirre HPI Descriptive Info: ALBA Ball is a 32-year-old 4 para 3-0-0-2 who presents at 37+ weeks gestation with an EDC of 05/22/2023. She presented last night complaining of ruptured membranes approximately at 8 PM. No bleeding abnormal discharge or contractions good movement. has been complicated by anemia chronic headaches and GBS positive OB History: 3 normal spontaneous vaginal deliveries Labs: Labs: Labs: Blood Type: not ordered Chlamydia Date: 23-Dec-2022 Chlamydia Results: negative Gonorrhea Date: 23-Dec-2022 Gonorrhea Results: negative Strep Results: not ordered GCT (dd-mmm-yy): 17-Mar-2023 GCT result: 100 HBsAG Date: 30-Dec-2022 HBsAG Results: negative HIV Date: 30-Dec-2022 HIV Results: negative Rubella Date: 30-Dec-2022 Rubella Results: nonimmune Rubella Comments: Result Value Negative Syphilis (mmm-dd-yyyy): 30-Dec-2022 Syphilis Results: negative Maternal Urine Toxicology Screen Date: 30-Dec-2022 Toxicology Screen Comments: Negative on Dec 30, 2022 Antepartum/: Antepartum/PP: Final [id number] Current EGA:37.4 Patient is > or = 35.0 wks EGAyes Determined byGunjan EFW (kg)2.722 kilogram(s) EFW (lb)6 pound(s) EFW (oz)0 ounce(s) Presentationcephalic presentation verified bycervical exam Vaginal BleedingNo Contractions/Abdominal PainYes Discharge/Loss of FluidYes MovementGood Hemorrhage Medium Risk Factors (T&S) (2 or more medium risks Go to High Risk section & obtain T&C)augmentation of labor (with oxytocin) Hemorrhage Risk Assessmenthemorrhage risk completed on admission Hemorrhage Risk ScorePatient is at Medium Risk for an OB hemorrhage. Order Type & Screen. Score Calculation - IT Use Only1 TOLACno Did this patient receive progesterone in any form to prevent premature deliveryno Does patient desire postplacental IUDno Social History: Social History: Smoking Statusnever smoker (1) Alcohol Usedenies(1) Drug Usedenies (1) Drug 2 Usedenies (1) Allergies: No Known Allergies: Medications Prior to Admission: Admission Medication Reconciliation has not been completed for this patient. Objective: Objective Information: ---- Intake and Output ----- Mn/Dy/Year TimeIntakeOutputNet May 05, 2023 6:00 [id number] The Intake and Output Totals for the last 24 hours are: IntakeOutputNet [id number] Physical Exam by System: Constitutional: Laying in bed comfortably Obstetric: Gravid uterus nontender Head/Neck: Good range of motion Respiratory/Thorax: Clear to auscultation with good air movement Cardiovascular: Regular rate and rhythm Genitourinary: Cervix 4 cm 80% -3 station Extremities: Good mobility NST Interpretation - Baby A: Baseline [id number] Variabilitymoderate (amplitude range 6 to 25 bpm) InterpretationReactive (2 15x15 accels) Recent Lab Results: Results: CBC: 05/04/2023 22:27 \ Hgb / \ 10.8 L / WBC Plt 9.8 216 / Hct \ / 33.9 L \ RBC: 3.80 L MCV: 89 Neutrophil %: 63.8 Assessment and Plan: Assessment: Patient is a 32-year-old 4 para 3-0-0-2 who presents with ruptured membranes. Patient was observed with minimal change in her cervix from the time of presentation Pitocin was started. Anticipate a vaginal delivery. Pain management patient has an epidural. tracing reassuring GBS positive penicillin started Electronic Signatures: Cliff Aguirre) (Signed 05-May-2023 08:52) Authored: HPI/OB History, Labs, Antepartum/PP, Social History, Allergies, Medications Prior to Admission, Objective, Assessment and Plan, Note Completion Last Updated: 05-May-2023 08:52 by Cliff Aguirre) References: 1. Data Referenced From Patient Profile - OB v3 04-May-2023 22:[address] [place], [place] [address]-30-2023 NoteAccession #: [id number] Date of Procedure: 12/30/2022 Pathologist: [facility], Cytology Date Reported: 01/06/2023 Date Received: 12/30/2022 Submitting Physician: CLIFF AGUIRRE M.D. FINAL CYTOLOGICAL INTERPRETATION A. THINPREP PAP CERVICAL: Specimen Adequacy: SATISFACTORY FOR EVALUATION. Quality Indicator: Absence of endocervical/transformation zone component. Quality Indicator: Partially obscured by cytolysis. General Categorization: NEGATIVE FOR INTRAEPITHELIAL LESION OR MALIGNANCY. HIGH RISK HPV TEST RESULT: HPV GENOTYPE 16 NEGATIVE HPV GENOTYPE 18 NEGATIVE HPV GENOTYPE OTHER NEGATIVE Reference Range: Negative QC review performed at [facility], [address] [place] [address] Testing for high-risk (HR) type of human papilloma virus (HPV) is performed by the Consuelo jeffry HPV Test. The jeffry HPV Test is a qualitative polymerase chain reaction that amplifies DNA of HPV16, HPV18 and 12 other high-risk HPV types (31, 33, 35, 39, 45, 51, 52, 56, 58, 59, 66, and 68) associated with cervical cancer and its precursor lesions. A positive result indicates the presence of HPV DNA due to one or more of the 14 genotypes: 16, 18, 31, 33, 35, 39, 45, 51, 52, 56, 58, 59, 66, and 68. Negative results indicate HPV DNA concentrations are undetectable or below the pre-set threshold for detection. False negative results may be associated with unoptimized sampling. A negative HR HPV result does not exclude the possibility of future cytologic HSIL or underlying CIN2-3 or cancer. This test is approved for cervical specimens by the US Food and Drug Administration. Results of this test should be interpreted in conjunction with the patient?s Pap test results. Please refer to ASC current guidelines for the use of HPV DNA testing, result interpretation, and patient management. The performance of this test was verified by the Molecular Diagnostic Laboratory at [facility]. The lab is certified under the Clinical Laboratory Amendments of 1988 (CLIA 88) as qualified to perform high complexity clinical laboratory testing. This specimen has been analyzed by the [employer] Imaging System ([employer], [employer] an automated imaging and review system, which assists the laboratory in evaluating cells on ThinPrep Pap tests. Following automated imaging, selected leblanc from every slide were reviewed by a flash welder and/or pathologist. Electronically Signed Out By [facility], Cytology//TFP/JMD By the signature on this report, the individual or group listed as making the Final Interpretation/Diagnosis certifies that they have reviewed this case. Diagnostic interpretation performed at [facility] [address] [place] [id number] Educational Note: Cervical cytology is a screening procedure primarily for squamous cancers and precursors and has associated false-negative and false-positive results as evidenced by published data. Your patient?s test should be interpreted in this context, together with patient?s history and clinical findings. Regular sampling and follow-up of unexplained clinical signs and symptoms are recommended to minimize false negative results. Clinical History Date of Last Menstrual Period: 08/18/2022 Other Clinical Conditions: COTEST HPV(Genotype) except for ASC-H, HSIL, Carcinoma - Include HPV Genotype testing Annual Clinical Diagnosis History: Screening for cervical cancer - (Z12.4) Source of Specimen A: THINPREP PAP CERVICAL [facility] Department of Pathology [id number] [address]Comment on above:Performed By: #### ANEMI #### [address] [id number] Emergency department Note* Geovanna Tobin RN - 06/09/2022 10:40 AM EDT Bacitracin applied to wounds and dressed. Tolerated well. Discussed basic wound care at home. Tetanus updated. No concerns or questions voiced. Exits Ed with daughter and mother. [facility]07-10-2022 Emergency department Note* Geovanna Tobin RN - 06/09/2022 10:40 AM EDT Bacitracin applied to wounds and dressed. Tolerated well. Discussed basic wound care at home. Tetanus updated. No concerns or questions voiced. Exits Ed with daughter and mother. * Morales Banerjee DO - 06/09/2022 10:22 AM EDT Images from the original note were not included. Emergency Department Report 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 female presents to the ED today due to Superficial lacerations abrasions on the left arm after she said she points to the window earlier today but hour ago. She has full range of motion of fingers and wrist elbow. She has superficial lacerations that are not bleeding currently. She has no other complaints. Review of Systems: Review of Systems Past Medical History: No past medical history on file. Past Surgical History: No past surgical history on file. Allergies: No Known Allergies Medications: Patient's Medications New Prescriptions No medications on file Previous Medications CROMOLYN 4 % SOLUTION Place 2 drops in both eyes 4 times daily. CYCLOBENZAPRINE 10 MG TAB TABLET Take 1 tablet by mouth 3 times daily as needed for Muscle spasms. PHENAZOPYRIDINE 200 MG TABLET Take 1 tablet by mouth 3 times daily. Modified Medications No medications on file Discontinued Medications No medications on file Family History: Family History Problem Relation Age of Onset Cancer- Other Maternal Aunt Colorectal Cancer Maternal Grandmother Social History: Social History Socioeconomic History Marital status: Single Spouse name: Not on file Number of children: Not on file Years of education: Not on file Highest education level: Not on file Occupational History Not on file Tobacco Use Smoking status: Former Smoker Smokeless tobacco: Former User Tobacco comment: also vapes Vaping Use Vaping Use: Former Substance and Sexual Activity Alcohol use: Yes Comment: occasional Drug use: Not Currently Sexual activity: Never control/protection: I.U.D. Other Topics Concern Not on file Social History Narrative Not on file Social Determinants of Health Financial Resource Strain: Not on file Food Insecurity: Not on file Transportation Needs: Not on file Physical Activity: Not on file Stress: Not on file Social Connections: Not on file Intimate Partner Violence: Not on file Housing Stability: Not on file Physical Exam: Physical Exam Musculoskeletal: Left shoulder: Normal. Left upper arm: Normal. Left elbow: Normal. Left forearm: Normal. Left wrist: Normal. Left hand: Normal. Skin: General: Skin is warm. Capillary Refill: Capillary refill takes less than 2 seconds. Findings: Abrasion and wound present. No laceration. Comments: Multiple very superficial linear abrasions on the left forearm. None require interventionor repair. She has full range of motion of the left wrist hand fingers without weakness. Elbow is also normal. Vital Signs During ED Visit Patient Vitals for the past 24 hrs: BP Temp Temp src Pulse Resp SpO2 06/09/22 1013 114/67 98.7 F (37.1 C) Oral 114 16 96 % Orders/Results: Orders Placed This Encounter bacitracin ointment 1 Application Nsmplvi-Mcbxja-Hfgvv Pertussis (BOOSTRIX) syringe 0.5 mL Radiographic Imaging No orders to display Procedures: Procedures Moderate Sedation Procedure: No Medications Ordered/Given During ED Visit Medications bacitracin ointment 1 Application (has no administration in time range) Keerxfv-Iwxmgs-Sburg Pertussis (BOOSTRIX) syringe 0.5 mL (has no administration in time range) Medical Decision Making Superficial laceration left arm multiple. No repair needed. Dressing placed on the wound to the nursing staff. TdaP given. She'll be discharged home. Clinical Impression: 1. Abrasion of left forearm, initial encounter Acute No follow-ups on file. New Prescriptions No medications on file Discontinued Medications No medications on file An After Visit Summary was printed and given to the patient with above information. Morales Banerjee DO 06/09/22 1030 * Jennifer Ryan RN - 06/09/2022 10:16 AM EDT Wounds cleaned with hibiclens and saline [facility] Discharge instructions* Discharge Instructions* Morales Banerjee DO - 06/09/2022 10:27 AM EDT Thank you for allowing us to be involved in your care today. Please follow up as discussed during your stay. This information is included in your discharge paperwork. Appropriate follow up is essential in your continued care after today's visit. If you had any diagnostic studies (Labs, X-rays, CT-scan , Ultrasound or Cultures) have your Primary Care Physician (PCP) review them with you since there may be results that require further follow up or investigation. Return to the Emergency Department at any point with worsening conditions or concerns. The physician and staff of the Emergency Department would like to thank you for choosing our facility for your health care needs. Our goal is to provide exceptional service. You may be receiving a survey in the mail following your visit. Because your feedback is very important to us, we hope you will take the time to complete and return the survey. If for any reason, you feel that you cannot rateus Very Good or 5 for the service you received today, please let us know prior to your discharge. Please follow up with your family doctor or one of your choosing. You may find a provider through the [facility] Physician Referral Service by calling [phone] or by visiting [email or web address] Thank You for choosing the [facility] Emergency Department! * Attachments The following attachments cannot be sent through Care Everywhere. * Abrasions ([place]) documented in [facility] Phys[facility] Emergency department Note* Morales Hurtado Lavonne, - 06/09/2022 10:22 AM EDT Images from the original note were not included. 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 female presents to the ED today due to Superficial lacerations abrasions on the left arm after she said she points to the window earlier today but hour ago. She has full range of motion of fingers and wrist elbow. She has superficial lacerations that are not bleeding currently. She has no other complaints. Review of Systems: Review of Systems Past Medical History: No past medical history on file. Past Surgical History: No past surgical history on file. Allergies: No Known Allergies Medications: Patient's Medications New Prescriptions No medications on file Previous Medications CROMOLYN 4 % SOLUTION Place 2 drops in both eyes 4 times daily. CYCLOBENZAPRINE 10 MG TAB TABLET Take 1 tablet by mouth 3 times daily as needed for Muscle spasms. PHENAZOPYRIDINE 200 MG TABLET Take 1 tablet by mouth 3 times daily. Modified Medications No medications on file Discontinued Medications No medications on file Family History: Family History Problem Relation Age of Onset Cancer- Other Maternal Aunt Colorectal Cancer Maternal Grandmother Social History: Social History Socioeconomic History Marital status: Single Spouse name: Not on file Number of children: Not on file Years of education: Not on file Highest education level: Not on file Occupational History Not on file Tobacco Use Smoking status: Former Smoker Smokeless tobacco: Former User Tobacco comment: also vapes Vaping Use Vaping Use: Former Substance and Sexual Activity Alcohol use: Yes Comment: occasional Drug use: Not Currently Sexual activity: Never control/protection: I.U.D. Other Topics Concern Not on file Social History Narrative Not on file Social Determinants of Health Financial Resource Strain: Not on file Food Insecurity: Not on file Transportation Needs: Not on file Physical Activity: Not on file Stress: Not on file Social Connections: Not on file Intimate Partner Violence: Not on file Housing Stability: Not on file Physical Exam: Physical Exam Musculoskeletal: Left shoulder: Normal. Left upper arm: Normal. Left elbow: Normal. Left forearm: Normal. Left wrist: Normal. Left hand: Normal. Skin: General: Skin is warm. Capillary Refill: Capillary refill takes less than 2 seconds. Findings: Abrasion and wound present. No laceration. Comments: Multiple very superficial linear abrasions on the left forearm. None require interventionor repair. She has full range of motion of the left wrist hand fingers without weakness. Elbow is also normal. Vital Signs During ED Visit Patient Vitals for the past 24 hrs: BP Temp Temp src Pulse Resp SpO2 06/09/22 1013 114/67 98.7 F (37.1 C) Oral 114 16 96 % Orders/Results: Orders Placed This Encounter bacitracin ointment 1 Application Fkupzhu-Epbere-Bzfir Pertussis (BOOSTRIX) syringe 0.5 mL Radiographic Imaging No orders to display Procedures: Procedures Moderate Sedation Procedure: No Medications Ordered/Given During ED Visit Medications bacitracin ointment 1 Application (has no administration in time range) Rsersui-Ozhbea-Wwwgk Pertussis (BOOSTRIX) syringe 0.5 mL (has no administration in time range) Medical Decision Making Superficial laceration left arm multiple. No repair needed. Dressing placed on the wound to the nursing staff. TdaP given. She'll be discharged home. Clinical Impression: 1. Abrasion of left forearm, initial encounter Acute No follow-ups on file. New Prescriptions No medications on file Discontinued Medications No medications on file An After Visit Summary was printed and given to the patient with above information. Morales Banerjee DO 06/09/22 1030 [facility]07-10-2022 Emergency department Note* Jennifer Ryan RN - 06/09/2022 10:16 AM EDT Wounds cleaned with hibiclens and saline [facility]04-25-2022 Evaluation + Plan note* Assessment & Plan Note - Charles Eric DO - 03/25/2022 2:30 PM EDTAssociated Problem(s): Abnormal urinalysis Get previously ordered urinalysis when done with period for at least a week and well hydrated [id number] Evaluation + Plan note* Assessment & Plan Note - Charles Eric DO - 03/25/2022 2:30 PM EDTAssociated Problem(s): Normocytic anemia (Resolved 03/25/2022) Consider resolved [id number] Miscellaneous Notes* Assessment & Plan Note - Charles Eric DO - 03/25/2022 2:30 PM EDTAssociated Problem(s): Abnormal urinalysis Get previously ordered urinalysis when done with period for at least a week and well hydrated * Assessment & Plan Note - Charles Eric DO - 03/25/2022 2:30 PM EDT Associated Problem(s): Normocytic anemia (Resolved 03/25/2022) Consider resolved * Assessment & Plan Note - Charles Eric DO - 03/25/2022 2:28 PM EDT Associated Problem(s): Cerumen impaction Discussed hx-she tried otc wax remover in rt ear and didn't have success- wants irrigation-rt ear irrigated with tepid water and utilized cerumen loop also and after repeated irrigations was able to remove large amount of brown cerumen- patient tolerated well and said could hear out of right ear again-rt ear reexamined and noted tm normal and eac with slight redness-no excoriations or stenosis-advised patient to stop using otc wax remover for now * Assessment & Plan Note - Charles Eric DO - 03/25/2022 2:28 PM EDT Associated Problem(s): Fatigue (Resolved 03/25/2022) Consider resolved documented in this [id number] Evaluation + Plan note* Assessment & Plan Note - Charles Eric DO - 03/25/2022 2:28 PM EDT Associated Problem(s): Cerumen impaction Discussed hx-she tried otc wax remover in rt ear and didn't have success- wants irrigation-rt ear irrigated with tepid water and utilized cerumen loop also and after repeated irrigations was able to remove large amount of brown cerumen- patient tolerated well and said could hear out of right ear again-rt ear reexamined and noted tm normal and eac with slight redness-no excoriations or stenosis-advised patient to stop using otc wax remover for now [id number] Evaluation + Plan note* Assessment & Plan Note - Charles Eric DO - 03/25/2022 2:28 PM EDTAssociated Problem(s): Fatigue (Resolved 03/25/2022) Consider resolved [id number] History of Present illness Narrative* Charles Eric DO - 03/25/2022 2:10 PM EDT Images from the original note were not included. Subjective Patient ID: Toni Jacobson is a 31 y.o. female. Follow up fatigue and right cerumen impaction Re fatigue=sasy energy level good today- Re rt cerumen impaction-tried otc wax removal and didn't get anything out--says feels like cant hear in ears-rt >lt-denies earpain Labs reviewed: Lab Results Component Value Date WBC 6.43 02/18/2022 HGB 13.8 02/18/2022 HCT 41.7 02/18/2022 MCV 93.9 02/18/2022 PLT 245 02/18/2022 RBC 4.44 02/18/2022 02/18/22: Color, Urine Colorless, Yellow Yellow Clarity, Urine Clear Cloudy Abnormal Hazy Abnormal Specific Ellinger 1.005 - 1.025 1.032 High pH, Urine 5.0 - 7.0 6.0 Protein, Urine Negative mg/dL Negative Glucose, Urine Negative mg/dL Negative Ketones, Urine Negative mg/dL Negative Bilirubin, Urine Negative Negative Urobilinogen, Urine <2.0 mg/dL <2.0 Blood, Urine Negative Negative Nitrite, Urine Negative Negative Leukocyte Esterase, Urine Negative Negative Bacteria, Urine None Seen /hpf None Seen Squamous Epithelial 0 - 4 /hpf 2 Amorphous Crystals None Seen, Rare /hpf Many Abnormal Mucus, Urine None Seen, Rare /lpf Few Abnormal Rare Resulting Agency [facility] Lab Was supposed to get repeat ua with reflex c and s 02/26/22 -didn't get but says will do this Cholesterol 100 - 199 mg/dL 154 Comment: National Cholesterol Education Program Guidelines: Cholesterol Desirable: <200 mg/dL Borderline High: 200-239 mg/dL High: greater than or equal to 240 mg/dL Triglycerides 30 - 150 mg/dL 74 Comment: National Cholesterol Education Program Guidelines: Triglyceride Normal: <150 mg/dL Borderline High: 150-199 mg/dL High: 200-499 mg/dL Very High: greater than or equal to 500 mg/dL HDL 40 - 59 mg/dL 52 Comment: National Cholesterol Education Program Guidelines: HDL Cholesterol Low: <40 mg/dL Near Optimal: 40-59 mg/dL High: greater than or equal to 60 mg/dL Chol/HDL Ratio ratio 3.0 Comment: Female Cholesterol/HDL Ratio: Average risk: 4.4 1/2 average risk: 3.3 2 x average risk: 7.1 LDL Calculated 10 - 130 mg/dL 87 Comment: National Cholesterol Education Program Guidelines: LDL Cholesterol Optimal: <100 mg/dL Near Optimal/above Optimal: 100-129 mg/dL Borderline High: 130-159 mg/dL High: 160-189 mg/dL Very High: greater than or equal to 190 mg/dL Non HDL Cholesterol mg/dL 102 Sodium 135 - 145 mmol/L 136 Potassium 3.5 - 5.1 mmol/L 4.0 Chloride 98 - 108 mmol/L 106 Bicarbonate 21 - 32 mmol/L 29 Anion Gap 10 - 20 mmol/L 5 Low Glucose 65 - 99 mg/dL 83 BUN 8 - 25 mg/dL 10 Creatinine 0.40 - 1.10 mg/dL 0.71 eGFR >=60 mL/min/1.73 m2 133 BUN/Creatinine Ratio 10.0 - 20.0 14.1 Total Protein 6.0 - 8.0 g/dL 8.1 High Albumin 3.2 - 5.2 g/dL 3.7 Calcium 8.4 - 10.2 mg/dL 8.7 Alkaline Phosphatase 40 - 140 U/L 79 AST 0 - 45 U/L 22 Total Bilirubin 0.0 - 1.3 mg/dL 0.5 ALT 14 - 65 U/L 24 TSH 0.27 - 4.20 mcIU/mL 0.47 Says had some vaginal itching this am and used monistat otc vaginal cream for relief- Patient has no known allergies. Past Medical History: Diagnosis Date Rubella non-immune status, antepartum 10/11/2019 Past Surgical History: Procedure Laterality Date TOOTH EXTRACTION Family History Problem Relation Age of Onset Thyroid nodules Mother Hypertension Father Social History Socioeconomic History Marital status: Single Tobacco Use Smoking status: Former Smoker Packs/day: 0.00 Smokeless tobacco: Never Used Vaping Use Vaping Use: Never used Substance and Sexual Activity Alcohol use: Not Currently Drug use: Never Sexual activity: Yes Partners: Male Social Determinants of Health Food Insecurity: No Food Insecurity Worried About Running Out of Food in the Last Year: Never true Ran Out of Food in the Last Year: Never true Social Connections: Unknown Frequency of Social Gatherings with Friends and Family: Twice a week Social History Tobacco Use Smoking Status Former Smoker Packs/day: 0.00 Smokeless Tobacco Never Used Counseling given: Not Answered No current outpatient medications on file. No current facility-administered medications for this visit. Review of Systems Constitutional: Negative for fatigue and fever. HENT: Positive for hearing loss. Negative for ear discharge, ear pain, rhinorrhea and sore throat. Respiratory: Negative for cough and shortness of breath. Cardiovascular: Negative for chest pain, palpitations and leg swelling. Genitourinary: Negative for dysuria, hematuria, vaginal bleeding and vaginal discharge. BP 135/88 (BP Location: Left arm, Patient Position: Sitting) Pulse (!) 57 Temp 98.4 F (36.9 C) (Infrared) Resp 16 Ht 5' 3 Wt 67.8 kg (149 lb 8 oz) LMP 02/27/2022 SpO2 99% BMI 26.48 kg/m Patient's last menstrual period was 02/27/2022. Objective Physical Exam Vitals and nursing note reviewed. Constitutional: General: She is not in acute distress. Appearance: Normal appearance. She is not ill-appearing, toxic-appearing or diaphoretic. HENT: Head: Normocephalic and atraumatic. Right Ear: External ear normal. There is impacted cerumen. Left Ear: Tympanic membrane, ear canal and external ear normal. There is no impacted cerumen. Ears: Comments: Tried otc wax remover-wants irrigation Nose: Nose normal. No congestion or rhinorrhea. Mouth/Throat: Mouth: Mucous membranes are moist. Pharynx: Oropharynx is clear. No oropharyngeal exudate or posterior oropharyngeal erythema. Eyes: General: No scleral icterus. Right eye: No discharge. Left eye: No discharge. Extraocular Movements: Extraocular movements intact. Conjunctiva/sclera: Conjunctivae normal. Pupils: Pupils are equal, round, and reactive to light. Cardiovascular: Rate and Rhythm: Normal rate and regular rhythm. Heart sounds: Normal heart sounds. No murmur heard. No friction rub. No gallop. Pulmonary: Effort: Pulmonary effort is normal. No respiratory distress. Breath sounds: Normal breath sounds. Musculoskeletal: Cervical back: Neck supple. No rigidity or tenderness. Right lower leg: No edema. Left lower leg: No edema. Lymphadenopathy: Cervical: No cervical adenopathy. Neurological: Mental Status: She is alert. Assessment/Plan: Problem List Items Addressed This Visit Nervous and Auditory Cerumen impaction Discussed hx-she tried otc wax remover in rt ear and didn't have success- wants irrigation-rt ear irrigated with tepid water and utilized cerumen loop also and after repeated irrigations was able to remove large amount of brown cerumen- patient tolerated well and said could hear out of right ear again-rt ear reexamined and noted tm normal and eac with slight redness-no excoriations or stenosis-advised patient to stop using otc wax remover for now Other Abnormal urinalysis Get previously ordered urinalysis when done with period for at least a week and well hydrated RESOLVED: Normocytic anemia Consider resolved RESOLVED: Fatigue Consider resolved Return in about 1 year (around 03/25/2023), or if symptoms worsen or fail to improve, for Annual physical. Charles Eric DO Goals None For any new medications prescribed today, patient was educated about indications for the medication, how to take the medication and potential side effects of the medications. 03/25/22 2:35 PM documented in this [id number] Note* Addendum Note - Charles Eric DO - 02/18/2022 2:22 PM EDTAddended by: CHARLES ERIC on: 02/18/2022 02:22 PM Modules accepted: SmartSet [id number] Note* Addendum Note - Charles Eric DO - 02/18/2022 2:22 PM EDTAddended by: CHARLES ERIC on: 02/18/2022 02:22 PM Modules accepted: SmartSet [id number] Miscellaneous Notes* Addendum Note - Charles Eric DO - 02/18/2022 2:22 PM EDTAddended by: CHARLES ERIC on: 02/18/2022 02:22 PM Modules accepted: SmartSet * Assessment & Plan Note - Charles Eric DO - 02/18/2022 2:08 PM EDT Associated Problem(s): Fatigue ddx includes metabolic vs iron deficiency/other deficiency- I do recommend checking labs and also rec multivitamin otc. * Assessment & Plan Note - Charles Eric DO - 02/18/2022 2:07 PM EDT Associated Problem(s): Normocytic anemia Recommend ample iron in diet and await labs- * Assessment & Plan Note - Charles Eric DO - 02/18/2022 2:07 PM EDT Associated Problem(s): Cerumen impaction Discussed debrox otc and follow up prn to get removed documented in this [id number] History of Present illness Narrative* Charles Eric DO - 02/18/2022 2:20 PM EDT Depression Screening 02/18/2022 Little interest or pleasure in doing things 0 Feeling down, depressed, or hopeless 0 PHQ-2 Total Score 0 Trouble falling or staying asleep, or sleeping too much 0 Feeling tired or having little energy 0 Poor appetite or overeating 0 Feeling bad about yourself - or that you are a failure or have let yourself or your family down 0 Trouble concentrating on things, such as reading the newspaper or watching television 0 Moving or speaking so slowly that other people could have noticed. Or the opposite - being so fidgety or restless that you have been moving around a lot more than usual 0 Thoughts that you would be better off , or of hurting yourself in some way 0 PHQ-9 Total Score 0 * Charles Eric DO - 02/18/2022 1:44 PM EDT Images from the original note were not included. Subjective Patient ID: Toni Jacobson is a 31 y.o. female. HERE TO ESTABLISH-DENIES HAVING PRIMARY CARE- WELLNESS SEES DR ROSSI FOR OB-DIETITIAN CHIEF ISSUES- LAST PAP 01/04/21: Interpretation Negative for intraepithelial lesion or malignancy LABS REVIEWED: Lab Results Component Value Date WBC 8.34 05/14/2021 HGB 9.6 (L) 05/15/2021 HCT 32.7 (L) 05/14/2021 MCV 87.4 05/14/2021 PLT 170 05/14/2021 RBC 3.74 (L) 05/14/2021 SAYS THIS WAS AROUND TIME OF GIVING - NO MORE RECENT CBC'S SEEN Pvgsplo-Nlzpj-svqj at 500, 1000, 2000, and 4000 Hz Left-pass at 500, 1000, 2000, and 4000 Hz Vision-20/20 right 20/25 left 20/25 both CORRECTED- sees dr teran-optometry and wears glasses She did ask about vitamin recommendation. Patient has no known allergies. Past Medical History: Diagnosis Date Rubella non-immune status, antepartum 10/11/2019 Past Surgical History: Procedure Laterality Date TOOTH EXTRACTION Family History Problem Relation Age of Onset Thyroid nodules Mother Hypertension Father Social History Socioeconomic History Marital status: Single Tobacco Use Smoking status: Former Smoker Packs/day: 0.00 Smokeless tobacco: Never Used Vaping Use Vaping Use: Never used Substance and Sexual Activity Alcohol use: Not Currently Drug use: Never Sexual activity: Yes Partners: Male Social Determinants of Health Food Insecurity: No Food Insecurity Worried About Running Out of Food in the Last Year: Never true Ran Out of Food in the Last Year: Never true Social Connections: Unknown Frequency of Social Gatherings with Friends and Family: Twice a week Social History Tobacco Use Smoking Status Former Smoker Packs/day: 0.00 Smokeless Tobacco Never Used Counseling given: Not Answered No current outpatient medications on file. No current facility-administered medications for this visit. Review of Systems Constitutional: Positive for fatigue (LOW ENERGY). Negative for fever. HENT: Negative for ear pain, rhinorrhea, sore throat and trouble swallowing. Eyes: Positive for visual disturbance (wears glasses). Negative for pain. Respiratory: Negative for cough, shortness of breath and wheezing. Cardiovascular: Negative for chest pain, palpitations and leg swelling. Gastrointestinal: Negative for abdominal pain, constipation, diarrhea, nausea and vomiting. Endocrine: Negative for polydipsia and polyuria. Genitourinary: Negative for dysuria, hematuria and vaginal bleeding. Musculoskeletal: Negative for gait problem and joint swelling. Skin: Negative for rash and wound. Allergic/Immunologic: Negative for environmental allergies, food allergies and immunocompromised state. Neurological: Negative for dizziness and light-headedness. Hematological: Negative for adenopathy. Does not bruise/bleed easily. Psychiatric/Behavioral: Negative for dysphoric mood. The patient is not nervous/anxious. PHQ 9 REVIEWED-SCORE 0 BP 128/84 (BP Location: Left arm, Patient Position: Sitting, BP Cuff Size: Adult) Pulse 64 Temp98.2 F (36.8 C) (Infrared) Resp 16 Ht 5' 3 Wt 66.7 kg (147 lb) LMP 02/01/2022 (Exact Date) SpO2 96% No BMI 26.04 kg/m Patient's last menstrual period was 02/01/2022 (exact date). Objective Physical Exam Vitals and nursing note reviewed. Constitutional: General: She is not in acute distress. Appearance: Normal appearance. She is not ill-appearing, toxic-appearing or diaphoretic. HENT: Head: Normocephalic and atraumatic. Right Ear: External ear normal. There is impacted cerumen. Left Ear: Tympanic membrane, ear canal and external ear normal. There is no impacted cerumen. Ears: Comments: Noted cerumen impaction in rt external auditory canal-Discussed with patient using otc debrox and follow up prn Nose: Nose normal. No congestion or rhinorrhea. Mouth/Throat: Mouth: Mucous membranes are moist. Pharynx: Oropharynx is clear. No oropharyngeal exudate or posterior oropharyngeal erythema. Eyes: General: No scleral icterus. Right eye: No discharge. Left eye: No discharge. Extraocular Movements: Extraocular movements intact. Conjunctiva/sclera: Conjunctivae normal. Pupils: Pupils are equal, round, and reactive to light. Cardiovascular: Rate and Rhythm: Normal rate and regular rhythm. Heart sounds: Normal heart sounds. No murmur heard. No friction rub. No gallop. Pulmonary: Effort: Pulmonary effort is normal. No respiratory distress. Breath sounds: Normal breath sounds. Abdominal: General: Abdomen is flat. Bowel sounds are normal. There is no distension. Palpations: Abdomen is soft. There is no mass. Tenderness: There is no abdominal tenderness. There is no guarding or rebound. Musculoskeletal: Cervical back: Neck supple. No rigidity or tenderness. Right lower leg: No edema. Left lower leg: No edema. Lymphadenopathy: Cervical: No cervical adenopathy. Skin: General: Skin is warm and dry. Coloration: Skin is not jaundiced. Neurological: Mental Status: She is alert. Cranial Nerves: No cranial nerve deficit. Psychiatric: Mood and Affect: Mood normal. Behavior: Behavior normal. Assessment/Plan: Problem List Items Addressed This Visit Nervous and Auditory Cerumen impaction Discussed debrox otc and follow up prn to get removed Other Normocytic anemia Recommend ample iron in diet and await labs- Relevant Orders CBC and Differential Encounter for well adult exam with abnormal findings - Primary Relevant Orders Lipid Panel Fatigue ddx includes metabolic vs iron deficiency/other deficiency- I do recommend checking labs and also rec multivitamin otc. Relevant Orders CBC and Differential Comprehensive Metabolic Panel TSH with Reflex Free T4 Outreach Urinalysis w/ Reflex Culture Return in about 4 weeks (around 03/18/2022), or if symptoms worsen or fail to improve, for Recheck fatigue and rt cerumen impaction. Charles Eric DO Goals None For any new medications prescribed today, patient was educated about indications for the medication, how to take the medication and potential side effects of the medications. 02/18/22 2:21 PM documented in this [id number] Evaluation + Plan note* Assessment & Plan Note - Charles Eric DO - 02/18/2022 2:08 PM EDT Associated Problem(s): Fatigue ddx includes metabolic vs iron deficiency/other deficiency- I do recommend checking labs and also rec multivitamin otc. [id number] Evaluation + Plan note* Assessment & Plan Note - Charles Eric DO - 02/18/2022 2:07 PM EDTAssociated Problem(s): Normocytic anemia Recommend ample iron in diet and await labs- [id number] Evaluation + Plan note* Assessment & Plan Note - Charles Eric DO - 02/18/2022 2:07 PM EDTAssociated Problem(s): Cerumen impaction Discussed debrox otc and follow up prn to get removed [id number] Emergency department Note* Morales Banerjee, - 01/19/2022 5:23 PM EST Emergency Department Report [facility] EMERGENCY MEDICINE Service Date:.01/19/22 PCP: No primary care provider on file. Chief Complaint: Chief Complaint Patient presents with Bladder Infection Patient reports of urgency and lower abd pain that radiates to kidney area, cloudy urine for 3 days HPI Toni Jacobson is a 31 y.o. female presents to the ED today due toUTI symptoms for the last2 days or so. She has some suprapubic discomfort with Review of Systems: Review of Systems Constitutional: Negative for chills and fever. HENT: Negative for congestion, sore throat, trouble swallowing and voice change. Eyes: Negative for discharge and visual disturbance. Respiratory: Negative for cough and shortness of breath. Cardiovascular: Negative for chest pain and leg swelling. Gastrointestinal: Negative for abdominal pain, nausea and vomiting. Genitourinary: Positive for dysuria, frequency and urgency. Negative for enuresis and flank pain. Musculoskeletal: Negative for back pain. Skin: Negative for rash. Neurological: Negative for weakness. Psychiatric/Behavioral: Negative for confusion. All other systems reviewed and are negative. Past Medical History: No past medical history on file. Past Surgical History: No past surgical history on file. Allergies: No Known Allergies Medications: Patient's Medications New Prescriptions NITROFURANTOIN, MACROCRYSTAL-MONOHYDRATE, 100 MG CAPSULE Take 1 capsule by mouth 2 times daily withmeals for 3 days. Take w/ food/milk PHENAZOPYRIDINE 200 MG TABLET Take 1 tablet by mouth 3 times daily. Previous Medications CROMOLYN 4 % SOLUTION Place 2 drops in both eyes 4 times daily. CYCLOBENZAPRINE 10 MG TAB TABLET Take 1 tablet by mouth 3 times daily as needed for Muscle spasms. Modified Medications No medications on file Discontinued Medications No medications on file Family History: Family History Problem Relation Age of Onset Cancer- Other Maternal Aunt Colorectal Cancer Maternal Grandmother Social History: Social History Socioeconomic History Marital status: Single Spouse name: Not on file Number of children: Not on file Years of education: Not on file Highest education level: Not on file Occupational History Not on file Tobacco Use Smoking status: Former Smoker Smokeless tobacco: Former User Tobacco comment: also vapes Vaping Use Vaping Use: Former Substance and Sexual Activity Alcohol use: Yes Comment: occasional Drug use: Not Currently Sexual activity: Never control/protection: I.U.D. Other Topics Concern Not on file Social History Narrative Not on file Social Determinants of Health Financial Resource Strain: Not on file Food Insecurity: Not on file Transportation Needs: Not on file Physical Activity: Not on file Stress: Not on file Social Connections: Not on file Intimate Partner Violence: Not on file Housing Stability: Not on file Physical Exam: Physical Exam Vitals and nursing note reviewed. Constitutional: General: She is not in acute distress. Appearance: She is well-developed. She is not toxic-appearing. HENT: Head: Normocephalic and atraumatic. Nose: Nose normal. Mouth/Throat: Mouth: Mucous membranes are moist. Pharynx: Oropharynx is clear. Eyes: Extraocular Movements: Extraocular movements intact. Conjunctiva/sclera: Conjunctivae normal. Pupils: Pupils are equal, round, and reactive to light. Cardiovascular: Rate and Rhythm: Normal rate and regular rhythm. Pulses: Normal pulses. Heart sounds: Normal heart sounds. Pulmonary: Effort: Pulmonary effort is normal. Breath sounds: Normal breath sounds. Abdominal: General: Bowel sounds are normal. Palpations: Abdomen is soft. Tenderness: There is abdominal tenderness in the suprapubic area. There is no guarding or rebound. Musculoskeletal: General: Normal range of motion. Cervical back: Normal range of motion and neck supple. Skin: General: Skin is warm and dry. Capillary Refill: Capillary refill takes less than 2 seconds. Findings: No erythema or rash. Neurological: General: No focal deficit present. Mental Status: She is alert and oriented to person, place, and time. Cranial Nerves: No cranial nerve deficit. Deep Tendon Reflexes: Reflexes normal. Psychiatric: Behavior: Behavior normal. Thought Content: Thought content normal. Vital Signs During ED Visit Patient Vitals for the past 24 hrs: BP Temp Temp src Pulse Resp SpO2 Height 01/19/22 1747 1.6 m (5' 3) 01/19/22 1745 (!) 145/93 99.1 F (37.3 C) Oral 90 16 98 % Orders/Results: Orders Placed This Encounter nitrofurantoin, macrocrystal-monohydrate, 100 MG capsule phenazopyridine 200 MG tablet nitrofurantoin (macrocrystal-monohydrate) (MACROBID) capsule 100 mg URINALYSIS, MACRO HCG QUALITATIVE, URINE URINE MICROSCOPIC Results for orders placed or performed during the hospital encounter of 01/19/22 URINALYSIS, MACRO Result Value Ref Range COLOR, URINE YELLOW YELLOW APPEARANCE, URINE CLEAR CLEAR SPECIFIC GRAVITY, URINE 1.020 1.010 - 1.025 PH URINE 6.0 5.0 - 7.0 PROTEIN, URINE 30 (A) NEGATIVE mg/dl GLUCOSE, URINE NEGATIVE NEGATIVE mg/dl KETONES, URINE 40 (A) NEGATIVE mg/dl BILIRUBIN, URINE NEGATIVE NEGATIVE BLOOD, URINE DIPSTICK NEGATIVE NEGATIVE NITRITES, URINE NEGATIVE NEGATIVE UROBILINOGEN, URINE 0.2 0.2 - 1.0 E.U./dL LEUKOCYTE ESTERASE, URINE NEGATIVE NEGATIVE HCG QUALITATIVE, URINE Result Value Ref Range HCG, QUALITATIVE, URINE NEGATIVE URINE MICROSCOPIC Result Value Ref Range WBC, URINE 1 TO 5 NEGATIVE /HPF RBC, URINE NEGATIVE NEGATIVE /HPF Epithelial Cells UA 1 TO 5 /HPF Mucus TRACE (A) NEGATIVE BACTERIA, URINE TRACE (A) NEGATIVE CRYSTALS, URINE NONE NONE CASTS, URINE NONE NONE /LPF COMMENT, URINE CULTURE CRITERIA NOT MET, NO CULTURE PERFORMED. Radiographic Imaging No orders to display Procedures: Procedures Moderate Sedation Procedure: No Medications Ordered/Given During ED Visit Medications nitrofurantoin (macrocrystal-monohydrate) (MACROBID) capsule 100 mg (has no administration in time range) Medical Decision Making Dysuria.. She does have some trace bacteria and trace white blood cells on urine. We'll treat her presumptively with Macrobid and have her follow-up with primary care. Clinical Impression: 1. Dysuria Acute No follow-ups on file. New Prescriptions NITROFURANTOIN, MACROCRYSTAL-MONOHYDRATE, 100 MG CAPSULE Take 1 capsule by mouth 2 times daily withmeals for 3 days. Take w/ food/milk PHENAZOPYRIDINE 200 MG TABLET Take 1 tablet by mouth 3 times daily. Discontinued Medications No medications on file An After Visit Summary was printed and given to the patient with above information. Morales Banerjee DO 01/19/221816 Morales Banerjee DO 01/19/221816 [facility] Discharge instructions* Instructions* Morales Banerjee DO - 01/19/2022 Thank you for allowing us to be involved in your care today. Please follow up as discussed during your stay. This information is included in your discharge paperwork. Appropriate follow up is essential in your continued care after today's visit. If you had any diagnostic studies (Labs, X-rays, CT-scan , Ultrasound or Cultures) have your Primary Care Physician (PCP) review them with you since there may be results that require further follow up or investigation. Return to the Emergency Department at any point with worsening conditions or concerns. The physician and staff of the Emergency Department would like to thank you for choosing our facility for your health care needs. Our goal is to provide exceptional service. You may be receiving a survey in the mail following your visit. Because your feedback is very important to us, we hope you will take the time to complete and return the survey. If for any reason, you feel that you cannot rateus Very Good or 5 for the service you received today, please let us know prior to your discharge. Please follow up with your family doctor or one of your choosing. You may find a provider through the [facility] Referral Service by calling [phone] or by visiting [email or web address] Thank You for choosing the [facility] Emergency Department! * Attachments The following attachments cannot be sent through Care Everywhere. * Dysuria ([place]) [facility] Surgical operation note* Anesthesia Postprocedure Evaluation - Rebecca Sanchez CRNA - 05/14/2021 8:52 PM EDT Anesthesia Post Evaluation * * Refer to nursing documentation for PACU vitals * * Comment: Pt delivered without labor analgesia * Anesthesia Preprocedure Evaluation - Rebecca Sanchez CRNA - 05/14/2021 6:56 PM EDT ANESTHESIA PREPROCEDURE EVALUATION Anesthesia Plan ASA: 2 Type: epidural Comment: Pt wishes to receive epidural for L&D. RBA discussed. 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 No prior surgeries/ general anesthetics) Pulmonary - negative Neurological / Psychological - negative Cardiovascular - negative Gastrointestinal / Hepatic / Renal - negative NPO Status Last liquid solid food consumption: 05/13 Last liquid consumption: 05/13 Endocrine / Musculoskeletal - negative Obstetric Patient is (37 weeks gestation. Late care per chart). documented in this [id number] Miscellaneous Notes* Quick Note - Terrie Khan RN - 05/08/2021 9:02 AM EDT 30y/o arrived to l/d c/o SROM. Amnisure neg. SVE /-3. Occasional contraction with irritability on monitor. Cat 1 tracing. After 2 hour observation, repeat Amnisure negative. No change with SVE. White discharge noted on exam glove. Patient states she is currently being treated for a yeast in fection. Discharge order rec'd to send home. Patient will keep her 2pm appointment with Dr Goff. AVS reviewed with patient. Verbalized understanding. Printed copy opf AVS given to patient. Patient left unit ambulatory, gait steady, accompanied by her significant other. documented in this [id number] Procedure note* Akil Rossi MD - 05/08/2021 8:53 AM EDT Patient presented with symptoms she thought might be labor type contractions, And srom . She was placed in Labor and Delivery, monitored and examined. During the course of her observation,her symptoms were not suggestive of labor, and monitoring and tocometry was performed. See myinterpretation. Toni Jacobson is a 30 y.o. at 37w0d Reason for NST: Threatened labor, term BP: BP 138/86 Pulse 80 Temp 98.9 F (37.2 C) (Oral) Resp 16 Ht 5' 3 Wt 83.5 kg (184 lb) LMP 10/12/2020 SpO2 100% BMI 32.59 kg/m Variability: BDC variability: moderate Decelerations: absent Accelerations: present 15 x 15 Acoustic Stimulator: No Baseline: 140 bpm Uterine Irritability: present Contractions: irregular, every 4-15 minutes Irregular in timing , duration, frequency and perception. Interpretation: reactive NST Chart was reviewed. No current facility-administered medications for this encounter. Allergies: Patient has no known allergies. Past Medical History: Diagnosis Date Rubella non-immune status, antepartum 10/11/2019 History reviewed. No pertinent surgical history. History reviewed. No pertinent family history. Social History Socioeconomic History Marital status: Single Spouse name: Not on file Number of children: Not on file Years of education: Not on file Highest education level: Not on file Occupational History Not on file Tobacco Use Smoking status: Former Smoker Packs/day: 0.00 Smokeless tobacco: Never Used Vaping Use Vaping Use: Never used Substance and Sexual Activity Alcohol use: Not Currently Drug use: Never Sexual activity: Yes Partners: Male Other Topics Concern Not on file Social History Narrative Not on file Social Determinants of Health Financial Resource Strain: Difficulty of Paying Living Expenses: Food Insecurity: Worried About Running Out of Food in the Last Year: Ran Out of Food in the Last Year: Transportation Needs: Lack of Transportation (Medical): Lack of Transportation (Non-Medical): Physical Activity: Days of Exercise per Week: Minutes of Exercise per Session: Stress: Feeling of Stress : Social Connections: Frequency of Communication with Friends and Family: Frequency of Social Gatherings with Friends and Family: Attends Mandaen Services: Active Member of Clubs or Organizations: Attends Club or Organization Meetings: Marital Status: Social History Substance and Sexual Activity Alcohol Use Not Currently Social History Substance and Sexual Activity Drug Use Never Social History Tobacco Use Smoking Status Former Smoker Packs/day: 0.00 Smokeless Tobacco Never Used Vitals No documentation. She c/o lower abdominal pains, which started a few hours before presenting to LD Located in her lower abdomen, some on her side, and radiating into her upper thighs. Not that painful, and inconsistent in strength, duration and timimg. Some minor nausea. 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 Patient presented with c/o discomfort. She was evaluated in labor and delivery, monitored and examined. Her symptoms improved, and the concerns of a threatened labor were addressed. She was discharged to home, She should return for reevaluation should she notice vaginal blood / bleeding, leakage ofamniotic fluid / abnormal discharge for which she has not been evaluated, a change in abdominal or pelvic pain, or decreased movements. OB Examiner - PW: Baron No cervical change during her observation period. And repeat amniosure is neg Movement: Patient reports good movements at discharge. Admission on 05/01/2021, Discharged on 05/01/2021 Component Date Value Ref Range Status Group B Strep PCR 05/01/2021 GBS POSITIVE* GBS NEGATIVE Final Admission on 04/25/2021, Discharged on 04/25/2021 Component Date Value Ref Range Status ABORh 04/25/2021 O Positive Final Antibody Screen 04/25/2021 Negative Final Specimen Expires 04/25/2021 04/28/2021 23:59 EST Final WBC 04/25/2021 10.45 4.50 - 11.00 K/mcL Final RBC 04/25/2021 3.72* 4.00 - 5.20 M/mcL Final Hemoglobin 04/25/2021 11.2* 12.0 - 16.0 g/dL Final Hematocrit 04/25/2021 32.8* 36.0 - 46.0 % Final MCV 04/25/2021 88.2 80.0 - 100.0 fL Final MCH 04/25/2021 30.1 26.0 - 34.0 pg Final MCHC 04/25/2021 34.1 31.0 - 37.0 g/dL Final Platelets 04/25/2021 213 150 - 400 K/mcL Final RDW - CV 04/25/2021 14.3 11.6 - 14.8 % Final MPV 04/25/2021 9.8 9.4 - 12.4 fL Final Nucleated RBC 04/25/2021 0.0 % Final Nucleated RBC Abs 04/25/2021 0.00 0.00 - 0.00 K/mcL Final Syphilis Treponemal Ab 04/25/2021 Negative Negative Final Amphetamine Screen, Urine 04/25/2021 None Detected None Detected Final Urine Amphetamine Cutoff: < 1000 ng/mL = None Detected Barbiturate Screen, Urine 04/25/2021 None Detected None Detected Final Urine Barbiturates Cutoff: < 200 ng/mL = None Detected Benzodiazepine Screen, Urine 04/25/2021 None Detected None Detected Final Urine Benzodiazepine Cutoff: < 200 ng/mL = None Detected Cannabinoid Screen, Urine 04/25/2021 None Detected None Detected Final Urine Cannabinoids Cutoff: < 50 ng/mL = None Detected Cocaine, Screen Urine 04/25/2021 None Detected None Detected Final Urine Cocaine Cutoff: < 300 ng/mL = None Detected Methadone Screen, Urine 04/25/2021 None Detected None Detected Final Urine Methadone Cutoff: < 300 ng/mL = None Detected Opiate Screen, Urine 04/25/2021 None Detected None Detected Final Urine Opiates Cutoff: < 300 ng/mL = None Detected Oxycodone Screen, Urine 04/25/2021 None Detected None Detected Final Urine Oxycodone Cutoff: < 100 ng/mL = None Detected Buprenorphine, Ur 04/25/2021 None Detected None Detected Final Urine Buprenorphine Cutoff: < 5 ng/mL = None Detected Fentanyl, Ur 04/25/2021 None Detected None Detected Final Urine Fentanyl Cutoff: < 1 ng/mL = None Detected Color, Urine 04/25/2021 Yellow Colorless, Yellow Final Clarity, Urine 04/25/2021 Hazy* Clear Final Specific Ellinger 04/25/2021 1.019 1.005 - 1.025 Final pH, Urine 04/25/2021 7.0 5.0 - 7.0 Final Protein, Urine 04/25/2021 Negative Negative mg/dL Final Glucose, Urine 04/25/2021 Negative Negative mg/dL Final Ketones, Urine 04/25/2021 Trace* Negative mg/dL Final Bilirubin, Urine 04/25/2021 Negative Negative Final Urobilinogen, Urine 04/25/2021 >=4.0* <2.0 mg/dL Final Blood, Urine 04/25/2021 Negative Negative Final Nitrite, Urine 04/25/2021 Negative Negative Final Leukocyte Esterase, Urine 04/25/2021 Trace* Negative Final WBCs, Urine 04/25/2021 2 0 - 5 /hpf Final RBCs, Urine 04/25/2021 1 0 - 3 /hpf Final Bacteria, Urine 04/25/2021 Few* None Seen /hpf Final Squamous Epithelial 04/25/2021 2 0 - 4 /hpf Final Budding Yeast, Urine 04/25/2021 Rare* None Seen /hpf Final Mucus, Urine 04/25/2021 Rare None Seen, Rare /lpf Final Culture 04/25/2021 Three or more morphotypes; none predominant. Not processed further. Contact Microbiology within 48 hours if workup is clinically indicated. Final She informed to contact the office for follow up instructions. She will return to [facility] should she have any changes in her health / status at the time of her discharge or decreased kick counts. She should also return for reevaluation should she notice vaginal blood / bleeding, leakage of amniotic fluid / abnormal discharge for which she has not been evaluated, a change in abdominal or pelvic pain, or decreased movements. She was comfortable with being discharged to home and agrees [place] [id number] documented in this [id number] Hospital Discharge instructions * Discharge Instr - Other Orders* Veda Bryant RN - 05/03/2021 4:32 AM EDT Follow up at your next scheduled appointment. If you experience vaginal bleeding, leaking fluid, decreased movement or contractions; returnto the hospital for evaluation. * Attachments The following attachments cannot be sent through Care Everywhere. * : Kick Counts ([place]an) * : Weeks 34 to 36 ([place]an) * : When to Call (After 20 Weeks): General Info ([place]an) documented in this [id number] Miscellaneous Notes* Quick Note - Veda Bryant RN - 05/03/2021 4:22 AM EDT Pt arrived to LD with complaints of vaginal discharge that has been occurring for the last week. Ptwas in on 05/01/21 and was ordered Monistat which she stated she did not start until today. SVE 3-/-3 with copious amounts of white chunky discharge. Amnisure collected and negative. Dr Florence notified and order for pt to continue with medication and to follow up with Dr Rossi as scheduled. Pt denies abd. Pain/ctx. Pt is having occ. Contraction. AVS sheet reviewed with pt who verbalized understanding. documented in this [id number] Miscellaneous Notes* Quick Note - Amie Louise RN - 04/25/2021 6:48 AM EDT 35w1d. Presented to unit with complaints of contractions and leaking of fluid. RN placed pt onmonitor, performed amnisure and SVE. SVE was /-2, amnisure was negative and pt was ceci every 2-5 minutes. RN notified provider Dr Rossi. Dr Rossi ordered a liter of IV fluid bolus and 0.25mg of terbutaline x1. RN monitored ctx. After IV bolus and terbutaline pt had occasional ctx,about 1 per hour. RN performed second SVE. 2. RN updated provider who is comfortable with sending pt home with instructions to rest, drink plenty of fluids and follow-up as scheduled. 0652: Pt ambulated self to private vehicle home with SO at side. * Quick Note - Amie Louise RN - 04/25/2021 4:20 AM EDT IV bolus ordered for pt is complete, an hour since terbutaline 0.25mg given. Pt states she is not feeling any contractions at this point in time. States she is feeling increased amount of movement. RN encouraged oral fluid intake and will continue to evaluate uterine activity documented in this [id number] Hospital Discharge instructions * Discharge Instr - Other Orders* Amie Louise RN - 04/25/2021 6:34 AM EDT Drink fluids Rest often Follow-up with provider * Attachments The following attachments cannot be sent through Care Everywhere. * : KICK COUNTS (BURMESE) * : WEEKS 34 TO 36 (BURMESE) * : WHEN TO CALL (AFTER 20 WEEKS): GENERAL INFO ([place]MESE) documented [facility] Narrative - Reported* Patient here today for Genetics consultation * Referred by Cliff Aguirre for Microcephaly * DUDLEY: 05/22/2023 * Ismael Pond LPN * Accompanied by FOB. [id number] Work Phone: chivu complaint Narrative - Reported* Patient here today for Genetics consultation * Referred by Cliff Aguirre for Microcephaly * DUDLEY: 05/22/2023 * Ismael Pond LPN * Accompanied by FOB. [id number] IMG Work Phone: chief complaint Narrative - Reported* Patient here today for Genetics consultation * Referred by Cliff Aguirre for Microcephaly * DUDLEY: 05/22/2023 * CRandy Pond, ANDROID DEVELOPER * Accompanied by FOYamilet. 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 [facility]* Diagnosis Dysuria- Primary [facility]* Diagnosis Encounter for well adult exam with abnormal findings- Primary Normocytic anemia Unspecified anemia Fatigue, unspecified type Impacted cerumen of right ear Impacted cerumen [facility]* Diagnosis Encounter for well adult exam with abnormal findings- Primary Normocytic anemia Unspecified anemia Fatigue, unspecified type Impacted cerumen of right ear Impacted cerumen [facility]* Diagnosis Fatigue, unspecified type Impacted cerumen of right ear Impacted cerumen Normocytic anemia Unspecified anemia Abnormal urinalysis Other nonspecific finding on examination of urine [facility]* Diagnosis Abrasion of left forearm, initial encounter- Primary documented in this encounter [facility] note* Psychological: Appropriately orientedHead/Neck: Good range of motionRespiratory/Thorax: Clear to aus cultationCardiovascular: Regular rate and rhythmGenitourinary: Perineum a small amount of blood in on the pad no bleeding produced with fundal pressureMusculoskeletal: Good mobilityConstitutional: Laying in bed easily arousable [facility]* Diagnosis Goiter- Primary Goiter, unspecified Hyperthyroidism Thyrotoxicosis without mention of goiter or other cause, without mention of thyrotoxic crisis or storm Carotid artery disorder (HCC) documented [facility] this [facility]* Diagnosis Hyperthyroidism- Primary Thyrotoxicosis without mention of goiter or other cause, without mention of thyrotoxic crisis or storm Goiter Goiter, unspecified Carotid artery disorder (HCC) [facility]* Diagnosis Goiter- Primary Goiter, unspecified Hyperthyroidism Thyrotoxicosis without mention of goiter or other cause, without mention of thyrotoxic crisis or storm [facility]* Diagnosis Goiter- Primary Goiter, unspecified Hyperthyroidism Thyrotoxicosis without mention of goiter or other cause, without mention of thyrotoxic crisis or storm Goiter Goiter, unspecified Hyperthyroidism Thyrotoxicosis without mention of goiter or other cause, without mention of thyrotoxic crisis or storm [facility]* Diagnosis Goiter Goiter, unspecified Hyperthyroidism Thyrotoxicosis without mention of goiter or other cause, without mention of thyrotoxic crisis or storm Goiter- Primary Goiter, unspecified Hyperthyroidism Thyrotoxicosis without mention of goiter or other cause, without mention of thyrotoxic crisis or storm Pre-op examination Goiter Goiter, unspecified Hyperthyroidism Thyrotoxicosis without mention of goiter or other cause, without mention of thyrotoxic crisis or storm [facility]* Diagnosis Goiter- Primary Goiter, unspecified Hyperthyroidism Thyrotoxicosis without mention of goiter or other cause, without mention of thyrotoxic crisis or storm Pre-op examination [facility]* Diagnosis Multinodular goiter- Primary Nontoxic multinodular goiter Goiter Goiter, unspecified Hyperthyroidism Thyrotoxicosis without mention of goiter or other cause, without mention of thyrotoxic crisis or storm Multinodular goiter Nontoxic multinodular goiter Goiter Goiter, unspecified Hyperthyroidism Thyrotoxicosis without mention of goiter or other cause, without mention of thyrotoxic crisis or storm [facility]* Diagnosis Primary thyroid cancer (HCC)- Primary [facility]* Diagnosis Postoperative hypothyroidism- Primary Postsurgical hypothyroidism Primary thyroid cancer (HCC) [facility]* Diagnosis Other sinusitis, unspecified chronicity- Primary documented in this encounter [facility] Work Phone: Evaluation note* Diagnosis Postoperative hypothyroidism- Primary Postsurgical hypothyroidism [facility]* Diagnosis Papillary thyroid carcinoma (HCC)- Primary Postoperative hypothyroidism Postsurgical hypothyroidism Hypocalcemia [facility]* Diagnosis Rectal irritation- Primary Other specified disorder of rectum and anus Vaginal discharge Leukorrhea, not specified as infective documented in this encounter [facility] Work Phone: Evaluation note* Diagnosis Primary thyroid cancer (HCC)- Primary Postoperative hypothyroidism Postsurgical hypothyroidism documented in this encounter [facility] Makeda is a 32-year-old 4 para 2 who comes in for confirmation of . Patient's lastmenstrual period was August 21, 2023. Patient reports she has been feeling fine during the . She reports this was not a planned . Patient denies nausea vomiting GI upset reports she has been feeling movement for couple days no cramping or bleeding but reports vaginal itching and discharge. She reports she is prone to yeast infections. Patient has had 3 previous spontaneous vaginal deliveries with no complications. However 3 years ago her oldest child from [facility].[employer] [facility] [employer] Phone: Hospital Discharge instructions* Attachments The following attachments cannot be sent through Care Everywhere. * : Kick Counts ([place]) documented in this encounterOhioHealthHospital Discharge instructions* Activity:Return to normal activity as tolerated. * Patient Instructions:Pelvic Rest: DO NOT place anything in vagina until cleared by OB Provider. MayNOT return to school/work until cleared by OB Provider. * Follow-Up - OB Provider:Physician/Dept/Service: OB Provider, Dr. Ibarra to Schedule in: 6 weeksLocation: Office * Gold Form - Other Clinicians:Other Clinician Instructions: Any woman can have complications after the of a baby including a blood clot, a heart problem, hypertensive disorder/eclampsia, depression, hemorrhage, or infection. Notify all providers of your delivery date up to one year after .* Call 911 or go to nearest emergency room right away if you have: PAIN or pressure in chest; OBSTRUCTED breathing or shortness of breath; SEIZURES; THOUGHTS of hurting yourself or your baby; heart palpitations/racing; change in alertness/confusion.Call your provider if you have: BLEEDING, soaking t hrough a pad/hour, or blood clots the size of an egg or bigger; INCISION (episiotomy stitches or site) that is not healing (increased redness, pain, drainage/pus, or separation); RED or swollen leg/calf that is painful or warm to touch, especially in one leg more than the other; TEMPERATURE of 100.4 F or higher or chills; HEADACHE that does not get better with medicine, rest or hydration, or bad headache with vision changes like spots or flashing lights; increased swelling of face, hands or legs; severe cramps or upper right belly pain; red or swollen breast that is painful or warm to touch; an unusual, foul odor from your vaginal discharge; pain, burning, or difficulty during urination; severe constipation (more than 5 days); feelings of depression (such as depressed mood, lossof interest in enjoyable things, unable to care for yourself, trouble sleeping, lack of appetite, or feeling worthless). If you can t reach your provider or symptoms worsen, call 911 or go to [facility] room. *Information obtained from [facility] s: Save Your Life: Get Care for These POST- Warning SignsOn Behalf on the [facility]aternity Staff, Congratulations on your infant. It was ou r pleasure to take care of you and your during your stay. We hope during this stay that we have exceeded all of your expectations. We will be calling you in a few days to check up on you and your infant. Please allow us to speak with you and please ask questions or let us know if you have any concerns. Again, Congratulations![facility] Regards,[facility] CenterProcedure anesthesia Narrative* Procedure Summary Procedure Name Responsible Anesthesiologist Anesthesia Start Time Anesthesia Stop Time LABOR ANALGESIA Events Date Time Event Comment 05/14/2021 190 Meds * Agents No agents on file. * Blood No blood administrations on file. Lines, Drains, and Airways No LDAs on file. documented in this encounter [facility] (n[facility])* Reason for Referral: impaired mobility [facility] Summary Purpose Family History Unknown Family Member Name Dates Details Colon cancer: Grandmother Status:Active Unknown Family Member Name Dates Details Colon cancer: Grandmother Status:Active Unknown Family Member Name Dates Details Colon cancer: Grandmother Status:Active Unknown Family Member Name Dates Details Colon cancer: Grandmother Status:Active Unknown Family Member Name Dates Details Colon cancer: Grandmother Status:Active Unknown Family Member Name Dates Details Colon cancer: Grandmother Status:Active Unknown Family Member Name Dates Details Colon cancer: Grandmother Status:Active Unknown Family Member Name Dates Details Colon cancer: Grandmother Status:Active Unknown Family Member Name Dates Details Colon cancer: Grandmother Status:Active Unknown Family Member Name Dates Details Colon cancer: Grandmother Status:Active Unknown Family Member Name Dates Details Colon cancer: Grandmother Status:Active Unknown Family Member Name Dates Details Colon cancer: Grandmother Status:Active Unknown Family Member Name Dates Details Colon cancer: Grandmother Status:Active Unknown Family Member Name Dates Details Colon cancer: Grandmother Status:Active Unknown Family Member Name Dates Details Colon cancer: Grandmother Status:Active Unknown Family Member Name Dates Details Colon cancer: Grandmother Status:Active Unknown Family Member Name Dates Details Colon cancer: Grandmother Status:Active Unknown Family Member Name Dates Details Colon cancer: Grandmother Status:Active Unknown Family Member Name Dates Details Colon cancer: Grandmother Status:Active Relationship Condition Age at Onset Recorded Date/T carri grandmother Anemia Unknown Arthritis Unknown Disorder of thyroid Unknown mother Arthritis Unknown aunt Arthritis Unknown Malignant neoplasm of breast Unknown daughter Asthma Unknown aunt Malignant neoplasm of colon Unknown aunt Disorder of thyroid Unknown Advance Directives Documents on File Type Date Recorded Patient Infrastructure Administrator Expl anation Advance Directives and Living Will Documents on File Type Date Recorded Patient Infrastructure Administrator Expl anation Advance Directives and Livin g Will 05/09/2020 7:55 AM Latest Code Status on File Code Status Date Activated Date Inactivated Comments Full Code 05/09/2020 9:19 PM 05/11/2020 1:57 PM Full Code 05/09/2020 8:03 AM 05/09/2020 9:19 PM Documents on File Type Date Recorded Patient Infrastructure Administrator Expl anation Advance Directives and Livin g Will 04/25/2021 2:47 AM Documents on File Type Date Recorded Patient Infrastructure Administrator Expl anation Advance Directives and Livin g Will 05/03/2021 4:36 AM Latest Code Status on File Code Status Date Activated Date Inactivated Comments Full Code 05/03/2021 4:29 AM 05/03/2021 7:08 AM Full Code 05/01/2021 8:21 AM 05/01/2021 2:05 PM Full Code 05/09/2020 9:19 PM 05/11/2020 1:57 PM Documents on File Type Date Recorded Patient Infrastructure Administrator Expl anation Advance Directives and Livin g Will 05/08/2021 7:04 AM Documents on File Type Date Recorded Patient Infrastructure Administrator Expl anation Advance Directives and Livin g Will 05/14/2021 7:04 AM Latest Code Status on File Code Status Date Activated Date Inactivated Comments Full Code 05/14/2021 11:47 PM Full Code 05/14/2021 6:26 PM 05/14/2021 11:46 PM Full Code 05/03/2021 4:29 AM 05/03/2021 7:08 AM Full Code 05/01/2021 8:21 AM 05/01/2021 2:05 PM Full Code 05/09/2020 9:19 PM 05/11/2020 1:57 PM Documents on File Type Date Recorded Patient Infrastructure Administrator Expl anation Advance Directives and Livin g Will 02/18/2022 7:04 AM Latest Code Status on File Code Status Date Activated Date Inactivated Comments Full Code 05/14/2021 11:47 PM 05/16/2021 3:02 PM Full Code 05/14/2021 6:26 PM 05/14/2021 11:46 PM Full Code 05/03/2021 4:29 AM 05/03/2021 7:08 AM Documents on File Type Date Recorded Patient Infrastructure Administrator Expl anation Advance Directives and Livin g Will 03/25/2022 7:04 AM Latest Code Status on File Code Status Date Activated Date Inactivated Comments Full Code 05/14/2021 11:47 PM 05/16/2021 3:02 PM Code Status History Code Status Date Activated Date Inactivated Comments Full Code 05/14/2021 6:26 PM 05/14/2021 11:46 PM Full Code 05/03/2021 4:29 AM 05/03/2021 7:08 AM Full Code 05/01/2021 8:21 AM 05/01/2021 2:05 PM Full Code 05/09/2020 9:19 PM 05/11/2020 1:57 PM Latest Code Status on File Code Status Date Activated Date Inactivated Comments Full Code 05/14/2021 11:47 PM 05/16/2021 3:02 PM Code Status History Code Status Date Activated Date Inactivated Comments Full Code 05/14/2021 6:26 PM 05/14/2021 11:46 PM Full Code 05/03/2021 4:29 AM 05/03/2021 7:08 AM Full Code 05/01/2021 8:21 AM 05/01/2021 2:05 PM Full Code 05/09/2020 9:19 PM 05/11/2020 1:57 PM Latest Code Status on File Code Status Date Activated Date Inactivated Comments Full Code 12/31/2023 10:21 AM 01/02/2024 5:25 PM Code Status History Code Status Date Activated Date Inactivated Comments Full Code 05/14/2021 11:47 PM 05/16/2021 3:02 PM Full Code 05/14/2021 6:26 PM 05/14/2021 11:46 PM Full Code 05/03/2021 4:29 AM 05/03/2021 7:08 AM Full Code 05/01/2021 8:21 AM 05/01/2021 2:05 PM Latest Code Status on File Code Status Date Activated Date Inactivated Comments Full Code 12/31/2023 10:21 AM 01/02/2024 5:25 PM Code Status History Code Status Date Activated Date Inactivated Comments Full Code 05/14/2021 11:47 PM 05/16/2021 3:02 PM Full Code 05/14/2021 6:26 PM 05/14/2021 11:46 PM Full Code 05/03/2021 4:29 AM 05/03/2021 7:08 AM Full Code 05/01/2021 8:21 AM 05/01/2021 2:05 PM Date Activated Date Inactivated Comments 12/31/2023 10:21 AM 01/02/2024 5:25 PM Date Activated Date Inactivated Comments 05/14/2021 11:47 PM 05/16/2021 3:02 PM Date Activated Date Inactivated Comments 05/14/2021 6:26 PM 05/14/2021 11:46 PM Date Activated Date Inactivated Comments 05/03/2021 4:29 AM 05/03/2021 7:08 AM Date Activated Date Inactivated Comments 05/01/2021 8:21 AM 05/01/2021 2:05 PM Date Activated Date Inactivated Comments 12/31/2023 10:21 AM 01/02/2024 5:25 PM Date Activated Date Inactivated Comments 05/14/2021 11:47 PM 05/16/2021 3:02 PM Date Activated Date Inactivated Comments 05/14/2021 6:26 PM 05/14/2021 11:46 PM Date Activated Date Inactivated Comments 05/03/2021 4:29 AM 05/03/2021 7:08 AM Date Activated Date Inactivated Comments 05/01/2021 8:21 AM 05/01/2021 2:05 PM Advance Directive Response Recorded Date/ Time Do you have a Healthcare Power of [place]? No May 04, 2025 10:07am Reason for Referral Status Reason Specialty Diagnoses / Procedures Referred By Contact Referred To Contact New Request Family Medicine Diagnoses Vaginal candidiasis Em Nolen MD [address] [place] [address] Status Reason Specialty Diagnoses / Procedures Referred By Contact Referred To Contact New Request Family Medicine Diagnoses Left upper quadrant pain Matthew Hale PA [address] 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 [address] Specialty Diagnoses / Procedures Referred By Contac t Referred To Contact Cardiology Diagnoses Carotid artery disorder (HCC) Procedures Ultrasound duplex carotid Hector Cerna MD [address] [place] [id number] Referral ID Status Reason Start Date Expiration Date V isits Requested Visits Authorized [id number] Authorized 08/19/2023 08/18/2024 1 1 Specialty Diagnoses / Procedures Referred By Contac t Referred To Contact Radiology Diagnoses Goiter Procedures US Soft Tissue Neck Hector Cerna MD [address] [place] [address] Referral ID Status Reason Start Date Expiration Date V isits Requested Visits Authorized [id number] Authorized 08/19/2023 08/18/2024 1 1 Specialty Diagnoses / Procedures Referred By Contac t Referred To Contact Radiology Diagnoses Hyperthyroidism Procedures NM Thyroid Uptake And Scan Hector Cerna MD [address] [place] [address] Referral ID Status Reason Start Date Expiration Date V isits Requested Visits Authorized [id number] New Request 09/15/2023 09/14/2024 4 4 Specialty Diagnoses / Procedures Referred By Contac t Referred To Contact Hector Cerna MD [address] [place] [address] Referral ID Status Reason Start Date Expiration Date V isits Requested Visits Authorized [id number] Pending Review 1 1 Specialty Diagnoses / Procedures Referred By Contac t Referred To Contact Endocrinology Diagnoses Primary thyroid cancer (HCC) Hector Cerna MD [address] [place] [address] Andres August MD [address] [place] [address] Referral ID Status Reason Start Date Expiration Date V isits Requested Visits Authorized [id number] Authorized 01/13/2024 01/12/2025 1 1 Specialty Diagnoses / Procedures Referred By Contac t Referred To Contact Radiology Diagnoses Papillary thyroid carcinoma (HCC) Procedures US Soft Tissue Neck and Thyroid Andres August MD [address] [place] [address] Referral ID Status Reason Start Date Expiration Date V isits Requested Visits Authorized [id number] Authorized 04/19/2024 04/19/2025 1 1 Discharge Instructions The following attachments cannot be sent through Care Everywhere. * Yeast Infection, Vaginal (Grace Vaginal Infection) ([place]) in this encounter* Instructions* Morales Banerjee, - 04/23/2019 Thank you for allowing us to be involved in your care today. Please follow up as discussed during your stay. This information is included in your discharge paperwork. Appropriate follow up is essential in your continued care after today's visit. If you had any diagnostic studies (Labs, X-rays, CT-scan , Ultrasound or Cultures) have your Primary Care Physician (PCP) review them with you since there may be results that require further follow up or investigation. Return to the Emergency Department at any point with worsening conditions or concerns. The physician and staff of the Emergency Department would like to thank you for choosing our facility for your health care needs. Our goal is to provide exceptional service. You may be receiving a survey in the mail following your visit. Because your feedback is very important to us, we hope you will take the time to complete and return the survey. If for any reason, you feel that you cannot rateus Very Good or 5 for the service you received today, please let us know prior to your discharge. Please follow up with your family doctor or one of your choosing. You may find a provider through the [facility]ician Referral Service by calling [phone] or by visiting [email or web address] Thank You for choosing the [facility] Emergency Department! * Attachments The following attachments cannot be sent through Care Everywhere. * Vaginal Infection: Yeast (Candidiasis) ([place]) documented in this encounter* Instructions* Matthew Hale PA - 06/08/2019 Continue with your usual medications at the usual doses. Tylenol/Ibuprofen/Aleve for fever or pain. No more than 4000 mg of Tylenol or 2400 mg of Ibuprofen (Advil, Motrin) in a 24 hour period. Return here or nearest ER for uncontrolled fever, vomiting, difficulty breathing or difficulty swallowing. [facility] * Attachments The following attachments cannot be sent through Care Everywhere. * Abdominal Pain ([place]) documented in this encounter* Instructions* Morales Banerjee DO - 11/18/2020 Thank you for allowing us to be involved in your care today. Please follow up as discussed during your stay. This information is included in your discharge paperwork. Appropriate follow up is essential in your continued care after today's visit. If you had any diagnostic studies (Labs, X-rays, CT-scan , Ultrasound or Cultures) have your Primary Care Physician (PCP) review them with you since there may be results that require further follow up or investigation. Return to the Emergency Department at any point with worsening conditions or concerns. The physician and staff of the Emergency Department would like to thank you for choosing our facility for your health care needs. Our goal is to provide exceptional service. You may be receiving a survey in the mail following your visit. Because your feedback is very important to us, we hope you will take the time to complete and return the survey. If for any reason, you feel that you cannot rateus Very Good or 5 for the service you received today, please let us know prior to your discharge. Please follow up with your family doctor or one of your choosing. You may find a provider through the [facility]ician Referral Service by calling [phone] or by visiting [email or web address] Thank You for choosing the [facility] Emergency Department! [employer] [address] [place] [id number] Open 7 Days A Week Including Weekends Friday - Friday 9:00am - 9:00pm Friday 9:00am - 9:00pm Friday 9:00am - 9:00pm * Attachments The following attachments cannot be sent through Care Everywhere. * Tooth and Gum Pain ([place]) documented in this encounter* Attachments The following attachments cannot be sent through Care Everywhere. * Abdominal Pain ([place]) documented in this encounter The following attachments cannot be sent through Care Everywhere. * Sexually Transmitted Diseases (STDs), What Are ([place]) in this encounter* Attachments The following attachments cannot be sent through Care Everywhere. * UTI (Urinary Tract Infection): Female ([place]) documented in this encounter* Attachments The following attachments cannot be sent through Care Everywhere. 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 Need for influenza vaccination Need for prophylactic vaccination and inoculation against influenza Diagnosis Initial obstetric visit in first trimester Screening for malignant neoplasm of cervix Screening for malignant neoplasm of the cervix Screen for STD (sexually transmitted disease) Screening examination for venereal disease Multigravida in first trimester High-risk in first trimester Rubella non-immune status, antepartum 8 weeks gestation of Diagnosis Multigravida in first trimester Vaginal itching Pruritus of genital organs 13 weeks gestation of Screening for venereal disease Screening examination for venereal disease Rubella non-immune status, antepartum Diagnosis Encounter for screening Multigravida in second trimester High risk multigravida, second trimester Low-lying placenta in second trimester Breech presentation, single or unspecified fetus Rubella non-immune status, antepartum Encounter for screening for diabetes mellitus 25 weeks gestation of Diagnosis Encounter for ultrasound to assess growth Low-lying placenta in second trimester Breech presentation, single or unspecified fetus Encounter for repeat ultrasound for low lying placenta, antepartum Diagnosis Multigravida in third trimester Need for tetanus booster High risk multigravida, third trimester Rubella non-immune status, antepartum 29 weeks gestation of Diagnosis Normal vaginal delivery Normal delivery 37 weeks gestation of Single live Pain related to vaginal delivery Indication for care in labor and delivery, antepartum Unspecified indication for care or intervention related to labor and delivery, antepartum Full-term premature rupture of membranes with onset of labor within 24 hours of rupture Multigravida in third trimester High risk multigravida, third trimester Rubella non-immune status, antepartum Diagnosis Pain due to dental caries- Primary Diagnosis with fewer than 8 completed weeks gestation- Primary Urgency of urination Urgency of urination Encounter for supervision of normal first in first trimester Contact with and (suspected) exposure to human immunodeficiency virus (hiv) Encounter for screening for other viral diseases Diagnosis Encounter for routine screening for malformation using ultrasound- Primary Encounter to establish gestational age using ultrasound Encounter for routine screening for malformation using ultrasonics Late care Insufficient care Diagnosis LUQ abdominal pain- Primary Abdominal pain, left upper quadrant Diagnosis Exposure to sexually transmitted disease (STD)- Primary Contact with or exposure to venereal diseases Diagnosis Multigravida in second trimester LPNC- Primary Late care 18 wk, Insufficient care 19 weeks gestation of Screening for venereal disease Screening examination for venereal disease Screening for malignant neoplasm of cervix Screening for malignant neoplasm of the cervix Diagnosis Multigravida in second trimester LPNC- Primary Late care 18 wk, Insufficient care Rubella non-immune status, antepartum 23 weeks gestation of Diagnosis Encounter for routine screening for malformation using ultrasound Encounter for ultrasound to assess growth Low-lying placenta in second trimester Breech presentation, single or unspecified fetus Choroid plexus cyst Cerebral cysts Diagnosis Encounter to establish gestational age using ultrasound- Primary Encounter for routine screening for malformation using ultrasonics Threatened miscarriage in early Vaginal bleeding in , first trimester Diagnosis Multigravida in second trimester High risk multigravida, second trimester Low-lying placenta in second trimester Breech presentation, single or unspecified fetus Rubella non-immune status, antepartum 20 weeks gestation of Diagnosis Acute cystitis without hematuria- Primary Acute cystitis Diagnosis Multigravida in second trimester LPNC- Primary Encounter for screening Late care 18 wk, 1-2020 Insufficient care 27 weeks gestation of Rubella non-immune status, antepartum Encounter for screening for diabetes mellitus Diagnosis Multigravida in second trimester 16 weeks gestation of Rubella non-immune status, antepartum High risk multigravida, second trimester Encounter for screening Diagnosis Dysuria during in second trimester- Primary History of Present Illness * Reebcca Martinez LPN - 10/11/2019 10:04 AM EST Patient is here for her OB Interview. Patient was provided with information regarding after hours call and which facilities in our area provide OB care. Patient was counseled on precautions in such as vaginal bleeding, leaking of fluid and decreased movement in third trimester. Patient was provided education pamphlets regarding tobacco,drug and caffeine use during . A medication list was given that provides safe over the counter meds that they may use in . Patients smoking former, quit a few weeks ago Flu shot (offered between August - January) no Date of last pap 7 years ago. Vaginal bleeding:no Vaginal discharge:no Leaking of fluid:no Problems:no Lab Draw on 09/21/2019 Component Date Value Ref Range Status hCG Quant 09/21/2019 131* 0 - 5 mIU/mL Final documented in this encounter* Akil Rossi MD - 10/25/2019 11:04 AM EST Chief Complaint: Chief Complaint Patient presents with Initial Visit NOBS OB History Para Term AB Living 2 1 1 SAB TAB Ectopic Multiple Live Births 1 # Outcome Date GA Lbr Del/2nd Weight Sex Delivery Anes PTL Lv 2 Current 1 Term 03/06/12 40w0d 3.827 kg (8 lb 7 oz) M Vag-Spont EPI N OCT Comments: Healthy . baby passed at age 7 of Hemophagocytic Lymphohistiocytosis HPI: Toni Jacobson 29 y.o. Estimated Date of Delivery: 05/30/20 8w6d presents today for New obstetrical exam. She is aware of her final due date, and definition of and term. Her labs are reviewed with her also. We discussed activity and dietary changes ( like reducing carbs and fast foods) for a healthier , baby and easier delivery. She is aware to avoid alcohol & tobacco products, limit caffeine, avoid gaining > 30 pounds and avoid heavy lifting / standing/working > 8 hrs / day. Some common approaches to nausea such as 6 small meals a day, hydration (electrolytes), dez products , Vitamin B6 and Unisom may also help. Location of her pain: pelvis. Quality:dull and cramping. Severity: mild Duration: several weeks. Timing: activity and random at times Modifying factors : rest. Associated signs /symptoms: noncontributory. Allergies: no known allergies. Patient has no known allergies. Outpatient Medications as of 10/25/2019 Medication Sig flu vacc qs 2018-, 6 mos up, (FLUZONE QUAD/FLULAVAL QUAD/AFLURIA QUAD) injection Sign this order in conjunction with the immunization order to satisfy [place] Board [employer] Pharmacy Positive ID requirements for immunization orders. . metoclopramide (REGLAN) 10 MG tablet Take 1 (one) tablet (10 mg total) by mouth 4 (four) times a day as needed (Nausea with vomiting) . (Patient not taking: Reported on 10/11/2019 .) vit-iron fum-folic ac 28 mg iron- 800 mcg Tab Take 1 tablet by mouth daily . Shimon Toni Home Medication Instructions Prior to Surgery KRISTEN: Printed on:10/25/19 [id number] Medication Information Take last dose on Take the morning of surgery Comment(s) flu vacc qs 2018-, 6 mos up, (FLUZONE QUAD/FLULAVAL QUAD/AFLURIA QUAD) injection Sign this order in conjunction with the immunization order to satisfy [place] Board [employer] Pharmacy Positive ID requirements for immunization orders. . metoclopramide (REGLAN) 10 MG tablet Take 1 (one) tablet (10 mg total) by mouth 4 (four) times a day as needed (Nausea with vomiting) . vit-iron fum-folic ac 28 mg iron- 800 mcg Tab Take 1 tablet by mouth daily . Past Medical History: Diagnosis Date High-risk in first trimester 09/24/2019 Rubella non-immune status, antepartum 10/11/2019 OB History Para Term AB Living 2 1 1 SAB TAB Ectopic Multiple Live Births 1 # Outcome Date GA Lbr Del/2nd Weight Sex Delivery Anes PTL Lv 2 Current 1 Term 03/06/12 40w0d 3.827 kg (8 lb 7 oz) M Vag-Spont EPI N DEC Comments: Healthy . baby passed at age 7 of Hemophagocytic Lymphohistiocytosis No past surgical history on file. No family history on file. Social History Tobacco Use Smoking status: Former Smoker Packs/day: 0.00 Smokeless tobacco: Never Used Substance Use Topics Alcohol use: Not Currently Drug use: Never Social History Substance and Sexual Activity Alcohol Use Not Currently Social History Substance and Sexual Activity Drug Use Never Social History Tobacco Use Smoking Status Former Smoker Packs/day: 0.00 Smokeless Tobacco Never Used OB History Para Term AB Living 2 1 1 0 0 0 SAB TAB Ectopic Multiple Live Births 0 0 0 0 1 # Outcome Date GA Lbr Del/2nd Weight Sex Delivery Anes PTL Lv 2 Current 1 Term 03/06/12 40w0d 3.827 kg (8 lb 7 oz) M Vag-Spont EPI N DEC Comments: Healthy . baby passed at age 7 of Hemophagocytic Lymphohistiocytosis O Positive Review of Systems Systems: Constitutional Symptoms No nausea, no vomiting, no fever, chills, no unexpected weight changes, noted fatigue, no headaches, some loss of appetite, +/- sleep disturbances Eyes No pain, discharge, inflammation, spots, diplopia,photophobia, new problems with vision or other any other symptoms Head, Ears, Noes, Throat, Mouth No recent head trauma, ear or neck pain, photophobia, changes in hearing / vision, dysphagia, throat or nose problems. No new teeth/gum problems Cardiovascular No chest pain, palpitations, syncope, cyanosis or unexpected dyspnea and no edema Respiratory No tachypnea, wheezing or unexpected breathing problems, cough / sputum Gastrointestinal No upper abdominal pain, dysphagia, blood in stool, dark tarry stools, jaundice, no unexpected changes in bowel habits, incontinence, no constipation , no food intolerance Female Genitourinary No changes in sexual activity, no bleeding, no pelvic pain, & no vaginal discharge Bladder No new bladder problems, no hematuria, no hesitancy, frequency, & dysuria Musculoskeletal No any new musculoskeletal problems Skin (Breast) No new changes in her skin, moles, hair patterns, acne, breast discomfort or discharge Neurological No paresthesia or numbness, tremors, vertigo, local weakness Psychiatric No unexpected anxiety, depression, moods, stress. Negative domestic violence screening Endocrine No temperature intolerance, changes in hair or skin texture, unexpected weight changes, excessive sweating Hematologic & Lymphatic No unexpected bruising, swelling of lymph nodes, prolonged bleeding Immunologic No problems with seasonal allergies or symptoms Physical exam Vitals - 10/25/19 1055 Assessment Movement Absent OB Urine Dip Urine Albumin Negative Urine Glucose Negative Ketones Negative Vitals: 10/25/19 1055 BP: 110/75 Weight: 64.9 kg (143 lb) Height: 5' 4 RR=16 -538.4 kg (-1187 lb) Vitals - 10/25/19 1055 Assessment Heart Rate 160 Fundal Height (cm) 10 Movement Absent OB Urine Dip Urine Albumin Negative Urine Glucose Negative Ketones Negative Dilation/Effacement/Station Dilation 0 Effacement (%) 0 Station -4 Vaginal Drainage Draining Fluid No Fluid Odor None Fluid Amount None Edema LLE Edema None RLE Edema None Facial Edema None Body mass index is 24.55 kg/m . General Appearance: Well developed, well nourished No acute distress. A &O person, place, time, and situation. Comfort Level: She looks comfortable Level of Consciousness: Alert Appearance: Appropriate Head:Face Normal, atraumatic Eyes: General inspection, normal. Conjunctiva and lids normal Neck (Inspection/ palpation) Symmetric, trachea Midline, no mass or JVD. Normal palpation THYROID: Normal contour, no tenderness, no enlargement, no mass Respiratory: Assessment of effort: no intercostal retractions or use of accessory muscles Clear breath sounds bilaterally, no wheezes or rhonchi. Breath sounds normal Cardiovascular: Auscultation: normal rate, regular rhythm. normal S1, S2, no murmur: no rub / gallop Peripheral: : no cyanosis. No tenderness Varicosities: no Edema: no Breast: LEFT: Symmetric, normal contour No expressible discharge, normal tissue, appropriately tender, no suspicious nodules, no mass RIGHT: Symmetric, normal contour No expressible discharge, normal tissue, appropriately tender, no suspicious nodules, no mass Abdomen: Soft, no tenderness, non distended, no masses, organ enlargement, no hernia Hernia: No hernias Genitourinary: External genitalia: Normal for age, no lesions, discharge, rash Labia normal [place] & Clitoris Normal, no rash lesions Urethral meatus: Normal size and location, no lesions or discharge, nontender [place]'s ducts normal Urethra: No mass, discharge, no tenderness Bladder: No fullness, discharge, no tenderness Introitus: Normal, no tenderness Bartholin's gland normal Vagina: Healthy, No injury, foreign body, lesions, no discharge, Cervix normal appearance, no tenderness, no lesions, No discharge Uterus: 10wk size and acceptable position, midline, mobile, no tenderness Adnexa: LEFT: No tenderness, normal size, mobile, appropriate RIGHT: No tenderness, normal size, mobile, appropriate Cul de sac: Normal, no tenderness, no nodularity Anus and perineum: Normal tone noted, no lesions Rectal exam: Deferred Skin Inspection and palpation reveals no mass, bruising, ecchymosis or petechiae, No rash or suspicious lesions Mental health Judgment and insight: Appropriate and good insight Orientation: oriented to time, place, and person Recent and remote memory: Both appear to be intact Mood and affect: She is her usual self. Pleasantmood and appropriate affect. No apparent depression, no inappropriate anxiety Lymph nodes Cervical: no adenopathy Axillary: no adenopathy Inguinal: no adenopathy Lab Draw on 10/11/2019 Component Date Value Ref Range Status HIV 1-2 Screen 10/11/2019 Negative Negative Final Culture 10/11/2019 One or more organisms < 10,000 CFU/mL of normal urogenital microbiota. Not processed further. Final Color, Urine 10/11/2019 Yellow Colorless, Yellow Final Clarity, Urine 10/11/2019 Hazy* Clear Final Specific Ellinger 10/11/2019 1.029* 1.005 - 1.025 Final pH, Urine 10/11/2019 5.0 5.0 - 7.0 Final Protein, Urine 10/11/2019 Negative Negative mg/dL Final Glucose, Urine 10/11/2019 Negative Negative mg/dL Final Ketones, Urine 10/11/2019 Negative Negative mg/dL Final Bilirubin, Urine 10/11/2019 Negative Negative Final Urobilinogen, Urine 10/11/2019 <2.0 <2.0 mg/dL Final Blood, Urine 10/11/2019 Negative Negative Final Nitrite, Urine 10/11/2019 Negative Negative Final Leukocyte Esterase, Urine 10/11/2019 Negative Negative Final WBCs, Urine 10/11/2019 1 0 - 5 /hpf Final RBCs, Urine 10/11/2019 <1 0 - 3 /hpf Final Bacteria, Urine 10/11/2019 None Seen None Seen /hpf Final Squamous Epithelial 10/11/2019 5* 0 - 4 /hpf Final Mucus, Urine 10/11/2019 Rare None Seen, Rare /lpf Final Hepatitis B Surface Ag 10/11/2019 Negative Negative Final WBC 10/11/2019 7.93 4.50 - 11.00 K/mcL Final RBC 10/11/2019 3.80* 4.00 - 5.20 M/mcL Final Hemoglobin 10/11/2019 11.8* 12.0 - 16.0 g/dL Final Hematocrit 10/11/2019 34.8* 36.0 - 46.0 % Final MCV 10/11/2019 91.6 80.0 - 100.0 fL Final MCH 10/11/2019 31.1 26.0 - 34.0 pg Final MCHC 10/11/2019 33.9 31.0 - 37.0 g/dL Final Platelets 10/11/2019 218 150 - 400 K/mcL Final RDW - CV 10/11/2019 12.2 11.6 - 14.8 % Final MPV 10/11/2019 10.4 9.0 - 15.5 fL Final Neutrophils 10/11/2019 57.9 % Final Lymphocytes 10/11/2019 32.2 % Final Monocytes 10/11/2019 8.2 % Final Eosinophils 10/11/2019 0.9 % Final Basophils 10/11/2019 0.4 % Final IG Percent 10/11/2019 0.40 % Final The IG parameter is the percentage of metamyelocytes, myelocytes, and promyelocytes. Neutrophils Abs 10/11/2019 4.60 1.70 - 7.00 K/mcL Final Lymphocytes Abs 10/11/2019 2.55 0.90 - 4.00 K/mcL Final Monocytes Abs 10/11/2019 0.65 0.30 - 0.90 K/mcL Final Eosinophils Abs 10/11/2019 0.07 0.00 - 0.50 K/mcL Final Basophils Abs 10/11/2019 0.03 0.00 - 0.30 K/mcL Final IG Absolute 10/11/2019 0.03 0.00 - 0.30 K/mcL Final Nucleated RBC 10/11/2019 0.0 % Final Nucleated RBC Abs 10/11/2019 0.00 0.00 - 0.00 K/mcL Final RPR 10/11/2019 Non-Reactive Non-Reactive Final Rubella IgG Value 10/11/2019 10.4 IU/mL Final Rubella IgG 10/11/2019 Equivocal Final ABORh 10/11/2019 O Positive Final Antibody Screen 10/11/2019 Negative Final Specimen Expires 10/11/2019 10/14/2019 23:59 EST Final Lab Draw on 09/21/2019 Component Date Value Ref Range Status hCG Quant 09/21/2019 131* 0 - 5 mIU/mL Final Follow up soon for an ultrasound and follow up office visit if discomfort and pain worsens. ? Potential causes considered, such as abnormal , ectopic , threatened miscarriage, endocrinopathy, systemic diseases (eg kidney/liver), infectious etiology, urologic, gastrointestinal , musculoskeletal causes and gynecologic anatomic abnormalities. ? Workup reviewed: labs, radiologic imaging. ? Treatment options reviewed for discomfort: none, OTC remedies, massage, physical and chiropractictherapy. ? Handouts provided to her. ? Treatment decision to follow once workup complete. Number of diagnosis / management options: Limited Options reviewed include observation, medical and surgical / procedural possibilities. Amount and /or complexity of data reviewed: Moderate Risk of complications and/or morbidity or mortality: Low OB History Para Term AB Living 2 1 1 0 0 0 SAB TAB Ectopic Multiple Live Births 0 0 0 0 1 # Outcome Date GA Lbr Del/2nd Weight Sex Delivery Anes PTL Lv 2 Current 1 Term 03/06/12 40w0d 3.827 kg (8 lb 7 oz) M Vag-Spont EPI N DEC Comments: Healthy . baby passed at age 9 of Hemophagocytic Lymphohistiocytosis Assessment/Plan: Pt is a 29 y.o. at 8w6d who presents for NOB visit Antepartum care Return as scheduled CAREPLAN Diagnoses and all orders for this visit: Initial obstetric visit in first trimester - Thinprep Pap Smear Screening for malignant neoplasm of cervix - Thinprep Pap Smear Screen for STD (sexually transmitted disease) - Chlamydia/GC/Trichomonas Amplified RNA - Chlamydia/Gonorrhoeae Amplified RNA - Trichomonas vaginalis Amplified RNA Multigravida in first trimester High-risk in first trimester Rubella non-immune status, antepartum 8 weeks gestation of Akil Rossi MD 10/25/19 * Hellen Martinez MA - 10/25/2019 10:57 AM EST 8w6d Chief Complaint Patient presents with Initial Visit NOBS OB History Para Term AB Living 2 1 1 0 0 0 SAB TAB Ectopic Multiple Live Births 0 0 0 0 1 # Outcome Date GA Lbr Del/2nd Weight Sex Delivery Anes PTL Lv 2 Current 1 Term 03/06/12 40w0d 3.827 kg (8 lb 7 oz) M Vag-Spont EPI N DEC Comments: Healthy . baby passed at age 9 of Hemophagocytic Lymphohistiocytosis Lab Draw on 10/11/2019 Component Date Value Ref Range Status HIV 1-2 Screen 10/11/2019 Negative Negative Final Culture 10/11/2019 One or more organisms < 10,000 CFU/mL of normal urogenital microbiota. Not processed further. Final Color, Urine 10/11/2019 Yellow Colorless, Yellow Final Clarity, Urine 10/11/2019 Hazy* Clear Final Specific Ellinger 10/11/2019 1.029* 1.005 - 1.025 Final pH, Urine 10/11/2019 5.0 5.0 - 7.0 Final Protein, Urine 10/11/2019 Negative Negative mg/dL Final Glucose, Urine 10/11/2019 Negative Negative mg/dL Final Ketones, Urine 10/11/2019 Negative Negative mg/dL Final Bilirubin, Urine 10/11/2019 Negative Negative Final Urobilinogen, Urine 10/11/2019 <2.0 <2.0 mg/dL Final Blood, Urine 10/11/2019 Negative Negative Final Nitrite, Urine 10/11/2019 Negative Negative Final Leukocyte Esterase, Urine 10/11/2019 Negative Negative Final WBCs, Urine 10/11/2019 1 0 - 5 /hpf Final RBCs, Urine 10/11/2019 <1 0 - 3 /hpf Final Bacteria, Urine 10/11/2019 None Seen None Seen /hpf Final Squamous Epithelial 10/11/2019 5* 0 - 4 /hpf Final Mucus, Urine 10/11/2019 Rare None Seen, Rare /lpf Final Hepatitis B Surface Ag 10/11/2019 Negative Negative Final WBC 10/11/2019 7.93 4.50 - 11.00 K/mcL Final RBC 10/11/2019 3.80* 4.00 - 5.20 M/mcL Final Hemoglobin 10/11/2019 11.8* 12.0 - 16.0 g/dL Final Hematocrit 10/11/2019 34.8* 36.0 - 46.0 % Final MCV 10/11/2019 91.6 80.0 - 100.0 fL Final MCH 10/11/2019 31.1 26.0 - 34.0 pg Final MCHC 10/11/2019 33.9 31.0 - 37.0 g/dL Final Platelets 10/11/2019 218 150 - 400 K/mcL Final RDW - CV 10/11/2019 12.2 11.6 - 14.8 % Final MPV 10/11/2019 10.4 9.0 - 15.5 fL Final Neutrophils 10/11/2019 57.9 % Final Lymphocytes 10/11/2019 32.2 % Final Monocytes 10/11/2019 8.2 % Final Eosinophils 10/11/2019 0.9 % Final Basophils 10/11/2019 0.4 % Final IG Percent 10/11/2019 0.40 % Final The IG parameter is the percentage of metamyelocytes, myelocytes, and promyelocytes. Neutrophils Abs 10/11/2019 4.60 1.70 - 7.00 K/mcL Final Lymphocytes Abs 10/11/2019 2.55 0.90 - 4.00 K/mcL Final Monocytes Abs 10/11/2019 0.65 0.30 - 0.90 K/mcL Final Eosinophils Abs 10/11/2019 0.07 0.00 - 0.50 K/mcL Final Basophils Abs 10/11/2019 0.03 0.00 - 0.30 K/mcL Final IG Absolute 10/11/2019 0.03 0.00 - 0.30 K/mcL Final Nucleated RBC 10/11/2019 0.0 % Final Nucleated RBC Abs 10/11/2019 0.00 0.00 - 0.00 K/mcL Final RPR 10/11/2019 Non-Reactive Non-Reactive Final Rubella IgG Value 10/11/2019 10.4 IU/mL Final Rubella IgG 10/11/2019 Equivocal Final ABORh 10/11/2019 O Positive Final Antibody Screen 10/11/2019 Negative Final Specimen Expires 10/11/2019 10/14/2019 23:59 EST Final Lab Draw on 09/21/2019 Component Date Value Ref Range Status hCG Quant 09/21/2019 131* 0 - 5 mIU/mL Final Any vaginal bleeding? no Any vaginal discharge? no Any leaking of fluid? no Feeling movement? no Having any contractions? no Any other problems? Denies documented in this encounter* Akil Rossi MD - 11/29/2019 1:38 PM EST Subjective: Toni Jacobson is a 29 y.o. Estimated Date of Delivery: 05/30/20 13w6d is being seen today for her return OB visit. Chief Complaint Patient presents with Routine Visit ROBS Vaginitis Itching OB History Para Term AB Living 2 1 1 0 0 0 SAB TAB Ectopic Multiple Live Births 0 0 0 0 1 # Outcome Date GA Lbr Del/2nd Weight Sex Delivery Anes PTL Lv 2 Current 1 Term 03/06/12 40w0d 3.827 kg (8 lb 7 oz) M Vag-Spont EPI N DEC Comments: Healthy . baby passed at age 7 of Hemophagocytic Lymphohistiocytosis Allergies: no known allergies. Patient has no known allergies. Outpatient Medications as of 11/29/2019 Medication Sig vit-iron fum-folic ac 28 mg iron- 800 mcg Tab Take 1 tablet by mouth daily . flu vacc qs 2018-, 6 mos up, (FLUZONE QUAD/FLULAVAL QUAD/AFLURIA QUAD) injection Sign this order in conjunction with the immunization order to satisfy [place] Board [employer] Pharmacy Positive ID requirements for immunization orders. . metoclopramide (REGLAN) 10 MG tablet Take 1 (one) tablet (10 mg total) by mouth 4 (four) times a day as needed (Nausea with vomiting) . (Patient not taking: Reported on 10/11/2019 .) Toni Jacobson Home Medication Instructions Prior to Surgery KRISTEN: Printed on:11/29/19 2227 Medication Information Take last dose on Take the morning of surgery Comment(s) flu vacc qs 2018-, 6 mos up, (FLUZONE QUAD/FLULAVAL QUAD/AFLURIA QUAD) injection Sign this order in conjunction with the immunization order to satisfy [place] Board [employer] Pharmacy Positive ID requirements for immunization orders. . metoclopramide (REGLAN) 10 MG tablet Take 1 (one) tablet (10 mg total) by mouth 4 (four) times a day as needed (Nausea with vomiting) . vit-iron fum-folic ac 28 mg iron- 800 mcg Tab Take 1 tablet by mouth daily . Past Medical History: Diagnosis Date High-risk in first trimester 09/24/2019 Rubella non-immune status, antepartum 10/11/2019 History reviewed. No pertinent surgical history. History reviewed. No pertinent family history. Social History Tobacco Use Smoking status: Former Smoker Packs/day: 0.00 Smokeless tobacco: Never Used Substance Use Topics Alcohol use: Not Currently Drug use: Never Social History Substance and Sexual Activity Alcohol Use Not Currently Social History Substance and Sexual Activity Drug Use Never Social History Tobacco Use Smoking Status Former Smoker Packs/day: 0.00 Smokeless Tobacco Never Used Review of Systems Systems: Constitutional Symptoms No vomiting, no fever,chills, no unexpected weight changes,no headaches, noloss of appetite Eyes Denies pain, discharge, inflammation, problems with vision, photophobia, diplopia spots Head, Ears, Noes, Throat, Mouth Denies head trauma, ear or neck pain, changes in hearing, dysphagia, throat problems Cardiovascular Denies chest pain, palpitations, syncope, cyanosis or unexpected dyspnea or edema Respiratory Denies tachypnea, wheezing or unexpected breathing problems, cough / sputum Gastrointestinal No upper abdominal pain,no anorexia, dysphagia, blood in stool, dark tarry stools,jaundice, no unexpected changes in bowel habits, no constipation, no food intolerance Female Genitourinary No changes in sexual activity, no bleeding , No?? vaginal discharge Bladder No new bladder problems, such as hematuria, hesitancy, No dysuria, pain Musculoskeletal Denies any other musculoskeletal problems Skin (Breast) No new changes in her skin, moles, hair patterns, acne, rashes Neurological No paresthesia or numbness, local weakness Psychiatric No unexpected anxiety, depression, moods, stress. Negative domestic violence screening Endocrine Denies unexpected excessive sweating, changes in skin or hair texure Hematologic & Lymphatic Denies unexpected bruising, swelling of lymph nodes, prolonged bleeding Immunologic Denies problems with seasonal allergies /symptoms Objective: Vitals - 11/29/19 1312 OB Urine Dip Urine Albumin Trace Urine Glucose Negative Vitals: 11/29/19 1316 BP: 122/70 Pulse: 70 Weight: 65.3 kg (144 lb) Height: 5' 4 RR=16 Vitals - 11/29/19 1312 Assessment Heart Rate 150 Fundal Height (cm) 14 Movement Absent Presentation Breech OB Urine Dip Urine Albumin Trace Urine Glucose Negative Dilation/Effacement/Station Dilation 0 Effacement (%) 0 Station -4 Vaginal Drainage Draining Fluid No Fluid Odor None Fluid Amount None Edema LLE Edema None RLE Edema None Facial Edema None Body mass index is 24.72 kg/m . TWG=-538 kg (-1186 lb) General Appearance: A &O person, place, time, and situation. Nutrition and Development: Female, normal development Healthy, well developed, well nourished Comfort Level: In no acute distress. Level of Consciousness: Alert Appearance: Appropriate Head:Face Normal, atraumatic Eyes: General inspection, normal. Conjunctiva and lids normal Respiratory: Assessment of effort: no intercostal retractions or use of accessory muscles Looks comfortable. Abdomen: Soft, no tenderness, nondistended, no masses Hernia: No hernias Uterus: Gravid. S=D Mental health Judgment and insight: Appropriate and good insight Orientation: oriented to time, place, and person Recent and remote memory: Both appear to be intact Mood and affect:She is her usual self. Pleasant mood and appropriate affect. No apparent depression or inappropriate anxiety Initial on 10/25/2019 Component Date Value Ref Range Status Case Report 10/25/2019 Final Value:Gynecologic Cytology Report Case: [id number] Authorizing Provider: Akil Rossi MD Collected: 10/25/2019 11:17 AM Ordering Location: [facility] Received: 10/26/2019 09:56 AM Obstetrics and Gynecology First Screen: Amalia Bermudez Specimen: THINPREP PAP SMEAR, MEDICARE, Cervix / Endocervix LMP 10/25/2019 na Final Interpretation 10/25/2019 Negative for intraepithelial lesion or malignancy Final Specimen Adequacy 10/25/2019 Satisfactory for evaluation; transformation zone/endocervical component present Final Educational Note 10/25/2019 Final Value:The Pap smear is a screening test for the detection of cervical cancer and its precursor lesions. False positive and false negative results can occur. The test should be performed at regular intervals, and positive results should be confirmed before definitive therapy. Additional testing methods may be helpful in detecting abnormalities or in clinical management. Specimen Processing and Primary Screening performed at: [facility] - [address] [place] [address] Chlamydia trachomatis Amplified RNA 10/25/2019 NEGATIVE Negative Final Neisseria gonorrhoeae Amplfied RNA 10/25/2019 NEGATIVE Negative Final Trichomonas vaginalis Amplified RNA 10/25/2019 NEGATIVE Negative Final Lab Draw on 10/11/2019 Component Date Value Ref Range Status HIV 1-2 Screen 10/11/2019 Negative Negative Final Culture 10/11/2019 One or more organisms < 10,000 CFU/mL of normal urogenital microbiota. Not processed further. Final Color, Urine 10/11/2019 Yellow Colorless, Yellow Final Clarity, Urine 10/11/2019 Hazy* Clear Final Specific Ellinger 10/11/2019 1.029* 1.005 - 1.025 Final pH, Urine 10/11/2019 5.0 5.0 - 7.0 Final Protein, Urine 10/11/2019 Negative Negative mg/dL Final Glucose, Urine 10/11/2019 Negative Negative mg/dL Final Ketones, Urine 10/11/2019 Negative Negative mg/dL Final Bilirubin, Urine 10/11/2019 Negative Negative Final Urobilinogen, Urine 10/11/2019 <2.0 <2.0 mg/dL Final Blood, Urine 10/11/2019 Negative Negative Final Nitrite, Urine 10/11/2019 Negative Negative Final Leukocyte Esterase, Urine 10/11/2019 Negative Negative Final WBCs, Urine 10/11/2019 1 0 - 5 /hpf Final RBCs, Urine 10/11/2019 <1 0 - 3 /hpf Final Bacteria, Urine 10/11/2019 None Seen None Seen /hpf Final Squamous Epithelial 10/11/2019 5* 0 - 4 /hpf Final Mucus, Urine 10/11/2019 Rare None Seen, Rare /lpf Final Hepatitis B Surface Ag 10/11/2019 Negative Negative Final WBC 10/11/2019 7.93 4.50 - 11.00 K/mcL Final RBC 10/11/2019 3.80* 4.00 - 5.20 M/mcL Final Hemoglobin 10/11/2019 11.8* 12.0 - 16.0 g/dL Final Hematocrit 10/11/2019 34.8* 36.0 - 46.0 % Final MCV 10/11/2019 91.6 80.0 - 100.0 fL Final MCH 10/11/2019 31.1 26.0 - 34.0 pg Final MCHC 10/11/2019 33.9 31.0 - 37.0 g/dL Final Platelets 10/11/2019 218 150 - 400 K/mcL Final RDW - CV 10/11/2019 12.2 11.6 - 14.8 % Final MPV 10/11/2019 10.4 9.0 - 15.5 fL Final Neutrophils 10/11/2019 57.9 % Final Lymphocytes 10/11/2019 32.2 % Final Monocytes 10/11/2019 8.2 % Final Eosinophils 10/11/2019 0.9 % Final Basophils 10/11/2019 0.4 % Final IG Percent 10/11/2019 0.40 % Final The IG parameter is the percentage of metamyelocytes, myelocytes, and promyelocytes. Neutrophils Abs 10/11/2019 4.60 1.70 - 7.00 K/mcL Final Lymphocytes Abs 10/11/2019 2.55 0.90 - 4.00 K/mcL Final Monocytes Abs 10/11/2019 0.65 0.30 - 0.90 K/mcL Final Eosinophils Abs 10/11/2019 0.07 0.00 - 0.50 K/mcL Final Basophils Abs 10/11/2019 0.03 0.00 - 0.30 K/mcL Final IG Absolute 10/11/2019 0.03 0.00 - 0.30 K/mcL Final Nucleated RBC 10/11/2019 0.0 % Final Nucleated RBC Abs 10/11/2019 0.00 0.00 - 0.00 K/mcL Final RPR 10/11/2019 Non-Reactive Non-Reactive Final Rubella IgG Value 10/11/2019 10.4 IU/mL Final Rubella IgG 10/11/2019 Equivocal Final ABORh 10/11/2019 O Positive Final Antibody Screen 10/11/2019 Negative Final Specimen Expires 10/11/2019 10/14/2019 23:59 EST Final Assessment: Pt is a 29 y.o. at 13w6d who presents for ZACHARY OB History Para Term AB Living 2 1 1 0 0 0 SAB TAB Ectopic Multiple Live Births 0 0 0 0 1 # Outcome Date GA Lbr Del/2nd Weight Sex Delivery Anes PTL Lv 2 Current 1 Term 03/06/12 40w0d 3.827 kg (8 lb 7 oz) M Vag-Spont EPI N OCT Comments: Healthy . baby passed at age 9 of Hemophagocytic Lymphohistiocytosis Plan: [facility] Diagnoses and all orders for this visit: Multigravida in first trimester Vaginal itching 13 weeks gestation of Screening for venereal disease - Chlamydia/GC/Trichomonas Amplified RNA - Vaginitis DNA Probes; Future - Vaginitis DNA Probes - Chlamydia/Gonorrhoeae Amplified RNA - Trichomonas vaginalis Amplified RNA Rubella non-immune status, antepartum Consider tetra screening at her next visit. Dietary and activity changes for a healthy weight gain during her . Risk reduction strategies. Vaccinations when appropriate. Return in [address] Akil Rossi MD , FACOG 11/29/19 * Rebecca Martinez LPN - 11/29/2019 1:12 PM EST Vaginal bleeding:no Vaginal discharge:no Leaking of fluid:no Problems:noted, vaginal itching, denies any discharge, uses monistat with relief but does come backafter a week. Has happened multiple times in the last few weeks. Initial on 10/25/2019 Component Date Value Ref Range Status Case Report 10/25/2019 Final Value:Gynecologic Cytology Report Case: [id number] Authorizing Provider: Akil Rossi MD Collected: 10/25/2019 11:17 AM Ordering Location: [facility] Received: 10/26/2019 09:56 AM Obstetrics and Gynecology First Screen: Amaliasafia Bermudez Specimen: THINPREP PAP SMEAR, MEDICARE, Cervix / Endocervix LMP 10/25/2019 na Final Interpretation 10/25/2019 Negative for intraepithelial lesion or malignancy Final Specimen Adequacy 10/25/2019 Satisfactory for evaluation; transformation zone/endocervical component present Final Educational Note 10/25/2019 Final Value:The Pap smear is a screening test for the detection of cervical cancer and its precursor lesions. False positive and false negative results can occur. The test should be performed at regular intervals, and positive results should be confirmed before definitive therapy. Additional testing methods may be helpful in detecting abnormalities or in clinical management. Specimen Processing and Primary Screening performed at: [facility] - [address] [place] [address] Chlamydia trachomatis Amplified RNA 10/25/2019 NEGATIVE Negative Final Neisseria gonorrhoeae Amplfied RNA 10/25/2019 NEGATIVE Negative Final Trichomonas vaginalis Amplified RNA 10/25/2019 NEGATIVE Negative Final Lab Draw on 10/11/2019 Component Date Value Ref Range Status HIV 1-2 Screen 10/11/2019 Negative Negative Final Culture 10/11/2019 One or more organisms < 10,000 CFU/mL of normal urogenital microbiota. Not processed further. Final Color, Urine 10/11/2019 Yellow Colorless, Yellow Final Clarity, Urine 10/11/2019 Hazy* Clear Final Specific Ellinger 10/11/2019 1.029* 1.005 - 1.025 Final pH, Urine 10/11/2019 5.0 5.0 - 7.0 Final Protein, Urine 10/11/2019 Negative Negative mg/dL Final Glucose, Urine 10/11/2019 Negative Negative mg/dL Final Ketones, Urine 10/11/2019 Negative Negative mg/dL Final Bilirubin, Urine 10/11/2019 Negative Negative Final Urobilinogen, Urine 10/11/2019 <2.0 <2.0 mg/dL Final Blood, Urine 10/11/2019 Negative Negative Final Nitrite, Urine 10/11/2019 Negative Negative Final Leukocyte Esterase, Urine 10/11/2019 Negative Negative Final WBCs, Urine 10/11/2019 1 0 - 5 /hpf Final RBCs, Urine 10/11/2019 <1 0 - 3 /hpf Final Bacteria, Urine 10/11/2019 None Seen None Seen /hpf Final Squamous Epithelial 10/11/2019 5* 0 - 4 /hpf Final Mucus, Urine 10/11/2019 Rare None Seen, Rare /lpf Final Hepatitis B Surface Ag 10/11/2019 Negative Negative Final WBC 10/11/2019 7.93 4.50 - 11.00 K/mcL Final RBC 10/11/2019 3.80* 4.00 - 5.20 M/mcL Final Hemoglobin 10/11/2019 11.8* 12.0 - 16.0 g/dL Final Hematocrit 10/11/2019 34.8* 36.0 - 46.0 % Final MCV 10/11/2019 91.6 80.0 - 100.0 fL Final MCH 10/11/2019 31.1 26.0 - 34.0 pg Final MCHC 10/11/2019 33.9 31.0 - 37.0 g/dL Final Platelets 10/11/2019 218 150 - 400 K/mcL Final RDW - CV 10/11/2019 12.2 11.6 - 14.8 % Final MPV 10/11/2019 10.4 9.0 - 15.5 fL Final Neutrophils 10/11/2019 57.9 % Final Lymphocytes 10/11/2019 32.2 % Final Monocytes 10/11/2019 8.2 % Final Eosinophils 10/11/2019 0.9 % Final Basophils 10/11/2019 0.4 % Final IG Percent 10/11/2019 0.40 % Final The IG parameter is the percentage of metamyelocytes, myelocytes, and promyelocytes. Neutrophils Abs 10/11/2019 4.60 1.70 - 7.00 K/mcL Final Lymphocytes Abs 10/11/2019 2.55 0.90 - 4.00 K/mcL Final Monocytes Abs 10/11/2019 0.65 0.30 - 0.90 K/mcL Final Eosinophils Abs 10/11/2019 0.07 0.00 - 0.50 K/mcL Final Basophils Abs 10/11/2019 0.03 0.00 - 0.30 K/mcL Final IG Absolute 10/11/2019 0.03 0.00 - 0.30 K/mcL Final Nucleated RBC 10/11/2019 0.0 % Final Nucleated RBC Abs 10/11/2019 0.00 0.00 - 0.00 K/mcL Final RPR 10/11/2019 Non-Reactive Non-Reactive Final Rubella IgG Value 10/11/2019 10.4 IU/mL Final Rubella IgG 10/11/2019 Equivocal Final ABORh 10/11/2019 O Positive Final Antibody Screen 10/11/2019 Negative Final Specimen Expires 10/11/2019 10/14/2019 23:59 EST Final documented in this encounter* Akil Rossi MD - 02/17/2020 9:46 AM EDT Subjective: Toni Jacobson is a 29 y.o. Estimated Date of Delivery: 05/30/20 25w2d is being seen today for her return OB visit. Chief Complaint Patient presents with Routine Visit Glucola, Labs OB History Para Term AB Living 2 1 1 0 0 0 SAB TAB Ectopic Multiple Live Births 0 0 0 0 1 # Outcome Date GA Lbr Del/2nd Weight Sex Delivery Anes PTL Lv 2 Current 1 Term 03/06/12 40w0d 3.827 kg (8 lb 7 oz) M Vag-Spont EPI N DEC Comments: Healthy . baby passed at age 7 of Hemophagocytic Lymphohistiocytosis Allergies: no known allergies. Patient has no known allergies. Outpatient Medications as of 02/17/2020 Medication Sig vit-iron fum-folic ac 28 mg iron- 800 mcg Tab Take 1 tablet by mouth daily . Toni Jacobson Home Medication Instructions Prior to Surgery KRISTEN: Printed on:02/17/20 0946 Medication Information Take last dose on Take the morning of surgery Comment(s) vit-iron fum-folic ac 28 mg iron- 800 mcg Tab Take 1 tablet by mouth daily . Past Medical History: Diagnosis Date Rubella non-immune status, antepartum 10/11/2019 History reviewed. No pertinent surgical history. History reviewed. No pertinent family history. Social History Tobacco Use Smoking status: Former Smoker Packs/day: 0.00 Smokeless tobacco: Never Used Substance Use Topics Alcohol use: Not Currently Drug use: Never Social History Substance and Sexual Activity Alcohol Use Not Currently Social History Substance and Sexual Activity Drug Use Never Social History Tobacco Use Smoking Status Former Smoker Packs/day: 0.00 Smokeless Tobacco Never Used OB History Para Term AB Living 2 1 1 0 0 0 SAB TAB Ectopic Multiple Live Births 0 0 0 0 1 # Outcome Date GA Lbr Del/2nd Weight Sex Delivery Anes PTL Lv 2 Current 1 Term 03/06/12 40w0d 3.827 kg (8 lb 7 oz) M Vag-Spont EPI N DEC Comments: Healthy . baby passed at age 7 of Hemophagocytic Lymphohistiocytosis Review of Systems Systems: Constitutional Symptoms No vomiting, fever, chills, unexpected weight changes, headaches, loss of appetite Eyes Denies pain, discharge, inflammation, problems with vision, photophobia, diplopia spots Head, Ears, Noes, Throat, Mouth Denies ear or neck pain, changes in hearing, dysphagia, throat problems Cardiovascular Denies chest pain, palpitations, syncope, cyanosis or unexpected dyspnea, No worsening edema Respiratory Denies tachypnea, wheezing or unexpected breathing problems, cough / sputum Gastrointestinal No upper abdominal pain,no anorexia, dysphagia, blood in stool, dark tarry stools,jaundice, no unexpected changes in bowel habits, no constipation, no food intolerance Female Genitourinary No changes in sexual activity, no bleeding , No vaginal discharge Bladder No new bladder problems, such as hematuria, hesitancy, No dysuria, pain Musculoskeletal Denies any other musculoskeletal problems Skin (Breast) Denies any new changes in her skin, moles, hair patterns, acne, rashes Neurological No paresthesia or numbness, vertigo, local weakness Psychiatric No unexpected anxiety, depression, moods, stress. Negative domestic violence screening Endocrine Denies unexpected excessive sweating, changes in skin or hair texure Hematologic & Lymphatic Denies unexpected bruising, swelling of lymph nodes, prolonged bleeding Immunologic No problems with seasonal allergies / symptoms Objective: Vitals - 02/17/20 0926 OB Urine Dip Urine Glucose Trace Ketones Negative Vitals: 02/17/20 0928 BP: 97/70 Pulse: 87 Weight: 71.7 kg (158 lb) Height: 5' 4 RR=16 Vitals - 02/17/20 0926 Assessment Heart Rate 130-145 Fundal Height (cm) 26 Movement Present Presentation Breech OB Urine Dip Urine Glucose Trace Ketones Negative Vaginal Drainage Draining Fluid No Fluid Odor None Fluid Amount None Edema LLE Edema None RLE Edema None Facial Edema None Body mass index is 27.12 kg/m . TWG=6.868 kg (15 lb 2.3 oz) General Appearance: A &O person, place, time, and situation. Nutrition and Development: Well developed, well nourished Comfort Level: In no acute distress Level of Consciousness: Alert Appearance: Appropriate Head:Face Normal, atraumatic Eyes General inspection, normal. Conjunctiva and lids normal Respiratory: Assessment of effort: no intercostal retractions or use of accessory muscles Abdomen: Gravid uterus, appropriate tenderness Good movements palpated S=D Extremities Edema: dep Mental health Judgment and insight: Appropriate and good insight Orientation: oriented to time, place, and person Recent and remote memory: Both appear to be intact Mood and affect: She is her usual self. Pleasantmood and appropriate affect. No apparent depression or inappropriate anxiety Assessment: OB History Para Term AB Living 2 1 1 0 0 0 SAB TAB Ectopic Multiple Live Births 0 0 0 0 1 # Outcome Date GA Lbr Del/2nd Weight Sex Delivery Anes PTL Lv 2 Current 1 Term 03/06/12 40w0d 3.827 kg (8 lb 7 oz) M Vag-Spont EPI N OCT Comments: Healthy . baby passed at age 7 of Hemophagocytic Lymphohistiocytosis Pt is a 29 y.o. at 25w2d who presents for [facility] Plan: [facility] Diagnoses and all orders for this visit: Encounter for screening - CBC; Future - Gestational Diabetes Screen (50G); Future - Syphilis Antibody; Future - TSH with Reflex Free T4; Future Multigravida in second trimester High risk multigravida, second trimester Low-lying placenta in second trimester Breech presentation, single or unspecified fetus Rubella non-immune status, antepartum Encounter for screening for diabetes mellitus - Gestational Diabetes Screen (50G); Future 25 weeks gestation of Antepartum care. Labs reviewed. Signs and symptoms of labor. Weight management. Domestic violence screening Blood type : O Positive Rhogam: no Return to office in [address] Akil Rossi MD , FACOG 02/17/20 * Rebecca Martinez LPN - 02/17/2020 9:26 AM EDT Vaginal bleeding:no Vaginal discharge:no Leaking of fluid:no Feeling movement: yes Contractions:no Problems:no No visits with results within 8 Week(s) from this visit. Latest known visit with results is: Lab Draw on 12/14/2019 Component Date Value Ref Range Status Screen Interpretation 12/14/2019 Negative Final Trisomy 21 (Down) Syndrome Interp. 12/14/2019 Final The risk of Down syndrome is LESS than the screening cut-off. No follow-up is indicated regarding this result. Down Syndrome Mat Age Risk 12/14/2019 1:10499 Final Age Alone Risk 12/14/2019 1:905 Final Equivalent Age Risk 12/14/2019 < 15.0 years Final OSB Interpretation 12/14/2019 Final The maternal serum AFP result is NOT elevated for a of this gestational age. The risk of an open neural tube defect is less than the screening cut-off. OSB Risk 12/14/2019 1:33357 Final Trisomy 18 (Edward) Syndrome Inter* 12/14/2019 Final The risk of Trisomy 18 is less than the screening cut-off. This screen will detect approximately 60 % of Trisomy 18 pregnancies. Trisomy 18 Screen Risk Estimate 12/14/2019 1:56308 Final GESTATIONAL AGE BASED ON 12/14/2019 DUDLEY Final Gestational Status 12/14/2019 Wilcox Final Maternal Age At DUDLEY 12/14/2019 27.9 Years Final Weight 12/14/2019 147.0 pounds Final Race 12/14/2019 Final Insulin Dependent Diabetic 12/14/2019 No Final Screen Status 12/14/2019 Initial Sample Final MSAFP MoM 12/14/2019 1.17 Final OSB Cut-off 12/14/2019 2.84 Final AFP, Maternal 12/14/2019 40.7 ng/mL Final Estriol MoM 12/14/2019 1.18 Final Estriol 12/14/2019 0.88 ng/mL Final HCG MoM 12/14/2019 1.74 Final HCG, Total 12/14/2019 64.9 IU/mL Final Inhibin A MoM 12/14/2019 0.84 Final Inhibin A 12/14/2019 137.5 pg/mL Final Family History 12/14/2019 None Final Gestational Age 0112/14/2019 16 weeks 0 day, from DUDLEY of 05.30.2020 Final documented in this encounter* Akil Rossi MD - 03/09/2020 4:22 PM EDT Growth measurements were consistent with dates. Normal FHR and LISA. Limited anatomy visualized appeared normal. Anterior placenta is >5.5 cm from internal os. Cervix is clear. Cervical length is 5cm. EFW 1062 grams, +/- 155 grams. Tracy Jung RDMS documented in this encounter* Akil Rosis MD - 03/16/2020 9:42 AM EDT Subjective: Toni Jacobson is a 29 y.o. Estimated Date of Delivery: 05/30/20 29w2d is being seen today for her return OB visit. Chief Complaint Patient presents with Routine Visit TDAP Lab Draw on 02/17/2020 Component Date Value Ref Range Status TSH 02/17/2020 0.43 0.27 - 4.20 mcIU/mL Final WBC 02/17/2020 8.75 4.50 - 11.00 K/mcL Final RBC 02/17/2020 3.63* 4.00 - 5.20 M/mcL Final Hemoglobin 02/17/2020 11.3* 12.0 - 16.0 g/dL Final Hematocrit 02/17/2020 33.9* 36.0 - 46.0 % Final MCV 02/17/2020 93.4 80.0 - 100.0 fL Final MCH 02/17/2020 31.1 26.0 - 34.0 pg Final MCHC 02/17/2020 33.3 31.0 - 37.0 g/dL Final Platelets 02/17/2020 178 150 - 400 K/mcL Final RDW - CV 02/17/2020 13.8 11.6 - 14.8 % Final MPV 02/17/2020 9.6 9.0 - 15.5 fL Final Nucleated RBC 02/17/2020 0.0 % Final Nucleated RBC Abs 02/17/2020 0.00 0.00 - 0.00 K/mcL Final Glucose 1 Hour 02/17/2020 102 65 - 135 mg/dL Final Syphilis Treponemal Ab 02/17/2020 Negative Negative Final OB History Para Term AB Living 2 1 1 0 0 0 SAB TAB Ectopic Multiple Live Births 0 0 0 0 1 # Outcome Date GA Lbr Del/2nd Weight Sex Delivery Anes PTL Lv 2 Current 1 Term 03/06/12 40w0d 3.827 kg (8 lb 7 oz) M Vag-Spont EPI N DEC Comments: Healthy . baby passed at age 7 of Hemophagocytic Lymphohistiocytosis Allergies: no known allergies. Patient has no known allergies. Outpatient Medications as of 03/16/2020 Medication Sig vit-iron fum-folic ac 28 mg iron- 800 mcg Tab Take 1 tablet by mouth daily . Toni Jacobson Home Medication Instructions Prior to Surgery KRISTEN: Printed on:03/16/20 7488 Medication Information Take last dose on Take the morning of surgery Comment(s) vit-iron fum-folic ac 28 mg iron- 800 mcg Tab Take 1 tablet by mouth daily . Past Medical History: Diagnosis Date Rubella non-immune status, antepartum 10/11/2019 History reviewed. No pertinent surgical history. History reviewed. No pertinent family history. Social History Tobacco Use Smoking status: Former Smoker Packs/day: 0.00 Smokeless tobacco: Never Used Substance Use Topics Alcohol use: Not Currently Drug use: Never Social History Substance and Sexual Activity Alcohol Use Not Currently Social History Substance and Sexual Activity Drug Use Never Social History Tobacco Use Smoking Status Former Smoker Packs/day: 0.00 Smokeless Tobacco Never Used OB History Para Term AB Living 2 1 1 SAB TAB Ectopic Multiple Live Births 1 # Outcome Date GA Lbr Del/2nd Weight Sex Delivery Anes PTL Lv 2 Current 1 Term 03/06/12 40w0d 3.827 kg (8 lb 7 oz) M Vag-Spont EPI N DEC Comments: Healthy . baby passed at age 7 of Hemophagocytic Lymphohistiocytosis Review of Systems Systems: Constitutional Symptoms No vomiting, fever, chills, no unexpected weight changes, no headaches, no loss of appetite Eyes Denies pain, discharge, inflammation, problems with vision, photophobia, diplopia spots Head, Ears, Noes, Throat, Mouth Denies ear or neck pain, changes in hearing, dysphagia, throat problems Cardiovascular Denies chest pain, palpitations, syncope, cyanosis or unexpected dyspnea, no worsening edema Respiratory Denies tachypnea, wheezing or unexpected breathing problems, cough / sputum Gastrointestinal No upper abdominal pain,no anorexia, dysphagia, blood in stool, dark tarry stools,jaundice, no unexpected changes in bowel habits, no constipation, no food intolerance Female Genitourinary No changes in sexual activity, no bleeding , No vaginal discharge Bladder No new bladder problems, such as hematuria, hesitancy, no dysuria, pain Musculoskeletal Denies any other musculoskeletal problems Skin (Breast) Denies any new changes in her skin, moles, hair patterns, acne, rashes Neurological No paresthesia or numbness, vertigo, local weakness Psychiatric No unexpected anxiety, depression, moods, stress. Negative domestic violence screening Endocrine Denies unexpected excessive sweating, changes in skin or hair texure Hematologic & Lymphatic Denies unexpected bruising, swelling of lymph nodes, prolonged bleeding Immunologic No problems with seasonal allergies / symptoms Objective: Vitals - 03/16/20918 OB Urine Dip Urine Glucose Trace Ketones Negative Vitals: 03/16/20920 BP: 106/73 Pulse: 85 Weight: 74.4 kg (164 lb) Height: 5' 4 RR= Vitals - 03/16/20918 Assessment Heart Rate 145 Fundal Height (cm) 30 Movement Present Presentation Cephalic OB Urine Dip Urine Glucose Trace Ketones Negative Vaginal Drainage Draining Fluid No Fluid Odor None Fluid Amount None Edema LLE Edema None RLE Edema None Facial Edema None Body mass index is 28.15 kg/m . TWG=9.59 kg (21 lb 2.3 oz) General Appearance: A &O person, place, time, and situation. Nutrition and Development: Well developed, well nourished Comfort Level: In no acute distress Level of Consciousness: Alert Appearance: Appropriate Head:Face Normal, atraumatic Eyes General inspection, normal. Conjunctiva and lids normal Respiratory: Assessment of effort: no intercostal retractions or use of accessory muscles Abdomen: Gravid uterus, appropriate tenderness Good movements palpated S=D Extremities Edema: n Mental health Judgment and insight: Appropriate and good insight Orientation: oriented to time, place, and person Recent and remote memory: Both appear to be intact Mood and affect: She is her usual self. Pleasantmood and appropriate affect. No apparent depression or inappropriate anxiety Assessment: OB History Para Term AB Living 2 1 1 0 0 0 SAB TAB Ectopic Multiple Live Births 0 0 0 0 1 # Outcome Date GA Lbr Del/2nd Weight Sex Delivery Anes PTL Lv 2 Current 1 Term 03/06/12 40w0d 3.827 kg (8 lb 7 oz) M Vag-Spont EPI N DEC Comments: Healthy . baby passed at age 7 of Hemophagocytic Lymphohistiocytosis Pt is a 29 y.o. at 29w2d [facility] Diagnoses and all orders for this visit: Multigravida in third trimester Need for tetanus booster - Tdap vaccine greater than or equal to 7yo IM High risk multigravida, third trimester Rubella non-immune status, antepartum 29 weeks gestation of care GBS testing 35-37 wk . I reviewed some common signs of Labor. If she is having more than 6 contractions / hour, she will reduce activity (lay down), cool down, hydrate and take a Tylenol (if possible). Should this be unsuccessful or if she prefer, she may come to Labor & Delivery to be assessed...with emphasis on having her cervix examined. She does not to page or get permission to come into the hospital. Ea rly intervention with PTL may reduce complications. Increased 'rhythmic' lower back / abdominal pain, thigh pain, gynecologic changes ( discharge, bleeding / spotting, leakage of fluid, unique pain or pressure) should alert her to consider labor...and seek help much sooner. [place], rather than [place] [facility], has an OB unit staffed for such an evaluation. Kick counts reviewed. Patient voiced understanding that if she is unable to feel 10 movements in 1 hour, will recount for second hour. If at least 10 movements are not felt during the second hour, she is to call the office if during normal office hours, or go [place] [facility]. Return to office [address] Akil Rossi MD , FACOG 03/16/20 * Rebecca Martinez LPN - 03/16/2020 9:19 AM EDT Vaginal bleeding:no Vaginal discharge:no Leaking of fluid:no Feeling movement: yes Contractions:no Problems:no Lab Draw on 02/17/2020 Component Date Value Ref Range Status TSH 02/17/2020 0.43 0.27 - 4.20 mcIU/mL Final WBC 02/17/2020 8.75 4.50 - 11.00 K/mcL Final RBC 02/17/2020 3.63* 4.00 - 5.20 M/mcL Final Hemoglobin 02/17/2020 11.3* 12.0 - 16.0 g/dL Final Hematocrit 02/17/2020 33.9* 36.0 - 46.0 % Final MCV 02/17/2020 93.4 80.0 - 100.0 fL Final MCH 02/17/2020 31.1 26.0 - 34.0 pg Final MCHC 02/17/2020 33.3 31.0 - 37.0 g/dL Final Platelets 02/17/2020 178 150 - 400 K/mcL Final RDW - CV 02/17/2020 13.8 11.6 - 14.8 % Final MPV 02/17/2020 9.6 9.0 - 15.5 fL Final Nucleated RBC 02/17/2020 0.0 % Final Nucleated RBC Abs 02/17/2020 0.00 0.00 - 0.00 K/mcL Final Glucose 1 Hour 02/17/2020 102 65 - 135 mg/dL Final Syphilis Treponemal Ab 02/17/2020 Negative Negative Final documented in this encounter* Akil Rossi MD - 05/10/2020 2:42 PM EDT Vaginal Delivery Progress Note Assessment/Plan: Status post Vaginal Delivery: OB History Para Term AB Living 2 2 2 0 0 1 SAB TAB Ectopic Multiple Live Births 0 0 0 0 2 # Outcome Date GA Lbr Del/2nd Weight Sex Delivery Anes PTL Lv 2 Term 05/09/20 37w0d 09:23 / 00:54 2810 g (6 lb 3.1 oz) M Vag-Spont EPI N LAUREN Name: SHIMON,BABY BOY TACCARRIE Apgar1: 9 Apgar5: 9 1 Term 03/06/12 40w0d 3827 g (8 lb 7 oz) M Vag-Spont EPI N DEC Comments: Healthy . baby passed at age 9 of Hemophagocytic Lymphohistiocytosis Principal Problem: Full-term premature rupture of membranes with onset of labor within 24 hours of rupture Active Problems: Rubella non-immune status, antepartum Multigravida in third trimester High risk multigravida, third trimester Indication for care in labor and delivery, antepartum 37 weeks gestation of Normal vaginal delivery Single live G2 Problems (from 09/22/19 to 05/10/20) Problem Noted Resolved Full-term premature rupture of membranes with onset of labor within 24 hours of rupture 05/09/2020 byAkil Rossi MD No Normal vaginal delivery 05/09/2020 by Akil Rossi MD No Single live 05/09/2020 by Akil Rossi MD No Multigravida in third trimester 03/15/2020 by Akil Rossi MD No High risk multigravida, third trimester 03/15/2020 by Akil Rossi MD No Choroid plexus cyst 01/03/2020 by Akil Rossi MD No Subjective: Day 1: Vaginal Delivery The patient feels well. The patient denies emotional concerns. Pain is well controlled with currentmedications. Urinary output is adequate. Her lochia is decreasing steadily The patient is ambulating well. The patient is tolerating a normal diet. The baby is well Baby is feeding via Information for the patient's : Chad Jacobson Boy Toni [[id number]] Feeding Type: Formula Allergies: no known allergies. Patient has no known allergies. Outpatient Medications as of 05/10/2020 Medication Sig vit-iron fum-folic ac 28 mg iron- 800 mcg Tab Take 1 tablet by mouth daily . Toni Jacobson Home Medication Instructions Prior to Surgery KRISTEN:[id number] Printed on:05/10/20 3214 Medication Information Take last dose on Take the morning of surgery Comment(s) vit-iron fum-folic ac 28 mg iron- 800 mcg Tab Take 1 tablet by mouth daily . Past Medical History: Diagnosis Date Rubella non-immune status, antepartum 10/11/2019 History reviewed. No pertinent surgical history. History reviewed. No pertinent family history. Social History Tobacco Use Smoking status: Former Smoker Packs/day: 0.00 Smokeless tobacco: Never Used Substance Use Topics Alcohol use: Not Currently Drug use: Never Social History Substance and Sexual Activity Alcohol Use Not Currently Social History Substance and Sexual Activity Drug Use Never Social History Tobacco Use Smoking Status Former Smoker Packs/day: 0.00 Smokeless Tobacco Never Used Objective: Vital signs in last 24 hours: Temp: [98 F (36.7 C)-98.4 F (36.9 C)] 98 F (36.7 C) Heart Rate: [64-85] 66 Resp: [14-18] 16 BP: (97-134)/(63-102) 120/82 I/O last shift No intake/output data recorded. Updated by staff, she is improving with her recovery. General: alert, cooperative, appropriate for just going thru labor Respiratory: breathing comfortably Abdomen: appropriate tenderness, nondistended Uterine Fundus: firm, appropriately tender, lochia as noted Perineum: intact, healing well, no significant drainage, no significant erythema Exam, as expected DVT Evaluation: No evidence of DVT seen on physical exam. Equal edema bilaterally, nontender legs bilaterally. Admission on 05/09/2020 Component Date Value Ref Range Status ABORh 05/09/2020 O Positive Final Antibody Screen 05/09/2020 Negative Final Specimen Expires 05/09/2020 05/12/2020 23:59 EST Final WBC 05/09/2020 8.98 4.50 - 11.00 K/mcL Final RBC 05/09/2020 3.61* 4.00 - 5.20 M/mcL Final Hemoglobin 05/09/2020 10.6* 12.0 - 16.0 g/dL Final Hematocrit 05/09/2020 32.6* 36.0 - 46.0 % Final MCV 05/09/2020 90.3 80.0 - 100.0 fL Final MCH 05/09/2020 29.4 26.0 - 34.0 pg Final MCHC 05/09/2020 32.5 31.0 - 37.0 g/dL Final Platelets 05/09/2020 198 150 - 400 K/mcL Final RDW - CV 05/09/2020 13.2 11.6 - 14.8 % Final MPV 05/09/2020 10.1 9.4 - 12.4 fL Final Nucleated RBC 05/09/2020 0.0 % Final Nucleated RBC Abs 05/09/2020 0.00 0.00 - 0.00 K/mcL Final Syphilis Treponemal Ab 05/09/2020 Negative Negative Final SARS-CoV-2 05/09/2020 Not Detected Not Detected Final This test was performed under the FDA's Emergency Use Authorization (EUA). Testing was performed using the [employer] ID NOW COVID-19 assay on the ID NOW platform. This test has not been approved for use in asymptomatic patients and its performance in this patient population has not been evaluated. Negative results do not rule out the presence of SARS-CoV-2/COVID-19. Fact sheets for the EUA can be found at the following links: For Healthcare Providers: https://www.fda.gov/media/430854/download For Patients: https://www.fda.gov/media/144809/download WBC 05/10/2020 12.24* 4.50 - 11.00 K/mcL Final RBC 05/10/2020 3.26* 4.00 - 5.20 M/mcL Final Hemoglobin 05/10/2020 9.5* 12.0 - 16.0 g/dL Final Hematocrit 05/10/2020 28.9* 36.0 - 46.0 % Final MCV 05/10/2020 88.7 80.0 - 100.0 fL Final MCH 05/10/2020 29.1 26.0 - 34.0 pg Final MCHC 05/10/2020 32.9 31.0 - 37.0 g/dL Final Platelets 05/10/2020 177 150 - 400 K/mcL Final RDW - CV 05/10/2020 13.3 11.6 - 14.8 % Final MPV 05/10/2020 10.5 9.4 - 12.4 fL Final Neutrophils 05/10/2020 63.2 % Final Lymphocytes 05/10/2020 23.4 % Final Monocytes 05/10/2020 12.0 % Final Eosinophils 05/10/2020 0.8 % Final Basophils 05/10/2020 0.3 % Final IG Percent 05/10/2020 0.30 % Final The IG parameter is the percentage of metamyelocytes, myelocytes and promyelocytes. An immature granulocyte count (IG) of 1% or more suggests the possibility of infection, an IG count of 3% is very likely related to an infection. Neutrophils Abs 05/10/2020 7.72* 1.70 - 7.00 K/mcL Final Lymphocytes Abs 05/10/2020 2.87 0.90 - 4.00 K/mcL Final Monocytes Abs 05/10/2020 1.47* 0.30 - 0.90 K/mcL Final Eosinophils Abs 05/10/2020 0.10 0.00 - 0.50 K/mcL Final Basophils Abs 05/10/2020 0.04 0.00 - 0.30 K/mcL Final IG Absolute 05/10/2020 0.04 0.00 - 0.30 K/mcL Final Nucleated RBC 05/10/2020 0.0 % Final Nucleated RBC Abs 05/10/2020 0.00 0.00 - 0.00 K/mcL Final Invalid input(s): LABALBU Results from last 7 days Lab Units 05/10/20 0612 05/09/20 0830 WBC K/mcL 12.24* 8.98 HGB g/dL 9.5* 10.6* HCT % 28.9* 32.6* PLT K/mcL 177 198 care : Patient Active Problem List Diagnosis Rubella non-immune status, antepartum Choroid plexus cyst Multigravida in third trimester High risk multigravida, third trimester Indication for care in labor and delivery, antepartum 37 weeks gestation of Full-term premature rupture of membranes with onset of labor within 24 hours of rupture Normal vaginal delivery Single live Principal Problem: Full-term premature rupture of membranes with onset of labor within 24 hours of rupture Active Problems: Rubella non-immune status, antepartum Multigravida in third trimester High risk multigravida, third trimester Indication for care in labor and delivery, antepartum 37 weeks gestation of Normal vaginal delivery Single live Continue routine care. Continue current pain control. Encouraged ambulation. Daily PNV and stool softeners. Contraception Discharge home with standard precautions and return to office in 4-6 weeks Akil Rossi MD 05/10/20 documented in this encounter* Akil Rossi MD - 12/27/2020 11:48 AM EST IUP identified on today's exam consistent with 17w6d and an DUDLEY of 05-29-2021. Normal FHR and DVP. Anatomy visualized appeared normal. Tracy Jung RDMS The obstetrical ultrasound report and images are reviewed. Comments made are in agreement and follow up as planned. No apparent anomalies / abnormalities on today's study. Final Estimated Date of Delivery: 05/29/21 Akil Rossi MD documented in this encounter* Akil Rossi MD - 01/04/2021 3:49 PM EST Chief Complaint: Chief Complaint Patient presents with Initial Visit NOBS OB History Para Term AB Living 3 2 2 1 SAB TAB Ectopic Multiple Live Births 0 2 # Outcome Date GA Lbr Del/2nd Weight Sex Delivery Anes PTL Lv 3 Current 2 Term 05/09/20 37w0d 09:23 / 00:54 2.81 kg (6 lb 3.1 oz) M Vag-Spont EPI N LAUREN 1 Term 03/06/12 40w0d 3.827 kg (8 lb 7 oz) M Vag-Spont EPI N DEC Comments: Healthy . baby passed at age 9 of Hemophagocytic Lymphohistiocytosis Obstetric Comments 2 nd preg , no PNC from 29 to 37 wks HPI: Toni Jacobson 30 y.o. Estimated Date of Delivery: 05/29/21 19w2d presents today for New obstetrical exam. LPNC She is aware of her final due date, and definition of and term. Her labs are reviewed with her also. Activity and dietary changes ( like reducing carbs and fast foods) for a healthier , baby and easier delivery. She is aware to avoid alcohol & tobacco products, limit caffeine, avoid gaining > 30 pounds and avoid heavy lifting / standing/working > 8 hrs / day. Some common approaches to nausea such as 6 small meals a day, hydration (electrolytes), dez products , Vitamin B6 and Unisom may also help. Allergies: Patient has no known allergies. Patient has no known allergies. Outpatient Medications as of 01/04/2021 Medication Sig metoclopramide (REGLAN) 10 MG tablet Take 1 (one) tablet (10 mg total) by mouth 4 (four) times a day as needed (Nausea with vomiting) . Vitamin Plus Low Iron 27 mg iron- 1 mg Tab Toni Jacobson Home Medication Instructions Prior to Surgery KRISTEN: Printed on:01/07/21 8532 Medication Information Take last dose on Take the morning of surgery Comment(s) ferrous sulfate 325 (65 FE) MG tablet Take 1 (one) tablet (325 mg total) by mouth daily with breakfast . metoclopramide (REGLAN) 10 MG tablet Take 1 (one) tablet (10 mg total) by mouth 4 (four) times a day as needed (Nausea with vomiting) . Vitamin Plus Low Iron 27 mg iron- 1 mg Tab Past Medical History: Diagnosis Date Rubella non-immune status, antepartum 10/11/2019 OB History Para Term AB Living 3 2 2 1 SAB TAB Ectopic Multiple Live Births 0 2 # Outcome Date GA Lbr Del/2nd Weight Sex Delivery Anes PTL Lv 3 Current 2 Term 05/09/20 37w0d 09:23 / 00:54 2.81 kg (6 lb 3.1 oz) M Vag-Spont EPI N LAUREN 1 Term 03/06/12 40w0d 3.827 kg (8 lb 7 oz) M Vag-Spont EPI N OCT Comments: Healthy . baby passed at age 7 of Hemophagocytic Lymphohistiocytosis Obstetric Comments 2 preg , no PNC from 29 to 37 wks History reviewed. No pertinent surgical history. History reviewed. No pertinent family history. Social History Tobacco Use Smoking status: Former Smoker Packs/day: 0.00 Smokeless tobacco: Never Used Substance Use Topics Alcohol use: Not Currently Drug use: Never Social History Substance and Sexual Activity Alcohol Use Not Currently Social History Substance and Sexual Activity Drug Use Never Social History Tobacco Use Smoking Status Former Smoker Packs/day: 0.00 Smokeless Tobacco Never Used OB History Para Term AB Living 3 2 2 0 0 1 SAB TAB Ectopic Multiple Live Births 0 0 0 0 2 # Outcome Date GA Lbr Del/2nd Weight Sex Delivery Anes PTL Lv 3 Current 2 Term 05/09/20 37w0d 09:23 / 00:54 2.81 kg (6 lb 3.1 oz) M Vag-Spont EPI N LAUREN Name: CHAD JACOBSON Apgar1: 9 Apgar5: 9 1 Term 03/06/12 40w0d 3.827 kg (8 lb 7 oz) M Vag-Spont EPI N OCT Comments: Healthy . baby passed at age 7 of Hemophagocytic Lymphohistiocytosis Obstetric Comments 2 nd preg , no PNC from 29 to 37 wks O Positive Review of Systems Systems: Constitutional Symptoms No more nausea, no vomiting, no fever, chills, no unexpected weight changes, noted fatigue, no headaches, some loss of appetite, +/- sleep disturbances Eyes No pain, discharge, inflammation, spots, diplopia,photophobia, new problems with vision or other any other symptoms Head, Ears, Noes, Throat, Mouth No recent head trauma, ear or neck pain, photophobia, changes in hearing / vision, dysphagia, throat or nose problems. No new teeth/gum problems Cardiovascular No chest pain, palpitations, syncope, cyanosis or unexpected dyspnea and no edema Respiratory No tachypnea, wheezing or unexpected breathing problems, cough / sputum Gastrointestinal No upper abdominal pain, dysphagia, blood in stool, dark tarry stools, jaundice, no unexpected changes in bowel habits, incontinence, no constipation , no food intolerance Female Genitourinary No changes in sexual activity, no bleeding, no pelvic pain, & no vaginal discharge Bladder No new bladder problems, no hematuria, no hesitancy, frequency, & dysuria Musculoskeletal No any new musculoskeletal problems Skin (Breast) No new changes in her skin, moles, hair patterns, acne, breast discomfort or discharge Neurological No paresthesia or numbness, tremors, vertigo, local weakness Psychiatric No unexpected anxiety, depression, moods, stress. Negative domestic violence screening Endocrine No temperature intolerance, changes in hair or skin texture, unexpected weight changes, excessive sweating Hematologic & Lymphatic No unexpected bruising, swelling of lymph nodes, prolonged bleeding Immunologic No problems with seasonal allergies or symptoms Physical exam Vitals - 01/04/21 1539 Assessment Heart Rate 140-150 Fundal Height (cm) 20 Movement Present Presentation Cephalic OB Urine Dip Urine Albumin Negative Urine Glucose Negative Ketones Negative Dilation/Effacement/Station Dilation 0 Effacement (%) 0 Vaginal Drainage Draining Fluid No Fluid Odor None Fluid Amount None Edema LLE Edema None RLE Edema None Facial Edema None Vitals: 01/04/21 1539 BP: 101/69 Weight: 73.5 kg (162 lb) Height: 5' 4 RR=16 0.907 kg (2 lb) Body mass index is 27.81 kg/m . General Appearance: Well developed, well nourished No acute distress. A &O person, place, time, and situation. Comfort Level: She looks comfortable Level of Consciousness: Alert Appearance: Appropriate Head:Face Normal, atraumatic Eyes: General inspection, normal. Conjunctiva and lids normal Neck (Inspection/ palpation) Symmetric, trachea Midline, no mass or JVD. Normal palpation THYROID: Normal contour, no tenderness, no enlargement, no mass Respiratory: Assessment of effort: no intercostal retractions or use of accessory muscles Clear breath sounds bilaterally, no wheezes or rhonchi. Breath sounds normal Cardiovascular: Auscultation: normal rate, regular rhythm. normal S1, S2, no murmur: no rub / gallop Peripheral: : no cyanosis. No tenderness Varicosities: no Edema: no Breast: LEFT: Symmetric, normal contour No expressible discharge, normal tissue, appropriately tender, no suspicious nodules, no mass RIGHT: Symmetric, normal contour No expressible discharge, normal tissue, appropriately tender, no suspicious nodules, no mass Abdomen: Soft, no tenderness, non distended, no masses, organ enlargement, no hernia Hernia: No hernias Genitourinary: External genitalia: Normal for age, no lesions, discharge, rash Labia normal Mons & Clitoris Normal, no rash lesions Urethral meatus: Normal size and location, no lesions or discharge, nontender [place]'s ducts normal Urethra: No mass, discharge, no tenderness Bladder: No fullness, discharge, no tenderness Introitus: Normal, no tenderness Bartholin's gland normal Vagina: Healthy, No injury, foreign body, lesions, no discharge, Cervix normal appearance, no tenderness, no lesions, No discharge Uterus: 20wk size and acceptable position, midline, mobile, no tenderness Adnexa: LEFT: No tenderness, normal size, mobile, appropriate RIGHT: No tenderness, normal size, mobile, appropriate Cul de sac: Normal, no tenderness, no nodularity Anus and perineum: Normal tone noted, no lesions Rectal exam: Deferred Skin Inspection and palpation reveals no mass, bruising, ecchymosis or petechiae, No rash or suspicious lesions Mental health Judgment and insight: Appropriate and good insight Orientation: oriented to time, place, and person Recent and remote memory: Both appear to be intact Mood and affect: She is her usual self. Pleasantmood and appropriate affect. No apparent depression, no inappropriate anxiety Lymph nodes Cervical: no adenopathy Axillary: no adenopathy Inguinal: no adenopathy Initial on 01/04/2021 Component Date Value Ref Range Status Chlamydia trachomatis Amplified RNA 01/04/2021 NEGATIVE Negative Final Neisseria gonorrhoeae Amplfied RNA 01/04/2021 NEGATIVE Negative Final Trichomonas vaginalis Amplified RNA 01/04/2021 NEGATIVE Negative Final Lab Draw on 12/25/2020 Component Date Value Ref Range Status Screen Interpretation 12/25/2020 Negative Final Trisomy 21 (Down) Syndrome Interp. 12/25/2020 Final The risk of Down syndrome is LESS than the screening cut-off. No follow-up is indicated regarding this result. Down Syndrome Mat Age Risk 12/25/2020 1:43336 Final Age Alone Risk 12/25/2020 1:833 Final Equivalent Age Risk 12/25/2020 < 15.0 years Final OSB Interpretation 12/25/2020 Final The maternal serum AFP result is NOT elevated for a of this gestational age. The risk of an open neural tube defect is less than the screening cut-off. OSB Risk 12/25/2020 1:37219 Final Trisomy 18 (Edward) Syndrome Inter* 12/25/2020 Final The risk of Trisomy 18 is less than the screening cut-off. This screen will detect approximately 60 % of Trisomy 18 pregnancies. Trisomy 18 Screen Risk Estimate 12/25/2020 1:62903 Final GESTATIONAL AGE BASED ON 12/25/2020 [place] Final Gestational Status 12/25/2020 [place] Final Maternal Age At DUDLEY 12/25/2020 28.9 Years Final Weight 12/25/2020 160.0 pounds Final Race 12/25/2020 Final Insulin Dependent Diabetic 12/25/2020 No Final Screen Status 12/25/2020 Initial Sample Final MSAFP MoM 12/25/2020 1.18 Final OSB Cut-off 12/25/2020 2.84 Final AFP, Maternal 12/25/2020 50.2 ng/mL Final Estriol MoM 12/25/2020 1.24 Final Estriol 12/25/2020 1.40 ng/mL Final HCG MoM 12/25/2020 1.58 Final HCG, Total 12/25/2020 38.8 IU/mL Final Inhibin A MoM 12/25/2020 0.74 Final Inhibin A 12/25/2020 118.1 pg/mL Final Family History 12/25/2020 None Final Gestational Age 0112/25/2020 17 weeks 6 days, from [place] of 05.29.2021 Final Lab Draw on 12/21/2020 Component Date Value Ref Range Status Culture 12/21/2020 > 10,000 CFU/mL mixture of normal urogenital microbiota Final HIV 1-2 Screen 12/21/2020 Negative Negative Final Hepatitis B Surface Ag 12/21/2020 Negative Negative Final WBC 12/21/2020 8.68 4.50 - 11.00 K/mcL Final RBC 12/21/2020 4.01 4.00 - 5.20 M/mcL Final Hemoglobin 12/21/2020 12.1 12.0 - 16.0 g/dL Final Hematocrit 12/21/2020 35.0* 36.0 - 46.0 % Final MCV 12/21/2020 87.3 80.0 - 100.0 fL Final MCH 12/21/2020 30.2 26.0 - 34.0 pg Final MCHC 12/21/2020 34.6 31.0 - 37.0 g/dL Final Platelets 12/21/2020 215 150 - 400 K/mcL Final RDW - CV 12/21/2020 13.4 11.6 - 14.8 % Final MPV 12/21/2020 11.1 9.4 - 12.4 fL Final Neutrophils 12/21/2020 61.1 % Final Lymphocytes 12/21/2020 27.5 % Final Monocytes 12/21/2020 9.7 % Final Eosinophils 12/21/2020 1.0 % Final Basophils 12/21/2020 0.5 % Final IG Percent 12/21/2020 0.20 % Final The IG parameter is the percentage of metamyelocytes, myelocytes and promyelocytes. An immature granulocyte count (IG) of 1% or more suggests the possibility of infection, an IG count of 3% is very likely related to an infection. Neutrophils Abs 12/21/2020 5.30 1.70 - 7.00 K/mcL Final Lymphocytes Abs 12/21/2020 2.39 0.90 - 4.00 K/mcL Final Monocytes Abs 12/21/2020 0.84 0.30 - 0.90 K/mcL Final Eosinophils Abs 12/21/2020 0.09 0.00 - 0.50 K/mcL Final Basophils Abs 12/21/2020 0.04 0.00 - 0.30 K/mcL Final IG Absolute 12/21/2020 0.02 0.00 - 0.30 K/mcL Final Nucleated RBC 12/21/2020 0.0 % Final Nucleated RBC Abs 12/21/2020 0.00 0.00 - 0.00 K/mcL Final RPR 12/21/2020 Non-Reactive Non-Reactive Final Rubella IgG Value 12/21/2020 12.0 IU/mL Final Rubella IgG 12/21/2020 Equivocal Final ABORh 12/21/2020 O Positive Final Antibody Screen 12/21/2020 Negative Final Specimen Expires 12/21/2020 12/24/2020 23:59 EST Final Lab Draw on 12/20/2020 Component Date Value Ref Range Status hCG Quant 12/20/2020 30,541* 0 - 5 mIU/mL Final Follow up soon for an ultrasound and follow up office visit if discomfort and pain worsens. ? Potential causes considered, such as abnormal , ectopic , threatened miscarriage, endocrinopathy, systemic diseases (eg kidney/liver), infectious etiology, urologic, gastrointestinal , musculoskeletal causes and gynecologic anatomic abnormalities. ? Workup reviewed: labs, radiologic imaging. ? Treatment options reviewed for discomfort: none, OTC remedies, massage, physical and chiropractictherapy. ? Handouts provided to her. ? Treatment decision to follow once workup complete. Number of diagnosis / management options: Limited Options reviewed include observation, medical and surgical / procedural possibilities. Amount and /or complexity of data reviewed: Moderate Risk of complications and/or morbidity or mortality: Low OB History Para Term AB Living 3 2 2 0 0 1 SAB TAB Ectopic Multiple Live Births 0 0 0 0 2 # Outcome Date GA Lbr Del/2nd Weight Sex Delivery Anes PTL Lv 3 Current 2 Term 05/09/20 37w0d 09:23 / 00:54 2.81 kg (6 lb 3.1 oz) M Vag-Spont EPI N LAUREN Name: SHIMON,BABY BOY TACCARRIE Apgar1: 9 Apgar5: 9 1 Term 03/06/12 40w0d 3.827 kg (8 lb 7 oz) M Vag-Spont EPI N OCT Comments: Healthy . baby passed at age 7 of Hemophagocytic Lymphohistiocytosis Obstetric Comments 2 nd preg , no PNC from 29 to 37 wks Assessment/Plan: Pt is a 30 y.o. at 19w2d who presents for NOB visit Antepartum care CAREPLAN Diagnoses and all orders for this visit: Multigravida in second trimester LPNC Late care 18 wk, -2020 19 weeks gestation of Screening for venereal disease - Chlamydia/GC/Trichomonas Amplified RNA Screening for malignant neoplasm of cervix - Thinprep Pap Smear MD Dr. Akil Reveles MD, FACOG [employer] Rob[employer] L[employer] Operator [facility] [place] [address] [facility] [address] [place] [address] Office [phone] We spent at least 30 minutes total time with the appointment today, with discussing and reviewing her chart records, and > 50 % of that time was counselling and coordination. Her symptoms, diagnosis, , prognosis, follow-up and medical plan are outlined in detail. She states that she understands and is welcome to call if she has any other questions regarding her medical health concerns. Akil Rossi MD * Hellen Martinez MA - 01/04/2021 3:42 PM EST 19w2d Chief Complaint Patient presents with Initial Visit NOBS OB History Para Term AB Living 3 2 2 0 0 1 SAB TAB Ectopic Multiple Live Births 0 0 0 0 2 # Outcome Date GA Lbr Del/2nd Weight Sex Delivery Anes PTL Lv 3 Current 2 Term 05/09/20 37w0d 09:23 / 00:54 2.81 kg (6 lb 3.1 oz) M Vag-Spont EPI N LAUREN Name: SHIMON,BABY BOY TACCARRIE Apgar1: 9 Apgar5: 9 1 Term 03/06/12 40w0d 3.827 kg (8 lb 7 oz) M Vag-Spont EPI N DEC Comments: Healthy . baby passed at age 7 of Hemophagocytic Lymphohistiocytosis Lab Draw on 12/25/2020 Component Date Value Ref Range Status Screen Interpretation 12/25/2020 Negative Final Trisomy 21 (Down) Syndrome Interp. 12/25/2020 Final The risk of Down syndrome is LESS than the screening cut-off. No follow-up is indicated regarding this result. Down Syndrome Mat Age Risk 12/25/2020 1:69631 Final Age Alone Risk 12/25/2020 1:833 Final Equivalent Age Risk 12/25/2020 < 15.0 years Final OSB Interpretation 12/25/2020 Final The maternal serum AFP result is NOT elevated for a of this gestational age. The risk of an open neural tube defect is less than the screening cut-off. OSB Risk 12/25/2020 1:65054 Final Trisomy 18 (Edward) Syndrome Inter* 12/25/2020 Final The risk of Trisomy 18 is less than the screening cut-off. This screen will detect approximately 60 % of Trisomy 18 pregnancies. Trisomy 18 Screen Risk Estimate 12/25/2020 1:90705 Final GESTATIONAL AGE BASED ON 12/25/2020 [place] Final Gestational Status 12/25/2020 [place] Final Maternal Age At DUDLEY 12/25/2020 28.9 Years Final Weight 12/25/2020 160.0 pounds Final Race 12/25/2020 Final Insulin Dependent Diabetic 12/25/2020 No Final Screen Status 12/25/2020 Initial Sample Final MSAFP MoM 12/25/2020 1.18 Final OSB Cut-off 12/25/2020 2.84 Final AFP, Maternal 12/25/2020 50.2 ng/mL Final Estriol MoM 12/25/2020 1.24 Final Estriol 12/25/2020 1.40 ng/mL Final HCG MoM 12/25/2020 1.58 Final HCG, Total 12/25/2020 38.8 IU/mL Final Inhibin A MoM 12/25/2020 0.74 Final Inhibin A 12/25/2020 118.1 pg/mL Final Family History 12/25/2020 None Final Gestational Age 0112/25/2020 17 weeks 6 days, from [place] of 06..2020 Final Lab Draw on 12/21/2020 Component Date Value Ref Range Status Culture 12/21/2020 > 10,000 CFU/mL mixture of normal urogenital microbiota Final HIV 1-2 Screen 12/21/2020 Negative Negative Final Hepatitis B Surface Ag 12/21/2020 Negative Negative Final WBC 12/21/2020 8.68 4.50 - 11.00 K/mcL Final RBC 12/21/2020 4.01 4.00 - 5.20 M/mcL Final Hemoglobin 12/21/2020 12.1 12.0 - 16.0 g/dL Final Hematocrit 12/21/2020 35.0* 36.0 - 46.0 % Final MCV 12/21/2020 87.3 80.0 - 100.0 fL Final MCH 12/21/2020 30.2 26.0 - 34.0 pg Final MCHC 12/21/2020 34.6 31.0 - 37.0 g/dL Final Platelets 12/21/2020 215 150 - 400 K/mcL Final RDW - CV 12/21/2020 13.4 11.6 - 14.8 % Final MPV 12/21/2020 11.1 9.4 - 12.4 fL Final Neutrophils 12/21/2020 61.1 % Final Lymphocytes 12/21/2020 27.5 % Final Monocytes 12/21/2020 9.7 % Final Eosinophils 12/21/2020 1.0 % Final Basophils 12/21/2020 0.5 % Final IG Percent 12/21/2020 0.20 % Final The IG parameter is the percentage of metamyelocytes, myelocytes and promyelocytes. An immature granulocyte count (IG) of 1% or more suggests the possibility of infection, an IG count of 3% is very likely related to an infection. Neutrophils Abs 12/21/2020 5.30 1.70 - 7.00 K/mcL Final Lymphocytes Abs 12/21/2020 2.39 0.90 - 4.00 K/mcL Final Monocytes Abs 12/21/2020 0.84 0.30 - 0.90 K/mcL Final Eosinophils Abs 12/21/2020 0.09 0.00 - 0.50 K/mcL Final Basophils Abs 12/21/2020 0.04 0.00 - 0.30 K/mcL Final IG Absolute 12/21/2020 0.02 0.00 - 0.30 K/mcL Final Nucleated RBC 12/21/2020 0.0 % Final Nucleated RBC Abs 12/21/2020 0.00 0.00 - 0.00 K/mcL Final RPR 12/21/2020 Non-Reactive Non-Reactive Final Rubella IgG Value 12/21/2020 12.0 IU/mL Final Rubella IgG 12/21/2020 Equivocal Final ABORh 12/21/2020 O Positive Final Antibody Screen 12/21/2020 Negative Final Specimen Expires 12/21/2020 12/24/2020 23:59 EST Final Lab Draw on 12/20/2020 Component Date Value Ref Range Status hCG Quant 12/20/2020 30,541* 0 - 5 mIU/mL Final Any vaginal bleeding? no Any vaginal discharge? no Any leaking of fluid? no Feeling movement? yes Having any contractions?no Any other problems? denies documented in this encounter* Akil Rossi MD - 01/30/2021 3:20 PM EST Subjective: Toni Jacobson is a 30 y.o. Estimated Date of Delivery: 05/29/21 23w0d is being seen today for her return OB visit. Chief Complaint Patient presents with Routine Visit ROBS OB History Para Term AB Living 3 2 2 0 0 1 SAB TAB Ectopic Multiple Live Births 0 0 0 0 2 # Outcome Date GA Lbr Del/2nd Weight Sex Delivery Anes PTL Lv 3 Current 2 Term 05/09/20 37w0d 09:23 / 00:54 2.81 kg (6 lb 3.1 oz) M Vag-Spont EPI N LAUREN Name: CHAD JACOBSON Apgar1: 9 Apgar5: 9 1 Term 03/06/12 40w0d 3.827 kg (8 lb 7 oz) M Vag-Spont EPI N DEC Comments: Healthy . baby passed at age 7 of Hemophagocytic Lymphohistiocytosis Obstetric Comments 2 nd preg , no PNC from 29 to 37 wks Allergies: Patient has no known allergies. Patient has no known allergies. Outpatient Medications as of 01/30/2021 Medication Sig metoclopramide (REGLAN) 10 MG tablet Take 1 (one) tablet (10 mg total) by mouth 4 (four) times a day as needed (Nausea with vomiting) . Toni Jacobson Home Medication Instructions Prior to Surgery KRISTEN: Printed on:02/02/21 1143 Medication Information Take last dose on Take the morning of surgery Comment(s) metoclopramide (REGLAN) 10 MG tablet Take 1 (one) tablet (10 mg total) by mouth 4 (four) times a day as needed (Nausea with vomiting) . vitamin with Ca-Iron-FA ( Vitamin Plus Low Iron) 27-1 mg Tab Take 1 (one) tablet by mouth daily . Past Medical History: Diagnosis Date Rubella non-immune status, antepartum 10/11/2019 History reviewed. No pertinent surgical history. History reviewed. No pertinent family history. Social History Tobacco Use Smoking status: Former Smoker Packs/day: 0.00 Smokeless tobacco: Never Used Substance Use Topics Alcohol use: Not Currently Drug use: Never Social History Substance and Sexual Activity Alcohol Use Not Currently Social History Substance and Sexual Activity Drug Use Never Social History Tobacco Use Smoking Status Former Smoker Packs/day: 0.00 Smokeless Tobacco Never Used OB History Para Term AB Living 3 2 2 0 0 1 SAB TAB Ectopic Multiple Live Births 0 0 0 0 2 # Outcome Date GA Lbr Del/2nd Weight Sex Delivery Anes PTL Lv 3 Current 2 Term 05/09/20 37w0d 09:23 / 00:54 2.81 kg (6 lb 3.1 oz) M Vag-Spont EPI N LAUREN Name: CHAD JACOBSON Apgar1: 9 Apgar5: 9 1 Term 03/06/12 40w0d 3.827 kg (8 lb 7 oz) M Vag-Spont EPI N OCT Comments: Healthy . baby passed at age 7 of Hemophagocytic Lymphohistiocytosis Obstetric Comments 2 nd preg , no PNC from 29 to 37 wks Review of Systems Systems: Constitutional Symptoms No vomiting, fever, chills, no unexpected weight changes,no headaches, no loss of appetite Eyes Denies pain, discharge, inflammation, problems with vision, photophobia, diplopia spots Head, Ears, Noes, Throat, Mouth Denies ear or neck pain, changes in hearing, dysphagia, throat problems Cardiovascular Denies chest pain, palpitations, syncope, cyanosis or unexpected dyspnea or worsening edema Respiratory Denies tachypnea, wheezing or unexpected breathing problems, cough / sputum Gastrointestinal No upper abdominal pain,no anorexia, dysphagia, blood in stool, dark tarry stools,jaundice, no unexpected changes in bowel habits, no constipation, no food intolerance Female Genitourinary No changes in sexual activity, no bleeding, No vaginal discharge Bladder No new bladder problems, no hematuria, no hesitancy, no dysuria, pain Musculoskeletal Denies any other musculoskeletal problems Skin (Breast) Denies any new changes in her skin, moles, hair patterns, acne, rashes Neurological No paresthesia or numbness, tremors, vertigo, local weakness Psychiatric No unexpected anxiety, depression, moods, stress. Negative domestic violence screening Endocrine Denies unexpected excessive sweating, changes in skin or hair texure Hematologic & Lymphatic Denies unexpected bruising, swelling of lymph nodes, prolonged bleeding Immunologic No problems with seasonal allergies / symptoms Objective: Vitals - 01/30/21 1449 Assessment Heart Rate 135-145 Fundal Height (cm) 24 Movement Present Presentation Cephalic OB Urine Dip Urine Albumin Negative Urine Glucose Negative Vaginal Drainage Draining Fluid No Fluid Odor None Fluid Amount None Edema LLE Edema None RLE Edema None Vitals: 01/30/21 1449 BP: 109/63 Pulse: 87 Weight: 76.2 kg (168 lb) Height: 5' 4 RR= Body mass index is 28.84 kg/m . TWG=3.629 kg (8 lb) General Appearance: No acute distress. A &O person, place, time, and situation. Nutrition and Development: Well developed, well nourished Comfort Level: Comfortable Level of Consciousness: Alert Appearance: Appropriate Head:Face Normal, atraumatic Eyes: General inspection, normal. Conjunctiva and lids normal Respiratory: Assessment of effort: no intercostal retractions or use of accessory muscles Abdomen: Gravid uterus, appropriate tenderness Good movements palpated S=D Mental health Judgment and insight: Appropriate and good insight Orientation: oriented to time, place, and person Recent and remote memory: Both appear to be intact Mood and affect: She is her usual self. Pleasantmood and appropriate affect. No apparent depression or inappropriate anxiety Assessment: OB History Para Term AB Living 3 2 2 0 0 1 SAB TAB Ectopic Multiple Live Births 0 0 0 0 2 # Outcome Date GA Lbr Del/2nd Weight Sex Delivery Anes PTL Lv 3 Current 2 Term 05/09/20 37w0d 09:23 / 00:54 2.81 kg (6 lb 3.1 oz) M Vag-Spont EPI N LAUREN Name: SHIMON,BABY BOY TACCARRIE Apgar1: 9 Apgar5: 9 1 Term 03/06/12 40w0d 3.827 kg (8 lb 7 oz) M Vag-Spont EPI N DEC Comments: Healthy . baby passed at age 7 of Hemophagocytic Lymphohistiocytosis Obstetric Comments 2 nd preg , no PNC from 29 to 37 wks Pt is a 30 y.o. at 23w0d who presents for ZACHARY Plan: CAREPLAN Diagnoses and all orders for this visit: Multigravida in second trimester LPNC Late care 18 wk, 1-2020 Rubella non-immune status, antepartum 23 weeks gestation of Other orders - vitamin with Ca-Iron-FA ( Vitamin Plus Low Iron) 27-1 mg Tab; Take 1 (one) tablet by mouth daily . Antepartum care. Glucola testing and additional studies 24-28 wk Blood type : O Positive Weight management Dietary and activity changes Physical distancing when appropriate and good hygiene practice. Dr. 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 [address] [place] [address] Office [phone] * Rebecca MartinezLEATHA - 01/30/2021 2:45 PM EST Vaginal bleeding:no Vaginal discharge:no Leaking of fluid:no Feeling movement: yes Contractions:no Problems:no Pt requesting refill on prenatals. Initial on 01/04/2021 Component Date Value Ref Range Status Case Report 01/04/2021 Final Value:Gynecologic Cytology Report Case: [id number] Authorizing Provider: Akil Rossi MD Collected: 01/04/2021 03:56 PM Ordering Location: [facility] Received: 01/05/2021 02:55 PM Obstetrics and Gynecology First Screen: Romy Olvera Rescreen: Amalia [place] Specimen: THINPREP PAP SMEAR, MEDICARE, Cervix LMP 01/04/2021 na Final Interpretation 01/04/2021 Negative for intraepithelial lesion or malignancy Final Specimen Adequacy 01/04/2021 Satisfactory for evaluation, endocervical/transformation zone component absent/insufficient Final Educational Note 01/04/2021 Final Value:The Pap smear is a screening test for the detection of cervical cancer and its precursor lesions. False positive and false negative results can occur. The test should be performed at regular intervals, and positive results should be confirmed before definitive therapy. Additional testing methods may be helpful in detecting abnormalities or in clinical management. The specimen has been analyzed by the ThinPrep imaging system, an automated imaging and review system which assists the laboratory in evaluating cells on ThinPrep tests. Following automated imaging selected leblanc from every slide are reviewed by a flash welder. Specimen processing and Primary Screening performed at: [facility] - [address] [place] [id number] Chlamydia trachomatis Amplified RNA 01/04/2021 NEGATIVE Negative Final Neisseria gonorrhoeae Amplfied RNA 01/04/2021 NEGATIVE Negative Final Trichomonas vaginalis Amplified RNA 01/04/2021 NEGATIVE Negative Final Lab Draw on 12/25/2020 Component Date Value Ref Range Status Screen Interpretation 12/25/2020 Negative Final Trisomy 21 (Down) Syndrome Interp. 12/25/2020 Final The risk of Down syndrome is LESS than the screening cut-off. No follow-up is indicated regarding this result. Down Syndrome Mat Age Risk 12/25/2020 1:[id number] Final Age Alone Risk 12/25/2020 1:833 Final Equivalent Age Risk 12/25/2020 < 15.0 years Final OSB Interpretation 12/25/2020 Final The maternal serum AFP result is NOT elevated for a of this gestational age. The risk of an open neural tube defect is less than the screening cut-off. OSB Risk 12/25/2020 1:01615 Final Trisomy 18 (Edward) Syndrome Inter* 12/25/2020 Final The risk of Trisomy 18 is less than the screening cut-off. This screen will detect approximately 60 % of Trisomy 18 pregnancies. Trisomy 18 Screen Risk Estimate 12/25/2020 1:16215 Final GESTATIONAL AGE BASED ON 12/25/2020 DUDLEY Final Gestational Status 12/25/2020 Wilcox Final Maternal Age At DUDLEY 12/25/2020 28.9 Years Final Weight 12/25/2020 160.0 pounds Final Race 12/25/2020 Final Insulin Dependent Diabetic 12/25/2020 No Final Screen Status 12/25/2020 Initial Sample Final MSAFP MoM 12/25/2020 1.18 Final OSB Cut-off 12/25/2020 2.84 Final AFP, Maternal 12/25/2020 50.2 ng/mL Final Estriol MoM 12/25/2020 1.24 Final Estriol 12/25/2020 1.40 ng/mL Final HCG MoM 12/25/2020 1.58 Final HCG, Total 12/25/2020 38.8 IU/mL Final Inhibin A MoM 12/25/2020 0.74 Final Inhibin A 12/25/2020 118.1 pg/mL Final Family History 12/25/2020 None Final Gestational Age 0112/25/2020 17 weeks 6 days, from DUDLEY of 05.29.2021 Final Lab Draw on 12/21/2020 Component Date Value Ref Range Status Culture 12/21/2020 > 10,000 CFU/mL mixture of normal urogenital microbiota Final HIV 1-2 Screen 12/21/2020 Negative Negative Final Hepatitis B Surface Ag 12/21/2020 Negative Negative Final WBC 12/21/2020 8.68 4.50 - 11.00 K/mcL Final RBC 12/21/2020 4.01 4.00 - 5.20 M/mcL Final Hemoglobin 12/21/2020 12.1 12.0 - 16.0 g/dL Final Hematocrit 12/21/2020 35.0* 36.0 - 46.0 % Final MCV 12/21/2020 87.3 80.0 - 100.0 fL Final MCH 12/21/2020 30.2 26.0 - 34.0 pg Final MCHC 12/21/2020 34.6 31.0 - 37.0 g/dL Final Platelets 12/21/2020 215 150 - 400 K/mcL Final RDW - CV 12/21/2020 13.4 11.6 - 14.8 % Final MPV 12/21/2020 11.1 9.4 - 12.4 fL Final Neutrophils 12/21/2020 61.1 % Final Lymphocytes 12/21/2020 27.5 % Final Monocytes 12/21/2020 9.7 % Final Eosinophils 12/21/2020 1.0 % Final Basophils 12/21/2020 0.5 % Final IG Percent 12/21/2020 0.20 % Final The IG parameter is the percentage of metamyelocytes, myelocytes and promyelocytes. An immature granulocyte count (IG) of 1% or more suggests the possibility of infection, an IG count of 3% is very likely related to an infection. Neutrophils Abs 12/21/2020 5.30 1.70 - 7.00 K/mcL Final Lymphocytes Abs 12/21/2020 2.39 0.90 - 4.00 K/mcL Final Monocytes Abs 12/21/2020 0.84 0.30 - 0.90 K/mcL Final Eosinophils Abs 12/21/2020 0.09 0.00 - 0.50 K/mcL Final Basophils Abs 12/21/2020 0.04 0.00 - 0.30 K/mcL Final IG Absolute 12/21/2020 0.02 0.00 - 0.30 K/mcL Final Nucleated RBC 12/21/2020 0.0 % Final Nucleated RBC Abs 12/21/2020 0.00 0.00 - 0.00 K/mcL Final RPR 12/21/2020 Non-Reactive Non-Reactive Final Rubella IgG Value 12/21/2020 12.0 IU/mL Final Rubella IgG 12/21/2020 Equivocal Final ABORh 12/21/2020 O Positive Final Antibody Screen 12/21/2020 Negative Final Specimen Expires 12/21/2020 12/24/2020 23:59 EST Final Lab Draw on 12/20/2020 Component Date Value Ref Range Status hCG Quant 12/20/2020 30,541* 0 - 5 mIU/mL Final documented in this encounter* Akil Rossi MD - 01/03/2020 9:33 PM EST Measurements were consistent with dates. Normal FHR and DVP. Anatomy visualized appeared normal. Choroid plexus cyst seen left horn measurin.4 cm. Low lying placenta, recheck at 28 weeks. Tracy Jung RDMS The obstetrical ultrasound report and images are reviewed. Comments made are in agreement and follow up as planned. No other apparent anomalies / abnormalities on today's study. Final Estimated Date of Delivery: 05/30/20 Akil Rossi MD documented in this encounter* Hellen Martinez MA - 10/12/2019 3:36 PM EST Patient is and presents for an obstetrical utrasound as indicated in her medical record. * Akil Rossi MD - 10/12/2019 1:30 PM EST IUP identified on today's exam consistent with 6w6d and an DUDLEY of 05-30-2020. GS and YS were visualized. Normal FHR and ovaries bilaterally. Tracy Jung RDMS Images reviewed . Endovaginal ultrasound reveals intrauterine , gestational sac , Yolk sac, CRL 6wk 6d, cardiac activity noted . Normal uterus, adnexae , and CDS . Final due date 05/30 Akil Rossi MD documented in this encounter* Akil Rossi MD - 01/17/2020 9:08 AM EST Subjective: Toni Jacobson is a 29 y.o. Estimated Date of Delivery: 05/30/20 20w6d is being seen today for her return OB visit. Chief Complaint Patient presents with Routine Visit OB History Para Term AB Living 2 1 1 0 0 0 SAB TAB Ectopic Multiple Live Births 0 0 0 0 1 # Outcome Date GA Lbr Del/2nd Weight Sex Delivery Anes PTL Lv 2 Current 1 Term 03/06/12 40w0d 3.827 kg (8 lb 7 oz) M Vag-Spont EPI N DEC Comments: Healthy . baby passed at age 7 of Hemophagocytic Lymphohistiocytosis Allergies: no known allergies. Patient has no known allergies. Outpatient Medications as of 01/17/2020 Medication Sig vit-iron fum-folic ac 28 mg iron- 800 mcg Tab Take 1 tablet by mouth daily . Toni Jacobson Home Medication Instructions Prior to Surgery KRISTEN: Printed on:01/17/20 0908 Medication Information Take last dose on Take the morning of surgery Comment(s) vit-iron fum-folic ac 28 mg iron- 800 mcg Tab Take 1 tablet by mouth daily . Past Medical History: Diagnosis Date Rubella non-immune status, antepartum 10/11/2019 No past surgical history on file. No family history on file. Social History Tobacco Use Smoking status: Former Smoker Packs/day: 0.00 Smokeless tobacco: Never Used Substance Use Topics Alcohol use: Not Currently Drug use: Never Social History Substance and Sexual Activity Alcohol Use Not Currently Social History Substance and Sexual Activity Drug Use Never Social History Tobacco Use Smoking Status Former Smoker Packs/day: 0.00 Smokeless Tobacco Never Used OB History Para Term AB Living 2 1 1 0 0 0 SAB TAB Ectopic Multiple Live Births 0 0 0 0 1 # Outcome Date GA Lbr Del/2nd Weight Sex Delivery Anes PTL Lv 2 Current 1 Term 03/06/12 40w0d 3.827 kg (8 lb 7 oz) M Vag-Spont EPI N OCT Comments: Healthy . baby passed at age 7 of Hemophagocytic Lymphohistiocytosis Review of Systems Systems: Constitutional Symptoms No vomiting, fever, chills, no unexpected weight changes,no headaches, no loss of appetite Eyes Denies pain, discharge, inflammation, problems with vision, photophobia, diplopia spots Head, Ears, Noes, Throat, Mouth Denies ear or neck pain, changes in hearing, dysphagia, throat problems Cardiovascular Denies chest pain, palpitations, syncope, cyanosis or unexpected dyspnea or worsening edema Respiratory Denies tachypnea, wheezing or unexpected breathing problems, cough / sputum Gastrointestinal No upper abdominal pain,no anorexia, dysphagia, blood in stool, dark tarry stools,jaundice, no unexpected changes in bowel habits, no constipation, no food intolerance Female Genitourinary No changes in sexual activity, no bleeding, No vaginal discharge Bladder No new bladder problems, no hematuria, no hesitancy, no dysuria, pain Musculoskeletal Denies any other musculoskeletal problems Skin (Breast) Denies any new changes in her skin, moles, hair patterns, acne, rashes Neurological No paresthesia or numbness, tremors, vertigo, local weakness Psychiatric No unexpected anxiety, depression, moods, stress. Negative domestic violence screening Endocrine Denies unexpected excessive sweating, changes in skin or hair texure Hematologic & Lymphatic Denies unexpected bruising, swelling of lymph nodes, prolonged bleeding Immunologic No problems with seasonal allergies / symptoms Objective: Vitals - 01/17/20 0857 Assessment Movement Present OB Urine Dip Urine Albumin Trace Urine Glucose Negative Ketones Negative Vitals: 01/17/20 0857 BP: 105/71 Weight: 68.9 kg (152 lb) Height: 5' 4 RR=16 Vitals - 01/17/20 0857 Assessment Heart Rate 140-150 Fundal Height (cm) 20 Movement Present Presentation Breech OB Urine Dip Urine Albumin Trace Urine Glucose Negative Ketones Negative Vaginal Drainage Draining Fluid No Fluid Odor None Fluid Amount None Edema LLE Edema None RLE Edema None Facial Edema None Body mass index is 26.09 kg/m . TWG=4.147 kg (9 lb 2.3 oz) General Appearance: No acute distress. A &O person, place, time, and situation. Nutrition and Development: Well developed, well nourished Comfort Level: Comfortable Level of Consciousness: Alert Appearance: Appropriate Head:Face Normal, atraumatic Eyes: General inspection, normal. Conjunctiva and lids normal Respiratory: Assessment of effort: no intercostal retractions or use of accessory muscles Abdomen: Gravid uterus, appropriate tenderness Good movements palpated S=D Mental health Judgment and insight: Appropriate and good insight Orientation: oriented to time, place, and person Recent and remote memory: Both appear to be intact Mood and affect: She is her usual self. Pleasantmood and appropriate affect. No apparent depression or inappropriate anxiety Assessment: OB History Para Term AB Living 2 1 1 0 0 0 SAB TAB Ectopic Multiple Live Births 0 0 0 0 1 # Outcome Date GA Lbr Del/2nd Weight Sex Delivery Anes PTL Lv 2 Current 1 Term 03/06/12 40w0d 3.827 kg (8 lb 7 oz) M Vag-Spont EPI N DEC Comments: Healthy . baby passed at age 7 of Hemophagocytic Lymphohistiocytosis Pt is a 29 y.o. at 20w6d who presents for ZACHARY Plan: CAREPLAN Diagnoses and all orders for this visit: Multigravida in second trimester High risk multigravida, second trimester Low-lying placenta in second trimester Breech presentation, single or unspecified fetus Rubella non-immune status, antepartum 20 weeks gestation of Antepartum care. Glucola testing between 24- 28 wk appointment, and additional studies Blood type : O Positive Weight management Dietary and activity changes Return to office in [address] Akil Rossi MD , FACOG 01/17/20 * Hellen Martinez MA - 01/17/2020 9:01 AM EST 20w6d Chief Complaint Patient presents with Routine Visit OB History Para Term AB Living 2 1 1 0 0 0 SAB TAB Ectopic Multiple Live Births 0 0 0 0 1 # Outcome Date GA Lbr Del/2nd Weight Sex Delivery Anes PTL Lv 2 Current 1 Term 03/06/12 40w0d 3.827 kg (8 lb 7 oz) M Vag-Spont EPI N DEC Comments: Healthy . baby passed at age 7 of Hemophagocytic Lymphohistiocytosis Lab Draw on 12/14/2019 Component Date Value Ref Range Status Screen Interpretation 12/14/2019 Negative Final Trisomy 21 (Down) Syndrome Interp. 12/14/2019 Final The risk of Down syndrome is LESS than the screening cut-off. No follow-up is indicated regarding this result. Down Syndrome Mat Age Risk 12/14/2019 1:46660 Final Age Alone Risk 12/14/2019 1:905 Final Equivalent Age Risk 12/14/2019 < 15.0 years Final OSB Interpretation 12/14/2019 Final The maternal serum AFP result is NOT elevated for a of this gestational age. The risk of an open neural tube defect is less than the screening cut-off. OSB Risk 12/14/2019 1:08741 Final Trisomy 18 (Edward) Syndrome Inter* 12/14/2019 Final The risk of Trisomy 18 is less than the screening cut-off. This screen will detect approximately 60 % of Trisomy 18 pregnancies. Trisomy 18 Screen Risk Estimate 12/14/2019 1:08846 Final GESTATIONAL AGE BASED ON 12/14/2019 DUDLEY Final Gestational Status 12/14/2019 Wilcox Final Maternal Age At DUDLEY 12/14/2019 27.9 Years Final Weight 12/14/2019 147.0 pounds Final Race 12/14/2019 Final Insulin Dependent Diabetic 12/14/2019 No Final Screen Status 12/14/2019 Initial Sample Final MSAFP MoM 12/14/2019 1.17 Final OSB Cut-off 12/14/2019 2.84 Final AFP, Maternal 12/14/2019 40.7 ng/mL Final Estriol MoM 12/14/2019 1.18 Final Estriol 12/14/2019 0.88 ng/mL Final HCG MoM 12/14/2019 1.74 Final HCG, Total 12/14/2019 64.9 IU/mL Final Inhibin A MoM 12/14/2019 0.84 Final Inhibin A 12/14/2019 137.5 pg/mL Final Family History 12/14/2019 None Final Gestational Age 0112/14/2019 16 weeks 0 day, from DUDLEY of 05.30.2020 Final Routine on 11/29/2019 Component Date Value Ref Range Status Trichomonas vaginalis 11/29/2019 Refer to Trichomonas Amplified RNA Result Negative Final Gardnerella vaginalis 11/29/2019 Negative Negative Final Grace Species 11/29/2019 Negative Negative Final Chlamydia trachomatis Amplified RNA 11/29/2019 NEGATIVE Negative Final Neisseria gonorrhoeae Amplfied RNA 11/29/2019 NEGATIVE Negative Final Trichomonas vaginalis Amplified RNA 11/29/2019 NEGATIVE Negative Final Any vaginal bleeding? no Any vaginal discharge? no Any leaking of fluid? no Feeling movement? yes Having any contractions? No Any other problems? denies documented in this encounter* Akil Rossi MD - 02/27/2021 2:26 PM EDT Subjective: Toni Jacobson is a 30 y.o. Estimated Date of Delivery: 05/29/21 27w0d is being seen today for her return OB visit. Chief Complaint Patient presents with Routine Visit Glucola/Labs OB History Para Term AB Living 3 2 2 0 0 1 SAB TAB Ectopic Multiple Live Births 0 0 0 0 2 # Outcome Date GA Lbr Del/2nd Weight Sex Delivery Anes PTL Lv 3 Current 2 Term 05/09/20 37w0d 09:23 / 00:54 2.81 kg (6 lb 3.1 oz) M Vag-Spont EPI N LAUREN Name: CHAD JACOBSON Apgar1: 9 Apgar5: 9 1 Term 03/06/12 40w0d 3.827 kg (8 lb 7 oz) M Vag-Spont EPI N DEC Comments: Healthy . baby passed at age 7 of Hemophagocytic Lymphohistiocytosis Obstetric Comments 2 nd preg , no PNC from 29 to 37 wks Allergies: Patient has no known allergies. Patient has no known allergies. Outpatient Medications as of 02/27/2021 Medication Sig metoclopramide (REGLAN) 10 MG tablet Take 1 (one) tablet (10 mg total) by mouth 4 (four) times a day as needed (Nausea with vomiting) . vitamin with Ca-Iron-FA ( Vitamin Plus Low Iron) 27-1 mg Tab Take 1 (one) tablet by mouth daily . (Patient taking differently: Take 1 tablet by mouth daily Reasons: OTC.) Toni Jacobson Home Medication Instructions Prior to Surgery KRISTEN: Printed on:02/27/21 2997 Medication Information Take last dose on Take the morning of surgery Comment(s) metoclopramide (REGLAN) 10 MG tablet Take 1 (one) tablet (10 mg total) by mouth 4 (four) times a day as needed (Nausea with vomiting) . vitamin with Ca-Iron-FA ( Vitamin Plus Low Iron) 27-1 mg Tab Take 1 (one) tablet by mouth daily . Past Medical History: Diagnosis Date Rubella non-immune status, antepartum 10/11/2019 No past surgical history on file. No family history on file. Social History Tobacco Use Smoking status: Former Smoker Packs/day: 0.00 Smokeless tobacco: Never Used Substance Use Topics Alcohol use: Not Currently Drug use: Never Social History Substance and Sexual Activity Alcohol Use Not Currently Social History Substance and Sexual Activity Drug Use Never Social History Tobacco Use Smoking Status Former Smoker Packs/day: 0.00 Smokeless Tobacco Never Used OB History Para Term AB Living 3 2 2 0 0 1 SAB TAB Ectopic Multiple Live Births 0 0 0 0 2 # Outcome Date GA Lbr Del/2nd Weight Sex Delivery Anes PTL Lv 3 Current 2 Term 05/09/20 37w0d 09:23 / 00:54 2.81 kg (6 lb 3.1 oz) M Vag-Spont EPI N LAUREN Name: CHAD JACOBSON Apgar1: 9 Apgar5: 9 1 Term 03/06/12 40w0d 3.827 kg (8 lb 7 oz) M Vag-Spont EPI N DEC Comments: Healthy . baby passed at age 7 of Hemophagocytic Lymphohistiocytosis Obstetric Comments 2 nd preg , no PNC from 29 to 37 wks Review of Systems Systems: Constitutional Symptoms No vomiting, fever, chills, unexpected weight changes, headaches, loss of appetite Eyes Denies pain, discharge, inflammation, problems with vision, photophobia, diplopia spots Head, Ears, Noes, Throat, Mouth Denies ear or neck pain, changes in hearing, dysphagia, throat problems Cardiovascular Denies chest pain, palpitations, syncope, cyanosis or unexpected dyspnea, No worsening edema Respiratory Denies tachypnea, wheezing or unexpected breathing problems, cough / sputum Gastrointestinal No upper abdominal pain,no anorexia, dysphagia, blood in stool, dark tarry stools,jaundice, no unexpected changes in bowel habits, no constipation, no new food intolerance Female Genitourinary No changes in sexual activity, no bleeding , No vaginal discharge Bladder No new bladder problems, such as hematuria, hesitancy, No dysuria, pain Musculoskeletal Denies any other musculoskeletal problems Skin (Breast) Denies any new changes in her skin, moles, hair patterns, acne, rashes Neurological No paresthesia or numbness, vertigo, local weakness Psychiatric No unexpected anxiety, depression, moods, stress. Negative domestic violence screening Endocrine Denies unexpected excessive sweating, changes in skin or hair texure Hematologic & Lymphatic Denies unexpected bruising, swelling of lymph nodes, prolonged bleeding Immunologic No problems with seasonal allergies / symptoms Objective: Vitals No documentation. Vitals: 02/27/21 1406 BP: 114/66 Pulse: 92 Weight: 81.6 kg (180 lb) Height: 5' 4 RR=16 Body mass index is 30.9 kg/m . TWG=9.072 kg (20 lb) General Appearance: A &O person, place, time, and situation. Nutrition and Development: Overweight Comfort Level: In no acute distress Level of Consciousness: Alert Appearance: Appropriate Head:Face Normal, atraumatic Eyes General inspection, normal. Conjunctiva and lids normal Respiratory: Assessment of effort: no intercostal retractions or use of accessory muscles Abdomen: Gravid uterus, appropriate tenderness Good movements palpated S=D Extremities Edema: dep Mental health Judgment and insight: Appropriate and good insight Orientation: oriented to time, place, and person Recent and remote memory: Both appear to be intact Mood and affect: She is her usual self. Pleasantmood and appropriate affect. No apparent depression or inappropriate anxiety Assessment: OB History Para Term AB Living 3 2 2 0 0 1 SAB TAB Ectopic Multiple Live Births 0 0 0 0 2 # Outcome Date GA Lbr Del/2nd Weight Sex Delivery Anes PTL Lv 3 Current 2 Term 05/09/20 37w0d 09:23 / 00:54 2.81 kg (6 lb 3.1 oz) M Vag-Spont EPI N LAUREN Name: SHIMONBABY BOY BENYCARRIE Apgar1: 9 Apgar5: 9 1 Term 03/06/12 40w0d 3.827 kg (8 lb 7 oz) M Vag-Spont EPI N DEC Comments: Healthy . baby passed at age 7 of Hemophagocytic Lymphohistiocytosis Obstetric Comments 2 nd preg , no PNC from 29 to 37 wks Pt is a 30 y.o. at 27w0d who presents for ZACHARY Plan: CAREPLAN Diagnoses and all orders for this visit: Multigravida in second trimester LPNC Encounter for screening - CBC; Future - Gestational Diabetes Screen (50G); Future - TSH with Reflex Free T4; Future - Syphilis Antibody; Future Late care 18 wk, -2020 27 weeks gestation of Rubella non-immune status, antepartum Antepartum care. Labs reviewed. Signs and symptoms of labor. Weight management. Domestic violence screening Physical distancing when appropriate and good hygiene practice. Blood type : O Positive Rhogam: no Dr. 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 [address] [place] [address] Office [phone] * Rebecca Martinez LPN - 02/27/2021 2:03 PM EDT 27w0d Chief Complaint Patient presents with Routine Visit Glucola/Labs OB History Para Term AB Living 3 2 2 0 0 1 SAB TAB Ectopic Multiple Live Births 0 0 0 0 2 # Outcome Date GA Lbr Del/2nd Weight Sex Delivery Anes PTL Lv 3 Current 2 Term 05/09/20 37w0d 09:23 / 00:54 2.81 kg (6 lb 3.1 oz) M Vag-Spont EPI N LAUREN Name: SHIMONBABY BOY VIDALRIEb Apgar1: 9 Apgar5: 9 1 Term 03/06/12 40w0d 3.827 kg (8 lb 7 oz) M Vag-Spont EPI N DEC Comments: Healthy . baby passed at age 7 of Hemophagocytic Lymphohistiocytosis Obstetric Comments 2 nd preg , no PNC from 29 to 37 wks Initial on 01/04/2021 Component Date Value Ref Range Status Case Report 01/04/2021 Final Value:Gynecologic Cytology Report Case: [id number] Authorizing Provider: Akil Rossi MD Collected: 01/04/2021 03:56 PM Ordering Location: [facility] Received: 01/05/2021 02:55 PM Obstetrics and Gynecology First Screen: Romy Olvera Rescreen: Amalia Bermudez Specimen: THINPREP PAP SMEAR, MEDICARE, Cervix LMP 01/04/2021 na Final Interpretation 01/04/2021 Negative for intraepithelial lesion or malignancy Final Specimen Adequacy 01/04/2021 Satisfactory for evaluation, endocervical/transformation zone component absent/insufficient Final Educational Note 01/04/2021 Final Value:The Pap smear is a screening test for the detection of cervical cancer and its precursor lesions. False positive and false negative results can occur. The test should be performed at regular intervals, and positive results should be confirmed before definitive therapy. Additional testing methods may be helpful in detecting abnormalities or in clinical management. The specimen has been analyzed by the ThinPrep imaging system, an automated imaging and review system which assists the laboratory in evaluating cells on ThinPrep tests. Following automated imaging selected leblanc from every slide are reviewed by a flash welder. Specimen processing and Primary Screening performed at: [place] [address] Chlamydia trachomatis Amplified RNA 01/04/2021 NEGATIVE Negative Final Neisseria gonorrhoeae Amplfied RNA 01/04/2021 NEGATIVE Negative Final Trichomonas vaginalis Amplified RNA 01/04/2021 NEGATIVE Negative Final Any vaginal bleeding? no Any vaginal discharge? no Any leaking of fluid? no Feeling movement? yes Having any contractions? no Any other problems? complains of right axillary swelling the last few weeks documented in this encounter* Akil Rossi MD - 12/14/2019 1:46 PM EST Subjective: Toni Jacobson is a 29 y.o. Estimated Date of Delivery: 05/30/20 16w0d is being seen today for her return OB visit. Chief Complaint Patient presents with Routine Visit OB History Para Term AB Living 2 1 1 0 0 0 SAB TAB Ectopic Multiple Live Births 0 0 0 0 1 # Outcome Date GA Lbr Del/2nd Weight Sex Delivery Anes PTL Lv 2 Current 1 Term 03/06/12 40w0d 3.827 kg (8 lb 7 oz) M Vag-Spont EPI N DEC Comments: Healthy . baby passed at age 7 of Hemophagocytic Lymphohistiocytosis She looks better, and is due for tetra. Allergies: no known allergies. Patient has no known allergies. Outpatient Medications as of 12/14/2019 Medication Sig vit-iron fum-folic ac 28 mg iron- 800 mcg Tab Take 1 tablet by mouth daily . Toni Jacobson Home Medication Instructions Prior to Surgery KRISTEN: Printed on:12/14/19 4794 Medication Information Take last dose on Take the morning of surgery Comment(s) vit-iron fum-folic ac 28 mg iron- 800 mcg Tab Take 1 tablet by mouth daily . Past Medical History: Diagnosis Date High-risk in first trimester 09/24/2019 Rubella non-immune status, antepartum 10/11/2019 No past surgical history on file. No family history on file. Social History Tobacco Use Smoking status: Former Smoker Packs/day: 0.00 Smokeless tobacco: Never Used Substance Use Topics Alcohol use: Not Currently Drug use: Never Social History Substance and Sexual Activity Alcohol Use Not Currently Social History Substance and Sexual Activity Drug Use Never Social History Tobacco Use Smoking Status Former Smoker Packs/day: 0.00 Smokeless Tobacco Never Used Review of Systems Systems: Constitutional Symptoms No vomiting, fever, chills, no unexpected weight changes,no headaches, no loss of appetite Eyes Denies pain, discharge, inflammation, problems with vision, photophobia, diplopia spots Head, Ears, Noes, Throat, Mouth Denies ear or neck pain, changes in hearing, dysphagia, throat problems Cardiovascular Denies chest pain, palpitations, syncope, cyanosis or unexpected dyspnea or worsening edema Respiratory Denies tachypnea, wheezing or unexpected breathing problems, cough / sputum Gastrointestinal No upper abdominal pain,no anorexia, dysphagia, blood in stool, dark tarry stools,jaundice, no unexpected changes in bowel habits, no constipation, no food intolerance Female Genitourinary No changes in sexual activity, no bleeding , No vaginal discharge Bladder No new bladder problems, such as hematuria, hesitancy, no dysuria, pain Musculoskeletal Denies any other musculoskeletal problems Skin (Breast) Denies any new changes in her skin, moles, hair patterns, acne, rashes Neurological Denies paresthesia or numbness, tremors, vertigo, local weakness Psychiatric Denies any unexpected anxiety, depression, moods, stress. Negative domestic violence screening Endocrine Denies unexpected excessive sweating, changes in skin or hair texure Hematologic & Lymphatic Denies unexpected bruising, swelling of lymph nodes, prolonged bleeding Immunologic No problems with seasonal allergies / symptoms Objective: Vitals - 12/14/19 1336 Assessment Movement Absent OB Urine Dip Urine Albumin Trace Urine Glucose Negative Ketones Negative Vitals: 12/14/19 1336 BP: 111/76 Weight: 66.7 kg (147 lb) Height: 5' 4 RR=16 Vitals - 12/14/19 1336 Assessment Heart Rate 150-160 Fundal Height (cm) 18 Movement Absent Presentation Cephalic OB Urine Dip Urine Albumin Trace Urine Glucose Negative Ketones Negative Vaginal Drainage Draining Fluid No Fluid Odor None Fluid Amount None Edema LLE Edema None RLE Edema None Facial Edema None Body mass index is 25.23 kg/m . TWG=-536.6 kg (-1183 lb) General Appearance: A &O person, place, time, and situation. Nutrition and Development: Well developed, well nourished Comfort Level: In no acute distress. Level of Consciousness: Alert Appearance: Appropriate Head:Face Normal, atraumatic Eyes: General inspection, normal. Conjunctiva and lids normal Respiratory: Assessment of effort: no intercostal retractions or use of accessory muscles Looks comfortable. Abdomen: Soft, appropriate tenderness, nondistended, no masses Hernia: No hernias Uterus: Gravid. S D Mental health Judgment and insight: Appropriate and good insight Orientation: oriented to time, place, and person Recent and remote memory: Both appear to be intact Mood and affect: She is her usual self. Pleasantmood and appropriate affect. No apparent depression or inappropriate anxiety Routine on 11/29/2019 Component Date Value Ref Range Status Trichomonas vaginalis 11/29/2019 Refer to Trichomonas Amplified RNA Result Negative Final Gardnerella vaginalis 11/29/2019 Negative Negative Final Grace Species 11/29/2019 Negative Negative Final Chlamydia trachomatis Amplified RNA 11/29/2019 NEGATIVE Negative Final Neisseria gonorrhoeae Amplfied RNA 11/29/2019 NEGATIVE Negative Final Trichomonas vaginalis Amplified RNA 11/29/2019 NEGATIVE Negative Final Initial on 10/25/2019 Component Date Value Ref Range Status Case Report 10/25/2019 Final Value:Gynecologic Cytology Report Case: [id number] Authorizing Provider: Akil Rossi MD Collected: 10/25/2019 11:17 AM Ordering Location: [facility] Received: 10/26/2019 09:56 AM Obstetrics and Gynecology First Screen: Amalia Bermudez Specimen: THINPREP PAP SMEAR, MEDICARE, Cervix / Endocervix LMP 10/25/2019 na Final Interpretation 10/25/2019 Negative for intraepithelial lesion or malignancy Final Specimen Adequacy 10/25/2019 Satisfactory for evaluation; transformation zone/endocervical component present Final Educational Note 10/25/2019 Final Value:The Pap smear is a screening test for the detection of cervical cancer and its precursor lesions. False positive and false negative results can occur. The test should be performed at regular intervals, and positive results should be confirmed before definitive therapy. Additional testing methods may be helpful in detecting abnormalities or in clinical management. Specimen Processing and Primary Screening performed at: [facility] - [address] [place] [address] Chlamydia trachomatis Amplified RNA 10/25/2019 NEGATIVE Negative Final Neisseria gonorrhoeae Amplfied RNA 10/25/2019 NEGATIVE Negative Final Trichomonas vaginalis Amplified RNA 10/25/2019 NEGATIVE Negative Final Assessment: Pt is a 29 y.o. at 16w0d who presents for ZACHARY OB History Para Term AB Living 2 1 1 0 0 0 SAB TAB Ectopic Multiple Live Births 0 0 0 0 1 # Outcome Date GA Lbr Del/2nd Weight Sex Delivery Anes PTL Lv 2 Current 1 Term 03/06/12 40w0d 3.827 kg (8 lb 7 oz) M Vag-Spont EPI N OCT Comments: Healthy . baby passed at age 7 of Hemophagocytic Lymphohistiocytosis Plan: CAREPLAN Diagnoses and all orders for this visit: Multigravida in second trimester 16 weeks gestation of Rubella non-immune status, antepartum High risk multigravida, second trimester Encounter for screening - Maternal Downs Screen AFP4; Future She understands that tetra screening ( ordered and to be completed today , and can be completed before 19 wk) is used to estimate risk which may lead to diagnosing problems and reducing riskof mismanagement. She understands that such blood screening tests can help in detecting (for example) such problems as genetic abnormalities, defects, risk for preeclampsia, IUGR, stillbirth and open neural tube defects ( hence scheduling and consultation with neurosurgery). She does accept testing. I spent approximately 15 minutes [id number] discussing and reviewing her chart records, medication list and clarifying her symptoms, diagnosis, diagnosis, prognosis and treatment. >50% of that time was on counselling and coordination. Her questions are all answered and she is remindedto call should she have any future concerns or question Dietary and activity changes for a healthy weight gain during her . Risk reduction strategies. Domestic violence screening Obstetrical ultrasound for anatomic screening and the above findings. Return to office in [address] Akil Rossi MD , FACOG 12/14/19 * Hellen Martinez MA - 12/14/2019 1:40 PM EST 16w0d Chief Complaint Patient presents with Routine Visit OB History Para Term AB Living 2 1 1 0 0 0 SAB TAB Ectopic Multiple Live Births 0 0 0 0 1 # Outcome Date GA Lbr Del/2nd Weight Sex Delivery Anes PTL Lv 2 Current 1 Term 03/06/12 40w0d 3.827 kg (8 lb 7 oz) M Vag-Spont EPI N DEC Comments: Healthy . baby passed at age 7 of Hemophagocytic Lymphohistiocytosis Routine on 11/29/2019 Component Date Value Ref Range Status Trichomonas vaginalis 11/29/2019 Refer to Trichomonas Amplified RNA Result Negative Final Gardnerella vaginalis 11/29/2019 Negative Negative Final Grace Species 11/29/2019 Negative Negative Final Chlamydia trachomatis Amplified RNA 11/29/2019 NEGATIVE Negative Final Neisseria gonorrhoeae Amplfied RNA 11/29/2019 NEGATIVE Negative Final Trichomonas vaginalis Amplified RNA 11/29/2019 NEGATIVE Negative Final Initial on 10/25/2019 Component Date Value Ref Range Status Case Report 10/25/2019 Final Value:Gynecologic Cytology Report Case: [id number] Authorizing Provider: Akil Rossi MD Collected: 10/25/2019 11:17 AM Ordering Location: [facility] Received: 10/26/2019 09:56 AM Obstetrics and Gynecology First Screen: Amalia Bermudez Specimen: THINPREP PAP SMEAR, MEDICARE, Cervix / Endocervix LMP 10/25/2019 na Final Interpretation 10/25/2019 Negative for intraepithelial lesion or malignancy Final Specimen Adequacy 10/25/2019 Satisfactory for evaluation; transformation zone/endocervical component present Final Educational Note 10/25/2019 Final Value:The Pap smear is a screening test for the detection of cervical cancer and its precursor lesions. False positive and false negative results can occur. The test should be performed at regular intervals, and positive results should be confirmed before definitive therapy. Additional testing methods may be helpful in detecting abnormalities or in clinical management. Specimen Processing and Primary Screening performed at: [facility] - [address] [place] [address] Chlamydia trachomatis Amplified RNA 10/25/2019 NEGATIVE Negative Final Neisseria gonorrhoeae Amplfied RNA 10/25/2019 NEGATIVE Negative Final Trichomonas vaginalis Amplified RNA 10/25/2019 NEGATIVE Negative Final Any vaginal bleeding? no Any vaginal discharge? no Any leaking of fluid? no Feeling movement? no Having any contractions? no Any other problems? denies documented in this encounter Chief Complaint PT HERE TODAY AMENORRHEA. PT DENIES ANY BREAST TENDERNESS, NAUSEA, VOMITING, BLEEDING, AND CRAMPING. PT IS TAKING HER VITAMINS SOMETIMES. PT HAS HAD 3 VAGINAL DELIVERIES. LMP 08/21/22 Chief Complaint and Reason for Visit Chief Complaint Admit Date EST NEW PT - EST NEW PT January 13 8:31am CONCERN FOR SINUS INFECTION February 21, 2025 4:41pm shortness of breath May 04, 2025 9:16a m high bp May 09, 2025 1:13p m Reason for Visit Admit Date Post-surgical hypothyroidism January 132024 8:31am Establishing care with new doctorpraveen for January 13, 2025 8:31am Presence of intrauterine contraceptive d evice January 13, 2025 8:31am History of thyroid cancer January 13, 2025 8:31am Rectal pain January 13, 2025 8:31am Dyspnea May 09, 2025 1:13p m Elevated blood-pressure read ing without diagnosis of hypertension May 09, 2025 1:13pm Post-surgical hypothyroidism May 09 1:13pm Additional Source Comments INFORMATION SOURCE (unrecogn ized section and content) DATE CREATED AUTHOR 05/26/2018 [facility] DATE CREATED AUTHOR AUTHOR'S ORGANIZ ATION 06/26/2022 [facility] DATE CREATED AUTHOR AUTHOR'S ORGANIZ ATION 03/15/2023 [employer] DATE CREATED AUTHOR AUTHOR'S ORGANIZ ATION 06/12/2023 [facility] DATE CREATED AUTHOR AUTHOR'S ORGANIZ ATION 09/07/2023 [facility] DATE CREATED AUTHOR AUTHOR'S ORGANIZ ATION 09/07/2023 [facility] DATE CREATED AUTHOR AUTHOR'S ORGANIZ ATION 10/20/2023 [facility] DATE CREATED AUTHOR AUTHOR'S ORGANIZ ATION 05/03/2024 [facility] DATE CREATED AUTHOR AUTHOR'S ORGANIZ ATION 10/06/2024 [facility] DATE CREATED AUTHOR AUTHOR'S ORGANIZ ATION 02/10/2025 [facility] DATE CREATED AUTHOR AUTHOR[facility]S ORGANIZ ATION [facility] DATE CREATED AUTHOR AUTHOR'S ORGANIZ ATION 05/05/2025 [facility] DATE CREATED AUTHOR AUTHOR'S ORGANIZ ATION 05/05/2025 [facility] Reason for Visit (unrecogniz ed section and content) Reason Comments Rupture of Membranes Contractions Status Reason Specialty Diagnoses / Procedures Referre d By Contact Referred To Contact Reason Comments Urinary Pain think I have a uti Reason Comments Vaginal Itching vaginal itching on a nd off for the past several days. pt states changed soap and since then has had occasional vaginal itching. denies discharge Reason Comments Abdominal Pain c/o lt sided abd blanca n x 3 days. denies injury. pain worse with movement. denies pain with urination or change in bowel. states last period was 2 months ago, unsure if is . denies vaginal discharge Reason Comments Appointment Reason Comments Initial Visit OBI Reason Comments Initial Visit NOBS Reason Comments Routine Visit ROBS Vaginitis Itching Reason Comments Routine Visit Glucola, Labs Reason Comments Ultrasound Reason Comments Routine Visit TDAP Reason Comments Rupture of Membranes pt states water bro ke at home Reason Comments Dental Pain pt c/o toothache for 2 days Reason Comments Abdominal Pain Pt stated she has be en having left lower quadrant pain for the past 5 days. It comes and goes and has taken pain relievers but have not helped with the pain. Last BM was yesterday and no issues voiding. Reason Comments Vaginal Discharge pt reports a white v aginal discharge x 2 weeks. also reports urinary frequency. Reason Comments Routine Visit ROBS Reason Comments Ultrasound Menstrual Problem Reason Comments Routine Visit Reason Comments Rib Pain Reason Comments Routine Visit Glucola/Labs Reason Comments Urinary Urgency Patient c/o painful urination and urgency that started about 2 hrs ago Reason Comments Vaginal Bleeding mucous and leaking Reason Comments Rupture of Membranes Status Reason Specialty Diagnoses / Procedures Referre d By Contact Referred To Contact Diagnoses Reason Comments Bladder Infection Patient reports of u rgency and lower abd pain that radiates to kidney area, cloudy urine for 3 days Reason Comments Establish Care No issues today just needs to establish with PCP Reason Comments Follow-up Recheck fatigue and rt cerumen impaction. 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 Thyroid Problem Goiter on neck Reason Comments Follow-up Imaging and labs in chart for goiter Reason Comments Follow-up 2 week follow up FNA biopsy Reason Comments Pre-operative Medical Risk Stratificatio n Specialty Diagnoses / Procedures Referred By Caroline tineo Referred To Contact Diagnoses Goiter Hyperthyroidism Goiter [E04.9] Hyperthyroidism [E05.90] Procedures UT THYROIDECTOMY TOTAL/COMPLETE UT CERVICAL LYMPHADEC MODIFIED RADICAL NECK DSHector Oliva MD [address] [facility] [address] [place] [address] Referral ID Status Reason Start Date Expiration Date Visits Re quested Visits Authorized [id number] 12/08/2023 1 1 Reason Comments Post-op Post op thyroidectom y 12/31 Reason Comments Thyroid Problem Primary thyroid canc er, recheck thyroid levels and refill Reason Comments Headache C/o headache x 2 wee ks. Also c/o cough and congestion. Denies fever Reason Comments Thyroid Cancer Specialty Diagnoses / Procedures Referred By Contac t Referred To Contact Endocrinology Diagnoses Primary thyroid cancer (HCC) Hector Cerna MD [address] [facility] [address] [place] [address] Andres August MD [address] [place] [address] Referral ID Status Reason Start Date Expiration Date Visits Re quested Visits Authorized [id number] Closed 01/13/2024 01/12/2025 1 1 Reason Comments Vaginal Discharge Patient complains of cloudy white vaginal discharge for 1-2 weeks, states she is concerned about an STI, also complains of rectal burning after bowel movements for a few months Reason Comments Follow-up 3MO F/U PAPILLARY TH YROID CANCER SURVEILLANCE Akil Rossi MD - 05/09/2020 5:32 PM EDT H&P Notes (unrecognized sect ion and content) HISTORY AND PHYSICAL UPDATE Assessment/Plan: Patient Active Problem List Diagnosis Rubella non-immune status, antepartum Choroid plexus cyst Multigravida in third trimester High risk multigravida, third trimester Indication for care in labor and delivery, antepartum 37 weeks gestation of Full-term premature rupture of membranes with onset of labor within 24 hours of rupture Principal Problem: Full-term premature rupture of membranes with onset of labor within 24 hours of rupture Active Problems: Rubella non-immune status, antepartum Multigravida in third trimester High risk multigravida, third trimester Indication for care in labor and delivery, antepartum 37 weeks gestation of OB History Para Term AB Living 2 1 1 0 0 0 SAB TAB Ectopic Multiple Live Births 0 0 0 0 1 # Outcome Date GA Lbr Del/2nd Weight Sex Delivery Anes PTL Lv 2 Current 1 Term 03/06/12 40w0d 3.827 kg (8 lb 7 oz) M Vag-Spont EPI N DEC Comments: Healthy . baby passed at age 9 of Hemophagocytic Lymphohistiocytosis IUP @ 37w0d Obstetrical management Subjective: Chief Complaint Patient presents with Rupture of Membranes pt states water broke at home Toni Jacobson is a 29 y.o. female with Estimated Date of Delivery: 05/30/20 at 37w0d gestation who is being admitted for induction of labor and management of labor. 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 History The following past medical history, Medical/Surgical/Family/Social history, Medications and Allergies, and Physical Exam have been reviewed and are part of the record and are unchanged Allergies: no known allergies. Patient has no known allergies. Outpatient Medications as of 05/09/2020 Medication Sig vit-iron fum-folic ac 28 mg iron- 800 mcg Tab Take 1 tablet by mouth daily . Toni Jacobson Home Medication Instructions Prior to Surgery KRISTEN:[id number] Printed on:05/09/20 6810 Medication Information Take last dose on Take the morning of surgery Comment(s) vit-iron fum-folic ac 28 mg iron- 800 mcg Tab Take 1 tablet by mouth daily . Past Medical History: Diagnosis Date Rubella non-immune status, antepartum 10/11/2019 History reviewed. No pertinent surgical history. History reviewed. No pertinent family history. Social History Tobacco Use Smoking status: Former Smoker Packs/day: 0.00 Smokeless tobacco: Never Used Substance Use Topics Alcohol use: Not Currently Drug use: Never Social History Substance and Sexual Activity Alcohol Use Not Currently Social History Substance and Sexual Activity Drug Use Never Social History Tobacco Use Smoking Status Former Smoker Packs/day: 0.00 Smokeless Tobacco Never Used OB History Para Term AB Living 2 1 1 0 0 0 SAB TAB Ectopic Multiple Live Births 0 0 0 0 1 # Outcome Date GA Lbr Del/2nd Weight Sex Delivery Anes PTL Lv 2 Current 1 Term 03/06/12 40w0d 3.827 kg (8 lb 7 oz) M Vag-Spont EPI N DEC Comments: Healthy . baby passed at age 9 of Hemophagocytic Lymphohistiocytosis Objective: Vital signs in last 24 hours: Temp: [98 F (36.7 C)-98.3 F (36.8 C)] 98 F (36.7 C) Heart Rate: [66-93] 72 Resp: [14-16] 16 BP: (96-133)/(69-94) 121/80 There is no height or weight on file to calculate BMI. Vitals: 05/09/20 1459 05/09/20 1544 05/09/20 1559 05/09/20 1644 BP: 130/84 114/76 118/79 121/80 Pulse: 71 73 71 72 Resp: Temp: TempSrc: SpO2: RR=16 9.59 kg (21 lb 2.3 oz) There is no height or weight on file to calculate BMI. General Alert, cooperative, laboring Head: Normocephalic, without obvious abnormality, atraumatic Neck: Supple, symmetrical, trachea midline, no adenopathy; thyroid: no enlargement/tenderness/nodules Lungs: Clear to auscultation bilaterally, normal respiratory effort Cardiovascular: Regular rate and rhythm, no murmur, rub or gallop; Pulses normal and symmetric all extremities Abdomen: Soft, appropriately tender, S=D External genitalia Labia normal, no lesions, discharge, no rash Mons and Clitoris Normal , no rash or lesions Urethral meatus Normal size and location, no lesions or discharge, nontender Urethra No mass, discharge, nontender Bladder Non tender, no discharge Introitus Non tender, normal, no lesions, Bartholin's normal bilaterally Vagina No lesions, no discharge Cervix vertex c Anus & Perineum Normal tone, no lesions Extremities: Normal, atraumatic, no cyanosis, Edema: noted, equal Skin: Skin color, texture, turgor normal, no rashes or lesions Neurologic: DTR +2/4 Psych: Mood and affect appropriate OB Examiner - PW: Janay Laboratory and Additional Data Reviewed: Invalid input(s): CO2 Invalid input(s): LABALBU Results from last 7 days Lab Units 05/09/20 0830 WBC K/mcL 8.98 HGB g/dL 10.6* HCT % 32.6* PLT K/mcL 198 Invalid input(s): CO2, LABALBU Results from last 7 days Lab Units 05/09/20 0830 WBC K/mcL 8.98 HGB g/dL 10.6* HCT % 32.6* PLT K/mcL 198 ___ Admission on 05/09/2020 Component Date Value Ref Range Status ABORh 05/09/2020 O Positive Final Antibody Screen 05/09/2020 Negative Final Specimen Expires 05/09/2020 05/12/2020 23:59 EST Final WBC 05/09/2020 8.98 4.50 - 11.00 K/mcL Final RBC 05/09/2020 3.61* 4.00 - 5.20 M/mcL Final Hemoglobin 05/09/2020 10.6* 12.0 - 16.0 g/dL Final Hematocrit 05/09/2020 32.6* 36.0 - 46.0 % Final MCV 05/09/2020 90.3 80.0 - 100.0 fL Final MCH 05/09/2020 29.4 26.0 - 34.0 pg Final MCHC 05/09/2020 32.5 31.0 - 37.0 g/dL Final Platelets 05/09/2020 198 150 - 400 K/mcL Final RDW - CV 05/09/2020 13.2 11.6 - 14.8 % Final MPV 05/09/2020 10.1 9.4 - 12.4 fL Final Nucleated RBC 05/09/2020 0.0 % Final Nucleated RBC Abs 05/09/2020 0.00 0.00 - 0.00 K/mcL Final Syphilis Treponemal Ab 05/09/2020 Negative Negative Final SARS-CoV-2 05/09/2020 Not Detected Not Detected Final This test was performed under the FDA's Emergency Use Authorization (EUA). Testing was performed using the [employer] ID NOW COVID-19 assay on the ID NOW platform. This test has not been approved for use in asymptomatic patients and its performance in this patient population has not been evaluated. Negative results do not rule out the presence of SARS-CoV-2/COVID-19. Fact sheets for the EUA can be found at the following links: For Healthcare Providers: https://www.fda.gov/media/113949/download For Patients: https://www.fda.gov/media/451226/download O Positive NST reactive Assessment and Plan: Pt is a 29 y.o. at 37w0d Patient Active Problem List Diagnosis Rubella non-immune status, antepartum Choroid plexus cyst Multigravida in third trimester High risk multigravida, third trimester Indication for care in labor and delivery, antepartum 37 weeks gestation of Full-term premature rupture of membranes with onset of labor within 24 hours of rupture OB History Para Term AB Living 2 1 1 0 0 0 SAB TAB Ectopic Multiple Live Births 0 0 0 0 1 # Outcome Date GA Lbr Del/2nd Weight Sex Delivery Anes PTL Lv 2 Current 1 Term 03/06/12 40w0d 3.827 kg (8 lb 7 oz) M Vag-Spont EPI N DEC Comments: Healthy . baby passed at age 7 of Hemophagocytic Lymphohistiocytosis Anticipating vaginal delivery Akil Rossi MD 05/09/20 Labor is defined as uterine contractions resulting in cervical change (dilatation and/or effacement) every 3-5 minutes, not to exceed 5 contractions in 10 minutes, averaged over 30 minutes. documented in this encounter Quick Note - Krysten Glez RN - 05/11/2020 11:30 AM EDTQuick Note - Marry Pickett RN - 05/11/2020 11:05 AM EDTQuherman Note - Yareli Sellers RN - 05/10/2020 11:39 AM EDT Miscellaneous Notes (unrecog nized section and content) AVS provided and explained. Discharge teaching reinforced. Patient verbalized understanding. Denies questions. Discharged home in stable condition. Did talk to mother about her MMR being non-immune and if she would like to have her MMR before she leaves-she stated that she would talk to her OB and maybe take this later. Attended class. For class content. refer to the [facility] discharge education book A Guide to Caring for Yourself and Your Baby-2019 Edition for all home care instructions. Denies questions and verbalizes understanding Vaginal Delivery Note Diagnosis: Principal Problem: Full-term premature rupture of membranes with onset of labor within 24 hours of rupture Active Problems: Rubella non-immune status, antepartum Multigravida in third trimester High risk multigravida, third trimester Indication for care in labor and delivery, antepartum 37 weeks gestation of Normal vaginal delivery Single live Brown, Baby Boy [place] [[id number]] Delivery Anesthesia Method: Epidural Operative Delivery Forceps attempted?: No Vacuum extractor attempted?: No Shoulder Dystocia Shoulder dystocia present: No [place] Presentation Presentation: Vertex Position: Right _: Occiput _: Anterior Information date/time: 05/09/201701 Gender: Male Delivery type: Vaginal, Spontaneous Delivery location: OB Unit Initial disposition: Routine NB Care Details: Delivery Providers Delivering clinician: Akil Rossi MD Other personnel: Provider Role Covering Attending Resident Admission Nurse Valentine Tam RN Delivery Nurse Gypsy Sweeney RN Registered Nurse Delivery Assist Nurse Practitioner Cord Vessels: 3 vessels Complications: Nuchal Nuchal intervention: delivered through Nuchal cord description: loose nuchal cord Number of loops: 1 Delayed cord clamping?: No Cord blood obtained?: Lab Cord segment obtained?: Yes Gases sent?: Yes Stem cell collection (by Provider)?: No Placenta Date/time: 05/09/20201706 Removal: Spontaneous Appearance: Intact Disposition: Discarded Apgars Living status: Living Scoring Gamino: 0 1 2 Skin color Blue or pale Acrocyanotic Completely pink Heart rate Absent <100 bpm >100 bpm Reflex irritability No response Grimace Cry or active withdrawal Muscle tone Limp Some flexion Active motion Respiratory effort Absent Weak cry; hypoventilation Good, crying Skin color: Heart rate: Reflex irritability: Muscle tone: Respiratory effort: Total: 1 Minute: 0 2 2 2 2 8 5 Minute: 1 2 2 2 2 9 10 Minute: 15 Minute: 20 Minute: [place] Measurements Weight: Lacerations Episiotomy: None Perineal lacerations: 2nd Other Lacerations: vaginal laceration Repaired: Yes Vaginal delivery est. blood loss (mL): 200 Repair suture: Chromic Number of repair packets: 1 Other Procedures Procedures: None Vaginal Delivery Note Uncomplicated vaginal delivery of the head and shoulders, SAMSON, in McRobert's position, noted nuchal cord reduction loose. .Perineum was supported as the head delivered On the perineum, body is held with the head downward, the baby's mouth and throat suctioned to clear fluids as best as possible, spontaneous cry, as delivered onto mother's abdomen for continued care. Placenta delivered intact, overall appearance: normal Cord insertion is normal Membranes: No staining Uterus: able to be explored, no retained products of conception and appears to have a normal cavity. Noted 2 degree laceration: posterior midline closed with chromic 2-o for deep tissue, Hemostatic Placenta is intact: ordered to be sent to pathology. EBL 200ml Anticipated follow up is with Dr Flo MD /SYLVESTER Rossi MD 05/09/20 medicare [id number] global ob documented in this encounter Toni Jacobson is an established in our office. She spoke to the office regarding her positive test. Toni Jacobson stated her LMP was October 12. She was instructed to get her blood work drawn before her next visit. This blood work includes a HIV test that is recommended for all moms. Toni Jacobson does need a prescription for prenantal vitamins. Pharmacy: [facility] Allergies No known drug allergies She is scheduled for an OB scan in our office on 12/25/20 The patient is having any current problems. (please state problem). Sore- pretty normal otherwise Previous ? yes O Positive Oldest child at 9 documented in this encounter Addended by: AKIL ROSSI on: 12/14/2019 01:56 PM Modules accepted: Level of Service documented in this encounter Ellen Weinstein RN - 11/18/2020 10:03 AM Morales Sarabia DO - 11/18/2020 9:23 AM Ellen Fuentes RN - 03/01/2021 5:15 PM Dino Garza MD - 03/01/2021 4:55 PM EDT ED Notes (unrecognized secti on and content) Discharge instructions given to and explained to pt. Pt verbalized understanding and denies needs and questions at this time. Emergency Department Report [facility] EMERGENCY MEDICINE Service Date:.11/18/20 PCP: No primary care provider on file. Chief Complaint: Chief Complaint Patient presents with Dental Pain pt c/o toothache for 2 days HPI Taccarrie Joan Brown is a 30 y.o. female presents to the ED today due to dental pain for last 2 days. She said several months ago she broke off her back tooth #31. She started having pain and has not seen a dentist for this. She is taking Tylenol with minimal relief. She has no swelling. No joint swelling. No neck swelling. No difficulty breathing or eating or swallowing Review of Systems: Review of Systems Constitutional: Negative for chills and fever. HENT: Positive for dental problem. Negative for congestion, sore throat and trouble swallowing. Eyes: Negative for discharge and visual disturbance. Respiratory: Negative for cough and shortness of breath. Cardiovascular: Negative for chest pain and leg swelling. Gastrointestinal: Negative for abdominal pain and nausea. Genitourinary: Negative for difficulty urinating and urgency. Musculoskeletal: Negative for back pain. Skin: Negative for rash. Neurological: Negative for speech difficulty and weakness. All other systems reviewed and are negative. Past Medical History: No past medical history on file. Past Surgical History: No past surgical history on file. Allergies: No Known Allergies Medications: Patient's Medications New Prescriptions No medications on file Previous Medications CROMOLYN 4 % SOLUTION Place 2 drops in both eyes 4 times daily. CYCLOBENZAPRINE 10 MG TAB TABLET Take 1 tablet by mouth 3 times daily as needed for Muscle spasms. Modified Medications No medications on file Discontinued Medications No medications on file Family History: Family History Problem Relation Age of Onset Cancer- Other Maternal Aunt Colorectal Cancer Maternal Grandmother Social History: Social History Socioeconomic History Marital status: Single Spouse name: Not on file Number of children: Not on file Years of education: Not on file Highest education level: Not on file Occupational History Not on file Social Needs Financial resource strain: Not on file Food insecurity Worry: Not on file Inability: Not on file Transportation needs Medical: Not on file Non-medical: Not on file Tobacco Use Smoking status: Former Smoker Smokeless tobacco: Former User Tobacco comment: also vapes Substance and Sexual Activity Alcohol use: Not Currently Frequency: 2-3 times a week Comment: occasional Drug use: Not Currently Sexual activity: Never control/protection: I.U.D. Lifestyle Physical activity Days per week: Not on file Minutes per session: Not on file Stress: Not on file Relationships Social connections Talks on phone: Not on file Gets together: Not on file Attends mormonism service: Not on file Active member of club or organization: Not on file Attends meetings of clubs or organizations: Not on file Relationship status: Not on file Intimate partner violence Fear of current or ex partner: Not on file Emotionally abused: Not on file Physically abused: Not on file Forced sexual activity: Not on file Other Topics Concern Not on file Social History Narrative Not on file Physical Exam: Physical Exam Vitals signs and nursing note reviewed. Constitutional: General: She is not in acute distress. Appearance: She is well-developed. She is not toxic-appearing. HENT: Head: Normocephalic and atraumatic. Right Ear: Tympanic membrane and ear canal normal. Left Ear: Tympanic membrane and ear canal normal. Nose: Nose normal. Mouth/Throat: Mouth: Mucous membranes are moist. Dentition: Abnormal dentition. Dental tenderness and dental caries present. No dental abscesses. Pharynx: Oropharynx is clear. Comments: Dental caries noted without signs of abscess. Swallowing without difficulty, midline uvula, no trismus or swelling/edema under tongue. No breathing difficulty, no neck swelling. Eyes: Extraocular Movements: Extraocular movements intact. Conjunctiva/sclera: Conjunctivae normal. Pupils: Pupils are equal, round, and reactive to light. Neck: Musculoskeletal: Normal range of motion and neck supple. Cardiovascular: Rate and Rhythm: Normal rate and regular rhythm. Pulses: Normal pulses. Heart sounds: Normal heart sounds. Pulmonary: Effort: Pulmonary effort is normal. Breath sounds: Normal breath sounds. Abdominal: General: Bowel sounds are normal. Palpations: Abdomen is soft. Tenderness: There is no abdominal tenderness. There is no guarding. Musculoskeletal: Normal range of motion. Skin: General: Skin is warm and dry. Capillary Refill: Capillary refill takes less than 2 seconds. Findings: No erythema or rash. Neurological: General: No focal deficit present. Mental Status: She is alert and oriented to person, place, and time. Cranial Nerves: No cranial nerve deficit. Deep Tendon Reflexes: Reflexes normal. Psychiatric: Behavior: Behavior normal. Thought Content: Thought content normal. Vital Signs During ED Visit Patient Vitals for the past 24 hrs: BP Temp Temp src Pulse Resp SpO2 Height 11/18/20 0927 1.6 m (5' 3) 11/18/20 0926 116/71 98.9 F (37.2 C) Oral 100 18 98 % Orders/Results: Orders Placed This Encounter AMB REFERRAL TO FAMILY PRACTICE DISCONTD: naproxen (NAPROSYN) tablet 500 mg DISCONTD: naproxen 500 MG tablet Radiographic Imaging No orders to display Procedures: Procedures Moderate Sedation Procedure: No Medications Ordered/Given During ED Visit Medications - No data to display Medical Decision Making Dental caries causing pain. No evidence of abscess. We'll refer her to dental clinic for treatment. No intervention here. Clinical Impression: 1. Pain due to dental caries Acute No follow-ups on file. New Prescriptions No medications on file Discontinued Medications No medications on file An After Visit Summary was printed and given to the patient with above information. Morales Banerjee DO 11/18/20 0953 documented in this encounter Patient given discharge papers. Patient voiced understanding of instructions regarding prescription and to complete all antibiotics, increase fluid intake and eat prior to taking. Patient advised to follow up with PCP or [facility]. Patient was ambulatory at discharge with steady gait. Emergency Department Report [facility] EMERGENCY MEDICINE Service Date:.03/01/21 PCP: No primary care provider on file. Chief Complaint: Chief Complaint Patient presents with Urinary Urgency Patient c/o painful urination and urgency that started about 2 hrs ago HPI Toni Jacobson is a 30 y.o. female presents to the ED today due to Dysuria. The patient's had painful urination and urgencystarted 2 hours prior to arrival. She's not had any other urinary tract infections during her . She is currently 27 weeks . She has no leakage of fluid no vaginal bleeding and no discharge. She denies flank pain or vomiting or fever. She has mild nausea intermittently. Review of Systems: Review of Systems Constitutional: Negative for activity change, appetite change, fatigue and fever. HENT: Negative for ear pain, hearing loss, rhinorrhea, sneezing and trouble swallowing. Eyes: Negative for photophobia, pain, redness and visual disturbance. Respiratory: Negative for chest tightness, shortness of breath and wheezing. Cardiovascular: Negative for chest pain, palpitations and leg swelling. Gastrointestinal: Negative for abdominal pain, anal bleeding, diarrhea and nausea. Endocrine: Negative for polydipsia, polyphagia and polyuria. Genitourinary: Positive for dysuria, frequency and urgency. Negative for difficulty urinating, flank pain and hematuria. Musculoskeletal: Negative for back pain, joint swelling, neck pain and neck stiffness. Skin: Negative for color change, pallor and rash. Allergic/Immunologic: Negative for environmental allergies and immunocompromised state. Neurological: Negative for dizziness, seizures, syncope, weakness, numbness and headaches. Hematological: Negative for adenopathy. Does not bruise/bleed easily. Psychiatric/Behavioral: Negative for behavioral problems, confusion, dysphoric mood, hallucinations and self-injury. The patient is not nervous/anxious. Past Medical History: No past medical history on file. Past Surgical History: No past surgical history on file. Allergies: No Known Allergies Medications: Patient's Medications New Prescriptions CEPHALEXIN 500 MG CAPSULE Take 1 capsule by mouth every 12 hours for 6 days. Previous Medications CROMOLYN 4 % SOLUTION Place 2 drops in both eyes 4 times daily. CYCLOBENZAPRINE 10 MG TAB TABLET Take 1 tablet by mouth 3 times daily as needed for Muscle spasms. Modified Medications No medications on file Discontinued Medications No medications on file Family History: Family History Problem Relation Age of Onset Cancer- Other Maternal Aunt Colorectal Cancer Maternal Grandmother Social History: Social History Socioeconomic History Marital status: Single Spouse name: Not on file Number of children: Not on file Years of education: Not on file Highest education level: Not on file Occupational History Not on file Tobacco Use Smoking status: Former Smoker Smokeless tobacco: Former User Tobacco comment: also vapes Substance and Sexual Activity Alcohol use: Not Currently Comment: occasional Drug use: Not Currently Sexual activity: Never control/protection: I.U.D. Other Topics Concern Not on file Social History Narrative Not on file Social Determinants of Health Financial Resource Strain: Difficulty of Paying Living Expenses: Not on file Food Insecurity: Worried About Running Out of Food in the Last Year: Not on file Ran Out of Food in the Last Year: Not on file Transportation Needs: Lack of Transportation (Medical): Not on file Lack of Transportation (Non-Medical): Not on file Physical Activity: Days of Exercise per Week: Not on file Minutes of Exercise per Session: Not on file Stress: Feeling of Stress : Not on file Social Connections: Frequency of Communication with Friends and Family: Not on file Frequency of Social Gatherings with Friends and Family: Not on file Attends Mandaen Services: Not on file Active Member of Clubs or Organizations: Not on file Attends Club or Organization Meetings: Not on file Marital Status: Not on file Intimate Partner Violence: Fear of Current or Ex-Partner: Not on file Emotionally Abused: Not on file Physically Abused: Not on file Sexually Abused: Not on file Physical Exam: Physical Exam Vitals and nursing note reviewed. Constitutional: General: She is not in acute distress. Appearance: She is well-developed. She is not diaphoretic. HENT: Head: Normocephalic and atraumatic. Nose: Nose normal. Mouth/Throat: Pharynx: No oropharyngeal exudate. Eyes: General: No scleral icterus. Right eye: No discharge. Left eye: No discharge. Conjunctiva/sclera: Conjunctivae normal. Pupils: Pupils are equal, round, and reactive to light. Neck: Thyroid: No thyromegaly. Vascular: No JVD. Cardiovascular: Rate and Rhythm: Normal rate and regular rhythm. Heart sounds: Normal heart sounds. No murmur. No friction rub. No gallop. Pulmonary: Effort: Pulmonary effort is normal. No respiratory distress. Breath sounds: Normal breath sounds. No wheezing or rales. Chest: Chest wall: No tenderness. Abdominal: General: Bowel sounds are normal. There is no distension. Palpations: Abdomen is soft. There is no mass. Tenderness: There is no abdominal tenderness. There is no guarding or rebound. Hernia: No hernia is present. Comments: Gravid uterus nontender Musculoskeletal: General: No tenderness or deformity. Normal range of motion. Cervical back: Normal range of motion and neck supple. Skin: General: Skin is warm and dry. Coloration: Skin is not pale. Findings: No erythema or rash. Neurological: Mental Status: She is alert and oriented to person, place, and time. Cranial Nerves: No cranial nerve deficit. Motor: No abnormal muscle tone. Coordination: Coordination normal. Psychiatric: Behavior: Behavior normal. Thought Content: Thought content normal. Judgment: Judgment normal. Vital Signs During ED Visit Patient Vitals for the past 24 hrs: BP Temp Temp src Pulse Resp SpO2 Height 03/01/21 1648 1.6 m (5' 3) 03/01/21 1646 116/65 98.3 F (36.8 C) Oral 93 16 98 % Orders/Results: Orders Placed This Encounter cephALEXin 500 MG capsule URINALYSIS, MACRO Results for orders placed or performed during the hospital encounter of 06/11/19 URINE CULTURE Specimen: URINE - CLEAN CATCH Result Value Ref Range SPECIMEN DESCRIPTION URINE CLEAN CATCH UA Dipstick LEUKOCYTE POSITIVE RESULT-CULT NO GROWTH 2 DAYS REPORT STATUS 06/13/2019 CHEM 7 (LYTES,BUN,CREA,GLUC) Result Value Ref Range GLUCOSE 82 70 - 100 MG/DL BUN 10 7.0 - 20.0 MG/DL CREATININE SERUM 0.85 0.7 - 1.2 MG/DL SODIUM 139 137 - 145 MMOL/L POTASSIUM 3.6 3.5 - 5.1 MMOL/L CHLORIDE 107 98 - 107 MMOL/L CARBON DIOXIDE (CO2) 24 22 - 30 MMOL/L ESTIMATED GFR, NON AMER >60 ml/min/1.73sq.m ESTIMATED GFR, >60 ml/min/1.73sq.m GFR COMMENT Average GFR for 20-29 years old = 116. HEPATIC FUNCTION PANEL Result Value Ref Range ALBUMIN 3.7 2.9 - 5.3 G/DL BILIRUBIN, TOTAL 0.3 0.2 - 1.3 MG/DL ALKALINE PHOSPHATASE 49 38 - 126 IU/L AST 20 14 - 36 IU/L BILIRUBIN, DIRECT 0.0 0 - 0.4 MG/DL PROTEIN, TOTAL 7.6 6.3 - 8.2 GM/DL ALT 24 9 - 52 IU/L LIPASE Result Value Ref Range LIPASE 58 23 - 300 U/L CBC, EDIF, PLATELET Result Value Ref Range WBC (WHITE BLOOD COUNT) 7.1 3.6 - 11.0 /cmm RBC 3.63 (L) 4.0 - 5.4 /cmm HEMOGLOBIN (HGB) 11.5 (L) 12.0 - 16.0 G/DL HEMATOCRIT (HCT) 32.9 (L) 36.0 - 48.0 % MEAN CELL VOLUME 90.6 80.0 - 100.0 FL Mean Cell HGB 31.6 26.0 - 35.0 PG MEAN CELL HGB CONCENTRATION 34.9 27.0 - 37.0 G/DL RBC DISTRIBUTION 13.1 11.5 - 14.5 % PLATELET COUNT 228 130 - 400 /cmm MEAN PLATELET VOLUME 7.4 7.4 - 11.0 FL DIFFERENTIAL TYPE AUTO DIFF % NEUTROPHILS 53.5 37.0 - 75.0 % LYMPHOCYTE 31.0 20.0 - 55.0 % MONOCYTE % 14.2 (H) 0.0 - 10.0 % EOSINOPHIL % 0.9 0.0 - 11.0 % BASOPHIL % 0.4 0.0 - 2.0 % Absolute Neutrophil Count 3.8 1 - 7 x10 LYMPHOCYTES, ABSOLUTE 2.20 X10 MONOCYTES, ABSOLUTE 1.0 X10 ABSOLUTE EOSINOPHIL COUNT 0.10 X10 ABSOLUTE BASOPHIL COUNT 0.0 X10 URINALYSIS, MACRO Result Value Ref Range COLOR, URINE YELLOW YELLOW APPEARANCE, URINE CLEAR CLEAR SPECIFIC GRAVITY, URINE 1.025 1.010 - 1.025 PH URINE 6.0 5.0 - 7.0 PROTEIN, URINE NEGATIVE NEGATIVE mg/dl GLUCOSE, URINE NEGATIVE NEGATIVE mg/dl KETONES, URINE TRACE (A) NEGATIVE mg/dl BILIRUBIN, URINE NEGATIVE NEGATIVE BLOOD, URINE DIPSTICK NEGATIVE NEGATIVE NITRITES, URINE NEGATIVE NEGATIVE UROBILINOGEN, URINE 0.2 0.2 - 1.0 mg/dl LEUKOCYTE ESTERASE, URINE TRACE (A) NEGATIVE HCG QUALITATIVE, URINE Result Value Ref Range HCG, QUALITATIVE, URINE NEGATIVE URINE MICROSCOPIC Result Value Ref Range WBC, URINE 1 TO 5 NEGATIVE /HPF RBC, URINE NEGATIVE NEGATIVE /HPF Epithelial Cells UA 10 TO 20 /HPF Mucus NEGATIVE NEGATIVE BACTERIA, URINE TRACE (A) NEGATIVE CRYSTALS, URINE NONE NONE CASTS, URINE NONE NONE /LPF COMMENT, URINE PHYSICIAN REQUESTED CULTURE Radiographic Imaging No orders to display Moderate Sedation Procedure: No Procedures: Procedures ED Summary/MDM See nursing notes for heart tones.urine shows small leukocytes. Culture will be sent. The patient's can be empirically treated with Keflex. She is discharged to follow-up with her outpatient OB. Clinical Impression: 1. Dysuria during in second trimester No follow-ups on file. New Prescriptions CEPHALEXIN 500 MG CAPSULE Take 1 capsule by mouth every 12 hours for 6 days. Discontinued Medications No medications on file An After Visit Summary was printed and given to the patient with above information. . . Dino Shen MD 03/01/211710 Dr Shen at bedside documented in this encounter Scheduled Active and Recently Administ ered Medications (unrecognized section and content) Medication Order 04/23/2021 04/24/2021 04/25/2021 sodium chloride (PF) (NS) flush 5 mL(Linked Group 1) 5 mL, Intravenous, Every 8 hours scheduled, First dose on Fri04/25/21 at 0600, Labor & Delivery, Saline lock 0600 (Due) terbutaline (BRETHINE) injection 0.25 mg (COMPLETED) 0.25 mg, Subcutaneous, Once, On Fri04/25/21 at 0345, For 1 dose 0305 (Given - Provid er: Amie Louise RN) Continuous Medication Order 04/23/2021 04/24/2021 04/25/2021 lactated Ringers infusion 0-999 mL/hr, Intravenous, Continuous, Starting on Fri04/25/21 at 0345, L&D Pre-Delivery, Run @ 125 mL/hr or as follows: For stress, uterine tachysystole, non-reassuring status during induction or cervical-ripening, increase maintenance IV to 999 mL/hr. Upon resolution of tachysystole, or return to category 2 or above monitor strip, resume IV at previous rate. 0338 (New Bag - Prov ider: Amie Louise RN)0418 (Stopped - Provider: Amie Louise RN) PRN Medication Order 04/23/2021 04/24/2021 04/25/2021 sodium chloride (PF) (NS) flush 5 mL(Linked Group 1) 5 mL, Intravenous, As needed, line care, Starting on Fri04/25/21 at 0247, Labor & Delivery sodium chloride 0.9% (NS)(Linked Group 1) 0-150 mL/hr, Intravenous, As needed, To flush line after IV infusions when no maintenance IV ordered or a compatibility issue with maintenance IV, Starting on Fri04/25/21 at 0247, Labor & Delivery, Run as Primary IV. NOT intended for KVO. Linked Groups Order Group 1: Saline lock IV (CANCELED) Routine, Continuous, Starting on Fri04/25/21 at 0248, Until Specified
Labor & Delivery And sodium chloride (PF) (NS) flush 5 mLJump to med 5 mL, Intravenous, As needed, line care, Starting on Fri04/25/21 at 0247, Labor & Delivery And sodium chloride (PF) (NS) flush 5 mLJump to med 5 mL, Intravenous, Every 8 hours scheduled, First dose on Fri04/25/21 at 0600, Labor & Delivery
Saline lock
And sodium chloride 0.9% (NS)Jump to med 0-150 mL/hr, Intravenous, As needed, To flush line after IV infusions when no maintenance IV ordered or a compatibility issue with maintenance IV, Starting on Fri04/25/21 at 0247, Labor & Delivery
Run as Primary IV. NOT intended for KVO.
Scheduled Medication Order 01/17/2022 01/18/2022 01/19/2022 nitrofurantoin (macrocrystal-monohydrate) (MACROBID) capsule 100 mg (COMPLETED) 100 mg, Oral, ONCE, 1 dose, On 01/19/22 at 1900 1827 (Given - Provid er: Madison Rhoades RN) Scheduled Medication Order 06/07/2022 06/08/2022 06/09/2022 bacitracin ointment 1 Application (COMPLETED) 1 Application, Topical, ONCE, 1 dose, On 06/09/22 at 1100, Apply to wound with dressing 1033 (Given - Provid er: Geovanna Tobin RN) Scheduled Medication Order 12/31/2023 01/01/2024 01/02/2024 calcium gluconate 2 g in sodium chloride 0.9 % (NS) 100 mL IVPB (COMPLETED) 2 g, Intravenous, at 100 mL/hr, Once, On Fanny 01/01/24 at 0300, For 1 dose, PACU (only) 221 (New Bag - Provider: Keli Cole, RN)225 (Continue to Inpatient Floor - Provider: Keli Cole, NANETTE)324 (Stopped - Provider: Mickie Martinez, NANETTE) calcium-vitamin D (OS-IRASEMA +D) 500 mg-5 mcg (200 unit) per tablet 1 tablet 1 tablet, Oral, 4 times daily with meals, First dose (after last modification) on Fri12/31/23 at 2300, Give with Food 2219 (Not Given - Provider: Mickie Martinez RN - Reason: Other - Comment: nausea/vomiting) 0007 (JAN Hold - Provider: Transfer Provider, Automatic - Reason: Patient not available)023 (JAN Unhold - Provider: Transfer Provider, Automatic)0916 (Given - Provider: Henrry Tan, RN)1319 (Given - Provider: Henrry Tan, RN)1615 (Given - Provider: Carrol Coon)2007 (Given - Provider: Kayla Hameed, NANETTE) 0920 (Given - Provider: Ju Multani, RN)1249 (Given - Provider: Ju Multani, RN) diphenhydrAMINE (BENADRYL) injection 50 mg (COMPLETED) 50 mg, Intravenous, Once, On Fri12/31/23 at 2315, For 1 dose, Nausea/vomiting For IV administration, give at a rate less than or equal to 25 mg/min 2231 (Given - Provider: Mickie Martinez RN) HYDROmorphone (DILAUDID) injection 2 mg (COMPLETED) 2 mg, Intravenous, Once, On Fri12/31/23 at 1845, For 1 dose 1805 (Given - Provider: Carrol Coon) levothyroxine (SYNTHROID, LEVOTHROID) tablet 100 mcg 100 mcg, Oral, Daily, First dose on Fri12/31/23 at 1400, For patients on continuous tube feed: Hold TF from 1 hr before until 1 hr after each dose. TF rate may need adjustment to meet caloric needs. 1525 (Given - Provider: Shannan Sue RN) 0007 (JAN Hold - Provider: Transfer Provider, Automatic - Reason: Patient not available)023 (JAN Unhold - Provider: Transfer Provider, Automatic)0600 (Given - Provider: Mickie Martinez RN) 0336 (Given - Provider: Kayla Hameed, NANETTE)0600 (Canceled Entry - Provider: Kayla Hameed RN) Continuous Medication Order 12/31/2023 01/01/2024 01/02/2024 lactated Ringers infusion 100 mL/hr, Intravenous, Continuous, Starting on Fri12/31/23 at 0730 0721 (New Bag - Provider: Fiordaliza Song RN)1225 (Restarted - Provider: Shannan Sue NANETTE)1714 (New Bag - Provider: Carrol Coon) 0007 (JAN Hold - Provider: Transfer Provider, Automatic - Reason: Patient not available)0236 (JAN Unhold - Provider: Transfer Provider, Automatic)0524 (Canceled Entry - Provider: Mickie Martinez, RN)1012 (New Bag - Provider: Henrry Tan RN)2004 (New Bag - Provider: Kayla Hameed, RN) 0338 (New Bag - Provider: Kayla Hameed, RN)1010 (Stopped - Provider: Ju Multani, RN) lactated Ringers infusion (CANCELED) 100 mL/hr, Intravenous, Continuous, Starting on Fri12/31/23 at 1115, PACU (only) 1115 (Canceled Entry - Provider: Shannan Sue RN)1156 (Continue to Inpatient Floor - Provider: Renee Patterson RN)1225 (Stopped - Provider: Shannan Sue RN) 0007 (New Bag - Provider: Henrry Soto MD)0030 (Stopped - Provider: Henrry Soto MD)0031 (New Bag - Provider: Henrry Soto MD)0108 (Stopped - Provider: Henrry Soto MD)0109 (New Bag - Provider: Henrry Soto MD)0259 (Stopped - Provider: Ju Multani, RN) lactated Ringers infusion (CANCELED) 100 mL/hr, Intravenous, Continuous, Starting on Fanny 01/01/24 at 0300, PACU (only) 0300 (New Bag - Provider: Mickie Martinez, NANETTE)1400 (Stopped - Provider: Ju Multani, RN) PRN Medication Order 12/31/2023 01/01/2024 01/02/2024 acetaminophen (TYLENOL) tablet 650 mg 650 mg, Oral, Every 6 hours PRN, mild pain, Starting on Fri12/31/23 at 1024 1712 (Given - Provider: Carrol Coon) 0007 (JAN Hold - Provider: Transfer Provider, Automatic - Reason: Patient not available)0236 (JAN Unhold - Provider: Transfer Provider, Automatic) HYDROmorphone (DILAUDID) injection 0.25 mg (CANCELED) 0.25 mg, Intravenous, Every 5 min PRN, Pain, Starting on Fri12/31/23 at 1024, For 6 doses, PACU (only), Give if fentanyl not effective or not ordered. Do not give more than 1.5 mg total. 1116 (Given - Provider: Renee Patterson, NANETTE)1126 (Given - Provider: Renee Patterson RN) ibuprofen (ADVIL,MOTRIN) tablet 600 mg 600 mg, Oral, Every 6 hours PRN, headaches, mild pain, Starting on Fri12/31/23 at 1214, [] Give with food. [] Use ketorolac (TORADOL) IV first for mild pain if ordered/active. [] Do not give within 6 hours of ketorolac (TORADOL). Do Not Crush or Chew if administering orally due to bitter taste. May be crushed if given via tube. 1525 (Given - Provider: Shannan Sue RN) 0007 (MAR Hold - Provider: Transfer Provider, Automatic - Reason: Patient not available)0236 (MAR Unhold - Provider: Transfer Provider, Automatic) lidocaine-EPINEPHrine 1 %-1:200,000 injection (CANCELED) As needed, Starting on Fri12/31/23 at 0830, Intra-Procedure 0805 (Given - Provider: Hector Cerna MD - Comment: neck) naloxone (NARCAN) injection 0.1 mg(Linked Group 1) 0.1 mg, Intravenous, As needed, opioid reversal, For respiratory rate less than or equal to 8 per minute., Starting on Fri12/31/23 at 1214, Mix nalOXone (NARCAN) 0.4 mg (1mL) with 9 mL of Normal Saline to total 10 mL. Administer 0.1 mg (2.5mL) IV Push every 2 minutes until respiratory rate is 10 or greater. 0007 (MAR Hold - Provider: Transfer Provider, Automatic - Reason: Patient not available)0236 (MAR Unhold - Provider: Transfer Provider, Automatic) naloxone (NARCAN) injection 0.4 mg(Linked Group 1) 0.4 mg, Intravenous, As needed, opioid reversal, patient is pulseless, breathless, and unresponsive, Starting on Fri12/31/23 at 1214, Call a code first, then administer naloxone dose undiluted IV Push over 30 seconds. 0007 (JAN Hold - Provider: Transfer Provider, Automatic - Reason: Patient not available)0236 (JAN Unhold - Provider: Transfer Provider, Automatic) ondansetron (ZOFRAN) injection 4 mg 4 mg, Intravenous, Every 6 hours PRN, nausea, vomiting, Starting on Fri12/31/23 at 1243 1253 (Given - Provider: Shannan Sue, NANETTE)2000 (Given - Provider: Mickie Martinez, NANETTE) 000 (JAN Hold - Provider: Transfer Provider, Automatic - Reason: Patient not available)0236 (JAN Unhold - Provider: Transfer Provider, Automatic) oxyCODONE-acetaminophen (PERCOCET) 5-325 mg per tablet 1-2 tablet 1-2 tablet, Oral, Every 4 hours PRN, moderate to severe pain, Starting on Fri12/31/23 at 1752 2136 (Given - Provider: Mickie Martinez RN) 000 ([facility] Hold - Provider: Transfer Provider, Automatic - Reason: Patient not available)0236 ([facility] Unhold - Provider: Transfer Provider, Automatic)0522 (Given - Provider: Mickie Martinez RN)0935 (Given - Provider: Henrry Tan, RN)1614 (Given - Provider: Carrol Coon)2008 (Given - Provider: Kayla Hameed, NANETTE) 0040 (Given - Provider: Kayla Hameed, NANETTE)0520 (Given - Provider: Kayla Hameed, NANETTE)0923 (Given - Provider: Ju Multani, RN)1443 (Given - Provider: Ju Multani, RN) sodium chloride (NS) 0.9 % irrigation solution (CANCELED) As needed, Starting on Fri12/31/23 at 0831, Intra-Procedure 0831 (Given - Provider: Hector Cerna MD - Comment: neck) sodium chloride (NS) 0.9 % irrigation solution (CANCELED) As needed, Starting on Fri01/01/24 at 0124, Intra-Procedure 0124 (Given - Provider: Hector Cerna MD) Linked Groups Order Group 1: naloxone (NARCAN) injection 0.1 mgJump to med 0.1 mg, Intravenous, As needed, opioid reversal, For respiratory rate less than or equal to 8 per minute., Starting on Fri12/31/23 at 1214
Mix nalOXone (NARCAN) 0.4 mg (1mL) with 9 mL of Normal Saline to total 10 mL. Administer 0.1 mg (2.5mL) IV Push every 2 minutes until respiratory rate is 10 or greater.
And Notify physician (CANCELED) STAT, Until discontinued, Starting on Fri12/31/23 at 1215, Until Specified
Respiratory rate less than: 8
For respiratory rate less than or equal to 8, notify physician and/or appropriate staff for additional orders. And naloxone (NARCAN) injection 0.4 mgJump to med 0.4 mg, Intravenous, As needed, opioid reversal, patient is pulseless, breathless, and unresponsive, Starting on Fri12/31/23 at 1214
Call a code first, then administer naloxone dose undiluted IV Push over 30 seconds.
Care Teams (unrecognized sec tion and content) Protection Consultant Relationship Specialty Start Date End Date Charles Eric, DO [address] [place] [id number] PCP - General Family Medicine 02/18/22 Protection Consultant Relationship Specialty Start Date End Date Charles Eric, DO [address] [place] [id number] PCP - General Family Medicine 02/18/22 Protection Consultant Relationship Specialty Start Date End Date Charles Eric, DO [address] [place] [address] PCP - General Family Medicine 02/18/22 Protection Consultant Relationship Specialty Start Date End Date Charles Eric DO [address] [place] [address] PCP - General Family Medicine 06/09/22 Protection Consultant Relationship Specialty Start Date End Date Charles Eric, [address] [place] [address] PCP - General Family Medicine 02/18/22 Protection Consultant Relationship Specialty Start Date End Date Charles Eric DO [address] [place] [address] PCP - General Family Medicine 02/18/22 Protection Consultant Relationship Specialty Start Date End Date Charles Eric DO [address] [place] [address] PCP - General Family Medicine 02/18/22 Protection Consultant Relationship Specialty Start Date End Date Charles Eric DO [address] [place] [address] PCP - General Family Medicine 02/18/22 Protection Consultant Relationship Specialty Start Date End Date Charles Eric DO [address] [place] [address] PCP - General Family Medicine 02/18/22 Protection Consultant Relationship Specialty Start Date End Date Charles Eric DO [address] [place] [address] PCP - General Family Medicine 02/18/22 Protection Consultant Relationship Specialty Start Date End Date Charles Eric DO [address] [place] [address] PCP - General Family Medicine 02/18/22 Protection Consultant Relationship Specialty Start Date End Date Charles Eric DO [address] [place] [address] PCP - General Family Medicine 02/18/22 Protection Consultant Relationship Specialty Start Date End Date Charles Eric DO [address] [place] [address] PCP - General Family Medicine 02/18/22 Protection Consultant Relationship Specialty Start Date End Date Charles Eric DO [address] [place] [address] PCP - General Family Medicine 02/18/22 Protection Consultant Relationship Specialty Start Date End Date Generic Provider, No Assigned [facility] [address] [place] [address] PCP - General Family Medicine 09/19/23 Protection Consultant Relationship Specialty Start Date End Date Charles Eric DO [address] [place] [address] PCP - General Family Medicine 02/18/22 Protection Consultant Relationship Specialty Start Date End Date Generic Provider, No [place] [address] PCP - General Jack Spinner 04/27/24 Protection Consultant Relationship Specialty Start Date End Date No, Physician [facility] PCP - General 01/07/25 Team Status: Active Member Role Status Dates Dr. Radha Morgan MD Primary Care Provider Active Team Status: Inactive Member Role Status Dates No Primary Care Physician Primary Care Provider Active Start: January 13, 2025 End: January 13, 2025 No Primary Care Physician Referring Provider Active Start: January 13, 2025 End: January 13, 2025 Dr. Radha Morgan MD Attending Provider Active Start: January 13, 2025 End: January 13, 2025 Team Status: Inactive Member Role Status Dates Dr. Radha Morgan MD Primary Care Provider Active Start: January 13, 2025 End: January 13, 2025 Dr. Radha Morgan MD Attending Provider Active Start: January 13, 2025 End: January 13, 2025 Dr. Radha Morgan MD Referring Provider Active Start: January 13, 2025 End: January 13, 2025 Team Status: Inactive Member Role Status Dates Dr. Radha Morgan MD Primary Care Provider Active Start: February 21, 2025 End: February 21, 2025 Dr. Radha Morgan MD Referring Provider Active Start: February 21, 2025 End: February 21, 2025 Waqas Duran PA, PA Attending Provider Active Start: February 21, 2025 End: February 21, 2025 Team Status: Inactive Member Role Status Dates Dr. Radha Morgan MD Primary Care Provider Active Start: May 04, 2025 End: May 04, 2025 Dr. Bjorn Hurd MD Emergency Provider Active Sta rt: May 04, 2025 End: May 04, 2025 Team Status: Inactive Member Role Status Dates Dr. Radha Morgan MD Primary Care Provider Active Start: May 09, 2025 End: May 09, 2025 Dr. Radha Morgan MD Referring Provider Active Start: May 09, 2025 End: May 09, 2025 ANCELMO Edwards Attending Provider Active Start: May 09, 2025 End: May 09, 2025 Team Status: Active Member Role Status Dates Dr. Radha Morgan MD Primary Care Provider Active Start: May 09, 2025 ANCELMO Edwards Attending Provider Active Start: May 09, 2025 ANCELMO Edwards Referring Provider Active Start: May 09, 2025 <item> Privacy Markings (unrecogniz ed section and content) Section Author: Carina Busch PROHIBITION ON REDISCLOSURE OF CONFIDENTIAL INFORMATION This notice accompanies a disclosure of information concerning a client made to you with the consent of such client. Goals (unrecognized section and content) Goals may be documented in a n alternate section FOR RECORDS PERTAINING TO PATIENTS WHO ARE OR HAVE BEEN ENROLLED IN A CHEMICAL DEPENDENCY/SUBSTANCEABUSE PROGRAM, SOME INFORMATION MAY BE OMITTED. This clinical summary was aggregated from multiple sources. Caution should be exercised in using it in the provision of clinical care. This summary normalizes information from multiple sources, and as a consequence, information in this document may materially change the coding, format and clinical context of patient data. In addition, data may be omitted in some cases. CLINICAL DECISIONS SHOULD BE BASED ON THE PRIMARY CLINICAL RECORDS. [employer] provides no warranty or guarantee of the accuracy or completeness of information in this document.
== END | disposition home or self-care (01) ==
LOC: BIMLAB 14:17
PROVIDERS: PCP Internal Medicine; Referring Provider Nurse Practitioner Family; Visit Provider Nurse Practitioner Family
DX: E89.0 Postprocedural hypothyroidism (principal)
CPT/HCPCS: 36415; 84443

== ENCOUNTER → 2025-06-23 | Outpatient (CLI) | payer MEDICARE, MEDICAID, SELFPAY ==
[2025-06-23 16:21] LABS: HIV Nonreactive (Nonreactive); Syphilis Antibodies Nonreactive (Nonreactive)
== END | disposition home or self-care (01) ==
LOC: BIMLAB 12:56
PROVIDERS: PCP Internal Medicine; Referring Provider Nurse Practitioner Family; Visit Provider Nurse Practitioner Family
DX: Z71.1 Person with feared health complaint in whom no diagnosis is made (principal); Z11.3 Encounter for screening for infections with a predominantly sexual mode of transmission
CPT/HCPCS: 36415; 86703; 86780; 87491; 87591

== ENCOUNTER → 2025-07-14 | Outpatient (CLI) | payer MEDICARE, MEDICAID, SELFPAY ==
--- NOTE | 2025-07-14 13:39 | RAD_ITS ---
PROCEDURE: ABDOMEN SINGLE VIEW 07/14/2025 REASON FOR EXAM: CONSTIPATION W/OVERFLOW DIARRHEA TECHNIQUE: ABDOMEN SINGLE VIEW COMPARISON: None. FINDINGS: BOWEL: The bowel gas pattern is unremarkable. No bowel obstruction. Moderate stool in the colon. PERITONEUM/SOFT TISSUES: No appreciable free air. No abnormal calcifications. IUD projected over the pelvis chest left of midline. BONES: No acute osseous abnormality. RAD/Abdomen Single View IMPRESSION: Moderate colonic stool. Reading Location: [id number]
== END | disposition home or self-care (01) ==
LOC: RAD 13:37
PROVIDERS: PCP Internal Medicine
DX: R19.7 Diarrhea, unspecified (principal); K59.00 Constipation, unspecified
CPT/HCPCS: 74018